=== PATIENT | male | born 1950 | race Caucasian/White ===

== ENCOUNTER 2016-06-09 12:58 | Emergency (ER) | payer MEDICARE, MEDICAID ==
[~2016-06-09] VITALS: Ht 170.2 cm; Wt 112.5 kg
[2016-06-09] MEDS ORDERED: ACAR100T (13:23)
[2016-06-09] MEDS ORDERED: WARF-23 (13:23)
[2016-06-09] MEDS ORDERED: ATEN50TA2 (13:23)
[2016-06-09] MEDS ORDERED: DOK (13:23)
[2016-06-09] MEDS ORDERED: ZIPR80CA12 (13:23)
[2016-06-09] MEDS ORDERED: SIMV20TA2 (13:23)
[2016-06-09] MEDS ORDERED: NITR0.4S14 (13:23)
[2016-06-09] MEDS ORDERED: HALO5TA (13:23)
[2016-06-09] MEDS ORDERED: BENZ5TA (13:23)
[2016-06-09] MEDS ORDERED: DOK100TA (13:23)
[2016-06-09] MEDS ORDERED: CLOP75TA2 (13:23)
[2016-06-09] MEDS ORDERED: INSULANT (13:23)
[2016-06-09] MEDS ORDERED: BREO1INH (13:23)
[2016-06-09] MEDS ORDERED: COUM7.5T PO (13:25)
[2016-06-09] MEDS ORDERED: NS 500 ML IV ONE (15:30)
[2016-06-09] MEDS ORDERED: CLINDAMYCIN 600 MG in APPROPRIATE DILUENT 1 EA IV ONE (15:30)
[2016-06-09 15:51] LABS: BASO % 0.5 % (0.0-1.0); EOS # 0.2 K/mm3 (0.0-0.50); LARGE UNSTAINED CELL # 0.1 K/mm3 (0.0-0.4); LYMPH % 9.6 % (24.0-44.0); MEAN CORPUSCULAR HEMOGLOBIN 30.9 pg (27.0-33.0); MEAN CORPUSCULAR VOLUME 93.6 fl (80.0-96.0); MONO # 0.6 K/mm3 (0.0-0.8); MONO % 5.6 % (0.0-5.0); NEUTROPHILS % 81.2 % (36.0-66.0); PLATELET COUNT, AUTOMATED 233 k/mm3 (150-450); RED CELL DISTRIBUTION WIDTH 13.7 % (11.5-14.5); WHITE BLOOD COUNT 9.8 K/mm3 (4.0-10.0)
[2016-06-09 16:05] LABS: CALCIUM LEVEL 9.6 MG/DL (8.8-10.2); CREATININE FOR GFR 2.19 MG/DL (0.70-1.30); GLOMERULAR FILTRATION RATE 32.3 (>49); POTASSIUM SERUM 4.8 MEQ/L (3.5-5.1)
[2016-06-09 16:11] LABS: ERYTHROCYTE SEDIMENTATION RATE 63 mm/hr (0-20)
[2016-06-09] MEDS ORDERED: CLEO300C2 PO (16:21)
--- NOTE | 2016-06-09 16:28 | REP ---
LEFT FOOT, FOUR VIEWS: HISTORY: Infection. There is no acute fracture or dislocation. The joint spaces are normal in appearance. Vascular calcification is present. IMPRESSION: There is no acute fracture or dislocation. Signed by Josh Harmon MD 06/09/2016 04:35 P
[2016-06-09 16:45] VITALS: BP 161/71
== END 2016-06-09 17:29 | disposition home or self-care (01) ==
LOC: M ED 14:59
DX: L03.116 Cellulitis of left lower limb (principal); E10.9 Type 1 diabetes mellitus without complications; I10 Essential (primary) hypertension; I25.2 Old myocardial infarction; E78.00 Pure hypercholesterolemia, unspecified; Z88.4 Allergy status to anesthetic agent; F17.200 Nicotine dependence, unspecified, uncomplicated; Z79.01 Long term (current) use of anticoagulants; Z79.899 Other long term (current) drug therapy

== ENCOUNTER 2016-06-27 10:24 | Emergency (ER) | payer MEDICARE, MEDICAID ==
[~2016-06-27] VITALS: Ht 172.7 cm; Wt 113.4 kg
[~2016-06-27 10:24] MED LIST: ACAR100T; ATEN50TA2; BENZ5TA; BREO1INH; CLEO300C2 PO; CLOP75TA2; COUM7.5T PO; DOK; DOK100TA; HALO5TA; INSULANT; NITR0.4S14; SIMV20TA2; WARF-23; ZIPR80CA12
[2016-06-27 12:23] LABS: BASO # 0.1 K/mm3 (0.0-0.2); BASO % 0.7 % (0.0-1.0); EOS # 0.1 K/mm3 (0.0-0.50); EOS % 1.2 % (0.0-3.0); LARGE UNSTAINED CELL # 0.1 K/mm3 (0.0-0.4); LARGE UNSTAINED CELL % 0.8 % (0.0-4.0); LYMPH % 10.8 % (24.0-44.0); MEAN CORPUSCULAR HEMOGLOBIN 30.6 pg (27.0-33.0); MEAN CORPUSCULAR HGB CONC 32.4 g/dl (32.0-36.5); MEAN CORPUSCULAR VOLUME 94.5 fl (80.0-96.0); MONO # 0.5 K/mm3 (0.0-0.8); MONO % 5.3 % (0.0-5.0); NEUTROPHILS # 6.9 K/mm3 (1.8-7.7); NEUTROPHILS % 81.2 % (36.0-66.0); PLATELET COUNT, AUTOMATED 183 k/mm3 (150-450); RED CELL DISTRIBUTION WIDTH 14.3 % (11.5-14.5); WHITE BLOOD COUNT 8.5 K/mm3 (4.0-10.0)
[2016-06-27 12:25] LABS: VENOUS O2 SATURATION 73.2 % (60.0-80.0); VENOUS PARTIAL PRESSURE CO2 49.6 mmHg (38.0-50.0); VENOUS PARTIAL PRESSURE O2 40.1 mmHg (30.0-50.0); VENOUS STANDARD HCO3 27.4 MEQ/L; VENOUS TOTAL CO2 31.4 MEQ/L (24.0-28.0)
[2016-06-27 12:37] LABS: INR 1.36
[2016-06-27 12:50] LABS: CALCIUM LEVEL 8.6 MG/DL (8.8-10.2); CREATININE FOR GFR 2.11 MG/DL (0.70-1.30); GLOMERULAR FILTRATION RATE 33.7 (>49); POTASSIUM SERUM 4.8 MEQ/L (3.5-5.1)
--- NOTE | 2016-06-27 14:20 | REP ---
AP PORTABLE CHEST: 06/27/2016. Comparison: 03/08/2016. Clinical history: DKA. Findings: Seated portable chest shows elevation of the right diaphragm laterally. Some subsegmental atelectatic change adjacent to it. No gross effusion or dense consolidation. The heart is enlarged even for this portable technique with left atrial and ventricular enlargement. No vascular redistribution or pulmonary edema. Some underlying fibrotic changes are noted. The aorta is without aneurysm. Airway is intact. There are diffuse degenerative changes in the spine. Impression: 1. Cardiomegaly without pulmonary edema or pleural effusion. 2. Some underlying fibrosis and COPD. 3. Elevated right diaphragm with some adjacent subsegmental atelectatic change. No definite infiltrate. Signed by Tristian June MD 06/27/2016 07:32 P
[2016-06-27] MEDS ORDERED: HumuLIN R (REGULAR) INSULIN (NovoLIN R) **100U/ML** PER UNIT SC ONE (14:30)
[2016-06-27 16:32] VITALS: BP 142/65
--- NOTE | 2016-06-27 21:14 | ECGEPIP ---
Stationary ECG Study [facility] - ED Test Date: 2016-06-27 Pat Name: MICHAEL ALVAREZ Department: Room: - Gender: M Ribbon Lap Machine Tender: alberto : 1950 Requested By: Dino Vera Order Number: [id number] Reading MD: Linette Gonzales Measurements Intervals [place] Rate: 73 P: 48 KS: 153 QRS: -42 QRSD: 110 T: 40 QT: 410 QTc: 453 Interpretive Statements SINUS RHYTHM POSSIBLE RIGHT VENTRICULAR CONDUCTION DELAY INFERIOR MYOCARDIAL INFARCTION, OF INDETERMINATE AGE WITH POSTERIOR EXTENSION Electronically Signed On 06-27-2016 21:13:55 EDT by Linette Gonzales
== END 2016-06-27 16:35 | disposition home or self-care (01) ==
LOC: M ED 11:26
DX: E11.65 Type 2 diabetes mellitus with hyperglycemia (principal); H26.9 Unspecified cataract; N18.9 Chronic kidney disease, unspecified; Z79.4 Long term (current) use of insulin

== ENCOUNTER → 2016-07-23 | Outpatient (REF) | payer MEDICARE, MEDICAID | LOC: M LAB REF 16:12 | PROVIDERS: ATTEND Surgery | DX: L97.524 Non-pressure chronic ulcer of other part of left foot with necrosis of bone (principal) ==

== ENCOUNTER → 2016-07-30 | Outpatient (REF) | payer MEDICARE, MEDICAID ==
[~2016-07-30] MED LIST changes: +ACAR100T PO; +ATEN50TA2 PO; +BENZ5TA PO; +BREO1INH INH; +COLA100C3 PO; +DOXY100T PO; +HALO5TA PO; +INSULANT SC; +LEG1TAB PO; +NITR4TASL SL; +PLAV75TA38 PO; +SIMV20TA2 PO; +TYLE325T5 PO; +WARF-21 PO; +ZIPR80CA12 PO
== END ==
LOC: M LAB REF 16:37
PROVIDERS: ATTEND Surgery
DX: E11.621 Type 2 diabetes mellitus with foot ulcer (principal); M86.172 Other acute osteomyelitis, left ankle and foot

== ENCOUNTER 2016-07-31 13:53 | Inpatient (IN) | payer MEDICARE, MEDICAID ==
[~2016-07-31] VITALS: Ht 170.2 cm; Wt 102.6 kg
[~2016-07-31 13:53] MED LIST changes: -ACAR100T PO; -ATEN50TA2 PO; -BENZ5TA PO; -BREO1INH INH; -COLA100C3 PO; -DOXY100T PO; -HALO5TA PO; -INSULANT SC; -LEG1TAB PO; -NITR4TASL SL; -PLAV75TA38 PO; -SIMV20TA2 PO; -TYLE325T5 PO; -WARF-21 PO; -ZIPR80CA12 PO
[2016-07-31] MEDS ORDERED: ACETAMINOPHEN 325 MG/10.15 ML UDC PO ONE (14:15)
[2016-07-31] MEDS ORDERED: MORPHINE 2 MG/ML 1ML SYRINGE IV ONE (14:15)
[2016-07-31] MEDS ORDERED: DOXY100T PO ×2 (14:22→15:59)
[2016-07-31 14:53] LABS: BASO % 0.2 % (0.0-1.0); EOS # 0.2 K/mm3 (0.0-0.50); EOS % 1.2 % (0.0-3.0); LARGE UNSTAINED CELL # 0.1 K/mm3 (0.0-0.4); LARGE UNSTAINED CELL % 0.8 % (0.0-4.0); LYMPH # 0.8 K/mm3 (1.5-4.5); LYMPH % 4.8 % (24.0-44.0); MEAN CORPUSCULAR HEMOGLOBIN 30.7 pg (27.0-33.0); MEAN CORPUSCULAR HGB CONC 33.1 g/dl (32.0-36.5); MEAN CORPUSCULAR VOLUME 92.7 fl (80.0-96.0); MONO # 0.7 K/mm3 (0.0-0.8); MONO % 4.1 % (0.0-5.0); NEUTROPHILS # 15.4 K/mm3 (1.8-7.7); NEUTROPHILS % 88.9 % (36.0-66.0); PLATELET COUNT, AUTOMATED 290 k/mm3 (150-450); RED CELL DISTRIBUTION WIDTH 13.5 % (11.5-14.5); WHITE BLOOD COUNT 17.3 K/mm3 (4.0-10.0)
[2016-07-31 15:12] LABS: CALCIUM LEVEL 8.4 MG/DL (8.8-10.2); CREATININE FOR GFR 2.22 MG/DL (0.70-1.30); GLOMERULAR FILTRATION RATE 31.8 (>49); POTASSIUM SERUM 4.2 MEQ/L (3.5-5.1)
[2016-07-31] MEDS ORDERED: PIPERACILLIN/TAZOBACTAM SOD 2.25 GM in D5W MINI-BAG PLUS 50 ML IV ONE (15:15)
[2016-07-31 15:42] LABS: ERYTHROCYTE SEDIMENTATION RATE 108 mm/hr (0-20)
[2016-07-31] MEDS ORDERED: ATEN50TA2 PO (15:59)
[2016-07-31] MEDS ORDERED: PLAV75TA38 PO (15:59)
[2016-07-31] MEDS ORDERED: COLA100C3 PO (15:59)
[2016-07-31] MEDS ORDERED: BENZ5TA PO (15:59)
[2016-07-31] MEDS ORDERED: ACAR100T PO (15:59)
[2016-07-31] MEDS ORDERED: NITR4TASL SL (16:04)
[2016-07-31] MEDS ORDERED: SIMV20TA2 PO (16:04)
[2016-07-31] MEDS ORDERED: HALO5TA PO (16:04)
[2016-07-31] MEDS ORDERED: TYLE325T5 PO (16:04)
[2016-07-31] MEDS ORDERED: LEG1TAB PO (16:04)
[2016-07-31] MEDS ORDERED: ZIPR80CA12 PO (16:04)
[2016-07-31] MEDS ORDERED: INSULANT SC ×2 (16:04)
[2016-07-31] MEDS ORDERED: BREO1INH INH (16:04)
[2016-07-31] MEDS ORDERED: WARF-21 PO (16:04)
[2016-07-31 17:00] VITALS: BP 135/65
[2016-07-31] MEDS ORDERED: VANCOMYCIN HCL 1,000 MG, VIAL MATE ADAPTER 1 EACH in D5W 250 ML IV ONE (17:00)
[2016-07-31] MEDS ORDERED: NITROGLYCERIN 0.4 MG SUBL TABLET SL PRN (17:00)
[2016-07-31] MEDS: PERCOCET 5MG/325MG TAB PO PRN (17:27)
[2016-07-31] MEDS: HEPARIN SOD (PORCINE) 5000 UNITS/ML VIAL SC SCH ×2 (17:37→23:41)
[2016-07-31] MEDS: WARFARIN SOD 7.5 MG TAB PO SCH (17:37)
[2016-07-31] MEDS ORDERED: VANCOMYCIN HCL 500 MG in D5W MINI-BAG PLUS 100 ML IV ONE (18:00)
[2016-07-31] MEDS: NS 1,000 ML IV SCH (18:58)
[2016-07-31] MEDS: BENZTROPINE 0.5 MG TAB PO SCH (18:58)
--- NOTE | 2016-07-31 19:05 | ECGEPIP ---
Stationary ECG Study [facility] Test Date: 2016-07-31 Pat Name: SATHISH ELIASD Department: Room: Q3346-02 Gender: M Finger Grip Machine Operator: rn : 1950 Requested By: JUANA HIDALGO Order Number: [id number] Reading MD: Sathish Hills Measurements Intervals [place] Rate: 67 P: 36 RI: 151 QRS: -31 QRSD: 107 T: 56 QT: 418 QTc: 442 Interpretive Statements SINUS RHYTHM MARKED LEFT AXIS DEVIATION INCOMPLETE RIGHT BUNDLE BRANCH BLOCK Old inferior wall myocardial infarct. NONSPECIFIC T-WAVE ABNORMALITY No significant change compared with 06/27/2016. Electronically Signed On 07-31-2016 19:05:34 EDT by Sathish Hills
--- NOTE | 2016-07-31 19:50 | REPUSA ---
MRI of the left foot Clinical statement: Diabetes, possible osteomyelitis. Technique: Multiecho multiplanar MRI images of the left foot were obtained without administration of contrast. No comparison is available. Ligaments: The ligaments appeared normal in caliber and contour. The achilles tendon appears grossly intact. Articular cartilage: Uniform signal and contour seen throughout the articular cartilage, with no oste ochondral defects appreciated. Bones: The osseous structures demonstrate uniform signal. No osseous tumors or lesions are seen. The bone marrow is unremarkable. Soft tissues: The surrounding soft tissues demonstrate diffuse edema. No focal fluid collection or ma ss is noted. The musculature appears within normal limits. No evidence of a joint effusion is seen. Impression: 1. No evidence of osteomyelitis. The osseous structures are unremarkable. 2. Mild diffuse nonspecific soft tissue edema.
[2016-07-31] MEDS: LEVEMIR (INSULIN DETEMIR) 1 UNITS/0.01ML SC SCH (20:24)
[2016-07-31] MEDS ORDERED: LEVEMIR (INSULIN DETEMIR) 1 UNITS/0.01ML SC ONE (20:30)
[2016-07-31] MEDS: SIMVASTATIN 20 MG TAB PO SCH (21:06)
[2016-07-31] MEDS: DOCUSATE SODIUM 100 MG CAP PO SCH (21:06)
[2016-07-31] MEDS: ZIPRASIDONE 80 MG CAP (GEODON) PO SCH (21:07)
[2016-07-31] MEDS: CEFEPIME HCL 2 GM in D5W MINI-BAG PLUS 50 ML IV SCH (21:11)
[2016-07-31 22:00] VITALS: BP 129/61
--- NOTE | 2016-07-31 23:02 | HPE ---
DATE OF ADMISSION: 07/31/2016 PRIMARY CARE PROVIDER: Dr. Alok Casey OUTPATIENT HAND INSPECTOR: Dr. Eugene Marcus HISTORY OF PRESENT ILLNESS: This patient is a 65-year-old male with past medical history significant for chronic obstructive pulmonary disease (COPD), hypertension, deep vein thrombosis (DVT), myocardial infarction ([place]), type 2 diabetes, peripheral neuropathy, schizoaffective disorder who came to [facility] for not feeling well and having a sense of doom. Patient has a history of chronic wound. Patient is being followed with intensive care medicine specialist, Dr. Marcus. Patient has been taking different antibiotics for his wound in the past few weeks. Currently, patient has been taking doxycycline; however, wound has not been showing significant improvement, and on 07/30/2016, patient had a wound debridement of partial amputation of the left 5th toe in the wound care clinic. When had arrived in emergency room, patient was found to have elevated white count and also have a temperature of 101.8, and hospitalist team was called for admission. ALLERGIES: BUPIVACAINE PAST MEDICAL HISTORY: 1. COPD. 2. Hypertension. 3. DVT. 4. [place]. 5. Type 2 diabetes. 6. Peripheral neuropathy. 7. Schizoaffective disorder. PAST SURGICAL HISTORY: 1. Spine infection. 2. Right above-knee amputation in 2001. 3. Cardiac stent in 2015. HOME MEDICATIONS: - Plavix 75 mg by mouth daily - nitroglycerine 0.4 mg sublingual - warfarin 7.5 mg daily - ziprasidone 80 mg twice a day - Lantus 35 units morning, 30 units evening - Tylenol 650 mg by mouth every 6 hours as needed - atenolol 50 mg by mouth daily - benztropine 0.5 mg at bedtime - Breo one puff inhalation daily - haloperidol 5 mg by mouth twice a day - simvastatin 20 mg by mouth daily - Patient was recently on doxycycline 100 mg by mouth twice a day. REVIEW OF SYSTEMS: GENERAL: Positive fever. No chills. HEENT: Decreased visual acuity due to bilateral cataracts; otherwise, no vision changes, no auditory changes. CARDIOVASCULAR: History of [place] status post stent. Currently does not have any chest pain or palpitations. RESPIRATORY: History of COPD. No wheezes. No cough. No sputum production. GASTROINTESTINAL: No nausea. No vomiting. No abdominal pain. MUSCULOSKELETAL: Chronic wound, and patient has a right above-knee amputation. Patient recently had a left 5th toe partial amputation in Dr. Marcus's wound care clinic on 07/30/2016. NEUROLOGIC: Decreased sensation in the extremities. OBJECTIVE: VITAL SIGNS: Temperature is 101.8, pulse is 78, respirations 18, blood pressure 132/64, pulse oximetry 94% in room air. GENERAL: Morbidly obese. Poor historian. Patient is alert, awake, and oriented times three. Very poor hygiene. HEENT: Normocephalic, atraumatic. Extraocular motor grossly intact. CARDIOVASCULAR: Positive S1, S2, regular rate. Positive systolic murmur. RESPIRATORY: Decreased breath sounds due to body habitus, but I cannot appreciate any wheezes. No rhonchi. ABDOMEN: Morbidly obese, soft, nontender, nondistended. Bowel sounds present. EXTREMITIES: The left 5th toe was amputated. There is erythema and some partial necrotic tissue, and the wound site has strong foul smell. There is some purulent discharge noted on the dressing. On the bottom of the left foot there is also a track of erythematous tissue. There are some chronic venous stasis changes and some early sign of infection of the left anterior briggs. Patient has a right-sided above-knee amputation. Sensation to fine touch is decreased in the peripheral extremities. Muscle strength 5/5. LABORATORY DATA: WBC 17.3, hemoglobin 12.6, hematocrit 38.1, platelet count is 290. ESR is 108. Sodium is 137, potassium 4.2, chloride 100, carbon dioxide 28, BUN 37, creatinine 2.22, GFR 31.8, fasting glucose 161, calcium is 8.4. C-reactive protein is 13.2. ASSESSMENT AND PLAN: 1. Left foot infection. Patient will be admitted to medical/surgical floor under inpatient status. Patient's recent wound care clinic notes were reviewed. Patient has been working with Dr. Marcus for his ongoing chronic wound. According to clinic notes, patient's left 5th partial amputated toe showed complete ischemic necrosis to the level of the web space with underlying purulent material. The 5th toe was completely amputated and debrided in the clinic on 07/30/2016. Today during examination, there is concern for active infection, and I will order imaging study to rule out osteomyelitis. Patient has diabetes, very noncompliant, and patient has a chronic wound. Patient also has a history of methicillin-resistant Staphylococcus aureus (MRSA). Patient was started on vancomycin and cefepime. It may be beneficial to have surgical evaluation. Unfortunately, at this moment our infectious disease specialist is not available at this moment. We will follow the blood cultures. 2. Patient has a history of deep vein thrombosis (DVT). According to the history, patient was prescribed warfarin. Will follow with INR. The last few INR measurements show patient's INR has been subtherapeutic. It raises the concern for severe noncompliance. Will continue to adjust the patient's warfarin dosage. 3. Type 2 insulin-dependent diabetes. Patient had an A1c of 8.3 in June. According to patient, patient usually has a tendency not to use the insulin as instructed. He also has sign of significant medical noncompliance. 4. Hypertension. Will continue to follow. Patient is on atenolol. 5. History of myocardial infarction ([place]), status post cardiac stent. Patient is on Plavix. 6. Bilateral cataracts. 7. Peripheral neuropathy. 8. Schizoaffective disorder. Patient taking haloperidol, and patient taking ziprasidone. 9. Deep vein thrombosis (DVT) prophylaxis. Patient will be on heparin.
[2016-08-01] VITALS (9 sets, daily range): BP systolic 128–190; BP diastolic 66–85
[2016-08-01] MEDS: PERCOCET 5MG/325MG TAB PO PRN ×4 (03:53→20:33)
[2016-08-01] MEDS: HEPARIN SOD (PORCINE) 5000 UNITS/ML VIAL SC SCH (06:00)
[2016-08-01] MEDS: CEFEPIME HCL 2 GM in D5W MINI-BAG PLUS 50 ML IV SCH ×2 (07:17→20:32)
[2016-08-01] MEDS: NS 1,000 ML IV SCH ×2 (07:18→15:40)
[2016-08-01 08:26] LABS: MEAN CORPUSCULAR HEMOGLOBIN 30.2 pg (27.0-33.0); MEAN CORPUSCULAR HGB CONC 33.2 g/dl (32.0-36.5); MEAN CORPUSCULAR VOLUME 90.9 fl (80.0-96.0); RED CELL DISTRIBUTION WIDTH 13.5 % (11.5-14.5); WHITE BLOOD COUNT 14.1 K/mm3 (4.0-10.0)
[2016-08-01] MEDS ORDERED: LIDOCAINE 1% MDV 20ML VIAL As Ordered ONE (08:29)
[2016-08-01 08:50] LABS: CALCIUM LEVEL 7.6 MG/DL (8.8-10.2); CREATININE FOR GFR 2.06 MG/DL (0.70-1.30); GLOMERULAR FILTRATION RATE 34.7 (>49); MAGNESIUM LEVEL 1.8 MG/DL (1.8-2.4); POTASSIUM SERUM 4.1 MEQ/L (3.5-5.1)
[2016-08-01] MEDS ORDERED: fentaNYL 100 MCG/2 ML INJECTION (J3010) As Ordered ONE (08:56)
[2016-08-01] MEDS ORDERED: MIDAZOLAM INJ 2 MG/2 ML VIAL (J2250) As Ordered ONE (08:56)
[2016-08-01] MEDS ORDERED: PROPOFOL 200 MG/20 ML VIAL As Ordered ONE (08:57)
[2016-08-01] MEDS: VANCOMYCIN HCL 1,000 MG, VIAL MATE ADAPTER 1 EACH in D5W 250 ML IV SCH (09:00)
[2016-08-01 09:11] LABS: INR 2.5
[2016-08-01] MEDS ORDERED: VANCOMYCIN 1000 MG/20 ML VIAL (J3370) As Ordered ONE (09:23)
[2016-08-01] MEDS ORDERED: D5W 250ML BAG As Ordered ONE (09:27)
[2016-08-01] MEDS ORDERED: LR 1,000 ML IV SCH (09:30)
[2016-08-01] MEDS ORDERED: fentaNYL 100 MCG/2 ML INJECTION (J3010) IV PRN (09:30)
[2016-08-01] MEDS ORDERED: ONDANSETRON 4MG/2ML VIAL (J2405) IV PRN (09:30)
[2016-08-01] MEDS: LEVEMIR (INSULIN DETEMIR) 1 UNITS/0.01ML SC SCH ×2 (10:54→20:32)
[2016-08-01] MEDS: CLOPIDOGREL 75 MG TAB PO SCH (10:55)
[2016-08-01] MEDS: DOCUSATE SODIUM 100 MG CAP PO SCH ×2 (10:55→20:32)
[2016-08-01] MEDS: ATENOLOL 50 MG TAB PO SCH (10:55)
[2016-08-01] MEDS: ZIPRASIDONE 80 MG CAP (GEODON) PO SCH ×2 (10:55→20:33)
--- NOTE | 2016-08-01 11:33 | PHACANCOPD ---
PHARMACY VANCOMYCIN DOSING Pt Demographics Demographics Patient Age:65 , Weight:107.000 , Gender: male Adjusted Body Weight Date: 08/01/16, Adjusted Body Weight: [82] Kg Events Past 24 Hours Events Past 24 Hours: YES: Elevation in WBC, Pending Procedures, NO: Dialysis, Diuretic Therapy, Change in CrCl, Fever, Pending Diagnostics, Other Vancomycin Vancomycin indication: Hx of MRSA Vancomycin Target Ranges: 15-20 mcg/ml Vancomycin Load Y/N: Yes Load Dose Date Time Vancomycin Load Dose: 1500mg Date: 07/31 Time: ~19:00 Vancomycin Dose Date: 08/01/16. Current Vancomycin Dose: [1g IV q24h @09] Intermittent Dosing?: No Labs Labs Item Value Date Time White Blood Count 17.3 K/mm3 H 07/31/16 1436 White Blood Count 14.1 K/mm3 H 08/01/16 0809 Creatinine 2.22 MG/DL H 07/31/16 1436 Creatinine 2.06 MG/DL H 08/01/16 0809 C-Reactive Protein, Quantitative 13.20 MG/DL H 07/31/16 1436 C-Reactive Protein, Quantitative 13.80 MG/DL H 08/01/16 0809 Micro Microbiology 07/31/16 Blood Culture, Received Pending 07/31/16 Blood Culture, Received Pending 08/01/16 Gram Stain, Received Pending 08/01/16 Wound Culture, Received Pending 08/01/16 Anaerobic Culture, Received Pending 07/31/16 Wound Culture, Received Pending Creatinine Clearance Date:08/01/16. Creatinine Clearance: [41 ml/min]. Pending Labs Vanco trough scheduled 08/02 @08:00 Assessment and Plan Maintaining Current Dose?: Yes Reason for dose change: No Dose Change Pharmacist Note Pharmacist Note Date: 08/01/16. Pharmacist note: pt has been admitted for left foot cellulitis/ osteomyelitis s/p 5th toe amputation. He has failed outpatient doxycycline. Pt went to the OR this morning for incision and drainage, cultures are pending. The last left leg wound culture done in our lab was in 2011 and grew MRSA (SUKH = 1). Baseline SCr appears to be ~2, SCr has improved today from yesterday. He has not been on vancomycin here since 2001, I started him with a 1500mg load, followed by 1g q24h to start ~12 hours later. I have a trough scheduled tomorrow before the 3rd dose. We will continue to monitor. Mikey Edge.D. August 01, 2016 11:33
--- NOTE | 2016-08-01 12:33 | IPN ---
DATE OF SERVICE: 08/01/2016 The patient seen and examined. No acute events overnight. Denies any fevers, chills. Reported chronic back pain. VITAL SIGNS: Temperature 97.6, pulse 63, respiration 20, blood pressure 167/94, pulse oximetry 95% on room air. LABORATORY: WBC 14.1, hemoglobin and hematocrit 12.8/38.4, platelets 253. Chemistry: Sodium 140, potassium 4.1, chloride 107, bicarbonate 26, BUN 36, creatinine 2.06. MRI: No evidence of osteomyelitis. Soft tissue edema, diffuse. PHYSICAL EXAMINATION: GENERAL: The patient morbidly obese. Poor historian. Alert and oriented. In no acute distress. Poor hygiene. HEENT: Normocephalic, atraumatic. Pupils bilaterally equal, round, and reactive. CARDIOVASCULAR: Regular rate and rhythm. Normal S1, S2. 2/6 systolic murmur. RESPIRATION: Decreased breath sound bilateral base. No wheeze, rales, or rhonchi. ABDOMEN: Morbidly obese, soft, nontender. Positive bowel sounds. EXTREMITIES: Left 5th toe amputated, erythema and partial necrotic tissue. Wound site is foul-smelling, purulent. Discharge noted. The patient has right-side above-knee amputation. ASSESSMENT AND PLAN: This is a 65-year-old male patient with past medical history significant for chronic obstructive pulmonary disease (COPD), hypertension, deep venous thrombosis (DVT), myocardial infarction, coronary arterial disease, type 2 diabetes, peripheral neuropathy, schizoaffective disorder, who came to [facility] with left foot infection, cellulitis. Problems: 1. Left foot ulcers and cellulitis. MRI negative for osteomyelitis. The patient was originally followed by Dr. Marcus. The patient's left 5th toe partial amputation was done for ischemic necrosis, but actually Dr. Carter has been consulted. They can take him to the operating room (OR) for debridement. 2. History of methicillin-resistant Staphylococcus aureus (MRSA). Started on vancomycin and cefepime. Will consult infectious disease, Dr. Gaona, for antibiotic recommendation. Followup cultures. 3. History of deep venous thrombosis. Continue Coumadin. Followup international normalized ratio (INR). Currently, is therapeutic. The patient poorly compliant. 4. Type 2 insulin-dependent diabetes. Poorly compliant with diabetic neuropathy. Continue insulin regimen as ordered. Adjust as needed. 5. Hypertension. The patient on atenolol. Continue current medication. 6. Coronary arterial disease. The patient on Plavix, atenolol, and Coumadin. 7. Bilateral cataract. Outpatient followup. 8. Peripheral neuropathy. Outpatient followup. Continue current medication. 9. Schizoaffective disorder. Continue home medication, Geodon and Haldol. 10. Deep venous thrombosis (DVT) prophylaxis. The patient is on Coumadin with therapeutic INR. DISPOSITION: Pending clinical improvement. Infectious disease consultation.
[2016-08-01] MEDS: HALOPERIDOL 5 MG TAB PO SCH (13:23)
--- NOTE | 2016-08-01 14:36 | CR ---
DATE OF CONSULTATION: 07/31/2016 REASON FOR CONSULTATION: Left foot infection. HISTORY: Sathish Cisneros is a 65-year-old diabetic male who was admitted to the hospital earlier this morning with left foot infection. The patient states that he has had a wound to his left foot with infection, for which he has been undergoing treatment by Dr. Marcus. He states that yesterday, he had an amputation of his left fifth toe at the wound care center. He had previously been on doxycycline which he states was prescribed by his primary care physician. He notes that this morning, he was having significant pain, worsening redness to his foot, and states just felt sick, so he called the ambulance to be brought to the hospital. He states the redness does appear to be worse to him compared to yesterday on his foot. Per hospitalist Dr. Marcus was attempted to be contacted but was unable to be reached. PAST MEDICAL HISTORY: Significant for diabetes uncontrolled, hypertension, high cholesterol, history of right leg amputation in peripheral vascular disease, history of [place], COPD PAST SURGICAL HISTORY: 1. Right leg amputation, states around 2001. 2. A fifth toe amputation. 3. Cardiac stent ALLERGIES: BUPIVACAINE. SOCIAL HISTORY: The patient admits to smoking. CURRENT MEDICATIONS: Vancomycin, atenolol, Plavix, haloperidol, insulin, Colace, simvastatin, Geodon, cefepime, Cogentin, Nitrostat, Coumadin, Tylenol, Percocet. VITAL SIGNS: Temperature maximum (T-max) on admission was 101.8, most recently is 98.7, blood pressure 135/65, pulse 66, pulse oximetry 90% on room air. Respiratory rate is 14. LABORATORY DATA: White blood cell count on admission was 17.3, ESR is 108. Hemoglobin 12.6, hematocrit 38.1. CRP is 13.2. Creatinine is 2.22 and GFR of 31.8. Hemoglobin A1c is 8.2. LOWER EXTREMITY EXAMINATION: There has been amputation of the right leg. Left foot is examined. There has been amputation of the left fifth toe. There is erythema extending proximally from the wound site, as well as at the dorsal aspect of the foot, as well as plantarly into the mid arch. There is general tenderness along palpation of the erythema. There is warmth. There is some necrotic tissue within the wound. Pulses are weakly palpable. There is good capillary refill to the distal toes. There is pigment change to the left lower leg consistent with venous disease. CULTURE REPORTS: Blood and wound cultures are pending. IMAGING: MRI images are also pending at this time. ASSESSMENT: A 65-year-old male status post left fifth toe amputation with extending cellulitis, diabetes, peripheral vascular disease. PLAN: We will plan to take him to the operating room tomorrow for incision and drainage. Continue current antibiotics. We will take more cultures in the operating room. We will plan to leave wound open. The patient will continue his wound care with Dr. Marcus once infection is controlled. FLORENTINO
[2016-08-01] MEDS: WARFARIN SOD 7.5 MG TAB PO SCH (16:25)
[2016-08-01] MEDS: BENZTROPINE 0.5 MG TAB PO SCH (17:41)
[2016-08-01] MEDS: SIMVASTATIN 20 MG TAB PO SCH (20:32)
[2016-08-02] MEDS: PERCOCET 5MG/325MG TAB PO PRN ×4 (01:03→20:49)
[2016-08-02 02:00] VITALS: BP 133/76
[2016-08-02 06:00] VITALS: BP 141/66
[2016-08-02 06:47] LABS: MEAN CORPUSCULAR HEMOGLOBIN 29.7 pg (27.0-33.0); MEAN CORPUSCULAR HGB CONC 32.2 g/dl (32.0-36.5); MEAN CORPUSCULAR VOLUME 92.3 fl (80.0-96.0); RED CELL DISTRIBUTION WIDTH 13.7 % (11.5-14.5); WHITE BLOOD COUNT 14.3 K/mm3 (4.0-10.0)
[2016-08-02 06:49] LABS: INR 2.87
[2016-08-02 06:57] LABS: CALCIUM LEVEL 8.1 MG/DL (8.8-10.2); CREATININE FOR GFR 2.32 MG/DL (0.70-1.30); GLOMERULAR FILTRATION RATE 30.2 (>49); MAGNESIUM LEVEL 1.9 MG/DL (1.8-2.4); POTASSIUM SERUM 3.9 MEQ/L (3.5-5.1)
--- NOTE | 2016-08-02 08:49 | RO ---
DATE OF PROCEDURE: 08/01/2016 PREOPERATIVE DIAGNOSIS: Left foot cellulitis. POSTOPERATIVE DIAGNOSIS: Left foot cellulitis. PROCEDURE: Left foot incision and drainage. SURGEON: Shine Carter DPM TAP AND DIE MAKER TECHNICIAN: None. ANESTHESIA: Monitored anesthesia care with preop injection of 18 mL of 1% lidocaine plain. ESTIMATED BLOOD LOSS: Minimal. MATERIALS: None. HEMOSTASIS: None. COMPLICATIONS: None. CONDITION: Stable. SPECIMEN: Left proximal phalanx for pathology and swab cultures aerobic and anaerobic. INDICATIONS FOR PROCEDURE: Sathish Cisneros is a 65-year-old male who was admitted to the hospital yesterday with worsening left foot infection. He states that in July 30, he had amputation of his 5th toe by Dr. Marcus at the wound care center. He states overnight he had worsening pain and worsening redness to his foot and that he felt like he had a fever and felt sick. He called the ambulance and was brought to the hospital. There, he was admitted and started on antibiotics. He was noted to have erythema extending from the amputation site with some necrosis within the wound. The decision was made to bring him to the operating room for irrigation and drainage. The patient side and site were identified and marked in the preop holding area. Consent was reviewed and obtained. All risks, complications and alternatives to the procedure were explained to the patient in detail. All questions were answered. DESCRIPTION OF PROCEDURE: Patient was brought to the operating room and placed on the operating room table in supine position. Monitored anesthesia care was delivered by the anesthesia team. Preoperative injection of 18 mL of 1% lidocaine plain were injected to the left foot. The left foot was prepped with Betadine solution in a normal sterile fashion. No tourniquet was applied due to the patient's poor blood flow. The wound was inspected. There were some gangrenous changes around the periphery of the amputation site. There was some necrotic tissue within the wound. There was erythema extending dorsally and plantarly into the mid arch. A dorsal incision was made at the dorsal aspect of the left 5th toe amputation site. The remaining portion of the proximal phalanx was identified. This was dysvascular and necrotic in appearance. This was disarticulated at the metatarsophalangeal joint and sent for pathology. The remaining necrotic tissue was debrided. There was tracking noted plantarly consistent with area of erythema along the plantar arch. No tracking was found dorsally. Pulsatile lavage was used to irrigate the area. Deep culture swabs were taken. Any remaining necrotic tissue was debrided. Packing was placed, 1/4-inch, along the plantar tracking and saline soaked gauze was used to pack the remaining portion of the wound. Sterile dressings were applied. The patient was brought to PACU with vital signs stable and neurovascular status intact. He will be readmitted to the floor for continuing antibiotics, await speciation. Will continue to follow. cc: Eugene Marcus MD
[2016-08-02] MEDS: ZIPRASIDONE 80 MG CAP (GEODON) PO SCH ×2 (09:41→20:46)
[2016-08-02] MEDS: HALOPERIDOL 5 MG TAB PO SCH (09:41)
[2016-08-02] MEDS: ATENOLOL 50 MG TAB PO SCH (09:41)
[2016-08-02] MEDS: CLOPIDOGREL 75 MG TAB PO SCH (09:41)
[2016-08-02] MEDS: DOCUSATE SODIUM 100 MG CAP PO SCH ×2 (09:41→20:46)
[2016-08-02] MEDS: CEFEPIME HCL 2 GM in D5W MINI-BAG PLUS 50 ML IV SCH (09:41)
[2016-08-02] MEDS: LEVEMIR (INSULIN DETEMIR) 1 UNITS/0.01ML SC SCH ×2 (09:42→20:46)
[2016-08-02] MEDS: VANCOMYCIN HCL 1,000 MG, VIAL MATE ADAPTER 1 EACH in D5W 250 ML IV SCH (09:42)
--- NOTE | 2016-08-02 10:07 | HPE ---
DATE OF ADMISSION: 08/02/2016 The patient is seen and examined at bedside, denies overnight complaints, says his pain is currently controlled, denies nausea or vomiting, fever or chills. Temperature is 97.3, temperature maximum (T-max) is 98.9. Other vitals are stable. LABORATORY DATA: Labs are reviewed. White blood cell count 14.3, hemoglobin 11.2 , hematocrit 34.7, CRP 15.6. Cultures and gram stains are pending. Pathology is pending. LOWER EXTREMITY EXAMINATION: There is sanguineous drainage within the dressings. Upon removal, there is no active bleeding. There is improvement in odor and appearance of the wound. There is minimal necrosis within the wound, no purulence, improvement in erythema surrounding the wound. ASSESSMENT: 65-year-old male with infection status post left fifth toe amputation, status post incision and drainage. PLAN: Continue current antibiotics, await cultures, infectious disease has been consulted. The patient states that he is scheduled for an angiogram with vascular surgeon tomorrow. The case was discussed with Dr. Marcus, presently will plan local wound care and continued antibiotics. Will plan follow up with Dr. Marcus once patient discharged. Continue current wound care presently. Will follow. [facility]ATR[facility] CENTERAlexandru
[2016-08-02 14:00] VITALS: BP 169/79
[2016-08-02] MEDS: LR 1,000 ML IV SCH (14:05)
--- NOTE | 2016-08-02 14:06 | PHACANCOPD ---
PHARMACY VANCOMYCIN DOSING Pt Demographics Demographics Patient Age:65 , Weight:106.700 , Gender: male Adjusted Body Weight Date: 08/01/16, Adjusted Body Weight: [82] Kg Events Past 24 Hours Events Past 24 Hours: YES: Change in CrCl, NO: Dialysis, Diuretic Therapy, Fever, Elevation in WBC, Pending Diagnostics , Pending Procedures, Other Vancomycin Vancomycin indication: Hx of MRSA Vancomycin Target Ranges: 15-20 mcg/ml Vancomycin Load Y/N: Yes Load Dose Date Time Vancomycin Load Dose: 1500mg Date: 07/31 Time: ~19:00 Vancomycin Dose Date: 08/02/16. Current Vancomycin Dose: [1g IV q24h @09] Date: 08/01/16. Current Vancomycin Dose: [1g IV q24h @09] Intermittent Dosing?: No Labs Labs Item Value Date Time White Blood Count 17.3 K/mm3 H 07/31/16 1436 White Blood Count 14.1 K/mm3 H 08/01/16 0809 White Blood Count 14.3 K/mm3 H 08/02/16 0621 Creatinine 2.22 MG/DL H 07/31/16 1436 Creatinine 2.06 MG/DL H 08/01/16 0809 Creatinine 2.32 MG/DL H 08/02/16 0621 Vancomycin Level Trough 11.2 UG/ML 08/02/16 0810 C-Reactive Protein, Quantitative 13.20 MG/DL H 07/31/16 1436 C-Reactive Protein, Quantitative 13.80 MG/DL H 08/01/16 0809 C-Reactive Protein, Quantitative 15.60 MG/DL H 08/02/16 0621 Micro Microbiology 07/31/16 Blood Culture - Preliminary, Resulted No growth after 24 hours . All specim... 07/31/16 Blood Culture - Preliminary, Resulted No growth after 24 hours . All specim... 08/01/16 Gram Stain - Final, Resulted 08/01/16 Wound Culture, Resulted Pending 08/01/16 Anaerobic Culture, Resulted Pending 07/31/16 Wound Culture - Preliminary, Resulted Staphylococcus Epidermidis Streptococcus Group C Creatinine Clearance Date:08/01/16. Creatinine Clearance: [41 ml/min]. Pending Labs Vanco trough scheduled 08/02 @08:00 Assessment and Plan Maintaining Current Dose?: Yes Reason for dose change: No Dose Change Pharmacist Note Pharmacist Note 08/02/16: Pt's Scr increased from yesterday 2.06 to 2.32 today. There was a decrease in WBC. Wound culture is pending still on foot with no blood growth after 24 hours, but toe grew staph and strep. We are going to continue vanc 1g q24h@9 as trough level is still trending upwards towards our goal of 15-20mcg/ ml. We will continue to monitor Scr and make dosing adjustments as necessary. Date: 08/01/16. Pharmacist note: pt has been admitted for left foot cellulitis/ osteomyelitis s/p 5th toe amputation. He has failed outpatient doxycycline. Pt went to the OR this morning for incision and drainage, cultures are pending. The last left leg wound culture done in our lab was in 2011 and grew MRSA (SUKH = 1). Baseline SCr appears to be ~2, SCr has improved today from yesterday. He has not been on vancomycin here since 2001, I started him with a 1500mg load, followed by 1g q24h to start ~12 hours later. I have a trough scheduled tomorrow before the 3rd dose. We will continue to monitor. JULIANNA CALLE PHARMACY August 02, 2016 14:06
[2016-08-02] MEDS: ACETYLCYSTEINE 20% 4 ML VIAL (200MG/ML) PO SCH ×2 (16:33→20:46)
[2016-08-02] MEDS ORDERED: WARFARIN SOD 7.5 MG TAB PO SCH (17:00)
[2016-08-02] MEDS: BENZTROPINE 0.5 MG TAB PO SCH (17:43)
[2016-08-02] MEDS: SIMVASTATIN 20 MG TAB PO SCH (20:47)
[2016-08-02 22:00] VITALS: BP 145/70
[2016-08-03] VITALS (7 sets, daily range): BP systolic 130–160; BP diastolic 73–82
[2016-08-03] MEDS: LR 1,000 ML IV SCH ×2 (02:37→17:43)
[2016-08-03] MEDS: PERCOCET 5MG/325MG TAB PO PRN ×2 (02:37→21:14)
--- NOTE | 2016-08-03 05:43 | CR ---
DATE OF CONSULTATION: 08/02/2016 REASON FOR CONSULTATION: Asked to consult by hospitalist for evaluation of left foot cellulitis with acute osteomyelitis of the left 5th toe that was amputated. HISTORY OF PRESENT ILLNESS: Mr. Cisneros is a 65-year-old gentleman with neuropathic diabetic insulin-dependent diabetes, poorly controlled, continued tobacco abuse. He has had an open ulceration on the left foot for at least 3-4 weeks. He was seen the first time by Dr. Marcus on July 16, where he described his toe at that time to be infected with a diabetic foot ulcer. The patient had been on Augmentin 875 mg twice a day by his primary care provider, Dr. Alok Casey, that was started on June 30. He was seen in followup a week later, and Dr. Marcus did describe the toe as being gangrenous. On July 30 he had an amputation of the toe done at the clinic. The patient developed severe pain in his foot with fever, chills, and worsening redness that extended into his foot, and therefore he came to the hospital. The patient was taken to the operation room by Dr. Shine Carter and had debridement of the wound and amputation of the toe. The proximal residual phalanx was sent for pathology and culture. The wound was described as being necrotic. There was erythema extended dorsally into the mid arch, and the remaining portion of the proximal phalanx was amputated. Patient is doing fairly well today, but he was taking his shower and was having a hard time getting into bed. He asked not to be bothered. MEDICAL HISTORY: 1. Insulin-dependent diabetes, poorly controlled. 2. Chronic obstructive pulmonary disease (COPD). 3. Hypertension. 4. History of deep venous thrombosis (DVT). 5. Myocardial infarction. 6. Coronary artery disease with stenting. 7. Peripheral neuropathy. 8. Schizoaffective disorder. 9. 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 He had a femoral popliteal bypass graft done to that leg in June 2001 and eventually ended up with a below-knee amputation (BKA) after failure of bypass. SURGICAL HISTORY: 1. Spine infection in the 1960s. 2. Right above-knee amputation in 2001 after three debridements and right femoral popliteal graft stenting. SOCIAL HISTORY: Patient smokes at least a pack a day. He is not interested in quitting. ALLERGIES: BUPIVACAINE. REVIEW OF SYSTEMS: He has fever but no chills. He has decreased visual acuity due to cataracts. He denied having any chest pain at this time. He has no cough or shortness of breath. He had some nausea on admission, but now he is feeling better. No abdominal pain. He had a right above-knee amputation. Has not used his prosthesis for awhile. He just uses a walker around the house. He has some pain in the foot after surgery and decreased sensation in both feet. MEDICATIONS: - warfarin 6 mg by mouth daily - Mucomyst 600 mg twice a day - vancomycin 1 gram IV every 24 hours - atenolol 50 mg by mouth daily - Plavix 75 mg daily - Haldol 5 mg daily - Levemir 35 units in the morning and 30 units at bedtime - Colace 100 mg by mouth twice a day - Zocor 20 mg by mouth at bedtime - Geodon 80 mg by mouth twice a day - cefepime 2 grams IV every 12 hours - Cogentin 0.5 mg every 6 p.m. - nitroglycerine as needed - Percocet as needed for pain LABORATORY DATA: White count on admission was 17.3, today was 14.3, hemoglobin 11.2, hematocrit 34.7, platelets 291, ESR 108. Sodium 140, potassium 3.9, chloride 106, bicarbonate 29, BUN 32, creatinine 2.32 , glucose 78. HbA1c is 8.2. CRP was 13.2 on admission, up to 15.6 today. PHYSICAL EXAMINATION: He is a healthy, obese gentleman in no acute distress. He seems unhappy. He has pain in his foot. HEART: Normal S1, S2 with no murmurs appreciated. LUNGS: Clear. Diminished at bases. No wheezes. ABDOMEN: Morbidly obese. Soft, nontender. EXTREMITIES: Diminished popliteal pulses on the left side. Right BKA with stump well healed. Left foot at site of amputation, 5th toe amputation was not examined, but he has tenderness and erythema extending along the plantar aspect of the foot, which I could see under the dressing. NEUROLOGIC: He is alert and oriented times three. Moves all extremities, but he is unhappy. MICROBIOLOGY: Blood cultures from 07/31/2016: No growth after 48 hours. Wound culture from the left foot in the emergency room (ER) with Staphylococcus epidermidis and group C streptococcus. Intraoperative wound cultures are still pending. The Gram stain had no cells, no organisms seen. IMPRESSION: This is a 65-year-old gentleman who had acute osteomyelitis of the 5th toe, status post amputation at the office, who developed gangrene and worsening cellulitis involving the foot. He had been on Augmented for a short course of 2 weeks followed by doxycycline. When he was admitted he should have still been on doxycycline. Most likely the cellulitis is from group B streptococcus, less likely Staphylococcus epidermidis. The patient is on vancomycin and cefepime. Cefepime is overkill. PLAN: Discontinue IV cefepime. Continue with vancomycin until results of wound culture are available, I suspect that he will only need ceftriaxone 2 grams daily after checking on the wound and discussing the case with Dr. Carter. Will decide whether he will need prolonged IV antibiotics, but my suspicion is the whole bone infection was clear. He had an MRI done on admission, which showed soft tissue swelling but no evidence of osteomyelitis. This will be discussed with Dr. Marcus and Dr. Carter at a later time, and further antibiotic decision will depend on findings. FLORENTINO
[2016-08-03 08:02] LABS: MEAN CORPUSCULAR HEMOGLOBIN 29.8 pg (27.0-33.0); MEAN CORPUSCULAR HGB CONC 32.5 g/dl (32.0-36.5); MEAN CORPUSCULAR VOLUME 91.9 fl (80.0-96.0); RED CELL DISTRIBUTION WIDTH 13.7 % (11.5-14.5); WHITE BLOOD COUNT 13.8 K/mm3 (4.0-10.0)
[2016-08-03 08:17] LABS: INR 2.97
[2016-08-03 08:38] LABS: CALCIUM LEVEL 7.8 MG/DL (8.8-10.2); CREATININE FOR GFR 2.06 MG/DL (0.70-1.30); GLOMERULAR FILTRATION RATE 34.7 (>49); MAGNESIUM LEVEL 2.1 MG/DL (1.8-2.4); POTASSIUM SERUM 3.9 MEQ/L (3.5-5.1)
[2016-08-03] MEDS: ACETYLCYSTEINE 20% 4 ML VIAL (200MG/ML) PO SCH ×2 (08:51→21:00)
[2016-08-03] MEDS: VANCOMYCIN HCL 1,000 MG, VIAL MATE ADAPTER 1 EACH in D5W 250 ML IV SCH (08:52)
[2016-08-03] MEDS: DOCUSATE SODIUM 100 MG CAP PO SCH ×2 (08:53→21:00)
[2016-08-03] MEDS: ATENOLOL 50 MG TAB PO SCH (08:53)
[2016-08-03] MEDS: HALOPERIDOL 5 MG TAB PO SCH (08:53)
[2016-08-03] MEDS: CLOPIDOGREL 75 MG TAB PO SCH (08:53)
[2016-08-03] MEDS: LEVEMIR (INSULIN DETEMIR) 1 UNITS/0.01ML SC SCH ×2 (08:53→21:00)
[2016-08-03] MEDS: ZIPRASIDONE 80 MG CAP (GEODON) PO SCH ×2 (08:54→21:00)
[2016-08-03] MEDS ORDERED: fentaNYL 100 MCG/2 ML INJECTION (J3010) As Ordered ONE (09:24)
[2016-08-03] MEDS ORDERED: MIDAZOLAM INJ 2 MG/2 ML VIAL (J2250) As Ordered ONE (09:25)
[2016-08-03] MEDS ORDERED: ISOVUE-300 61% 50ML VIAL (Q9967) As Ordered ONE (09:25)
[2016-08-03] MEDS ORDERED: HEPARIN 1,000 UNITS/ML 10ML VIAL (FOR RADIOLOGY& DIALYSIS ONLY) As Ordered ONE (09:25)
[2016-08-03] MEDS ORDERED: PROTAMINE SULF INJ 50 MG/5 ML VIAL (J2720) As Ordered ONE (10:10)
[2016-08-03] MEDS ORDERED: LIDOCAINE 2% MDV 20 ML VIAL As Ordered ONE (10:16)
[2016-08-03] MEDS ORDERED: DEXTROSE 50% 50 ML SYRINGE IV PRN (14:45)
[2016-08-03] MEDS ORDERED: GLUCOSE 4 GM CHEW TABLET PO PRN (14:45)
[2016-08-03] MEDS ORDERED: GLUCAGON FOR INJ 1 MG VIAL (J1610) SC PRN (14:45)
--- NOTE | 2016-08-03 15:45 | IPN ---
DATE: 08/03/2016 Mr. Cisneros seems to be in a good mood today. He denies any nausea, vomiting, diarrhea, abdominal pain, fever or chills. He has been afebrile for the past 48 hours. Temperature is 98.4, pulse 73, respirations 14, blood pressure 150/73, oxygen saturation 94% on room air. HEART: Normal S1, S2, distant. LUNGS: Clear. No wheezes, rales, or rhonchi. ABDOMEN: Morbidly obese, soft, nontender. EXTREMITIES: +1 edema of the left side, right above-knee amputation (AKA) stump well-healed. Left foot has a fifth toe amputation. Around the site of the amputation, there is an area of necrosis, dry, about 2 cm in width. There is also erythema extending from the fifth metatarsal across the plantar aspect of the foot all the way to the medial aspect of the foot with tenderness. This has been marked with a purple marker for Dr. Crater to see. I had not seen the wound before and that is a concern. He has very diminished pulses. LABORATORY DATA: White count is 13.8, down from 17, hemoglobin 9.6, hematocrit 29.7, platelets 294. Sodium 142, potassium 3.9, chloride 109, bicarbonate 27, BUN 27, creatinine 2.06, glucose 86, calcium 7.8, magnesium 2.1, CRP 14.4. Vancomycin trough is 11.2. Wound culture had Staphylococcus epidermidis, Group C Streptococcus and Enterobacter, that is from the superficial wound. The wound intraoperatively has group C Streptococcus and Staphylococcus aureus. Blood cultures are no growth. Susceptibilities are still pending. MEDICATIONS: The patient is on IV vancomycin. I would not worry about the Enterobacter, that was only few and on a superficial culture. IMPRESSION: 1. Acute gangrenous osteomyelitis of the left toe, status post amputation with secondary cellulitis. Most likely related to group C Streptococcus and Staphylococcus aureus, on IV vancomycin. 2. Peripheral vascular disease with necrosis around the wound. There is definite concern about vascularization of that leg. There is some extension of the redness as well. Dr. Carter will be seeing the wound tonight. 3. Insulin-dependent diabetes. Glucose has been ranging between 82 and 181. 4. Chronic kidney disease, stable. PLAN: Continue IV vancomycin. Antibiotics will depend on susceptibility of Staphylococcus aureus. If methicillin-sensitive Staphylococcus aureus (MSSA), the patient would be switched to cefazolin. If methicillin-resistant Staphylococcus aureus (MRSA), we will continue with vancomycin.
--- NOTE | 2016-08-03 17:24 | IPN ---
DATE: 08/03/2016 Patient seen and examined at bedside. He had his angio procedure done earlier today. States that he is feeling okay. States that his foot is feeling "more normal". Denies nausea, vomiting, fevers or chills. Vitals are reviewed. Patient has been afebrile. Current temperature is 98.4. Labs were reviewed. White blood cell count is 13.8 down from 14.3. CRP is 14.4 down from 15.6 yesterday. Culture results are reviewed. Group C strep and staphylococcus aureus cultures of the staphylococcus are pending. Pathology reviewed. There is osteomyelitis noted in the proximal phalanx resection margin appears viable without inflammatory changes. Lower extremity examination, there is some improvement along the erythema to the plantar aspect of the foot as well as the dorsal aspect of the foot. The wound itself is free of purulent or necrotic tissue. There are ischemic changes at the periphery of the wound with some tried gangrenous changes more so on the plantar portion of the wound. Metatarsal head is noted within the wound. This appears clean, presently. ASSESSMENT: 65-year-old male status-post left 5th toe amputation with cellulitis and peripheral vascular disease. PLAN: Treatment discussed with Dr. Gaona, antibiotics per her suggestions. Appreciate recommendations. Do not feel that the 5th metatarsal bone presently is infected. He is having some worse ischemic changes which is likely due to his underlying vascular disease compounded with local infection. He did have angiogram today. Await report from Dr. Jeffers. Patient will likely require some form of vascularization if indicated per angio or hyperbaric oxygen treatments. Continue current wound care. Cleanse wound with Vashe dressing. Continue saline wet-to-dry twice daily. Will continue to follow.
[2016-08-03] MEDS: HumaLOG INSULIN (NovoLOG) PER UNIT SC SCH ×2 (17:30→21:00)
[2016-08-03] MEDS: BENZTROPINE 0.5 MG TAB PO SCH (17:42)
[2016-08-03] MEDS: WARFARIN SOD 3 MG TAB PO SCH (17:42)
--- NOTE | 2016-08-03 18:20 | IPN ---
DATE: 08/03/2016 SUBJECTIVE: Mr. Cisneros is a 65-year-old male who was seen and examined at bedside. The patient denies chest pain, orthopnea, or paroxysmal nocturnal dyspnea (PND). The patient also denies nausea, vomiting, diarrhea, or constipation. The patient was sent to angiography as well as peripherally inserted central catheter (PICC) line which were successful. However, before sending the patient for angiography, we have started the patient on IV fluid. The patient also received Mucomyst 20%. We will continue the patient on this dosage at this time. The patient denies chest pain, orthopnea, or PND. OBJECTIVE: VITAL SIGNS: Temperature 98.4, pulse 73, respiratory rate 14, blood pressure 150/73, pulse oximetry 94% on room air. Total intake from yesterday about 1999. GENERAL APPEARANCE: The patient was sitting in the chair and in no acute distress. The patient was awake, alert, and oriented to time, place, and person. HEENT: Normocephalic, atraumatic. Pupils are equal and reactive to light. Oral mucosa is moist. NECK: Soft, supple. No lymphadenopathy. No thyromegaly. HEART: Regular rate and rhythm. Normal S1, S2. The patient has a systolic murmur. RESPIRATORY: The patient has good air movement bilaterally. No wheezes, rales, or rhonchi. ABDOMEN: Obese, soft, nontender. Positive bowel sounds heard in all four quadrants. EXTREMITIES: The patient has left fifth toe amputation and surgical bandage is clean. No drainage was noticed. The patient also has right [id number] amputation.around the amputation there is an area of necrosis however no drainage was noticed. pulse is diminished in the left lower extremity. ASSESSMENT AND PLAN: 1. Foot ulcer and cellulitis. Dr. Gaona has visited the patient and based on Dr. Gaona's note, this is most likely cellulitis from group B Streptococcus, less likely Staphylococcus epidermis. The patient was on vancomycin and cefepime. However, Dr. Gaona stopped the cefepime and continued with vancomycin until the wound culture comes back. Dr. Gaona suspects that the patient may only require to be on ceftriaxone 2 grams daily after checking the wound culture. The patient's MRI on admission shows soft tissue. However, no evidence of osteomyelitis was noticed. We have consulted vascular surgeon and we performed angiogram. However, the result is pending at this time. We will continue to monitor the patient for any abnormal symptoms. 2. History of methicillin-resistant Staphylococcus aureus (MRSA). At this time, the patient is on vancomycin. Dr. Gaona has stopped the cefepime. We will continue to monitor the patient for any abnormal symptoms. Also, we are waiting for culture from the wound. 3. History of deep vein thrombosis (DVT). The patient is on Coumadin. The patient's international normalized ratio (INR) is in the therapeutic level. 4. Type 2 diabetes. The patient has diabetic neuropathy. At this point, we will continue the patient on Levemir 35 mg every morning, before meals, and 30 units at bedtime. Also, the patient is on sliding scale. 5. Hypertension. At this time, the patient is on atenolol. The patient's blood pressure is stable. 6. Coronary artery disease. The patient is on Plavix, atenolol, and Coumadin. 7. Bilateral cataracts. This is a chronic issue. Outpatient followup. 8. Peripheral neuropathy. The patient is stable at this time. The patient can followup as outpatient. 9. Schizoaffective disorder. The patient is on Haldol and Geodon. 10. DVT prophylaxis. The patient is on Coumadin with therapeutic INR. My preceptor for this patient encounter was Dr. Fanny Gonzalez. The preceptor was physically present in the building during the encounter and was fully available as needed. All aspects of the patient interview, examination, medical decision making process, and medical care plan development were reviewed and approved by the preceptor. The preceptor is aware and concurs with the plan as stated in the body of this note and will attest to such by his/her co-signature. FLORENTINO
[2016-08-03] MEDS: SIMVASTATIN 20 MG TAB PO SCH (21:00)
[2016-08-04 02:00] VITALS: BP 150/74
[2016-08-04] MEDS: LR 1,000 ML IV SCH ×2 (04:30→18:04)
[2016-08-04 06:00] VITALS: BP 136/65
[2016-08-04] MEDS ORDERED: ceFAZolin SOD 1 GM in D5W MINI-BAG PLUS 50 ML IV SCH (06:00)
[2016-08-04 06:05] LABS: INR 2.81
[2016-08-04] MEDS: PERCOCET 5MG/325MG TAB PO PRN ×2 (06:22→22:39)
[2016-08-04 06:26] LABS: MEAN CORPUSCULAR HEMOGLOBIN 30.4 pg (27.0-33.0); MEAN CORPUSCULAR HGB CONC 32.4 g/dl (32.0-36.5); MEAN CORPUSCULAR VOLUME 93.9 fl (80.0-96.0); RED CELL DISTRIBUTION WIDTH 13.6 % (11.5-14.5); WHITE BLOOD COUNT 12.3 K/mm3 (4.0-10.0)
[2016-08-04 06:33] LABS: CALCIUM LEVEL 7.3 MG/DL (8.8-10.2); CREATININE FOR GFR 2.12 MG/DL (0.70-1.30); GLOMERULAR FILTRATION RATE 33.5 (>49); POTASSIUM SERUM 4.4 MEQ/L (3.5-5.1)
[2016-08-04] MEDS ORDERED: SODIUM CHLORIDE 0.9% INJ 10 ML SYR IV PRN (08:00)
[2016-08-04] MEDS: CLOPIDOGREL 75 MG TAB PO SCH (08:14)
[2016-08-04] MEDS: ATENOLOL 50 MG TAB PO SCH (08:14)
[2016-08-04] MEDS: DOCUSATE SODIUM 100 MG CAP PO SCH ×2 (08:14→21:30)
[2016-08-04] MEDS: LEVEMIR (INSULIN DETEMIR) 1 UNITS/0.01ML SC SCH ×2 (08:14→21:00)
[2016-08-04] MEDS: ZIPRASIDONE 80 MG CAP (GEODON) PO SCH ×2 (08:14→21:30)
[2016-08-04] MEDS: HALOPERIDOL 5 MG TAB PO SCH (08:14)
[2016-08-04] MEDS: HumaLOG INSULIN (NovoLOG) PER UNIT SC SCH ×4 (08:15→21:00)
--- NOTE | 2016-08-04 09:11 | REP ---
Procedure: PICC line insertion with Parisa-Tc The procedure was performed under the direct supervision of Dr. Da Silva. The risks and benefits of the procedure were explained to the patient and informed consent was obtained. The right basilic vein was localized using ultrasound guidance. The skin was prepped and draped in a sterile fashion. 2% lidocaine was used as a local anesthetic. Using ultrasound guidance the basilic vein was cannulated and a 0.018 guidewire was inserted and advanced to the SVC using fluoroscopic guidance. The needle was removed and a 4.5 Palestinian dilator and peel-away sheath was inserted over the guide wire. A 4.5 Palestinian single lumen catheter was cut to length of 44 cm. The dilator was removed and the catheter was inserted over the guide wire with the tip ending in the SVC. The peel-away sheath was removed and the catheter was flushed with heparinized saline as per Hospital protocol. The catheter was affixed to the skin and a sterile dressing was applied. The the patient tolerated the procedure well and there were no immediate complications. 0.3 minutes of fluoro time was utilized for this procedure. Reviewed by HARMEET Alaniz 08/03/2016 07:06 PSigned by Sanjay Da Silva MD 08/04/2016 09:02 A
[2016-08-04] MEDS: AMPICILLIN SOD/SULBACTAM SOD 1.5 GM in D5W MINI-BAG PLUS 50 ML IV SCH ×3 (11:31→22:39)
--- NOTE | 2016-08-04 14:07 | IPN ---
DATE OF SERVICE: 08/04/2016 The patient is seen and examined at bedside. Denies overnight complaints. He states not really having much pain in his foot. Vital signs are examined. Maximum temperature (Tmax) is 99.1, current temperature is 97.3. I have reviewed white blood cell count, improved to 12.3 from 13.8. CRP is 11 down from 14.4. Culture from the operating room (OR) is growing group C Streptococcus and Staphylococcus aureus methicillin sensitive. Anaerobic cultures are pending. LOWER EXTREMITY EXAMINATION: There is somewhat more gangrenous changes to the periphery of the wound. Wound base is inspected, noted to be free of purulence. No malodor. No necrotic tissue. Less sensitivity to foot with palpation. ASSESSMENT: A 65-year-old male, status post left 5th toe amputation, with cellulitis, peripheral vascular disease. PLAN: Will allow gangrenous changes to allow to demarcate. At this time, there is no local intervention to improve this. Must allow blood to flow to improve. Await results from the angiogram. The patient will potentially require further vascular intervention or hyperbaric oxygen as indicated. Presently, continue current local wound care, current antibiotics per Dr. Gaona. Will follow.
--- NOTE | 2016-08-04 14:36 | IPN ---
DATE OF SERVICE: 08/04/2016 SUBJECTIVE: Mr. Cisneros is a 65-year-old male who was seen and examined at the bedside. The patient denies chest pain, orthopnea, or paroxysmal nocturnal dyspnea (PND). The patient also denies nausea, vomiting, diarrhea, or constipation. The patient was seen by Dr. Gaona yesterday. Also, today, I spoke with Dr. Jeffers (vascular surgeon) regarding the result of the angiogram of the left lower extremity. OBJECTIVE: VITAL SIGNS: Temperature 97.3, pulse 68, respiratory rate 18, blood pressure 136/65, pulse oximetry 98% on room air. Total intake from yesterday 3105, total output 2725 mL. GENERAL APPEARANCE: The patient was lying in bed, in no acute distress. The patient was awake, alert, and oriented to time, place, and person. HEENT: Normocephalic, atraumatic. Pupils are equal and reactive to light. Oral mucosa is moist. NECK: Soft, supple. No lymphadenopathy. No thyromegaly. HEART: Regular rate and rhythm. Normal S1, S2. LUNGS: Clear breath sounds bilaterally. Good air movement. No rales or rhonchi. ABDOMEN: Morbidly obese, soft, nontender. Positive bowel sounds in all quadrants. EXTREMITIES: The patient has diminished pulse on the left lower extremity. The patient has necrosis tissues around the amputation area that has been increased. Amputation area on the left foot. There is also mild clear discharge from the amputation area. LABORATORY DATA: White blood cells 12.3, red blood cells 3.06, hemoglobin 9.3, hematocrit 28.8, MCV 93.9, MCH 30.4, MCHC 32.4, RDW 13.6, platelet count 253. PT 29.6, INR 2.81. Sodium 142, potassium 4.4, chloride 110, carbon dioxide 27, anion gap 5, BUN 29, creatinine 2.12, glomerular filtration rate 33.5, fasting glucose 151, calcium 7.3, magnesium 2, C-reactive protein 11. Toe wound culture shows Staphylococcus epidermitis, Staphylococcus group C, Enterobacter amnigenus 2. Foot culture shows Streptococcus group C, Staphylococcus aureus. ASSESSMENT AND PLAN: 1. Acute gangrenous osteomyelitis of the left toe. The patient is status post amputation with the secondary cellulitis. I have spoken with Dr. Gaona. Appreciate Dr. Gaona's recommendations. Based on the result of the anaerobes infection, the patient has been started on Unasyn. 2. Peripheral vascular disease with a necrosis. The patient has necrosis around the wound area. I have spoken with Dr. Jeffers, vascular surgeon, who expressed that the patient has 99% blockage of superficial and profunda femoral artery. Dr. Jeffers recommended femoral endarterectomy and has already spoken with the patient, and the patient accept the procedure, and Dr. Jeffers at this time is in the process of scheduling the surgery for this week. Also, the patient is on warfarin. 3. Insulin-dependent diabetes. The patient is on Levemir 35 in the morning and 30 units at bedtime. The patient also has a sliding scale. 4. Hypertension. The patient is on atenolol. 5. Coronary artery disease. The patient is on Plavix, atenolol, and Coumadin. 6. Bilateral cataracts. This is a chronic issue. The patient can be continued as an outpatient. 7. Peripheral neuropathy. The patient is stable at this time. 8. Schizoaffective disorder. The patient is on Haldol and Geodon. 9. Deep venous thrombosis (DVT) prophylaxis. The patient is on Coumadin. Therapeutic. My preceptor for this patient encounter was Dr. Fanny Gonzalez. The preceptor was physically present in the building during the encounter and was fully available as needed. All aspects of the patient interview, examination, medical decision making process, and medical care plan development were reviewed and approved by the preceptor. The preceptor is aware and concurs with the plan as stated in the body of this note and will attest to such by his/her co-signature. FLORENTINO
[2016-08-04] MEDS: WARFARIN SOD 3 MG TAB PO SCH (16:14)
[2016-08-04] MEDS: BENZTROPINE 0.5 MG TAB PO SCH (18:03)
[2016-08-04] MEDS: SODIUM CHLORIDE 0.9% INJ 10 ML SYR IV SCH (18:04)
[2016-08-04] MEDS: SIMVASTATIN 20 MG TAB PO SCH (21:30)
[2016-08-04 22:00] VITALS: BP 168/77
[2016-08-04] MEDS ORDERED: CALCIUM CARBONATE 500 MG CHEW U/D PO ONE (22:30)
[2016-08-05] MEDS: PERCOCET 5MG/325MG TAB PO PRN ×3 (03:23→21:19)
[2016-08-05] MEDS: AMPICILLIN SOD/SULBACTAM SOD 1.5 GM in D5W MINI-BAG PLUS 50 ML IV SCH ×4 (04:11→22:27)
[2016-08-05] MEDS: SODIUM CHLORIDE 0.9% INJ 10 ML SYR IV SCH ×2 (05:23→17:57)
[2016-08-05 05:47] LABS: MEAN CORPUSCULAR HEMOGLOBIN 30.6 pg (27.0-33.0); MEAN CORPUSCULAR HGB CONC 33.5 g/dl (32.0-36.5); MEAN CORPUSCULAR VOLUME 91.4 fl (80.0-96.0); RED CELL DISTRIBUTION WIDTH 13.9 % (11.5-14.5); WHITE BLOOD COUNT 12.4 K/mm3 (4.0-10.0)
[2016-08-05 05:50] LABS: INR 2.83
[2016-08-05 06:00] VITALS: BP 132/61
[2016-08-05 06:12] LABS: CALCIUM LEVEL 7.5 MG/DL (8.8-10.2); CREATININE FOR GFR 1.88 MG/DL (0.70-1.30); GLOMERULAR FILTRATION RATE 38.4 (>49); MAGNESIUM LEVEL 1.9 MG/DL (1.8-2.4); POTASSIUM SERUM 4.1 MEQ/L (3.5-5.1)
[2016-08-05] MEDS: LR 1,000 ML IV SCH ×2 (07:10→20:30)
[2016-08-05] MEDS: LEVEMIR (INSULIN DETEMIR) 1 UNITS/0.01ML SC SCH ×2 (08:47→21:20)
[2016-08-05] MEDS: ATENOLOL 50 MG TAB PO SCH (08:48)
[2016-08-05] MEDS: CLOPIDOGREL 75 MG TAB PO SCH (08:48)
[2016-08-05] MEDS: ZIPRASIDONE 80 MG CAP (GEODON) PO SCH ×2 (08:48→21:18)
[2016-08-05] MEDS: DOCUSATE SODIUM 100 MG CAP PO SCH ×2 (08:49→21:18)
[2016-08-05] MEDS: HumaLOG INSULIN (NovoLOG) PER UNIT SC SCH ×4 (08:49→21:00)
[2016-08-05] MEDS: HALOPERIDOL 5 MG TAB PO SCH (08:49)
--- NOTE | 2016-08-05 14:51 | IPN ---
DATE: 08/05/2016 SUBJECTIVE: Mr. Cisneros is a 65-year-old male who was seen and examined at the bedside. The patient denies chest pain, orthopnea, or paroxysmal nocturnal dyspnea (PND). The patient also denies nausea, vomiting, diarrhea, or constipation. The patient was seen by Dr. Gaona and has been seen by Dr. Jeffers (vascular surgeon). OBJECTIVE: VITAL SIGNS: Temperature 98.5, pulse 71, respiratory rate 19, blood pressure 132/61, pulse oximetry 95% on room air. Total intake from yesterday 2064, total output 1300 mL. GENERAL APPEARANCE: The patient was lying in bed, in no acute distress. The patient was awake, alert, and oriented to time, place, and person. HEENT: Normocephalic, atraumatic. Pupils were equally reactive to light. Oral mucosa is moist. NECK: Soft, supple. No lymphadenopathy. No thyromegaly. HEART: Regular rate and rhythm. Normal S1, S2. LUNGS: Clear breath sounds bilaterally. Good air movement. ABDOMEN: Soft, nontender. Positive bowel sounds in all quadrants. EXTREMITIES: The patient has diminished pulse on the left lower extremity. Patient also has necrosis around the amputation area on the left foot. The patient still has mild clear discharge from the amputation site, however, no bleeding or pus discharge was noticed. LABORATORY DATA: White blood cells 12.4, red blood cells 2.91, hemoglobin 8.9, hematocrit 26.6, MCV 91.4, MCH 30.6, MCHC 33.5, RDW 13.9, platelet count 251. Sodium 143, potassium 4.1, chloride 110, carbon dioxide 26, anion gap 7, BUN 25, creatinine 1.88, glomerular filtration rate 38.4, fasting glucose 103, calcium 7.5, magnesium 1.9, C-reactive protein 8.95. ASSESSMENT AND PLAN: 1. Acute gangrenous osteomyelitis of the left foot. The patient is status post amputation with secondary cellulitis. The patient was started on Unasyn. We will continue monitoring the patient for any abnormal symptoms. 2. Peripheral vascular disease with necrosis. Dr. Jeffers, vascular surgeon, has seen the patient who will perform femoral endarterectomy. However, the date of surgery is undetermined and Dr. Jeffers is in the process of scheduling he surgery date. 3. Insulin-dependent diabetes. The patient is on Levemir 35 in the morning and 30 units at bedtime. The patient also has a sliding scale. 4. Hypertension. The patient is on atenolol. 5. Coronary artery disease. The patient is on Plavix, atenolol, and Coumadin. 6. Bilateral cataracts. This is a chronic issue. 7. Peripheral neuropathy. 8. Schizoaffective disorder. Patient is on Haldol and Geodon. 9. Deep venous thrombosis (DVT) prophylaxis. The patient is on Coumadin. 10. History of DVT. Patient on Coumadin and patient is therapeutic. My preceptor for this patient encounter was Dr. Fanny Gonzalez. The preceptor was physically present in the building during the encounter and was fully available. As needed, all aspects of the patient interview, examination, medical decision making process, and medical care plan development were reviewed and approved by the preceptor. The preceptor is aware and concurs with the plan as stated in the body of this note and will attest to such by his/her cosignature.
[2016-08-05] MEDS: WARFARIN SOD 3 MG TAB PO SCH (17:08)
[2016-08-05] MEDS: BENZTROPINE 0.5 MG TAB PO SCH (17:08)
[2016-08-05] MEDS: CALCIUM CARBONATE 500 MG CHEW U/D PO PRN (17:49)
[2016-08-05] MEDS: SIMVASTATIN 20 MG TAB PO SCH (21:18)
[2016-08-05 22:00] VITALS: BP 145/64
[2016-08-06] MEDS: AMPICILLIN SOD/SULBACTAM SOD 1.5 GM in D5W MINI-BAG PLUS 50 ML IV SCH ×2 (03:57→11:18)
[2016-08-06] MEDS: PERCOCET 5MG/325MG TAB PO PRN ×3 (03:57→20:03)
[2016-08-06] MEDS: SODIUM CHLORIDE 0.9% INJ 10 ML SYR IV SCH ×2 (05:23→17:29)
[2016-08-06 05:31] LABS: MEAN CORPUSCULAR HEMOGLOBIN 30.2 pg (27.0-33.0); MEAN CORPUSCULAR HGB CONC 32.4 g/dl (32.0-36.5); MEAN CORPUSCULAR VOLUME 93.3 fl (80.0-96.0); RED CELL DISTRIBUTION WIDTH 13.9 % (11.5-14.5); WHITE BLOOD COUNT 13.1 K/mm3 (4.0-10.0)
[2016-08-06 06:00] VITALS: BP 143/64
[2016-08-06 06:00] LABS: CALCIUM LEVEL 7.8 MG/DL (8.8-10.2); CREATININE FOR GFR 1.8 MG/DL (0.70-1.30); GLOMERULAR FILTRATION RATE 40.4 (>49); MAGNESIUM LEVEL 1.7 MG/DL (1.8-2.4); POTASSIUM SERUM 4.1 MEQ/L (3.5-5.1)
[2016-08-06 06:04] LABS: INR 2.61
[2016-08-06] MEDS: LEVEMIR (INSULIN DETEMIR) 1 UNITS/0.01ML SC SCH ×2 (08:07→21:18)
[2016-08-06] MEDS: HumaLOG INSULIN (NovoLOG) PER UNIT SC SCH ×4 (08:07→21:47)
[2016-08-06] MEDS: DOCUSATE SODIUM 100 MG CAP PO SCH ×2 (08:08→21:18)
[2016-08-06] MEDS: CLOPIDOGREL 75 MG TAB PO SCH (08:08)
[2016-08-06] MEDS: ZIPRASIDONE 80 MG CAP (GEODON) PO SCH ×2 (08:08→21:18)
[2016-08-06] MEDS: ATENOLOL 50 MG TAB PO SCH (08:08)
[2016-08-06] MEDS: HALOPERIDOL 5 MG TAB PO SCH (08:08)
[2016-08-06] MEDS ORDERED: MIRALAX *UNIT DOSE* 17GM PACKET PO PRN (12:45)
[2016-08-06] MEDS ORDERED: SENNA 8.6 MG TAB (SENOKOT) PO PRN (12:45)
--- NOTE | 2016-08-06 14:30 | IPN ---
DATE: 08/06/2016 SUBJECTIVE: Mr. Cisneros is a 66-year-old male who was seen and examined at the bedside. The patient denies chest pain, orthopnea, or paroxysmal nocturnal dyspnea (PND). The patient also denies nausea, vomiting, diarrhea, or constipation. OBJECTIVE: VITAL SIGNS: Temperature 98, pulse 61, respiratory rate 18, blood pressure 143/64, pulse oximetry 91% on room air. Total intake from yesterday 1380, total output 1550 mL. GENERAL APPEARANCE: The patient was lying in bed, in no acute distress. The patient was awake, alert, and oriented to time, place, and person. HEENT: Normocephalic, atraumatic. Pupils were equally reactive to light. Oral mucosa is moist. NECK: Soft, supple. No lymphadenopathy. No thyromegaly. HEART: Regular rate and rhythm. Normal S1, S2. LUNGS: Clear breath sounds bilaterally. Good air movement. ABDOMEN: Obese. Soft, nontender. Positive bowel sounds in all quadrants. EXTREMITIES: The patient has diminished pulse on the left lower extremity. Also patient has necrosis tissue around the amputation area on the left foot. The wound bandage was clean and no drainage or bleeding was noted. LABORATORY DATA: White blood cells 13.1, red blood cells 2.76, hemoglobin 8.3, hematocrit 25.7, MCV 93.3, MCH 30.2, MCHC 32.4, RDW 13.9, platelet count 261. Sodium 141, potassium 4.1, chloride 108, carbon dioxide 28, anion gap 5, BUN 25, creatinine 1.8, glomerular filtration rate 40.4, fasting glucose 125, calcium 7.8, magnesium 1.8, C-reactive protein 7.38. ASSESSMENT AND PLAN: 1. Acute gangrenous osteomyelitis of the left foot. The patient is status post amputation with secondary cellulitis. Erythema has decreased. The patient is on Unasyn. The patient is following with infectious disease (Dr. Gaona). 2. Peripheral vascular disease with necrosis. I have spoken to Dr. Jeffers who expressed that the patient has been scheduled for Tuesday for femoral endarterectomy. If the date changes or if the procedure cannot be scheduled, the patient will be sent to [facility]. 3. Insulin-dependent diabetes. The patient is on Levemir 35 in the morning and 30 units at bedtime. The patient is on a sliding scale. 4. Hypertension. The patient is on atenolol. 5. Coronary artery disease. The patient is on Plavix, atenolol, and Coumadin. 6. Bilateral cataracts. This is a chronic issue. 7. Peripheral neuropathy. This is a chronic issue. At this time the patient is stable. 8. Schizoaffective disorder. Patient is on Haldol and Geodon. 9. Deep venous thrombosis (DVT) prophylaxis. The patient is on Coumadin and the level is therapeutic. 10. History of deep vein thrombosis (DVT). Patient is on Coumadin. 11. Chronic kidney disease. The patient is at baseline. My preceptor for this patient encounter was Dr. Gonzalez. The preceptor was physically present in the building during the encounter and was fully available. As needed, all aspects of the patient interview, examination, medical decision making process, and medical care plan development were reviewed and approved by the preceptor. The preceptor is aware and concurs with the plan as stated in the body of this note and will attest to such by his/her cosignature.
--- NOTE | 2016-08-06 16:02 | IPN ---
DATE: 08/06/2016 The patient is seen and examined at bedside. Denies overnight complaints. He states a little soreness today in his foot when he steps down on it, otherwise not feeling too bad. Vital signs are reviewed. Patient is afebrile. Maximum temperature (Tmax) is 99.3. LABS: White blood cell count is 13.1 up from 12.4. CRP has been trending down, it is 7.3 down from 8.95. LOWER EXTREMITY EXAMINATION: No further gangrenous changes are noted surrounding the wound. There remains some dysvascular redness surrounding the wound and into plantar arch. Wound itself was inspected. There is no necrosis. There is some cyanotic tissue within the wound but no signs of active purulence of infection. There is no infectious malodor. ASSESSMENT: A 65-year-old male, with cellulitis left foot status post amputation left 5th toe amputation with peripheral vascular disease. PLAN: Per chart review there is plan for an endarterectomy to be performed by Dr. Jeffers at some point next week. Date to be determined. Continue local wound care presently will allow area of gangrene to demarcate. I do not recommend debridement until after vascular intervention is performed until good tissue demarcation is noted. Continue antibiotics per infectious disease. Will follow.
--- NOTE | 2016-08-06 16:25 | IPN ---
DATE: 08/06/2016 Mr. Cisneros is doing very well. He is in a good mood. He just complains of some pain at the site of the angiogram and a big bruise. He has had no nausea, vomiting, or diarrhea. No fever or chills. No chest pain. He has been afebrile for the past 5 days. He is scheduled to have a femoral endarterectomy by Dr. Jeffers sometime next week, depending on the operating room (OR) schedule and available equipment. PHYSICAL EXAMINATION: Left thigh has a large purplish ecchymosis in the groin area, measuring over 20 cm, mildly tender. Left 5th toe amputation with surrounding necrosis. Temperature 98, pulse 61, respirations 18, pressure 143/64, oxygen sat 91% on room air. LABORATORY DATA: White count 13.1, hemoglobin 8.3, hematocrit 25.7, platelets 261. Sodium of 141, potassium 4.1, chloride 108, bicarbonate 28, BUN 25, creatinine 1.8, glucose 125, CRP 7.38, down from 15.6. Wound culture positive for methicillin-sensitive Staphylococcus aureus (MSSA), group C streptococcus, and Bacteroides fragilis. MEDICATIONS: Unasyn 1.5 grams every 6 hours. IMPRESSION: 1. Gangrenous osteomyelitis of the left 5th toe status post amputation with necrosis from severe PVD. Polymicrobial infection with methicillin-sensitive Staphylococcus aureus (MSSA), group B streptococcus and Bacteroides fragilis. 2. Peripheral vascular disease with poor circulation to that lower extremity. Will be undergoing endarterectomy next week. PLAN: Increase dose of Unasyn to 3 grams every 6 hour. The patient will need to 6 weeks of IV antibiotics. Will continue to followup. [facility]
[2016-08-06] MEDS: AMPICILLIN SOD/SULBACTAM SOD 3 GM in D5W MINI-BAG PLUS 100 ML IV SCH ×2 (17:28→23:28)
[2016-08-06] MEDS: BENZTROPINE 0.5 MG TAB PO SCH (17:29)
[2016-08-06] MEDS: WARFARIN SOD 3 MG TAB PO SCH (17:29)
[2016-08-06] MEDS: LR 1,000 ML IV SCH ×2 (17:30→23:10)
[2016-08-06] MEDS: CALCIUM CARBONATE 500 MG CHEW U/D PO PRN (20:00)
[2016-08-06] MEDS: SIMVASTATIN 20 MG TAB PO SCH (21:18)
[2016-08-06] MEDS: NYSTATIN 100,000 UNITS/GM TOPICAL PWD 15 GM TOP SCH (21:19)
[2016-08-06 22:00] VITALS: BP 152/68
[2016-08-07 02:00] VITALS: BP 152/68
[2016-08-07] MEDS: SODIUM CHLORIDE 0.9% INJ 10 ML SYR IV SCH ×2 (04:54→17:54)
[2016-08-07] MEDS: AMPICILLIN SOD/SULBACTAM SOD 3 GM in D5W MINI-BAG PLUS 100 ML IV SCH ×4 (04:54→22:52)
[2016-08-07] MEDS: PERCOCET 5MG/325MG TAB PO PRN ×3 (05:04→21:18)
[2016-08-07 05:16] LABS: MEAN CORPUSCULAR HEMOGLOBIN 30.5 pg (27.0-33.0); MEAN CORPUSCULAR HGB CONC 32.6 g/dl (32.0-36.5); MEAN CORPUSCULAR VOLUME 93.5 fl (80.0-96.0); WHITE BLOOD COUNT 14.5 K/mm3 (4.0-10.0)
[2016-08-07 05:38] LABS: CALCIUM LEVEL 8.3 MG/DL (8.8-10.2); CREATININE FOR GFR 1.63 MG/DL (0.70-1.30); GLOMERULAR FILTRATION RATE 45.3 (>49); MAGNESIUM LEVEL 1.7 MG/DL (1.8-2.4); POTASSIUM SERUM 4.1 MEQ/L (3.5-5.1)
[2016-08-07 06:00] VITALS: BP 158/68
[2016-08-07] MEDS: HumaLOG INSULIN (NovoLOG) PER UNIT SC SCH ×4 (08:17→21:49)
[2016-08-07 08:49] LABS: INR 2.33
[2016-08-07] MEDS: LEVEMIR (INSULIN DETEMIR) 1 UNITS/0.01ML SC SCH ×2 (11:14→21:18)
[2016-08-07] MEDS: ZIPRASIDONE 80 MG CAP (GEODON) PO SCH ×2 (11:15→21:19)
[2016-08-07] MEDS: CLOPIDOGREL 75 MG TAB PO SCH (11:15)
[2016-08-07] MEDS: DOCUSATE SODIUM 100 MG CAP PO SCH ×2 (11:16→21:19)
[2016-08-07] MEDS: ATENOLOL 50 MG TAB PO SCH (11:16)
[2016-08-07] MEDS: HALOPERIDOL 5 MG TAB PO SCH (11:16)
[2016-08-07] MEDS: NYSTATIN 100,000 UNITS/GM TOPICAL PWD 15 GM TOP SCH ×2 (11:18→21:19)
[2016-08-07 11:33] VITALS: BP 172/68
[2016-08-07] MEDS: LR 1,000 ML IV SCH (12:31)
[2016-08-07] MEDS: BENZTROPINE 0.5 MG TAB PO SCH (17:52)
[2016-08-07] MEDS: WARFARIN SOD 3 MG TAB PO SCH (17:52)
[2016-08-07] MEDS: SIMVASTATIN 20 MG TAB PO SCH (21:19)
[2016-08-07 22:00] VITALS: BP 167/78
[2016-08-08] MEDS: LR 1,000 ML IV SCH (01:48)
[2016-08-08] MEDS: PERCOCET 5MG/325MG TAB PO PRN ×2 (02:47→08:26)
--- NOTE | 2016-08-08 04:10 | IPN ---
DATE OF SERVICE: 08/06/2016 SUBJECTIVE: Mr. Cisneros is a 66-year-old male who was seen and examined at the bedside. The patient denies chest pain, orthopnea, or paroxysmal nocturnal dyspnea (PND). The patient also denies nausea, vomiting, diarrhea, or constipation. OBJECTIVE: VITAL SIGNS: Temperature 97.4, pulse 68, respiratory rate 18, blood pressure 158/68, pulse oximetry 95 on room air. Total intake from yesterday 1260, total output 1100. GENERAL APPEARANCE: Patient was lying in bed, in no acute distress. The patient was awake, alert, and oriented to time, place, and person. HEENT: Normocephalic, atraumatic. Pupils were equally reactive to light. Oral mucosa is moist. NECK: Soft, supple. No lymphadenopathy. No thyromegaly. HEART: Regular rate and rhythm. Normal S1, S2. LUNGS: Clear breath sounds bilaterally. Good air movement. ABDOMEN: Soft, obese, nontender to palpation. Positive bowel sounds in all quadrants. EXTREMITIES: The patient has diminished pulse on the left lower extremity; however, patient has normal range of motion of the left lower extremity. Patient has amputated right lower extremity. Patient has necrotic tissue around the amputation area. However, wound dressing was clean and no drainage or bleeding was noticed. LABORATORY DATA: White blood cells 15.5, red blood cells 2.9, hemoglobin 8.8, hematocrit 27.1, MCV 93.5, MCH 30.5, MCHC 32.6, RDW 14, platelet count 268. PT 25.6, INR 2.33. Sodium 142, potassium 4.1, chloride 107, carbon dioxide 29, anion gap 6, BUN 23, creatinine 1.63, glomerular filtration rate 45.3, fasting glucose 122, calcium 8.3, magnesium 1.7, C-reactive protein 6.28. ASSESSMENT AND PLAN: 1. Acute gangrenosum osteomyelitis of the left foot. Based on Dr. Gaona's recommendations, Unasyn has increased to 3 grams every 6 hours. Patient also needs to have 6 weeks of intravenous (IV) antibiotic. 2. Peripheral vascular disease with necrosis. I have spoken to Dr. Jeffers who expressed that we do not have to stop the Coumadin. Patient is scheduled to have the femoral endarterectomy on Tuesday afternoon. Dr. Jeffers mentioned that he will put appropriate orders. 3. Insulin-dependent diabetes. The patient is on Levemir 35 units in the morning and 30 units at bedtime. The patient is on a sliding scale. 4. Hypertension. The patient is on atenolol. 5. Coronary artery disease. The patient is on Plavix, atenolol, and Coumadin. 6. Bilateral cataracts. This is a chronic issue. 7. Peripheral neuropathy. This is a chronic issue. 8. Schizophrenia. Patient is on Haldol and Geodon. 9. Deep venous thrombosis (DVT) prophylaxis. Patient is on Coumadin and international normalized ratio (INR) is in therapeutic level. However, based on Dr. Jeffers's recommendation, we do not have to stop the Coumadin. 10. Chronic kidney disease. Patient is at baseline. My preceptor for this patient encounter was Dr. Fanny Gonzalez. The preceptor was physically present in the building during the encounter and was fully available as needed. All aspects of the patient interview, examination, medical decision making process, and medical care plan development were reviewed and approved by the preceptor. The preceptor is aware and concurs with the plan as stated in the body of this note and will attest to such by his/her co-signature.
[2016-08-08] MEDS: AMPICILLIN SOD/SULBACTAM SOD 3 GM in D5W MINI-BAG PLUS 100 ML IV SCH ×4 (05:18→23:49)
[2016-08-08] MEDS: SODIUM CHLORIDE 0.9% INJ 10 ML SYR IV SCH ×2 (05:18→17:24)
[2016-08-08 05:31] LABS: MEAN CORPUSCULAR HEMOGLOBIN 30.1 pg (27.0-33.0); MEAN CORPUSCULAR HGB CONC 32.9 g/dl (32.0-36.5); MEAN CORPUSCULAR VOLUME 91.3 fl (80.0-96.0); RED CELL DISTRIBUTION WIDTH 14.3 % (11.5-14.5); WHITE BLOOD COUNT 12.2 K/mm3 (4.0-10.0)
[2016-08-08 05:35] LABS: INR 2.54
[2016-08-08 05:54] LABS: CALCIUM LEVEL 8.2 MG/DL (8.8-10.2); CREATININE FOR GFR 1.72 MG/DL (0.70-1.30); GLOMERULAR FILTRATION RATE 42.6 (>49); MAGNESIUM LEVEL 1.7 MG/DL (1.8-2.4); POTASSIUM SERUM 3.9 MEQ/L (3.5-5.1)
[2016-08-08 06:00] VITALS: BP 159/72
[2016-08-08] MEDS: CLOPIDOGREL 75 MG TAB PO SCH (08:24)
[2016-08-08] MEDS: LEVEMIR (INSULIN DETEMIR) 1 UNITS/0.01ML SC SCH ×2 (08:24→22:11)
[2016-08-08] MEDS: HumaLOG INSULIN (NovoLOG) PER UNIT SC SCH ×4 (08:24→21:00)
[2016-08-08] MEDS: HALOPERIDOL 5 MG TAB PO SCH (08:25)
[2016-08-08] MEDS: ATENOLOL 50 MG TAB PO SCH (08:25)
[2016-08-08] MEDS: DOCUSATE SODIUM 100 MG CAP PO SCH ×2 (08:25→22:10)
[2016-08-08] MEDS: ZIPRASIDONE 80 MG CAP (GEODON) PO SCH ×2 (08:25→22:10)
[2016-08-08] MEDS: NYSTATIN 100,000 UNITS/GM TOPICAL PWD 15 GM TOP SCH ×2 (08:26→22:12)
[2016-08-08 14:00] VITALS: BP 192/84
--- NOTE | 2016-08-08 15:18 | IPN ---
DATE: 08/08/2016 SUBJECTIVE: The patient tells me that he feels about the same. He has no complaints and feels no different than he has in previous days. OBJECTIVE: VITAL SIGNS: Temperature 97.8, pulse 52, respiratory rate 18, blood pressure 159/72, oxygen saturation 96% on room air. GENERAL: The patient is an elderly, obese man sitting on the edge of his bed and eating breakfast. He is in no acute distress. HEENT: Cranial nerve II through XII are grossly intact. He has moist mucous membranes. No elevation of central venous pressure. CARDIOVASCULAR EXAM: S1 and S2. RESPIRATORY EXAM: Clear. ABDOMINAL EXAM: Grossly obese. EXTREMITIES: He is status post amputation on the right and on the left he has a dressing that is clean, dry and intact and he is wearing a hard shoe. LABORATORY STUDIES: WBC 12.2, trending down, hemoglobin 8.6, stable, hematocrit 26.2, platelet count 281. Chemistry panel: Sodium 141, potassium 3.9, chloride 104, bicarbonate 29, BUN 24, creatinine 1.7, magnesium 1.7, repleted. Microbiology: Foot culture returned as Group B streptococcus (GBS), Staphylococcus aureus bacteroides. No new imaging. ASSESSMENT AND PLAN: This is a 66-year-old man with gangrenous osteomyelitis of the left lower extremity, status post amputation. PROBLEMS: 1. Gangrenous osteomyelitis. Dr. Gaona and Dr. Jeffers's help is greatly appreciated. Dr. Gaona has made recommendations for antibiotic with Unasyn for 6 weeks, which the patient is currently undertaking. He has a peripherally inserted central catheter (PICC) line in place. Dr. Jeffers is planning for a potential endarterectomy tomorrow. Dr. Jeffers will take care of the orders if the patient's Coumadin needs to be reversed. If the procedure cannot be conducted here in the near future3, I suggest that the patient be transferred to an alternate facility where it may be completed. Following the procedure, the patient should not undergo further debridement of necrotic tissue, as per Dr. Carter. 2. Deep vein thrombosis (DVT). The patient is on Coumadin, which is therapeutic. 3. Coronary artery disease. The patient is on Plavix, beta ila and a statin. 4. Schizoaffective disorder. The patient is on Geodon and Cogentin and stable. The patient is also on Haldol. 5. Type 2 diabetes with neuropathy. The patient is on Levemir. 6. Hypomagnesemia, repleted. 7. Gastroesophageal reflux disease (GERD). The patient is on Tums. DISPOSITION: The patient is currently awaiting vascular surgery intervention for definitive debridement of his lower extremity wound.
[2016-08-08] MEDS: MAG SULF 1GM/100ML (MAG RUN) 1 GM in APPROPRIATE DILUENT 1 EA IV SCH ×2 (16:07→17:23)
[2016-08-08] MEDS: WARFARIN SOD 3 MG TAB PO SCH (17:22)
[2016-08-08] MEDS: BENZTROPINE 0.5 MG TAB PO SCH (17:23)
[2016-08-08 22:00] VITALS: BP 169/83
[2016-08-08] MEDS: SIMVASTATIN 20 MG TAB PO SCH (22:10)
[2016-08-09] MEDS: PERCOCET 5MG/325MG TAB PO PRN ×3 (00:37→23:08)
[2016-08-09] MEDS: AMPICILLIN SOD/SULBACTAM SOD 3 GM in D5W MINI-BAG PLUS 100 ML IV SCH ×4 (05:13→23:08)
[2016-08-09] MEDS: SODIUM CHLORIDE 0.9% INJ 10 ML SYR IV SCH ×2 (05:13→18:56)
[2016-08-09 06:00] VITALS: BP 169/83
[2016-08-09] MEDS: HumaLOG INSULIN (NovoLOG) PER UNIT SC SCH ×4 (07:30→20:55)
[2016-08-09 09:42] LABS: INR 2.16
[2016-08-09 09:45] LABS: CALCIUM LEVEL 7.9 MG/DL (8.8-10.2); CREATININE FOR GFR 1.89 MG/DL (0.70-1.30); GLOMERULAR FILTRATION RATE 38.2 (>49)
[2016-08-09 09:49] LABS: MEAN CORPUSCULAR HEMOGLOBIN 30.2 pg (27.0-33.0); MEAN CORPUSCULAR HGB CONC 32.6 g/dl (32.0-36.5); MEAN CORPUSCULAR VOLUME 92.5 fl (80.0-96.0); RED CELL DISTRIBUTION WIDTH 14.5 % (11.5-14.5); WHITE BLOOD COUNT 12.8 K/mm3 (4.0-10.0)
[2016-08-09] MEDS: HALOPERIDOL 5 MG TAB PO SCH (09:57)
[2016-08-09] MEDS: CLOPIDOGREL 75 MG TAB PO SCH (09:57)
[2016-08-09] MEDS: LEVEMIR (INSULIN DETEMIR) 1 UNITS/0.01ML SC SCH ×2 (09:57→20:55)
[2016-08-09] MEDS: ZIPRASIDONE 80 MG CAP (GEODON) PO SCH ×2 (09:57→20:55)
[2016-08-09] MEDS: DOCUSATE SODIUM 100 MG CAP PO SCH ×2 (09:57→20:55)
[2016-08-09] MEDS: ATENOLOL 50 MG TAB PO SCH (09:58)
[2016-08-09] MEDS: NYSTATIN 100,000 UNITS/GM TOPICAL PWD 15 GM TOP SCH ×2 (09:59→20:56)
[2016-08-09 14:00] VITALS: BP 158/72
--- NOTE | 2016-08-09 18:54 | IPN ---
DATE: 08/09/2016 SUBJECTIVE: Mr. Cisneros is a 66-year-old male who was seen and examined at the bedside. Patient denies chest pain, orthopnea, paroxysmal nocturnal dyspnea (PND). Patient also denies nausea, vomiting, diarrhea, constipation. Today, patient has been scheduled to have the endarterectomy which will be performed by Dr. Jeffers. Patient also has a peripherally inserted central catheter (PICC) line. OBJECTIVE: VITAL SIGNS: Temperature 98.8, pulse 57, respiratory rate 20, blood pressure 169/83, pulse oximetry 92% on room air. Total intake from yesterday 3605, total output 3700. GENERAL APPEARANCE: Patient was lying in bed, in no acute distress. Patient was awake, alert, and oriented to time, place, and person. HEENT: Normocephalic, atraumatic. Pupils are equal and reactive to light. Oral mucous is moist. NECK: Soft, supple. No lymphadenopathy. No thyromegaly. No jugular venous distention (JVD). HEART: Regular rate and rhythm, normal S1, S2. RESPIRATORY: Clear breath sounds bilaterally, good air movement. ABDOMEN: Obese. Positive bowel sounds in all quadrants. No tenderness to palpation. EXTREMITIES: Patient has amputation on the right and the left has surgical dressing that is clean, dry, and intact. Also patient has some hematomas on the anterior and posterior of the left leg secondary to angiogram procedure. LABORATORY DATA: White blood cells 12.8, red blood cells 2.83, hemoglobin 8.5, hematocrit 26.2, MCV 92.5, MCH 30.2, MCHC 32.6, RDW 14.5, platelet count 280, PT 24.2, INR 2.16. Sodium 139, potassium 4, chloride 102, carbon dioxide 29, anion gap 8, BUN 26, creatinine 1.89, glomerular filtration rate 38.2, fasting glucose 122, calcium 7.9. ASSESSMENT AND PLAN: 1. Gangrenous osteomyelitis. Patient has been seen by Dr. Gaona. Patient is on Unasyn for a total of 6 weeks. Patient has a peripherally inserted central catheter (PICC) line and we will continue with Unasyn. 2. Peripheral vascular disease with necrosis. Dr. Jeffers has scheduled the patient to take to the operating room (OR) for endarterectomy. Patient is on warfarin and based on Dr. Jeffers's recommendation we have not stopped the warfarin. 3. Insulin-dependent diabetes. We will continue the patient on Levemir and sliding scale. 4. Hypertension. Patient is on atenolol. 5. Coronary artery disease. Patient is on Plavix, atenolol, and Coumadin. 6. Bilateral cataracts. This is a chronic issue. 7. Peripheral neuropathy. This is a chronic issue. 8. Schizophrenia. Patient is on Haldol and Geodon. 9. Deep venous thrombosis (DVT) prophylaxis. Patient is on Coumadin and INR is therapeutic. 10. Chronic kidney disease. Patient is at baseline. My preceptor for this patient encounter was Dr. Fanny Gonzalez. The preceptor was physically present in the building during the encounter and was fully available. As needed, all aspects of the patient interview, examination, medical decision making process, and medical care plan development were reviewed and approved by the preceptor. The preceptor is aware and concurs with the plan as stated in the body of this note and will attest to such by his cosignature.
[2016-08-09] MEDS: WARFARIN SOD 3 MG TAB PO SCH (18:55)
[2016-08-09] MEDS: BENZTROPINE 0.5 MG TAB PO SCH (18:55)
[2016-08-09] MEDS: SIMVASTATIN 20 MG TAB PO SCH (20:55)
[2016-08-09] MEDS: CALCIUM CARBONATE 500 MG CHEW U/D PO PRN (20:55)
[2016-08-09 22:00] VITALS: BP 146/66
[2016-08-10] MEDS: SODIUM CHLORIDE 0.9% INJ 10 ML SYR IV SCH ×2 (05:28→17:40)
[2016-08-10] MEDS: AMPICILLIN SOD/SULBACTAM SOD 3 GM in D5W MINI-BAG PLUS 100 ML IV SCH ×4 (05:28→23:57)
[2016-08-10 06:00] VITALS: BP 145/64
[2016-08-10 06:48] LABS: MEAN CORPUSCULAR HEMOGLOBIN 29.8 pg (27.0-33.0); MEAN CORPUSCULAR HGB CONC 32.6 g/dl (32.0-36.5); MEAN CORPUSCULAR VOLUME 91.5 fl (80.0-96.0); RED CELL DISTRIBUTION WIDTH 14.6 % (11.5-14.5); WHITE BLOOD COUNT 10.1 K/mm3 (4.0-10.0)
[2016-08-10 06:52] LABS: INR 1.98
[2016-08-10 07:05] LABS: CALCIUM LEVEL 8.5 MG/DL (8.8-10.2); CREATININE FOR GFR 1.98 MG/DL (0.70-1.30); GLOMERULAR FILTRATION RATE 36.2 (>49); POTASSIUM SERUM 3.7 MEQ/L (3.5-5.1)
[2016-08-10] MEDS ORDERED: CONRAY-60 60% 50ML VIAL (Q9961) As Ordered ONE (07:28)
[2016-08-10] MEDS ORDERED: ceFAZolin 1GM INJ (J0690) As Ordered ONE (07:28)
[2016-08-10] MEDS ORDERED: HEPARIN SOD (PORCINE) 5000 UNITS/ML VIAL As Ordered ONE ×2 (07:28→07:32)
[2016-08-10] MEDS: HumaLOG INSULIN (NovoLOG) PER UNIT SC SCH ×4 (07:30→20:38)
[2016-08-10] MEDS: ATENOLOL 50 MG TAB PO SCH (07:53)
[2016-08-10] MEDS: NYSTATIN 100,000 UNITS/GM TOPICAL PWD 15 GM TOP SCH ×2 (07:59→20:38)
[2016-08-10] MEDS: LEVEMIR (INSULIN DETEMIR) 1 UNITS/0.01ML SC SCH ×2 (07:59→20:37)
[2016-08-10] MEDS: DOCUSATE SODIUM 100 MG CAP PO SCH ×2 (09:00→20:37)
[2016-08-10] MEDS: HALOPERIDOL 5 MG TAB PO SCH (09:00)
[2016-08-10] MEDS: ZIPRASIDONE 80 MG CAP (GEODON) PO SCH ×2 (09:00→20:37)
[2016-08-10] MEDS: CLOPIDOGREL 75 MG TAB PO SCH (09:59)
[2016-08-10] MEDS ORDERED: PROPOFOL 200 MG/20 ML VIAL As Ordered ONE (10:38)
[2016-08-10] MEDS ORDERED: fentaNYL 250 MCG/5 ML INJECTION (J3010) As Ordered ONE (10:38)
[2016-08-10] MEDS ORDERED: LIDOCAINE 2% INJ 100 MG/5 ML SDV (FOR ANES.) As Ordered ONE (10:38)
[2016-08-10] MEDS ORDERED: ROCURONIUM BROMIDE 50 MG/5 ML VIAL As Ordered ONE (10:38)
[2016-08-10] MEDS ORDERED: MIDAZOLAM INJ 2 MG/2 ML VIAL (J2250) As Ordered ONE (10:39)
--- NOTE | 2016-08-10 11:24 | REP ---
Clinical: Shortness of breath. Comparison: 06/27/2016. Findings: Right PICC line with tip in the SVC. Stable cardiomegaly noted. Portable technique and underpenetration accentuate the pulmonary vasculature and interstitium, and mild pulmonary vascular congestion cannot be excluded. No focal consolidation or significant atelectasis appreciated. No effusion or pneumothorax identified. Skeletal structures are intact. Impression: Cannot exclude mild pulmonary vascular congestion. Chronic cardiomegaly. Signed by Fredy Unger MD 08/10/2016 11:16 A
[2016-08-10] MEDS ORDERED: PHENYLEPHRINE INJ 10MG/ML VIAL (J2370) As Ordered ONE (12:43)
[2016-08-10 14:00] VITALS: BP 187/87
[2016-08-10] MEDS: WARFARIN SOD 3 MG TAB PO SCH (17:38)
[2016-08-10] MEDS: BENZTROPINE 0.5 MG TAB PO SCH (17:38)
[2016-08-10 17:47] VITALS: BP 142/62
--- NOTE | 2016-08-10 17:48 | IPN ---
DATE: 08/10/2016 SUBJECTIVE: Mr. Cisneros is a 66-year-old male who was seen and examined at the bedside. Patient was scheduled to have endarterectomy today with Dr. Jeffers, however procedure was cancelled due to anesthesiology required cardiac echocardiogram to have a better understanding about the ejection fraction. Patient's procedure has been postponed. His surgery has been postponed until tomorrow. Yesterday the care of the patient was transferred to Dr. Jeffers and Internal Medicine has been consulted. OBJECTIVE: VITAL SIGNS: Temperature 97.8, pulse 60, respiratory rate 18, blood pressure 145/64, pulse oximetry 93% on room air. Total intake from yesterday 2079, total output 3200. GENERAL APPEARANCE: Patient was lying in bed, in no acute distress. Patient was awake, alert, and oriented to time, place, and person. HEENT: Normocephalic, atraumatic. Pupils are equal and reactive to light. Oral mucous is moist. NECK: Soft, supple. No lymphadenopathy. No thyromegaly. HEART: Regular rate and rhythm, normal S1, S2. RESPIRATORY: Clear breath sounds bilaterally, good air movement. ABDOMEN: Soft and obese. Positive bowel sounds in all quadrants. EXTREMITIES: Patient has amputation on the right and the left has surgical dressing that is clean, dry, and intact. Patient right lower extremity is amputated. Patient's left lower extremity has a surgical dressing which is intact. Patient is status-post amputation of the gangrenous osteomyelitis of the fifth toe. LABORATORY DATA: White blood cells 10.1, red blood cells 2.89, hemoglobin 8.6, hematocrit 26.4, MCV 91.5, MCH 29.8, MCHC 32.6, RDW 14.8, platelet count 253, PT 22.6, INR 1.98. Sodium 139, potassium 3.7, chloride 101, carbon dioxide 33, anion gap 5, BUN 27, creatinine 1.98, glomerular filtration rate 36.2, fasting glucose 112, calcium 8.5. ASSESSMENT AND PLAN: 1. Gangrenous osteomyelitis. Dr. Gaona has been consulted. Patient is on Unasyn however based on Dr. Gaona's recommendation patient needs a total of 6 weeks of Unasyn. Patient has a peripherally inserted central catheter (PICC) line. 2. Peripheral vascular disease with necrosis. Care of the patient has been transferred to Dr. Jeffers and Internal Medicine and hospitalists have been consulted. Dr. Jeffers has ordered an echocardiogram due to the request from anesthesiology and the result is pending at this time. Dr. Jeffers may schedule patient for tomorrow morning if the echocardiogram does not show any abnormalities and anesthesiology has cleared the patient. 3. Insulin-dependent diabetes. We will continue the patient on Levemir and sliding scale. 4. Hypertension. Patient is on atenolol. 5. Coronary artery disease. Patient is on Plavix, atenolol, and Coumadin. 6. Bilateral cataracts. This is a chronic issue. 7. Peripheral neuropathy. This is a chronic issue. 8. Schizophrenia. Patient is on Haldol and Geodon. 9. Deep venous thrombosis (DVT) prophylaxis. Patient is on Coumadin. Today's INR is decreased to 1.98. We will continue with the same dosage and we will recheck the INR again tomorrow. 10. Chronic kidney disease. Patient is at baseline. My preceptor for this patient encounter was Dr. Aldo Hong. The preceptor was physically present in the building during the encounter and was fully available. As needed, all aspects of the patient interview, examination, medical decision making process, and medical care plan development were reviewed and approved by the preceptor. The preceptor is aware and concurs with the plan as stated in the body of this note and will attest to such by his cosignature. Attending Note: I have independently examined this patient and all aspects of the exam and treatment decisions have been discussed with the resident. A member of the hospitalist staff will continue to follow this patient through discharge. [place]
[2016-08-10] MEDS: SIMVASTATIN 20 MG TAB PO SCH (20:37)
[2016-08-10 22:00] VITALS: BP 146/67
[2016-08-11] MEDS: AMPICILLIN SOD/SULBACTAM SOD 3 GM in D5W MINI-BAG PLUS 100 ML IV SCH ×4 (05:32→22:24)
[2016-08-11] MEDS: SODIUM CHLORIDE 0.9% INJ 10 ML SYR IV SCH ×2 (05:33→17:08)
[2016-08-11 06:00] VITALS: BP 175/70
[2016-08-11 07:04] LABS: MEAN CORPUSCULAR HEMOGLOBIN 30.3 pg (27.0-33.0); MEAN CORPUSCULAR HGB CONC 32.9 g/dl (32.0-36.5); MEAN CORPUSCULAR VOLUME 92.2 fl (80.0-96.0); RED CELL DISTRIBUTION WIDTH 14.9 % (11.5-14.5); WHITE BLOOD COUNT 9.7 K/mm3 (4.0-10.0)
[2016-08-11 07:13] LABS: INR 1.69
--- NOTE | 2016-08-11 07:21 | ECHO ---
DATE OF PROCEDURE: 08/10/2016 REFERRING PHYSICIAN: Dr. Jeffers INDICATION: Coronary artery disease. The patient measures 170 cm and weighs 109 kg. DIMENSIONS: IVS - 1.3 LV - 6.0 LVPW - 1.2 LA - 4.3 Aorta - 3.0 FINDINGS: The patient is in sinus rhythm. Study is of difficult technical quality. Left ventricle is mildly dilated but globally probably normally contractile. I estimate overall EF around 50-55%. Right ventricle does not appear grossly enlarged. Left atrium is at least mildly enlarged. Right atrium is probably mildly enlarged as well. Aortic valve has sclerotic abnormalities but mobility is preserved. Mitral tricuspid and pulmonic valves appear normal. No pericardial effusion is noted. Inferior vena cava is normal size and appropriately collapses with respiration indicative of normal central venous pressure. Aortic root is normal. Aortic arch and abdominal aorta were not seen. Doppler interrogation of aortic valve reveals no insufficiency and mild stenosis (mean gradient was only 8 mmHg). There is mild mitral insufficiency and no tricuspid and pulmonic insufficiency. Mitral inflow pattern and tissue Doppler imaging of mitral annulus reveal probably grade 2 diastolic dysfunction even though tissue Doppler velocity of lateral annulus is preserved at 11 cm/s. CONCLUSIONS: 1. The study is of difficult technical quality. 2. Mildly dilated left ventricle with mild LVH and overall normal or near normal LV systolic function. Probably grade 2 diastolic dysfunction. 3. Heavy aortic sclerosis but only trivial stenosis. 4. No further significant valvular disease. 5. Normal central venous pressure. 6. Unable to estimate pulmonary artery pressure. COMMENT: SBE prophylaxis is not recommended cyanotic.
[2016-08-11] MEDS: HumaLOG INSULIN (NovoLOG) PER UNIT SC SCH ×4 (07:30→20:44)
[2016-08-11 07:33] LABS: CALCIUM LEVEL 8.6 MG/DL (8.8-10.2); CREATININE FOR GFR 2.01 MG/DL (0.70-1.30); GLOMERULAR FILTRATION RATE 35.6 (>49); POTASSIUM SERUM 3.8 MEQ/L (3.5-5.1)
[2016-08-11] MEDS: CLOPIDOGREL 75 MG TAB PO SCH (08:19)
[2016-08-11] MEDS: ATENOLOL 50 MG TAB PO SCH (08:20)
[2016-08-11] MEDS: ZIPRASIDONE 80 MG CAP (GEODON) PO SCH ×3 (08:22→20:43)
[2016-08-11] MEDS: LEVEMIR (INSULIN DETEMIR) 1 UNITS/0.01ML SC SCH ×3 (08:22→20:44)
[2016-08-11] MEDS: HALOPERIDOL 5 MG TAB PO SCH ×2 (08:22→09:57)
[2016-08-11] MEDS: NYSTATIN 100,000 UNITS/GM TOPICAL PWD 15 GM TOP SCH ×2 (08:23→20:45)
[2016-08-11] MEDS: DOCUSATE SODIUM 100 MG CAP PO SCH ×2 (09:49→20:43)
[2016-08-11] MEDS: PERCOCET 5MG/325MG TAB PO PRN ×2 (09:52→20:45)
[2016-08-11] MEDS: FUROSEMIDE 40 MG TAB PO SCH (12:28)
[2016-08-11 14:00] VITALS: BP 128/53
--- NOTE | 2016-08-11 15:41 | IPN ---
DATE: 08/11/2016 SUBJECTIVE: Mr. Cisneros is a 66-year-old male who was seen and examined at the bedside. Patient denies any overnight issues. Patient denies chest pain, orthopnea, or paroxysmal nocturnal dyspnea (PND). Patient also denies nausea, vomiting, diarrhea, or constipation. Patient was scheduled to have the surgery (endarterectomy) yesterday by Dr. Jeffers. However, anesthesiologist required echocardiogram. Echocardiogram was performed yesterday and the result was sent for the anesthesiologist. Based on the nursing reports, Dr. Jeffers will schedule the patient for the surgery either tomorrow or on Tuesday. The patient denies chest pain, orthopnea, or PND. The patient also denies nausea, vomiting, diarrhea, or constipation. OBJECTIVE: VITAL SIGNS: Temperature 97.9, pulse 55, respiratory rate 18, blood pressure 175/70, pulse oximetry 92% on room air. Total intake from yesterday 1500, total output 1600. GENERAL APPEARANCE: Patient was lying in bed, in no acute distress. Patient was awake, alert, and oriented to time, place, and person. HEENT: Normocephalic, atraumatic. Pupils are equal and reactive to light. Oral mucous is moist. NECK: Soft, supple. No lymphadenopathy. No thyromegaly. Patient has mild elevated jugular venous distention (JVD). HEART: Regular rate and rhythm, normal S1, S2. RESPIRATORY: Clear breath sounds bilaterally, good air movement. ABDOMEN: Soft, nontender. Positive bowel sounds heard in all quadrants. EXTREMITIES: Patient has amputation on the right and the left has surgical dressing that is clean, dry, and intact. No drainage or discharge was noticed in the site of surgery. Patient also has a lump on the left inguinal area as well as ecchymosis. LABORATORY DATA: White blood cells 9.7, red blood cells 2.84, hemoglobin 8.6, hematocrit 26.2, MCV 92.2, MCH 30.2, MCHC 32.9, RDW 14.9, platelet count 282, PT 20, INR 1.69. Sodium 141, potassium 3.8, chloride 109, carbon dioxide 34, anion gap 5, BUN 28, creatinine 2.01, glomerular filtration rate 35.6, fasting glucose 122, calcium 8.6. ASSESSMENT AND PLAN: 1. Gangrenous osteomyelitis. Patient has a peripherally inserted central catheter (PICC) line. Patient is on Unasyn and will continue this for a total of six weeks based on Dr. Gaona's recommendation. 2. Peripheral vascular disease with necrosis. Dr. Jeffers has scheduled the patient for tomorrow or Tuesday for the surgery. At this time, we will continue monitoring the patient for any abnormal symptoms. I spoke with Dr. Jeffers regarding anticoagulation and Dr. Jeffers indicated that the patient needs to be on Coumadin. Therefore, we will continue the patient on Coumadin. 3. Insulin-dependent diabetes. We will continue the patient on Levemir and sliding scale. 4. Hypertension. Patient is on atenolol. We started the patient on Lasix 40 mg by mouth daily. 5. Acute renal failure on chronic renal disease. Patient's creatinine has increased today. This is possibly secondary to cardiorenal effect and hypervolemic. I have started the patient on Lasix 40 mg pain. We will continue to monitor the patient for any abnormal symptoms. 6. Coronary artery disease. Patient is on Plavix, atenolol, and Coumadin. 7. History of deep vein thrombosis (DVT) in the past. Patient is on Coumadin. However, the patient's international normalized ratio (INR) is not therapeutic. The patient is on 6 mg and I added one more dose of 3 mg for a total of 9 mg for today. We will check the prothrombin time (PT) and INR level again tomorrow. 8. Peripheral vascular disease. 9. Schizophrenia. Patient is on Haldol and Geodon. 10. DVT prophylaxis. Patient is on Coumadin. My preceptor for this patient encounter was Dr. Aldo Hong. The preceptor was physically present in the building during the encounter and was fully available. As needed, all aspects of the patient interview, examination, medical decision making process, and medical care plan development were reviewed and approved by the preceptor. The preceptor is aware and concurs with the plan as stated in the body of this note and will attest to such by his cosignature. Attending Note: I have independently examined this patient and all aspects of the exam and treatment decisions have been discussed with the resident. A member of the hospitalist staff will continue to follow this patient through discharge. FLORENTINO
[2016-08-11] MEDS ORDERED: WARFARIN SOD 3 MG TAB PO ONE (17:00)
[2016-08-11] MEDS: WARFARIN SOD 3 MG TAB PO SCH (17:06)
[2016-08-11] MEDS: BENZTROPINE 0.5 MG TAB PO SCH (17:07)
[2016-08-11] MEDS: SIMVASTATIN 20 MG TAB PO SCH (20:43)
[2016-08-11 22:00] VITALS: BP 142/64
[2016-08-12] VITALS (10 sets, daily range): BP systolic 95–151; BP diastolic 56–69
--- NOTE | 2016-08-12 01:42 | IPN ---
DATE: 08/11/2016 Mr. Cisneros seems to be doing well. He is in good spirits. He had an echocardiogram yesterday for anesthesia clearance. He denies any chest pain, shortness of breath, nausea, vomiting, or diarrhea. He still has some pain in the bottom of his foot, especially when he walks. He has been afebrile, tolerating antibiotics without side effects. Temperature is 97.9, pulse 53, respirations 20, blood pressure 128/83, oxygen saturation 95% on room air. HEART: Normal S1, S2 with no murmurs. LUNGS: Clear. ABDOMEN: Morbidly obese, soft, nontender. Left leg: Major ecchymosis medially of the thigh with amputation of the 4th toe with dry gangrene around the surgical scar, which is open. There is absent dorsalis pedis pulse. The bottom of the foot still has some erythema and tenderness along the plantar aspect of the foot, although that has diminished as well. LABORATORY DATA: White count is 9.7, hemoglobin 8.6, hematocrit 26.2, platelets 282. Sodium 141, potassium 3.8, chloride 102, bicarbonate 34, BUN 28, creatinine 2.01. CRP is 1.97 down from 15.6. MEDICATIONS: - furosemide 40 mg by mouth daily - Unasyn 3 grams intravenous (IV) every 6 hours - atenolol 50 mg by mouth daily - Plavix 75 mg by mouth daily - Haldol 5 mg by mouth daily - Zocor 20 mg at bedtime - Geodon 80 mg by mouth twice a day - Levemir 35 units subcutaneous every morning Blood cultures were no growth on July 31. Wound culture positive for methicillin-sensitive Staphylococcus aureus (MSSA), bacteroides, and Group C streptococcus. IMPRESSION: 1. Gangrene of the left lower extremity with osteomyelitis of the 5th toe, status post amputation. Polymicrobial jose daniel, on IV Unasyn with marked improvement. 2. Severe peripheral vascular disease of the left leg. The patient is waiting for bypass to be done by Dr. Castro. 3. History of coronary artery disease. The patient sees Dr. Zamarripa as a top cager. He had a technically difficult echo, but he has mild left ventricular hypertrophy (LVH), heavy aortic sclerosis. No significant valvular disease otherwise. PLAN: Continue IV Unasyn. Currently there is necrosis and gangrene of the foot, but MRI had not shown any extension of the osteomyelitis to the rest of the foot. Will decide on his course of IV antibiotic after surgery and revascularization. The patient probably will need some further debridement of this necrotic area. Continue IV Unasyn at current dose. MTDD
[2016-08-12] MEDS: PERCOCET 5MG/325MG TAB PO PRN ×3 (02:55→19:32)
[2016-08-12] MEDS: SODIUM CHLORIDE 0.9% INJ 10 ML SYR IV SCH ×2 (04:51→21:16)
[2016-08-12] MEDS: AMPICILLIN SOD/SULBACTAM SOD 3 GM in D5W MINI-BAG PLUS 100 ML IV SCH ×4 (04:51→23:34)
[2016-08-12] MEDS: HumaLOG INSULIN (NovoLOG) PER UNIT SC SCH ×4 (07:30→21:00)
[2016-08-12 08:31] LABS: MEAN CORPUSCULAR HGB CONC 33.1 g/dl (32.0-36.5); MEAN CORPUSCULAR VOLUME 90.8 fl (80.0-96.0); RED CELL DISTRIBUTION WIDTH 15.3 % (11.5-14.5); WHITE BLOOD COUNT 10.1 K/mm3 (4.0-10.0)
[2016-08-12 08:39] LABS: CALCIUM LEVEL 7.6 MG/DL (8.8-10.2); GLOMERULAR FILTRATION RATE 35.8 (>49)
[2016-08-12] MEDS: LEVEMIR (INSULIN DETEMIR) 1 UNITS/0.01ML SC SCH ×2 (08:40→21:16)
[2016-08-12] MEDS: CLOPIDOGREL 75 MG TAB PO SCH (08:40)
[2016-08-12] MEDS: ZIPRASIDONE 80 MG CAP (GEODON) PO SCH ×2 (08:40→21:14)
[2016-08-12] MEDS: DOCUSATE SODIUM 100 MG CAP PO SCH ×2 (08:40→21:14)
[2016-08-12] MEDS: FUROSEMIDE 40 MG TAB PO SCH (08:40)
[2016-08-12] MEDS: ATENOLOL 50 MG TAB PO SCH (08:41)
[2016-08-12] MEDS: HALOPERIDOL 5 MG TAB PO SCH (08:41)
[2016-08-12 08:42] LABS: INR 1.53
[2016-08-12] MEDS: NYSTATIN 100,000 UNITS/GM TOPICAL PWD 15 GM TOP SCH ×2 (08:42→21:18)
--- NOTE | 2016-08-12 12:25 | IPN ---
DATE: 08/12/2016 SUBJECTIVE: Mr. Cisneros is a 66-year-old male who was seen and examined at the bedside. The patient denies chest pain, orthopnea or paroxysmal nocturnal dyspnea (PND). The patient also denies nausea, vomiting, diarrhea or constipation. The patient is scheduled to have surgery today, which will be done by Dr. Jeffers. PHYSICAL EXAMINATION: VITAL SIGNS: Blood pressure 127/60, pulse 60, respiratory rate 28, temperature 97.3, oxygen saturation 93% on room air. Weight 68.4 kg. Height 165.10 cm. BMI 24.96. GENERAL APPEARANCE: The patient was lying in bed, in no acute distress. The patient was awake, alert and oriented to time, place and person. HEENT: Normocephalic, atraumatic. Pupils are equal and reactive to light. Oral mucosa is moist. NECK: No lymphadenopathy. HEART: Regular rate and rhythm. Normal S1, S2. LUNGS: Clear breath sounds bilaterally. Good air movement. ABDOMEN: Morbidly obese. Soft, nontender. Positive bowel sounds in all quadrants. EXTREMITIES: The patient's right lower extremity was amputated. The patient has a left lower extremity with surgical dressing that is intact, clean, dry and no drainage or bleeding was noticed from the site of the surgery. The patient also has a lump in the left inguinal area as well as ecchymosis on the left lower extremity anterior and posterior, mostly near the inguinal area. LABORATORY DATA: WBC 10.1, RBC 3.11, hemoglobin 9.3, hematocrit 28.2, MCV 90.8, MCH 20.0, MCHC 33.1, RDW 15.3, platelet count 284. PT 18.5, INR 1.53. Sodium 140 , potassium 4, chloride 102, carbon dioxide 32, anion gap 6, BUN 29, creatinine 2. Glomerular filtration rate (GFR) 35, fasting glucose 418, calcium 7.6. ASSESSMENT AND PLAN: 1. Gangrenous osteomyelitis. The patient has a PICC line. The patient is on Unasyn and based on Dr. Gaona's recommendation, the patient needs a total of six weeks of antibiotic treatment. 2. Peripheral vascular disease with necrosis. Dr. Jeffers has scheduled the patient for today as the patient is stable, medically optimized. 3. Insulin dependent diabetes. We will continue the patient on Levemir and sliding scale. 4. Hypertension. The patient is on atenolol. Also we have started the patient on Lasix 40 by mouth daily. 5. Acute renal failure on chronic renal disease. The patient's creatinine today is the same as yesterday and has not increased. Will continue the patient on Lasix 40 mg daily. Also will continue the patient's input and output. 6. Coronary artery disease. The patient is on Plavix, atenolol and Coumadin. 7. History of deep venous thrombosis. The patient is on Coumadin, however, the patient's INR level is therapeutic. I added 3 mg of warfarin to the daily dose for a total of 9 mg of warfarin. We will check the PT/INR again tomorrow. 8. Peripheral vascular disease. This is a chronic issue. The patient is stable. 9. Schizophrenia. The patient is Haldol and Geodon. 10. Deep venous thrombosis (DVT) prophylaxis. The patient is on Coumadin. My preceptor for this patient encounter was Dr. Aldo Hong. The preceptor was physically present in the building during the encounter and was fully available. As needed, all aspects of the patient interview, examination, medical decision making process, and medical care plan development were reviewed and approved by the preceptor. The preceptor is aware and concurs with the plan as stated in the body of this note and will attest to such by his/her cosignature. Attending Note: I have independently examined this patient and all aspects of the exam and treatment decisions have been discussed with the resident. A member of the hospitalist staff will continue to follow this patient through discharge. FLORENTINO
[2016-08-12] MEDS ORDERED: THROMBIN SOLN 20,000 UNITS KIT As Ordered ONE (14:01)
[2016-08-12] MEDS ORDERED: ceFAZolin 1GM INJ (J0690) As Ordered ONE (14:01)
[2016-08-12] MEDS ORDERED: HEPARIN SOD (PORCINE) 5000 UNITS/ML VIAL As Ordered ONE ×3 (14:02→17:05)
[2016-08-12] MEDS ORDERED: LIDOCAINE 1% SDV INJ 30 ML VIAL As Ordered ONE (14:54)
[2016-08-12] MEDS ORDERED: BUPIVACAINE HCL 0.5% 30 ML VIAL As Ordered ONE (14:54)
[2016-08-12] MEDS ORDERED: PROPOFOL 200 MG/20 ML VIAL As Ordered ONE ×3 (15:10→17:03)
[2016-08-12] MEDS ORDERED: fentaNYL 100 MCG/2 ML INJECTION (J3010) As Ordered ONE ×2 (15:10→18:39)
[2016-08-12] MEDS ORDERED: MIDAZOLAM INJ 2 MG/2 ML VIAL (J2250) As Ordered ONE (15:10)
[2016-08-12] MEDS ORDERED: ePHEDrine SULFATE 25 MG/5 ML(5MG/ML) SYRINGE As Ordered ONE (15:10)
[2016-08-12] MEDS ORDERED: LIDOCAINE 2% INJ 100 MG/5 ML SDV (FOR ANES.) As Ordered ONE (15:11)
[2016-08-12] MEDS ORDERED: WARFARIN SOD 3 MG TAB PO ONE (17:00)
[2016-08-12] MEDS ORDERED: UNASYN 1.5 GM VIAL As Ordered ONE (18:22)
[2016-08-12] MEDS: fentaNYL 100 MCG/2 ML INJECTION (J3010) IV PRN ×4 (18:40→19:20)
[2016-08-12] MEDS ORDERED: ONDANSETRON 4MG/2ML VIAL (J2405) IV PRN (19:15)
[2016-08-12] MEDS ORDERED: LR 1,000 ML IV SCH (19:15)
[2016-08-12 19:17] LABS: MEAN CORPUSCULAR HEMOGLOBIN 31.4 pg (27.0-33.0); MEAN CORPUSCULAR VOLUME 92.3 fl (80.0-96.0); WHITE BLOOD COUNT 14.3 K/mm3 (4.0-10.0)
[2016-08-12] MEDS ORDERED: PERCOCET 5MG/325MG TAB As Ordered ONE (19:32)
[2016-08-12] MEDS: NS 0.45% 1,000 ML IV SCH (20:24)
[2016-08-12] MEDS: BENZTROPINE 0.5 MG TAB PO SCH (21:15)
[2016-08-12] MEDS: WARFARIN SOD 3 MG TAB PO SCH (21:15)
[2016-08-12] MEDS: SIMVASTATIN 20 MG TAB PO SCH (21:15)
[2016-08-13] VITALS (10 sets, daily range): BP systolic 96–138; BP diastolic 50–67
[2016-08-13] MEDS: CALCIUM CARBONATE 500 MG CHEW U/D PO PRN (04:40)
[2016-08-13] MEDS: AMPICILLIN SOD/SULBACTAM SOD 3 GM in D5W MINI-BAG PLUS 100 ML IV SCH ×3 (04:41→20:38)
[2016-08-13] MEDS: SODIUM CHLORIDE 0.9% INJ 10 ML SYR IV SCH ×2 (05:08→17:15)
[2016-08-13 05:18] LABS: MEAN CORPUSCULAR HEMOGLOBIN 30.6 pg (27.0-33.0); MEAN CORPUSCULAR HGB CONC 33.5 g/dl (32.0-36.5); MEAN CORPUSCULAR VOLUME 91.4 fl (80.0-96.0); RED CELL DISTRIBUTION WIDTH 15.2 % (11.5-14.5); WHITE BLOOD COUNT 18.7 K/mm3 (4.0-10.0)
[2016-08-13 05:24] LABS: INR 1.63
[2016-08-13 05:34] LABS: CALCIUM LEVEL 7.3 MG/DL (8.8-10.2); CREATININE FOR GFR 2.69 MG/DL (0.70-1.30); GLOMERULAR FILTRATION RATE 25.4 (>49); POTASSIUM SERUM 3.9 MEQ/L (3.5-5.1)
[2016-08-13] MEDS: CLOPIDOGREL 75 MG TAB PO SCH (08:02)
[2016-08-13] MEDS: FUROSEMIDE 40 MG TAB PO SCH (08:02)
[2016-08-13] MEDS: HALOPERIDOL 5 MG TAB PO SCH (08:03)
[2016-08-13] MEDS: DOCUSATE SODIUM 100 MG CAP PO SCH ×2 (08:03→20:38)
[2016-08-13] MEDS: ATENOLOL 50 MG TAB PO SCH (08:03)
[2016-08-13] MEDS: NYSTATIN 100,000 UNITS/GM TOPICAL PWD 15 GM TOP SCH ×2 (08:04→20:40)
[2016-08-13] MEDS: HumaLOG INSULIN (NovoLOG) PER UNIT SC SCH ×4 (08:04→20:38)
[2016-08-13] MEDS: LEVEMIR (INSULIN DETEMIR) 1 UNITS/0.01ML SC SCH ×2 (08:04→20:37)
[2016-08-13] MEDS: NS 0.45% 1,000 ML IV SCH ×2 (08:05→19:37)
[2016-08-13] MEDS: ZIPRASIDONE 80 MG CAP (GEODON) PO SCH ×2 (08:06→20:38)
[2016-08-13] MEDS: PERCOCET 5MG/325MG TAB PO PRN ×3 (08:41→23:16)
--- NOTE | 2016-08-13 13:22 | REP ---
Clinical: Acute renal failure. Technique: Real time palomino scale ultrasound examination using curved array transducer. Findings: Bilateral kidneys are heterogeneously echogenic but normal in reniform shape without hydronephrosis, obvious nephrolithiasis, cystic or mass lesion. No perinephric fluid collections are identified. Right kidney measures 12.5 x 5.7 x 5.5 cm. Left kidney measures 11.5 x 5.1 x 4.9 cm. Bladder is essentially unremarkable and currently measures 9.0 x 13.0 x 7.1 cm. Impression: Findings suggest chronic medical renal disease. No evidence for hydronephrosis. Signed by Fredy Unger MD 08/13/2016 01:13 P
--- NOTE | 2016-08-13 14:25 | IPN ---
DATE: 08/13/2016 Mr. Cisneros seems to be doing well. He was seen in the intensive care unit (ICU). He has no complaints. He states he feels much better since his surgery. He had a similar endarterectomy of the left leg yesterday. He has no nausea, vomiting, diarrhea, fever or chills. VITAL SIGNS: Temperature is 98, pulse 77, respirations 18, blood pressure 114/67, Oxygen saturation 96% on room air. HEART: Normal S1, S2 with no murmurs, rubs or gallops. LUNGS: Clear. No wheezes or rhonchi. ABDOMEN: Morbidly obese, soft, nontender. EXTREMITIES: Left leg ecchymosis medially from angiogram. He has a drain and Prevena wound VAC at the surgery site. Popliteal fossa could be felt but no posterior tibialis or dorsalis pedis pulses. LABORATORY DATA: White count is 18.7, hemoglobin 9.8, hematocrit 29.2, platelets 309. Sodium 138, potassium 3.9, chloride 99, bicarbonate 30, BUN 36, creatinine 2.7, glucose 162, calcium 7.3, CRP was down from 15.6 to 1.97. IMPRESSION 1. Left foot gangrene with abscess, status post debridement. The patient has a necrotic area at the wound site. There is some purulent discharge as well. On IV Unasyn. Culture positive for methicillin sensitive Staphylococcus aureus (MSSA) and Group C strep and bacteroides. 2. Peripheral vascular disease status post femoral endarterectomy of the left leg. The patient still has no pulses in the foot. 3. Insulin-dependent diabetes. 4. Acute renal failure on chronic kidney disease. His creatinine has increased drastically today postoperatively. Renal is consulted. PLAN: I will adjust Unasyn dosing, dose should be 3 grams every 8 hours. We will also discuss the case with Dr. Carter, whether the wound needs further debridement once the circulation has improved.
--- NOTE | 2016-08-13 14:58 | IPN ---
DATE OF SERVICE: 08/13/2016 The patient seen and examined at the bedside. Denies overnight complaints. He states it is a little sore in his foot, otherwise doing okay. The patient has been afebrile for 24 hours. Other vital signs stable. Labs reviewed: White blood cell counts elevated. He did have his surgery yesterday. Lower extremity examination: No further spreading of the gangrene. The wound is stable and dry. Erythema surrounding the wound is improved. No malodor to wound. No necrosis within wound. No purulence. ASSESSMENT: 66-year-old male with status post left 5th toe amputation status post incision and drainage with peripheral vascular disease. He underwent his vascular procedure with Dr. Jeffers yesterday. At this time continue current antibiotics per infectious disease. Continue current wound care dressings. Will allow the eschar to demarcate itself and allow further blood flow improvement to occur from the procedure prior to any further debridement but the latest process does take a few weeks. He will followup with wound care center upon discharge. Will continue to follow while in-house.
--- NOTE | 2016-08-13 16:49 | IPN ---
DATE: 08/13/2016 SUBJECTIVE: Mr. Cisneros is a 66-year-old male who was seen and examined at the bedside. Patient was seen in the intensive care unit (ICU). Patient is status post endarterectomy, which was performed yesterday by Dr. Jeffers. Patient has a wound vacuum-assisted closure (VAC), and the surgical wound is intact. Patient denies chest pain, orthopnea, paroxysmal nocturnal dyspnea (PND). Patient also denies nausea or vomiting; however, patient expressed mild tenderness and pain in the surgical area, which is in proportion to the surgical site. OBJECTIVE: VITAL SIGNS: Temperature 98, pulse 77, respiratory rate 18, blood pressure 114/67, pulse oximetry 96 on room air. Total intake from yesterday 3280, total output 1890. GENERAL APPEARANCE: Patient was lying in bed in no acute distress. Patient was awake, alert, and oriented to time, place, and person. HEENT: Normocephalic, atraumatic. Pupils are equal and reactive to light. Oral mucosa is moist. NECK: Soft, supple. No lymphadenopathy. No thyromegaly. HEART: Regular rate and rhythm. Normal S1, S2. LUNGS: Clear breath sounds bilaterally. Good air movement. ABDOMEN: Morbidly obese, soft, nontender. Positive bowel sounds in all quadrants. EXTREMITIES: Patient has the wound VAC on the right inguinal area due to endarterectomy, which was done yesterday. Wound VAC is functional. Wound is clean. Patient also has lower extremity surgical dressing on the foot, which is clean. No drainage or bleeding was noticed. Patient has pain with movement of the lower extremity. This proportional to the surgical site. LABORATORY DATA: White blood cells 18.7, red blood cells 3.20, hemoglobin 9.8, hematocrit 29.2, MCV 91.4, MCH 30.6, MCHC 33.6, RDW 15.2, platelet count 382. Sodium 138, potassium 3.9, chloride 99, carbon dioxide 30, anion gap 9, BUN 36, creatinine 2.6, glomerular filtration rate 25.4, fasting glucose 162, calcium 7.3. Urinalysis (UA) is pending. ASSESSMENT AND PLAN: 1. Acute renal failure on chronic kidney disease. Today patient's creatinine has increased to 2.69 above his baseline. This could be possibly secondary to dye, which was used during yesterday's surgery. Patient has on Lasix due to possibility of cardiorenal effect; however, we have stopped Lasix. We will continue patient on intravenous (IV) fluid. Also we have consulted Dr. Cm. Appreciate Dr. Cm's recommendations. At this time we are waiting for further recommendations from Dr. Cm. 2. Peripheral vascular disease with necrosis. Dr. Jeffers performed endarterectomy yesterday. Patient is optimized. At this time, patient is continued on warfarin; however, patient's INR is not therapeutic; however, it has increased compared to yesterday. 3. Gangrenosum osteomyelitis of the left foot. Patient has a necrotic area at the wound site. Patient is on IV Unasyn. Culture was positive for methicillin-sensitive Staphylococcus aureus (MSSA) and group C streptococcus bacteroides. 4. Insulin-dependent diabetes. We will continue patient on sliding scale. 5. Hypertension. Patient is on atenolol. Patient's blood pressure is stable at this time. Patient was on Lasix; however, we have stopped Lasix. 6. Coronary artery disease. Patient is on Plavix, atenolol, and Coumadin. 7. History of deep vein thrombosis (DVT). Patient is on warfarin; however, patient's INR is not therapeutic. At this time we will continue monitoring patient's INR; however, it has decreased compared to yesterday. 8. Schizophrenia. Patient is on Haldol and Geodon. 9. Deep vein thrombosis (DVT) prophylaxis. Patient is on Coumadin. My preceptor for this patient encounter was Dr. Aldo Hong. The preceptor was physically present in the building during the encounter and was fully available as needed. All aspects of the patient interview, examination, medical decision making process, and medical care plan development were reviewed and approved by the preceptor. The preceptor is aware and concurs with the plan as stated in the body of this note and will attest to such by his/her co-signature. Attending Note: I have independently examined this patient and all aspects of the exam and treatment decisions have been discussed with the resident. A member of the hospitalist staff will continue to follow this patient through discharge. FLORENTINO
[2016-08-13] MEDS: WARFARIN SOD 3 MG TAB PO SCH (17:11)
[2016-08-13] MEDS: BENZTROPINE 0.5 MG TAB PO SCH (17:13)
[2016-08-13] MEDS: SIMVASTATIN 20 MG TAB PO SCH (20:38)
--- NOTE | 2016-08-13 21:38 | CR ---
DATE OF CONSULTATION: 08/13/2016 REFERRING PHYSICIAN: Aldo Hong D.O. REASON FOR CONSULTATION: Acute renal failure superimposed on chronic kidney disease. HISTORY OF PRESENT ILLNESS Mr. Csineros is a 66-year-old gentleman with multiple chronic medical problems including diabetes, hypertension, peripheral vascular disease, chronic obstructive pulmonary disease (COPD) and obstructive sleep apnea, history of coronary artery disease with prior myocardial infarction ([place]). He has a right asfxc-wjj-znau amputation and now developed ischemia on left foot. He underwent femoral artery endarterectomy by Dr. Jeffers. The patient has a baseline serum creatinine of about 2.0 mg/dl. Today his creatinine was up to 2.65 and a nephrology consultation was requested. The patient has been receiving intravenous (IV) fluid. PAST MEDICAL AND SURGICAL HISTORY: Significant for 1. Type 2 diabetes. 2. Hypertension. 3. History of coronary artery disease with prior [place]. 4. Peripheral vascular disease. 5. History of deep venous thrombosis (DVT). 6. History of COPD. 7. History of schizoaffective disorder. Past surgical history is significant for right iqwfy-dbo-qjzt amputation, spine infection, cardiac catheterization with stents in 2016. MEDICATIONS: His home medications include Plavix, nitroglycerin, Coumadin, ziprasidone, Lantus insulin, atenolol, benztropine, Breo Ellipta, haloperidol, simvastatin and doxycycline. CURRENT MEDICATIONS IN THE HOSPITAL: - IV fluid with Ringer's lactate 80 mL per hour - Zosyn 3 grams every six hours - Tylenol as needed for pain - atenolol 50 mg daily - benztropine 0.5 mg at bedtime - calcium carbonate 500 mg every four hours as needed for indigestion - Plavix 75 mg daily - Colace 100 mg twice a day - fentanyl titrate 25 mcg as needed for moderate pain, - The patient was also receiving Lasix which has been stopped - haloperidol 5 mg daily - Levemir insulin 30 units at bedtime, and Levemir insulin 35 units in a.m. - Humalog insulin per sliding scale - oxycodone as needed for pain - simvastatin 20 mg at bedtime - Coumadin 6 mg daily - Geodon 80 mg twice a day PERSONAL AND SOCIAL HISTORY The patient denies any recreational drug use or heavy alcohol use. There is no history of tobacco. FAMILY HISTORY: Family history is negative for end-stage renal disease. REVIEW OF SYSTEMS Ears, nose and throat are unremarkable. Cardiovascular system is negative for dyspnea or chest pain. Respiratory system negative for cough or hemoptysis. Gastrointestinal (GI) system negative for nausea, vomiting or diarrhea. Genitourinary () system is negative for dysuria or hematuria. The patient reports no difficulty voiding. Musculoskeletal system is significant for left foot gangrenous changes and he underwent left fifth toe amputation. He also had a left femoral artery endarterectomy. Endocrine system is significant for type 2 diabetes. Hematological system significant for anemia. Psychosocial system significant for schizoaffective disorder. Neurological system is significant for peripheral neuropathy. There is no history of seizures or stroke. PHYSICAL EXAMINATION: GENERAL: This is a morbidly obese gentleman lying in the bed. VITAL SIGNS: His temperature is 98 degrees Fahrenheit, heart rate 72 per minute and respiratory rate 18 per minute. Blood pressure 124/60 mmHg and oxygen saturation 98% on room air. HEENT: Head is atraumatic. Ears, nose and throat are unremarkable. Neck is supple and without jugular venous distention (JVD) or thyroid enlargement. Pupils equal and reactive to light and sclerae are anicteric. HEART/LUNGS: Heart sounds are regular and lungs clear to auscultation. ABDOMEN: Obese and nontender. Bowel sounds are normal. EXTREMITIES: Have right phfie-djj-xfyd amputation. There is no edema on left leg. His left foot is in the dressing. He has a wound vacuum-assisted closure (VAC) dressing present in the left groin area. NEUROLOGIC: He is awake, alert and oriented times three. LABORATORY DATA WBC count 18.7, hemoglobin 9.8 and hematocrit 29.2. Platelets 309. Sodium 138 and potassium 3.9. BUN 36 and creatinine 2.69. Previously his creatinine has been between 1.9 and 2.0. PROBLEMS: 1. Acute renal failure superimposed on chronic kidney disease. Probably related to IV contrast and prerenal azotemia. We will get a renal ultrasound to rule out any possibility of urinary retention or hydronephrosis. We will also get a urinalysis to assess for proteinuria and hematuria. At this point, I will stop the Lasix and continue with IV fluid. His renal function will be checked again tomorrow morning. 2. Leukocytosis. Most likely related to recent surgery and infection. The patient remains on antibiotics. Currently he is receiving ampicillin and sulbactam 3 grams every eight hours. I would suggest to adjust the dose of all antibiotics. His glomerular filtration rate (GFR) is about 30-35 mL per minute. 3. Congestive heart failure. He has history of diastolic congestive heart failure. However at this point, his volume status is very well compensated. No need for diuretics. I will continue the IV fluid for at least next 24 hours. I thank you for involving me in the care of Mr. Cisneros. I will follow him along with you.
[2016-08-14] VITALS (7 sets, daily range): BP systolic 136–156; BP diastolic 64–73
[2016-08-14] MEDS: AMPICILLIN SOD/SULBACTAM SOD 3 GM in D5W MINI-BAG PLUS 100 ML IV SCH ×2 (05:31→12:11)
[2016-08-14] MEDS: SODIUM CHLORIDE 0.9% INJ 10 ML SYR IV SCH ×2 (05:31→17:27)
[2016-08-14] MEDS: PERCOCET 5MG/325MG TAB PO PRN ×3 (05:37→19:57)
[2016-08-14 05:47] LABS: MEAN CORPUSCULAR HEMOGLOBIN 31.3 pg (27.0-33.0); RED CELL DISTRIBUTION WIDTH 15.7 % (11.5-14.5)
[2016-08-14 05:51] LABS: INR 2.02
[2016-08-14 06:21] LABS: CALCIUM LEVEL 6.9 MG/DL (8.8-10.2); CREATININE FOR GFR 2.67 MG/DL (0.70-1.30); GLOMERULAR FILTRATION RATE 25.6 (>49); POTASSIUM SERUM 3.8 MEQ/L (3.5-5.1)
[2016-08-14] MEDS: HumaLOG INSULIN (NovoLOG) PER UNIT SC SCH ×4 (06:31→20:45)
[2016-08-14] MEDS: ZIPRASIDONE 80 MG CAP (GEODON) PO SCH ×2 (08:44→20:53)
[2016-08-14] MEDS: DOCUSATE SODIUM 100 MG CAP PO SCH ×2 (08:44→20:53)
[2016-08-14] MEDS: CLOPIDOGREL 75 MG TAB PO SCH (08:45)
[2016-08-14] MEDS: HALOPERIDOL 5 MG TAB PO SCH (08:45)
[2016-08-14] MEDS: ATENOLOL 50 MG TAB PO SCH (08:45)
[2016-08-14] MEDS: NYSTATIN 100,000 UNITS/GM TOPICAL PWD 15 GM TOP SCH ×2 (08:46→20:54)
[2016-08-14] MEDS: NS 0.45% 1,000 ML IV SCH (08:46)
[2016-08-14] MEDS: LEVEMIR (INSULIN DETEMIR) 1 UNITS/0.01ML SC SCH ×2 (08:46→20:54)
[2016-08-14 10:36] LABS: PHOSPHORUS LEVEL 3.3 MG/DL (2.5-4.9)
[2016-08-14] MEDS ORDERED: CALCIUM GLUCONATE 1,000 MG in D5W MINI-BAG PLUS 100 ML IV ONE (11:00)
[2016-08-14] MEDS: BENZTROPINE 0.5 MG TAB PO SCH (17:26)
[2016-08-14] MEDS: WARFARIN SOD 3 MG TAB PO SCH (17:26)
[2016-08-14] MEDS: SIMVASTATIN 20 MG TAB PO SCH (20:53)
--- NOTE | 2016-08-14 21:14 | IPN ---
DATE: 08/14/2016 SUBJECTIVE: Mr. Cisneros is a 66-year-old male seen and examined at the bedside. Patient denies chest pain, orthopnea, paroxysmal nocturnal dyspnea (PND). Patient also denies nausea, vomiting, diarrhea, or constipation. Patient has mild discomfort in the surgical site, which is in proportion to the surgical area. Patient has wound vacuum-assisted closure (VAC), which is functional. OBJECTIVE: VITAL SIGNS: Temperature 98.1, pulse 69, respiratory rate 18, blood pressure 156/70, pulse oximetry 92 on room air. Total intake from yesterday 3950, total output 1245. GENERAL APPEARANCE: Patient was lying in bed in no acute distress. Patient was awake, alert, and oriented to time, place, and person. HEENT: Normocephalic, atraumatic. Pupils are equal and reactive to light. Oral mucosa is moist. NECK: Soft, supple. No lymphadenopathy. No thyromegaly. HEART: Regular rate and rhythm, normal S1, S2. ABDOMEN: Obese, nontender to palpation. Positive bowel sounds in all quadrants. EXTREMITIES: Patient has lunss-gpz-bzte amputation on the right side. Patient has left lower extremity surgical dressing, which is intact. No drainage or bleeding was noticed. Patient also has a wound VAC on the left inguinal area and is functional. LABORATORY DATA: White blood cells 11, red blood cells 2.48, hemoglobin 7.7, hematocrit 22.8, MCV 92, MCH 31.3, MCHC 34.0, RDW 15.7, platelet count 270. Sodium 138, potassium 3.8, chloride 102, carbon dioxide 29, anion gap 7, BUN 36, creatinine 2.67, glomerular filtration rate 25.6, fasting glucose 90, calcium 6.9. ASSESSMENT AND PLAN: 1. Hypocalcemia. Patient received one dose of TUMS today. We will check the calcium again tomorrow. 2. Acute renal failure superimposed on chronic kidney disease. This is probably secondary to intravenous (IV) contrast and prerenal azotemia. We have consulted Dr. Cm, who recommended to stop the Lasix. Dr. Cm also ordered renal ultrasound to rule out any possibility of urinary retention or hydronephrosis. Also, Dr. Cm has ordered a urinalysis (UA) to assess for proteinuria and hematuria. We will continue to monitor patient for any abnormal symptoms. 3. Leukocytosis. This is possibly secondary to infection versus stress from the surgery; however, today patient's white blood cells has decreased to 11 from yesterday, which was 18.7. Patient is on Unasyn; however, Dr. Cm recommended dose adjustment based on the renal function. 4. Congestive heart failure. This is compensated congestive heart failure; therefore, we will continue patient on IV fluid for abnormal renal function. 5. Insulin-dependent diabetes. We will continue patient on sliding scale. 6. Hypertension. Patient is on atenolol. Patient was on Lasix; however, we have stopped Lasix due to abnormal renal function. Patient's blood pressure is stable at this time. 7. Coronary artery disease. We will continue patient on Coumadin, atenolol, Plavix. 8. History of deep venous thrombosis. Patient is on warfarin, and today patient's INR is therapeutic. We will continue to monitor patient for any abnormal symptoms. Also, we will continue patient on current dose of warfarin 6 mg. 9. Schizophrenia. Will continue patient on Haldol and Geodon. 10. Deep vein thrombosis (DVT) prophylaxis. Patient is on Coumadin, and the level of therapeutic. My preceptor for this patient encounter was Dr. Aldo Hong. The preceptor was physically present in the building during the encounter and was fully available as needed. All aspects of the patient interview, examination, medical decision making process, and medical care plan development were reviewed and approved by the preceptor. The preceptor is aware and concurs with the plan as stated in the body of this note and will attest to such by his/her co-signature. Attending Note: I have independently examined this patient and all aspects of the exam and treatment decisions have been discussed with the resident. A member of the hospitalist staff will continue to follow this patient through discharge. FLORENTINO
[2016-08-15] VITALS (8 sets, daily range): BP systolic 145–178; BP diastolic 67–79
[2016-08-15] MEDS: AMPICILLIN SOD/SULBACTAM SOD 3 GM in D5W MINI-BAG PLUS 100 ML IV SCH ×2 (01:01→15:33)
--- NOTE | 2016-08-15 02:57 | IPN ---
DATE OF SERVICE: 08/14/2016 SUBJECTIVE: Patient was seen and examined at the bedside today in the morning. His renal function is stable. Patient reports that he is going to get blood transfusion today because of a drop in his hemoglobin. He continues to be on wound vacuum-assisted closure (VAC) in the left groin. Otherwise, he is afebrile and hemodynamically stable. REVIEW OF SYSTEMS: Patient denies any fever, chills, rigors, headache, nausea, vomiting, chest pain, shortness of breath, pain abdomen, constipation or diarrhea. He does report mild pain in the left groin at the wound VAC site. Rest of the review of systems is negative. OBJECTIVE: Vital signs: Temperature is 98.5 degrees Fahrenheit. Blood pressure is 150/69. Pulse is 61. Respiratory rate of 18, saturating 92% on room air. Intake and output: Urine output recorded as 1 liter yesterday, 1.7 liters so far today. Weight on the bed scale is 106.3 kg. Patient is in positive fluid balance for the last 4 days. PHYSICAL EXAMINATION: General: Patient is awake, alert, oriented times three lying in bed, no apparent distress. He is morbidly obese. Head and neck exam: Extraocular muscles intact. Pupils equally round and reactive to light. Mucous membranes are moist. Neck is supple. There is no jugular venous distention (JVD). Cardiovascular: S1, S2, regular rate. No murmur, rub or gallop. Respiratory: Chest is clear to auscultation bilaterally. Bilateral equal air entry. No rales or rhonchi. Abdomen: Soft, obese, positive bowel sounds. No ascites. No organomegaly. Extremities: Patient has a right above-knee amputation. Patient has a dressing on the left foot and he has a wound VAC in the left groin as well. Central nervous system: No focal neurological deficit. Power is 5/5 in bilateral upper extremities. Psychiatric: Normal mood and affect. LABORATORY REVIEW: CBC showed a WBC of 11, hemoglobin 7.7, platelets are 207. BMP showed sodium 138, potassium 3.8, chloride 102, bicarbonate 29, BUN 36, creatinine 2.6. It was 2.6 yesterday as well. Calcium is 6.9, phosphorus 3.3, magnesium is 2. IMAGING: A renal ultrasound done yesterday showed chronic medical renal disease, no evidence of hydronephrosis. CURRENT MEDICATIONS: Patient's medications were all reviewed by me. He is on intravenous (IV) Unasyn 3 grams every 8 hours, which was started yesterday. Patient was given a dose of calcium gluconate 1 gram IV because of hypocalcemia. He was on IV normal saline, which was stopped by me today. There is no other change in the medications today as compared with yesterday. ASSESSMENT: 66-year-old male with a history of peripheral vascular disease, status post right above-knee amputation, diabetes, morbidly obese, recent admission for left foot ischemia. Left-sided endarterectomy was done by vascular surgery. Patient currently has a wound vacuum-assisted closure (VAC) in the left groin. Nephrology service following the patient for management of acute kidney injury superimposed on chronic kidney disease. PLAN: 1. Acute kidney injury superimposed on chronic kidney disease. Patient recently got intravenous (IV) contrast. He was on IV diuretics as well. His diuretics were held. He was given IV fluids yesterday. His creatinine has plateaued now. It is 2.6. I am hopeful that by tomorrow his renal function will start improving. I am stopping the IV fluids because the patient is getting a blood transfusion as well and I want to avoid fluid overload. 2. History of congestive heart failure. Patient's volume status is optimized at this time; however, patient is in positive fluid balance for the last 3 days. I would not give diuretics at this time in acute kidney injury; however, I have stopped the fluids. 3. Leukocytosis. Patient is on Unasyn at this time. He is getting 3 grams IV every 8 hours. I would adjust the dose according patient's renal function. Duration of antibiotics is as per primary team. 4. Hypertension. Blood pressure is acceptable at this time. Continue current dose of atenolol 50 mg by mouth daily. 5. Hypocalcemia. Patient got blood transfusions. His calcium is low. I am going to give the patient a dose of calcium gluconate 1 gram IV today. Thank you for involving us in the care of this patient. We shall be happy to follow the patient along with you tomorrow.
[2016-08-15] MEDS: SODIUM CHLORIDE 0.9% INJ 10 ML SYR IV SCH ×2 (05:28→17:26)
[2016-08-15 05:30] LABS: MEAN CORPUSCULAR HEMOGLOBIN 30.7 pg (27.0-33.0); MEAN CORPUSCULAR HGB CONC 33.1 g/dl (32.0-36.5); MEAN CORPUSCULAR VOLUME 92.7 fl (80.0-96.0); RED CELL DISTRIBUTION WIDTH 15.7 % (11.5-14.5); WHITE BLOOD COUNT 8.8 K/mm3 (4.0-10.0)
[2016-08-15 05:46] LABS: INR 1.78
[2016-08-15 05:49] LABS: CALCIUM LEVEL 7.5 MG/DL (8.8-10.2); CREATININE FOR GFR 2.58 MG/DL (0.70-1.30); GLOMERULAR FILTRATION RATE 26.7 (>49); POTASSIUM SERUM 3.9 MEQ/L (3.5-5.1)
[2016-08-15] MEDS ORDERED: MOM 30ML SUSPENSION UDC PO PRN (08:15)
[2016-08-15] MEDS: ZIPRASIDONE 80 MG CAP (GEODON) PO SCH ×2 (08:30→20:25)
[2016-08-15] MEDS: ATENOLOL 50 MG TAB PO SCH (08:30)
[2016-08-15] MEDS: CLOPIDOGREL 75 MG TAB PO SCH (08:31)
[2016-08-15] MEDS: HumaLOG INSULIN (NovoLOG) PER UNIT SC SCH ×4 (08:31→20:01)
[2016-08-15] MEDS: DOCUSATE SODIUM 100 MG CAP PO SCH ×2 (08:31→20:24)
[2016-08-15] MEDS: HALOPERIDOL 5 MG TAB PO SCH (08:31)
[2016-08-15] MEDS: LEVEMIR (INSULIN DETEMIR) 1 UNITS/0.01ML SC SCH ×2 (08:32→20:25)
[2016-08-15] MEDS: NYSTATIN 100,000 UNITS/GM TOPICAL PWD 15 GM TOP SCH ×2 (08:32→20:25)
[2016-08-15] MEDS: PERCOCET 5MG/325MG TAB PO PRN (10:19)
--- NOTE | 2016-08-15 11:30 | IPN ---
DATE: 08/15/2016 66-year-old gentleman seen at bedside. No overnight issues. He is resting comfortably. No chest pain, nausea, vomiting, no abdominal pain. OBJECTIVE: Temperature is 98.2, pulse 65 and regular, respiratory rate is 18, blood pressure 145/67, SpO2 is 94% on room air. GENERAL: The patient appears to be in no acute distress. He is alert, oriented. HEENT: Unremarkable. LUNGS: Clear. HEART: Regular rate and rhythm. ABDOMEN: Soft. EXTREMITIES: No edema. No calf tenderness on the left. He does have a right below knee amputation (BKA). LABORATORY DATA: White count is 8.8, hemoglobin is 7.9, platelets 195,000. Sodium 139, potassium 3.9, chloride 103, bicarb 30, anion gap 6, BUN is 38, creatinine 2.58, glucose 152. ASSESSMENT/PLAN: 1. Hypocalcemia, commented on by the resident yesterday. I will again go ahead and give him an infusion of calcium gluconate times one today. Will continue to follow. 2. Acute renal failure superimposed on chronic kidney disease (CKD). Appreciate nephrology's input. 3. Leukocytosis. Improved. He does continue on Unasyn for the time being. 4. Congestive heart failure (CHF). He is on no IV fluids at this time. Will continue to monitor his intake and output carefully watching his fluid status. 5. Insulin dependent diabetes. Continue with fingersticks and sliding scale adjustments. 6. Hypertension. Continue to follow. 7. Coronary artery disease on Coumadin, atenolol and Plavix. 8. History of deep vein thrombosis (DVT). INR 1.78. Will need to make Coumadin adjustment. 9. Schizophrenia. Stable on Haldol and Geodon. 10. History of deep vein thrombosis (DVT). Continue with DVT prophylaxis. Currently on Coumadin. Will need to make a dose adjustment and check his INR again tomorrow. DISPOSITION: Will continue to follow along for medical management with Dr. Jeffers as well as nephrology, Dr. Cm, Dr. Carter from podiatry, and Dr. Gaona from infectious disease.
[2016-08-15] MEDS ORDERED: CALCIUM GLUCONATE 1,000 MG in D5W MINI-BAG PLUS 100 ML IV ONE (12:00)
[2016-08-15] MEDS: NS 1,000 ML IV SCH (14:18)
[2016-08-15] MEDS ORDERED: WARFARIN SOD 3 MG TAB PO ONE (17:00)
[2016-08-15] MEDS ORDERED: amLODIPine 5 MG TAB PO ONE (18:00)
[2016-08-15] MEDS: WARFARIN SOD 3 MG TAB PO SCH (18:08)
[2016-08-15] MEDS: BENZTROPINE 0.5 MG TAB PO SCH (18:08)
[2016-08-15] MEDS: SIMVASTATIN 20 MG TAB PO SCH (20:25)
--- NOTE | 2016-08-15 22:20 | IPN ---
DATE: 08/15/2016 SUBJECTIVE: The patient was seen and examined at the bedside today morning. He denies any active complaints. Patient reports that his hemoglobin level is still down. He is getting more blood transfusion today. His renal function is stable. His creatinine is actually slightly down to 2.5 today. REVIEW OF SYSTEMS: Patient denies any fevers, chills, rigors, headache, nausea, vomiting, chest pain, shortness of breath. He reports dry mouth and he is feeling thirsty. He denies any pain in abdomen or constipation. The rest of the review of systems is negative. OBJECTIVE: VITAL SIGNS: Temperature 97.7 degrees Fahrenheit, blood pressure 157/71, pulse 55, respiratory rate 18, saturating 94% on room air. INTAKE/OUTPUT: Urine output recorded is 2.6 liters yesterday, 3.5 liters so far today since overnight. Weight in the bed scale is 106.9 kg. PHYSICAL EXAMINATION: GENERAL: The patient is awake, alert, oriented times three, laying in bed, in no apparent distress. He is morbidly obese. HEAD and NECK EXAM: Extraocular muscles intact. Pupils equally round and reactive to light. Mucous membranes are dry. Neck is supple, there is no jugular venous distention (JVD). CARDIOVASCULAR: S1, S2, regular rate. No murmur, rub, or gallop. RESPIRATORY: Chest is clear to auscultation bilaterally. Bilaterally equal air entry. No rales or rhonchi. ABDOMEN: Soft, obese. Positive bowel sounds. No ascites. No organomegaly. EXTREMITIES: Patient has right above-knee amputation. Patient has a dressing on the left foot. He has a wound vacuum assisted closure (VAC) in the left groin. CENTRAL NERVOUS SYSTEM (SUBSTANCE ADDICTION COORDINATOR): No focal neurological deficit. Power is 5/5 in bilateral upper extremities. LABORATORY REVIEW: CBC showed WBC 8.8, hemoglobin 7.9, platelets 195. BMP showed sodium 139, potassium 3.9, chloride 103, bicarbonate 30, BUN 38, creatinine 2.5, it was 2.6 yesterday, calcium 7.5. CURRENT MEDICATIONS: The patient's medications were all reviewed by me. His atenolol has been decreased to 25 mg by mouth daily. Patient was given a dose of calcium gluconate 1 gram IV times one dose and he has been started on normal saline 75 mL/hour starting today afternoon. There is no other change in the medications today as compared with yesterday. ASSESSMENT: 66-year-old male with past medical history of peripheral vascular disease status post right above-knee amputation, diabetes, morbidly obese, recently admitted for left foot ischemia status post left-sided endarterectomy. Patient currently has a wound vacuum assisted closure (VAC) in the left groin. Nephrology service following the patient for management of acute kidney injury superimposed on chronic kidney disease. PLAN: 1. Acute kidney injury superimposed on chronic kidney disease. Patient recently got IV contrast and he was on diuretics as well. His diuretics were held. He was given gentle hydration. His creatinine is down to 2.5 today. However, patient is feeling thirsty, his mucous membranes are dry, and he is dropping hemoglobin as well. I have started the patient on gentle normal saline at 75 mL/hour. 2. Acute blood loss anemia. Patient's hemoglobin is still down. He is getting more packed red blood cell (PRBC) transfusion. Continue to transfuse as needed for hemoglobin below 8. 3. Leukocytosis. Patient is on Unasyn at this time. White blood cell is significantly better. His Unasyn dose was decreased to 3 grams every 12 hours because of acute kidney injury. 4. Hypertension. Blood pressure is acceptable at this time. His atenolol dose has been decreased to 25 mg by mouth daily because of bradycardia. Patient was started on amlodipine 5 mg by mouth daily. Continue the current regimen at this time. 5. Hypocalcemia. Patient is hypocalcemic because of multiple blood transfusions. I have given the patient another dose of calcium gluconate 1 gram IV. Continue to monitor the calcium and replete as needed.
[2016-08-16] MEDS: AMPICILLIN SOD/SULBACTAM SOD 3 GM in D5W MINI-BAG PLUS 100 ML IV SCH ×2 (00:37→11:54)
[2016-08-16 03:29] VITALS: BP 155/70
[2016-08-16] MEDS: SODIUM CHLORIDE 0.9% INJ 10 ML SYR IV SCH ×2 (05:15→16:50)
[2016-08-16] MEDS: NS 1,000 ML IV SCH ×2 (05:16→17:08)
[2016-08-16] MEDS: PERCOCET 5MG/325MG TAB PO PRN (05:22)
[2016-08-16 05:41] LABS: MEAN CORPUSCULAR HEMOGLOBIN 30.5 pg (27.0-33.0); MEAN CORPUSCULAR VOLUME 92.3 fl (80.0-96.0); RED CELL DISTRIBUTION WIDTH 15.8 % (11.5-14.5); WHITE BLOOD COUNT 8.7 K/mm3 (4.0-10.0)
[2016-08-16 05:48] LABS: INR 1.65
[2016-08-16 06:02] LABS: CALCIUM LEVEL 7.8 MG/DL (8.8-10.2); CREATININE FOR GFR 2.16 MG/DL (0.70-1.30); GLOMERULAR FILTRATION RATE 32.7 (>49)
[2016-08-16 08:00] VITALS: BP 127/56
[2016-08-16] MEDS: ZIPRASIDONE 80 MG CAP (GEODON) PO SCH ×2 (08:40→20:44)
[2016-08-16] MEDS: ATENOLOL 25 MG TAB PO SCH (08:41)
[2016-08-16] MEDS: HALOPERIDOL 5 MG TAB PO SCH (08:42)
[2016-08-16] MEDS: DOCUSATE SODIUM 100 MG CAP PO SCH ×2 (08:42→20:44)
[2016-08-16] MEDS: CLOPIDOGREL 75 MG TAB PO SCH (08:42)
[2016-08-16] MEDS: LEVEMIR (INSULIN DETEMIR) 1 UNITS/0.01ML SC SCH ×2 (08:42→20:50)
[2016-08-16] MEDS: HumaLOG INSULIN (NovoLOG) PER UNIT SC SCH ×4 (08:43→20:48)
[2016-08-16] MEDS: NYSTATIN 100,000 UNITS/GM TOPICAL PWD 15 GM TOP SCH ×2 (08:43→20:50)
[2016-08-16] MEDS ORDERED: CALCIUM GLUCONATE 1,000 MG in D5W MINI-BAG PLUS 100 ML IV ONE (10:00)
--- NOTE | 2016-08-16 10:18 | IPN ---
DATE: 08/16/2016 Sathish is seen while covering for the hospitalist today. No real change in clinical status. No chest pain or shortness of breath. PHYSICAL EXAMINATION: 127/56, pulse 56, afebrile. 97% oxygen saturation on room air. He is alert, conversant. LUNGS: Clear. HEART: Regular rhythm. ABDOMEN: Soft, nontender. EXTREMITIES: Right below the knee amputation. LABORATORY DATA: Hemoglobin is up to 10.3, this is after transfusion yesterday. Creatinine is 2.1, potassium is 4.0. Blood sugars are in the 100 to 200 range. IMPRESSION: 1. Diabetes. Fingersticks and coverage, sliding scale, has led to good control of his blood sugars. 2. Leukocytosis. Continue Unasyn. 3. Congestive heart failure (CHF). Seems compensated on examination. 4. Hypertension. Blood pressure is under good control. 5. Coronary artery disease, stable. No anginal symptoms. 6. Chronic kidney disease with acute renal failure. Per nephrology service.
[2016-08-16 10:26] LABS: ALBUMIN 1.6 GM/DL (3.2-5.2)
[2016-08-16 12:00] VITALS: BP 180/72
[2016-08-16 16:00] VITALS: BP 126/52
[2016-08-16] MEDS: BENZTROPINE 0.5 MG TAB PO SCH (17:07)
[2016-08-16] MEDS: WARFARIN SOD 3 MG TAB PO SCH (17:07)
[2016-08-16 20:00] VITALS: BP 152/82; PULSE 57
--- NOTE | 2016-08-16 20:25 | IPN ---
DATE: 08/16/2016 SUBJECTIVE: The patient was seen and examined at the bedside today in the morning. Patient got packed red blood cell (PRBC) transfusions yesterday. His hemoglobin is better now, it is 10.3 at this time. He was also started on IV fluid hydration yesterday. His creatinine is better than yesterday, it is down from 2.5 to 2.1 today. REVIEW OF SYSTEMS: Patient denies any fevers, chills, rigors, headache, nausea, vomiting, chest pain, shortness of breath, pain in abdomen, constipation, or diarrhea. He does report some back pain. The rest of the review of systems is negative. OBJECTIVE: VITAL SIGNS: Temperature 97.7 degrees Fahrenheit, blood pressure 127/56, pulse 56, respiratory rate 18, saturating 98% on room air. INTAKE and OUTPUT: Urine output recorded is 5 liters yesterday, 2.8 liters so far today since overnight. Weight in the bed scale is 106.6 kg. PHYSICAL EXAMINATION: GENERAL: The patient is awake, alert, oriented times three, laying in bed, in no apparent distress. He is morbidly obese. HEAD and NECK EXAM: Extraocular muscles intact. Pupils equally round and reactive to light. Mucous membranes are moist today. Neck is supple, there is no jugular venous distention (JVD). CARDIOVASCULAR: S1, S2, regular rate. No murmur, rub, or gallop. RESPIRATORY: Chest is clear to auscultation bilaterally. Bilaterally equal air entry. No rales or rhonchi. ABDOMEN: Soft, obese. Positive bowel sounds. No ascites. No organomegaly. EXTREMITIES: Patient has right above-knee amputation. He has a dressing on the left foot and he has a wound vacuum assisted closure (VAC) in the left groin. CENTRAL NERVOUS SYSTEM (LEGISLATORS): No focal neurological deficit. Power is 5/5 in bilateral upper extremities. LABORATORY REVIEW: CBC showed WBC 8.7, hemoglobin 10.3, platelets 209. BMP showed sodium 142, potassium 4, chloride 108, bicarbonate 27, BUN 32, creatinine 2.1, it was 2.5 yesterday, calcium 7.8, albumin 1.6. CURRENT MEDICATIONS: The patient's medications were all reviewed by me. He continues to be on IV normal saline at 75 mL/hour. He was given a dose of calcium gluconate 1 gram IV times one dose. There is no other change in the medications today as compared with yesterday. ASSESSMENT: 66-year-old male with past medical history of peripheral vascular disease status post right above-knee amputation, diabetes, morbidly obese, recently admitted for left foot ischemia status post left-sided endarterectomy. He has a wound vacuum assisted closure (VAC) in the left groin at this time. Nephrology service following the patient for management of acute kidney injury superimposed on chronic kidney disease. PLAN: 1. Acute kidney injury. Patient's creatinine got significantly better after starting IV fluid hydration yesterday, creatinine is down to 2.1. I would continue the IV fluids for another day and reevaluate the need for IV fluids tomorrow morning. 2. Acute blood loss anemia. Patient got packed red blood cell (PRBC) transfusion yesterday. Hemoglobin is above 10. Continue to monitor the hemoglobin and transfuse as needed for hemoglobin drop below 8. 3. Leukocytosis. His white cell count is significantly better. Continue Unasyn 3 grams IV every 12 hours for now. 4. Hypocalcemia. Patient's albumin is also low. I have given him 1 gram of IV calcium gluconate. I will check ionized calcium level tomorrow morning. 5. Hypertension. Blood pressure is acceptable at this time. Continue current dose of atenolol 25 mg by mouth daily. Dose was decreased because of bradycardia. If his blood pressure goes up, then amlodipine can be added to the regimen.
[2016-08-16] MEDS: SIMVASTATIN 20 MG TAB PO SCH (20:44)
[2016-08-16] MEDS: ACETAMINOPHEN TAB 650MG DOSE (2X325MG) PO PRN (20:57)
[2016-08-17] VITALS (7 sets, daily range): BP systolic 128–174; BP diastolic 68–84; PULSE 50
[2016-08-17] MEDS: AMPICILLIN SOD/SULBACTAM SOD 3 GM in D5W MINI-BAG PLUS 100 ML IV SCH ×2 (01:37→17:25)
[2016-08-17] MEDS: NS 1,000 ML IV SCH (06:12)
[2016-08-17] MEDS: SODIUM CHLORIDE 0.9% INJ 10 ML SYR IV SCH ×2 (06:12→17:27)
[2016-08-17 06:33] LABS: MEAN CORPUSCULAR HEMOGLOBIN 30.4 pg (27.0-33.0); MEAN CORPUSCULAR HGB CONC 33.1 g/dl (32.0-36.5); MEAN CORPUSCULAR VOLUME 91.7 fl (80.0-96.0); RED CELL DISTRIBUTION WIDTH 15.6 % (11.5-14.5)
[2016-08-17 06:49] LABS: CREATININE FOR GFR 1.84 MG/DL (0.70-1.30); GLOMERULAR FILTRATION RATE 39.4 (>49); POTASSIUM SERUM 4.1 MEQ/L (3.5-5.1)
[2016-08-17] MEDS: HumaLOG INSULIN (NovoLOG) PER UNIT SC SCH ×4 (07:30→19:56)
[2016-08-17] MEDS: DOCUSATE SODIUM 100 MG CAP PO SCH ×2 (08:12→19:55)
[2016-08-17] MEDS: HALOPERIDOL 5 MG TAB PO SCH (08:12)
[2016-08-17] MEDS: CLOPIDOGREL 75 MG TAB PO SCH (08:12)
[2016-08-17] MEDS: ZIPRASIDONE 80 MG CAP (GEODON) PO SCH ×2 (08:12→21:00)
[2016-08-17] MEDS: LEVEMIR (INSULIN DETEMIR) 1 UNITS/0.01ML SC SCH ×2 (08:13→19:57)
[2016-08-17] MEDS: ATENOLOL 25 MG TAB PO SCH (08:13)
[2016-08-17] MEDS: NYSTATIN 100,000 UNITS/GM TOPICAL PWD 15 GM TOP SCH ×2 (08:13→21:00)
--- NOTE | 2016-08-17 12:40 | IPN ---
DATE OF SERVICE: 08/17/2016 SUBJECTIVE: The patient was seen and examined at the bedside today in the morning. He was actually sitting in the wheelchair today. He feels much better. His hemoglobin is stable. His renal function continues to improve. His creatinine is down to 1.8 today. REVIEW OF SYSTEMS: The patient denies any fevers, chills, rigors, headache, nausea, vomiting, chest pain, shortness of breath, pain abdomen, constipation, or diarrhea. The rest of review of systems is negative. OBJECTIVE: VITAL SIGNS: Temperature 97.8 degrees Fahrenheit, blood pressure 147/69, pulse 59, respiratory rate 18, saturating 97% on room air. INTAKE and OUTPUT: Urine output recorded is 4.5 liters yesterday, 2 liters so far today since overnight. Weight is 105.2 kg. PHYSICAL EXAMINATION: GENERAL: The patient is awake, alert, oriented times three, sitting in the wheelchair at this time, no apparent distress. The patient is morbidly obese. HEAD AND NECK EXAMINATION: Extraocular muscles intact. Pupils equally round and reactive to light. Mucous membranes are moist. Neck is supple. There is no jugular venous distention (JVD). CARDIOVASCULAR: S1, S2, regular rate. No murmur, rub, and gallop. RESPIRATORY: Chest is clear to auscultation bilaterally. Bilateral equal air entry. No rales or rhonchi. ABDOMEN: Soft, obese. Positive bowel sounds. No ascites. No organomegaly. EXTREMITIES: The patient has a right above-knee amputation. He has a dressing on the left foot because of left foot ulcer, and he has a wound vacuum-assisted closure (VAC) in the left groin. CENTRAL NERVOUS SYSTEM (PERCOLATOR OPERATOR): No focal neurological deficit. Power is 5/5 in all extremities. LABORATORY REVIEW: CBC showed a WBC of 9, hemoglobin 10.6, platelets are 235. BMP showed sodium 142, potassium 4.1, chloride 107, bicarbonate 29, BUN 26, creatinine 1.8, calcium 8, ionized calcium 4.8. CURRENT MEDICATIONS: The patient's current inpatient medications were reviewed. I have stopped his intravenous (IV) fluids at this time. ASSESSMENT: A 66-year-old male with a past medical history of peripheral vascular disease status post right above-knee amputation, diabetes, morbid obesity, recently admitted for left foot ischemia status post left-sided endarterectomy. He has a wound VAC in the left groin. Nephrology service following the patient for management of acute kidney injury superimposed on chronic kidney disease. PLAN: 1. Acute kidney injury. The patient's creatinine is significantly getting better. It is down to 1.8. He was given IV fluids for 2 days. I am going to hold the IV fluids right now and continue to encourage the oral hydration. 2. Acute blood loss anemia. The patient was given multiple blood transfusions. His hemoglobin is stable at 10.6. Continue to monitor for now. 3. Left foot infection. The patient is currently on IV Unasyn. I have increased the dose to 3 gram IV every 8 hours because his renal function is improving. If his renal function improves further, then dose will be increased to every 6 hours. 4. Hypertension. Blood pressure is acceptable at this time. Continue current dose of atenolol. 5. Hypocalcemia. Calcium is improved after IV calcium gluconate. Ionized calcium is 4.8, which is acceptable at this time.
[2016-08-17] MEDS: WARFARIN SOD 3 MG TAB PO SCH (17:25)
[2016-08-17] MEDS: BENZTROPINE 0.5 MG TAB PO SCH (17:26)
--- NOTE | 2016-08-17 18:15 | IPN ---
DATE: 08/17/2016 Sathish is doing very well. He had femoral angioplasty done last week and he states that his leg feels much better. Temperature is 98. He had a T-max of 100.1 on 08/15. He denies any nausea, vomiting, diarrhea, abdominal pain, fever or chills. Postoperative his white count went up to 18.7 but has improved since then. White count today is nine, hemoglobin 10.6, hematocrit 32.1, platelets 235. Sodium 142, potassium 4.1, chloride 107, bicarb 29, BUN 26, creatinine 1.8, GFR is 39, and glucose 95, calcium 8, albumin 1.6. On physical exam, temperature is 98, pulse 64, respirations 18, blood pressure 152/77, O2 sat 95% on room air. Heart, normal S1-S2. No murmurs. Lungs are clear. No wheezes, rales, or rhonchi. Abdomen is soft, obese, nontender. Extremities, left thigh ecchymosis and bruising with a dressing. There is a clot in the drain. IMPRESSION: 1. Polymicrobial abscess with acute osteomyelitis of the left foot status post amputation. There is no residual bone infection according to Dr. Carter. Culture positive for MSSA group C strep and bacteroides fragilis. Patient on intravenous (IV) unison for the past 2 weeks. 2. Severe peripheral vascular disease status post angioplasty. 3. Insulin-dependent diabetes. 4. Acute renal failure post surgery doing much better on chronic kidney disease, doing much better. PLAN: Continue IV Unasyn until the patient is discharged once discharged he could be switched to by mouth Augmentin 875 mg by mouth twice a day. The patient currently has dry gangrene but no residual bone infection.
[2016-08-17] MEDS: SIMVASTATIN 20 MG TAB PO SCH (19:55)
[2016-08-17] MEDS: PERCOCET 5MG/325MG TAB PO PRN (19:56)
[2016-08-18] MEDS: AMPICILLIN SOD/SULBACTAM SOD 3 GM in D5W MINI-BAG PLUS 100 ML IV SCH ×3 (01:42→17:02)
[2016-08-18] MEDS: CALCIUM CARBONATE 500 MG CHEW U/D PO PRN (05:05)
[2016-08-18] MEDS: SODIUM CHLORIDE 0.9% INJ 10 ML SYR IV SCH ×2 (05:05→17:04)
[2016-08-18 06:00] VITALS: BP 135/65
[2016-08-18] MEDS: LEVEMIR (INSULIN DETEMIR) 1 UNITS/0.01ML SC SCH ×2 (08:59→21:03)
[2016-08-18] MEDS: ATENOLOL 25 MG TAB PO SCH (09:00)
[2016-08-18] MEDS: NYSTATIN 100,000 UNITS/GM TOPICAL PWD 15 GM TOP SCH ×2 (09:00→21:00)
[2016-08-18] MEDS: HumaLOG INSULIN (NovoLOG) PER UNIT SC SCH ×4 (09:00→20:55)
[2016-08-18] MEDS: DOCUSATE SODIUM 100 MG CAP PO SCH ×2 (09:01→21:03)
[2016-08-18] MEDS: CLOPIDOGREL 75 MG TAB PO SCH (09:01)
[2016-08-18] MEDS: HALOPERIDOL 5 MG TAB PO SCH (09:01)
[2016-08-18] MEDS: ZIPRASIDONE 80 MG CAP (GEODON) PO SCH ×2 (09:01→21:03)
[2016-08-18 09:40] LABS: MEAN CORPUSCULAR HEMOGLOBIN 30.9 pg (27.0-33.0); MEAN CORPUSCULAR HGB CONC 33.5 g/dl (32.0-36.5); MEAN CORPUSCULAR VOLUME 92.4 fl (80.0-96.0); RED CELL DISTRIBUTION WIDTH 15.3 % (11.5-14.5); WHITE BLOOD COUNT 7.9 K/mm3 (4.0-10.0)
[2016-08-18 09:47] LABS: INR 1.96
[2016-08-18 09:50] LABS: CREATININE FOR GFR 1.89 MG/DL (0.70-1.30); GLOMERULAR FILTRATION RATE 38.2 (>49); POTASSIUM SERUM 4.4 MEQ/L (3.5-5.1)
--- NOTE | 2016-08-18 11:44 | IPNPDOC ---
Subjective Date Seen The patient was seen on 08/18/16. Subjective Chief Complaint/HPI The patient is a 66-year-old male admitted with a reason for visit of Osteomyelitis, Left Femoral Artery Occlusion. Events since last encounter no complaints this morning, leg sensation better , can move the toes better overall he feels the foot is getting better, no fever or chills, no chest pain or shortness of breath , no abdominal pain , nausea or vomiting or diarrhea Objective Physical Examination General Exam: Positive: Alert, Cooperative, No Acute Distress Eye Exam: Positive: PERRLA, Conjunctiva & lids normal, EOMI, Negative: Sclera icteric ENT Exam: Positive: Atraumatic, Mucous membr. moist/pink, Pharynx Normal Neck Exam: Positive: Supple, Negative: JVD, thyromegaly Chest Exam: Positive: Clear to auscultation, Normal air movement Heart Exam: Positive: Rate Normal, Regular Rhythm, Normal S1, Normal S2, Negative: Murmurs, Rubs Abdomen Exam: Positive: Normal bowel sounds, Soft, Negative: Tenderness, Hepatospenomegaly Extremity Exam: Positive: Tenderness, Other (pulses not appreciated. ) Skin Exam: Positive: Other skin issue (chronic venous stasis dermatitis, left foot dry gangrene) Assessment /Plan Problems (1) Cellulitis and abscess of foot Problem Text: Polymicrobial abscess with acute osteomyelitis of the left foot status post amputation. There is no residual bone infection according to Dr. Carter. Culture positive for MSSA group C strep and bacteroides fragilis. Patient on intravenous (IV) unison for the past 2 weeks. (2) Osteomyelitis Status: Acute Problem Text: on unasyn patien to be changed to augmentin on discharge (3) Gangrene of foot Status: Acute Problem Text: dry gangrene . on unasyn (4) PAD (peripheral artery disease) Status: Chronic Problem Text: s/p left femoral endarterectomy on 08/13 planned for OR today for debridement to evaluate blood flow. Has right below knee amputation (5) Poorly controlled diabetes mellitus Status: Chronic Problem Text: most of the blood glucose levels are less than 200 will continue the same dosage on insulin . (6) Diabetic retinopathy Status: Chronic (7) CKD (chronic kidney disease) Status: Chronic Problem Text: had an Frantz on ckd now cratinine almost back to baseline. Plan/VTE VTE Prophylaxis Ordered?: Yes VS, I&O, 24H, Fishbone Vital Signs/I&O Vital Signs Date Time Temp Pulse Resp B/P (MAP) Pulse Ox O2 Delivery O2 Flow Rate FiO2 08/18/16 09:00 52 135/65 08/18/16 06:00 96.8 18 94 Room Air 08/12/16 19:35 2 08/12/16 18:40 100 I&O- Last 24 Hours up to 6 AM 08/18/16 06:00 Intake Total 2070 ml Output Total 2740 ml Balance -670 ml Laboratory Data 24H LABS Laboratory Tests 2 08/17/16 11:40: Bedside Glucose (Misc Panel) 196H 08/17/16 16:52: Bedside Glucose (Misc Panel) 187H 08/17/16 19:39: Bedside Glucose (Misc Panel) 180H 08/18/16 09:22: Prothrombin Time 22.4H, Prothromb Time International Ratio 1.96, Anion Gap 7L, Glomerular Filtration Rate 38.2L, Blood Urea Nitrogen 29H, Creatinine 1.89H, Sodium Level 138, Potassium Level 4.4, Chloride Level 103, Carbon Dioxide Level 28, Calcium Level 8.0L CBC/BMP Laboratory Tests 08/18/16 09:22 Red Blood Count 3.53 L, Mean Corpuscular Volume 92.4, Mean Corpuscular Hemoglobin 30.9, Mean Corpuscular Hemoglobin Concent 33.5, Red Cell Distribution Width 15.3 H, Calcium Level 8.0 L HAN MELGAR MD August 18, 2016 11:44
--- NOTE | 2016-08-18 12:30 | IPN ---
DATE: 08/18/2016 SUBJECTIVE: The patient was seen and examined in the bedside today in the morning. He feels much better. He was sitting in the bed. His renal function is stable. He is hemodynamically stable. REVIEW OF SYSTEMS: The patient denies any fevers, chills, rigors, headache, nausea, vomiting, chest pain, shortness of breath, pain in the abdomen, constipation or diarrhea. The rest of the review of systems is negative. OBJECTIVE: VITAL SIGNS: Temperature 96.8 degrees Fahrenheit, blood pressure 135/65, pulse 52, respiratory rate of 18, saturating 94% in room air. Intake and output: His urine output recorded is 3.4 liters yesterday, 1liter so far today since overnight. GENERAL: The patient is awake, alert, oriented times three sitting in the bed in no apparent distress. HEAD AND NECK EXAM: Extraocular muscles intact. Pupils equal, round, and reactive to light. Mucous membranes are moist. Neck is supple. There is no jugular venous distention. Cardiovascular: S1, S2 regular rate. No murmur, rub or gallop. RESPIRATORY: Chest is clear to auscultation bilaterally. Bilaterally clear air entry. No rales or rhonchi. ABDOMEN: Obese, soft, positive bowel sounds. Nontender. No ascites. No organomegaly. EXTREMITIES: The patient has a right above knee amputation and he has a wound vac in the left groin and he has a dressing on the left foot. INDUSTRIAL ENGINEERING ANALYST: No focal neurological deficit. Power is 5/5 in all extremities. LAB REVIEW: CBC showed a WBC 7.9, hemoglobin 9.9, platelets 236. BMP shows sodium 138, potassium 4.4, chloride 103, bicarbonate 28, BUN 29, creatinine 1.89, it was 1.84 yesterday. Calcium 8. CURRENT MEDICATIONS: The patient's current inpatient medications are all reviewed by me. He continues to be on IV Zosyn, 3 gram IV every 8 hours. There is no other change in the medications today as compared with yesterday. ASSESSMENT: 66-year-old male with the past medical history of peripheral vascular disease status post right above knee amputation, diabetes, morbid obesity recently admitted for left foot ischemia, dry gangrene and osteomyelitis status post left foot surgery and left-sided endarterectomy. [employer] Press Operator service following the patient for management of the acute kidney injury superimposed on chronic kidney disease. PLAN: 1. Acute kidney injury: The patient's creatinine continue to improve. It is down to 1.8. IV fluids are on hold. Continue to encourage oral hydration. 2. Acute blood loss anemia: The patient's hemoglobin is stable at 10.9 at this time. Continue to monitor for now. No need for blood transfusion at this time. 3. Left foot infection status post left foot surgery: The patient is currently on IV Unasyn 3 gram IV every 8 hours. We appreciate infectious disease recommendations. They recommended continuous IV antibiotics until patient is admitted and then he will be switched to oral Augmentin. 4. Hypertension: Blood pressure is acceptable at this time. Continue current dose of atenolol. 5. History of congestive heart failure: The patient's volume status is optimized at this time. His diuretics are on hold. No need of diuretics at this time. The patient's renal function has improved close to his baseline. Nephrology service will sign off at this moment. Please call nephrology service for any help in the management of this patient in the future.
[2016-08-18 14:00] VITALS: BP 163/67
[2016-08-18] MEDS: PERCOCET 5MG/325MG TAB PO PRN (16:17)
[2016-08-18] MEDS: WARFARIN SOD 3 MG TAB PO SCH (17:02)
[2016-08-18] MEDS: BENZTROPINE 0.5 MG TAB PO SCH (17:02)
[2016-08-18] MEDS: SIMVASTATIN 20 MG TAB PO SCH (21:03)
[2016-08-18 22:00] VITALS: BP 150/71
[2016-08-19] MEDS: AMPICILLIN SOD/SULBACTAM SOD 3 GM in D5W MINI-BAG PLUS 100 ML IV SCH ×3 (01:52→17:22)
[2016-08-19] MEDS: PERCOCET 5MG/325MG TAB PO PRN ×3 (01:53→22:45)
[2016-08-19] MEDS: SODIUM CHLORIDE 0.9% INJ 10 ML SYR IV SCH ×2 (05:27→17:22)
[2016-08-19 06:00] VITALS: BP 159/73
[2016-08-19] MEDS: CLOPIDOGREL 75 MG TAB PO SCH (08:13)
[2016-08-19] MEDS: DOCUSATE SODIUM 100 MG CAP PO SCH ×2 (08:13→20:33)
[2016-08-19] MEDS: ATENOLOL 25 MG TAB PO SCH (08:13)
[2016-08-19] MEDS: HALOPERIDOL 5 MG TAB PO SCH (08:14)
[2016-08-19] MEDS: ZIPRASIDONE 80 MG CAP (GEODON) PO SCH ×2 (08:15→20:33)
[2016-08-19] MEDS: LEVEMIR (INSULIN DETEMIR) 1 UNITS/0.01ML SC SCH ×2 (08:16→20:33)
[2016-08-19] MEDS: HumaLOG INSULIN (NovoLOG) PER UNIT SC SCH ×4 (08:17→21:00)
[2016-08-19] MEDS: NYSTATIN 100,000 UNITS/GM TOPICAL PWD 15 GM TOP SCH ×2 (09:00→21:00)
--- NOTE | 2016-08-19 10:24 | IPNPDOC ---
Subjective Date Seen The patient was seen on 08/19/16. Subjective Chief Complaint/HPI The patient is a 66-year-old male admitted with a reason for visit of Osteomyelitis, Left Femoral Artery Occlusion. Events since last encounter no complaints this morning. planned for OR tomorrow for debridement of dry gangrenous toe and shaving of exposed bone. no fever or chills no chest pain or SOB. no abdominal pain nausea or vomiting. Objective Physical Examination General Exam: Positive: Alert, Cooperative, No Acute Distress Eye Exam: Positive: PERRLA, Conjunctiva & lids normal, EOMI, Negative: Sclera icteric ENT Exam: Positive: Atraumatic, Mucous membr. moist/pink, Pharynx Normal Neck Exam: Positive: Supple, Negative: JVD, thyromegaly Chest Exam: Positive: Clear to auscultation, Normal air movement Heart Exam: Positive: Rate Normal, Regular Rhythm, Normal S1, Normal S2, Negative: Murmurs, Rubs Abdomen Exam: Positive: Normal bowel sounds, Soft, Negative: Tenderness, Hepatospenomegaly Extremity Exam: Positive: Tenderness, Other (pulses not appreciated. ) Skin Exam: Positive: Other skin issue (chronic venous stasis dermatitis, left toe dry gangrene) Assessment /Plan Problems (1) Cellulitis and abscess of foot Problem Text: Polymicrobial abscess with acute osteomyelitis of the left foot status post amputation. There is no residual bone infection according to Dr. Carter. Culture positive for MSSA group C strep and bacteroides fragilis. Patient on intravenous (IV) unasyn day 17 .plan is to switch to oral Augmentin on discharge (2) Osteomyelitis Status: Acute Problem Text: on unasyn patien to be changed to augmentin on discharge (3) Gangrene of foot Status: Acute Problem Text: dry gangrene . planned for OR tomorrow for debridement (4) PAD (peripheral artery disease) Status: Chronic Problem Text: s/p left femoral endarterectomy on 08/13 Has right below knee amputation (5) Poorly controlled diabetes mellitus Status: Chronic Problem Text: most of the blood glucose levels are less than 200 will continue the same dosage on insulin . (6) Diabetic retinopathy Status: Chronic (7) CKD (chronic kidney disease) Status: Chronic Problem Text: had an Frantz on ckd now cratinine almost back to baseline. Plan/VTE VTE Prophylaxis Ordered?: Yes VS, I&O, 24H, Fishbonsandeep Vital Signs/I&O Vital Signs Date Time Temp Pulse Resp B/P (MAP) Pulse Ox O2 Delivery O2 Flow Rate FiO2 08/19/16 09:00 Room Air 08/19/16 08:13 52 159/73 08/19/16 06:40 18 08/19/16 06:00 96.7 94 I&O- Last 24 Hours up to 6 AM 08/19/16 06:00 Intake Total 2550 ml Output Total 3215 ml Balance -665 ml Laboratory Data 24H LABS Laboratory Tests 2 08/18/16 11:40: Bedside Glucose (Misc Panel) 181H 08/18/16 16:47: Bedside Glucose (Misc Panel) 206H 08/18/16 20:02: Bedside Glucose (Misc Panel) 183H 08/19/16 06:03: Bedside Glucose (Misc Panel) 190H HAN MELGAR MD Aug 19, 2016 10:24
[2016-08-19 11:16] LABS: CALCIUM LEVEL 8.7 MG/DL (8.8-10.2); CREATININE FOR GFR 2.03 MG/DL (0.70-1.30); GLOMERULAR FILTRATION RATE 35.2 (>49); POTASSIUM SERUM 4.4 MEQ/L (3.5-5.1)
[2016-08-19 14:00] VITALS: BP 137/57
[2016-08-19] MEDS: CALCIUM CARBONATE 500 MG CHEW U/D PO PRN ×2 (14:17→20:32)
[2016-08-19] MEDS: WARFARIN SOD 3 MG TAB PO SCH (17:21)
[2016-08-19] MEDS: BENZTROPINE 0.5 MG TAB PO SCH (17:21)
[2016-08-19] MEDS: SIMVASTATIN 20 MG TAB PO SCH (20:32)
[2016-08-19 22:00] VITALS: BP 146/76
[2016-08-20] MEDS: AMPICILLIN SOD/SULBACTAM SOD 3 GM in D5W MINI-BAG PLUS 100 ML IV SCH ×3 (01:15→17:39)
[2016-08-20] MEDS: ACETAMINOPHEN TAB 650MG DOSE (2X325MG) PO PRN (01:15)
[2016-08-20 06:00] VITALS: BP_SYST 158; BP_SYST 168; BP_DIAS 64; BP_DIAS 74
[2016-08-20] MEDS: SODIUM CHLORIDE 0.9% INJ 10 ML SYR IV SCH ×2 (06:01→17:41)
[2016-08-20 06:15] LABS: BASO % 0.7 % (0.0-1.0); EOS # 0.3 K/mm3 (0.0-0.50); EOS % 4.6 % (0.0-3.0); LARGE UNSTAINED CELL # 0.1 K/mm3 (0.0-0.4); LARGE UNSTAINED CELL % 1.7 % (0.0-4.0); LYMPH # 1.5 K/mm3 (1.5-4.5); LYMPH % 20.5 % (24.0-44.0); MEAN CORPUSCULAR HEMOGLOBIN 30.4 pg (27.0-33.0); MEAN CORPUSCULAR HGB CONC 32.8 g/dl (32.0-36.5); MEAN CORPUSCULAR VOLUME 92.6 fl (80.0-96.0); MONO # 0.6 K/mm3 (0.0-0.8); MONO % 8.7 % (0.0-5.0); NEUTROPHILS # 4.5 K/mm3 (1.8-7.7); NEUTROPHILS % 63.8 % (36.0-66.0); PLATELET COUNT, AUTOMATED 231 k/mm3 (150-450); RED CELL DISTRIBUTION WIDTH 14.7 % (11.5-14.5); WHITE BLOOD COUNT 7.1 K/mm3 (4.0-10.0)
[2016-08-20] MEDS: PERCOCET 5MG/325MG TAB PO PRN ×2 (06:15→17:40)
[2016-08-20 06:37] LABS: CALCIUM LEVEL 8.1 MG/DL (8.8-10.2); CREATININE FOR GFR 1.86 MG/DL (0.70-1.30); GLOMERULAR FILTRATION RATE 38.9 (>49); POTASSIUM SERUM 4.3 MEQ/L (3.5-5.1)
[2016-08-20] MEDS: HumaLOG INSULIN (NovoLOG) PER UNIT SC SCH ×4 (07:30→21:00)
[2016-08-20] MEDS: DOCUSATE SODIUM 100 MG CAP PO SCH ×2 (08:31→22:04)
[2016-08-20] MEDS: CLOPIDOGREL 75 MG TAB PO SCH ×2 (08:32→09:00)
[2016-08-20] MEDS: LEVEMIR (INSULIN DETEMIR) 1 UNITS/0.01ML SC SCH ×2 (08:32→22:04)
[2016-08-20] MEDS: ATENOLOL 25 MG TAB PO SCH ×2 (08:36→09:55)
[2016-08-20] MEDS: ZIPRASIDONE 80 MG CAP (GEODON) PO SCH ×2 (08:40→22:04)
[2016-08-20] MEDS: HALOPERIDOL 5 MG TAB PO SCH (08:40)
[2016-08-20] MEDS: NYSTATIN 100,000 UNITS/GM TOPICAL PWD 15 GM TOP SCH ×2 (08:45→21:00)
[2016-08-20 10:54] VITALS: BP 170/69
--- NOTE | 2016-08-20 11:09 | IPNPDOC ---
Subjective Date Seen The patient was seen on 08/20/16. Subjective Chief Complaint/HPI The patient is a 66-year-old male admitted with a reason for visit of Osteomyelitis, Left Femoral Artery Occlusion. Events since last encounter no complaints today . Objective Physical Examination General Exam: Positive: Alert, Cooperative, No Acute Distress Eye Exam: Positive: PERRLA, Conjunctiva & lids normal, EOMI, Negative: Sclera icteric ENT Exam: Positive: Atraumatic, Mucous membr. moist/pink, Pharynx Normal Neck Exam: Positive: Supple, Negative: JVD, thyromegaly Chest Exam: Positive: Clear to auscultation, Normal air movement Heart Exam: Positive: Rate Normal, Regular Rhythm, Normal S1, Normal S2, Negative: Murmurs, Rubs Abdomen Exam: Positive: Normal bowel sounds, Soft, Negative: Tenderness, Hepatospenomegaly Extremity Exam: Positive: Tenderness, Other (pulses not appreciated. ) Skin Exam: Positive: Other skin issue (chronic venous stasis dermatitis, left toe dry gangrene) Assessment /Plan Problems (1) Cellulitis and abscess of foot Problem Text: Polymicrobial abscess with acute osteomyelitis of the left foot status post amputation. There is no residual bone infection according to Dr. Carter. Culture positive for MSSA group C strep and bacteroides fragilis. Patient on intravenous (IV) unasyn day 17 .plan is to switch to oral Augmentin on discharge (2) Osteomyelitis Status: Acute Problem Text: on unasyn patien to be changed to augmentin on discharge (3) Gangrene of foot Status: Acute Problem Text: dry gangrene . planned for OR tomorrow for debridement (4) PAD (peripheral artery disease) Status: Chronic Problem Text: s/p left femoral endarterectomy on 08/13 Has right below knee amputation (5) Poorly controlled diabetes mellitus Status: Chronic Problem Text: most of the blood glucose levels are less than 200 will continue the same dosage on insulin . (6) Diabetic retinopathy Status: Chronic (7) CKD (chronic kidney disease) Status: Chronic Problem Text: had an Frantz on ckd now cratinine almost back to baseline. Plan/VTE VTE Prophylaxis Ordered?: Yes VS, I&O, 24H, Fishbone Vital Signs/I&O Vital Signs Date Time Temp Pulse Resp B/P (MAP) Pulse Ox O2 Delivery O2 Flow Rate FiO2 08/20/16 10:54 98.0 56 20 170/69 (102) 96 08/20/16 08:33 Room Air I&O- Last 24 Hours up to 6 AM 08/20/16 06:00 Intake Total 2470 ml Output Total 2425 ml Balance 45 ml Laboratory Data 24H LABS Laboratory Tests 2 08/19/16 11:55: Bedside Glucose (Misc Panel) 209H 08/19/16 16:38: Bedside Glucose (Misc Panel) 206H 08/19/16 21:03: Bedside Glucose (Misc Panel) 164H 08/20/16 06:04: White Blood Count 7.1, Red Blood Count 3.61L, Hemoglobin 11.0L, Hematocrit 33.4L , Mean Corpuscular Volume 92.6, Mean Corpuscular Hemoglobin 30.4, Mean Corpuscular Hemoglobin Concent 32.8, Red Cell Distribution Width 14.7H, Platelet Count 231, Neutrophils (%) (Auto) 63.8, Lymphocytes (%) (Auto) 20.5L, Monocytes (%) (Auto) 8.7H, Eosinophils (%) (Auto) 4.6H, Basophils (%) (Auto) 0.7 , Neutrophils # (Auto) 4.5, Lymphocytes # (Auto) 1.5, Monocytes # (Auto) 0.6, Eosinophils # (Auto) 0.3, Basophils # (Auto) 0.0, Large Unclassified Cells % 1.7 , Large Unclassified Cells # 0.1, Anion Gap 7L, Glomerular Filtration Rate 38.9L , Blood Urea Nitrogen 32H, Creatinine 1.86H, Sodium Level 140, Potassium Level 4.3, Chloride Level 106, Carbon Dioxide Level 27, Calcium Level 8.1L 08/20/16 10:02: Bedside Glucose (Misc Panel) 163H CBC/BMP Laboratory Tests 08/20/16 06:04 Red Blood Count 3.61 L, Mean Corpuscular Volume 92.6, Mean Corpuscular Hemoglobin 30.4, Mean Corpuscular Hemoglobin Concent 32.8, Red Cell Distribution Width 14.7 H, Neutrophils (%) (Auto) 63.8, Lymphocytes (%) (Auto) 20.5 L, Monocytes (%) (Auto) 8.7 H, Eosinophils (%) (Auto) 4.6 H, Basophils (%) (Auto) 0.7, Neutrophils # (Auto) 4.5, Lymphocytes # (Auto) 1.5, Monocytes # ( Auto) 0.6, Eosinophils # (Auto) 0.3, Basophils # (Auto) 0.0, Calcium Level 8.1 HAN DELGADILLO MD Aug 20, 2016 11:09
[2016-08-20] MEDS ORDERED: PROPOFOL 200 MG/20 ML VIAL As Ordered ONE (12:05)
[2016-08-20] MEDS ORDERED: fentaNYL 100 MCG/2 ML INJECTION (J3010) As Ordered ONE (12:06)
[2016-08-20] MEDS ORDERED: MIDAZOLAM INJ 2 MG/2 ML VIAL (J2250) As Ordered ONE (12:06)
[2016-08-20] MEDS ORDERED: BUPIVACAINE HCL 0.5% 30 ML VIAL As Ordered ONE (12:42)
[2016-08-20] MEDS ORDERED: LIDOCAINE 1% SDV INJ 30 ML VIAL As Ordered ONE (12:42)
[2016-08-20 14:00] VITALS: BP 132/62
[2016-08-20 14:30] VITALS: BP 135/60
[2016-08-20 15:00] VITALS: BP 133/65
[2016-08-20] MEDS: CALCIUM CARBONATE 500 MG CHEW U/D PO PRN ×2 (17:39→22:04)
[2016-08-20] MEDS: WARFARIN SOD 3 MG TAB PO SCH (17:40)
[2016-08-20] MEDS: BENZTROPINE 0.5 MG TAB PO SCH (17:40)
[2016-08-20 22:00] VITALS: BP 180/72
[2016-08-20] MEDS: SIMVASTATIN 20 MG TAB PO SCH (22:04)
[2016-08-21] MEDS: AMPICILLIN SOD/SULBACTAM SOD 3 GM in D5W MINI-BAG PLUS 100 ML IV SCH ×2 (02:17→10:48)
[2016-08-21] MEDS: SODIUM CHLORIDE 0.9% INJ 10 ML SYR IV SCH ×2 (05:01→16:48)
[2016-08-21] MEDS: PERCOCET 5MG/325MG TAB PO PRN ×4 (05:27→23:11)
[2016-08-21 06:00] VITALS: BP 166/75
--- NOTE | 2016-08-21 07:16 | IPNPDOC ---
Subjective Date Seen The patient was seen on 08/21/16. Subjective Chief Complaint/HPI The patient is a 66-year-old male admitted with a reason for visit of Osteomyelitis, Left Femoral Artery Occlusion. Events since last encounter no complaints this am , patient went for debridement of left dry gangrene of the foot yesterday Objective Physical Examination General Exam: Positive: Alert, Cooperative, No Acute Distress Eye Exam: Positive: PERRLA, Conjunctiva & lids normal, EOMI, Negative: Sclera icteric ENT Exam: Positive: Atraumatic, Mucous membr. moist/pink, Pharynx Normal Neck Exam: Positive: Supple, Negative: JVD, thyromegaly Chest Exam: Positive: Clear to auscultation, Normal air movement Heart Exam: Positive: Rate Normal, Regular Rhythm, Normal S1, Normal S2, Negative: Murmurs, Rubs Abdomen Exam: Positive: Normal bowel sounds, Soft, Negative: Tenderness, Hepatospenomegaly Extremity Exam: Positive: Tenderness, Other (pulses not appreciated. ) Skin Exam: Positive: Other skin issue (chronic venous stasis dermatitis, left toe dry gangrene) Assessment /Plan Problems (1) Cellulitis and abscess of foot Problem Text: Polymicrobial abscess with acute osteomyelitis of the left foot status post amputation. There is no residual bone infection according to Dr. Carter. Culture positive for MSSA group C strep and bacteroides fragilis. Patient on intravenous (IV) unasyn day 18 .plan is to switch to oral Augmentin on discharge (2) Osteomyelitis Status: Acute Problem Text: on unasyn patient to be changed to augmentin on discharge underwent debridement of wound at the base of the amputated left 5th toe with removal of bone on 08/20/16 (3) Gangrene of foot Status: Acute Problem Text: dry gangrene . s/p debridement on 08/20/16 (4) PAD (peripheral artery disease) Status: Chronic Problem Text: s/p left femoral endarterectomy on 08/13 Has right below knee amputation (5) Poorly controlled diabetes mellitus Status: Chronic Problem Text: most of the blood glucose levels are less than 200 will continue the same dosage on insulin . (6) Diabetic retinopathy Status: Chronic (7) CKD (chronic kidney disease) Status: Chronic Problem Text: had an Frantz on ckd now cratinine almost back to baseline. Plan/VTE VTE Prophylaxis Ordered?: Yes VS, I&O, 24H, Fishbone Vital Signs/I&O Vital Signs Date Time Temp Pulse Resp B/P (MAP) Pulse Ox O2 Delivery O2 Flow Rate FiO2 08/21/16 06:00 97.3 56 20 166/75 (105) 94 Room Air I&O- Last 24 Hours up to 6 AM 08/21/16 06:00 Intake Total 2155 ml Output Total 1730 ml Balance 425 ml Laboratory Data 24H LABS Laboratory Tests 2 08/20/16 10:02: Bedside Glucose (Misc Panel) 163H 08/20/16 13:17: Bedside Glucose (Misc Panel) 156H 08/20/16 16:20: Bedside Glucose (Misc Panel) 236H 08/20/16 19:50: Bedside Glucose (Misc Panel) 164H 08/21/16 05:54: Bedside Glucose (Misc Panel) 148H HAN MELGAR MD Aug 21, 2016 07:16
[2016-08-21] MEDS: LEVEMIR (INSULIN DETEMIR) 1 UNITS/0.01ML SC SCH ×2 (10:31→20:41)
[2016-08-21] MEDS: HumaLOG INSULIN (NovoLOG) PER UNIT SC SCH ×4 (10:32→20:40)
[2016-08-21] MEDS: ATENOLOL 25 MG TAB PO SCH (10:34)
[2016-08-21] MEDS: HALOPERIDOL 5 MG TAB PO SCH (10:34)
[2016-08-21] MEDS: DOCUSATE SODIUM 100 MG CAP PO SCH ×2 (10:34→20:40)
[2016-08-21] MEDS: CLOPIDOGREL 75 MG TAB PO SCH (10:34)
[2016-08-21] MEDS: ZIPRASIDONE 80 MG CAP (GEODON) PO SCH ×2 (10:35→20:40)
[2016-08-21] MEDS: DAKIN'S 0.25% HALF-STRENGTH SOLN 480 ML TOP SCH ×4 (10:36→20:41)
[2016-08-21 10:56] VITALS: BP 170/80
[2016-08-21 12:07] VITALS: BP 170/80
[2016-08-21] MEDS: NYSTATIN 100,000 UNITS/GM TOPICAL PWD 15 GM TOP SCH ×2 (12:46→20:40)
[2016-08-21 12:59] LABS: BASO # 0.1 K/mm3 (0.0-0.2); BASO % 0.6 % (0.0-1.0); EOS # 0.3 K/mm3 (0.0-0.50); EOS % 2.8 % (0.0-3.0); LARGE UNSTAINED CELL # 0.1 K/mm3 (0.0-0.4); LYMPH % 10.5 % (24.0-44.0); MEAN CORPUSCULAR HEMOGLOBIN 30.5 pg (27.0-33.0); MEAN CORPUSCULAR HGB CONC 33.1 g/dl (32.0-36.5); MONO # 0.6 K/mm3 (0.0-0.8); MONO % 5.8 % (0.0-5.0); NEUTROPHILS # 7.6 K/mm3 (1.8-7.7); NEUTROPHILS % 79.4 % (36.0-66.0); PLATELET COUNT, AUTOMATED 249 k/mm3 (150-450); RED CELL DISTRIBUTION WIDTH 14.6 % (11.5-14.5); WHITE BLOOD COUNT 9.6 K/mm3 (4.0-10.0)
[2016-08-21 13:27] LABS: CALCIUM LEVEL 8.7 MG/DL (8.8-10.2); CREATININE FOR GFR 1.85 MG/DL (0.70-1.30); GLOMERULAR FILTRATION RATE 39.1 (>49); POTASSIUM SERUM 4.5 MEQ/L (3.5-5.1)
[2016-08-21 14:00] VITALS: BP 140/71
[2016-08-21] MEDS: WARFARIN SOD 3 MG TAB PO SCH (16:47)
[2016-08-21] MEDS: BENZTROPINE 0.5 MG TAB PO SCH (16:47)
[2016-08-21] MEDS: SIMVASTATIN 20 MG TAB PO SCH (20:40)
[2016-08-21 22:00] VITALS: BP 146/67
[2016-08-22] MEDS: SODIUM CHLORIDE 0.9% INJ 10 ML SYR IV SCH ×2 (05:58→17:32)
[2016-08-22 06:00] VITALS: BP_SYST 146; BP_SYST 160; BP_DIAS 59; BP_DIAS 67
[2016-08-22] MEDS: PERCOCET 5MG/325MG TAB PO PRN ×4 (06:28→18:54)
--- NOTE | 2016-08-22 07:41 | IPNPDOC ---
Subjective Date Seen The patient was seen on 08/22/16. Subjective Chief Complaint/HPI The patient is a 66-year-old male admitted with a reason for visit of Osteomyelitis, Left Femoral Artery Occlusion. Events since last encounter No complaints today. feeling well, working with PT. Objective Physical Examination General Exam: Positive: Alert, Cooperative, No Acute Distress Eye Exam: Positive: PERRLA, Conjunctiva & lids normal, EOMI, Negative: Sclera icteric ENT Exam: Positive: Atraumatic, Mucous membr. moist/pink, Pharynx Normal Neck Exam: Positive: Supple, Negative: JVD, thyromegaly Chest Exam: Positive: Clear to auscultation, Normal air movement Heart Exam: Positive: Rate Normal, Regular Rhythm, Normal S1, Normal S2, Negative: Murmurs, Rubs Abdomen Exam: Positive: Normal bowel sounds, Soft, Negative: Tenderness, Hepatospenomegaly Extremity Exam: Positive: Tenderness, Other (pulses not appreciated. ) Skin Exam: Positive: Other skin issue (chronic venous stasis dermatitis, left foot dry gangrene) Assessment /Plan Problems (1) Cellulitis and abscess of foot Problem Text: Polymicrobial abscess with acute osteomyelitis of the left foot status post amputation. There is no residual bone infection according to Dr. Carter. Culture positive for MSSA group C strep and bacteroides fragilis. Patient on intravenous (IV) unasyn day 18 .plan is to switch to oral Augmentin on discharge (2) Osteomyelitis Status: Acute Problem Text: on unasyn patient to be changed to augmentin on discharge underwent debridement of wound at the base of the amputated left 5th toe with removal of bone on 08/20/16 (3) Gangrene of foot Status: Acute Problem Text: dry gangrene . s/p debridement on 08/20/16 (4) PAD (peripheral artery disease) Status: Chronic Problem Text: s/p left femoral endarterectomy on 08/13 Has right below knee amputation (5) Poorly controlled diabetes mellitus Status: Chronic Problem Text: most of the blood glucose levels are less than 200 will continue the same dosage on insulin . (6) Diabetic retinopathy Status: Chronic (7) CKD (chronic kidney disease) Status: Chronic Problem Text: had an Frantz on ckd now cratinine almost back to baseline. (8) Encounter for smoking cessation counseling Status: Acute Problem Text: counselled about smoking cessation spent 5 mins on discussion with the pateint regarding help available. Plan/VTE VTE Prophylaxis Ordered?: Yes VS, I&O, 24H, Fishbone Vital Signs/I&O Vital Signs Date Time Temp Pulse Resp B/P (MAP) Pulse Ox O2 Delivery O2 Flow Rate FiO2 08/22/16 06:58 18 Room Air 08/22/16 06:00 97.3 52 160/59 (92) 96 I&O- Last 24 Hours up to 6 AM 08/22/16 06:00 Intake Total 1800 ml Output Total 1900 ml Balance -100 ml Laboratory Data 24H LABS Laboratory Tests 2 08/21/16 10:03: Bedside Glucose (Misc Panel) 208H 08/21/16 11:47: Bedside Glucose (Misc Panel) 188H 08/21/16 12:42: White Blood Count 9.6, Red Blood Count 3.77L, Hemoglobin 11.5L, Hematocrit 34.7L , Mean Corpuscular Volume 92.0, Mean Corpuscular Hemoglobin 30.5, Mean Corpuscular Hemoglobin Concent 33.1, Red Cell Distribution Width 14.6H, Platelet Count 249, Neutrophils (%) (Auto) 79.4H, Lymphocytes (%) (Auto) 10.5L, Monocytes (%) (Auto) 5.8H, Eosinophils (%) (Auto) 2.8, Basophils (%) (Auto) 0.6 , Neutrophils # (Auto) 7.6, Lymphocytes # (Auto) 1.0L, Monocytes # (Auto) 0.6, Eosinophils # (Auto) 0.3, Basophils # (Auto) 0.1, Large Unclassified Cells % 1.0 , Large Unclassified Cells # 0.1, Anion Gap 6L, Glomerular Filtration Rate 39.1L , Blood Urea Nitrogen 31H, Creatinine 1.85H, Sodium Level 140, Potassium Level 4.5, Chloride Level 104, Carbon Dioxide Level 30, Calcium Level 8.7L 08/21/16 16:33: Bedside Glucose (Misc Panel) 185H 08/21/16 18:06: Bedside Glucose (Misc Panel) 266H 08/21/16 19:34: Bedside Glucose (Misc Panel) 205H 08/22/16 05:53: Bedside Glucose (Misc Panel) 175H CBC/BMP Laboratory Tests 08/21/16 12:42 Red Blood Count 3.77 L, Mean Corpuscular Volume 92.0, Mean Corpuscular Hemoglobin 30.5, Mean Corpuscular Hemoglobin Concent 33.1, Red Cell Distribution Width 14.6 H, Neutrophils (%) (Auto) 79.4 H, Lymphocytes (%) (Auto ) 10.5 L, Monocytes (%) (Auto) 5.8 H, Eosinophils (%) (Auto) 2.8, Basophils (%) (Auto) 0.6, Neutrophils # (Auto) 7.6, Lymphocytes # (Auto) 1.0 L, Monocytes # ( Auto) 0.6, Eosinophils # (Auto) 0.3, Basophils # (Auto) 0.1, Calcium Level 8.7 L HAN MELGAR MD Aug 22, 2016 07:41
[2016-08-22] MEDS: ZIPRASIDONE 80 MG CAP (GEODON) PO SCH ×2 (08:15→21:38)
[2016-08-22] MEDS: CLOPIDOGREL 75 MG TAB PO SCH (08:15)
[2016-08-22] MEDS: ATENOLOL 25 MG TAB PO SCH (08:15)
[2016-08-22] MEDS: HALOPERIDOL 5 MG TAB PO SCH (08:15)
[2016-08-22] MEDS: DOCUSATE SODIUM 100 MG CAP PO SCH ×2 (08:15→21:38)
[2016-08-22] MEDS: DAKIN'S 0.25% HALF-STRENGTH SOLN 480 ML TOP SCH ×4 (08:16→21:38)
[2016-08-22] MEDS: HumaLOG INSULIN (NovoLOG) PER UNIT SC SCH ×4 (08:16→21:00)
[2016-08-22] MEDS: NYSTATIN 100,000 UNITS/GM TOPICAL PWD 15 GM TOP SCH ×2 (08:16→21:39)
[2016-08-22] MEDS: LEVEMIR (INSULIN DETEMIR) 1 UNITS/0.01ML SC SCH ×2 (08:16→21:38)
[2016-08-22 14:00] VITALS: BP 157/74
[2016-08-22] MEDS: BENZTROPINE 0.5 MG TAB PO SCH (17:32)
[2016-08-22] MEDS: WARFARIN SOD 3 MG TAB PO SCH (17:32)
[2016-08-22] MEDS: SIMVASTATIN 20 MG TAB PO SCH (21:38)
[2016-08-22 22:00] VITALS: BP 160/72
[2016-08-23] MEDS: PERCOCET 5MG/325MG TAB PO PRN (03:52)
[2016-08-23] MEDS: SODIUM CHLORIDE 0.9% INJ 10 ML SYR IV SCH (06:31)
[2016-08-23 07:56] VITALS: BP 160/59
[2016-08-23] MEDS: HumaLOG INSULIN (NovoLOG) PER UNIT SC SCH (07:56)
[2016-08-23] MEDS: ATENOLOL 25 MG TAB PO SCH (07:56)
[2016-08-23] MEDS: DOCUSATE SODIUM 100 MG CAP PO SCH (07:57)
[2016-08-23] MEDS: HALOPERIDOL 5 MG TAB PO SCH (07:57)
[2016-08-23] MEDS: LEVEMIR (INSULIN DETEMIR) 1 UNITS/0.01ML SC SCH (07:57)
[2016-08-23] MEDS: CLOPIDOGREL 75 MG TAB PO SCH (07:57)
[2016-08-23 07:58] LABS: BASO # 0.1 K/mm3 (0.0-0.2); BASO % 0.7 % (0.0-1.0); EOS # 0.4 K/mm3 (0.0-0.50); EOS % 4.7 % (0.0-3.0); LARGE UNSTAINED CELL # 0.1 K/mm3 (0.0-0.4); LARGE UNSTAINED CELL % 1.7 % (0.0-4.0); LYMPH # 1.8 K/mm3 (1.5-4.5); LYMPH % 21.4 % (24.0-44.0); MEAN CORPUSCULAR HEMOGLOBIN 30.7 pg (27.0-33.0); MEAN CORPUSCULAR HGB CONC 33.4 g/dl (32.0-36.5); MONO # 0.7 K/mm3 (0.0-0.8); NEUTROPHILS # 4.8 K/mm3 (1.8-7.7); NEUTROPHILS % 62.4 % (36.0-66.0); PLATELET COUNT, AUTOMATED 254 k/mm3 (150-450); RED CELL DISTRIBUTION WIDTH 14.7 % (11.5-14.5); WHITE BLOOD COUNT 7.6 K/mm3 (4.0-10.0)
[2016-08-23 08:21] LABS: ALBUMIN 1.9 GM/DL (3.2-5.2); ALBUMIN/GLOBULIN RATIO 0.45 (1.00-1.93); BILIRUBIN,TOTAL 0.2 MG/DL (0.2-1.0); CALCIUM LEVEL 8.6 MG/DL (8.8-10.2); CREATININE FOR GFR 2.09 MG/DL (0.70-1.30); POTASSIUM SERUM 4.4 MEQ/L (3.5-5.1); TOTAL PROTEIN 6.1 GM/DL (6.4-8.2)
[2016-08-23] MEDS: DAKIN'S 0.25% HALF-STRENGTH SOLN 480 ML TOP SCH (09:00)
[2016-08-23] MEDS: ZIPRASIDONE 80 MG CAP (GEODON) PO SCH (09:47)
[2016-08-23] MEDS: NYSTATIN 100,000 UNITS/GM TOPICAL PWD 15 GM TOP SCH (09:49)
--- NOTE | 2016-08-23 10:18 | IPNPDOC ---
Subjective Date Seen The patient was seen on 08/23/16. Subjective Chief Complaint/HPI The patient is a 66-year-old male admitted with a reason for visit of Osteomyelitis, Left Femoral Artery Occlusion. Events since last encounter pt seen and examined, doing well, complaining of some foot pain, no overnight events. Objective Physical Examination General Exam: Positive: Alert, Cooperative, No Acute Distress Eye Exam: Positive: PERRLA, Conjunctiva & lids normal, EOMI, Negative: Sclera icteric ENT Exam: Positive: Atraumatic, Mucous membr. moist/pink, Pharynx Normal Neck Exam: Positive: Supple, Negative: JVD, thyromegaly Chest Exam: Positive: Clear to auscultation, Normal air movement Heart Exam: Positive: Rate Normal, Regular Rhythm, Normal S1, Normal S2, Negative: Murmurs, Rubs Abdomen Exam: Positive: Normal bowel sounds, Soft, Negative: Tenderness, Hepatospenomegaly Extremity Exam: Positive: Tenderness, Other (pulses not appreciated. ) Skin Exam: Positive: Other skin issue (chronic venous stasis dermatitis, left foot dry gangrene) Assessment /Plan Problems (1) Cellulitis and abscess of foot Problem Text: Polymicrobial abscess with acute osteomyelitis of the left foot status post amputation. There is no residual bone infection according to Dr. Carter. Culture positive for MSSA group C strep and bacteroides fragilis. Patient on intravenous (IV) unasyn day 19 .plan is to switch to oral Augmentin on discharge per infection disease recommendation (2) Osteomyelitis Status: Acute Problem Text: on unasyn patient to be changed to augmentin on discharge per dr melton's recommendations underwent debridement of wound at the base of the amputated left 5th toe with removal of bone on 08/20/16 Pt will need to f/u with Dr Carter outpt after discharge Pt will be discharged to [facility] today (3) Gangrene of foot Status: Acute Problem Text: dry gangrene . s/p debridement on 08/20/16 (4) PAD (peripheral artery disease) Status: Chronic Problem Text: s/p left femoral endarterectomy on 08/13 Has right below knee amputation (5) Poorly controlled diabetes mellitus Status: Chronic Problem Text: most of the blood glucose levels are less than 200 will continue the same dosage on insulin . (6) Diabetic retinopathy Status: Chronic (7) CKD (chronic kidney disease) Status: Chronic Problem Text: had an Frantz on ckd now cratinine almost back to baseline. (8) Encounter for smoking cessation counseling Status: Acute Problem Text: counselled about smoking cessation spent 5 mins on discussion with the pateint regarding help available. Plan/VTE VTE Prophylaxis Ordered?: Yes VS, I&O, 24H, Fishbone Vital Signs/I&O Vital Signs Date Time Temp Pulse Resp B/P (MAP) Pulse Ox O2 Delivery O2 Flow Rate FiO2 08/23/16 07:56 61 160/59 08/23/16 04:22 17 Room Air 08/22/16 22:00 98.2 96 I&O- Last 24 Hours up to 6 AM 08/23/16 06:00 Intake Total 2280 ml Output Total 3850 ml Balance -1570 ml Laboratory Data 24H LABS Laboratory Tests 2 08/22/16 11:39: Bedside Glucose (Misc Panel) 165H 08/22/16 16:43: Bedside Glucose (Misc Panel) 174H 08/22/16 20:53: Bedside Glucose (Misc Panel) 232H 08/23/16 05:58: Bedside Glucose (Misc Panel) 190H 08/23/16 07:39: White Blood Count 7.6, Red Blood Count 3.68L, Hemoglobin 11.3L, Hematocrit 33.8L , Mean Corpuscular Volume 92.0, Mean Corpuscular Hemoglobin 30.7, Mean Corpuscular Hemoglobin Concent 33.4, Red Cell Distribution Width 14.7H, Platelet Count 254, Neutrophils (%) (Auto) 62.4, Lymphocytes (%) (Auto) 21.4L, Monocytes (%) (Auto) 9.0H, Eosinophils (%) (Auto) 4.7H, Basophils (%) (Auto) 0.7 , Neutrophils # (Auto) 4.8, Lymphocytes # (Auto) 1.8, Monocytes # (Auto) 0.7, Eosinophils # (Auto) 0.4, Basophils # (Auto) 0.1, Large Unclassified Cells % 1.7 , Large Unclassified Cells # 0.1, Anion Gap 6L, Glomerular Filtration Rate 34.0L , Blood Urea Nitrogen 31H, Creatinine 2.09H, Sodium Level 139, Potassium Level 4.4, Chloride Level 106, Carbon Dioxide Level 27, Calcium Level 8.6L, Aspartate Amino Transf (AST/SGOT) 25, Alanine Aminotransferase (ALT/SGPT) 35, Alkaline Phosphatase 70, Total Bilirubin 0.2, Total Protein 6.1L, Albumin 1.9L, Albumin/ Globulin Ratio 0.45L CBC/BMP Laboratory Tests 08/23/16 07:39 Red Blood Count 3.68 L, Mean Corpuscular Volume 92.0, Mean Corpuscular Hemoglobin 30.7, Mean Corpuscular Hemoglobin Concent 33.4, Red Cell Distribution Width 14.7 H, Neutrophils (%) (Auto) 62.4, Lymphocytes (%) (Auto) 21.4 L, Monocytes (%) (Auto) 9.0 H, Eosinophils (%) (Auto) 4.7 H, Basophils (%) (Auto) 0.7, Neutrophils # (Auto) 4.8, Lymphocytes # (Auto) 1.8, Monocytes # ( Auto) 0.7, Eosinophils # (Auto) 0.4, Basophils # (Auto) 0.1, Calcium Level 8.6 L , Aspartate Amino Transf (AST/SGOT) 25, Alanine Aminotransferase (ALT/SGPT) 35, Alkaline Phosphatase 70, Total Bilirubin 0.2, Total Protein 6.1 L, Albumin 1.9 L MARK MEJIA DO Aug 23, 2016 10:18
--- NOTE | 2016-09-09 09:57 | RO ---
DATE OF PROCEDURE: 08/03/2016 PREPROCEDURE DIAGNOSES: Nonhealing left fifth toe amputation site ulcer, diabetes mellitus, venous valvular insufficiency, chronic renal insufficiency. POSTPROCEDURE DIAGNOSES: Nonhealing left fifth toe amputation site ulcer, diabetes mellitus, venous valvular insufficiency, chronic renal insufficiency. PROCEDURE: Aortogram, iliofemoral angiogram, pressure measurements in the aorta and right and left femoral arteries. Mynx closure of the bilateral common femoral arteriotomies. SURGEON: Dr. Eugene Jeffers. PLASTERER ROUGH: ANESTHESIA: Local with sedation with 2 mg of Versed, 100 mcg of Fentanyl and 20 mL of 2% lidocaine. ESTIMATED BLOOD LOSS: FLUORO TIME: 3.7 minutes. CONTRAST: 2 mL. SEDATION TIME: From 9:50 a.m. to 11 o'clock a.m. with the sedation administered by the nurse in the room, the cardiopulmonary monitoring performed by the nurse in the room under my direction. I was present for and directed the entire case. COMPLICATIONS: None. DRAINS: None. SPECIMENS: None. IMPLANTS: Bilateral femoral arterial Mynx closure devices. INDICATION: Patient is a 65-year-old male with chronic renal insufficiency, diabetes mellitus, tobacco abuse and severe peripheral arterial disease who underwent amputation of the left fifth toe which is now nonhealing and the patient has cellulitis and infection in the left foot. Patient has nonpalpable pulses distally and will require evaluation of his arterial inflow and possible angioplasty and stent. Risks, benefits and alternative treatment options were discussed with the patient. Alternative treatment included but were not limited to no intervention. Risks included but were not limited to infection, bleeding, renal failure requiring hemodialysis, retroperitoneal hematoma, possible need for open surgical intervention, cerebrovascular accident, myocardial infarction, pulmonary embolus, deep venous thrombosis (DVT), loss of limb, loss of life and poor outcome. Patient understands, accepts these risks and consents to proceed. PROCEDURE: The patient was taken to the angiography suite and placed supine on the angiography room table and then prepped and draped in a standard surgical fashion after a time out was completed confirming the correct patient and procedure. The right common femoral artery was then cannulated with a micropuncture needle after anesthetizing the overlying skin with 1% lidocaine. A micropuncture wire was advanced through the micropuncture needle which was upsized to a micropuncture sheath. A Bentson wire was advanced through the micropuncture sheath which was upsized to a #5-Cro[place] sheath. An Omniflush catheter was placed in the aorta and an aortogram and iliofemoral angiogram were performed. Due to the patient's chronic renal insufficiency and minimal amounts of contrast able to be used, it was difficult to visualize the aortoiliac system. The left common femoral artery was then cannulated with a micropuncture needle after anesthetizing the overlying skin with 1% lidocaine. Pressure measurements were taken in the aorta and at both femoral sheaths which showed the aortic pressure to be 143/63 with a mean of 86. The pressure in the right femoral sheath was 146/60 with a mean of 88 and the pressure in the left femoral sheath was 148/62 with a mean of 88. This showed no significant gradient in the aortoiliac system. A iliofemoral angiogram was then performed through the left common femoral arterial sheath which showed high grade near occlusive lesion in the common femoral artery extending into the superficial femoral artery and profunda femoris arteries. The sheaths were then removed and a Mynx closure device was used to close the arteriotomies bilaterally with adjunctive pressure applied for 15 minutes. Dressings were then applied. Patient tolerated the procedure well. All instrument, sponge and needle counts were correct at the end of the case. There were no complications. Dr. Jeffers was present for and directed the entire case. Patient was transferred to the holding area and subsequently discharged in stable condition back to the floor. RADIOLOGIC SUPERVISION INTERPRETATION: The initial aortogram and iliofemoral angiogram were difficult to evaluate the aorta and iliac system due to inability to use a large amount of contrast due to the patient's chronic renal insufficiency and the severe calcific occlusive disease. Pressure measurements were then taken in the aorta and both iliac arteries through the femoral sheaths which showed no significant gradient noted. A left iliofemoral angiogram was performed showing the external iliac artery to be patent but severely calcified with high grade stenosis in the common femoral artery at the junction of the superficial femoral and profunda femoris arteries. Bilateral Mynx closure devices were used to close the arteriotomies.
--- NOTE | 2016-09-09 10:09 | RO ---
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 PROCEDURE: Sharp debridement with excision debridement of nonviable skin, subcutaneous tissue, muscle and bone of the left fifth toe amputation site. SURGEON: Dr. Eugene Jeffers. LAUNCHMAN: None. ANESTHESIA: Local MAC. ESTIMATED BLOOD LOSS: 50 mL. IV FLUIDS: 50 mL. SPECIMEN: Bone and debrided tissue from the left fifth toe amputation site. COMPLICATIONS: None. DRAINS: None. IMPLANTS: None. INDICATION: Patient is a 65-year-old male who underwent amputation of his Left fifth toe and subsequently developed osteomyelitis, infection and cellulitis. The patient underwent evaluation of his arterial inflow and was noted to have severe arterial occlusive disease at the femoral junction of the superficial femoral, common femoral and profunda femoris arteries. Due to his chronic renal insufficiency, evaluation of the remainder of the lower extremity was not undertaken. The patient underwent a left femoral endarterectomy with patch angioplasty and had significant improvement in the perfusion of his left lower extremity as well as resolution of his previous pain in his left foot. The patient now has nonviable tissue and nonhealing wound and will undergo debridement of the nonviable tissue. Risks, benefits and alternative treatment options were discussed with the patient. Alternative treatment options including but were not limited to no intervention. Risks included but were not limited to infection, bleeding, renal failure requiring hemodialysis, possible need for further open surgical intervention, cerebrovascular accident, myocardial infarction, pulmonary embolus, deep venous thrombosis (DVT), loss of limb, loss of life and poor outcome. Patient understands, accepts these risks and consents to proceed. PROCEDURE: The patient was taken to the operating room and placed supine on the operating room table and the left foot was prepped and draped in a standard surgical fashion. A scalpel was used to sharply debride nonviable tissue including skin, subcutaneous tissue, muscle, and a bone cutter was used to transect the head of the left fifth metatarsal which was also exposed and nonviable. The resection of the fifth metatarsal head was back to healthy bone. The debridement of the nonviable tissue is back to healthy bleeding tissue after which the wound was packed with a wet to dry dressing. The wound measures approximately 1 cm x 1 cm in diameter and approximately 1 cm in depth. All instrument, sponge and needle counts were correct at the end of the case. There were no complications. Dr. Jeffers was present for and directed the entire case. Patient was transferred to the recovery room, awake, alert, extubated, and in stable condition.
--- NOTE | 2016-09-09 10:35 | RO ---
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 PROCEDURE: Left common femoral artery endarterectomy, left superficial femoral endarterectomy, left profunda femoris artery endarterectomy with patch angioplasty with 1 x 6 XenoSure biological patch, repair of left common femoral arterial pseudoaneurysm with evacuation of hematoma. SURGEON: Dr. Eugene Jeffers DISTRICT PLANT SUPERVISOR: None. ANESTHESIA: Local monitored anesthesia care (MAC). INDICATION: The patient is a 66-year-old male who underwent a left 5th toe amputation, which was nonhealing. The patient developed cellulitis and extreme pain and infection in the left foot requiring admission to the hospital with intravenous (IV) antibiotics. The patient underwent an angiogram showing severe occlusive disease at the junction of the left common femoral, superficial femoral and profunda femoris arteries. They run off below this level. Is not able to be visualized due to contrast limitations due to the patient's chronic renal insufficiency. The patient will undergo a femoral endarterectomy in attempt to establish enough blood flow into the left lower extremity for healing of the left 5th toe amputation site. The patient may require further intervention and angiography if the femoral endarterectomy does not supply enough blood flow for healing of the left foot. Risks, benefits and alternative treatment options were discussed with the patient. Alternative treatment options included, but were not limited to, no intervention. Risks included, but were not limited to, infection, bleeding, renal failure requiring hemodialysis, possible need for further open surgical intervention, cerebrovascular accident, myocardial infarction, pulmonary embolus, deep vein thrombosis (DVT), loss of limb, loss of life and poor outcome. The patient understands, accepts these risks and consents to proceed. ESTIMATED BLOOD LOSS: 650 mL. IV FLUID: 1700 mL of Crystalloid, 2 units of packed red blood cells, heparin 7000 units. SPECIMEN: Left femoral plaque. DRAINS: #10 Jasson-Gavin (J-P). COMPLICATIONS: None. IMPLANT: 1 x 6 XenoSure biologic patch used to perform patchy angioplasty of the left femoral artery. DESCRIPTION OF PROCEDURE: Patient was taken to the operating room and placed supine on the operating room table, and then prepped and draped in a standard surgical fashion. Incision was made obliquely in the inguinal region overlying the left femoral artery. The dissection was carried down to the left common femoral artery when a small pseudoaneurysm was identified. The common femoral artery above this was sharply dissected and the superficial femoral and profunda femoris arteries were sharply dissected below this. These were controlled with vessel loops after the patient was given heparin. The pseudoaneurysm cavity was opened and hematoma was evacuated. The common femoral artery was then opened along its course and extending into the superficial femoral artery, after which an endarterectomy was performed with eversion endarterectomy of the profunda femoris and endarterectomy of the common femoral and superficial femoral arteries. The vessels were flushed antegrade and retrograde, after which the arteriotomy closure was performed using a 1 x 6 biologic XenoSure patch and #6-0 Prolene suture. Flow was re-established with good flow noted into the superficial femoral and profunda femoris arteries with Doppler ultrasound evaluation. Hemostasis was obtained, after which a #10 J-P was placed in the wound and brought out through a separate puncture wound. The wound was then closed in multiple layers using #2-0 Vicryl to approximate the deeper layers and naga to approximate the skin. Dressings were applied. Patient tolerated the procedure well. All instrument, sponge, and needle counts were correct at the end of the case. There were no complications. Dr. Jeffers was present for and directed the entire case. Patient was transferred to the recovery room awake, alert, extubated and in stable condition.
--- NOTE | 2016-09-09 15:53 | DSES ---
DATE OF ADMISSION: 07/31/2016 DATE OF DISCHARGE: 08/23/2016 Please see the admission history and physical for details of the patient's admission. HOSPITAL COURSE: The patient was admitted after undergoing amputation of a left 5th toe. The patient developed cellulitis and infection in the left foot and was admitted and started on antibiotic therapy. I was consulted after his admission for evaluation and the patient subsequently underwent an angiogram which showed severe calcific occlusive disease in his left common femoral, superficial femoral, and profunda femoris arteries. The exam of the left lower extremity was limited due to the patient's renal insufficiency and limits of contrast. The patient subsequently underwent a left femoral endarterectomy with good improvement in flow to his left lower extremity and resolution of his pain. Subsequently, the patient was taken to the operating room for debridement and metatarsal head resection of the left 5th toe amputation site. The patient did well postoperatively and has good perfusion of his left lower extremity with healing of his ulcers on his toes as well as his left 5th toe amputation wound. The patient was transferred to [facility] for continued care on his discharge on 08/23/2016. Discharge medications are listed in the computer. Patient was instructed to followup in 7-10 days. Wound care will be wet-to-dry dressings to the left 5th toe amputation site, dry dressings to the incisions in the left inguinal region. The patient will also followup with Dr. Marcus for further wound care of his left 5th toe amputation site.
[2016-09-14] MEDS ORDERED: ACET-654 PO (18:04)
[2016-09-14] MEDS ORDERED: ENEMENE3 PR (18:04)
== END 2016-08-23 11:55 | disposition home or self-care (01) | DRG 253 ==
LOC: EDBD 13:53 → M ED 14:31 → EDBEDREQSVC 15:04 → M ED INP 15:36 → M MS5PR 16:40 → M ICU 08-12 20:08 → M PCU 08-13 15:54 → M MS5PR 08-17 18:32
PROVIDERS: ADMIT Hospitalist; ATTEND Surgery Vascular Surgery
PROC: 0QBR0ZZ Excision of Left Toe Phalanx, Open Approach (ICD-10-PCS; 2016-08-01)
PROC: 02HV33Z Insertion of Infusion Device into Superior Vena Cava, Percutaneous Approach (ICD-10-PCS; 2016-08-03)
PROC: 04H033Z Insertion of Infusion Device into Abdominal Aorta, Percutaneous Approach (ICD-10-PCS; 2016-08-03)
PROC: 04HL33Z Insertion of Infusion Device into Left Femoral Artery, Percutaneous Approach (ICD-10-PCS; 2016-08-03)
PROC: B41GYZZ Fluoroscopy of Left Lower Extremity Arteries using Other Contrast (ICD-10-PCS; 2016-08-03)
PROC: 04CL0ZZ Extirpation of Matter from Left Femoral Artery, Open Approach (ICD-10-PCS; principal; 2016-08-12 13:30)
PROC: 0QBP0ZZ Excision of Left Metatarsal, Open Approach (ICD-10-PCS; 2016-08-20)
DX: E11.52 Type 2 diabetes mellitus with diabetic peripheral angiopathy with gangrene (principal); M86.172 Other acute osteomyelitis, left ankle and foot; L03.116 Cellulitis of left lower limb; I50.32 Chronic diastolic (congestive) heart failure; D62 Acute posthemorrhagic anemia; N17.9 Acute kidney failure, unspecified; E11.621 Type 2 diabetes mellitus with foot ulcer; F25.9 Schizoaffective disorder, unspecified; E11.319 Type 2 diabetes mellitus with unspecified diabetic retinopathy without macular edema; I70.202 Unspecified atherosclerosis of native arteries of extremities, left leg; I25.2 Old myocardial infarction; E66.01 Morbid (severe) obesity due to excess calories; F17.210 Nicotine dependence, cigarettes, uncomplicated; H26.9 Unspecified cataract; J44.9 Chronic obstructive pulmonary disease, unspecified; I11.0 Hypertensive heart disease with heart failure; B95.2 Enterococcus as the cause of diseases classified elsewhere; E11.40 Type 2 diabetes mellitus with diabetic neuropathy, unspecified; B95.4 Other streptococcus as the cause of diseases classified elsewhere; B95.61 Methicillin susceptible Staphylococcus aureus infection as the cause of diseases classified elsewhere; Z88.8 Allergy status to other drugs, medicaments and biological substances; Z89.611 Acquired absence of right leg above knee; Z95.9 Presence of cardiac and vascular implant and graft, unspecified; Z79.01 Long term (current) use of anticoagulants; Z79.4 Long term (current) use of insulin; Z79.899 Other long term (current) drug therapy; Z68.35 Body mass index [BMI] 35.0-35.9, adult; Z89.422 Acquired absence of other left toe(s); Z86.14 Personal history of Methicillin resistant Staphylococcus aureus infection; Z91.14 Patient's other noncompliance with medication regimen; Z86.718 Personal history of other venous thrombosis and embolism; Z91.19 Patient's noncompliance with other medical treatment and regimen; Z79.02 Long term (current) use of antithrombotics/antiplatelets; L97.529 Non-pressure chronic ulcer of other part of left foot with unspecified severity

== ENCOUNTER → 2016-08-23 | Outpatient (REF) ==
[~2016-08-23] MED LIST changes: +ACAR100T PO; +ATEN50TA2 PO; +BENZ5TA PO; +BREO1INH INH; +COLA100C3 PO; +DOXY100T PO; +HALO5TA PO; +INSULANT SC; +LEG1TAB PO; +NITR4TASL SL; +PLAV75TA38 PO; +SIMV20TA2 PO; +TYLE325T5 PO; +WARF-21 PO; +ZIPR80CA12 PO
[2016-08-23 14:34] LABS: INR 2.04
== END ==
LOC: SKLAB2 13:56
DX: I48.91 Unspecified atrial fibrillation (principal)

== ENCOUNTER → 2016-08-26 | Outpatient (REF) ==
[2016-08-26 09:51] LABS: MEAN CORPUSCULAR HGB CONC 32.4 g/dl (32.0-36.5); MEAN CORPUSCULAR VOLUME 92.4 fl (80.0-96.0); RED CELL DISTRIBUTION WIDTH 14.5 % (11.5-14.5)
[2016-08-26 09:58] LABS: INR 2.07
[2016-08-26 10:18] LABS: CALCIUM LEVEL 9.1 MG/DL (8.8-10.2); CREATININE FOR GFR 2.14 MG/DL (0.70-1.30); GLOMERULAR FILTRATION RATE 33.1 (>49); POTASSIUM SERUM 4.6 MEQ/L (3.5-5.1)
== END ==
LOC: SKLAB2 09:00
DX: I82.91 Chronic embolism and thrombosis of unspecified vein (principal)

== ENCOUNTER → 2016-09-02 | Outpatient (REF) ==
[2016-09-02 09:23] LABS: INR 3.03
== END ==
LOC: SKLAB2 07:30
DX: Z79.01 Long term (current) use of anticoagulants (principal)

== ENCOUNTER → 2016-09-05 | Outpatient (REF) | payer MEDICARE, MEDICAID ==
[~2016-09-05] MED LIST changes: +ACET-654 PO; +COUM6TAB PO; +DULC10SU2 PR; +ENEMENE3 PR; +MILKSUS PO; +SIMV10TA2 PO; +VITMTA PO; +WARF05TA PO; +WARF4TAB52 PO
== END ==
LOC: SKLAB2 11:22
DX: L98.499 Non-pressure chronic ulcer of skin of other sites with unspecified severity (principal); A49.8 Other bacterial infections of unspecified site; A49.1 Streptococcal infection, unspecified site

== ENCOUNTER → 2016-09-06 | Outpatient (REF) | payer MEDICAID, MEDICARE ==
[2016-09-06 09:29] LABS: BASO % 0.4 % (0.0-1.0); EOS # 0.3 K/mm3 (0.0-0.50); EOS % 2.3 % (0.0-3.0); LARGE UNSTAINED CELL # 0.4 K/mm3 (0.0-0.4); LARGE UNSTAINED CELL % 2.7 % (0.0-4.0); LYMPH # 1.2 K/mm3 (1.5-4.5); LYMPH % 9.2 % (24.0-44.0); MEAN CORPUSCULAR HEMOGLOBIN 30.3 pg (27.0-33.0); MEAN CORPUSCULAR HGB CONC 32.7 g/dl (32.0-36.5); MEAN CORPUSCULAR VOLUME 92.7 fl (80.0-96.0); MONO # 0.7 K/mm3 (0.0-0.8); MONO % 5.7 % (0.0-5.0); NEUTROPHILS # 10.3 K/mm3 (1.8-7.7); NEUTROPHILS % 79.6 % (36.0-66.0); PLATELET COUNT, AUTOMATED 231 k/mm3 (150-450); RED CELL DISTRIBUTION WIDTH 14.5 % (11.5-14.5); WHITE BLOOD COUNT 12.9 K/mm3 (4.0-10.0)
[2016-09-06 09:46] LABS: CALCIUM LEVEL 8.7 MG/DL (8.8-10.2); CREATININE FOR GFR 2.03 MG/DL (0.70-1.30); GLOMERULAR FILTRATION RATE 35.2 (>49); POTASSIUM SERUM 4.3 MEQ/L (3.5-5.1)
== END ==
LOC: SKLAB2 08:00
DX: L98.499 Non-pressure chronic ulcer of skin of other sites with unspecified severity (principal)

== ENCOUNTER → 2016-09-09 | Outpatient (REF) ==
[2016-09-09 09:12] LABS: INR 3.12
--- NOTE | 2016-09-10 00:56 | ECGEPIP ---
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
== END ==
LOC: SKLAB2 13:50
DX: I82.91 Chronic embolism and thrombosis of unspecified vein (principal)

== ENCOUNTER 2016-09-14 15:18 | Inpatient (IN) | payer MEDICARE, MEDICAID ==
[~2016-09-14] VITALS: Ht 171.4 cm; Wt 111.5 kg
[~2016-09-14 15:18] MED LIST changes: -ACET-654 PO; +BENZ0.5T; +BENZ0.5T PO; -BENZ5TA; -BENZ5TA PO; -COLA100C3 PO; +COLA100C5 PO; -COUM6TAB PO; -DULC10SU2 PR; -ENEMENE3 PR; -MILKSUS PO; +PLAV1TAB2 PO; -PLAV75TA38 PO; -SIMV10TA2 PO; -VITMTA PO; -WARF05TA PO; -WARF4TAB52 PO
[2016-09-14 16:00] VITALS: BP 150/80
[2016-09-14] MEDS ORDERED: BISACODYL 10 MG SUPP PR PRN (18:00)
[2016-09-14] MEDS ORDERED: MOM 30ML SUSPENSION UDC PO PRN (18:00)
[2016-09-14] MEDS ORDERED: ACET1TAB17 PO (18:04)
[2016-09-14] MEDS ORDERED: VITMTA PO (18:04)
[2016-09-14] MEDS ORDERED: DULC10SU2 PR (18:04)
[2016-09-14] MEDS ORDERED: MILKSUS PO (18:04)
[2016-09-14] MEDS ORDERED: ENEMENE16 PR (18:04)
[2016-09-14] MEDS ORDERED: SIMV10TA2 PO (18:04)
[2016-09-14] MEDS ORDERED: WARF4TAB52 PO (18:04)
[2016-09-14] MEDS ORDERED: WARF05TA PO (18:07)
[2016-09-14] MEDS ORDERED: COUM6TAB PO (18:07)
[2016-09-14 18:32] LABS: INR 2.33
[2016-09-14 18:33] LABS: BASO % 0.4 % (0.0-1.0); EOS # 0.2 K/mm3 (0.0-0.50); EOS % 1.7 % (0.0-3.0); LARGE UNSTAINED CELL # 0.2 K/mm3 (0.0-0.4); LARGE UNSTAINED CELL % 1.6 % (0.0-4.0); LYMPH # 1.7 K/mm3 (1.5-4.5); LYMPH % 15.6 % (24.0-44.0); MEAN CORPUSCULAR HEMOGLOBIN 30.7 pg (27.0-33.0); MEAN CORPUSCULAR HGB CONC 33.8 g/dl (32.0-36.5); MEAN CORPUSCULAR VOLUME 90.8 fl (80.0-96.0); MONO # 0.6 K/mm3 (0.0-0.8); MONO % 6.5 % (0.0-5.0); NEUTROPHILS # 7.3 K/mm3 (1.8-7.7); NEUTROPHILS % 74.3 % (36.0-66.0); PLATELET COUNT, AUTOMATED 261 k/mm3 (150-450); RED CELL DISTRIBUTION WIDTH 14.7 % (11.5-14.5); WHITE BLOOD COUNT 9.8 K/mm3 (4.0-10.0)
[2016-09-14 19:20] LABS: ALBUMIN 1.9 GM/DL (3.2-5.2); ALBUMIN/GLOBULIN RATIO 0.53 (1.00-1.93); ALKALINE PHOSPHATASE 80 U/L (45-117); ALT/SGPT 26 U/L (12-78); ANION GAP 7 MEQ/L (8-16); AST/SGOT 15 U/L (15-37); BILIRUBIN,DIRECT < 0.1 MG/DL (0.0-0.2); BILIRUBIN,TOTAL 0.2 MG/DL (0.2-1.0); BLOOD UREA NITROGEN 35 MG/DL (7-18); CALCIUM LEVEL 9.2 MG/DL (8.8-10.2); CARBON DIOXIDE LEVEL 28 MEQ/L (21-32); CHLORIDE LEVEL 103 MEQ/L (98-107); CREATININE FOR GFR 2.27 MG/DL (0.70-1.30); GLOMERULAR FILTRATION RATE 30.9 (>49); GLUCOSE, FASTING 224 MG/DL (80-110); POTASSIUM SERUM 4.2 MEQ/L (3.5-5.1); SODIUM LEVEL 138 MEQ/L (136-145); TOTAL PROTEIN 5.5 GM/DL (6.4-8.2)
[2016-09-14] MEDS: PIPERACILLIN/TAZOBACTAM SOD 3.375 GM in D5W MINI-BAG PLUS 50 ML IV SCH (19:29)
--- NOTE | 2016-09-14 19:40 | REP ---
Clinical: Preoperative assessment . Comparison: 08/10/2016 . Technique: AP and lateral. Findings: The mediastinum and cardiac silhouette are normal. The lung garcia are clear and without acute consolidation, effusion, or pneumothorax. The skeletal structures are intact and normal. Impression: 1. No acute cardiopulmonary process. Signed by Fredy Unger MD 09/14/2016 07:31 P
[2016-09-14] MEDS: DOCUSATE SODIUM 100 MG CAP PO SCH (20:14)
[2016-09-14] MEDS: SENOKOT S TAB PO SCH (20:14)
[2016-09-14 21:55] VITALS: BP 170/72
[2016-09-14 22:00] VITALS: BP 154/85
[2016-09-15] MEDS: PIPERACILLIN/TAZOBACTAM SOD 3.375 GM in D5W MINI-BAG PLUS 50 ML IV SCH ×5 (00:38→22:14)
[2016-09-15 06:00] VITALS: BP 162/80
--- NOTE | 2016-09-15 07:50 | ECGEPIP ---
Stationary ECG Study [facility] Test Date: 2016-09-14 Pat Name: MICHAEL ALVAREZ Department: Room: [place] [address] Gender: M Professional System Administrator: SAGRARIO : 1950 Requested By: Eugene Ribeiro Order Number: [id number] Reading MD: Neftali Zamarripa Measurements Intervals [place] Rate: 73 P: 26 NV: 159 QRS: -32 QRSD: 98 T: 62 QT: 399 QTc: 442 Interpretive Statements SINUS RHYTHM LEFT AXIS DEVIATION INFERIOR WALL MYOCARDIAL INFARCTION, OLD NONSPECIFIC T-WAVE ABNORMALITY SIMILAR TO 09/09/16 Electronically Signed On 09-15-2016 7:49:41 EDT by Neftali Zamarripa
[2016-09-15] MEDS ORDERED: FLEET ENEMA PR PRN (08:00)
[2016-09-15] MEDS ORDERED: NITROGLYCERIN 0.4 MG SUBL TABLET SL PRN (08:00)
[2016-09-15 08:18] LABS: INR 2.11
[2016-09-15] MEDS: MULTIVITAMINS/MINERALS THERAP 1 TAB PO SCH (09:35)
[2016-09-15] MEDS: CLOPIDOGREL 75 MG TAB PO SCH (09:35)
[2016-09-15] MEDS: ZIPRASIDONE 80 MG CAP (GEODON) PO SCH ×2 (09:36→22:20)
[2016-09-15] MEDS: ATENOLOL 50 MG TAB PO SCH (09:36)
[2016-09-15] MEDS: SENOKOT S TAB PO SCH ×2 (09:36→22:19)
[2016-09-15] MEDS: LEVEMIR (INSULIN DETEMIR) 1 UNITS/0.01ML SC SCH ×2 (09:37→22:18)
[2016-09-15] MEDS: DOCUSATE SODIUM 100 MG CAP PO SCH ×2 (09:37→22:19)
[2016-09-15] MEDS: HALOPERIDOL 5 MG TAB PO SCH (09:37)
[2016-09-15] MEDS: DAKIN'S 0.25% HALF-STRENGTH SOLN 480 ML TOP SCH ×4 (09:38→23:11)
[2016-09-15] MEDS ORDERED: GLUCOSE 4 GM CHEW TABLET PO PRN (09:45)
[2016-09-15] MEDS ORDERED: GLUCAGON FOR INJ 1 MG VIAL (J1610) SC PRN (09:45)
[2016-09-15] MEDS ORDERED: DEXTROSE 50% 50 ML SYRINGE IV PRN (09:45)
[2016-09-15] MEDS: HumaLOG INSULIN (NovoLOG) PER UNIT SC SCH ×3 (12:49→21:00)
[2016-09-15 14:00] VITALS: BP 140/75
[2016-09-15] MEDS ORDERED: MIDAZOLAM INJ 2 MG/2 ML VIAL (J2250) As Ordered ONE (19:41)
[2016-09-15] MEDS ORDERED: fentaNYL 100 MCG/2 ML INJECTION (J3010) As Ordered ONE (19:41)
[2016-09-15] MEDS ORDERED: LIDOCAINE 2% INJ 100 MG/5 ML SDV (FOR ANES.) As Ordered ONE (19:49)
[2016-09-15] MEDS ORDERED: PROPOFOL 200 MG/20 ML VIAL As Ordered ONE ×2 (19:49→19:50)
[2016-09-15] MEDS ORDERED: ONDANSETRON 4MG/2ML VIAL (J2405) As Ordered ONE (20:15)
[2016-09-15 21:45] VITALS: BP 150/80
[2016-09-15 22:15] VITALS: BP 134/70
[2016-09-15] MEDS: WARFARIN SOD 3 MG TAB PO SCH (22:18)
[2016-09-15] MEDS: SIMVASTATIN 20 MG TAB PO SCH (22:19)
[2016-09-15] MEDS: WARFARIN SOD 1 MG TAB PO SCH (22:19)
[2016-09-15] MEDS: ACETAMINOPHEN TAB 650MG DOSE (2X325MG) PO PRN (22:19)
[2016-09-15] MEDS: BENZTROPINE 0.5 MG TAB PO SCH (22:20)
[2016-09-15 23:15] VITALS: BP 140/60
[2016-09-16 00:15] VITALS: BP 144/72
[2016-09-16] MEDS: DAKIN'S 0.25% HALF-STRENGTH SOLN 480 ML TOP SCH ×2 (05:30→12:59)
[2016-09-16] MEDS: PIPERACILLIN/TAZOBACTAM SOD 3.375 GM in D5W MINI-BAG PLUS 50 ML IV SCH ×3 (05:30→17:21)
[2016-09-16 06:00] VITALS: BP 155/70
[2016-09-16 08:49] LABS: INR 1.68
[2016-09-16] MEDS: CLOPIDOGREL 75 MG TAB PO SCH (09:12)
[2016-09-16] MEDS: MULTIVITAMINS/MINERALS THERAP 1 TAB PO SCH (09:12)
[2016-09-16] MEDS: ATENOLOL 50 MG TAB PO SCH (09:12)
[2016-09-16] MEDS: ZIPRASIDONE 80 MG CAP (GEODON) PO SCH ×2 (09:13→20:30)
[2016-09-16] MEDS: SENOKOT S TAB PO SCH ×2 (09:13→20:30)
[2016-09-16] MEDS: HALOPERIDOL 5 MG TAB PO SCH (09:13)
[2016-09-16] MEDS: LEVEMIR (INSULIN DETEMIR) 1 UNITS/0.01ML SC SCH ×2 (09:13→20:31)
[2016-09-16] MEDS: HumaLOG INSULIN (NovoLOG) PER UNIT SC SCH ×4 (09:13→20:34)
[2016-09-16] MEDS: DOCUSATE SODIUM 100 MG CAP PO SCH ×2 (09:13→20:30)
--- NOTE | 2016-09-16 10:08 | HPE ---
DATE OF ADMISSION: 09/14/2016 CHIEF COMPLAINT: Infected and draining left femoral wound. HISTORY OF PRESENT ILLNESS: The patient is a 66-year-old male who underwent a left 5th to amputation secondary to osteomyelitis and developed cellulitis, pain, and gangrene of the amputation site, was admitted through the emergency room. Vascular surgical consultation was obtained, and angiography performed, showing severe left common femoral, superficial femoral, and profunda femoris artery occlusive disease. The angiography was limited due to the patient's chronic renal insufficiency. The patient subsequently underwent a left femoral endartarectomy with patch angioplasty with good yarsani of flow to his left lower extremity with resolution of his pain and significant improvement in the perfusion of his left foot and toes. The patient underwent revision of his left 5th amputation site with resection of the left 5th metatarsal head and debridement of the wound. The patient was discharged to [facility] and has had difficulty with healing of his left groin wound due to continued maceration and overlying panus in the inguinal region, preventing healing of the wound. The wound has now opened, and there is necrotic tissue within the wound, as well as a large amount of serous drainage. The patient will require admission for treatment of his wound with subsequent debridement and placement of a vacuum-assisted closure (VAC) dressing. The patient denies any pain or claudication. No transient ischemic attacks (TIAs) or amaurosis fugax No dysarthria. No paralysis or paresis of an extremity. No chest pain and no shortness of breath. No nausea, vomiting, fevers, or chills. PAST MEDICAL HISTORY: 1. Diabetes mellitus, which is poorly controlled, as the patient is extremely noncompliant. 2. Chronic obstructive pulmonary disease. 3. Hypertension. 4. History of deep venous thrombosis (DVT). 5. Myocardial infarction. 6. Coronary artery disease, status post stenting. 7. Peripheral neuropathy. 8. Schizoaffective disorder. 9. Status post right below-knee amputation after a failed right femoral to popliteal artery bypass graft in 2001. 10. Chronic renal insufficiency. PAST SURGICAL HISTORY: 1. Spine infection in the 1960s. 2. Right femoral to popliteal artery bypass grafting in 2001. 3. Right above-knee amputation in 2001. 4. Left femoral endartarectomy in July of 2016. 5. Left 5th metatarsal head amputation in July of 2016. FAMILY HISTORY: Coronary artery disease and diabetes mellitus. SOCIAL HISTORY: The patient has not smoked since being admitted to the hospital in July with the cellulitis and gangrene of his left 5th toe amputation site. Prior to this, he was counseled about seeking tobacco abuse cessation, and he was not interested in quitting at that time. REVIEW OF SYSTEMS: HEENT: The patient has cataracts. NEUROLOGICAL: Negative. SKIN: Negative. LYMPHOPOIETIC: Negative. CARDIAC: Negative. PULMONARY: Negative. GASTROINTESTINAL: Negative. GENITOURINARY: Negative. MUSCULOSKELETAL: Negative. ENDOCRINE: Significant for type 2 diabetes. PSYCHOSOCIAL: History of schizoaffective disorder. HEMATOLOGIC: Negative. PERIPHERAL VASCULAR: History of right above-knee amputation after failed right femoral to popliteal artery bypass graft, recent left femoral endarterectomy, and left 5th toe amputation with subsequent gangrene requiring revascularization. PHYSICAL EXAMINATION: Afebrile. Vital signs stable. NEUROLOGIC: Awake, alert, oriented times three. No focal deficits. GENERAL: Well-nourished, well-developed, in no apparent distress. HEART: Is regular rate and rhythm with no murmurs, rubs, or gallops. LUNGS: Are clear to auscultation bilaterally with no rhonchi, wheezes, or crackles. ABDOMEN: Is soft, obese, nontender, nondistended, with no palpable pulsatile masses. UPPER EXTREMITIES: Show 2+ brachial, radial, and ulnar pulses with good perfusion of the upper extremities. Lower extremities show a well-healed right above-knee amputation. The left lower extremity shows good perfusion with Doppler, both dorsalis pedis and posterior tibial pulses. The toes show dry ischemic ulcers, which are healing well, and there is good capillary refill in the left 1st through 4th toes. The amputation site of the 5th toe shows some fibrinous exudate at the base of the wound with granulation tissue around the periphery of the wound. The left inguinal incisions show breakdown of the skin with naga in place. In the deep portion of the wound, there is fibrinous exudate and necrotic tissue with serous drainage. There is no purulent discharge and no signs of cellulitis. LYMPHOPOIETIC: There is no lymphadenopathy in the cervical, axillary, or inguinal regions. PSYCHOLOGIC: The patient is in good mood with no obvious psychological issues at this time. ASSESSMENT AND PLAN: The patient is a 66-year-old male with significant history of diabetes, peripheral vascular disease, tobacco abuse, noncompliance, and previous amputation of the right lower extremity with cellulitis and gangrene of the left foot after undergoing a left 5th toe amputation. The patient subsequently underwent revascularization with a left femoral endarterectomy with better perfusion of his left lower extremity but now has breakdown of the incisions in the left inguinal region. The patient will be admitted to the hospital, started on intravenous (IV) antibiotics, and undergo surgical debridement of the left inguinal wounds with placement of a vacuum-assisted closure (VAC) dressing. The patient will continue with wet-to-dry dressings to the left 5th toe amputation site and may require debridement of this wound, as well. The inguinal wound will be addressed first.
--- NOTE | 2016-09-16 12:10 | RO ---
DATE OF PROCEDURE: 09/15/2016 PREPROCEDURE DIAGNOSIS: Left groin wound infection. POSTPROCEDURE DIAGNOSIS: Left groin wound infection. PROCEDURE: Left groin wound excisional debridement with debridement of skin, subcutaneous tissue, adipose tissue and muscle. The wound measures approximately 11 cm x 11 cm x 6 cm in depth. SURGEON: Dr. Eugene Jeffers. PALS SPECIALIST: None. ANESTHESIA: MAC. ESTIMATED BLOOD LOSS: 50 mL. IV FLUID: 500 mL Crystalloid. SPECIMEN: Deep tissue culture for culture and sensitivity. IMPLANTS: Left inguinal wound Vac placement. COMPLICATIONS: None. INDICATION: Patient is a 66-year-old male who was initially evaluated for Gangrene and ischemia and cellulitis of the left foot with osteomyelitis at the site of a left fifth toe amputation. Patient underwent angiography and was noted to have severe atherosclerotic arterial occlusive disease in his femoral artery and subsequently underwent a left common femoral, superficial femoral and profunda femoris artery endarterectomy with good flow into his left foot established. The patient was discharged and now follows up with a dehiscence of his wound and necrotic tissue and infection in the wound. The patient has a large pannus which overhangs the inguinal region and has caused the incisions in the inguinal region to be nonhealing and subsequently resulted in breakdown of the wound. Patient will undergo debridement with placement of Vac dressing. Risks, benefits, and alternative treatment options were discussed with the patient. Alternative treatment options included but were not limited no intervention. Risks included but were not limited to infection, bleeding, possible need for further surgical intervention, cerebrovascular accident, myocardial infarction, pulmonary embolus, deep venous thrombosis (DVT), loss of limb, loss of life and poor outcome. Patient understands, accepts these risks and consents to proceed. PROCEDURE: The patient was taken to the operating room and placed supine on the operating room table and then prepped and draped in a standard surgical fashion after a time out was performed confirming the procedure and the patient. The wound was then evaluated and all nonviable skin, subcutaneous tissue, adipose tissue and muscle were sharply debrided using Metzenbaum scissors. This was performed down to good healthy bleeding tissue. The femoral artery and the patch angioplasty were not exposed or visible. Once the debridement had been performed and a deep tissue culture obtained, the Vac dressing was then placed and connected to the Vac machine. Patient tolerated the procedure well. All instrument, sponge and needle counts were correct at the end of the case. There were no complications. Dr. Jeffers was present for and directed the entire case. Patient was transferred to the recovery room in stable condition.
--- NOTE | 2016-09-16 12:35 | IPN ---
DATE: 09/16/2016 SUBJECTIVE: The patient has no complaints. No chest pain or shortness of breath. No nausea, vomiting, fevers or chills. No left lower extremity pain. The patient notes the Vac dressing has been in place with no difficulties overnight. OBJECTIVE: The patient is afebrile with stable vital signs. Heart is regular rate and rhythm. Lungs are clear to auscultation. Abdomen is soft, nontender, nondistended. Extremities: Left lower extremity is well perfused. The Vac dressing is in place in the groin area with no difficulties. The left fifth toe amputation site is undergoing wet-to-dry dressing and shows some fibrinous exudate at the base, but the circumferential portion of the wound shows some granulation tissue with good perfusion. ASSESSMENT AND PLAN: The patient is a 66-year-old male with severe peripheral vascular disease who underwent a left femoral endarterectomy with patch angioplasty with improved flow into the left lower extremity who had developed a wound infection. He underwent placement of a Vac after undergoing debridement of the wound. The wound shows good healing tissue deep and in the periphery with some necrotic tissue which was removed. There was no exposure of his femoral endarterectomy or the femoral artery. The Vac was placed without difficulty. The left fifth toe amputation site will require debridement and this will be done in the next 1-2 days once the patient has stabilized from his Vac placement and debridement of his left groin. The patient will continue with wet-to-dry dressing changes to the left fifth toe amputation site with Dakin solution, Vac dressing in the left groin wound and antibiotic therapy with Zosyn.
[2016-09-16 14:00] VITALS: BP 162/80
[2016-09-16] MEDS: WARFARIN SOD 3 MG TAB PO SCH (20:30)
[2016-09-16] MEDS: BENZTROPINE 0.5 MG TAB PO SCH (20:30)
[2016-09-16] MEDS: SIMVASTATIN 20 MG TAB PO SCH (20:30)
[2016-09-16] MEDS: WARFARIN SOD 1 MG TAB PO SCH (20:31)
[2016-09-16 22:00] VITALS: BP 173/75
[2016-09-17] MEDS: PIPERACILLIN/TAZOBACTAM SOD 3.375 GM in D5W MINI-BAG PLUS 50 ML IV SCH ×5 (00:46→23:59)
[2016-09-17] MEDS: DAKIN'S 0.25% HALF-STRENGTH SOLN 480 ML TOP SCH ×4 (00:46→20:47)
[2016-09-17 06:00] VITALS: BP 173/75
[2016-09-17 06:27] LABS: MEAN CORPUSCULAR HEMOGLOBIN 31.7 pg (27.0-33.0); MEAN CORPUSCULAR HGB CONC 34.4 g/dl (32.0-36.5); MEAN CORPUSCULAR VOLUME 92.4 fl (80.0-96.0); WHITE BLOOD COUNT 9.8 K/mm3 (4.0-10.0)
[2016-09-17 06:50] LABS: CALCIUM LEVEL 8.9 MG/DL (8.8-10.2); CREATININE FOR GFR 2.47 MG/DL (0.70-1.30); POTASSIUM SERUM 4.1 MEQ/L (3.5-5.1)
[2016-09-17] MEDS: CLOPIDOGREL 75 MG TAB PO SCH (07:43)
[2016-09-17] MEDS: DOCUSATE SODIUM 100 MG CAP PO SCH ×2 (07:43→20:46)
[2016-09-17] MEDS: ATENOLOL 50 MG TAB PO SCH (07:43)
[2016-09-17] MEDS: ZIPRASIDONE 80 MG CAP (GEODON) PO SCH ×2 (07:43→20:45)
[2016-09-17] MEDS: HALOPERIDOL 5 MG TAB PO SCH (07:43)
[2016-09-17] MEDS: HumaLOG INSULIN (NovoLOG) PER UNIT SC SCH ×4 (07:44→20:45)
[2016-09-17] MEDS: MULTIVITAMINS/MINERALS THERAP 1 TAB PO SCH (07:44)
[2016-09-17] MEDS: SENOKOT S TAB PO SCH ×2 (07:44→20:45)
[2016-09-17] MEDS: LEVEMIR (INSULIN DETEMIR) 1 UNITS/0.01ML SC SCH ×2 (07:44→20:45)
[2016-09-17 14:00] VITALS: BP 151/76
[2016-09-17] MEDS: BENZTROPINE 0.5 MG TAB PO SCH (20:45)
[2016-09-17] MEDS: SIMVASTATIN 20 MG TAB PO SCH (20:46)
[2016-09-17] MEDS: WARFARIN SOD 1 MG TAB PO SCH (20:46)
[2016-09-17] MEDS: WARFARIN SOD 3 MG TAB PO SCH (20:46)
[2016-09-17 22:00] VITALS: BP 132/62
[2016-09-18] MEDS: DAKIN'S 0.25% HALF-STRENGTH SOLN 480 ML TOP SCH ×3 (05:38→20:03)
[2016-09-18] MEDS: PIPERACILLIN/TAZOBACTAM SOD 3.375 GM in D5W MINI-BAG PLUS 50 ML IV SCH ×3 (05:38→18:27)
[2016-09-18 06:00] VITALS: BP 157/70
[2016-09-18 09:08] VITALS: BP 144/60
[2016-09-18] MEDS: ZIPRASIDONE 80 MG CAP (GEODON) PO SCH ×2 (10:08→20:01)
[2016-09-18] MEDS: CLOPIDOGREL 75 MG TAB PO SCH (10:08)
[2016-09-18] MEDS: ATENOLOL 50 MG TAB PO SCH (10:08)
[2016-09-18] MEDS: HALOPERIDOL 5 MG TAB PO SCH (10:09)
[2016-09-18] MEDS: MULTIVITAMINS/MINERALS THERAP 1 TAB PO SCH (10:09)
[2016-09-18] MEDS: SENOKOT S TAB PO SCH ×2 (10:11→20:05)
[2016-09-18] MEDS: HumaLOG INSULIN (NovoLOG) PER UNIT SC SCH ×4 (10:11→20:02)
[2016-09-18] MEDS: DOCUSATE SODIUM 100 MG CAP PO SCH ×2 (10:11→20:05)
[2016-09-18] MEDS: LEVEMIR (INSULIN DETEMIR) 1 UNITS/0.01ML SC SCH ×2 (10:11→20:02)
[2016-09-18 11:37] LABS: MEAN CORPUSCULAR HGB CONC 32.6 g/dl (32.0-36.5); RED CELL DISTRIBUTION WIDTH 15.1 % (11.5-14.5); WHITE BLOOD COUNT 9.6 K/mm3 (4.0-10.0)
[2016-09-18 12:06] LABS: INR 1.9
[2016-09-18 12:07] LABS: CALCIUM LEVEL 8.6 MG/DL (8.8-10.2); CREATININE FOR GFR 2.31 MG/DL (0.70-1.30); GLOMERULAR FILTRATION RATE 30.3 (>49)
[2016-09-18 14:00] VITALS: BP 157/74
[2016-09-18] MEDS: WARFARIN SOD 3 MG TAB PO SCH (20:01)
[2016-09-18] MEDS: BENZTROPINE 0.5 MG TAB PO SCH (20:01)
[2016-09-18] MEDS: SIMVASTATIN 20 MG TAB PO SCH (20:02)
[2016-09-18] MEDS: WARFARIN SOD 1 MG TAB PO SCH (20:02)
[2016-09-18] MEDS: ACETAMINOPHEN TAB 650MG DOSE (2X325MG) PO PRN (20:04)
[2016-09-18 22:00] VITALS: BP 166/76
[2016-09-19] MEDS: PIPERACILLIN/TAZOBACTAM SOD 3.375 GM in D5W MINI-BAG PLUS 50 ML IV SCH ×4 (00:18→17:27)
[2016-09-19] MEDS: DAKIN'S 0.25% HALF-STRENGTH SOLN 480 ML TOP SCH ×3 (05:27→21:47)
[2016-09-19 06:00] VITALS: BP 140/63
[2016-09-19] MEDS: ZIPRASIDONE 80 MG CAP (GEODON) PO SCH ×2 (08:30→21:47)
[2016-09-19] MEDS: ATENOLOL 50 MG TAB PO SCH (08:30)
[2016-09-19] MEDS: CLOPIDOGREL 75 MG TAB PO SCH (08:36)
[2016-09-19] MEDS: HALOPERIDOL 5 MG TAB PO SCH (08:36)
[2016-09-19] MEDS: MULTIVITAMINS/MINERALS THERAP 1 TAB PO SCH (08:36)
[2016-09-19] MEDS: SENOKOT S TAB PO SCH ×2 (08:40→21:46)
[2016-09-19] MEDS: DOCUSATE SODIUM 100 MG CAP PO SCH ×2 (08:40→21:47)
[2016-09-19] MEDS: HumaLOG INSULIN (NovoLOG) PER UNIT SC SCH ×4 (08:41→21:00)
[2016-09-19] MEDS: LEVEMIR (INSULIN DETEMIR) 1 UNITS/0.01ML SC SCH ×2 (08:41→21:48)
[2016-09-19 14:00] VITALS: BP 160/70
[2016-09-19] MEDS: BENZTROPINE 0.5 MG TAB PO SCH (21:46)
[2016-09-19] MEDS: WARFARIN SOD 3 MG TAB PO SCH (21:46)
[2016-09-19] MEDS: SIMVASTATIN 20 MG TAB PO SCH (21:46)
[2016-09-19] MEDS: WARFARIN SOD 1 MG TAB PO SCH (21:46)
[2016-09-19 22:00] VITALS: BP 134/60
[2016-09-20] MEDS: PIPERACILLIN/TAZOBACTAM SOD 3.375 GM in D5W MINI-BAG PLUS 50 ML IV SCH ×4 (00:28→18:11)
[2016-09-20 06:00] VITALS: BP 132/64
[2016-09-20] MEDS: DAKIN'S 0.25% HALF-STRENGTH SOLN 480 ML TOP SCH ×3 (06:19→21:25)
[2016-09-20] MEDS: HumaLOG INSULIN (NovoLOG) PER UNIT SC SCH ×4 (07:58→21:22)
[2016-09-20] MEDS: LEVEMIR (INSULIN DETEMIR) 1 UNITS/0.01ML SC SCH ×2 (07:58→21:21)
[2016-09-20] MEDS: ZIPRASIDONE 80 MG CAP (GEODON) PO SCH ×2 (07:59→21:22)
[2016-09-20] MEDS: SENOKOT S TAB PO SCH ×2 (07:59→21:23)
[2016-09-20] MEDS: CLOPIDOGREL 75 MG TAB PO SCH (07:59)
[2016-09-20] MEDS: HALOPERIDOL 5 MG TAB PO SCH (07:59)
[2016-09-20] MEDS: DOCUSATE SODIUM 100 MG CAP PO SCH ×2 (07:59→21:24)
[2016-09-20] MEDS: ATENOLOL 50 MG TAB PO SCH (07:59)
[2016-09-20] MEDS: MULTIVITAMINS/MINERALS THERAP 1 TAB PO SCH (08:00)
[2016-09-20 14:00] VITALS: BP 150/68
[2016-09-20] MEDS: WARFARIN SOD 3 MG TAB PO SCH (21:23)
[2016-09-20] MEDS: WARFARIN SOD 1 MG TAB PO SCH (21:23)
[2016-09-20] MEDS: SIMVASTATIN 20 MG TAB PO SCH (21:24)
[2016-09-20] MEDS: BENZTROPINE 0.5 MG TAB PO SCH (21:24)
[2016-09-20 22:00] VITALS: BP 166/77
[2016-09-21] MEDS: PIPERACILLIN/TAZOBACTAM SOD 3.375 GM in D5W MINI-BAG PLUS 50 ML IV SCH ×4 (00:24→17:10)
[2016-09-21 06:00] VITALS: BP 150/81
[2016-09-21] MEDS: DAKIN'S 0.25% HALF-STRENGTH SOLN 480 ML TOP SCH (06:08)
[2016-09-21 06:45] LABS: MEAN CORPUSCULAR HEMOGLOBIN 30.6 pg (27.0-33.0); MEAN CORPUSCULAR HGB CONC 33.1 g/dl (32.0-36.5); MEAN CORPUSCULAR VOLUME 92.3 fl (80.0-96.0); RED CELL DISTRIBUTION WIDTH 14.9 % (11.5-14.5); WHITE BLOOD COUNT 9.4 K/mm3 (4.0-10.0)
[2016-09-21 06:47] LABS: INR 1.86
[2016-09-21 06:53] LABS: CALCIUM LEVEL 9.1 MG/DL (8.8-10.2); CREATININE FOR GFR 2.18 MG/DL (0.70-1.30); GLOMERULAR FILTRATION RATE 32.4 (>49)
[2016-09-21] MEDS: HumaLOG INSULIN (NovoLOG) PER UNIT SC SCH ×4 (08:14→20:03)
[2016-09-21] MEDS: LEVEMIR (INSULIN DETEMIR) 1 UNITS/0.01ML SC SCH ×2 (08:15→21:47)
[2016-09-21] MEDS: CLOPIDOGREL 75 MG TAB PO SCH (08:16)
[2016-09-21] MEDS: MULTIVITAMINS/MINERALS THERAP 1 TAB PO SCH (08:16)
[2016-09-21] MEDS: ATENOLOL 50 MG TAB PO SCH (08:16)
[2016-09-21] MEDS: ZIPRASIDONE 80 MG CAP (GEODON) PO SCH ×2 (08:16→21:47)
[2016-09-21] MEDS: HALOPERIDOL 5 MG TAB PO SCH (08:16)
[2016-09-21] MEDS: SENOKOT S TAB PO SCH ×2 (08:17→21:48)
[2016-09-21] MEDS: DOCUSATE SODIUM 100 MG CAP PO SCH ×2 (08:17→21:47)
[2016-09-21 14:00] VITALS: BP 142/60
[2016-09-21] MEDS ORDERED: WARFARIN SOD 3 MG TAB PO ONE (17:00)
[2016-09-21] MEDS: SIMVASTATIN 20 MG TAB PO SCH (21:48)
[2016-09-21] MEDS: BENZTROPINE 0.5 MG TAB PO SCH (21:48)
[2016-09-21] MEDS: SANTYL OINT 30GM TOP SCH (21:49)
[2016-09-21] MEDS: WARFARIN SOD 3 MG TAB PO SCH (21:49)
[2016-09-21] MEDS: WARFARIN SOD 1 MG TAB PO SCH (21:50)
[2016-09-21 22:00] VITALS: BP 150/82
[2016-09-22] MEDS: PIPERACILLIN/TAZOBACTAM SOD 3.375 GM in D5W MINI-BAG PLUS 50 ML IV SCH ×4 (00:07→17:58)
[2016-09-22] MEDS: ACETAMINOPHEN TAB 650MG DOSE (2X325MG) PO PRN (03:35)
[2016-09-22 06:00] VITALS: BP 143/65
[2016-09-22 07:11] LABS: INR 1.83
[2016-09-22] MEDS: SENOKOT S TAB PO SCH ×2 (10:11→21:13)
[2016-09-22] MEDS: MULTIVITAMINS/MINERALS THERAP 1 TAB PO SCH (10:11)
[2016-09-22] MEDS: CLOPIDOGREL 75 MG TAB PO SCH (10:11)
[2016-09-22] MEDS: HALOPERIDOL 5 MG TAB PO SCH (10:11)
[2016-09-22] MEDS: ZIPRASIDONE 80 MG CAP (GEODON) PO SCH ×2 (10:11→21:13)
[2016-09-22] MEDS: ATENOLOL 50 MG TAB PO SCH (10:12)
[2016-09-22] MEDS: HumaLOG INSULIN (NovoLOG) PER UNIT SC SCH ×4 (10:12→21:00)
[2016-09-22] MEDS: LEVEMIR (INSULIN DETEMIR) 1 UNITS/0.01ML SC SCH ×2 (10:13→21:15)
[2016-09-22] MEDS: SANTYL OINT 30GM TOP SCH ×2 (10:13→21:15)
[2016-09-22] MEDS: DOCUSATE SODIUM 100 MG CAP PO SCH ×2 (10:14→21:14)
[2016-09-22 14:00] VITALS: BP 154/74
[2016-09-22] MEDS: BENZTROPINE 0.5 MG TAB PO SCH (21:13)
[2016-09-22] MEDS: SIMVASTATIN 20 MG TAB PO SCH (21:13)
[2016-09-22] MEDS: WARFARIN SOD 1 MG TAB PO SCH (21:13)
[2016-09-22] MEDS: WARFARIN SOD 3 MG TAB PO SCH (21:14)
[2016-09-22 22:00] VITALS: BP 162/68
[2016-09-23] MEDS: PIPERACILLIN/TAZOBACTAM SOD 3.375 GM in D5W MINI-BAG PLUS 50 ML IV SCH ×4 (00:19→18:22)
[2016-09-23 06:00] VITALS: BP 138/63
[2016-09-23 07:17] LABS: INR 2.18
[2016-09-23] MEDS: HALOPERIDOL 5 MG TAB PO SCH (08:50)
[2016-09-23] MEDS: DOCUSATE SODIUM 100 MG CAP PO SCH ×2 (08:50→22:05)
[2016-09-23] MEDS: ATENOLOL 50 MG TAB PO SCH (08:50)
[2016-09-23] MEDS: SENOKOT S TAB PO SCH ×2 (08:50→22:07)
[2016-09-23] MEDS: ZIPRASIDONE 80 MG CAP (GEODON) PO SCH ×2 (08:50→22:05)
[2016-09-23] MEDS: HumaLOG INSULIN (NovoLOG) PER UNIT SC SCH ×4 (08:50→21:00)
[2016-09-23] MEDS: CLOPIDOGREL 75 MG TAB PO SCH (08:50)
[2016-09-23] MEDS: LEVEMIR (INSULIN DETEMIR) 1 UNITS/0.01ML SC SCH ×2 (08:51→22:08)
[2016-09-23] MEDS: SANTYL OINT 30GM TOP SCH ×2 (08:51→22:08)
[2016-09-23] MEDS: MULTIVITAMINS/MINERALS THERAP 1 TAB PO SCH (08:51)
[2016-09-23 14:00] VITALS: BP 160/82
[2016-09-23 22:00] VITALS: BP 161/65
[2016-09-23] MEDS: SIMVASTATIN 20 MG TAB PO SCH (22:06)
[2016-09-23] MEDS: WARFARIN SOD 3 MG TAB PO SCH (22:07)
[2016-09-23] MEDS: WARFARIN SOD 1 MG TAB PO SCH (22:07)
[2016-09-23] MEDS: BENZTROPINE 0.5 MG TAB PO SCH (22:07)
[2016-09-24] MEDS: PIPERACILLIN/TAZOBACTAM SOD 3.375 GM in D5W MINI-BAG PLUS 50 ML IV SCH ×4 (01:25→17:55)
[2016-09-24 06:00] VITALS: BP 147/69
[2016-09-24] MEDS: HumaLOG INSULIN (NovoLOG) PER UNIT SC SCH ×5 (07:30→21:07)
[2016-09-24] MEDS: SANTYL OINT 30GM TOP SCH ×2 (09:00→21:09)
[2016-09-24] MEDS: LEVEMIR (INSULIN DETEMIR) 1 UNITS/0.01ML SC SCH ×2 (09:00→21:07)
[2016-09-24] MEDS: CLOPIDOGREL 75 MG TAB PO SCH (12:10)
[2016-09-24] MEDS: MULTIVITAMINS/MINERALS THERAP 1 TAB PO SCH (12:10)
[2016-09-24] MEDS: SENOKOT S TAB PO SCH ×2 (12:10→20:36)
[2016-09-24] MEDS: DOCUSATE SODIUM 100 MG CAP PO SCH ×2 (12:11→20:36)
[2016-09-24] MEDS: HALOPERIDOL 5 MG TAB PO SCH (12:11)
[2016-09-24] MEDS: ATENOLOL 50 MG TAB PO SCH (12:11)
[2016-09-24] MEDS: ZIPRASIDONE 80 MG CAP (GEODON) PO SCH ×2 (12:11→21:08)
[2016-09-24 14:00] VITALS: BP 149/69
--- NOTE | 2016-09-24 19:30 | IPN ---
DATE: 09/24/2016 SUBJECTIVE: Patient denies any pain. No nausea, vomiting, fevers, or chills. No chest pain and no shortness of breath. OBJECTIVE: Patient is afebrile with a T-Max of 98.1. Vital signs are stable. Patient is saturating well on room air. Intake and output have been stable. HEART: Regular rate and rhythm. LUNGS: Clear to auscultation. ABDOMEN: Soft, nontender, nondistended. Left groin wounds show two open wound which have the vacuum placed. This was changed today and the wounds show good granulation tissue with good signs of healing. The left 5th toe amputation site shows some fibrinous exudate which was debrided sharply today at bedside. There is good granulation tissue which has improved since the initiation of collagen gordon dressing. ASSESSMENT AND PLAN: Patient is a 66-year-old male with breakdown of his left 5th toe amputation site resolving in revascularization of his left lower extremity with a femoral endarterectomy. The femoral incisions have broken down and the patient has been undergoing vac dressings after having debridement of the groin incisions. The wounds are healing well and show good granulation tissue and have contracted in size. The left lower extremity is well perfused and his 5th toe amputation site is showing signs of healing with improved granulation tissue. There was some fibrinous exudate present which was sharply debrided at bedside down to good healthy bleeding tissue. Patient will continue with vac dressing changes and collagen gordon dressing to the left 5th toe amputation site. Plan will be for discharge to nursing facility on either Tuesday or Tuesday of next week. Patients labs have been stable and he is therapeutic on his Coumadin with his most recent INR being 2.18.
[2016-09-24] MEDS: WARFARIN SOD 1 MG TAB PO SCH (21:08)
[2016-09-24] MEDS: SIMVASTATIN 20 MG TAB PO SCH (21:08)
[2016-09-24] MEDS: WARFARIN SOD 3 MG TAB PO SCH (21:09)
[2016-09-24] MEDS: BENZTROPINE 0.5 MG TAB PO SCH (21:09)
[2016-09-24 22:00] VITALS: BP 147/65
[2016-09-25] MEDS: PIPERACILLIN/TAZOBACTAM SOD 3.375 GM in D5W MINI-BAG PLUS 50 ML IV SCH ×4 (01:36→18:00)
[2016-09-25 06:00] VITALS: BP 155/77
[2016-09-25] MEDS: MULTIVITAMINS/MINERALS THERAP 1 TAB PO SCH (08:50)
[2016-09-25] MEDS: ATENOLOL 50 MG TAB PO SCH (08:51)
[2016-09-25] MEDS: SENOKOT S TAB PO SCH ×2 (08:51→21:04)
[2016-09-25] MEDS: DOCUSATE SODIUM 100 MG CAP PO SCH ×2 (08:51→21:06)
[2016-09-25] MEDS: CLOPIDOGREL 75 MG TAB PO SCH (08:51)
[2016-09-25] MEDS: HALOPERIDOL 5 MG TAB PO SCH (08:51)
[2016-09-25] MEDS: ZIPRASIDONE 80 MG CAP (GEODON) PO SCH ×2 (08:51→21:04)
[2016-09-25] MEDS: LEVEMIR (INSULIN DETEMIR) 1 UNITS/0.01ML SC SCH ×2 (08:52→21:07)
[2016-09-25] MEDS: HumaLOG INSULIN (NovoLOG) PER UNIT SC SCH ×4 (08:53→21:00)
[2016-09-25] MEDS: SANTYL OINT 30GM TOP SCH ×2 (08:53→21:08)
[2016-09-25 14:00] VITALS: BP 138/69
[2016-09-25] MEDS: BENZTROPINE 0.5 MG TAB PO SCH (21:04)
[2016-09-25] MEDS: SIMVASTATIN 20 MG TAB PO SCH (21:05)
[2016-09-25] MEDS: WARFARIN SOD 1 MG TAB PO SCH (21:05)
[2016-09-25] MEDS: WARFARIN SOD 3 MG TAB PO SCH (21:06)
[2016-09-25 22:00] VITALS: BP 168/72
--- NOTE | 2016-09-25 22:03 | IPNPDOC ---
Subjective Date Seen The patient was seen on 09/25/16. Subjective Chief Complaint/HPI The patient is a 66-year-old male admitted with a reason for visit of Left Groin Wound. General: Denies: ROS Unobtainable, Chills, Night Sweats, Fatigue, Malaise, Normal Appetite, Other Symptoms Constitutional: Denies: Chills, Fever, Malaise, Night Sweats, Weakness, Fatigue , Weight Loss, Lethargy, Other Eyes: Denies: Pain, Vision change, Conjunctivae inflammation, Eyelid inflammation, Redness, Other ENT: Denies: Head Aches, Ear Pain, Dysphagia, Sinus Congestion, Post Nasal Drip , Sore Throat, Epistaxis, Other Symptoms Skin: Denies: Rash, Lesions, Jaundice, Bruising, Itching, Dry, Breakdown, Nail Changes, Other Pulmonary: Denies: Dyspnea, Cough, Pleuritic Chest Pain, Other Symptoms Cardiovascular: Denies: Chest Pain, Palpitations, Orthopnea, Paroxysmal Noc. Dyspnea, Edema, Lt Headedness, Other Symptoms Gastrointestinal: Denies: Nausea, Vomiting, Abdominal Pain, Diarrhea, Constipation, Melena, Hematochezia, Other Symptoms Genitourinary: Denies: Dysuria, Frequency, Incontinence, Hematuria, Retention, Other Symptoms Hematologic: Denies: Bruising, Bleeding Excessively, Petecchia, Purpura, Enlarged Lymph Nodes, Other Hematologic Endocrine: Denies: Polydipsia, Polyphagia, Polyuria, Heat Intolerance, Cold Intolerance, Other Endocrine Sx Musculoskeletal: Denies: Neck Pain, Back Pain, Shoulder Pain, Arm Pain, Hand Pain, Leg Pain, Foot Pain, Joint Pain, Muscle Pain, Spasms, Other Symptoms Neurological: Denies: Weakness, Numbness, Incoordination, Change in speech, Confusion, Seizures, Other Symptoms Psych: Denies: Mood Normal, Anxiety, Depression, Memory Issues, Thoughts of Self Harm, Anger, Thoughts of Harming Other, Other Psych Objective Physical Examination Neck Exam: Positive: Supple, +2 carotid pulse wo bruit Heart Exam: Positive: Rate Normal, Regular Rhythm Abdomen Exam: Positive: Normal bowel sounds Psych Exam: Positive: Mental status NL Assessment /Plan Plan/VTE VTE Prophylaxis Ordered?: Yes Plan Anticipated Discharge: Prison Wound stable continue VAC dressing and left fifth toe dressing with collagenase. VS, I&O, 24H, Fishbone Vital Signs/I&O Vital Signs Date Time Temp Pulse Resp B/P (MAP) Pulse Ox O2 Delivery O2 Flow Rate FiO2 09/25/16 14:00 97.9 66 18 138/69 (92) 94 Room Air 09/23/16 11:26 94.0 09/22/16 11:30 90 I&O- Last 24 Hours up to 6 AM 09/25/16 05:59 Intake Total 2660 ml Output Total 2280 ml Balance 380 ml Laboratory Data 24H LABS Laboratory Tests 2 09/25/16 06:33: Bedside Glucose (Misc Panel) 330H 09/25/16 11:37: Bedside Glucose (Misc Panel) 269H 09/25/16 16:57: Bedside Glucose (Misc Panel) 218H 09/25/16 21:03: Bedside Glucose (Misc Panel) 240H Microbiology Microbiology 09/15/16 Gram Stain - Final, Complete 09/15/16 Surgical Biopsy Culture - Final, Complete Strep Agalactiae Group B Proteus Mirabilis 09/15/16 Anaerobic Culture - Final, Complete Eugene Jeffers MD Sep 25, 2016 22:03
[2016-09-26] MEDS: PIPERACILLIN/TAZOBACTAM SOD 3.375 GM in D5W MINI-BAG PLUS 50 ML IV SCH ×4 (00:23→18:46)
[2016-09-26 06:00] VITALS: BP 180/72
[2016-09-26 07:10] LABS: INR 2.37
[2016-09-26] MEDS: LEVEMIR (INSULIN DETEMIR) 1 UNITS/0.01ML SC SCH ×2 (08:51→22:15)
[2016-09-26] MEDS: ATENOLOL 50 MG TAB PO SCH (08:52)
[2016-09-26] MEDS: SENOKOT S TAB PO SCH ×2 (08:52→22:12)
[2016-09-26] MEDS: DOCUSATE SODIUM 100 MG CAP PO SCH ×2 (08:52→22:13)
[2016-09-26] MEDS: MULTIVITAMINS/MINERALS THERAP 1 TAB PO SCH (08:52)
[2016-09-26] MEDS: CLOPIDOGREL 75 MG TAB PO SCH (08:52)
[2016-09-26] MEDS: HumaLOG INSULIN (NovoLOG) PER UNIT SC SCH ×4 (08:52→22:14)
[2016-09-26] MEDS: SANTYL OINT 30GM TOP SCH ×2 (08:52→22:15)
[2016-09-26] MEDS: HALOPERIDOL 5 MG TAB PO SCH (08:52)
[2016-09-26] MEDS: ZIPRASIDONE 80 MG CAP (GEODON) PO SCH ×2 (08:52→22:12)
[2016-09-26 14:00] VITALS: BP 152/90
--- NOTE | 2016-09-26 19:25 | IPNPDOC ---
Date Seen The patient was seen on 09/26/16. Progress Note SUBJECTIVE: Patient is a 66-year-old white male with left groin incisions which have dehisced and are undergoing VAC dressing. Patient denies any pain. He states the VAC dressing did have some difficulty functioning but has been reinforced and he is functioning well. OBJECTIVE PHYSICAL EXAMINATION: VITAL SIGNS: Please see below. GENERAL: Awake alert in no apparent distress sitting up at the edge of the bed HEENT: Normal CARDIOVASCULAR: Regular rate and rhythm. RESPIRATORY: Her to auscultation bilaterally. ABDOMINAL: Soft nontender nondistended EXTREMITIES: Right amputation stump well-healed. Left fifth toe amputation site showing good signs of healing with improved granulation tissue. Left groin incisions with VAC dressing in place. NEUROLOGICAL: Awake alert oriented x3 with no focal deficits. PSYCHOLOGICAL: Normal LABORATORY DATA: Please see below. MICROBIOLOGY: Please see below. DVT prophylaxis ordered?: Patient on Coumadin. ASSESSMENT AND PLAN: This is a 66-year-old white male with left inguinal wound dehiscence and infection and left fifth toe MB dictation site infection. PROBLEMS: 1. left inguinal wound dehiscence: The VAC dressing is placed and the wounds are showing good signs of healing. 2. left fifth toe amputation site infection: Patient is currently undergoing collagenase with a dry dressing which is gently debrided the wound the wound underwent sharp debridement on Tuesday and the wound shows good healing with improved granulation tissue.. DISPOSITION: Plan is for transfer to a nursing facility either Tuesday or Tuesday. VS, I&O, 24H, Fishbone Vital Signs/I&O Vital Signs Date Time Temp Pulse Resp B/P (MAP) Pulse Ox O2 Delivery O2 Flow Rate FiO2 09/26/16 14:00 97.3 56 16 152/90 (110) 97 Room Air 09/23/16 11:26 94.0 09/22/16 11:30 90 I&O- Last 24 Hours up to 6 AM 09/26/16 06:00 Intake Total 2590 ml Output Total 1850 ml Balance 740 ml Laboratory Data 24H LABS Laboratory Tests 2 09/25/16 21:03: Bedside Glucose (Misc Panel) 240H 09/26/16 06:18: Prothrombin Time 26.8H, Prothromb Time International Ratio 2.37 09/26/16 07:47: Bedside Glucose (Misc Panel) 245H 09/26/16 12:01: Bedside Glucose (Misc Panel) 205H 09/26/16 16:55: Bedside Glucose (Misc Panel) 240H Eugene Jeffers MD Sep 26, 2016 19:25
[2016-09-26 22:00] VITALS: BP 140/60
[2016-09-26] MEDS: WARFARIN SOD 3 MG TAB PO SCH (22:13)
[2016-09-26] MEDS: WARFARIN SOD 1 MG TAB PO SCH (22:13)
[2016-09-26] MEDS: BENZTROPINE 0.5 MG TAB PO SCH (22:13)
[2016-09-26] MEDS: SIMVASTATIN 20 MG TAB PO SCH (22:13)
[2016-09-27] MEDS: PIPERACILLIN/TAZOBACTAM SOD 3.375 GM in D5W MINI-BAG PLUS 50 ML IV SCH ×4 (00:47→18:49)
[2016-09-27 06:00] VITALS: BP 124/60
[2016-09-27] MEDS: HumaLOG INSULIN (NovoLOG) PER UNIT SC SCH ×4 (08:39→20:16)
[2016-09-27] MEDS: MULTIVITAMINS/MINERALS THERAP 1 TAB PO SCH (08:40)
[2016-09-27] MEDS: DOCUSATE SODIUM 100 MG CAP PO SCH ×2 (08:40→20:15)
[2016-09-27] MEDS: ZIPRASIDONE 80 MG CAP (GEODON) PO SCH ×2 (08:40→20:15)
[2016-09-27] MEDS: HALOPERIDOL 5 MG TAB PO SCH (08:40)
[2016-09-27] MEDS: LEVEMIR (INSULIN DETEMIR) 1 UNITS/0.01ML SC SCH ×2 (08:40→20:16)
[2016-09-27] MEDS: CLOPIDOGREL 75 MG TAB PO SCH (08:40)
[2016-09-27] MEDS: SENOKOT S TAB PO SCH ×2 (08:40→20:15)
[2016-09-27] MEDS: ATENOLOL 50 MG TAB PO SCH (08:40)
[2016-09-27] MEDS: SANTYL OINT 30GM TOP SCH ×2 (08:41→20:17)
--- NOTE | 2016-09-27 12:59 | IPNPDOC ---
Date Seen The patient was seen on 09/27/16. Progress Note SUBJECTIVE: Patient without complaints. OBJECTIVE PHYSICAL EXAMINATION: VITAL SIGNS: Please see below. GENERAL: No apparent distress HEENT: Normal CARDIOVASCULAR: Regular. RESPIRATORY: There to auscultation bilaterally. ABDOMINAL: Nontender nondistended EXTREMITIES: Right lower extremity is well-perfused with no ulcerations. The left inguinal wounds were evaluated today with changing of the VAC dressing. The wounds are eleonora in size and are much more superficial and show good granulation tissue. There is a lot of moisture and material in the inguinal region. The left fifth toe amputation site is showing signs of healing with improved granulation tissue and less fibrinous exudate. NEUROLOGICAL: Awake alert oriented x3 with no focal deficits PSYCHOLOGICAL: Normal LABORATORY DATA: Please see below. MICROBIOLOGY: Please see below. DVT prophylaxis ordered?: Patient is on Coumadin ASSESSMENT AND PLAN: This is a 66-year-old white male with left inguinal wound dehiscence and infection which has been treated with VAC dressing. The patient also has a left fifth toe amputation site wound. PROBLEMS: 1. left inguinal wound dehiscence and infection: Patient has been undergoing VAC therapy. The dressing was changed today and there was a lot of foul smelling odorous moist material in the left inguinal region. The patient will undergo a shower today and then every time prior to changing of the VAC dressing. The wound is showing good signs of healing and we will continue with the VAC dressing. 2. left fifth toe amputation wound: The irritation wound is healing well there is good granulation tissue and the plan will be to continue with collagenase and dry dressing. DISPOSITION: Patient is doing well wounds are healing well and he is stable for discharge to a nursing facility. VS, I&O, 24H, Fishbone Vital Signs/I&O Vital Signs Date Time Temp Pulse Resp B/P (MAP) Pulse Ox O2 Delivery O2 Flow Rate FiO2 09/27/16 08:40 50 124/60 09/27/16 07:20 Room Air 09/27/16 06:00 96.3 18 94 09/23/16 11:26 94.0 09/22/16 11:30 90 I&O- Last 24 Hours up to 6 AM 09/27/16 06:00 Intake Total 1800 ml Output Total 2825 ml Balance -1025 ml Laboratory Data 24H LABS Laboratory Tests 2 09/26/16 16:55: Bedside Glucose (Misc Panel) 240H 7/9/17 21:18: Bedside Glucose (Misc Panel) 268H 09/27/16 05:48: Bedside Glucose (Misc Panel) 142H 09/27/16 11:28: Bedside Glucose (Misc Panel) 292H Eugene Jeffers MD Sep 27, 2016 12:59
[2016-09-27 14:00] VITALS: BP 134/64
[2016-09-27] MEDS: BENZTROPINE 0.5 MG TAB PO SCH (20:15)
[2016-09-27] MEDS: WARFARIN SOD 3 MG TAB PO SCH (20:15)
[2016-09-27] MEDS: WARFARIN SOD 1 MG TAB PO SCH (20:15)
[2016-09-27] MEDS: SIMVASTATIN 20 MG TAB PO SCH (20:20)
[2016-09-27 22:00] VITALS: BP 174/75
[2016-09-28] MEDS: PIPERACILLIN/TAZOBACTAM SOD 3.375 GM in D5W MINI-BAG PLUS 50 ML IV SCH ×3 (00:14→13:44)
[2016-09-28 06:00] VITALS: BP 130/61
--- NOTE | 2016-09-28 08:07 | RO ---
DATE OF PROCEDURE: 09/24/2016 PREPROCEDURE DIAGNOSIS: Nonhealing left 5th toe amputation site with nonviable tissue and slough. POSTPROCEDURE DIAGNOSIS: Nonhealing left 5th toe amputation site with nonviable tissue and slough. PROCEDURE: Excision sharp debridement of the left 5th toe amputation site with excision of skin, subcutaneous tissue and adipose tissue. SURGEON: Dr. Eugene Jeffers. PERCUSSION TUNER: ANESTHESIA: None. ESTIMATED BLOOD LOSS: Minimal. COMPLICATIONS: None. IV FLUID: None. DRAINS: None. SPECIMENS: None. IMPLANTS: None. INDICATION: Patient is a 66-year-old male with left 5th toe amputation that subsequently became infected and underwent revision with resection of the left 5th metatarsal head. The patient has been undergoing wet to dry dressings and has some granulation tissue but there is a significant amount of slough and fibrinous exudate. Patient will undergo sharp debridement. Risks, benefits and alternative treatment options were discussed with the patient. Alternative treatment options included but were not limited to no intervention. Risks included but were not limited to infection, bleeding, possible need for further surgical intervention, renal failure requiring hemodialysis, cerebrovascular accident, myocardial infarction, pulmonary embolus, deep venous thrombosis (DVT), loss of limb, loss of life and poor outcome. Patient understands and accepts these risks and consents to proceed. PROCEDURE: The patient remained in bed and was prepped and draped in a sterile surgical fashion. Scissors and a pickup were used to debride the slough and nonviable skin, subcutaneous tissue and adipose tissue down to healthy bleeding tissue. The size of the wound was approximately 1 cm in length, 0.5 cm in width and 0.5 cm in depth. There was good bleeding healthy tissue at the base of the wound after debridement. Collagenase and a dry dressing was then applied to the wound which was then wrapped with a Kerlix.
[2016-09-28] MEDS: HumaLOG INSULIN (NovoLOG) PER UNIT SC SCH ×4 (08:43→21:00)
[2016-09-28] MEDS: LEVEMIR (INSULIN DETEMIR) 1 UNITS/0.01ML SC SCH ×2 (08:43→22:07)
[2016-09-28] MEDS: DOCUSATE SODIUM 100 MG CAP PO SCH ×2 (08:44→22:09)
[2016-09-28] MEDS: ATENOLOL 50 MG TAB PO SCH (08:44)
[2016-09-28] MEDS: MULTIVITAMINS/MINERALS THERAP 1 TAB PO SCH (08:44)
[2016-09-28] MEDS: CLOPIDOGREL 75 MG TAB PO SCH (08:44)
[2016-09-28] MEDS: ZIPRASIDONE 80 MG CAP (GEODON) PO SCH ×2 (08:44→22:08)
[2016-09-28] MEDS: HALOPERIDOL 5 MG TAB PO SCH (08:44)
[2016-09-28] MEDS: SENOKOT S TAB PO SCH ×2 (08:44→22:09)
[2016-09-28] MEDS: SANTYL OINT 30GM TOP SCH ×2 (08:45→22:12)
[2016-09-28 14:00] VITALS: BP 148/71
--- NOTE | 2016-09-28 15:42 | IPNPDOC ---
Date Seen The patient was seen on 09/28/16. Progress Note SUBJECTIVE: Patient without complaints. States the VAC dressing has been functioning well. OBJECTIVE PHYSICAL EXAMINATION: VITAL SIGNS: Please see below. GENERAL: No apparent distress sitting on the edge of the bed. HEENT: Normal CARDIOVASCULAR: Regular. RESPIRATORY: Clear to auscultation bilaterally. ABDOMINAL: Soft nontender nondistended with no palpable pulsatile masses EXTREMITIES: Left lower extremity is well-perfused the left fifth toe" site is healing well with good granulation tissue the VAC dressing is in place over the left inguinal region NEUROLOGICAL: Wake alert oriented x3 with no focal deficits PSYCHOLOGICAL: Normal LABORATORY DATA: Please see below. MICROBIOLOGY: Please see below. DVT prophylaxis ordered?: Patient on Coumadin ASSESSMENT AND PLAN: This is a 66-year-old white male with left femoral wound infection after undergoing a left femoral endarterectomy as well as a left fifth toe nonhealing wound. The left inguinal wound is healing well with VAC therapy and the left fifth toe amputation site is healing well with collagenase dressing. PROBLEMS: 1. left inguinal wound: Wound is healing well and eleonora in size and depth. Patient required no longer requires IV antibiotics. 2. Left fifth toe indications site is healing well and shows good granulation tissue. DISPOSITION: The patient is still awaiting placement at a nursing facility. Patient is not a candidate to go home with home health care as he has been discharged from the home health care due to his noncompliance. We will continue to look for placement with the VAC dressing. VS, I&O, 24H, Fishbone Vital Signs/I&O Vital Signs Date Time Temp Pulse Resp B/P (MAP) Pulse Ox O2 Delivery O2 Flow Rate FiO2 09/28/16 08:44 58 130/61 09/28/16 07:30 Room Air 09/28/16 06:00 97.2 14 96 09/23/16 11:26 94.0 09/22/16 11:30 90 I&O- Last 24 Hours up to 6 AM 09/28/16 05:59 Intake Total 1890 ml Output Total 2975 ml Balance -1085 ml Laboratory Data 24H LABS Laboratory Tests 2 09/27/16 16:30: Bedside Glucose (Misc Panel) 225H 09/27/16 19:50: Bedside Glucose (Misc Panel) 253H 09/28/16 05:08: Bedside Glucose (Misc Panel) 171H 09/28/16 11:59: Bedside Glucose ([facility] [place] Panel) 171H Eugene Jeffers MD Sep 28, 2016 15:42
[2016-09-28 22:00] VITALS: BP 173/70
[2016-09-28] MEDS: WARFARIN SOD 3 MG TAB PO SCH (22:08)
[2016-09-28] MEDS: WARFARIN SOD 1 MG TAB PO SCH (22:08)
[2016-09-28] MEDS: SIMVASTATIN 20 MG TAB PO SCH (22:09)
[2016-09-28] MEDS: BENZTROPINE 0.5 MG TAB PO SCH (22:12)
[2016-09-29 06:00] VITALS: BP 176/74
[2016-09-29] MEDS: SANTYL OINT 30GM TOP SCH ×2 (08:19→20:13)
[2016-09-29] MEDS: MULTIVITAMINS/MINERALS THERAP 1 TAB PO SCH (08:19)
[2016-09-29] MEDS: ZIPRASIDONE 80 MG CAP (GEODON) PO SCH ×2 (08:19→20:09)
[2016-09-29] MEDS: DOCUSATE SODIUM 100 MG CAP PO SCH ×2 (08:19→20:08)
[2016-09-29] MEDS: SENOKOT S TAB PO SCH ×2 (08:19→20:09)
[2016-09-29] MEDS: HumaLOG INSULIN (NovoLOG) PER UNIT SC SCH ×4 (08:19→21:00)
[2016-09-29] MEDS: LEVEMIR (INSULIN DETEMIR) 1 UNITS/0.01ML SC SCH ×2 (08:19→20:12)
[2016-09-29] MEDS: CLOPIDOGREL 75 MG TAB PO SCH (08:20)
[2016-09-29] MEDS: HALOPERIDOL 5 MG TAB PO SCH (08:20)
[2016-09-29] MEDS: ATENOLOL 50 MG TAB PO SCH (08:20)
--- NOTE | 2016-09-29 09:28 | IPNPDOC ---
Date Seen The patient was seen on 09/29/16. Progress Note SUBJECTIVE: Patient has no complaints. OBJECTIVE PHYSICAL EXAMINATION: VITAL SIGNS: Please see below. GENERAL: Sitting at the side of the bed no apparent distress HEENT: Normal CARDIOVASCULAR: Regular rate and rhythm. RESPIRATORY: Clear to auscultation bilaterally. ABDOMINAL: Soft nontender nondistended EXTREMITIES: Left lower extremity is well-perfused. The left fifth toe amputation site is healing well with good signs of granulation tissue with continued small amounts of fibrinous exudate. The left inguinal wounds are healing well and there is a VAC dressing in place. NEUROLOGICAL: Awake alert oriented x3 with no focal deficits PSYCHOLOGICAL: Normal LABORATORY DATA: Please see below. MICROBIOLOGY: Please see below. DVT prophylaxis ordered?: He is on Coumadin ASSESSMENT AND PLAN: This is a 66-year-old white male with nonhealing left fifth toe" site who underwent a left femoral endarterectomy with breakdown of his left femoral incisions.. PROBLEMS: 1. left fifth toe amputation site: This is showing signs of healing and we will continue with collagenase dressing.. 2. left femoral incision elicits an infection: The patient has been undergoing a VAC therapy after undergoing debridement and the wounds are healing well. The VAC dressing is more stable since the patient has had a shower and the plan will be to continue to have the patient shower after removal of the dressing and then replace the dressing shortly thereafter.. DISPOSITION: Patient is healing well and doing well and we continue to await placement in a nursing facility that well except the VAC dressing. Patient is not a candidate for discharge to home due to his noncompliance and having been discharged from home health care. VS, I&O, 24H, Fishbone Vital Signs/I&O Vital Signs Date Time Temp Pulse Resp B/P (MAP) Pulse Ox O2 Delivery O2 Flow Rate FiO2 09/29/16 08:20 53 176/74 09/29/16 06:00 97.2 14 96 Room Air 09/23/16 11:26 94.0 I&O- Last 24 Hours up to 6 AM 09/29/16 06:00 Intake Total 3390 ml Output Total 4775 ml Balance -1385 ml Laboratory Data 24H LABS Laboratory Tests 2 09/28/16 11:59: Bedside Glucose (Misc Panel) 171H 09/28/16 17:03: Bedside Glucose (Misc Panel) 186H 09/28/16 19:45: Bedside Glucose (Misc Panel) 213H 09/29/16 05:00: Bedside Glucose (Misc Panel) 142H Eugene Jeffers MD Sep 29, 2016 09:28
[2016-09-29 14:00] VITALS: BP 165/70
[2016-09-29] MEDS: BENZTROPINE 0.5 MG TAB PO SCH (20:08)
[2016-09-29] MEDS: WARFARIN SOD 3 MG TAB PO SCH (20:09)
[2016-09-29] MEDS: SIMVASTATIN 20 MG TAB PO SCH (20:09)
[2016-09-29] MEDS: WARFARIN SOD 1 MG TAB PO SCH (20:09)
[2016-09-29] MEDS: ACETAMINOPHEN TAB 650MG DOSE (2X325MG) PO PRN (20:12)
[2016-09-29 22:00] VITALS: BP 165/79
[2016-09-30] MEDS: ACETAMINOPHEN TAB 650MG DOSE (2X325MG) PO PRN (02:20)
[2016-09-30 06:00] VITALS: BP 109/55
[2016-09-30] MEDS: HumaLOG INSULIN (NovoLOG) PER UNIT SC SCH ×4 (08:21→21:00)
[2016-09-30] MEDS: LEVEMIR (INSULIN DETEMIR) 1 UNITS/0.01ML SC SCH ×2 (08:22→21:55)
[2016-09-30] MEDS: SENOKOT S TAB PO SCH ×2 (08:23→21:54)
[2016-09-30] MEDS: DOCUSATE SODIUM 100 MG CAP PO SCH ×2 (08:23→21:54)
[2016-09-30] MEDS: CLOPIDOGREL 75 MG TAB PO SCH (08:23)
[2016-09-30] MEDS: ZIPRASIDONE 80 MG CAP (GEODON) PO SCH ×2 (08:23→21:53)
[2016-09-30] MEDS: SANTYL OINT 30GM TOP SCH ×2 (08:24→21:55)
[2016-09-30] MEDS: HALOPERIDOL 5 MG TAB PO SCH (08:24)
[2016-09-30] MEDS: MULTIVITAMINS/MINERALS THERAP 1 TAB PO SCH (08:24)
[2016-09-30] MEDS: ATENOLOL 50 MG TAB PO SCH (08:24)
[2016-09-30 14:00] VITALS: BP 155/72
[2016-09-30] MEDS: WARFARIN SOD 3 MG TAB PO SCH (21:53)
[2016-09-30] MEDS: WARFARIN SOD 1 MG TAB PO SCH (21:53)
[2016-09-30] MEDS: SIMVASTATIN 20 MG TAB PO SCH (21:53)
[2016-09-30] MEDS: BENZTROPINE 0.5 MG TAB PO SCH (21:54)
[2016-09-30 22:00] VITALS: BP 162/68
--- NOTE | 2016-09-30 22:24 | IPNPDOC ---
Date Seen The patient was seen on 09/30/16. Progress Note SUBJECTIVE: Patient without complaints OBJECTIVE PHYSICAL EXAMINATION: VITAL SIGNS: Please see below. GENERAL: Sitting in bed no apparent distress HEENT: Normal CARDIOVASCULAR: Regular rate and rhythm. RESPIRATORY: Clear to auscultation bilaterally. ABDOMINAL: Soft nontender nondistended with no palpable pulsatile masses EXTREMITIES: Left lower extremity is well-perfused, ulcerations on the toes are healing well, left fifth toe amputation site shows good granulation tissue with minimal fibrinous exudate and left inguinal VAC is in place with good suction. NEUROLOGICAL: Awake alert oriented x3 with no focal deficits PSYCHOLOGICAL: Normal LABORATORY DATA: Please see below. MICROBIOLOGY: Please see below. DVT prophylaxis ordered?: Patient is on Coumadin ASSESSMENT AND PLAN: This is a 66-year-old white male with breakdown of his left femoral endarterectomy incisions and has been undergoing VAC therapy. The patient also has a left fifth toe amputation site that is open and has been undergoing therapy with collagenase. PROBLEMS: 1. left lower extremity ischemia and a half hertz chronic arterial occlusive disease: Patient has an incision in the groin that has had dehiscence and infection and is undergoing VAC therapy after undergoing debridement. The wounds are healing well. The left fifth toe" site has been undergoing collagenase dressings and is healing well. DISPOSITION: Awaiting placement patient is stable for discharge but unable to find placement with the VAC dressing. Patient requires the back for healing of his left inguinal wound. VS, I&O, 24H, Fishbone Vital Signs/I&O Vital Signs Date Time Temp Pulse Resp B/P (MAP) Pulse Ox O2 Delivery O2 Flow Rate FiO2 09/30/16 14:00 98.1 62 18 155/72 (99) 96 Room Air I&O- Last 24 Hours up to 6 AM 09/30/16 06:00 Intake Total 1440 ml Output Total 2000 ml Balance -560 ml Laboratory Data 24H LABS Laboratory Tests 2 09/30/16 06:30: Bedside Glucose (Misc Panel) 137H 09/30/16 11:53: Bedside Glucose (Misc Panel) 204H 09/30/16 16:57: Bedside Glucose (Misc Panel) 142H 09/30/16 21:38: Bedside Glucose (Misc Panel) 185H Eugene Jeffers MD Sep 30, 2016 22:24
[2016-10-01 06:00] VITALS: BP 153/88
[2016-10-01] MEDS: HumaLOG INSULIN (NovoLOG) PER UNIT SC SCH ×4 (08:12→22:47)
[2016-10-01] MEDS: LEVEMIR (INSULIN DETEMIR) 1 UNITS/0.01ML SC SCH ×2 (08:12→22:48)
[2016-10-01] MEDS: SENOKOT S TAB PO SCH ×2 (08:13→22:46)
[2016-10-01] MEDS: CLOPIDOGREL 75 MG TAB PO SCH (08:13)
[2016-10-01] MEDS: ZIPRASIDONE 80 MG CAP (GEODON) PO SCH ×2 (08:13→22:46)
[2016-10-01] MEDS: ATENOLOL 50 MG TAB PO SCH (08:13)
[2016-10-01] MEDS: DOCUSATE SODIUM 100 MG CAP PO SCH ×2 (08:13→22:46)
[2016-10-01] MEDS: HALOPERIDOL 5 MG TAB PO SCH (08:13)
[2016-10-01] MEDS: MULTIVITAMINS/MINERALS THERAP 1 TAB PO SCH (08:13)
[2016-10-01] MEDS: SANTYL OINT 30GM TOP SCH ×2 (12:00→22:45)
[2016-10-01 14:00] VITALS: BP 151/70
[2016-10-01 21:46] VITALS: BP 146/72
[2016-10-01 22:00] VITALS: BP 146/72
[2016-10-01] MEDS: SIMVASTATIN 20 MG TAB PO SCH (22:46)
[2016-10-01] MEDS: WARFARIN SOD 1 MG TAB PO SCH (22:46)
[2016-10-01] MEDS: WARFARIN SOD 3 MG TAB PO SCH (22:46)
[2016-10-01] MEDS: BENZTROPINE 0.5 MG TAB PO SCH (22:46)
--- NOTE | 2016-10-01 23:09 | IPNPDOC ---
Date Seen The patient was seen on 10/01/16. Progress Note SUBJECTIVE: Patient is without complaints. OBJECTIVE PHYSICAL EXAMINATION: VITAL SIGNS: Please see below. GENERAL: Awake alert in no apparent distress HEENT: Normal CARDIOVASCULAR: Regular rate and rhythm. RESPIRATORY: Clear to auscultation bilaterally. ABDOMINAL: Soft nontender nondistended EXTREMITIES: Left lower extremity is well-perfused the left fifth toe amputation site is healing well the left inguinal wounds are healing well with the VAC dressing in place NEUROLOGICAL: Awake alert oriented x3 with no focal deficits PSYCHOLOGICAL: R Yulia LABORATORY DATA: Please see below. MICROBIOLOGY: Please see below. IMAGING: None Echocardiogram: None. 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 The patient has undergone debridement of the wounds and has been undergoing VAC dressing therapy with good result. The left fifth toe amputation site has been undergoing collagenase dressing and is showing good signs of healing with good granulation tissue and minimal fibrinous exudate. PROBLEMS: 1. left lower extremity ischemia: Left lower extremity is well-perfused after undergoing a left femoral endarterectomy the wounds in the left fifth toe amputation site and femoral endarterectomy site are healing well. DISPOSITION: Awaiting placement in a nursing facility that accepts the VAC dressings. VS, I&O, 24H, Fishbone Vital Signs/I&O Vital Signs Date Time Temp Pulse Resp B/P (MAP) Pulse Ox O2 Delivery O2 Flow Rate FiO2 10/01/16 21:46 146/72 (96) 10/01/16 14:00 98.2 60 16 94 10/01/16 08:00 Room Air I&O- Last 24 Hours up to 6 AM 10/01/16 06:00 Intake Total 1680 ml Output Total 2920 ml Balance -1240 ml Laboratory Data 24H LABS Laboratory Tests 2 10/01/16 05:53: Bedside Glucose (Misc Panel) 135H 10/01/16 12:20: Bedside Glucose (Misc Panel) 184H 10/01/16 16:54: Bedside Glucose (Misc Panel) 157H 10/01/16 20:22: Bedside Glucose (Misc Panel) 282H Eugene Jeffers MD Oct 01, 2016 23:09
[2016-10-02 06:00] VITALS: BP 160/88
[2016-10-02] MEDS: HumaLOG INSULIN (NovoLOG) PER UNIT SC SCH ×4 (08:13→21:00)
[2016-10-02 09:00] VITALS: BP 140/64
[2016-10-02] MEDS: ZIPRASIDONE 80 MG CAP (GEODON) PO SCH ×2 (09:24→22:02)
[2016-10-02] MEDS: CLOPIDOGREL 75 MG TAB PO SCH (09:25)
[2016-10-02] MEDS: DOCUSATE SODIUM 100 MG CAP PO SCH ×2 (09:25→22:03)
[2016-10-02] MEDS: MULTIVITAMINS/MINERALS THERAP 1 TAB PO SCH (09:25)
[2016-10-02] MEDS: HALOPERIDOL 5 MG TAB PO SCH ×2 (09:25→22:01)
[2016-10-02] MEDS: ATENOLOL 50 MG TAB PO SCH (09:26)
[2016-10-02] MEDS: SENOKOT S TAB PO SCH ×2 (09:26→22:02)
[2016-10-02] MEDS: LEVEMIR (INSULIN DETEMIR) 1 UNITS/0.01ML SC SCH ×2 (09:27→22:01)
[2016-10-02] MEDS: SANTYL OINT 30GM TOP SCH ×2 (09:27→22:04)
[2016-10-02 14:00] VITALS: BP 142/66
--- NOTE | 2016-10-02 20:32 | IPNPDOC ---
Date Seen The patient was seen on 10/02/16. Progress Note SUBJECTIVE: Patient is without complaints OBJECTIVE PHYSICAL EXAMINATION: VITAL SIGNS: Please see below. GENERAL: Sitting on the bed in no apparent distress HEENT: Normal CARDIOVASCULAR: Regular rate and rhythm. RESPIRATORY: Clear to auscultation bilaterally. ABDOMINAL: Soft nontender nondistended with no palpable pulsatile mass EXTREMITIES: Left lower extremity well-perfused. Left groin VAC in place. Left fifth toe amputation site showing good sides and healing. NEUROLOGICAL: Awake alert oriented x3 with no focal deficits PSYCHOLOGICAL: Normal LABORATORY DATA: Please see below. MICROBIOLOGY: Please see below. DVT prophylaxis ordered?: Patient therapeutic on Coumadin ASSESSMENT AND PLAN: This is a 66-year-old white male with left lower extremity ischemia we'll underwent left femoral endarterectomy and subsequently had breakdown of his incisions in his left groin. Patient underwent debridement and back placement and now has good feeling wounds in the left inguinal region. Patient also has a left fifth toe amputation site broke down and is now healing well after revascularization. PROBLEMS: 1. left lower extremity ischemia and ulceration: Patient is healing well and continues with back dressing on his left groin wounds. Left fifth toe amputation site is healing well with collagenase therapy. DISPOSITION: Awaiting placement for short-term rehabilitation and nursing care. Difficult finding placement for the patient with the VAC dressing but the patient requires the dressing 4 he will have nonhealing wounds in his left groin. VS, I&O, 24H, Fishbone Vital Signs/I&O Vital Signs Date Time Temp Pulse Resp B/P (MAP) Pulse Ox O2 Delivery O2 Flow Rate FiO2 10/02/16 20:19 Room Air 10/02/16 14:00 98.9 68 16 142/66 (91) 94 I&O- Last 24 Hours up to 6 AM 10/02/16 06:00 Intake Total 1440 ml Output Total 3400 ml Balance -1960 ml Laboratory Data 24H LABS Laboratory Tests 2 10/02/16 06:45: Bedside Glucose (Misc Panel) 156H 10/02/16 11:56: Bedside Glucose (Misc Panel) 205H 10/02/16 16:50: Bedside Glucose (Misc Panel) 205H Eugene Jeffers MD Oct 02, 2016 20:32
[2016-10-02 22:00] VITALS: BP 148/68
[2016-10-02] MEDS: SIMVASTATIN 20 MG TAB PO SCH (22:01)
[2016-10-02] MEDS: WARFARIN SOD 1 MG TAB PO SCH (22:03)
[2016-10-02] MEDS: WARFARIN SOD 3 MG TAB PO SCH (22:03)
[2016-10-02] MEDS: BENZTROPINE 0.5 MG TAB PO SCH (22:11)
[2016-10-03 06:00] VITALS: BP 160/72
[2016-10-03] MEDS: LEVEMIR (INSULIN DETEMIR) 1 UNITS/0.01ML SC SCH ×2 (07:59→21:00)
[2016-10-03] MEDS: SENOKOT S TAB PO SCH ×2 (08:00→21:33)
[2016-10-03] MEDS: ZIPRASIDONE 80 MG CAP (GEODON) PO SCH ×2 (08:00→21:33)
[2016-10-03] MEDS: HumaLOG INSULIN (NovoLOG) PER UNIT SC SCH ×4 (08:00→21:34)
[2016-10-03] MEDS: CLOPIDOGREL 75 MG TAB PO SCH (08:00)
[2016-10-03] MEDS: MULTIVITAMINS/MINERALS THERAP 1 TAB PO SCH (08:01)
[2016-10-03] MEDS: ATENOLOL 50 MG TAB PO SCH (08:01)
[2016-10-03] MEDS: HALOPERIDOL 5 MG TAB PO SCH (08:01)
[2016-10-03] MEDS: DOCUSATE SODIUM 100 MG CAP PO SCH ×2 (08:01→21:33)
[2016-10-03] MEDS: SANTYL OINT 30GM TOP SCH ×2 (08:02→21:35)
[2016-10-03 14:00] VITALS: BP 150/66
[2016-10-03] MEDS: WARFARIN SOD 1 MG TAB PO SCH (21:33)
[2016-10-03] MEDS: WARFARIN SOD 3 MG TAB PO SCH (21:33)
[2016-10-03] MEDS: BENZTROPINE 0.5 MG TAB PO SCH (21:33)
[2016-10-03] MEDS: SIMVASTATIN 20 MG TAB PO SCH (21:33)
[2016-10-03 22:00] VITALS: BP 136/54
--- NOTE | 2016-10-04 00:16 | IPNPDOC ---
Date Seen The patient was seen on 10/03/16. Progress Note SUBJECTIVE: Patient without complaints OBJECTIVE PHYSICAL EXAMINATION: VITAL SIGNS: Please see below. GENERAL: Sitting on the edge of the bed in no apparent distress HEENT: Normal CARDIOVASCULAR: Regular. RESPIRATORY: Clear to auscultation bilaterally. ABDOMINAL: Soft nontender nondistended EXTREMITIES: Left lower extremity is well-perfused. Left femoral incisions have VAC dressing in place. NEUROLOGICAL: Awake alert oriented x3 with no focal deficits PSYCHOLOGICAL: Normal LABORATORY DATA: Please see below. MICROBIOLOGY: Please see below. DVT prophylaxis ordered?: Patient on Coumadin. ASSESSMENT AND PLAN: This is a 66-year-old white male with left wound breakdown and infection after undergoing a left femoral endarterectomy. The left fifth toe amputation site is showing good signs of healing. The left femoral wounds are so showing good signs of healing. PROBLEMS: 1. atherosclerotic arterial occlusive disease with ulceration of the left lower extremity: Wounds are healing well. DISPOSITION: Awaiting placement in a nursing facility that accepts VAC dressings. VS, I&O, 24H, Fishbone Vital Signs/I&O Vital Signs Date Time Temp Pulse Resp B/P (MAP) Pulse Ox O2 Delivery O2 Flow Rate FiO2 10/03/16 22:00 97.8 60 18 136/54 (81) 97 Room Air I&O- Last 24 Hours up to 6 AM 10/04/16 05:59 Intake Total 2760 ml Output Total 3300 ml Balance -540 ml Laboratory Data 24H LABS Laboratory Tests 2 10/03/16 06:13: Bedside Glucose (Misc Panel) 164H 10/03/16 11:44: Bedside Glucose (Misc Panel) 179H 10/03/16 17:28: Bedside Glucose (Misc Panel) 265H Eugene Jeffers MD Oct 04, 2016 00:16
[2016-10-04 06:00] VITALS: BP 130/54
[2016-10-04] MEDS: DOCUSATE SODIUM 100 MG CAP PO SCH ×2 (07:44→21:10)
[2016-10-04] MEDS: MULTIVITAMINS/MINERALS THERAP 1 TAB PO SCH (07:44)
[2016-10-04] MEDS: CLOPIDOGREL 75 MG TAB PO SCH (07:44)
[2016-10-04] MEDS: ATENOLOL 50 MG TAB PO SCH (07:45)
[2016-10-04] MEDS: SENOKOT S TAB PO SCH ×2 (07:45→21:10)
[2016-10-04] MEDS: ZIPRASIDONE 80 MG CAP (GEODON) PO SCH ×2 (07:45→21:11)
[2016-10-04] MEDS: HALOPERIDOL 5 MG TAB PO SCH (07:45)
[2016-10-04] MEDS: HumaLOG INSULIN (NovoLOG) PER UNIT SC SCH ×4 (07:46→21:00)
[2016-10-04] MEDS: LEVEMIR (INSULIN DETEMIR) 1 UNITS/0.01ML SC SCH ×2 (07:47→21:00)
[2016-10-04] MEDS: SANTYL OINT 30GM TOP SCH ×2 (07:47→21:12)
[2016-10-04 14:00] VITALS: BP 167/74
[2016-10-04] MEDS: FLUCONAZOLE 100 MG TAB PO SCH (17:32)
[2016-10-04] MEDS: SIMVASTATIN 20 MG TAB PO SCH (21:10)
[2016-10-04] MEDS: WARFARIN SOD 3 MG TAB PO SCH (21:10)
[2016-10-04] MEDS: BENZTROPINE 0.5 MG TAB PO SCH (21:11)
[2016-10-04] MEDS: WARFARIN SOD 1 MG TAB PO SCH (21:11)
[2016-10-04 22:00] VITALS: BP 171/66
--- NOTE | 2016-10-04 23:04 | IPNPDOC ---
Date Seen The patient was seen on 10/04/16. Progress Note SUBJECTIVE: Patient without complaints OBJECTIVE PHYSICAL EXAMINATION: VITAL SIGNS: Please see below. GENERAL: Lying in bed in no apparent distress HEENT: Normal CARDIOVASCULAR: No murmurs rubs or gallops. RESPIRATORY: Clear to auscultation bilaterally. ABDOMINAL: Soft nontender nondistended with no palpable pulsatile masses EXTREMITIES: Left lower extremity is well-perfused left fifth toe amputation site shows some slough with some granulation tissue. The left femoral wounds were evaluated after the VAC was removed and the show good granulation tissue and contraction in size and depth with good healing. NEUROLOGICAL: Awake alert oriented x3 with no focal deficit PSYCHOLOGICAL: Normal LABORATORY DATA: Please see below. MICROBIOLOGY: Please see below. IMAGING: None Echocardiogram: None. DVT prophylaxis ordered?: Patient is therapeutic on Coumadin ASSESSMENT AND PLAN: This is a 66-year-old white male with left groin wound infection and slow healing left fifth toe amputation site. PROBLEMS: 1. left lower extremity arterial prescribed disease: The left femoral wounds are healing well with the VAC dressing. The left fifth toe amputation site shows improvement but continued slough and fibrinous exudate within the wound. Patient will continue with Santyl dressing to the left fifth toe amputation site. DISPOSITION: Awaiting placement in a nursing facility that accepts VAC dressing. [facility] Vital Signs Date Time Temp Pulse Resp B/P (MAP) Pulse Ox O2 Delivery O2 Flow Rate FiO2 10/04/16 21:00 Room Air 10/04/16 14:00 98.9 60 18 167/74 (105) 94 I&O- Last 24 Hours up to 6 AM 10/04/16 05:59 Intake Total 2880 ml Output Total 3750 ml Balance -870 ml Laboratory Data 24H LABS Laboratory Tests 2 10/04/16 05:22: Bedside Glucose (Misc Panel) 184H 10/04/16 11:10: Bedside Glucose (Misc Panel) 246H 10/04/16 16:31: Bedside Glucose (Misc Panel) 174H 10/04/16 20:19: Bedside Glucose (Misc Panel) 215H Eugene Jeffers MD Oct 04, 2016 23:04
[2016-10-05] MEDS: ACETAMINOPHEN TAB 650MG DOSE (2X325MG) PO PRN (01:36)
[2016-10-05 06:00] VITALS: BP 189/64
[2016-10-05] MEDS: HumaLOG INSULIN (NovoLOG) PER UNIT SC SCH ×2 (07:49→12:17)
[2016-10-05] MEDS: LEVEMIR (INSULIN DETEMIR) 1 UNITS/0.01ML SC SCH (07:49)
[2016-10-05] MEDS: FLUCONAZOLE 100 MG TAB PO SCH (07:50)
[2016-10-05] MEDS: HALOPERIDOL 5 MG TAB PO SCH (07:50)
[2016-10-05] MEDS: ZIPRASIDONE 80 MG CAP (GEODON) PO SCH (07:50)
[2016-10-05] MEDS: CLOPIDOGREL 75 MG TAB PO SCH (07:50)
[2016-10-05] MEDS: MULTIVITAMINS/MINERALS THERAP 1 TAB PO SCH (07:50)
[2016-10-05] MEDS: SENOKOT S TAB PO SCH (07:50)
[2016-10-05] MEDS: DOCUSATE SODIUM 100 MG CAP PO SCH (07:50)
[2016-10-05 07:51] VITALS: BP 189/64
[2016-10-05] MEDS: SANTYL OINT 30GM TOP SCH (07:51)
[2016-10-05] MEDS: ATENOLOL 50 MG TAB PO SCH (07:51)
--- NOTE | 2016-10-05 12:18 | DS.PDOC ---
Discharge Summary General Date of Admission Sep 14, 2016 at 16:04 Date of Discharge 10/05/2016 Attending Physician: Eugene Jeffers MD Specialist/Consultants Involve: Eugene Marcus MD Discharge Summary PROCEDURES PERFORMED DURING STAY: Left femoral wound debridement and VAC dressing placement. Left fifth toe amputation site wound debridement ADMITTING DIAGNOSES: 1. Atrial fibrillation, chronic. 2. Nonhealing left fifth toe amputation site and left femoral incisions. 3. Left lower extremity arterial insufficiency with femoral-popliteal arterial atherosclerotic occlusive disease. DISCHARGE DIAGNOSES: 1. Atrial fibrillation, chronic. 2. Nonhealing left fifth toe amputation site and left femoral incisions. 3. Left lower extremity arterial insufficiency with femoral-popliteal arterial atherosclerotic occlusive disease. COMPLICATIONS/CHIEF COMPLAINT: Left Groin Wound. HISTORY OF PRESENT ILLNESS: Patient is a 66-year-old male who initially presented with gangrene and nonhealing left fifth toe amputation site. Patient was evaluated with angiography and subsequently underwent a left femoral endarterectomy with a revascularization into the left lower extremity. The patient had breakdown of his left femoral wounds and required readmission to the hospital for debridement of the wounds and placement of a VAC dressing. The patient also has slow healing of the left fifth toe imitation site and underwent debridement. Patient has been undergoing collagenase treatment of the left fifth toe amputation site and VAC dressing therapy for the left femoral incisions. HOSPITAL COURSE: Patient was admitted underwent debridement of his left femoral endarterectomy wounds and left fifth toe amputation site. Patient has been undergoing VAC therapy for the left femoral wounds and collagenase therapy for the left fifth toe amputation site. Patient is now stable for transfer to a nursing facility for continued wound care. DISCHARGE MEDICATIONS: Please see below. ALLERGIES: Please see below. PHYSICAL EXAMINATION ON DISCHARGE: VITAL SIGNS: Please see below. GENERAL: Lying in bed in no apparent distress HEENT: Normal NECK: Supple with no carotid bruits CARDIOVASCULAR EXAMINATION: Irregular rate and rhythm RESPIRATORY EXAMINATION: Clear to auscultation bilaterally ABDOMINAL EXAMINATION: Soft nontender nondistended with no palpable pulsatile masses EXTREMITIES: The left lower extremity is well perfused there are ulcerations on the tips of the toes which are dry and healing slowly. The left fifth toe amputation site is showing signs of healing with some fibrinous exudate and slough in the wound but there is also signs of granulation tissue which has improved since beginning collagenase dressings. The femoral wounds are clean with good granulation tissue and have significantly decreased in's size as well as depth, the VAC dressing is in place and functioning well. SKIN: Normal NEUROLOGICAL EXAMINATION: Awake alert oriented 3 with no focal deficits PSYCHIATRIC EXAMINATION: Normal LABORATORY DATA: Please see below. IMAGING: None PROGNOSIS: Good ACTIVITY: As tolerated. DIET: Low-fat low-cholesterol diet. DISCHARGE PLAN: Patient is being discharged to a nursing facility where he will undergo continued VAC therapy for his left femoral incisions. The VAC will be changed Wednesdays and Fridays and the patient is to shower prior to the VAC dressing being replaced. Patient should shower after the VAC is removed and then the new VAC replaced after showering. The left fifth toe amputation wound will undergo collagenase dressing every day. DISCHARGE INSTRUCTIONS: 1. Patient is to follow-up with myself in 1 week. 2. Dressing changes as described in the discharge plan. 3. Follow-up with Dr. Marcus as an outpatient. ITEMS TO FOLLOWUP ON ON OUTPATIENT: 1. Wounds. 2. Wound care. 3. Atrial fibrillation. DISCHARGE CONDITION: Stable. TIME SPENT ON DISCHARGE: Greater than 45 minutes. Vital Signs/I&Os Vital Signs Date Time Temp Pulse Resp B/P (MAP) Pulse Ox O2 Delivery O2 Flow Rate FiO2 10/05/16 09:26 Room Air 10/05/16 07:51 56 189/64 10/05/16 06:00 98.2 16 97 I&O- Last 24 Hours up to 6 AM 10/05/16 06:00 Intake Total 2400 ml Output Total 2950 ml Balance -550 ml Laboratory Data Labs 24H Laboratory Tests 2 10/04/16 16:31: Bedside Glucose (Misc Panel) 174H 10/04/16 20:19: Bedside Glucose (Misc Panel) 215H 10/05/16 07:39: Bedside Glucose (Misc Panel) 268H FSBS Laboratory Tests Test 10/04/16 16:31 10/04/16 20:19 10/05/16 07:39 Range/Units Bedside Glucose (Misc Panel) 174 215 268 80-115 MG/DL Discharge Medications Scheduled Acarbose (Acarbose) 100 Mg Tab, 100 MG PO BID, (Reported) Atenolol (Atenolol) 50 Mg Tab, 50 MG PO DAILY, (Reported) Benztropine Mesylate (Benztropine Mesylate) 0.5 Mg Tab, 0.5 MG PO QHS, (Reported ) Clopidogrel Bisulfate (Plavix) 75 Mg Tab, 75 MG PO DAILY, (Reported) Docusate Sodium (Colace) 100 Mg Cap, 100 MG PO BID, (Reported) Fluticasone/Vilanterol (Breo Ellipta 100-25 Mcg/INH) 1 Inh Inh, 1 PUFF INH DAILY , (Reported) Haloperidol (Haloperidol) 5 Mg Tab, 5 MG PO DAILY, (Reported) Insulin Glargine (Lantus) 1 Units/0.01 Ml Susp, 35 UNITS SC QAM, (Reported) Insulin Glargine (Lantus) 1 Units/0.01 Ml Susp, 30 UNITS SC QHS, (Reported) Multivitamins *[facility] STOCKED* (Thera M Plus *[facility] STOCKED*) 1 Tab Tab, 1 TAB PO DAILY, (Reported) Simvastatin (Simvastatin) 10 Mg Tab, 20 MG PO QHS, (Reported) Warfarin Sod (Coumadin) 6 Mg Tab, 6 MG PO QPM, (Reported) 6.5MG TOTAL DOSE Warfarin Sod (Coumadin) 0.5 Mg Halftab, 0.5 MG PO QPM, (Reported) 6.5MG TOTAL DOSE Ziprasidone Hydrochloride (Ziprasidone HCl) 80 Mg Cap, 80 MG PO BID, (Reported) Scheduled PRN Acetaminophen (Acetaminophen) 325 Mg Tab, 650 MG PO Q4H PRN for PAIN, (Reported) Bisacodyl (Dulcolax) 10 Mg Sup, 10 MG MA DAILY PRN for CONSTIPATION, (Reported) Milk Of Magnesia (Milk of Magnesia) 1,200 Mg/15 Ml Jamilah, 30 ML PO DAILY PRN for CONSTIPATION, (Reported) Nitroglycerin (Nitrostat) 0.4 Mg Subl, 0.4 MG SL PRN PRN for CHEST PAIN, ( Reported) Sodium Phosphate/Biphosphate (Enema 7-19 gm/118Ml) 1 Carolin Carolin, 1 CAROLIN MA DAILY PRN for CONSTIPATION, (Reported) Allergies Coded Allergies: Bupivacaine (Verified Adverse Reaction, Severe, 06/26/12) INDUCES BRUGADA SYNDROME Eugene Jeffers MD Oct 05, 2016 12:18
== END 2016-10-05 13:35 | DRG 857 ==
LOC: M MSPAV 16:04 → M MS5PR 21:46
PROVIDERS: ADMIT Surgery Vascular Surgery; ATTEND Surgery Vascular Surgery
PROC: 0KBR0ZZ Excision of Left Upper Leg Muscle, Open Approach (ICD-10-PCS; principal; 2016-09-15 12:30)
PROC: 0KBR0ZZ Excision of Left Upper Leg Muscle, Open Approach (ICD-10-PCS; 2016-09-24)
DX: T81.4XXA Infection following a procedure, initial encounter (principal); T81.31XA Disruption of external operation (surgical) wound, not elsewhere classified, initial encounter; T87.44 Infection of amputation stump, left lower extremity; I48.91 Unspecified atrial fibrillation; Z79.899 Other long term (current) drug therapy; Z79.4 Long term (current) use of insulin; K59.00 Constipation, unspecified; Z88.8 Allergy status to other drugs, medicaments and biological substances; I10 Essential (primary) hypertension; J44.9 Chronic obstructive pulmonary disease, unspecified; Z91.19 Patient's noncompliance with other medical treatment and regimen; I25.2 Old myocardial infarction; Z86.718 Personal history of other venous thrombosis and embolism; I25.10 Atherosclerotic heart disease of native coronary artery without angina pectoris; F25.9 Schizoaffective disorder, unspecified; I70.25 Atherosclerosis of native arteries of other extremities with ulceration; Z87.891 Personal history of nicotine dependence; E11.9 Type 2 diabetes mellitus without complications

== ENCOUNTER 2016-10-18 09:57 | Inpatient (IN) | payer MEDICARE, MEDICAID ==
[2016-10-18] VITALS (14 sets, daily range): BP systolic 141–166; BP diastolic 80–88; O2SAT 93–97
[~2016-10-18] VITALS: Ht 171.4 cm; Wt 101.5 kg
[~2016-10-18 09:57] MED LIST changes: +ACET1TAB17 PO; +COUM6TAB PO; +DULC10SU2 PR; +ENEMENE16 PR; +MILKSUS PO; +SIMV10TA2 PO; +VITMTA PO; +WARF05TA PO; +WARF4TAB52 PO
[2016-10-18 11:03] LABS: BASO % 0.6 % (0.0-1.0); EOS # 0.3 K/mm3 (0.0-0.50); EOS % 3.3 % (0.0-3.0); LARGE UNSTAINED CELL # 0.2 K/mm3 (0.0-0.4); LARGE UNSTAINED CELL % 2.1 % (0.0-4.0); LYMPH # 1.3 K/mm3 (1.5-4.5); LYMPH % 11.4 % (24.0-44.0); MEAN CORPUSCULAR HEMOGLOBIN 30.8 pg (27.0-33.0); MEAN CORPUSCULAR HGB CONC 33.6 g/dl (32.0-36.5); MEAN CORPUSCULAR VOLUME 91.9 fl (80.0-96.0); MONO # 0.6 K/mm3 (0.0-0.8); NEUTROPHILS # 7.1 K/mm3 (1.8-7.7); NEUTROPHILS % 76.6 % (36.0-66.0); PLATELET COUNT, AUTOMATED 238 k/mm3 (150-450); RED CELL DISTRIBUTION WIDTH 15.6 % (11.5-14.5); WHITE BLOOD COUNT 9.3 K/mm3 (4.0-10.0)
[2016-10-18 11:07] LABS: INR 1.85
[2016-10-18 11:40] LABS: ALBUMIN 2.4 GM/DL (3.2-5.2); ALBUMIN/GLOBULIN RATIO 0.62 (1.00-1.93); BILIRUBIN,TOTAL 0.2 MG/DL (0.2-1.0); CALCIUM LEVEL 9.7 MG/DL (8.8-10.2); CREATININE FOR GFR 2.64 MG/DL (0.70-1.30); POTASSIUM SERUM 4.8 MEQ/L (3.5-5.1); TOTAL PROTEIN 6.3 GM/DL (6.4-8.2)
[2016-10-18] MEDS ORDERED: SIMV20TA2 PO (13:49)
[2016-10-18] MEDS ORDERED: BACT800T5 PO (13:49)
[2016-10-18] MEDS ORDERED: WARF-20 PO (13:49)
[2016-10-18] MEDS ORDERED: SENN8.6T7 PO (13:49)
[2016-10-18] MEDS ORDERED: FLUC200T2 PO (13:49)
[2016-10-18] MEDS: DAKIN'S 0.25% HALF-STRENGTH SOLN 480 ML TOP SCH ×2 (14:58→23:59)
[2016-10-18] MEDS: PIPERACILLIN/TAZOBACTAM SOD 3.375 GM in D5W MINI-BAG PLUS 50 ML IV SCH ×2 (14:58→20:57)
[2016-10-18] MEDS ORDERED: NITROGLYCERIN 0.4 MG SUBL TABLET SL PRN (17:15)
[2016-10-18] MEDS ORDERED: MOM 30ML SUSPENSION UDC PO PRN (17:15)
[2016-10-18] MEDS: LEVEMIR (INSULIN DETEMIR) 1 UNITS/0.01ML SC SCH (17:57)
[2016-10-18] MEDS: CLOPIDOGREL 75 MG TAB PO SCH (17:57)
[2016-10-18] MEDS: MULTIVITAMINS/MINERALS THERAP 1 TAB PO SCH (17:57)
[2016-10-18] MEDS: ATENOLOL 50 MG TAB PO SCH (17:58)
[2016-10-18] MEDS: WARFARIN SOD 2.5 MG TAB PO SCH (17:58)
[2016-10-18] MEDS: WARFARIN SOD 2 MG TAB PO SCH (17:58)
[2016-10-18] MEDS: HALOPERIDOL 5 MG TAB PO SCH (18:33)
[2016-10-18] MEDS: BENZTROPINE 0.5 MG TAB PO SCH (20:56)
[2016-10-18] MEDS: SIMVASTATIN 20 MG TAB PO SCH (20:57)
[2016-10-18] MEDS: SENOKOT S TAB PO SCH (20:57)
[2016-10-18] MEDS: DOCUSATE SODIUM 100 MG CAP PO SCH (20:57)
[2016-10-18] MEDS: ZIPRASIDONE 80 MG CAP (GEODON) PO SCH (20:57)
[2016-10-19] VITALS (12 sets, daily range): BP systolic 136–148; BP diastolic 63–77; O2SAT 95–99
[2016-10-19] MEDS: PIPERACILLIN/TAZOBACTAM SOD 3.375 GM in D5W MINI-BAG PLUS 50 ML IV SCH ×4 (01:12→20:50)
[2016-10-19] MEDS: HALOPERIDOL 5 MG TAB PO SCH (08:48)
[2016-10-19] MEDS: ATENOLOL 50 MG TAB PO SCH (08:48)
[2016-10-19] MEDS: MULTIVITAMINS/MINERALS THERAP 1 TAB PO SCH (08:48)
[2016-10-19] MEDS: ZIPRASIDONE 80 MG CAP (GEODON) PO SCH ×2 (08:48→20:50)
[2016-10-19] MEDS: CLOPIDOGREL 75 MG TAB PO SCH (08:48)
[2016-10-19] MEDS: LEVEMIR (INSULIN DETEMIR) 1 UNITS/0.01ML SC SCH (08:49)
[2016-10-19] MEDS: SENOKOT S TAB PO SCH ×2 (08:49→20:50)
[2016-10-19] MEDS: DAKIN'S 0.25% HALF-STRENGTH SOLN 480 ML TOP SCH ×2 (08:51→15:33)
[2016-10-19] MEDS: ACETAMINOPHEN TAB 650MG DOSE (2X325MG) PO PRN ×2 (10:02→22:21)
[2016-10-19] MEDS: CLOTRIMAZOLE 1% TOPICAL CREAM 30GM TOP SCH ×2 (15:00→20:51)
[2016-10-19] MEDS: WARFARIN SOD 2 MG TAB PO SCH (18:07)
[2016-10-19] MEDS: WARFARIN SOD 2.5 MG TAB PO SCH (18:08)
[2016-10-19] MEDS: SIMVASTATIN 20 MG TAB PO SCH (20:50)
[2016-10-19] MEDS: FLUCONAZOLE 100 MG TAB PO SCH (20:50)
[2016-10-19] MEDS: BENZTROPINE 0.5 MG TAB PO SCH (20:50)
[2016-10-19] MEDS: DOCUSATE SODIUM 100 MG CAP PO SCH (20:50)
--- NOTE | 2016-10-19 23:15 | IPNPDOC ---
Date Seen The patient was seen on 10/19/16. Progress Note SUBJECTIVE: Patient is without complaints. OBJECTIVE PHYSICAL EXAMINATION: VITAL SIGNS: Please see below. GENERAL: Awake alert and oriented with no focal deficits and no apparent distress HEENT: Normal CARDIOVASCULAR: Regular. RESPIRATORY: Clear to auscultation. ABDOMINAL: Soft nontender nondistended EXTREMITIES: Left lower extremity is well-perfused. The left fifth toe amputation site shows decreasing cellulitis around the amputation site but with continued fibrinous exudate and slough at the base of the wound. The left femoral wounds are clean with good granulation tissue. The skin surrounding the left femoral wounds is excoriated and shows signs of fungal infection. NEUROLOGICAL: Wake alert oriented x3 with no focal deficits PSYCHOLOGICAL: Normal LABORATORY DATA: Please see below. MICROBIOLOGY: Please see below. DVT prophylaxis ordered?: Patient is therapeutic on Coumadin. ASSESSMENT AND PLAN: This is a 66-year-old white male with left femoral wound breakdown and infections was been undergoing wound care with the results. The left fifth toe amputation site is open and slow to heal with signs of cellulitis surrounding the left fifth toe amputation site. PROBLEMS: 1. left fifth toe amputation site cellulitis: She is currently on Zosyn with signs of improvement of the cellulitis in the left foot. Currently the wound is undergoing wet to dry with Dakin solution and once the cellulitis resolves he will undergo conversion to Santyl wound care. 2. left femoral wounds: Wounds are healing well with good granulation tissue, and the surrounding tissue is macerated and shows signs of fungal infection due to the large pannus overlying the wounds and thigh. These are being treated with fungal topical cream and Diflucan. DISPOSITION: Patient is stable and improving with IV antibiotic therapy. [facility] Vital Signs Date Time Temp Pulse Resp B/P (MAP) Pulse Ox O2 Delivery O2 Flow Rate FiO2 10/19/16 20:03 98.0 73 18 146/63 (90) 96 Room Air 10/19/16 16:00 2.0 I&O- Last 24 Hours up to 6 AM 10/19/16 05:59 Intake Total 1720 ml Output Total 1825 ml Balance -105 ml Laboratory Data 24H LABS Laboratory Tests 2 10/18/16 23:15: Bedside Glucose (Misc Panel) 187H 10/19/16 11:43: Bedside Glucose (Misc Panel) 248H 10/19/16 17:14: Bedside Glucose (Misc Panel) 209H 10/19/16 20:29: Bedside Glucose (Misc Panel) 273H Eugene Jeffers MD Oct 19, 2016 23:15
[2016-10-20] MEDS: PIPERACILLIN/TAZOBACTAM SOD 3.375 GM in D5W MINI-BAG PLUS 50 ML IV SCH ×4 (02:00→20:03)
[2016-10-20 06:00] VITALS: BP 156/71
[2016-10-20 06:20] LABS: INR 1.55
[2016-10-20] MEDS: CLOPIDOGREL 75 MG TAB PO SCH (08:44)
[2016-10-20] MEDS: FLUCONAZOLE 100 MG TAB PO SCH ×2 (08:44→20:02)
[2016-10-20] MEDS: ATENOLOL 50 MG TAB PO SCH (08:44)
[2016-10-20] MEDS: ZIPRASIDONE 80 MG CAP (GEODON) PO SCH ×2 (08:44→20:02)
[2016-10-20] MEDS: LEVEMIR (INSULIN DETEMIR) 1 UNITS/0.01ML SC SCH (08:44)
[2016-10-20] MEDS: MULTIVITAMINS/MINERALS THERAP 1 TAB PO SCH (08:44)
[2016-10-20] MEDS: HALOPERIDOL 5 MG TAB PO SCH (08:44)
[2016-10-20] MEDS: SENOKOT S TAB PO SCH ×2 (08:44→20:02)
[2016-10-20] MEDS: DAKIN'S 0.25% HALF-STRENGTH SOLN 480 ML TOP SCH ×4 (08:45→23:31)
[2016-10-20] MEDS: CLOTRIMAZOLE 1% TOPICAL CREAM 30GM TOP SCH ×2 (08:46→20:03)
[2016-10-20 14:00] VITALS: BP 142/76
[2016-10-20] MEDS: WARFARIN SOD 2 MG TAB PO SCH (16:15)
[2016-10-20] MEDS: WARFARIN SOD 2.5 MG TAB PO SCH (16:16)
[2016-10-20] MEDS: SIMVASTATIN 20 MG TAB PO SCH (20:02)
[2016-10-20] MEDS: BENZTROPINE 0.5 MG TAB PO SCH (20:02)
[2016-10-20] MEDS: DOCUSATE SODIUM 100 MG CAP PO SCH (20:02)
[2016-10-20 22:00] VITALS: BP 158/89
[2016-10-21] MEDS: PIPERACILLIN/TAZOBACTAM SOD 3.375 GM in D5W MINI-BAG PLUS 50 ML IV SCH ×4 (02:05→20:11)
[2016-10-21 06:00] VITALS: BP 150/62
[2016-10-21] MEDS: MULTIVITAMINS/MINERALS THERAP 1 TAB PO SCH (08:35)
[2016-10-21] MEDS: DAKIN'S 0.25% HALF-STRENGTH SOLN 480 ML TOP SCH ×2 (08:35→16:24)
[2016-10-21] MEDS: ZIPRASIDONE 80 MG CAP (GEODON) PO SCH ×2 (08:35→20:11)
[2016-10-21] MEDS: FLUCONAZOLE 100 MG TAB PO SCH ×2 (08:35→20:11)
[2016-10-21] MEDS: SENOKOT S TAB PO SCH ×2 (08:35→20:11)
[2016-10-21] MEDS: CLOTRIMAZOLE 1% TOPICAL CREAM 30GM TOP SCH ×2 (08:36→20:12)
[2016-10-21] MEDS: ATENOLOL 50 MG TAB PO SCH (08:36)
[2016-10-21] MEDS: CLOPIDOGREL 75 MG TAB PO SCH (08:36)
[2016-10-21] MEDS: HALOPERIDOL 5 MG TAB PO SCH (08:36)
[2016-10-21] MEDS: LEVEMIR (INSULIN DETEMIR) 1 UNITS/0.01ML SC SCH (08:37)
[2016-10-21] MEDS: WARFARIN SOD 2.5 MG TAB PO SCH (16:23)
[2016-10-21] MEDS: WARFARIN SOD 2 MG TAB PO SCH (16:23)
[2016-10-21] MEDS: BENZTROPINE 0.5 MG TAB PO SCH (20:11)
[2016-10-21] MEDS: DOCUSATE SODIUM 100 MG CAP PO SCH (20:11)
[2016-10-21] MEDS: SIMVASTATIN 20 MG TAB PO SCH (20:11)
[2016-10-21 22:00] VITALS: BP 154/73
--- NOTE | 2016-10-21 22:05 | IPNPDOC ---
Date Seen The patient was seen on 10/20/16. Progress Note SUBJECTIVE: Patient is without complaints. OBJECTIVE PHYSICAL EXAMINATION: VITAL SIGNS: Please see below. GENERAL: Awake alert sitting up on the edge of the bed in no apparent distress HEENT: Normal CARDIOVASCULAR: Irregular. RESPIRATORY: Clear to auscultation bilaterally. ABDOMINAL: Soft nontender nondistended EXTREMITIES: Left lower extremity is well-perfused left fifth toe amputation site shows minimal cannulation tissue with some fibrinous exudate. The left femoral wounds show good granulation tissue and are healing well. Cellulitis in the left foot is resolving. NEUROLOGICAL: Awake alert oriented x3 with no focal deficits PSYCHOLOGICAL: Normal LABORATORY DATA: Please see below. MICROBIOLOGY: Please see below. DVT prophylaxis ordered?: Patient is on Coumadin ASSESSMENT AND PLAN: This is a 66-year-old white male with nonhealing left fifth toe amputation site who underwent a left femoral endarterectomy with revascularization of his left lower extremity. The patient had subsequent breakdown of his left inguinal incisions and has been undergoing therapy with good result with good healing of the inguinal wounds. The left fifth toe amputation site has been slow to heal and the patient was admitted with cellulitis of the foot surrounding the left fifth toe amputation site. PROBLEMS: 1. left femoral wounds breakdown and infection: The wounds are healing well. The patient was undergoing back therapy but has been converted to wet to dry dressings. 2. left fifth toe nonhealing amputation site and cellulitis: The cellulitis is resolving with IV antibiotic therapy. The wound continues to be slow to heal with minimal granulation tissue. The patient is undergoing wet to dry dressings with Dakin solution for the left fifth toe amputation site wound. DISPOSITION: Patient is improving and progressing towards discharge to a nursing facility that will accept the patient with his wounds. [facility]O Vital Signs Date Time Temp Pulse Resp B/P (MAP) Pulse Ox O2 Delivery O2 Flow Rate FiO2 10/21/16 08:40 Room Air 10/21/16 08:36 62 142/70 10/21/16 06:00 98.0 20 96 10/19/16 16:00 2.0 I&O- Last 24 Hours up to 6 AM 10/21/16 06:00 Intake Total 3380 ml Output Total 3275 ml Balance 105 ml Laboratory Data 24H LABS Laboratory Tests 2 10/21/16 08:34: Bedside Glucose (Misc Panel) 281H Microbiology Microbiology 10/21/16 Gastrointestinal Tract Panel (PCR) - Final, Complete Eugene Jeffers MD Oct 21, 2016 22:05
--- NOTE | 2016-10-21 22:13 | IPNPDOC ---
Date Seen The patient was seen on 10/21/16. Progress Note SUBJECTIVE: Patient is without complaints. Patient did have some mild abdominal discomfort yesterday but this has resolved. OBJECTIVE PHYSICAL EXAMINATION: VITAL SIGNS: Please see below. GENERAL: Sitting on the edge of the bed in no apparent distress HEENT: Normal CARDIOVASCULAR: Irregularly irregular. RESPIRATORY: Clear to auscultation bilaterally. ABDOMINAL: Soft nontender nondistended EXTREMITIES: Left lower extremity is well-perfused. Left femoral wounds are clean with good healing and granulation tissue. The cellulitis in the left foot is resolving and the left fifth toe amputation site is showing some improved granulation tissue with continued fibrinous exudate. NEUROLOGICAL: Awake alert oriented x3 with no focal deficits PSYCHOLOGICAL: Normal LABORATORY DATA: Please see below. MICROBIOLOGY: Please see below. DVT prophylaxis ordered?: Patient is therapeutic on Coumadin. ASSESSMENT AND PLAN: This is a 66-year-old white male with nonhealing left fifth toe amputation site and left foot cellulitis. Patient also has breakdown of his left femoral wounds from his left femoral endarterectomy, which showing good healing. PROBLEMS: 1. left fifth toe indications wound and left foot cellulitis: The cellulitis in the left foot is resolving with IV antibiotic therapy. The left fifth toe amputation wound continues to be slow to heal. The patient underwent a left femoral endarterectomy with revascularization of his left lower extremity which resulted in resolution of his rest pain and significant improvement in perfusion of his left foot. The patient may require angiography of the remainder of the left lower extremity to evaluate for femoral popliteal and tibial peroneal arterial occlusive disease that may require treatment in order for the left fifth toe amputation site wound to heal. 2. left femoral wound breakdown: The left femoral wounds are healing well and show good signs of healing with good granulation tissue. The skin surrounding the wounds is excoriated due to the patient's large pannus overlying the tissue and creating a continuous moist environment which causes fungal infection and maceration of the skin. Patient will continue to undergo wet-to-dry dressings with a large amount of dry dressings in between the pannus and the thigh to prevent moisture accumulation and fungal infection. Patient is on Diflucan and antifungal cream for his left inguinal fungal infection. DISPOSITION: Patient is improving and wounds are healing in the inguinal region. Patient will require transfer to a nursing facility for continued wound management. VS, I&O, 24H, [facility] Vital Signs/I&O Vital Signs Date Time Temp Pulse Resp B/P (MAP) Pulse Ox O2 Delivery O2 Flow Rate FiO2 10/21/16 08:40 Room Air 10/21/16 08:36 62 142/70 10/21/16 06:00 98.0 20 96 10/19/16 16:00 2.0 I&O- Last 24 Hours up to 6 AM 10/21/16 06:00 Intake Total 3380 ml Output Total 3275 ml Balance 105 ml Laboratory Data 24H LABS Laboratory Tests 2 10/21/16 08:34: Bedside Glucose (Misc Panel) 281H Microbiology Microbiology 10/21/16 Gastrointestinal Tract Panel (PCR) - Final, Complete Eugene Jeffers MD Oct 21, 2016 22:13
[2016-10-22] MEDS: DAKIN'S 0.25% HALF-STRENGTH SOLN 480 ML TOP SCH ×3 (00:09→17:00)
[2016-10-22] MEDS: PIPERACILLIN/TAZOBACTAM SOD 3.375 GM in D5W MINI-BAG PLUS 50 ML IV SCH ×4 (02:25→20:00)
[2016-10-22 06:00] VITALS: BP 149/70
[2016-10-22] MEDS: ATENOLOL 50 MG TAB PO SCH (09:20)
[2016-10-22] MEDS: CLOPIDOGREL 75 MG TAB PO SCH (09:20)
[2016-10-22] MEDS: MULTIVITAMINS/MINERALS THERAP 1 TAB PO SCH (09:21)
[2016-10-22] MEDS: ZIPRASIDONE 80 MG CAP (GEODON) PO SCH ×2 (09:21→20:16)
[2016-10-22] MEDS: SENOKOT S TAB PO SCH ×2 (09:21→20:15)
[2016-10-22] MEDS: CLOTRIMAZOLE 1% TOPICAL CREAM 30GM TOP SCH ×2 (09:21→20:16)
[2016-10-22] MEDS: FLUCONAZOLE 100 MG TAB PO SCH ×2 (09:21→20:15)
[2016-10-22] MEDS: HALOPERIDOL 5 MG TAB PO SCH (09:21)
[2016-10-22] MEDS: LEVEMIR (INSULIN DETEMIR) 1 UNITS/0.01ML SC SCH (09:24)
[2016-10-22] MEDS: WARFARIN SOD 2 MG TAB PO SCH (17:00)
[2016-10-22] MEDS: WARFARIN SOD 2.5 MG TAB PO SCH (17:00)
[2016-10-22] MEDS: DOCUSATE SODIUM 100 MG CAP PO SCH (20:12)
[2016-10-22] MEDS: SIMVASTATIN 20 MG TAB PO SCH (20:15)
[2016-10-22] MEDS: BENZTROPINE 0.5 MG TAB PO SCH (20:15)
[2016-10-22 21:30] VITALS: BP 138/67
--- NOTE | 2016-10-22 23:16 | IPNPDOC ---
Date Seen The patient was seen on 10/22/16. Progress Note SUBJECTIVE: Patient is without complaints OBJECTIVE PHYSICAL EXAMINATION: VITAL SIGNS: Please see below. GENERAL: Sitting up against the bed in no distress HEENT: Normal CARDIOVASCULAR: No murmurs rubs or gallops. RESPIRATORY: Clear to auscultation bilaterally. ABDOMINAL: Soft nontender nondistended EXTREMITIES: Left lower extremity is perfused well. Left fifth toe amputation site continues to be slow to heal with minimal granulation tissue and fibrinous exudate in the wound. NEUROLOGICAL: Wake alert oriented x3 with no focal deficits. PSYCHOLOGICAL: Normal LABORATORY DATA: Please see below. MICROBIOLOGY: Please see below. DVT prophylaxis ordered?: Patient is therapeutic on Coumadin ASSESSMENT AND PLAN: This is a 66-year-old white male with nonhealing left fifth toe amputation site, arterial occlusive disease of the left lower extremity, and breakdown of the left femoral wounds from a left femoral endarterectomy as well as diabetes. PROBLEMS: 1. nonhealing left fifth amputation of toe: The site has continued to be slow to heal there is no signs of infection and the cellulitis in the left foot is resolving with antibiotics. The patient had a left femoral endarterectomy due to severe arterial occlusive disease in the femoral artery and has disease distally which was not treated or evaluated due to the severe stenosis in the femoral artery. If the left fifth toe amputation site continues to be nonhealing the patient will require an angiogram to and improve the blood flow into the foot further. 2. left femoral wounds: The wounds are healing well with good granulation tissue albeit the patient has fungal infection in the overlying pannus and skin surrounding the wounds which is being treated with Diflucan and antifungal cream. 3. diabetes mellitus: Patient has poorly controlled diabetes and noncompliance and will require tighter control of his diabetes. DISPOSITION: Patient is improving and progressing towards discharge. Patient may be discharged to home if home health is available and willing to participate in the patients care which they have not been willing to do in the past due to his noncompliance. If patient is unable to be discharged home we will attempt to place him at [facility] [place] keep it if possible. VS, I&O, 24H, [facility] Vital Signs/I&O Vital Signs Date Time Temp Pulse Resp B/P (MAP) Pulse Ox O2 Delivery O2 Flow Rate FiO2 10/22/16 21:30 99.4 66 18 138/67 (90) 96 Room Air 10/19/16 16:00 2.0 I&O- Last 24 Hours up to 6 AM 10/22/16 05:59 Intake Total 4520 ml Output Total 2200 ml Balance 2320 ml Laboratory Data 24H LABS Laboratory Tests 2 10/22/16 09:23: Bedside Glucose (Misc Panel) 247H Microbiology Microbiology 10/21/16 Gastrointestinal Tract Panel (PCR) - Final, Complete Eugene Jeffers MD Oct 22, 2016 23:16
[2016-10-23] MEDS: PIPERACILLIN/TAZOBACTAM SOD 3.375 GM in D5W MINI-BAG PLUS 50 ML IV SCH ×4 (02:00→20:07)
[2016-10-23] MEDS: ACETAMINOPHEN TAB 650MG DOSE (2X325MG) PO PRN (02:45)
[2016-10-23 06:00] VITALS: BP 138/66
[2016-10-23 06:09] LABS: INR 2.41
[2016-10-23] MEDS: LEVEMIR (INSULIN DETEMIR) 1 UNITS/0.01ML SC SCH (08:16)
[2016-10-23] MEDS: CLOTRIMAZOLE 1% TOPICAL CREAM 30GM TOP SCH ×2 (08:16→20:06)
[2016-10-23] MEDS: ZIPRASIDONE 80 MG CAP (GEODON) PO SCH ×2 (08:16→20:05)
[2016-10-23] MEDS: ATENOLOL 50 MG TAB PO SCH (08:19)
[2016-10-23] MEDS: CLOPIDOGREL 75 MG TAB PO SCH (08:19)
[2016-10-23] MEDS: HALOPERIDOL 5 MG TAB PO SCH (08:20)
[2016-10-23] MEDS: FLUCONAZOLE 100 MG TAB PO SCH ×2 (08:20→20:05)
[2016-10-23] MEDS: DAKIN'S 0.25% HALF-STRENGTH SOLN 480 ML TOP SCH ×3 (08:20→17:48)
[2016-10-23] MEDS: SENOKOT S TAB PO SCH ×2 (08:20→20:06)
[2016-10-23] MEDS: MULTIVITAMINS/MINERALS THERAP 1 TAB PO SCH (08:20)
[2016-10-23 14:00] VITALS: BP 152/89
[2016-10-23] MEDS: WARFARIN SOD 2.5 MG TAB PO SCH (17:48)
[2016-10-23] MEDS: WARFARIN SOD 2 MG TAB PO SCH (17:48)
[2016-10-23] MEDS: SIMVASTATIN 20 MG TAB PO SCH (20:05)
[2016-10-23] MEDS: BENZTROPINE 0.5 MG TAB PO SCH (20:05)
[2016-10-23] MEDS: DOCUSATE SODIUM 100 MG CAP PO SCH (20:06)
[2016-10-23 21:30] VITALS: BP 166/74
[2016-10-24] MEDS: PIPERACILLIN/TAZOBACTAM SOD 3.375 GM in D5W MINI-BAG PLUS 50 ML IV SCH ×4 (01:42→20:21)
[2016-10-24 06:10] VITALS: BP 171/85
[2016-10-24 06:30] LABS: MEAN CORPUSCULAR HEMOGLOBIN 30.3 pg (27.0-33.0); MEAN CORPUSCULAR HGB CONC 32.8 g/dl (32.0-36.5); MEAN CORPUSCULAR VOLUME 92.3 fl (80.0-96.0); RED CELL DISTRIBUTION WIDTH 15.8 % (11.5-14.5); WHITE BLOOD COUNT 9.7 K/mm3 (4.0-10.0)
[2016-10-24 06:32] LABS: CALCIUM LEVEL 9.5 MG/DL (8.8-10.2); CREATININE FOR GFR 2.19 MG/DL (0.70-1.30); GLOMERULAR FILTRATION RATE 32.2 (>49); POTASSIUM SERUM 4.1 MEQ/L (3.5-5.1)
[2016-10-24] MEDS: DAKIN'S 0.25% HALF-STRENGTH SOLN 480 ML TOP SCH ×3 (08:00→17:45)
[2016-10-24] MEDS: CLOTRIMAZOLE 1% TOPICAL CREAM 30GM TOP SCH ×2 (09:00→20:23)
[2016-10-24] MEDS: SENOKOT S TAB PO SCH ×2 (09:00→20:22)
[2016-10-24] MEDS: FLUCONAZOLE 100 MG TAB PO SCH ×2 (09:00→20:21)
[2016-10-24] MEDS: HALOPERIDOL 5 MG TAB PO SCH (09:00)
[2016-10-24] MEDS: ZIPRASIDONE 80 MG CAP (GEODON) PO SCH ×2 (09:00→20:21)
[2016-10-24] MEDS: LEVEMIR (INSULIN DETEMIR) 1 UNITS/0.01ML SC SCH (09:00)
[2016-10-24] MEDS: MULTIVITAMINS/MINERALS THERAP 1 TAB PO SCH (09:00)
[2016-10-24] MEDS: ATENOLOL 50 MG TAB PO SCH (09:00)
[2016-10-24] MEDS: CLOPIDOGREL 75 MG TAB PO SCH (09:00)
[2016-10-24 14:00] VITALS: BP 158/76
[2016-10-24] MEDS: WARFARIN SOD 2.5 MG TAB PO SCH (18:42)
[2016-10-24] MEDS: WARFARIN SOD 2 MG TAB PO SCH (18:42)
[2016-10-24] MEDS: DOCUSATE SODIUM 100 MG CAP PO SCH (20:21)
[2016-10-24] MEDS: BENZTROPINE 0.5 MG TAB PO SCH (20:21)
[2016-10-24] MEDS: SIMVASTATIN 20 MG TAB PO SCH (20:21)
--- NOTE | 2016-10-24 21:01 | IPNPDOC ---
Date Seen The patient was seen on 10/23/16. Progress Note SUBJECTIVE: Patient is without complaints OBJECTIVE PHYSICAL EXAMINATION: VITAL SIGNS: Please see below. GENERAL: No apparent distress HEENT: Normal CARDIOVASCULAR: Regular. RESPIRATORY: Clear to auscultation. ABDOMINAL: Soft nontender nondistended EXTREMITIES: Left fifth toe amputation site is clean with minimal signs of healing and on a small minor granulation tissue. Left femoral wounds are clean with good granulation tissue and healing well. NEUROLOGICAL: Clear are negative x3 with no focal deficits PSYCHOLOGICAL: Normal LABORATORY DATA: Please see below. MICROBIOLOGY: Please see below. DVT prophylaxis ordered?: Patient is therapeutic on Coumadin ASSESSMENT AND PLAN: This is a 66-year-old white male with nonhealing left fifth toe amputation site, severe atherosclerotic arterial occlusive disease in the left lower extremity and breakdown of left femoral endarterectomy wounds which are healing. The patient was admitted to the hospital for synovitis of the left foot surrounding the left fifth toe nonhealing amputation site. PROBLEMS: 1. left lower extremity ischemia and wounds: Patient underwent a left femoral endarterectomy with improved perfusion of the left lower extremity and relief of the patient's claudication and rest pain. The left fifth toe amputation site has shown signs of healing but slow to heal. The patient was admitted with synovitis of the left foot which is resolving with antibiotic therapy. DISPOSITION: Patient is progressing well and wounds are healing as well cellulitis or both resolving. Patient will require placement for continued wound care and treatment. [facility]O Vital Signs Date Time Temp Pulse Resp B/P (MAP) Pulse Ox O2 Delivery O2 Flow Rate FiO2 10/24/16 14:00 96.9 61 18 158/76 (103) 95 Room Air 10/19/16 16:00 2.0 I&O- Last 24 Hours up to 6 AM 10/24/16 06:00 Intake Total 2380 ml Output Total 4490 ml Balance -2110 ml Laboratory Data 24H LABS Laboratory Tests 2 10/24/16 05:36: Anion Gap 8, Glomerular Filtration Rate 32.2L, Blood Urea Nitrogen 29H, Creatinine 2.19H, Sodium Level 141, Potassium Level 4.1, Chloride Level 104, Carbon Dioxide Level 29, Calcium Level 9.5 CBC/BMP Laboratory Tests 10/24/16 05:36 Red Blood Count 3.65 L, Mean Corpuscular Volume 92.3, Mean Corpuscular Hemoglobin 30.3, Mean Corpuscular Hemoglobin Concent 32.8, Red Cell Distribution Width 15.8 H, Calcium Level 9.5 Microbiology Microbiology 10/21/16 Gastrointestinal Tract Panel (PCR) - Final, Complete Eugene Jeffers MD Oct 24, 2016 21:01
--- NOTE | 2016-10-24 21:06 | IPNPDOC ---
Date Seen The patient was seen on 10/24/16. Progress Note SUBJECTIVE: Patient is without complaints. OBJECTIVE PHYSICAL EXAMINATION: VITAL SIGNS: Please see below. GENERAL: Sitting on the edge of the bed no apparent distress HEENT: Normal CARDIOVASCULAR: Regular. RESPIRATORY: Clear to auscultation bilaterally. ABDOMINAL: Soft nontender and nondistended EXTREMITIES: Left lower extremity is well-perfused. Left femoral wounds are healing with good signs of granulation tissue but with continued excoriation of the surrounding tissue due to his overlying large pannus and continued entrapped moisture. Left fifth toe amputation site shows minimal signs of healing and cellulitis in the left foot is resolving. NEUROLOGICAL: Awake alert oriented x3 in no focal deficits PSYCHOLOGICAL: Normal LABORATORY DATA: Please see below. MICROBIOLOGY: Please see below. DVT prophylaxis ordered?: She is therapeutic on Coumadin ASSESSMENT AND PLAN: This is a 66-year-old white male with left lower extremity atherosclerotic arterial occlusive disease who underwent a left fifth toe amputation which was nonhealing and became infected. Patient subsequently underwent a left femoral endarterectomy for revascularization and improved blood flow to the left lower extremity. The patient had breakdown of the femoral wounds and has been undergoing Wound Care with good healing of the left femoral wounds. The left fifth toe amputation site has been slow to heal and the patient was admitted with cellulitis of the left foot. PROBLEMS: 1. nonhealing left fifth toe amputation site: Patient will require further evaluation of the left lower extremity and will undergo an arterial duplex of the left lower extremity with possible future left lower extremity angiogram. 2. left femoral wounds: Wounds are healing well with good granulation tissue. Patient was undergoing VAC therapy for the wounds and is now undergoing wet to dry dressings with good healing. DISPOSITION: Patient is improving and progressing towards discharge to a nursing facility. VS, I&O, 24H, [facility] Vital Signs/I&O Vital Signs Date Time Temp Pulse Resp B/P (MAP) Pulse Ox O2 Delivery O2 Flow Rate FiO2 10/24/16 14:00 96.9 61 18 158/76 (103) 95 Room Air 10/19/16 16:00 2.0 I&O- Last 24 Hours up to 6 AM 10/24/16 06:00 Intake Total 2380 ml Output Total 4490 ml Balance -2110 ml Laboratory Data 24H LABS Laboratory Tests 2 10/24/16 05:36: Anion Gap 8, Glomerular Filtration Rate 32.2L, Blood Urea Nitrogen 29H, Creatinine 2.19H, Sodium Level 141, Potassium Level 4.1, Chloride Level 104, Carbon Dioxide Level 29, Calcium Level 9.5 CBC/BMP Laboratory Tests 10/24/16 05:36 Red Blood Count 3.65 L, Mean Corpuscular Volume 92.3, Mean Corpuscular Hemoglobin 30.3, Mean Corpuscular Hemoglobin Concent 32.8, Red Cell Distribution Width 15.8 H, Calcium Level 9.5 Microbiology Microbiology 10/21/16 Gastrointestinal Tract Panel (PCR) - Final, Complete Eugene Jeffers MD Oct 24, 2016 21:06
[2016-10-24 21:40] VITALS: BP 158/82
[2016-10-25] MEDS: DAKIN'S 0.25% HALF-STRENGTH SOLN 480 ML TOP SCH ×4 (00:06→23:34)
[2016-10-25] MEDS: PIPERACILLIN/TAZOBACTAM SOD 3.375 GM in D5W MINI-BAG PLUS 50 ML IV SCH ×4 (01:35→23:33)
[2016-10-25 05:30] VITALS: BP 167/79
[2016-10-25] MEDS: HALOPERIDOL 5 MG TAB PO SCH (09:00)
[2016-10-25] MEDS: SENOKOT S TAB PO SCH ×2 (09:00→21:00)
[2016-10-25] MEDS: ATENOLOL 50 MG TAB PO SCH (09:00)
[2016-10-25] MEDS: CLOPIDOGREL 75 MG TAB PO SCH (09:00)
[2016-10-25] MEDS: FLUCONAZOLE 100 MG TAB PO SCH ×2 (09:00→21:00)
[2016-10-25] MEDS: ZIPRASIDONE 80 MG CAP (GEODON) PO SCH ×2 (09:00→21:29)
[2016-10-25] MEDS: MULTIVITAMINS/MINERALS THERAP 1 TAB PO SCH (09:00)
[2016-10-25] MEDS: LEVEMIR (INSULIN DETEMIR) 1 UNITS/0.01ML SC SCH (09:00)
[2016-10-25] MEDS: CLOTRIMAZOLE 1% TOPICAL CREAM 30GM TOP SCH ×2 (09:00→21:00)
[2016-10-25] MEDS: ACETAMINOPHEN TAB 650MG DOSE (2X325MG) PO PRN (11:36)
[2016-10-25 14:00] VITALS: BP 155/70
[2016-10-25] MEDS: WARFARIN SOD 2.5 MG TAB PO SCH (17:00)
[2016-10-25] MEDS: WARFARIN SOD 2 MG TAB PO SCH (17:00)
--- NOTE | 2016-10-25 17:18 | REP ---
LEFT LOWER EXTREMITY DUPLEX DOPPLER ARTERIAL ULTRASOUND: Real-time ultrasound evaluation and duplex Doppler evaluation of the left lower extremity arterial system is performed. The patient refused blood pressure measurements. Left common femoral artery, profunda and proximal superficial femoral artery cannot be seen due to overlying bandages. Mid left superficial femoral artery peak systolic velocity 29.8 cm/s with monophasic waveform, distal SFA, 9.6 cm/s with monophasic waveform. Left popliteal artery velocity is 40.5 cm/s with monophasic waveform. Proximal anterior tibial artery cannot be visualized. Tibial peritoneal trunk demonstrates velocity of 23.5 cm/s with monophasic waveform. No flow is seen in the proximal or distal posterior tibial artery. Distal anterior tibial artery demonstrates peak systolic velocity 25.7 cm/s with monophasic waveform. Left genicular artery is seen with peak systolic velocity 43.9 cm/s, apparently reconstituting popliteal and peroneal artery arteries. Peak systolic velocity of the peroneal artery is 26.4 cm/s with monophasic waveform. Signed by Prabhu Aguilar MD 10/26/2016 08:44 A
[2016-10-25] MEDS: SIMVASTATIN 20 MG TAB PO SCH (21:00)
[2016-10-25] MEDS: DOCUSATE SODIUM 100 MG CAP PO SCH (21:00)
[2016-10-25] MEDS: BENZTROPINE 0.5 MG TAB PO SCH (21:00)
[2016-10-25 22:00] VITALS: BP 158/64
--- NOTE | 2016-10-25 23:12 | IPNPDOC ---
Date Seen The patient was seen on 10/25/16. Progress Note SUBJECTIVE: Patient is without complaints OBJECTIVE PHYSICAL EXAMINATION: VITAL SIGNS: Please see below. GENERAL: Lying in bed in no apparent distress HEENT: Normal CARDIOVASCULAR: Regular. RESPIRATORY: Clear to auscultation. ABDOMINAL: Soft nontender nondistended EXTREMITIES: Left lower extremity shows good perfusion. The left fifth toe amputation site continues to be nonhealing with only minimal granulation tissue. The left femoral wounds are healing well with good granulation tissue. NEUROLOGICAL: Weak alert oriented x3 with no focal deficits PSYCHOLOGICAL: Normal LABORATORY DATA: Please see below. MICROBIOLOGY: Please see below. IMAGING: Patient underwent arterial duplex of the left lower extremity showing monophasic flow in the superficial femoral popliteal and tibial vessels. DVT prophylaxis ordered?: Patient therapeutic on Coumadin ASSESSMENT AND PLAN: This is a 66-year-old white male with left lower extremity arterial occlusive disease who underwent an arterial duplex showing monophasic flow in the superficial femoral, popliteal and tibial vessels. PROBLEMS: 1. left lower extremity nonhealing left fifth amputation site: Patient will undergo his grandma the left lower extremity for attempts at improved flow for wound healing of the left fifth toe amputation site. VS, I&O, 24H, Fishbone Vital Signs/I&O Vital Signs Date Time Temp Pulse Resp B/P (MAP) Pulse Ox O2 Delivery O2 Flow Rate FiO2 10/25/16 22:00 97.5 61 20 158/64 (95) 98 10/25/16 14:00 Room Air 10/19/16 16:00 2.0 I&O- Last 24 Hours up to 6 AM 10/25/16 05:59 Intake Total 2905 ml Output Total 3500 ml Balance -595 ml Laboratory Data 24H LABS Laboratory Tests 2 10/25/16 10:18: Bedside Glucose (Misc Panel) 266H Microbiology Microbiology 10/21/16 Gastrointestinal Tract Panel (PCR) - Final, Complete Eugene Jeffers MD Oct 25, 2016 23:12
[2016-10-26] VITALS (10 sets, daily range): BP systolic 124–172; BP diastolic 52–88
[2016-10-26] MEDS: PIPERACILLIN/TAZOBACTAM SOD 3.375 GM in D5W MINI-BAG PLUS 50 ML IV SCH ×4 (05:24→22:49)
[2016-10-26] MEDS: CLOPIDOGREL 75 MG TAB PO SCH (08:48)
[2016-10-26] MEDS: HALOPERIDOL 5 MG TAB PO SCH (08:48)
[2016-10-26] MEDS: FLUCONAZOLE 100 MG TAB PO SCH ×2 (08:48→21:18)
[2016-10-26] MEDS: MULTIVITAMINS/MINERALS THERAP 1 TAB PO SCH (08:48)
[2016-10-26] MEDS: ATENOLOL 50 MG TAB PO SCH (08:48)
[2016-10-26] MEDS: ZIPRASIDONE 80 MG CAP (GEODON) PO SCH ×2 (08:48→21:18)
[2016-10-26] MEDS: SENOKOT S TAB PO SCH ×2 (08:50→21:20)
[2016-10-26] MEDS: LEVEMIR (INSULIN DETEMIR) 1 UNITS/0.01ML SC SCH (08:50)
[2016-10-26] MEDS: DAKIN'S 0.25% HALF-STRENGTH SOLN 480 ML TOP SCH ×2 (08:51→16:00)
[2016-10-26] MEDS: CLOTRIMAZOLE 1% TOPICAL CREAM 30GM TOP SCH ×2 (09:00→21:22)
[2016-10-26] MEDS ORDERED: fentaNYL 100 MCG/2 ML INJECTION (J3010) As Ordered ONE (10:48)
[2016-10-26] MEDS ORDERED: MIDAZOLAM INJ 2 MG/2 ML VIAL (J2250) As Ordered ONE (10:48)
[2016-10-26] MEDS ORDERED: ISOVUE-300 61% 50ML VIAL (Q9967) As Ordered ONE (10:49)
[2016-10-26] MEDS ORDERED: HEPARIN 1,000 UNITS/ML 10ML VIAL (FOR RADIOLOGY& DIALYSIS ONLY) As Ordered ONE (10:49)
[2016-10-26] MEDS ORDERED: cloNIDine 0.1 MG TAB PO ONE (15:00)
[2016-10-26] MEDS: WARFARIN SOD 2 MG TAB PO SCH (18:26)
[2016-10-26] MEDS: WARFARIN SOD 2.5 MG TAB PO SCH (18:27)
[2016-10-26] MEDS: SIMVASTATIN 20 MG TAB PO SCH (21:18)
[2016-10-26] MEDS: BENZTROPINE 0.5 MG TAB PO SCH (21:18)
[2016-10-26] MEDS: DOCUSATE SODIUM 100 MG CAP PO SCH (21:20)
--- NOTE | 2016-10-26 23:29 | IPNPDOC ---
Date Seen The patient was seen on 10/26/16. Progress Note SUBJECTIVE: Patient is without complaints. Patient underwent angiography of the left lower extremity. OBJECTIVE PHYSICAL EXAMINATION: VITAL SIGNS: Please see below. GENERAL: In no apparent distress lying in bed. HEENT: Normal CARDIOVASCULAR: Regular rate and rhythm. RESPIRATORY: Clear to auscultation bilaterally. ABDOMINAL: Soft nontender nondistended EXTREMITIES: Left lower extremity is perfused well. The left groin wounds are healing well. Left fifth toe amputation site remains to be slow to heal. Right femoral cannulation site is clean with no signs of hematoma or bleeding. NEUROLOGICAL: Awake alert oriented x3 with no focal deficits PSYCHOLOGICAL: Normal LABORATORY DATA: Please see below. MICROBIOLOGY: Please see below. IMAGING: Patient underwent a left lower extremity and gram showing severe occlusive disease in the superficial femoral and popliteal arteries with occlusion of the SFA and reconstitution above knee popliteal artery and severe tibial peroneal artery occlusive disease distally which was difficult to visualize due to the occluded superficial femoral and popliteal artery and contrast limitations due to his chronic renal insufficiency. DVT prophylaxis ordered?: Patient is therapeutic on Coumadin. ASSESSMENT AND PLAN: This is a 66-year-old white male with left lower extremity arterial occlusive disease and a nonhealing left fifth toe amputation site. Patient underwent angiography of the left lower extremity which showed superficial femoral and popliteal artery occlusion. PROBLEMS: 1. left lower extremity arterial occlusive disease: Patient will undergo attempted recanalization of the occluded left superficial femoral and popliteal arteries with possible anoplasty and stenting as long as his renal function remained stable. 2. chronic renal insufficiency: Patient had angiography with contrast usage and labs will be checked in the a.m. to rule out contrast-induced nephropathy. 3. left femoral endarterectomy wound to his since an infection: Wounds are healing well with good granulation tissue. DISPOSITION: Patient will require a left lower extremity into gram with possible angioplasty and stent in order to improve arterial inflow to the left foot for healing of the left fifth toe amputation site. VS, I&O, 24H, Fishbone Vital Signs/I&O Vital Signs Date Time Temp Pulse Resp B/P (MAP) Pulse Ox O2 Delivery O2 Flow Rate FiO2 10/26/16 22:00 97.8 65 20 156/70 (98) 97 10/26/16 21:22 Room Air I&O- Last 24 Hours up to 6 AM 10/26/16 06:00 Intake Total 2140 ml Output Total 4250 ml Balance -2110 ml Laboratory Data 24H LABS Laboratory Tests 2 10/26/16 08:27: Bedside Glucose (Misc Panel) 195H Microbiology Microbiology 10/21/16 Gastrointestinal Tract Panel (PCR) - Final, Complete Eugene Jeffers MD Oct 26, 2016 23:29
[2016-10-27] MEDS: ACETAMINOPHEN TAB 650MG DOSE (2X325MG) PO PRN (00:13)
[2016-10-27 02:00] VITALS: BP 146/70
[2016-10-27] MEDS: PIPERACILLIN/TAZOBACTAM SOD 3.375 GM in D5W MINI-BAG PLUS 50 ML IV SCH ×4 (04:53→22:15)
[2016-10-27 06:00] VITALS: BP 163/79
[2016-10-27 08:22] LABS: MEAN CORPUSCULAR HEMOGLOBIN 30.8 pg (27.0-33.0); MEAN CORPUSCULAR HGB CONC 33.5 g/dl (32.0-36.5); MEAN CORPUSCULAR VOLUME 91.9 fl (80.0-96.0); RED CELL DISTRIBUTION WIDTH 16.1 % (11.5-14.5); WHITE BLOOD COUNT 8.7 K/mm3 (4.0-10.0)
[2016-10-27 08:29] LABS: INR 3.96
[2016-10-27] MEDS: SENOKOT S TAB PO SCH ×2 (09:00→22:10)
[2016-10-27 09:08] LABS: CALCIUM LEVEL 8.5 MG/DL (8.8-10.2); POTASSIUM SERUM 3.7 MEQ/L (3.5-5.1)
[2016-10-27] MEDS: MULTIVITAMINS/MINERALS THERAP 1 TAB PO SCH (09:41)
[2016-10-27] MEDS: CLOPIDOGREL 75 MG TAB PO SCH (09:41)
[2016-10-27] MEDS: FLUCONAZOLE 100 MG TAB PO SCH ×2 (09:41→22:07)
[2016-10-27] MEDS: ZIPRASIDONE 80 MG CAP (GEODON) PO SCH ×2 (09:44→22:07)
[2016-10-27] MEDS: DAKIN'S 0.25% HALF-STRENGTH SOLN 480 ML TOP SCH ×3 (09:44→16:55)
[2016-10-27] MEDS: HALOPERIDOL 5 MG TAB PO SCH (09:44)
[2016-10-27] MEDS: ATENOLOL 50 MG TAB PO SCH (09:45)
[2016-10-27] MEDS: CLOTRIMAZOLE 1% TOPICAL CREAM 30GM TOP SCH ×2 (09:46→22:13)
[2016-10-27] MEDS: LEVEMIR (INSULIN DETEMIR) 1 UNITS/0.01ML SC SCH (09:46)
[2016-10-27 10:00] VITALS: BP 144/62
[2016-10-27 11:09] LABS: CREATININE FOR GFR 2.3 MG/DL (0.70-1.30); GLOMERULAR FILTRATION RATE 30.4 (>49)
[2016-10-27 14:00] VITALS: BP 158/58
--- NOTE | 2016-10-27 16:20 | IPNPDOC ---
Date Seen The patient was seen on 10/27/16. Progress Note SUBJECTIVE: Patient is without complaints. OBJECTIVE PHYSICAL EXAMINATION: VITAL SIGNS: Please see below. GENERAL: Lying in bed in no apparent distress HEENT: Normal CARDIOVASCULAR: Regular RESPIRATORY: Clear to auscultation bilaterally ABDOMINAL: Soft nontender nondistended EXTREMITIES: Left lower shoulder he is perfused. Left femoral wounds are healing with good granulation tissue. Left fifth toe amputation site continues to be slow to heal with minimal granulation tissue. NEUROLOGICAL: Awake alert oriented 3 PSYCHOLOGICAL: Normal LABORATORY DATA: Please see below. MICROBIOLOGY: Please see below. IMAGING: Vision underwent a major gram showing left superficial femoral arterial occlusive disease with complete occlusion of the superficial femoral artery with reconstitution of the above-knee popliteal artery DVT prophylaxis ordered?: Patient is therapeutic on Coumadin. ASSESSMENT AND PLAN: This is a 66-year-old white male with left lower extremity atherosclerotic arterial occlusive disease and nonhealing left fifth toe amputation site. Patient also has chronic renal insufficiency. Patient has breakdown of the left femoral endarterectomy wounds which are healing well with good granulation tissue. PROBLEMS: 1. Atherosclerotic arterial occlusive disease the left lower extremity with nonhealing left fifth toe amputation site: Patient will require left lower extremity angiography with possible angioplasty and stenting of the occluded left superficial femoral artery for improved arterial inflow to the left foot. Patient has renal insufficiency and just recently underwent an angiogram and will follow his creatinine to make sure he is stable prior to performing the left lower extremity angiogram. 2. Left femoral wounds: The wounds are healing well with good granulation tissue. 3. Chronic renal insufficiency: Anemia was stable today. Will continue to trend his creatinine over the next 24-48 hours. [facility]/I&O Vital Signs Date Time Temp Pulse Resp B/P (MAP) Pulse Ox O2 Delivery O2 Flow Rate FiO2 10/27/16 10:00 96.5 62 19 144/62 (89) 97 Room Air I&O- Last 24 Hours up to 6 AM 10/27/16 06:00 Intake Total 3040 ml Output Total 2075 ml Balance 965 ml Laboratory Data 24H LABS Laboratory Tests 2 10/27/16 08:12: Prothrombin Time 40.7H, Prothromb Time International Ratio 3.96, Anion Gap 9, Glomerular Filtration Rate 30.4L, Blood Urea Nitrogen 34H, Creatinine 2.30H, Sodium Level 134L, Potassium Level 3.7, Chloride Level 99, Carbon Dioxide Level 26, Calcium Level 8.5L CBC/BMP Laboratory Tests 10/27/16 08:12 Red Blood Count 3.55 L, Mean Corpuscular Volume 91.9, Mean Corpuscular Hemoglobin 30.8, Mean Corpuscular Hemoglobin Concent 33.5, Red Cell Distribution Width 16.1 H, Calcium Level 8.5 L Microbiology Microbiology 10/21/16 Gastrointestinal Tract Panel (PCR) - Final, Complete Eugene Jeffers MD Oct 27, 2016 16:20
[2016-10-27] MEDS: WARFARIN SOD 2 MG TAB PO SCH (16:59)
[2016-10-27] MEDS: WARFARIN SOD 2.5 MG TAB PO SCH (16:59)
[2016-10-27 18:00] VITALS: BP 146/68
[2016-10-27 22:00] VITALS: BP 152/78
[2016-10-27] MEDS: BENZTROPINE 0.5 MG TAB PO SCH (22:07)
[2016-10-27] MEDS: SIMVASTATIN 20 MG TAB PO SCH (22:07)
[2016-10-27] MEDS: DOCUSATE SODIUM 100 MG CAP PO SCH (22:10)
[2016-10-28] MEDS: DAKIN'S 0.25% HALF-STRENGTH SOLN 480 ML TOP SCH ×4 (02:03→23:23)
[2016-10-28] MEDS: ACETAMINOPHEN TAB 650MG DOSE (2X325MG) PO PRN (02:04)
[2016-10-28] MEDS: PIPERACILLIN/TAZOBACTAM SOD 3.375 GM in D5W MINI-BAG PLUS 50 ML IV SCH ×4 (04:24→23:22)
[2016-10-28 06:00] VITALS: BP 135/60
[2016-10-28 07:10] LABS: MEAN CORPUSCULAR HEMOGLOBIN 30.6 pg (27.0-33.0); MEAN CORPUSCULAR HGB CONC 33.4 g/dl (32.0-36.5); MEAN CORPUSCULAR VOLUME 91.8 fl (80.0-96.0); RED CELL DISTRIBUTION WIDTH 15.7 % (11.5-14.5); WHITE BLOOD COUNT 9.2 K/mm3 (4.0-10.0)
[2016-10-28 07:22] LABS: INR 4.8
[2016-10-28 07:37] LABS: CALCIUM LEVEL 8.7 MG/DL (8.8-10.2); CREATININE FOR GFR 2.23 MG/DL (0.70-1.30); GLOMERULAR FILTRATION RATE 31.5 (>49); POTASSIUM SERUM 3.7 MEQ/L (3.5-5.1)
[2016-10-28] MEDS: FLUCONAZOLE 100 MG TAB PO SCH ×2 (08:26→21:29)
[2016-10-28] MEDS: CLOTRIMAZOLE 1% TOPICAL CREAM 30GM TOP SCH ×2 (08:26→21:30)
[2016-10-28] MEDS: HALOPERIDOL 5 MG TAB PO SCH (08:27)
[2016-10-28] MEDS: SENOKOT S TAB PO SCH ×2 (08:27→21:28)
[2016-10-28] MEDS: MULTIVITAMINS/MINERALS THERAP 1 TAB PO SCH (08:27)
[2016-10-28] MEDS: ATENOLOL 50 MG TAB PO SCH (08:27)
[2016-10-28] MEDS: LEVEMIR (INSULIN DETEMIR) 1 UNITS/0.01ML SC SCH (08:27)
[2016-10-28] MEDS: CLOPIDOGREL 75 MG TAB PO SCH (08:27)
[2016-10-28] MEDS: ZIPRASIDONE 80 MG CAP (GEODON) PO SCH ×2 (08:27→21:27)
[2016-10-28 14:00] VITALS: BP 137/59
[2016-10-28] MEDS: SIMVASTATIN 20 MG TAB PO SCH (21:28)
[2016-10-28] MEDS: DOCUSATE SODIUM 100 MG CAP PO SCH (21:28)
[2016-10-28] MEDS: BENZTROPINE 0.5 MG TAB PO SCH (21:29)
[2016-10-28 22:00] VITALS: BP 158/74
--- NOTE | 2016-10-28 23:16 | IPNPDOC ---
Date Seen The patient was seen on 10/28/16. Progress Note SUBJECTIVE: Patient is without complaints OBJECTIVE PHYSICAL EXAMINATION: VITAL SIGNS: Please see below. GENERAL: Sitting on the edge of the bed in no apparent distress HEENT: Normal CARDIOVASCULAR: Regular. RESPIRATORY: Clear to auscultation bilaterally. ABDOMINAL: Soft nontender nondistended EXTREMITIES: Left lower extremity is perfused well. Left femoral wounds are clean with good granulation tissue. Left fifth toe amputation site is clean with resolved cellulitis of the left foot, the wound remains open and slow to heal. NEUROLOGICAL: Awake alert oriented x3 with no focal deficits PSYCHOLOGICAL: Normal LABORATORY DATA: Please see below. MICROBIOLOGY: Please see below. IMAGING: Patient underwent an angiogram showing a left superficial femoral arterial occlusive disease. DVT prophylaxis ordered?: Patient is therapeutic on Coumadin ASSESSMENT AND PLAN: This is a 66-year-old white male with left lower extremity atherosclerotic arterial occlusive disease who underwent a left femoral endarterectomy with subsequent infection and breakdown of the femoral wound which are now healing well. Patient had a left fifth toe amputation which has been nonhealing and he subsequently underwent angiography showing a left superficial femoral arterial occlusive disease. PROBLEMS: 1. left superficial femoral arterial atherosclerotic occlusive disease: Patient will require left lower extremity angiogram with possible angioplasty and stent with attempts at recanalization of the occluded left superficial femoral artery. 2. left femoral wounds: Wounds are healing well with good granulation tissue. 3. chronic renal insufficiency: Agents creatinine is stable after undergoing recent angiogram with exposure to contrast. [facility] Vital Signs Date Time Temp Pulse Resp B/P (MAP) Pulse Ox O2 Delivery O2 Flow Rate FiO2 10/28/16 22:00 98.0 63 20 158/74 (102) 98 10/28/16 22:00 Room Air I&O- Last 24 Hours up to 6 AM 10/28/16 05:59 Intake Total 2920 ml Output Total 3850 ml Balance -930 ml Laboratory Data 24H LABS Laboratory Tests 2 10/28/16 06:34: Prothrombin Time 47.6H, Prothromb Time International Ratio 4.80, Anion Gap 8, Glomerular Filtration Rate 31.5L, Blood Urea Nitrogen 32H, Creatinine 2.23H, Sodium Level 140, Potassium Level 3.7, Chloride Level 106, Carbon Dioxide Level 26, Calcium Level 8.7L CBC/BMP Laboratory Tests 10/28/16 06:34 Red Blood Count 3.46 L, Mean Corpuscular Volume 91.8, Mean Corpuscular Hemoglobin 30.6, Mean Corpuscular Hemoglobin Concent 33.4, Red Cell Distribution Width 15.7 H, Calcium Level 8.7 L Microbiology Microbiology 10/21/16 Gastrointestinal Tract Panel (PCR) - Final, Complete Eugene Jeffers MD Oct 28, 2016 23:16
[2016-10-29] MEDS: PIPERACILLIN/TAZOBACTAM SOD 3.375 GM in D5W MINI-BAG PLUS 50 ML IV SCH ×2 (05:17→11:01)
[2016-10-29 06:00] VITALS: BP 154/72
[2016-10-29 06:49] LABS: MEAN CORPUSCULAR HEMOGLOBIN 30.7 pg (27.0-33.0); MEAN CORPUSCULAR HGB CONC 33.2 g/dl (32.0-36.5); MEAN CORPUSCULAR VOLUME 92.6 fl (80.0-96.0); RED CELL DISTRIBUTION WIDTH 16.3 % (11.5-14.5)
[2016-10-29 06:56] LABS: CALCIUM LEVEL 8.8 MG/DL (8.8-10.2); CREATININE FOR GFR 2.03 MG/DL (0.70-1.30); GLOMERULAR FILTRATION RATE 35.2 (>49); POTASSIUM SERUM 3.7 MEQ/L (3.5-5.1)
[2016-10-29 07:34] LABS: INR 5.02
[2016-10-29] MEDS: WARFARIN SOD 2 MG TAB PO SCH (07:43)
[2016-10-29] MEDS: WARFARIN SOD 2.5 MG TAB PO SCH (07:44)
[2016-10-29] MEDS: HALOPERIDOL 5 MG TAB PO SCH (08:54)
[2016-10-29] MEDS: FLUCONAZOLE 100 MG TAB PO SCH ×2 (08:54→21:21)
[2016-10-29] MEDS: ATENOLOL 50 MG TAB PO SCH (08:54)
[2016-10-29] MEDS: CLOPIDOGREL 75 MG TAB PO SCH (08:54)
[2016-10-29] MEDS: MULTIVITAMINS/MINERALS THERAP 1 TAB PO SCH (08:54)
[2016-10-29] MEDS: DAKIN'S 0.25% HALF-STRENGTH SOLN 480 ML TOP SCH (08:54)
[2016-10-29] MEDS: SENOKOT S TAB PO SCH ×2 (08:55→21:20)
[2016-10-29] MEDS: ZIPRASIDONE 80 MG CAP (GEODON) PO SCH ×2 (08:55→21:20)
[2016-10-29] MEDS: LEVEMIR (INSULIN DETEMIR) 1 UNITS/0.01ML SC SCH (08:55)
[2016-10-29] MEDS: CLOTRIMAZOLE 1% TOPICAL CREAM 30GM TOP SCH ×2 (08:56→21:22)
[2016-10-29 14:00] VITALS: BP 144/65
[2016-10-29] MEDS: BENZTROPINE 0.5 MG TAB PO SCH (21:20)
[2016-10-29] MEDS: DOCUSATE SODIUM 100 MG CAP PO SCH (21:20)
[2016-10-29] MEDS: SIMVASTATIN 20 MG TAB PO SCH (21:20)
[2016-10-29 22:30] VITALS: BP 136/58
--- NOTE | 2016-10-29 22:37 | IPNPDOC ---
Date Seen The patient was seen on 10/29/16. Progress Note SUBJECTIVE: Patient is without complaints. OBJECTIVE PHYSICAL EXAMINATION: VITAL SIGNS: Please see below. GENERAL: Lying in bed in no apparent distress. HEENT: Normal CARDIOVASCULAR: Regular rate and rhythm. RESPIRATORY: Clear to auscultation bilaterally. ABDOMINAL: Soft nontender nondistended EXTREMITIES: Left lower extremity is perfused. The left femoral wounds are eleonora in size and healing well and showed good granulation tissue. The left fifth toe amputation site is showing signs of healing with some new granulation tissue and left cavernous exudate. The cellulitis in the left foot is resolved. NEUROLOGICAL: Awake alert oriented x3 with no focal deficits PSYCHOLOGICAL: Normal LABORATORY DATA: Please see below. MICROBIOLOGY: Please see below. DVT prophylaxis ordered?: Patient is therapeutic on Coumadin. ASSESSMENT AND PLAN: This is a 66-year-old white male with left lower extremity ischemia and a nonhealing fifth toe amputation site. The patient underwent left femoral endarterectomy for the non-healing fifth toe amputation site and postoperatively the patient developed breakdown of his left femoral incisions which required debridement and has been undergoing wound care since. The patient underwent a left lower extremity angiogram due to nonhealing of the left fifth toe amputation site. Angiogram showed severe superficial femoral and popliteal atherosclerotic arterial occlusive disease with occlusion of the superficial femoral artery. Patient also has chronic renal insufficiency. PROBLEMS: 1. chronic renal insufficiency: Abdomen is stable. 2. left lower extremity ischemia and nonhealing fifth toe amputation site: The wounds in the groin and left fifth toe amputation site are showing signs of healing. The patient will require revascularization of the left lower extremity if the wounds do not heal but at this point they are healing albeit slowly and we'll hold off on any intervention for the time being. The patient will be discharged with wound care and will followup in the office as an outpatient. If the wounds continue to be nonhealing in the left fifth toe amputation site the patient will require repeat angiogram with possible and plastic, stent and recanalization of the occluded superficial femoral artery. The cellulitis in the left lower extremity is resolved and the antibiotics will be DC'd today. DISPOSITION: Patient will be discharged once his INR is trending down and will do his wound care at home. VS, I&O, 24H, Fishbone Vital Signs/I&O Vital Signs Date Time Temp Pulse Resp B/P (MAP) Pulse Ox O2 Delivery O2 Flow Rate FiO2 8/11/17 14:00 97.5 65 20 144/65 (91) 98 Room Air I&O- Last 24 Hours up to 6 AM 10/29/16 06:00 Intake Total 3340 ml Output Total 1100 ml Balance 2240 ml Laboratory Data 24H LABS Laboratory Tests 2 10/29/16 05:58: Prothrombin Time 49.4H, Prothromb Time International Ratio 5.02*H, Anion Gap 10 , Glomerular Filtration Rate 35.2L, Blood Urea Nitrogen 30H, Creatinine 2.03H, Sodium Level 144, Potassium Level 3.7, Chloride Level 108H, Carbon Dioxide Level 26, Calcium Level 8.8 CBC/BMP Laboratory Tests 10/29/16 05:58 Red Blood Count 3.46 L, Mean Corpuscular Volume 92.6, Mean Corpuscular Hemoglobin 30.7, Mean Corpuscular Hemoglobin Concent 33.2, Red Cell Distribution Width 16.3 H, Calcium Level 8.8 Microbiology Microbiology 10/21/16 Gastrointestinal Tract Panel (PCR) - Final, Complete Eugene Jeffers MD Oct 29, 2016 22:37
[2016-10-30 05:52] LABS: MEAN CORPUSCULAR HEMOGLOBIN 30.8 pg (27.0-33.0); MEAN CORPUSCULAR HGB CONC 32.8 g/dl (32.0-36.5); MEAN CORPUSCULAR VOLUME 93.7 fl (80.0-96.0); RED CELL DISTRIBUTION WIDTH 16.2 % (11.5-14.5)
[2016-10-30 05:56] LABS: INR 3.99
[2016-10-30 06:00] VITALS: BP 142/62
[2016-10-30 06:06] LABS: CALCIUM LEVEL 8.3 MG/DL (8.8-10.2); CREATININE FOR GFR 1.98 MG/DL (0.70-1.30); GLOMERULAR FILTRATION RATE 36.2 (>49); POTASSIUM SERUM 3.6 MEQ/L (3.5-5.1)
[2016-10-30] MEDS: ZIPRASIDONE 80 MG CAP (GEODON) PO SCH ×2 (08:40→20:43)
[2016-10-30] MEDS: HALOPERIDOL 5 MG TAB PO SCH (08:40)
[2016-10-30] MEDS: CLOPIDOGREL 75 MG TAB PO SCH (08:41)
[2016-10-30] MEDS: SENOKOT S TAB PO SCH ×2 (08:41→20:43)
[2016-10-30] MEDS: FLUCONAZOLE 100 MG TAB PO SCH ×2 (08:41→20:42)
[2016-10-30] MEDS: MULTIVITAMINS/MINERALS THERAP 1 TAB PO SCH (08:42)
[2016-10-30] MEDS: ATENOLOL 50 MG TAB PO SCH (08:43)
[2016-10-30] MEDS: LEVEMIR (INSULIN DETEMIR) 1 UNITS/0.01ML SC SCH (08:44)
[2016-10-30] MEDS: CLOTRIMAZOLE 1% TOPICAL CREAM 30GM TOP SCH ×2 (08:45→20:44)
[2016-10-30] MEDS: DAKIN'S 0.25% HALF-STRENGTH SOLN 480 ML TOP SCH (08:45)
[2016-10-30 14:00] VITALS: BP 150/60
[2016-10-30] MEDS: WARFARIN SOD 2.5 MG TAB PO SCH (17:00)
[2016-10-30] MEDS: WARFARIN SOD 2 MG TAB PO SCH (17:00)
[2016-10-30] MEDS: DOCUSATE SODIUM 100 MG CAP PO SCH (20:42)
[2016-10-30] MEDS: SIMVASTATIN 20 MG TAB PO SCH (20:43)
[2016-10-30] MEDS: BENZTROPINE 0.5 MG TAB PO SCH (20:43)
[2016-10-30 22:00] VITALS: BP 162/70
--- NOTE | 2016-10-30 22:41 | IPNPDOC ---
Date Seen The patient was seen on 10/30/16. Progress Note SUBJECTIVE: Patient is without complaints OBJECTIVE PHYSICAL EXAMINATION: VITAL SIGNS: Please see below. GENERAL: Lying in bed comfortably HEENT: Normal CARDIOVASCULAR: Irregularly irregular. RESPIRATORY: Clear to auscultation bilaterally. ABDOMINAL: Soft nontender nondistended EXTREMITIES: Left lower extremities perfused well. Left femoral wounds are healing well. Left fifth toe amputation site shows some granulation. NEUROLOGICAL: Awake alert oriented x3 PSYCHOLOGICAL: Normal LABORATORY DATA: Please see below. MICROBIOLOGY: Please see below. DVT prophylaxis ordered?: Her clinical and Coumadin ASSESSMENT AND PLAN: This is a 66-year-old white male with atherosclerotic arterial occlusive disease in the left lower extremity. PROBLEMS: 1. left nonhealing fifth toe amputation site: Showing signs of granulation tissue albeit slow to heal. 2. left femoral wounds: Healing well with good granulation tissue. 3. left lower extremity arterial atherosclerotic occlusive disease: Patient may require integrating with possible angioplasty and stent if he continues to have nonhealing of the left fifth toe amputation site. DISPOSITION: Possible discharge Tuesday or Tuesday to home with home health care. VS, I&O, 24H, [facility] Vital Signs/I&O Vital Signs Date Time Temp Pulse Resp B/P (MAP) Pulse Ox O2 Delivery O2 Flow Rate FiO2 10/30/16 22:00 98.0 62 20 162/70 (100) 98 10/30/16 08:45 Room Air I&O- Last 24 Hours up to 6 AM 10/30/16 05:59 Intake Total 3840 ml Output Total 3600 ml Balance 240 ml Laboratory Data 24H LABS Laboratory Tests 2 10/30/16 05:32: Prothrombin Time 41.0H, Prothromb Time International Ratio 3.99, Anion Gap 8, Glomerular Filtration Rate 36.2L, Blood Urea Nitrogen 32H, Creatinine 1.98H, Sodium Level 143, Potassium Level 3.6, Chloride Level 109H, Carbon Dioxide Level 26, Calcium Level 8.3L CBC/BMP Laboratory Tests 10/30/16 05:32 Red Blood Count 3.39 L, Mean Corpuscular Volume 93.7, Mean Corpuscular Hemoglobin 30.8, Mean Corpuscular Hemoglobin Concent 32.8, Red Cell Distribution Width 16.2 H, Calcium Level 8.3 L Microbiology Microbiology 10/21/16 Gastrointestinal Tract Panel (PCR) - Final, Complete Eugene Jeffers MD Oct 30, 2016 22:41
[2016-10-31 05:58] LABS: BASO # 0.1 K/mm3 (0.0-0.2); BASO % 0.8 % (0.0-1.0); EOS # 0.3 K/mm3 (0.0-0.50); LARGE UNSTAINED CELL # 0.2 K/mm3 (0.0-0.4); LYMPH # 2.1 K/mm3 (1.5-4.5); LYMPH % 25.4 % (24.0-44.0); MEAN CORPUSCULAR HEMOGLOBIN 30.8 pg (27.0-33.0); MEAN CORPUSCULAR HGB CONC 32.8 g/dl (32.0-36.5); MONO # 0.5 K/mm3 (0.0-0.8); NEUTROPHILS # 4.7 K/mm3 (1.8-7.7); NEUTROPHILS % 60.8 % (36.0-66.0); PLATELET COUNT, AUTOMATED 221 k/mm3 (150-450); RED CELL DISTRIBUTION WIDTH 16.2 % (11.5-14.5); WHITE BLOOD COUNT 7.7 K/mm3 (4.0-10.0)
[2016-10-31 06:00] VITALS: BP 158/74
[2016-10-31 06:01] LABS: INR 2.99
[2016-10-31 06:16] LABS: CALCIUM LEVEL 8.3 MG/DL (8.8-10.2); CREATININE FOR GFR 1.87 MG/DL (0.70-1.30); GLOMERULAR FILTRATION RATE 38.6 (>49); POTASSIUM SERUM 3.8 MEQ/L (3.5-5.1)
[2016-10-31] MEDS: SENOKOT S TAB PO SCH ×2 (09:00→21:39)
[2016-10-31] MEDS: FLUCONAZOLE 100 MG TAB PO SCH ×2 (09:21→21:40)
[2016-10-31] MEDS: HALOPERIDOL 5 MG TAB PO SCH (09:21)
[2016-10-31] MEDS: MULTIVITAMINS/MINERALS THERAP 1 TAB PO SCH (09:22)
[2016-10-31] MEDS: ZIPRASIDONE 80 MG CAP (GEODON) PO SCH ×2 (09:22→21:39)
[2016-10-31] MEDS: CLOPIDOGREL 75 MG TAB PO SCH (09:22)
[2016-10-31] MEDS: ATENOLOL 50 MG TAB PO SCH (09:24)
[2016-10-31] MEDS: CLOTRIMAZOLE 1% TOPICAL CREAM 30GM TOP SCH ×2 (09:25→21:41)
[2016-10-31] MEDS: DAKIN'S 0.25% HALF-STRENGTH SOLN 480 ML TOP SCH (09:25)
[2016-10-31] MEDS: LEVEMIR (INSULIN DETEMIR) 1 UNITS/0.01ML SC SCH (09:25)
[2016-10-31 14:00] VITALS: BP 120/60
[2016-10-31] MEDS: WARFARIN SOD 2.5 MG TAB PO SCH (17:53)
[2016-10-31] MEDS: WARFARIN SOD 2 MG TAB PO SCH (17:53)
[2016-10-31] MEDS: BENZTROPINE 0.5 MG TAB PO SCH (21:39)
[2016-10-31] MEDS: DOCUSATE SODIUM 100 MG CAP PO SCH (21:39)
[2016-10-31] MEDS: SIMVASTATIN 20 MG TAB PO SCH (21:39)
[2016-10-31 22:00] VITALS: BP 154/79
[2016-11-01 06:00] VITALS: BP 130/80
[2016-11-01 09:36] VITALS: BP 130/80
[2016-11-01] MEDS: HALOPERIDOL 5 MG TAB PO SCH (09:36)
[2016-11-01] MEDS: ZIPRASIDONE 80 MG CAP (GEODON) PO SCH (09:36)
[2016-11-01] MEDS: FLUCONAZOLE 100 MG TAB PO SCH (09:36)
[2016-11-01] MEDS: SENOKOT S TAB PO SCH (09:36)
[2016-11-01] MEDS: MULTIVITAMINS/MINERALS THERAP 1 TAB PO SCH (09:36)
[2016-11-01] MEDS: CLOPIDOGREL 75 MG TAB PO SCH (09:36)
[2016-11-01] MEDS: ATENOLOL 50 MG TAB PO SCH (09:36)
[2016-11-01] MEDS: LEVEMIR (INSULIN DETEMIR) 1 UNITS/0.01ML SC SCH (09:37)
[2016-11-01] MEDS: ACETAMINOPHEN TAB 650MG DOSE (2X325MG) PO PRN (09:38)
[2016-11-01] MEDS: CLOTRIMAZOLE 1% TOPICAL CREAM 30GM TOP SCH (09:40)
[2016-11-01] MEDS: DAKIN'S 0.25% HALF-STRENGTH SOLN 480 ML TOP SCH (09:40)
[2016-11-01] MEDS ORDERED: DAKINSHS TOP (11:53)
[2016-11-01] MEDS ORDERED: FLUC10TA PO (11:53)
[2016-11-01] MEDS ORDERED: CLOTR1CR TOP (11:53)
[2016-11-01 14:00] VITALS: BP 135/83
--- NOTE | 2016-11-01 22:31 | IPNPDOC ---
Date Seen The patient was seen on 10/31/16. Progress Note SUBJECTIVE: Patient is without complaints OBJECTIVE PHYSICAL EXAMINATION: VITAL SIGNS: Please see below. GENERAL: Lying in bed with no apparent distress HEENT: Normal CARDIOVASCULAR: Irregularly irregular. RESPIRATORY: Clear to auscultation bilaterally. ABDOMINAL: Soft nontender nondistended EXTREMITIES: Well-perfused. Left femoral wounds are healing well. Left fifth toe amputation site is healing but slowly. No cellulitis or infection noted. NEUROLOGICAL: Awake, alert, oriented x3 with no focal deficits. PSYCHOLOGICAL: Normal LABORATORY DATA: Please see below. MICROBIOLOGY: Please see below. DVT prophylaxis ordered?: Patient is therapeutic on Coumadin ASSESSMENT AND PLAN: This is a 66-year-old white male with left lower extremity ischemia and nonhealing left fifth toe amputation site and breakdown of his left femoral incisions from his left femoral endarterectomy. PROBLEMS: 1. left fifth toe amputation site: Wound is healing well although slowly. 2. left femoral wounds: Healing well with good granulation tissue. DISPOSITION: Patient for possible discharge in a.m. 11/01/2016. VS, I&O, 24H, Fishbone Vital Signs/I&O Vital Signs Date Time Temp Pulse Resp B/P (MAP) Pulse Ox O2 Delivery O2 Flow Rate FiO2 11/01/16 14:00 97.2 70 18 135/83 (100) 96 Room Air I&O- Last 24 Hours up to 6 AM 11/01/16 06:00 Intake Total 2160 ml Output Total 3400 ml Balance -1240 ml Eugene Jeffers MD Nov 01, 2016 22:31
--- NOTE | 2016-11-01 22:40 | DS.PDOC ---
Discharge Summary General Date of Admission Oct 18, 2016 at 10:33 Date of Discharge 11/01/2016 Attending Physician: Eugene Jeffers MD Discharge Summary PROCEDURES PERFORMED DURING STAY: Left lower extremity angiogram. ADMITTING DIAGNOSES: 1. Left foot cellulitis. 2. nonhealing left fifth toe amputation site. 3. left femoral wound breakdown. DISCHARGE DIAGNOSES: 1. Left foot cellulitis. 2. nonhealing left fifth toe amputation site. 3. left femoral wound breakdown. COMPLICATIONS/CHIEF COMPLAINT: Cellulitis, left foot. HISTORY OF PRESENT ILLNESS: Patient is a 66-year-old male who was admitted with a nonhealing left fifth toe amputation site and cellulitis of the left foot. Patient had previously undergone a left femoral endarterectomy secondary to a nonhealing left fifth toe amputation site with gangrene and cellulitis. The patient had breakdown of the left femoral incisions for the femoral endarterectomy and was undergoing wound care with good healing of the wounds. Patient was seen in the office and noted to have cellulitis of left foot and worsening of the left fifth toe amputation site and was subsequently admitted to the hospital for IV antibiotic therapy as well as angiography of the left lower extremity. HOSPITAL COURSE: Patient was admitted and placed on IV antibiotic therapy which resulted in resolution of his cellulitis in his left foot. He underwent a left lower extremity angiogram showing severe arterial occlusive disease in the superficial femoral and popliteal arteries. Patient showed some improvement in his left fifth toe amputation site with granulation tissue formation with wet to dry dressings with Dakin solution. DISCHARGE MEDICATIONS: Please see below. ALLERGIES: Please see below. PHYSICAL EXAMINATION ON DISCHARGE: VITAL SIGNS: Please see below. GENERAL: Sitting in bed in comfortably HEENT: Normal NECK: Supple with no carotid bruits CARDIOVASCULAR EXAMINATION: Regular rate and rhythm RESPIRATORY EXAMINATION: Clear to auscultation bilaterally ABDOMINAL EXAMINATION: Soft nontender nondistended EXTREMITIES: Left lower extremity is well-perfused. Left fifth toe amputation site showing signs of healing with good granulation tissue formation and no residuals infection or cellulitis. Left femoral wounds are healing well and eleonora in size with good granulation tissue the skin surrounding the wounds is also healing well with much less excoriation and erythema. SKIN: Normal NEUROLOGICAL EXAMINATION: Awake alert oriented x3 PSYCHIATRIC EXAMINATION: Normal LABORATORY DATA: Please see below. PROGNOSIS: Good ACTIVITY: As tolerated. DIET: Low-fat low-cholesterol diet. DISCHARGE PLAN: Patient to follow up in my office in 3-5 days. DISPOSITION: 06 Home Health Service. DISCHARGE INSTRUCTIONS: 1. wet to dry dressing to the left fifth toe amputation site with Dakin solution once daily. 2. wet to dry dressing to the left femoral wounds with normal saline soaked gauze and covered with a large ABD to prevent moisture between the pannus and skin. 3. continue with cessation of tobacco use. ITEMS TO FOLLOWUP ON ON OUTPATIENT: 1. wounds. 2. diabetic control. 3. Coumadin therapy. DISCHARGE CONDITION: Stable. TIME SPENT ON DISCHARGE: Greater than 45 minutes. Vital Signs/I&Os Vital Signs Date Time Temp Pulse Resp B/P (MAP) Pulse Ox O2 Delivery O2 Flow Rate FiO2 11/01/16 14:00 97.2 70 18 135/83 (100) 96 Room Air I&O- Last 24 Hours up to 6 AM 11/01/16 06:00 Intake Total 2160 ml Output Total 3400 ml Balance -1240 ml Discharge Medications Scheduled Atenolol (Atenolol) 50 Mg Tab, 50 MG PO DAILY, (Reported) Benztropine Mesylate (Benztropine Mesylate) 0.5 Mg Tab, 0.5 MG PO QHS, (Reported ) Clopidogrel Bisulfate (Plavix) 75 Mg Tab, 75 MG PO DAILY, (Reported) Clotrimazole (Lotrimin) 1 Dose/30 Gm Cream, 0 DOSE TOP BID Docusate Sod/Senna (Senna S 8.6-50 mg) 1 Tab Tab, 1 TAB PO BID, (Reported) Docusate Sodium (Colace) 100 Mg Cap, 200 MG PO QHS, (Reported) Fluconazole (Fluconazole) 200 Mg Tab, 200 MG PO DAILY, (Reported) Fluconazole (Diflucan) 100 Mg Tab, 200 MG PO BID for RASH/ITCHING Fluticasone/Vilanterol (Breo Ellipta 100-25 Mcg/INH) 1 Inh Inh, 1 PUFF INH DAILY , (Reported) WAS NOT RECEIVING AN INPATIENT AT [facility] IN [place] Haloperidol (Haloperidol) 5 Mg Tab, 5 MG PO DAILY, (Reported) Insulin Glargine (Lantus) 1 Units/0.01 Ml Susp, 35 UNITS SC QAM, (Reported) Multivitamins *[facility] STOCKED* (Thera M Plus *[facility] STOCKED*) 1 Tab Tab, 1 TAB PO DAILY, (Reported) Simvastatin (Simvastatin) 20 Mg Tab, 20 MG PO QHS, (Reported) Sodium Hypochlorite (Hysept) 480 Ml Juhi, 1 ML TOP DAILY Trimethoprim/Sulfamethoxazole (Bactrim Ds 800-160 mg) 1 Tab Tab, 1 TAB PO BID, ( Reported) Warfarin Sod (Coumadin) 0.5 Mg Halftab, 0.5 MG PO QPM, (Reported) 4.5MG TOTAL DOSE Warfarin Sod (Warfarin Sodium) 4 Mg Tab, 4 MG PO QPM, (Reported) 4.5MG TOTAL DOSE Ziprasidone Hydrochloride (Ziprasidone HCl) 80 Mg Cap, 80 MG PO BID, (Reported) Scheduled PRN Acetaminophen (Acetaminophen) 325 Mg Tab, 650 MG PO Q4H PRN for PAIN, (Reported) Milk Of Magnesia (Milk of Magnesia) 1,200 Mg/15 Ml Jamilah, 30 ML PO DAILY PRN for CONSTIPATION, (Reported) Nitroglycerin (Nitrostat) 0.4 Mg Subl, 0.4 MG SL PRN PRN for CHEST PAIN, ( Reported) Allergies Coded Allergies: Bupivacaine (Verified Adverse Reaction, Severe, 06/26/12) INDUCES BRUGADA SYNDROME Eugene Jeffers MD Nov 01, 2016 22:40
--- NOTE | 2016-11-23 08:44 | REPKIM ---
DATE OF PROCEDURE: 10/26/2016 PREPROCEDURE DIAGNOSES: Chronic renal insufficiency, nonhealing left fifth toe amputation site, left femoral and popliteal atherosclerotic arterial occlusive disease. Venous valvular insufficiency in the left lower extremity status post right below knee amputation. POSTPROCEDURE DIAGNOSIS: PROCEDURE: SURGEON: Dr. Eugene Jeffers. BREEDER SERVICE TECHNICIAN: Cari Dunbar and Viry Torres, RT ANESTHESIA: Local with sedation with 0.5 mg of Versed, 25 mcg of Fentanyl and 10 mL of 2% lidocaine. ESTIMATED BLOOD LOSS: Minimal. IV FLUID: 100 mL, heparin none. FLUORO TIME: 6.7 minutes. CONTRAST: 12 mL of Isovue 300. SEDATION TIME: From 12:15 p.m. to 12:30 p.m. with the sedation administered by the RN in the room, the cardiopulmonary monitoring performed by the RN in the room and the entire procedure performed under my direct supervision and direction. COMPLICATIONS: None. DRAINS: None. SPECIMENS: None. IMPLANTS: Right common femoral arterial Mynx closure device. PROTAMINE: None. INDICATION: Patient is a 66-year-old male with a nonhealing left fifth toe amputation site who underwent a left femoral endarterectomy with patch angioplasty with improved flow to his left lower extremity. Patient had resolution of his rest pain and started showing signs of healing of his left fifth toe amputation site but this has started to show stagnation with nonhealing of the left fifth toe amputation site. Patient has known superficial femoral and popliteal atherosclerotic occlusive disease and the patient will undergo a left lower extremity angiogram with possible angioplasty and/or stent. Risks, benefits and alternative treatment options were discussed with the patient. Alternative treatment options including but were not limited to no intervention. Benefits included but were not limited to resolution of improved blood flow to the left lower extremity with healing of his wounds. Risks included but were not limited to infection, bleeding, renal failure requiring possible need for open surgical intervention, retroperitoneal hematoma, cerebrovascular accident, myocardial infarction, pulmonary embolus, deep venous thrombosis (DVT), loss of limb, loss of life and poor outcome. Patient's questions were answered. Patient voices understanding of these risks, benefits and alternative treatment options. Patient agrees to proceed with a left lower extremity angiogram with possible angioplasty and stent and accepts these associated risks. PROCEDURE: The patient was taken to the angiography suite and placed supine on the angiography room table and then prepped and draped in a standard surgical fashion. The time out was then performed by myself and the team members in the room confirming the correct patient, procedure and laterality. The right common femoral artery was then cannulated with a micropuncture needle after anesthetizing the overlying skin with 1% lidocaine. The micropuncture wire was advanced through the micropuncture needle which was upsized to a micropuncture sheath. A Benston wire was advanced through the micropuncture sheath which was upsized to a #5-Hungarian sheath. An Omniflush catheter was then brought up and over the bifurcation and placed in the left common femoral artery and a left lower extremity angiogram was performed. Catheter was pulled down to the bifurcation of the iliac arteries and an iliofemoral angiogram was performed. Catheter was then removed over a Benston wire and a Mynx closure device was used to close the arteriotomy in the right common femoral artery with an additional 10 minutes of adjunctive pressure applied for hemostasis. Dressings were then applied. Patient tolerated the procedure well. All instrument, sponge and needle counts were correct at the end of the case. There were no complications. Dr. Jeffers was present for and directed the entire case. Patient was transferred to the holding area and subsequently to the floor in stable condition. 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 The size of the aneurysm was difficult to assess but this was increased in size. The internal iliac artery was not visualized. The external iliac artery was patent down to the patch angioplasty of the common femoral, superficial femoral were widely patent. There was diffuse atherosclerotic arterial occlusive disease along the course of the superficial femoral artery with multiple areas of stenosis ranging in the order of 30-40%. The superficial femoral artery occluded at the adductor canal with reconstitution of the above knee popliteal artery via collaterals. There was three vessel runoff in the below knee region via the anterior tibial, posterior tibial and peroneal arteries. CONCLUSION: The patient underwent a left lower extremity angiogram showing occlusion of the superficial femoral artery distally with reconstitution of the above knee popliteal artery due to the iliac artery aneurysm. No intervention was performed as well as secondary to his chronic renal insufficiency. The patient will require a noncontrast CT scan to evaluate his iliac artery aneurysm and determine whether there is any requirement for repair of this aneurysm before performing an intervention in the superficial femoral and popliteal arteries.
== END 2016-11-01 14:21 | disposition home health service (06) | DRG 565 ==
LOC: M PCU 10:33 → M MSPAV 10:49 → M PCU 12:36 → M MSPAV 10-19 22:33
PROVIDERS: ADMIT Surgery Vascular Surgery; ATTEND Surgery Vascular Surgery
DX: T87.9 Unspecified complications of amputation stump (principal); L03.116 Cellulitis of left lower limb; B35.6 Tinea cruris; T81.4XXD Infection following a procedure, subsequent encounter; T81.31XD Disruption of external operation (surgical) wound, not elsewhere classified, subsequent encounter; I70.202 Unspecified atherosclerosis of native arteries of extremities, left leg; Z79.02 Long term (current) use of antithrombotics/antiplatelets; Z79.4 Long term (current) use of insulin; Z79.01 Long term (current) use of anticoagulants; Z79.899 Other long term (current) drug therapy; Z88.8 Allergy status to other drugs, medicaments and biological substances; Y82.9 Unspecified medical devices associated with adverse incidents

== ENCOUNTER 2016-12-12 17:36 | Inpatient (IN) | payer MEDICARE, MEDICAID ==
[~2016-12-12] VITALS: Ht 171.4 cm; Wt 100.7 kg
[~2016-12-12 17:36] MED LIST changes: +BACT800T5 PO; +CLOTR1CR TOP; +DAKINSHS TOP; +FLUC10TA PO; +FLUC200T2 PO; +SENN8.6T7 PO; +WARF-20 PO
[2016-12-12] MEDS ORDERED: NS 500 ML IV ONE (18:30)
[2016-12-12] MEDS ORDERED: ACETAMINOPHEN TAB 650MG DOSE (2X325MG) PO ONE (18:30)
[2016-12-12 18:41] LABS: BASO % 0.1 % (0.0-1.0); EOS # 0.2 K/mm3 (0.0-0.50); EOS % 1.3 % (0.0-3.0); LARGE UNSTAINED CELL # 0.1 K/mm3 (0.0-0.4); LARGE UNSTAINED CELL % 0.4 % (0.0-4.0); LYMPH # 0.4 K/mm3 (1.5-4.5); LYMPH % 2.4 % (24.0-44.0); MEAN CORPUSCULAR HEMOGLOBIN 30.8 pg (27.0-33.0); MEAN CORPUSCULAR HGB CONC 33.9 g/dl (32.0-36.5); MEAN CORPUSCULAR VOLUME 90.8 fl (80.0-96.0); MONO # 0.4 K/mm3 (0.0-0.8); MONO % 2.5 % (0.0-5.0); NEUTROPHILS # 15.8 K/mm3 (1.8-7.7); NEUTROPHILS % 93.3 % (36.0-66.0); PLATELET COUNT, AUTOMATED 289 k/mm3 (150-450); RED CELL DISTRIBUTION WIDTH 13.9 % (11.5-14.5); WHITE BLOOD COUNT 16.9 K/mm3 (4.0-10.0)
[2016-12-12 18:50] LABS: INR 1.4
[2016-12-12 19:11] LABS: ERYTHROCYTE SEDIMENTATION RATE 118 mm/hr (0-20)
[2016-12-12 19:14] LABS: ALBUMIN/GLOBULIN RATIO 0.38 (1.00-1.93); ALKALINE PHOSPHATASE 85 U/L (45-117); ALT/SGPT 104 U/L (12-78); ANION GAP 12 MEQ/L (8-16); AST/SGOT 416 U/L (15-37); BILIRUBIN,DIRECT < 0.1 MG/DL (0.0-0.2); BILIRUBIN,TOTAL 0.3 MG/DL (0.2-1.0); BLOOD UREA NITROGEN 50 MG/DL (7-18); CALCIUM LEVEL 9.2 MG/DL (8.8-10.2); CARBON DIOXIDE LEVEL 24 MEQ/L (21-32); CHLORIDE LEVEL 100 MEQ/L (98-107); CREATININE FOR GFR 2.93 MG/DL (0.70-1.30); GLUCOSE, FASTING 165 MG/DL (80-110); POTASSIUM SERUM 4.2 MEQ/L (3.5-5.1); SODIUM LEVEL 136 MEQ/L (136-145); TOTAL PROTEIN 7.3 GM/DL (6.4-8.2)
[2016-12-12] MEDS ORDERED: WARF-21 PO (19:54)
[2016-12-12] MEDS ORDERED: CLOTR1CR TOP (19:56)
[2016-12-12] MEDS ORDERED: CEFEPIME HCL 1 GM in D5W MINI-BAG PLUS 50 ML IV ONE (20:00)
--- NOTE | 2016-12-12 20:00 | REPUSA ---
Clinical history: Pain, swelling. Findings: The left common femoral vein was not well visualized because of bandaging over this region. The superficial femoral, popliteal, and other deep venous structures compress normally and demonstra te normal color Doppler flow. Normal venous waveforms with augmentation are seen. Impression: No evidence of deep vein thrombosis in the left femoral popliteal venous system. Limited evaluation o f the common femoral vein.
[2016-12-12] MEDS ORDERED: NS 1,000 ML IV SCH (20:30)
[2016-12-12] MEDS: SYMBICORT 80/4.5MCG INHALER 6GM INH SCH (21:00)
[2016-12-12] MEDS ORDERED: VANCOMYCIN HCL 1,000 MG, VIAL MATE ADAPTER 1 EACH in D5W 250 ML IV ONE (21:00)
[2016-12-12] MEDS: ZIPRASIDONE 80 MG CAP (GEODON) PO SCH (21:00)
[2016-12-12] MEDS ORDERED: SIMVASTATIN 20 MG TAB PO SCH (21:00)
[2016-12-12] MEDS ORDERED: WARFARIN SOD 5 MG TAB PO ONE (21:00)
[2016-12-12] MEDS ORDERED: GLUCOSE 4 GM CHEW TABLET PO PRN (21:45)
[2016-12-12] MEDS ORDERED: DEXTROSE 50% 50 ML SYRINGE IV PRN (21:45)
[2016-12-12] MEDS ORDERED: GLUCAGON FOR INJ 1 MG VIAL (J1610) SC PRN (21:45)
[2016-12-12 22:27] VITALS: BP 124/60
--- NOTE | 2016-12-12 23:19 | HPE ---
DATE OF ADMISSION: 12/12/2016 PRIMARY CARE PROVIDER: Alok Casey. CHIEF COMPLAINT: Patient brought in by emergency medical services (EMS) after a fall, and as per them, the patient was not acting himself. The patient was noted to be disheveled, dirty and unkempt. PAST MEDICAL HISTORY: 1. Peripheral vascular disease with right above-knee amputation. 2. Chronic left fifth toe nonhealing amputation site. 3. Left femoral wound breakdown which appears to be healing. 4. Chronic obstructive pulmonary disease (COPD). 5. Obesity. 6. Diabetes. 7. Diabetic neuropathy. 8. Hypertension. 9. Hyperlipidemia. 10. History of osteomyelitis of the left fifth toe with gangrene of the same area. 11. Chronic kidney disease (CKD). 12. He has a right leg prosthesis but it does not fit. 13. Coronary artery disease with myocardial infarction (GA) in 2016, followed by cardiac catheterization and stents. 14. History of deep venous thrombosis (DVT) on Coumadin. 15. Schizoaffective disorder. 16. History of previous cranial surgery secondary to trauma. HISTORY OF PRESENT ILLNESS: This is a 66-year-old male who has been in and out of the hospital since June of 2016, related to left leg issues. Originally he was admitted for nonhealing diabetic foot ulcer and gangrene of his left fifth toe. For that he had undergone incision and drainage and was found to have osteomyelitis of the right fifth toe. He was treated with antibiotics. At that time he was admitted in the hospital, and then he was admitted in the hospital in July 2016. The patient was seen by Dr. Jeffers and had undergone angiogram and found to have poor circulation of the left lower extremity. The patient underwent left common femoral artery endarterectomy, left superficial femoral endarterectomy, left profunda femoris artery endarterectomy with patch angioplasty, and repair of left common femoral artery pseudoaneurysm with evacuation of hematoma on 08/12/2016. He underwent again debridement and excision of nonviable skin and subcutaneous tissue, muscle and bone of his left fifth toe prior amputation site on 08/20/2016. At that time, he was in the hospital from July 31, 2016, to August 23, 2016. He was then discharged to [facility]; however, there he developed left groin wound surgical site drainage and he was readmitted to the hospital on 09/14/2016, under Dr. Jeffers's service. He underwent left groin wound excision and debridement of skin and subcutaneous tissue, fat and muscle, and had a left inguinal wound vacuum-assisted closure (VAC) placement. He again underwent debridement of his left fifth toe amputation site on 09/24/2016. Subsequently he was discharged home on 11/01/2016. Since then, he has been home and was having home healthcare and visiting nurse services. He had received several courses of antibiotics. He, however, has been doing poorly with his activities of daily living (ADLs) and taking care of himself. He had a fall yesterday, and he was down on the floor for two hours, as his phone and Life-Alert button were not within his reach, and he had to drag himself to reach it. He again had a fall today, but this time he had his phone within reach and was able to call emergency medical services (EMS) immediately. EMS felt that he was not acting his own self. He was found to be very dirty, unkempt, with dirt in his left toe nonhealing wound, as well as his groin was felt to be red and infected so was brought to the emergency room. In the emergency department (ED), the patient was found to be febrile with a temperature maximum (T-max) of 103. His lab tests were significant for white blood cell count of 16.9, erythrocyte sedimentation rate (ESR) of 118, C-reactive protein (CRP) of 23, and aspartate transaminase (AST) elevated to 416, alanine transaminase (ALT) 804. He also had an x-ray of the left foot then which showed that he may be having osteomyelitis of the left fourth toe. He was seen by Dr. Jeffers in the emergency room, and it was felt that his groin wound was healing nicely. In view of his fever, elevated white count and inflammatory markers, he is being admitted to the hospitalist service for possible osteomyelitis of the left fourth toe, as well as chronic infection of the left fifth toe amputation site. The patient was also noted to have an area of redness on his left thigh, as well as a bruise and area of redness on his right lower anterior chest wall which he thinks are because he had this recent fall before today when he had been lying on the floor for two hours, and also on that day before he fell to the floor, he was lying in a crooked manner on his wheelchair and hand guards of the wheelchair were pressing into his chest. PAST SURGICAL HISTORY: 1. Right above-knee amputation in 2001. 2. Cardiac stents in 2016. 3. History of spinal infection. 4. Left fifth toe amputation with multiple debridements and removal of bones. 5. Left femoral endarterectomy, common femoral as well as superficial femoral, left profunda femoris artery endarterectomy with patch angioplasty. 6. Left common femoral artery pseudoaneurysm repair and evacuation of hematoma. ALLERGIES: BUPIVACAINE. HOME MEDICATIONS: - acetaminophen 650 mg every four hours as needed for pain - atenolol 50 mg by mouth daily - benztropine 0.5 mg at bedtime - clopidogrel 75 mg by mouth daily - Lotrimin one dose topically twice a day - Colace 200 mg at bedtime - fluticasone vilanterol Breo Ellipta 100/25 one puff inhalation daily - haloperidol 5 mg by mouth daily - Lantus insulin 35 units daily - milk of magnesia 30 mL by mouth daily as needed for constipation - nitroglycerin 0.4 mg sublingual as needed - simvastatin 20 mg at bedtime - Coumadin 7.5 mg by mouth daily - ziprasidone 80 mg by mouth twice a day SOCIAL HISTORY: The patient is a smoker. Smokes at least one pack per day. Does not abuse alcohol or recreational drugs. FAMILY HISTORY: Nothing significant. REVIEW OF SYSTEMS: The patient denies any chest pain or cough. Denies any shortness of breath. Denies any abdominal pain, nausea, vomiting or diarrhea. The patient does say that he has been feeling a little warm at home and sweaty sometimes. The patient complains of pain in his right lower chest where he says he had been leaning on his chair for hours because he could not correct his position in the wheelchair as he was weak. He complains of overall generalized weakness and unable to perform all his day-to-day activities as he used to do before. He also has not been able to put on his left prosthesis as it does not fit. The patient also has been having difficulty in transferring from bed to chair because of weakness. PHYSICAL EXAMINATION: VITAL SIGNS: Temperature T-max of 103, decreased to 100.9, pulse 82, respiratory rate 20, blood pressure 131/63, pulse oximetry 94% on room air. GENERAL: Patient awake, alert, and oriented times three. Lying down in bed in no acute distress. HEENT: Normocephalic, atraumatic. Moist mucous membranes. Anicteric eyes. CHEST: Bilateral diffuse wheezing present. CARDIOVASCULAR: S1, S2 regular. No rub, murmur or gallop. ABDOMEN: Obese, soft, nontender. Bowel sounds present. On the right upper quadrant and the lower chest wall, there is an area of tenderness which has some bruising present. EXTREMITIES: On the right, there is above-knee amputation. On the left leg, there is a healing groin surgical wound with some discharge. There is an area of erythema on the left thigh. Also, there is left nonhealing open wound of the fifth toe amputation site which appears to be dirty. GENERAL APPEARANCE: The patient appears to be disheveled with poor personal hygiene and poor self care. LABORATORY DATA: WBC 16.9, hemoglobin 12.7, platelets 289. ESR 118. Sodium 136, potassium 4.2, chloride 100, bicarbonate 24, BUN 50, creatinine 2.9. Glucose 165, lactate 1.6, calcium 9.2. AST 416, ALT 104, total bilirubin 0.3, alkaline phosphatase 85. CRP 23, albumin two. INR 1.4. UA clean. IMAGING: Lower extremity DVT scan of the left is negative. ASSESSMENT AND PLAN: This is a 66-year-old male admitted for possible left fourth toe osteomyelitis and infected left fifth toe amputation site and possible groin site. PLAN: 1. For infected left fifth toe amputation and possible left fourth osteomyelitis, we will start the patient on vancomycin and cefepime. Dr. Jeffers has already been consulted. 2. Left groin wound, chronic with chronic drainage seems to be healing at this point. 3. Left thigh erythema and right lower chest wall erythema and bruising. This is most probably related to fall. We will continue to monitor these areas. 4. Elevated transaminases. We will check creatine phosphokinase (CPK). The patient may have some underlying rhabdomyolysis because of recent fall and being down for a few hours. 5. Diabetes. We will continue with Levemir and sliding scale insulin. 6. Coronary artery disease with history of myocardial infarction (GA) and stenting. We will continue with statin, beta ila and Plavix. 7. Peripheral arterial disease. We will continue with Plavix. Dr. Jeffers will be following the patient. 8. History of deep venous thrombosis (DVT). We will continue with Coumadin. International normalized ratio (INR) is subtherapeutic at this point. Will increase to 10 mg. 9. Chronic obstructive pulmonary disease (COPD). The patient continues to smoke. We will place the patient on albuterol ipratropium nebulizer as well as start the patient on Symbicort. 10. Grade 2 diastolic dysfunction. The patient does not seem to have fluid overload at this point, but we will continue to monitor for heart failure. 11. Schizoaffective disorder. We will continue with home medication. 12. Hypertension. We will continue with atenolol. 13. Hyperlipidemia. We will continue with simvastatin. 14. Social situation. The patient lives alone and has help only three times a week. It seems that the patient has not been able to adequately perform his activities of daily living (ADLs) as he appears very unkempt and his leg wound appears to be soiled. We will consult patient and family services (PFS). Patient may need retirement placement at this point. 15. Deep venous thrombosis (DVT) prophylaxis: The patient is on Coumadin.
[2016-12-12] MEDS: SENOKOT S TAB PO SCH (23:22)
[2016-12-13] MEDS ORDERED: VANCOMYCIN HCL 1,000 MG, VIAL MATE ADAPTER 1 EACH in D5W 250 ML IV ONE ×3
[2016-12-13] MEDS: ACETAMINOPHEN 500 MG TAB PO PRN ×2 (00:51→11:39)
[2016-12-13] MEDS: BENZTROPINE 0.5 MG TAB PO SCH ×2 (00:51→20:37)
--- NOTE | 2016-12-13 01:29 | PHACANCOPD ---
PHARMACY VANCOMYCIN DOSING Pt Demographics Demographics Patient Age:66 , Weight:97.100 , Gender: male Adjusted Body Weight Date: 12/13/16, Adjusted Body Weight: [79.19] Kg Events Past 24 Hours Events Past 24 Hours: YES: Fever, Elevation in WBC, Pending Diagnostics Vancomycin Vancomycin indication: SEPSIS Vancomycin Target Ranges: 15-20 mcg/ml Vancomycin Load Y/N: Yes Load Dose Date Time Vancomycin Load Dose: 2g Date: 12/12/16 Time: 2300 Vancomycin Dose Date: 12/13/16. Current Vancomycin Dose: [1g IV Q24H] Intermittent Dosing?: No Labs Labs Item Value Date Time White Blood Count 16.9 K/mm3 H 12/12/16 182 Erythrocyte Sedimentation Rate 118 mm/hr H 12/12/161826 Blood Urea Nitrogen 50 MG/DL H 12/12/161826 Creatinine 2.93 MG/DL H 12/12/161826 C-Reactive Protein, Quantitative 23.10 MG/DL H 12/12/161826 Micro Microbiology 12/12/16 Blood Culture, Received Pending 12/12/16 Blood Culture, Received Pending 12/12/16 Wound Culture, Received Pending 12/12/16 Gram Stain, Received Pending 12/12/16 Wound Culture, Received Pending Creatinine Clearance Date:12/13/16. Estimated Creatinine Clearance: [~24ml/min]. Pending Labs Vancomycin trough scheduled 12/14/16, prior to the 3rd dose Assessment and Plan Maintaining Current Dose?: Yes Reason for dose change: No Dose Change Pharmacist Note Pharmacist Note Date: 12/13/16. Pharmacist note: Day #1 empiric vancomycin tx initiated with a 2g loading dosing, followed by a maintenance regimen of 1g IV Q24H for the treatment of sepsis/possible left 4th toe osteomyelitis, infected left 5th toe amputation site, and groin site - aiming for a goal trough of 15-20mcg/ml. The patient has a PMH of PVD with a right AKA, a chronic left 5th toe nonhealing amputation site, a left femoral wound breakdown, and a hx of osteomyelitis of the left 5th toe w/gangrene. WBC, ESR, and CRP are currently elevated, and the patient is febrile. The patient does have a hx of MRSA in a left leg wound back in October of 2011, as well as a hx of vanco use here at [facility]. Blood and wound cultures are currently pending. A vancomycin trough has been scheduled to be drawn 12/14/16 @2000, prior to the 3rd dose. We will continue to monitor and make adjustments as needed. [facility] Dec 13, 2016 01:29
[2016-12-13 06:00] VITALS: BP 122/61
[2016-12-13 06:07] LABS: BASO % 0.1 % (0.0-1.0); EOS # 0.1 K/mm3 (0.0-0.50); EOS % 0.9 % (0.0-3.0); LARGE UNSTAINED CELL # 0.1 K/mm3 (0.0-0.4); LARGE UNSTAINED CELL % 0.8 % (0.0-4.0); LYMPH # 0.8 K/mm3 (1.5-4.5); LYMPH % 7.8 % (24.0-44.0); MEAN CORPUSCULAR HEMOGLOBIN 31.1 pg (27.0-33.0); MEAN CORPUSCULAR VOLUME 91.5 fl (80.0-96.0); MONO # 0.6 K/mm3 (0.0-0.8); MONO % 5.6 % (0.0-5.0); NEUTROPHILS # 9.1 K/mm3 (1.8-7.7); NEUTROPHILS % 84.8 % (36.0-66.0); PLATELET COUNT, AUTOMATED 240 k/mm3 (150-450); RED CELL DISTRIBUTION WIDTH 14.1 % (11.5-14.5); WHITE BLOOD COUNT 10.7 K/mm3 (4.0-10.0)
[2016-12-13 06:12] LABS: INR 1.48
[2016-12-13 06:20] LABS: CALCIUM LEVEL 8.3 MG/DL (8.8-10.2); CREATININE FOR GFR 2.69 MG/DL (0.70-1.30); GLOMERULAR FILTRATION RATE 25.4 (>49); POTASSIUM SERUM 3.3 MEQ/L (3.5-5.1)
[2016-12-13] MEDS: NS 1,000 ML IV SCH ×3 (06:38→19:42)
--- NOTE | 2016-12-13 07:20 | REP ---
LEFT FOOT SERIES: Four views of the left foot performed. There is evidence of prior amputation at the level of the mid fifth metatarsal. There is osseous destruction and ill-defined low density involving the distal end of the fourth metatarsal and base of fourth proximal phalanx. Findings are consistent with osteomyelitis. There is an adjacent soft tissue ulcer. Diffuse vascular calcifications are present. Signed by Prabhu Aguilar MD 12/13/2016 05:28 P
[2016-12-13] MEDS: IPRATROPIUM 0.5MG/ALBUTEROL 2.5MG INH SOL UD 3ML (DUONEB)(J7620) NEB SCH ×4 (08:00→23:38)
[2016-12-13] MEDS: SYMBICORT 80/4.5MCG INHALER 6GM INH SCH ×2 (08:42→21:08)
[2016-12-13] MEDS: LEVEMIR (INSULIN DETEMIR) 1 UNITS/0.01ML SC SCH (08:53)
[2016-12-13] MEDS: ATENOLOL 50 MG TAB PO SCH (08:53)
[2016-12-13] MEDS: ZIPRASIDONE 80 MG CAP (GEODON) PO SCH ×2 (08:53→20:37)
[2016-12-13] MEDS: SENOKOT S TAB PO SCH ×2 (08:53→20:37)
[2016-12-13] MEDS: CLOPIDOGREL 75 MG TAB PO SCH (08:53)
[2016-12-13] MEDS: HumaLOG INSULIN (NovoLOG) PER UNIT SC SCH ×4 (08:54→21:00)
[2016-12-13] MEDS: HALOPERIDOL 5 MG TAB PO SCH (08:59)
[2016-12-13] MEDS ORDERED: POTASSIUM CHLORIDE 10 MEQ SR TABLET PO ONE (09:00)
[2016-12-13 14:00] VITALS: BP 149/70
[2016-12-13] MEDS: NYSTATIN 100,000 UNITS/GM TOPICAL PWD 15 GM TOP SCH ×2 (15:00→20:37)
--- NOTE | 2016-12-13 15:49 | IPNPDOC ---
Text Note Date of Service The patient was seen on 12/13/16. NOTE Subjective: States he feels well. He is eating breakfast. Objective: Vitals: (see below) General: No acute distress, laying comfortably in bed. HEENT: Moist mucous membranes. Neck: No JVD or lymphadenopathy Cardiac: RRR, No murmurs Pulm: Clear to auscultation b/l. No wheezing, rhonchi Abd: NT/ND + BS. Obese. Ext: Right BKA. LLE with foot ulcer. Also has cellulitis of the lateral thigh. No abscess. Trace LE edema. No cyanosis. Distal pulse intact. Left 5th great toe ulcer. Labs (see below) Images: Doppler U/s 12/13/16 Impression: No evidence of deep vein thrombosis in the left femoral popliteal venous system. Limited evaluation of the common femoral vein. Foot x ray 12/13/16 Four views of the left foot performed. There is evidence of prior amputation at the level of the mid fifth metatarsal. There is osseous destruction and ill-defined low density involving the distal end of the fourth metatarsal and base of fourth proximal phalanx. Findings are consistent with osteomyelitis. There is an adjacent soft tissue ulcer. Diffuse vascular calcifications are present. Assessment/Plan 1. Sepsis 2/2 Cellulitis and Osteomyelitis - On Vanc/Cefepime. Bld cx pending. Dr. Jeffers consulted. May need amputation for osteo. 2. Chronic left groin wound with chronnic drainage - healing 3. Rhabdomyolysis - CK trending down. On IVF. s/p fall 4. Transaminitis - likely 2/2 sepsis. will cont to monitor 5. Acute renal failure. H/o CKD baseline Cr 1.9. On IVF. Improving. Cont to monitor 6. DM - on levemir and SSI 7. PAD on plavix. Dr. Jeffers on consult 8. H/o DVT on coumadin 9./ Bruising of left thigh and chest 2/2 fall. Cont to monitor. No hematoma. 10. COPD- cont nebs 11. H/o grade 2 diastolic dysfunction - compensated. 12. Schizophrenia - cont home meds 13. HTN -controlled 14. HLD - on statin PFS consulted to assist with safe d/c. Prognosis Guarded. DVT prophy: On coumadin VS,Fishbone, I+O VS, Fishbone, I+O Laboratory Tests 12/12/16 18:27 Red Blood Count 4.12 L, Mean Corpuscular Volume 90.8, Mean Corpuscular Hemoglobin 30.8, Mean Corpuscular Hemoglobin Concent 33.9, Red Cell Distribution Width 13.9, Neutrophils (%) (Auto) 93.3 H, Lymphocytes (%) (Auto) 2.4 L, Monocytes (%) (Auto) 2.5, Eosinophils (%) (Auto) 1.3, Basophils (%) (Auto ) 0.1, Neutrophils # (Auto) 15.8 H, Lymphocytes # (Auto) 0.4 L, Monocytes # ( Auto) 0.4, Eosinophils # (Auto) 0.2, Basophils # (Auto) 0.0 12/13/16 05:42 Red Blood Count 3.27 L, Mean Corpuscular Volume 91.5, Mean Corpuscular Hemoglobin 31.1, Mean Corpuscular Hemoglobin Concent 34.0, Red Cell Distribution Width 14.1, Neutrophils (%) (Auto) 84.8 H, Lymphocytes (%) (Auto) 7.8 L, Monocytes (%) (Auto) 5.6 H, Eosinophils (%) (Auto) 0.9, Basophils (%) ( Auto) 0.1, Neutrophils # (Auto) 9.1 H, Lymphocytes # (Auto) 0.8 L, Monocytes # ( Auto) 0.6, Eosinophils # (Auto) 0.1, Basophils # (Auto) 0.0, Calcium Level 8.3 L Vital Signs Date Time Temp Pulse Resp B/P (MAP) Pulse Ox O2 Delivery O2 Flow Rate FiO2 12/13/16 14:00 97.5 58 118 149/70 (96) 97 Room Air I&O- Last 24 Hours up to 6 AM 12/14/16 06:00 Intake Total 950 ml Output Total 1075 ml Balance -125 ml TEMI ARSHAD MD Dec 13, 2016 15:49
[2016-12-13] MEDS: WARFARIN SOD 5 MG TAB PO SCH (17:16)
[2016-12-13] MEDS: CEFEPIME HCL 1 GM in D5W MINI-BAG PLUS 50 ML IV SCH (19:42)
[2016-12-13] MEDS: VANCOMYCIN HCL 1,000 MG, VIAL MATE ADAPTER 1 EACH in D5W 250 ML IV SCH (20:38)
[2016-12-13 22:00] VITALS: BP 154/69
[2016-12-14 06:00] VITALS: BP 159/76
[2016-12-14 06:25] LABS: BASO # 0.1 10^3/uL (0.0-0.2); BASO % 0.7 % (0.0-1.0); EOS # 0.2 10^3/uL (0.0-0.50); EOS % 2.5 % (0.0-3.0); IMMATURE GRANULOCYTE % 1.1 % (0-0); LYMPH # 0.7 10^3/uL (1.5-4.5); LYMPH % 7.6 % (24.0-44.0); MEAN CORPUSCULAR HEMOGLOBIN 30.3 pg (27.0-33.0); MEAN CORPUSCULAR HGB CONC 31.9 g/dl (32.0-36.5); MEAN CORPUSCULAR VOLUME 95.2 fl (80.0-96.0); MONO # 0.7 10^3/uL (0.0-0.8); MONO % 8.1 % (0.0-5.0); NEUTROPHILS # 7.2 10^3/uL (1.8-7.7); PLATELET COUNT, AUTOMATED 195 10^3/uL (150-450); RED CELL DISTRIBUTION WIDTH 14.3 % (11.5-14.5)
[2016-12-14 06:47] LABS: INR 1.83
[2016-12-14 06:53] LABS: CREATININE FOR GFR 2.09 MG/DL (0.70-1.30); POTASSIUM SERUM 3.8 MEQ/L (3.5-5.1)
[2016-12-14] MEDS: HumaLOG INSULIN (NovoLOG) PER UNIT SC SCH ×4 (07:30→21:00)
[2016-12-14] MEDS: IPRATROPIUM 0.5MG/ALBUTEROL 2.5MG INH SOL UD 3ML (DUONEB)(J7620) NEB SCH ×3 (08:00→22:44)
[2016-12-14] MEDS: SYMBICORT 80/4.5MCG INHALER 6GM INH SCH ×2 (08:24→21:10)
[2016-12-14] MEDS: LEVEMIR (INSULIN DETEMIR) 1 UNITS/0.01ML SC SCH (09:00)
[2016-12-14] MEDS ORDERED: PREVNAR 13 VACCINE SYRINGE (CPT CODE:90670) IM ONE (09:00)
[2016-12-14] MEDS: ATENOLOL 50 MG TAB PO SCH (09:02)
[2016-12-14] MEDS: ZIPRASIDONE 80 MG CAP (GEODON) PO SCH ×2 (09:02→21:42)
[2016-12-14] MEDS: CLOPIDOGREL 75 MG TAB PO SCH (09:02)
[2016-12-14] MEDS: NYSTATIN 100,000 UNITS/GM TOPICAL PWD 15 GM TOP SCH ×2 (09:02→21:00)
[2016-12-14] MEDS: SENOKOT S TAB PO SCH ×2 (09:05→21:42)
[2016-12-14] MEDS: HALOPERIDOL 5 MG TAB PO SCH (09:43)
--- NOTE | 2016-12-14 10:08 | REP ---
REASON FOR EXAM: Left iliac artery aneurysm. Comparison exam: None. The examination was performed without intravenous contrast administration which extremely limits the exam particularly when assessing the aorta and iliac arteries. The lung bases are essentially clear. Limited evaluation of the solid intra-abdominal organs show no gross abnormalities. There is an abnormal caudate to left lobe of the liver ratio heavily favoring the left lobe. There are choleliths. Limited evaluation of the pancreas and adrenal glands show no gross abnormalities. Limited evaluation of the kidneys show multiple low density round left renal lesions, the largest of which measures 2.1 cm and is seen arising from the interpolar region of the left kidney anterior cortex and having water Hounsfield unit readings. The other low density lesions are too small for CT characterization. There is a tiny 2 mm size nonobstructing left nephrolith. Limited evaluation of the bowel loops and their mesenteries show no gross abnormalities. There is no evidence of free fluid or free air. There is calcific atherosclerotic change seen in the abdominal aorta. CT PELVIS: Approximately 3-4 cm distal to the aortoiliac bifurcation, there is a left common iliac arterial aneurysm which is fusiform in shape and measures approximately 4 cm in its AP dimension. There is also bilateral internal iliac arterial ectasia. Heavy calcific atherosclerotic change is seen in the iliac arteries. The pelvic bowel loops and their mesenteries are within normal limits. There is no evidence of a mass or adenopathy. There is no evidence of free fluid or free air. Bone window technique throughout the exam shows spinal and hip degenerative changes. IMPRESSION: 1. Exam limitations as described above. 2. Left common iliac artery aneurysm and iliac arterial ectasia as described above. 3. Left renal cyst and other left renal findings as described above. 4. Abnormal caudate to left lobe of the liver ratio which could be an indication of cirrhosis. This needs to be correlated clinically with appropriate followup. 5. Cholelithiasis. Signed by Harman Mata DO 12/14/2016 04:53 P
--- NOTE | 2016-12-14 13:37 | IPNPDOC ---
Text Note Date of Service The patient was seen on 12/14/16. NOTE Subjective: Patient is a 66 year old male with a PMHx of PVD (s/p R AKA), Chronic L 5th toe amputation 2/2 Osteomyelitis (non-healing), L femoral wound breakdown , COPD, DM2, HTN, DLP, CAD s/p stent (Hx of [place] 2005), DVT on Coumadin, Schizoaffective disorder, Hx of Cranial Surgery 2/2 Trauma, and Neuropathy who presented to the ER with complaint of AMS and falls. He was admitted for infection of left 5th toe amputation and possible left 4th toe osteomyelitis. Dr. Jeffers has been consulted for evaluation and management. Patient was seen and examined at the bedside. Objective: Vitals (See below) General: Lying in bed, no acute distress, comfortable HEENT: NC, AT CVS: RRR, +S1S2 Lungs: Fair air entry b/l, -w/r/r Abdomen: Soft, ND, NT Extremities: R AKA, - Edema, - Calf tenderness, Erythema on left thigh, LLE with non-healing ulcers Assessment and plan: Sepsis 2/2 Cellulitis of left thigh and foot and Osteomyelitis of left foot - Presented with some confusion and weakness, non-healing ulcers on left foot - Physical with non-healing ulcers on foot, abnormal odor, erythema and drainage - Labs with leukocytosis - improving, No lactic acidosis - XR L foot 12/13: 5th mid metatarasal amputation, distal fourth metatarsal / base of 4th proximal phalanx - osteomyelitis; vascular calcifications - Doppler US 12/13: Negative for DVT - c/w Cefepime and Vancomycin (Day #2) - Dr. Jeffers (Vascular surgery) on case; will likely need L iliac aneurysm repair and L femoral bypass, possible amputation Rhabdomyolysis - CK levels elevated at ~20K - c/w IV fluid hydration with NS Acute on Chronic kidney disease - likely 2/2 pre-renal etiology, possibly intra- renal - Cr on admission of 2.93; currently trending down at 2.09; appears to be trending toward baseline (Cr 1.9) - c/w IV fluid hydration s/p Hypokalemia - s/p supplementation Chronic left groin wound with drainage - Healing - c/w wound care Transaminitis - possibly 2/2 sepsis - Hold Simvastatin - will f/u AM CMP IDDM2 - c/w ISS and Levemir PAD - c/w Plavix Hx of DVT - INR therapeutic - c/w Coumadin COPD - c/w Duoneb and Symbicort Compensated Diastolic CHF - No evidence of exacerbation - Hold Diuretics Schizophrenia - c/w Haloperidol, Ziprasidone and Benztropine HTN - c/w Atenolol DLP - Hold Simvastatin DVT prophylaxis - c/w full anticoagulation with Coumadin VS,Fishbone, I+O VS, Fishbone, I+O Laboratory Tests 12/14/16 06:03 Red Blood Count 3.10 L, Mean Corpuscular Volume 95.2, Mean Corpuscular Hemoglobin 30.3, Mean Corpuscular Hemoglobin Concent 31.9 L, Red Cell Distribution Width 14.3, Neutrophils (%) (Auto) 80.0 H, Lymphocytes (%) (Auto) 7.6 L, Monocytes (%) (Auto) 8.1 H, Eosinophils (%) (Auto) 2.5, Basophils (%) ( Auto) 0.7, Neutrophils # (Auto) 7.2, Lymphocytes # (Auto) 0.7 L, Monocytes # ( Auto) 0.7, Eosinophils # (Auto) 0.2, Basophils # (Auto) 0.1, Calcium Level 8.0 L Vital Signs Date Time Temp Pulse Resp B/P (MAP) Pulse Ox O2 Delivery O2 Flow Rate FiO2 12/14/16 09:02 60 159/76 12/14/16 06:00 97.3 18 96 Room Air I&O- Last 24 Hours up to 6 AM 12/15/16 06:00 Intake Total 1200 ml Output Total 900 ml Balance 300 ml JERI SINGH MD Dec 14, 2016 13:37
[2016-12-14 14:00] VITALS: BP 143/71
[2016-12-14] MEDS: NS 1,000 ML IV SCH ×2 (15:03→21:43)
[2016-12-14] MEDS: ACETAMINOPHEN 500 MG TAB PO PRN (15:16)
[2016-12-14] MEDS: WARFARIN SOD 5 MG TAB PO SCH (17:31)
[2016-12-14] MEDS: CEFEPIME HCL 1 GM in D5W MINI-BAG PLUS 50 ML IV SCH (21:41)
[2016-12-14] MEDS: BENZTROPINE 0.5 MG TAB PO SCH (21:41)
[2016-12-14 22:00] VITALS: BP 156/73
[2016-12-14] MEDS: VANCOMYCIN HCL 1,000 MG, VIAL MATE ADAPTER 1 EACH in D5W 250 ML IV SCH (23:33)
[2016-12-15] MEDS: ACETAMINOPHEN 500 MG TAB PO PRN ×2 (00:16→17:29)
[2016-12-15 06:00] VITALS: BP 154/77
[2016-12-15 06:00] LABS: BASO % 0.5 % (0.0-1.0); EOS # 0.4 10^3/uL (0.0-0.50); EOS % 4.4 % (0.0-3.0); IMMATURE GRANULOCYTE % 1.6 % (0-0); LYMPH # 1.2 10^3/uL (1.5-4.5); LYMPH % 14.3 % (24.0-44.0); MEAN CORPUSCULAR HEMOGLOBIN 29.9 pg (27.0-33.0); MEAN CORPUSCULAR HGB CONC 31.4 g/dl (32.0-36.5); MEAN CORPUSCULAR VOLUME 95.3 fl (80.0-96.0); MONO # 0.7 10^3/uL (0.0-0.8); NEUTROPHILS # 5.9 10^3/uL (1.8-7.7); NEUTROPHILS % 71.2 % (36.0-66.0); PLATELET COUNT, AUTOMATED 202 10^3/uL (150-450); RED CELL DISTRIBUTION WIDTH 14.2 % (11.5-14.5); WHITE BLOOD COUNT 8.2 10^3/uL (4.0-10.0)
[2016-12-15 06:10] LABS: INR 2.54
[2016-12-15 06:21] LABS: ALBUMIN 1.5 GM/DL (3.2-5.2); ALBUMIN/GLOBULIN RATIO 0.47 (1.00-1.93); BILIRUBIN,TOTAL 0.2 MG/DL (0.2-1.0); CALCIUM LEVEL 7.2 MG/DL (8.8-10.2); CREATININE FOR GFR 1.65 MG/DL (0.70-1.30); GLOMERULAR FILTRATION RATE 44.7 (>49); POTASSIUM SERUM 3.9 MEQ/L (3.5-5.1); TOTAL PROTEIN 4.7 GM/DL (6.4-8.2)
[2016-12-15] MEDS: IPRATROPIUM 0.5MG/ALBUTEROL 2.5MG INH SOL UD 3ML (DUONEB)(J7620) NEB SCH ×3 (07:31→23:05)
[2016-12-15] MEDS: SYMBICORT 80/4.5MCG INHALER 6GM INH SCH ×2 (07:31→19:55)
[2016-12-15] MEDS ORDERED: cefTRIAXone SOD 1 GM in D5W MINI-BAG PLUS 50 ML IV SCH (08:00)
[2016-12-15] MEDS: D5W/0.45% SODIUM CHLORIDE 1,000 ML IV SCH ×2 (08:08→20:37)
[2016-12-15] MEDS: HumaLOG INSULIN (NovoLOG) PER UNIT SC SCH ×4 (08:09→21:00)
[2016-12-15] MEDS: LEVEMIR (INSULIN DETEMIR) 1 UNITS/0.01ML SC SCH (08:09)
[2016-12-15] MEDS: ZIPRASIDONE 80 MG CAP (GEODON) PO SCH ×2 (08:10→20:37)
[2016-12-15] MEDS: NYSTATIN 100,000 UNITS/GM TOPICAL PWD 15 GM TOP SCH ×2 (08:10→20:57)
[2016-12-15] MEDS: CLOPIDOGREL 75 MG TAB PO SCH (08:13)
[2016-12-15] MEDS: ATENOLOL 50 MG TAB PO SCH (08:13)
[2016-12-15] MEDS: SENOKOT S TAB PO SCH ×2 (08:13→20:37)
[2016-12-15] MEDS: HALOPERIDOL 5 MG TAB PO SCH (08:39)
--- NOTE | 2016-12-15 10:50 | IPNPDOC ---
Text Note Date of Service The patient was seen on 12/15/16. NOTE Subjective: Patient is a 66 year old male with a PMHx of PVD (s/p R AKA), Chronic L 5th toe amputation 2/2 Osteomyelitis (non-healing), L femoral wound breakdown , COPD, DM2, HTN, DLP, CAD s/p stent (Hx of [place] 2005), DVT on Coumadin, Schizoaffective disorder, Hx of Cranial Surgery 2/2 Trauma, and Neuropathy who presented to the ER with complaint of AMS and falls. He was admitted for infection of left 5th toe amputation and possible left 4th toe osteomyelitis. Dr. Jeffers has been consulted for evaluation and management. Patient was seen and examined at the bedside. Currently he notes that he wants to go home. I've advised him that it is necessary to continue with IV antibiotics for his infection. Objective: Vitals (See below) General: Lying in bed, no acute distress, comfortable HEENT: NC, AT CVS: RRR, +S1S2 Lungs: Fair air entry b/l, -w/r/r Abdomen: Soft, ND, NT Extremities: R AKA, - Edema, - Calf tenderness, Erythema on left thigh, LLE with non-healing ulcers Assessment and plan: Sepsis 2/2 Cellulitis of left thigh and foot and Osteomyelitis of left foot - Presented with some confusion and weakness, non-healing ulcers on left foot - Physical with non-healing ulcers on foot, abnormal odor, erythema and drainage - WBC count has improved, No lactic acidosis - XR L foot 12/13: 5th mid metatarsal amputation, distal fourth metatarsal / base of 4th proximal phalanx - osteomyelitis; vascular calcifications - Doppler US 12/13: Negative for DVT - Started Ceftriaxone; s/p Cefepime and Vancomycin (Antibiotic day #3) - Dr. Jeffers (Vascular surgery) on case; will likely need L iliac aneurysm repair and L femoral bypass prior to any other intervention (ie. amputation) - Will need to continue with IV antibiotics - will need placement for sub-acute rehab Rhabdomyolysis - CK levels elevated at ~20K on admission - Will check CK trend; currently pending - c/w IV fluid hydration Acute on Chronic kidney disease - likely 2/2 pre-renal etiology, possibly intra- renal - Baseline Cr of 1.9 - Cr on admission of 2.93; currently trending down better than baselien at 1.65 - c/w IV fluid hydration; will switch to D5 1/2 NS Hypernatremia - likely 2/2 IV fluids - Will switch to D5 1/2NS s/p Hypokalemia - s/p supplementation Chronic left groin wound with drainage - Healing - c/w wound care Transaminitis - possibly 2/2 sepsis, possibly 2/2 medications - Mild improvement - Hold Simvastatin - Will continue to follow IDDM2 - c/w ISS and Levemir PAD - c/w Plavix Hx of DVT - INR therapeutic at 2.54 - c/w Coumadin; will adjust dose to 5 daily COPD - c/w Duoneb and Symbicort Compensated Diastolic CHF - No evidence of exacerbation - Hold Diuretics Schizophrenia - c/w Haloperidol, Ziprasidone and Benztropine HTN - c/w Atenolol DLP - Hold Simvastatin DVT prophylaxis - c/w full anticoagulation with Coumadin VS,Fishbone, I+O VS, Fishbone, I+O Laboratory Tests 12/15/16 05:39 Red Blood Count 3.18 L, Mean Corpuscular Volume 95.3, Mean Corpuscular Hemoglobin 29.9, Mean Corpuscular Hemoglobin Concent 31.4 L, Red Cell Distribution Width 14.2, Neutrophils (%) (Auto) 71.2 H, Lymphocytes (%) (Auto) 14.3 L, Monocytes (%) (Auto) 8.0 H, Eosinophils (%) (Auto) 4.4 H, Basophils (%) (Auto) 0.5, Neutrophils # (Auto) 5.9, Lymphocytes # (Auto) 1.2 L, Monocytes # ( Auto) 0.7, Eosinophils # (Auto) 0.4, Basophils # (Auto) 0.0, Calcium Level 7.2 L , Aspartate Amino Transf (AST/SGOT) 195 H, Alanine Aminotransferase (ALT/SGPT) 111 H, Alkaline Phosphatase 64, Total Bilirubin 0.2, Total Protein 4.7 #L, Albumin 1.5 #L Vital Signs Date Time Temp Pulse Resp B/P (MAP) Pulse Ox O2 Delivery O2 Flow Rate FiO2 12/15/16 08:13 70 156/84 12/15/16 06:00 97.0 18 95 Room Air I&O- Last 24 Hours up to 6 AM 12/16/16 05:59 Intake Total 410 ml Output Total 1400 ml Balance -990 ml JERI SINGH MD Dec 15, 2016 10:50
[2016-12-15 14:00] VITALS: BP 140/80
[2016-12-15] MEDS: ONDANSETRON 4MG/2ML VIAL (J2405) IV PRN (14:32)
[2016-12-15] MEDS: BACITRACIN OINT 30GM TOP SCH ×2 (16:23→20:38)
[2016-12-15] MEDS: DAKIN'S 0.25% HALF-STRENGTH SOLN 480 ML TOP SCH ×2 (16:23→20:38)
[2016-12-15] MEDS ORDERED: WARFARIN SOD 5 MG TAB PO SCH (17:00)
[2016-12-15 20:00] VITALS: BP 156/84
[2016-12-15] MEDS: BENZTROPINE 0.5 MG TAB PO SCH (20:37)
[2016-12-16] MEDS: ACETAMINOPHEN 500 MG TAB PO PRN ×2 (00:02→13:50)
[2016-12-16 06:00] VITALS: BP 157/67
[2016-12-16 06:58] LABS: BASO % 0.4 % (0.0-1.0); EOS # 0.4 10^3/uL (0.0-0.50); EOS % 3.9 % (0.0-3.0); IMMATURE GRANULOCYTE % 1.8 % (0-0); LYMPH # 1.1 10^3/uL (1.5-4.5); LYMPH % 11.7 % (24.0-44.0); MEAN CORPUSCULAR HEMOGLOBIN 29.9 pg (27.0-33.0); MEAN CORPUSCULAR HGB CONC 31.7 g/dl (32.0-36.5); MEAN CORPUSCULAR VOLUME 94.4 fl (80.0-96.0); MONO # 0.7 10^3/uL (0.0-0.8); NEUTROPHILS # 7.1 10^3/uL (1.8-7.7); NEUTROPHILS % 75.2 % (36.0-66.0); PLATELET COUNT, AUTOMATED 206 10^3/uL (150-450); RED CELL DISTRIBUTION WIDTH 14.2 % (11.5-14.5); WHITE BLOOD COUNT 9.5 10^3/uL (4.0-10.0)
[2016-12-16 07:05] LABS: INR 3.17
[2016-12-16] MEDS: SYMBICORT 80/4.5MCG INHALER 6GM INH SCH ×2 (07:13→19:33)
[2016-12-16] MEDS: IPRATROPIUM 0.5MG/ALBUTEROL 2.5MG INH SOL UD 3ML (DUONEB)(J7620) NEB SCH ×3 (07:13→23:11)
[2016-12-16 07:42] LABS: ALBUMIN 1.5 GM/DL (3.2-5.2); ALBUMIN/GLOBULIN RATIO 0.37 (1.00-1.93); ALKALINE PHOSPHATASE 68 U/L (45-117); ALT/SGPT 104 U/L (12-78); ANION GAP 7 MEQ/L (8-16); AST/SGOT 157 U/L (15-37); BILIRUBIN,TOTAL 0.2 MG/DL (0.2-1.0); BLOOD UREA NITROGEN 20 MG/DL (7-18); CALCIUM LEVEL 7.7 MG/DL (8.8-10.2); CARBON DIOXIDE LEVEL 24 MEQ/L (21-32); CHLORIDE LEVEL 111 MEQ/L (98-107); GLOMERULAR FILTRATION RATE 46.3 (>49); GLUCOSE, FASTING 187 MG/DL (80-110); SODIUM LEVEL 142 MEQ/L (136-145); TOTAL PROTEIN 5.6 GM/DL (6.4-8.2)
[2016-12-16] MEDS: HumaLOG INSULIN (NovoLOG) PER UNIT SC SCH ×4 (08:00→21:00)
[2016-12-16] MEDS ORDERED: CEFEPIME HCL 2 GM in D5W MINI-BAG PLUS 50 ML IV SCH (08:00)
[2016-12-16 08:15] VITALS: BP 156/68
[2016-12-16] MEDS: D5W/0.45% SODIUM CHLORIDE 1,000 ML IV SCH ×2 (10:17→22:22)
[2016-12-16] MEDS: SENOKOT S TAB PO SCH ×2 (10:21→20:47)
[2016-12-16] MEDS: ZIPRASIDONE 80 MG CAP (GEODON) PO SCH ×2 (10:21→20:47)
[2016-12-16] MEDS: CLOPIDOGREL 75 MG TAB PO SCH (10:21)
[2016-12-16] MEDS: HALOPERIDOL 5 MG TAB PO SCH (10:21)
[2016-12-16] MEDS: LEVEMIR (INSULIN DETEMIR) 1 UNITS/0.01ML SC SCH (10:25)
[2016-12-16] MEDS: NYSTATIN 100,000 UNITS/GM TOPICAL PWD 15 GM TOP SCH ×2 (10:26→20:51)
[2016-12-16] MEDS: BACITRACIN OINT 30GM TOP SCH ×2 (10:27→20:51)
[2016-12-16] MEDS: DAKIN'S 0.25% HALF-STRENGTH SOLN 480 ML TOP SCH ×3 (10:28→20:51)
[2016-12-16] MEDS: ATENOLOL 50 MG TAB PO SCH (10:31)
--- NOTE | 2016-12-16 11:39 | IPNPDOC ---
Text Note Date of Service The patient was seen on 12/16/16. NOTE Subjective: Patient is a 66 year old male with a PMHx of PVD (s/p R AKA), Chronic L 5th toe amputation 2/2 Osteomyelitis (non-healing), L femoral wound breakdown , COPD, DM2, HTN, DLP, CAD s/p stent (Hx of [place] 2005), DVT on Coumadin, Schizoaffective disorder, Hx of Cranial Surgery 2/2 Trauma, and Neuropathy who presented to the ER with complaint of AMS and falls. He was admitted for infection of left 5th toe amputation and possible left 4th toe osteomyelitis. Dr. Jeffers has been consulted for evaluation and management. Patient was seen and examined at the bedside. Patient does not have any new complaints this morning. Advised that his foot pain has improved. Advised that we will continue with antibiotics skilled nursing and look into placement options. Objective: Vitals (See below) General: Lying in bed, no acute distress, comfortable HEENT: NC, AT CVS: RRR, +S1S2 Lungs: Fair air entry b/l, -w/r/r Abdomen: Soft, ND, NT Extremities: R AKA, - Edema, - Calf tenderness, Erythema on left thigh improved , LLE with non-healing ulcers Assessment and plan: Sepsis 2/2 Cellulitis of left thigh and foot and Osteomyelitis of left foot - Confusion upon admission has resolved, non-healing ulcers on left foot has shown improvement with antibiotics - Physical with non-healing ulcers on foot, abnormal odor, erythema and drainage - WBC count has improved, No lactic acidosis - XR L foot 12/13: 5th mid metatarsal amputation, distal fourth metatarsal / base of 4th proximal phalanx - osteomyelitis; vascular calcifications - Doppler US 12/13: Negative for DVT - Changed to Cefepime; s/p Vancomycin (Antibiotic day #4) - Dr. Jeffers (Vascular surgery) on case; will likely need L iliac aneurysm repair and L femoral bypass prior to any other intervention (ie. amputation); not during this hospital course - c/w IV antibiotics skilled nursing; discussed with case management for sub-acute rehab placement Rhabdomyolysis - CK levels elevated at ~20K on admission - CK has trended down significantly - c/w IV fluid hydration Acute on Chronic kidney disease - likely 2/2 pre-renal etiology, possibly intra- renal - Baseline Cr of 1.9 - Cr on admission of 2.93; currently trending down better than baseline at 1.65 - c/w D5 1/2 NS s/p Hypernatremia - likely 2/2 IV fluids s/p Hypokalemia - s/p supplementation Chronic left groin wound with drainage - Healing - c/w wound care Transaminitis - possibly 2/2 sepsis, possibly 2/2 medications - Continues to improve - Continue to hold Simvastatin - will check Hepatitis profile IDDM2 - c/w ISS and Levemir PAD - c/w Plavix Hx of DVT - INR mildly supra-therapeutic at 3.14 - c/w Coumadin; will again reduce dose to 3 COPD - c/w Duoneb and Symbicort Compensated Diastolic CHF - No evidence of exacerbation - Hold Diuretics Schizophrenia - c/w Haloperidol, Ziprasidone and Benztropine HTN - c/w Atenolol DLP - Hold Simvastatin DVT prophylaxis - c/w full anticoagulation with Coumadin VS,Fishbone, I+O VS, Fishbone, I+O Laboratory Tests 12/16/16 06:21 Red Blood Count 3.21 L, Mean Corpuscular Volume 94.4, Mean Corpuscular Hemoglobin 29.9, Mean Corpuscular Hemoglobin Concent 31.7 L, Red Cell Distribution Width 14.2, Neutrophils (%) (Auto) 75.2 H, Lymphocytes (%) (Auto) 11.7 L, Monocytes (%) (Auto) 7.0 H, Eosinophils (%) (Auto) 3.9 H, Basophils (%) (Auto) 0.4, Neutrophils # (Auto) 7.1, Lymphocytes # (Auto) 1.1 L, Monocytes # ( Auto) 0.7, Eosinophils # (Auto) 0.4, Basophils # (Auto) 0.0, Calcium Level 7.7 L , Aspartate Amino Transf (AST/SGOT) 157 H, Alanine Aminotransferase (ALT/SGPT) 104 H, Total Creatine Kinase 2497 H, Alkaline Phosphatase 68, Total Bilirubin 0.2, Total Protein 5.6 L, Albumin 1.5 L Vital Signs Date Time Temp Pulse Resp B/P (MAP) Pulse Ox O2 Delivery O2 Flow Rate FiO2 12/16/16 10:31 78 156/67 12/16/16 08:15 97.6 19 94 Room Air I&O- Last 24 Hours up to 6 AM 12/17/16 06:00 Intake Total 1240 ml Balance 1240 ml JERI SINGH MD Dec 16, 2016 11:39
[2016-12-16 14:43] VITALS: BP 154/70
[2016-12-16] MEDS ORDERED: WARFARIN SOD 3 MG TAB PO SCH (17:00)
[2016-12-16] MEDS: CEFEPIME HCL 2 GM in D5W 50 ML IV SCH (20:47)
[2016-12-16] MEDS: BENZTROPINE 0.5 MG TAB PO SCH (20:48)
[2016-12-16 22:00] VITALS: BP 130/70
[2016-12-17 00:07] LABS: CK TOTAL 4063 U/L (24-204)
[2016-12-17] MEDS: ACETAMINOPHEN 500 MG TAB PO PRN ×2 (02:29→12:09)
[2016-12-17] MEDS: ONDANSETRON 4MG/2ML VIAL (J2405) IV PRN (03:06)
[2016-12-17 07:10] LABS: BASO # 0.1 10^3/uL (0.0-0.2); BASO % 0.6 % (0.0-1.0); EOS # 0.4 10^3/uL (0.0-0.50); EOS % 3.4 % (0.0-3.0); IMMATURE GRANULOCYTE % 2.3 % (0-0); LYMPH # 1.1 10^3/uL (1.5-4.5); LYMPH % 10.2 % (24.0-44.0); MEAN CORPUSCULAR HEMOGLOBIN 29.4 pg (27.0-33.0); MEAN CORPUSCULAR HGB CONC 31.3 g/dl (32.0-36.5); MONO # 0.7 10^3/uL (0.0-0.8); MONO % 6.6 % (0.0-5.0); NEUTROPHILS # 8.5 10^3/uL (1.8-7.7); NEUTROPHILS % 76.9 % (36.0-66.0); PLATELET COUNT, AUTOMATED 239 10^3/uL (150-450); RED CELL DISTRIBUTION WIDTH 14.2 % (11.5-14.5); WHITE BLOOD COUNT 11.1 10^3/uL (4.0-10.0)
[2016-12-17 07:14] LABS: INR 2.56
[2016-12-17 07:15] LABS: ALBUMIN 1.6 GM/DL (3.2-5.2); ALBUMIN/GLOBULIN RATIO 0.37 (1.00-1.93); BILIRUBIN,TOTAL 0.1 MG/DL (0.2-1.0); CALCIUM LEVEL 8.1 MG/DL (8.8-10.2); CREATININE FOR GFR 1.58 MG/DL (0.70-1.30); GLOMERULAR FILTRATION RATE 46.9 (>49); POTASSIUM SERUM 4.3 MEQ/L (3.5-5.1); TOTAL PROTEIN 5.9 GM/DL (6.4-8.2)
[2016-12-17] MEDS: SYMBICORT 80/4.5MCG INHALER 6GM INH SCH (07:16)
[2016-12-17] MEDS: IPRATROPIUM 0.5MG/ALBUTEROL 2.5MG INH SOL UD 3ML (DUONEB)(J7620) NEB SCH (07:16)
[2016-12-17] MEDS: HumaLOG INSULIN (NovoLOG) PER UNIT SC SCH ×2 (08:11→12:10)
[2016-12-17] MEDS: CEFEPIME HCL 2 GM in D5W 50 ML IV SCH (08:11)
[2016-12-17] MEDS: LEVEMIR (INSULIN DETEMIR) 1 UNITS/0.01ML SC SCH (09:00)
[2016-12-17] MEDS: SENOKOT S TAB PO SCH (09:24)
[2016-12-17] MEDS: BACITRACIN OINT 30GM TOP SCH (09:24)
[2016-12-17] MEDS: NYSTATIN 100,000 UNITS/GM TOPICAL PWD 15 GM TOP SCH (09:24)
[2016-12-17] MEDS: DAKIN'S 0.25% HALF-STRENGTH SOLN 480 ML TOP SCH (09:24)
[2016-12-17] MEDS: CLOPIDOGREL 75 MG TAB PO SCH (09:25)
[2016-12-17] MEDS: ZIPRASIDONE 80 MG CAP (GEODON) PO SCH (09:25)
[2016-12-17] MEDS: HALOPERIDOL 5 MG TAB PO SCH (09:25)
[2016-12-17] MEDS ORDERED: BACI50OI TOP (11:02)
[2016-12-17] MEDS ORDERED: CEFE2INJ IV (11:02)
[2016-12-17] MEDS ORDERED: COUM1TAB14 PO (11:02)
[2016-12-17 12:09] VITALS: BP 175/81
[2016-12-17] MEDS: ATENOLOL 50 MG TAB PO SCH (12:09)
[2016-12-17 12:17] VITALS: BP 175/81
[2016-12-17] MEDS ORDERED: NYST10PW TOP (13:45)
[2016-12-17] MEDS: D5W/0.45% SODIUM CHLORIDE 1,000 ML IV SCH (14:00)
--- NOTE | 2016-12-17 16:03 | DSES ---
DATE OF ADMISSION: 12/12/2016 DATE OF DISCHARGE: 12/17/2016 ATTENDING PHYSICIAN: Yaritza Sharpe MD, Luis Koroma MD PRIMARY CARE PHYSICIAN: Alok Casey MD REFERRING PHYSICIAN: Maryana Jeffers MD CONSULTING PHYSICIAN: Maryana Jeffers MD CONDITION ON DISCHARGE: Stable. FINAL DIAGNOSIS: Sepsis secondary to cellulitis of the left thigh and foot as well as osteomyelitis of the left foot. PROCEDURES: None. HISTORY OF PRESENT ILLNESS: The patient is a 66-year-old male with a past medical history of peripheral vascular disease status post right above knee amputation, chronic left 5th toe amputation secondary to osteomyelitis, nonhealing left femoral wound breakdown, chronic obstructive pulmonary disease (COPD), diabetes mellitus type 2, hypertension, dyslipidemia, coronary artery disease status post stent, history of myocardial infarction (SC) in 2005, deep venous thrombosis (DVT) on Coumadin, schizoaffective disorder, history of cranial surgery secondary to trauma, and uropathy who presented to the emergency room (ER) with complaints of altered mental status and fall. He was admitted for infection of the left 5th toe and amputation and possible 4th toe osteomyelitis. Dr. Jeffers has been consulted for evaluation and management. HOSPITAL COURSE: 1. Sepsis secondary to cellulitis of the thigh and osteomyelitis of the left foot. Confusion upon admission has resolved throughout the hospital course. Nonhealing ulcers on the left foot have shown improvement with antibiotics. Physical with nonhealing ulcers on the foot, abnormal odor, erythema and drainage. White cell count has improved throughout the hospital course. No lactic acidosis. X-ray of left foot on 12/13/2016, revealed a 5th midmetatarsal amputation, distal 4th metatarsal/base of the 4th proximal phalanx revealed osteomyelitis and vascular calcification. Doppler ultrasound on 12/13/2016, was negative for DVT. Patient was kept on cefepime. He is status post vancomycin. Currently, he is on antibiotic day #5. He will continue with antibiotics for a long duration given that he has osteomyelitis. Dr. Jeffers will be managing antibiotics as an outpatient. Patient should have a peripherally inserted central catheter (PICC) line placed and will continue to receive antibiotics in subacute rehabilitation. Dr. Jeffers of vascular surgery was consulted and has been managing the patient's lower extremity wounds. He has performed the amputation on prior admissions. On discussion with Dr. Jeffers, plan is that the patient will likely need a left iliac aneurysm repair, a left superficial femoral artery bypass prior to any further intervention such as amputations. It is unlikely that this was going to happen during this hospital course and patient will likely need to continue receiving IV antibiotics prior for these procedures to happen. 2. Rhabdomyolysis. Creatine-kinase (CK) level is elevated on admission of greater than 20,000, has been trending down significantly. Patient was put on IV fluid hydration throughout the hospital course. 3. Acute on chronic kidney disease likely secondary to prerenal etiology. Baseline creatinine 1.9, creatinine on admission of 2.93, currently trending down and is better than baseline of 1.65. 4. Status post hypernatremia likely secondary to IV fluids. 5. Status post hypokalemia status post supplementation. 6. Chronic left groin wound with drainage. This is noted to have significant improvement. Continue with local wound care as per Dr. Jeffers's recommendations. 7. Transaminitis, possibly secondary to sepsis, possibly secondary to medications. Continued to improve. Simvastatin has been held throughout hospital course. Hepatitis panel has been sent and has been negative. 8. Insulin dependent diabetes mellitus type 2. Continue with insulin sliding scale and Levemir. 9. Peripheral artery disease. Continue with Plavix. 10. History of DVT. INR is supratherapeutic at 2.56. Will continue with adjusted dose of Coumadin moving forward. 11. COPD. Continue with DuoNeb and Symbicort. 12. Compensated diastolic congestive heart failure (CHF). No evidence of exacerbation. Hold diuretics. 13. Schizophrenia. Continue with haloperidol, trazodone, and benztropine. 14. Hypertension. Continue with atenolol. 15. Dyslipidemia. Hold simvastatin. 16. DVT prophylaxis. Has been on full anticoagulation with Coumadin. DISCHARGE MEDICATIONS: The patient is being discharged home with the following medication list: - bacitracin ointment to be applied as directed - cefepime to be under the management of Dr. Jeffers - nystatin to be taken as directed - warfarin 4 mg by mouth daily - acetaminophen 650 mg by mouth every 4 hours as needed pain - atenolol 50 mg by mouth daily - benztropine 0.5 mg by mouth nightly - Plavix 75 mg by mouth daily - docusate sodium 200 mg by mouth nightly - Breo Ellipta 1000 inhaled daily - haloperidol 5 mg by mouth daily - insulin glargine 75 units subcutaneous daily - milk of magnesia 30 mg by mouth daily as needed for constipation - nitroglycerin 0.4 mg sublingual as needed for chest pain - simvastatin 20 mg by mouth nightly - ziprasidone 80 mg by mouth twice a day Stopped medications include clotrimazole and warfarin 7.5 mg by mouth daily. DISCHARGE INSTRUCTIONS: Patient has been advised to followup with his primary care provider as well as Dr. Jeffers within the next 3 days. He has been advised to remain compliant with treatment plan and medications and return to the emergency room if he experiences any problems. TIME SPENT ON DISCHARGE: Greater than 35 minutes.
--- NOTE | 2016-12-17 16:10 | REP ---
RIGHT PICC LINE PLACEMENT: The procedure was performed by HARMEET Talbert under the direct supervision of Dr. Aguilar. The procedure along with its risks, benefits, and complications were discussed with the patient prior to the examination. Informed consent was obtained both verbally and written. The patient was identified in the interventional suite and placed in a supine position. The right arm was marked, prepped and draped in the usual sterile fashion. A procedural time out was performed to ensure that the correct patient, site and procedure were being performed. Under ultrasound guidance the right basilic vein was punctured. A thin guidewire was introduced and the needle was removed. Local infiltrative anesthesia was achieved using 2% lidocaine. A break-away sheath was placed over the wire. Under fluoroscopic observation and via the break-away sheath a 40 cm single lumen PICC line was placed with its tip at the junction of the distal superior vena cava. The catheter was flushed with heparinized saline and affixed to the patient's skin. The patient tolerated the procedure well. IMPRESSION: Uncomplicated right upper extremity single lumen PICC line placement. Fluoroscopy time was 0.1 minutes. Reviewed by HARMEET Kohler 12/17/2016 06:18 PEdited and Signed by Prabhu Aguilar MD 12/20/2016 04:09 P
--- NOTE | 2016-12-29 15:04 | CR ---
DATE OF CONSULTATION:12/18/2016 Mr. Cisneros is a patient of mine that is well-known and the consultation was placed for appropriate wound care for his left femoral wound and his left fifth toe amputation site as well as left thigh cellulitis. I had recommended that the patient continue with wet-to-dry with Dakin's twice a day to the left fifth toe amputation site and dry foam dressing in the left femoral wound. The cellulitis in the left thigh is not related to the wound distally or proximally. The patient has a history of venous insufficiency and required IV antibiotics and elevation and will followup with me as an outpatient.
== END 2016-12-17 14:53 | DRG 564 ==
LOC: EDBD 17:36 → M ED 17:36 → M ED INP 20:25 → M MSPAV 22:35
PROVIDERS: ADMIT Internal Medicine Nephrology; ATTEND Internal Medicine
PROC: 02HV33Z Insertion of Infusion Device into Superior Vena Cava, Percutaneous Approach (ICD-10-PCS; principal; 2016-12-17)
DX: T87.44 Infection of amputation stump, left lower extremity (principal); A41.9 Sepsis, unspecified organism; M86.172 Other acute osteomyelitis, left ankle and foot; M62.82 Rhabdomyolysis; I50.32 Chronic diastolic (congestive) heart failure; E87.0 Hyperosmolality and hypernatremia; N17.9 Acute kidney failure, unspecified; I13.0 Hypertensive heart and chronic kidney disease with heart failure and stage 1 through stage 4 chronic kidney disease, or unspecified chronic kidney disease; E11.51 Type 2 diabetes mellitus with diabetic peripheral angiopathy without gangrene; J44.9 Chronic obstructive pulmonary disease, unspecified; E11.69 Type 2 diabetes mellitus with other specified complication; F20.9 Schizophrenia, unspecified; E87.6 Hypokalemia; I25.10 Atherosclerotic heart disease of native coronary artery without angina pectoris; I25.2 Old myocardial infarction; Z79.01 Long term (current) use of anticoagulants; E66.9 Obesity, unspecified; Z89.611 Acquired absence of right leg above knee; Z86.718 Personal history of other venous thrombosis and embolism; N18.9 Chronic kidney disease, unspecified; F17.200 Nicotine dependence, unspecified, uncomplicated; E78.5 Hyperlipidemia, unspecified; Y83.5 Amputation of limb(s) as the cause of abnormal reaction of the patient, or of later complication, without mention of misadventure at the time of the procedure

== ENCOUNTER → 2016-12-20 | Outpatient (REF) ==
[~2016-12-20] MED LIST changes: +BACI50OI TOP; +CEFE2INJ IV; +COUM1TAB14 PO; +NYST10PW TOP
[2016-12-20 09:48] LABS: MEAN CORPUSCULAR HEMOGLOBIN 29.7 pg (27.0-33.0); MEAN CORPUSCULAR HGB CONC 31.5 g/dl (32.0-36.5); MEAN CORPUSCULAR VOLUME 94.4 fl (80.0-96.0); RED CELL DISTRIBUTION WIDTH 14.2 % (11.5-14.5); WHITE BLOOD COUNT 10.5 10^3/uL (4.0-10.0)
[2016-12-20 10:25] LABS: ALBUMIN 1.8 GM/DL (3.2-5.2); ALBUMIN/GLOBULIN RATIO 0.4 (1.00-1.93); BILIRUBIN,TOTAL 0.2 MG/DL (0.2-1.0); CALCIUM LEVEL 8.5 MG/DL (8.8-10.2); CREATININE FOR GFR 1.78 MG/DL (0.70-1.30); GLOMERULAR FILTRATION RATE 40.9 (>49); POTASSIUM SERUM 4.4 MEQ/L (3.5-5.1); TOTAL PROTEIN 6.3 GM/DL (6.4-8.2)
--- NOTE | 2016-12-21 20:11 | ECGEPIP ---
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
== END ==
LOC: SKLAB7 07:03
PROVIDERS: ATTEND Internal Medicine
DX: E11.9 Type 2 diabetes mellitus without complications (principal); M86.9 Osteomyelitis, unspecified

== ENCOUNTER → 2016-12-21 | Outpatient (REF) ==
[2016-12-21 08:03] LABS: INR 1.85
== END ==
LOC: SKLAB7 07:18
PROVIDERS: ATTEND Internal Medicine
DX: I48.91 Unspecified atrial fibrillation (principal)

== ENCOUNTER → 2016-12-22 | Outpatient (REF) | payer MEDICARE, MEDICAID | LOC: SKLAB7 18:23 | PROVIDERS: ATTEND Internal Medicine | DX: J44.9 Chronic obstructive pulmonary disease, unspecified (principal); I73.9 Peripheral vascular disease, unspecified; E11.9 Type 2 diabetes mellitus without complications; M86.9 Osteomyelitis, unspecified ==

== ENCOUNTER → 2016-12-24 | Outpatient (REF) ==
[2016-12-24 08:09] LABS: INR 1.37
[2016-12-24 11:17] LABS: BASO # 0.1 10^3/uL (0.0-0.2); BASO % 0.5 % (0.0-1.0); EOS # 0.2 10^3/uL (0.0-0.50); EOS % 1.7 % (0.0-3.0); IMMATURE GRANULOCYTE % 0.9 % (0-0); LYMPH # 1.2 10^3/uL (1.5-4.5); LYMPH % 10.5 % (24.0-44.0); MEAN CORPUSCULAR HEMOGLOBIN 29.7 pg (27.0-33.0); MEAN CORPUSCULAR VOLUME 92.9 fl (80.0-96.0); MONO # 0.8 10^3/uL (0.0-0.8); MONO % 6.4 % (0.0-5.0); NEUTROPHILS # 9.3 10^3/uL (1.8-7.7); PLATELET COUNT, AUTOMATED 240 10^3/uL (150-450); RED CELL DISTRIBUTION WIDTH 14.5 % (11.5-14.5); WHITE BLOOD COUNT 11.7 10^3/uL (4.0-10.0)
[2016-12-24 11:50] LABS: ERYTHROCYTE SEDIMENTATION RATE 89 mm/hr (0-20)
== END ==
LOC: SKLAB7 12-24 07:00
PROVIDERS: ATTEND Internal Medicine
DX: I48.91 Unspecified atrial fibrillation (principal)

== ENCOUNTER → 2016-12-27 | Outpatient (REF) ==
[2016-12-27 13:26] LABS: BASO # 0.1 10^3/uL (0.0-0.2); BASO % 0.7 % (0.0-1.0); EOS # 0.2 10^3/uL (0.0-0.50); EOS % 1.9 % (0.0-3.0); IMMATURE GRANULOCYTE % 0.7 % (0-0); LYMPH # 1.2 10^3/uL (1.5-4.5); LYMPH % 13.6 % (24.0-44.0); MEAN CORPUSCULAR HEMOGLOBIN 29.3 pg (27.0-33.0); MEAN CORPUSCULAR HGB CONC 31.2 g/dl (32.0-36.5); MONO # 0.8 10^3/uL (0.0-0.8); MONO % 8.5 % (0.0-5.0); NEUTROPHILS # 6.8 10^3/uL (1.8-7.7); NEUTROPHILS % 74.6 % (36.0-66.0); PLATELET COUNT, AUTOMATED 239 10^3/uL (150-450); RED CELL DISTRIBUTION WIDTH 14.3 % (11.5-14.5); WHITE BLOOD COUNT 9.1 10^3/uL (4.0-10.0)
[2016-12-27 13:32] LABS: ADD MANUAL DIFFER NO; DIFF SLIDE NUMBER 180
[2016-12-27 13:48] LABS: INR 1.48
== END ==
LOC: SKLAB7 10:24
PROVIDERS: ATTEND Internal Medicine
DX: I48.91 Unspecified atrial fibrillation (principal); M86.9 Osteomyelitis, unspecified

== ENCOUNTER → 2016-12-31 | Outpatient (REF) ==
[2016-12-31 08:07] LABS: BASO # 0.1 10^3/uL (0.0-0.2); BASO % 0.8 % (0.0-1.0); EOS # 0.2 10^3/uL (0.0-0.50); EOS % 3.2 % (0.0-3.0); IMMATURE GRANULOCYTE % 0.5 % (0-0); LYMPH # 1.7 10^3/uL (1.5-4.5); LYMPH % 22.4 % (24.0-44.0); MEAN CORPUSCULAR HEMOGLOBIN 29.3 pg (27.0-33.0); MEAN CORPUSCULAR HGB CONC 31.8 g/dl (32.0-36.5); MEAN CORPUSCULAR VOLUME 92.2 fl (80.0-96.0); MONO # 0.9 10^3/uL (0.0-0.8); MONO % 11.8 % (0.0-5.0); NEUTROPHILS # 4.6 10^3/uL (1.8-7.7); NEUTROPHILS % 61.3 % (36.0-66.0); PLATELET COUNT, AUTOMATED 199 10^3/uL (150-450); RED CELL DISTRIBUTION WIDTH 14.4 % (11.5-14.5); WHITE BLOOD COUNT 7.5 10^3/uL (4.0-10.0)
[2016-12-31 08:25] LABS: INR 1.68
== END ==
LOC: SKLAB7 07:00
PROVIDERS: ATTEND Internal Medicine
DX: I48.91 Unspecified atrial fibrillation (principal); M86.9 Osteomyelitis, unspecified

== ENCOUNTER → 2017-01-03 | Outpatient (REF) ==
[2017-01-03 08:30] LABS: INR 1.99
== END ==
LOC: SKLAB7 07:05
PROVIDERS: ATTEND Internal Medicine
DX: I48.91 Unspecified atrial fibrillation (principal)

== ENCOUNTER → 2017-01-12 | Outpatient (REF) | payer MEDICARE, MEDICAID | LOC: M LAB REF 01-11 12:27 | PROVIDERS: ATTEND Surgery | DX: M86.18 Other acute osteomyelitis, other site (principal); M79.89 Other specified soft tissue disorders; L97.524 Non-pressure chronic ulcer of other part of left foot with necrosis of bone; E11.621 Type 2 diabetes mellitus with foot ulcer; Z79.4 Long term (current) use of insulin | CPT/HCPCS: 11042; 11044; 88304; 88311; G0463 ==

== ENCOUNTER → 2017-01-20 | Outpatient (REF) | payer MEDICARE, MEDICAID ==
[2017-01-20 12:10] LABS: BASO % 0.3 % (0.0-1.0); EOS # 0.1 10^3/uL (0.0-0.50); EOS % 1.1 % (0.0-3.0); IMMATURE GRANULOCYTE % 0.8 % (0-0); LYMPH # 1.2 10^3/uL (1.5-4.5); LYMPH % 11.6 % (24.0-44.0); MEAN CORPUSCULAR HEMOGLOBIN 29.6 pg (27.0-33.0); MEAN CORPUSCULAR HGB CONC 32.1 g/dl (32.0-36.5); MEAN CORPUSCULAR VOLUME 92.2 fl (80.0-96.0); MONO % 9.2 % (0.0-5.0); NEUTROPHILS # 8.1 10^3/uL (1.8-7.7); PLATELET COUNT, AUTOMATED 259 10^3/uL (150-450); RED CELL DISTRIBUTION WIDTH 14.6 % (11.5-14.5); WHITE BLOOD COUNT 10.5 10^3/uL (4.0-10.0)
[2017-01-20 12:34] LABS: ERYTHROCYTE SEDIMENTATION RATE 82 mm/hr (0-20)
[2017-01-20 13:37] LABS: CALCIUM LEVEL 9.2 MG/DL (8.8-10.2); CREATININE FOR GFR 1.77 MG/DL (0.70-1.30); GLOMERULAR FILTRATION RATE 41.2 (>49); POTASSIUM SERUM 4.6 MEQ/L (3.5-5.1)
== END ==
LOC: M SFHCPLAZ 09:19
PROVIDERS: ATTEND Internal Medicine Infectious Disease
DX: L97.522 Non-pressure chronic ulcer of other part of left foot with fat layer exposed (principal)
CPT/HCPCS: 36415; 80048; 85025; 85652; 86140; G0463

== ENCOUNTER → 2017-01-26 | Outpatient (REF) | payer MEDICARE, MEDICAID | LOC: M LAB REF 17:02 | PROVIDERS: ATTEND Surgery | DX: M86.672 Other chronic osteomyelitis, left ankle and foot (principal) ==

== ENCOUNTER → 2017-02-16 | Outpatient (REF) | payer MEDICARE, MEDICAID | LOC: M LAB REF 16:25 | PROVIDERS: ATTEND Surgery | DX: L97.524 Non-pressure chronic ulcer of other part of left foot with necrosis of bone (principal); E11.621 Type 2 diabetes mellitus with foot ulcer ==

== ENCOUNTER 2017-03-22 05:38 | Inpatient (IN) | payer MEDICARE, MEDICAID ==
[2017-03-22 06:57] LABS: BASO # 0.1 10^3/uL (0.0-0.2); BASO % 0.3 % (0.0-1.0); EOS # 0.2 10^3/uL (0.0-0.50); HEMATOCRIT 30.7 % (42.0-52.0); HEMOGLOBIN 10.1 g/dl (14.0-18.0); IMMATURE GRANULOCYTE # 0.2 10^3/uL (0-0); LYMPH # 1.1 10^3/uL (1.5-4.5); LYMPH % 6.8 % (24.0-44.0); MEAN CORPUSCULAR HEMOGLOBIN 29.6 pg (27.0-33.0); MEAN CORPUSCULAR HGB CONC 32.9 g/dl (32.0-36.5); MONO # 1.1 10^3/uL (0.0-0.8); MONO % 7.2 % (0.0-5.0); NEUTROPHILS # 13.1 10^3/uL (1.8-7.7); NEUTROPHILS % 83.7 % (36.0-66.0); PLATELET COUNT, AUTOMATED 270 10^3/uL (150-450); RED BLOOD COUNT 3.41 10^6/uL (4.30-6.10); RED CELL DISTRIBUTION WIDTH 14.5 % (11.5-14.5); WHITE BLOOD COUNT 15.6 10^3/uL (4.0-10.0)
[2017-03-22] MEDS: GABAPENTIN 100 MG CAP PO ×3 (07:04→21:29)
[2017-03-22] MEDS: ACETAMINOPHEN TAB 650MG DOSE (2X325MG) PO (07:05)
[2017-03-22 07:11] LABS: ANION GAP 6 MEQ/L (8-16); BLOOD UREA NITROGEN 40 MG/DL (7-18); CALCIUM LEVEL 9.7 MG/DL (8.8-10.2); CARBON DIOXIDE LEVEL 30 MEQ/L (21-32); CHLORIDE LEVEL 105 MEQ/L (98-107); CREATININE FOR GFR 2.28 MG/DL (0.70-1.30); GLOMERULAR FILTRATION RATE 30.7 (>49); GLUCOSE, FASTING 184 MG/DL (80-110); POTASSIUM SERUM 4.3 MEQ/L (3.5-5.1); SODIUM LEVEL 141 MEQ/L (136-145)
[2017-03-22 07:15] LABS: LACTIC ACID SEPSIS PROTOCOL 0.5 MMOL/L (0.4-2.0)
[2017-03-22 07:24] LABS: INR 1.89; PROTHROMBIN TIME 22.3 SECONDS (12.4-14.5)
[2017-03-22 07:26] LABS: PARTIAL THROMBOPLASTIN TIME 56.4 SECONDS (26.8-37.9)
[2017-03-22 07:55] LABS: ERYTHROCYTE SEDIMENTATION RATE 127 mm/hr (0-20)
[2017-03-22] MEDS: SYMBICORT 160/4.5MCG INHALER 6GM INH ×2 (08:00→20:00)
[2017-03-22] MEDS: CEFTAROLINE FOSAMIL 400 MG in APPROPRIATE DILUENT 1 EA IV ×2 (08:58→21:28)
[2017-03-22] MEDS: HALOPERIDOL 5 MG TAB PO (09:00)
[2017-03-22] MEDS: ATENOLOL 50 MG TAB PO (09:00)
[2017-03-22] MEDS: LEVEMIR (INSULIN DETEMIR) 1 UNITS/0.01ML SC ×2 (09:00→21:32)
[2017-03-22] MEDS ORDERED: HEPARIN SOD (PORCINE) 5000 UNITS/ML VIAL SQ (10:15)
[2017-03-22] MEDS: SENOKOT S TAB PO ×2 (12:26→21:28)
[2017-03-22] MEDS ORDERED: CEFTAROLINE FOSAMIL 400 MG in APPROPRIATE DILUENT 1 EA IV (12:30)
[2017-03-22] MEDS ORDERED: GLUCOSE 4 GM CHEW TABLET PO (13:00)
[2017-03-22] MEDS ORDERED: DEXTROSE 50% 50 ML SYRINGE IV (13:00)
[2017-03-22] MEDS ORDERED: GLUCAGON FOR INJ 1 MG VIAL (J1610) SC (13:00)
[2017-03-22 13:45] LABS: BEDSIDE GLUCOSE 229 MG/DL (80-115)
[2017-03-22] MEDS: NS 1,000 ML IV (14:19)
[2017-03-22] MEDS: ZIPRASIDONE 80 MG CAP (GEODON) PO ×2 (15:44→21:29)
[2017-03-22] MEDS ORDERED: WARFARIN SOD 5 MG TAB PO (17:00)
[2017-03-22 17:29] LABS: BEDSIDE GLUCOSE 125 MG/DL (80-115)
[2017-03-22] MEDS: HumaLOG INSULIN (NovoLOG) PER UNIT SC ×2 (17:30→21:00)
[2017-03-22 21:17] LABS: BEDSIDE GLUCOSE 156 MG/DL (80-115)
[2017-03-22] MEDS: HEPARIN SOD (PORCINE) 5000 UNITS/ML VIAL SC (21:29)
[2017-03-22] MEDS: SIMVASTATIN 20 MG TAB PO (21:29)
[2017-03-22] MEDS: BENZTROPINE 0.5 MG TAB PO (21:29)
[2017-03-22] MEDS: ACETAMINOPHEN 500 MG TAB PO (21:30)
[2017-03-22] MEDS: NYSTATIN 100,000 UNITS/GM TOPICAL PWD 15 GM TOP (21:31)
[2017-03-23] MEDS: HEPARIN SOD (PORCINE) 5000 UNITS/ML VIAL SC ×3 (05:34→21:50)
[2017-03-23 07:23] LABS: HEMATOCRIT 30.3 % (42.0-52.0); HEMOGLOBIN 9.9 g/dl (14.0-18.0); MEAN CORPUSCULAR HEMOGLOBIN 29.6 pg (27.0-33.0); MEAN CORPUSCULAR HGB CONC 32.7 g/dl (32.0-36.5); MEAN CORPUSCULAR VOLUME 90.4 fl (80.0-96.0); PLATELET COUNT, AUTOMATED 268 10^3/uL (150-450); RED BLOOD COUNT 3.35 10^6/uL (4.30-6.10); RED CELL DISTRIBUTION WIDTH 14.5 % (11.5-14.5); WHITE BLOOD COUNT 17.2 10^3/uL (4.0-10.0)
[2017-03-23] MEDS: HumaLOG INSULIN (NovoLOG) PER UNIT SC ×4 (07:30→21:00)
[2017-03-23 07:47] LABS: ANION GAP 6 MEQ/L (8-16); BLOOD UREA NITROGEN 41 MG/DL (7-18); CALCIUM LEVEL 9.8 MG/DL (8.8-10.2); CARBON DIOXIDE LEVEL 27 MEQ/L (21-32); CHLORIDE LEVEL 107 MEQ/L (98-107); CREATININE FOR GFR 2.37 MG/DL (0.70-1.30); GLOMERULAR FILTRATION RATE 29.4 (>49); GLUCOSE, FASTING 105 MG/DL (80-110); SODIUM LEVEL 140 MEQ/L (136-145)
[2017-03-23 07:52] LABS: INR 1.52; PROTHROMBIN TIME 18.7 SECONDS (12.4-14.5)
[2017-03-23] MEDS: SYMBICORT 160/4.5MCG INHALER 6GM INH ×2 (08:00→20:03)
[2017-03-23] MEDS: ATENOLOL 50 MG TAB PO (08:55)
[2017-03-23] MEDS: ZIPRASIDONE 80 MG CAP (GEODON) PO ×2 (08:55→21:51)
[2017-03-23] MEDS: SENOKOT S TAB PO ×2 (08:55→21:52)
[2017-03-23] MEDS: CEFTAROLINE FOSAMIL 400 MG in APPROPRIATE DILUENT 1 EA IV ×2 (08:55→21:51)
[2017-03-23] MEDS: HALOPERIDOL 5 MG TAB PO (08:55)
[2017-03-23] MEDS: NYSTATIN 100,000 UNITS/GM TOPICAL PWD 15 GM TOP ×2 (08:56→21:00)
[2017-03-23] MEDS: GABAPENTIN 100 MG CAP PO ×3 (08:56→21:52)
[2017-03-23] MEDS: NS 1,000 ML IV ×2 (09:00→22:20)
[2017-03-23] MEDS: NS 500 ML IV (09:00)
[2017-03-23 12:00] LABS: BEDSIDE GLUCOSE 97 MG/DL (80-115)
[2017-03-23] MEDS: LIDOCAINE 1% MDV 20ML VIAL As Ordered ×2 (15:03→16:52)
[2017-03-23] MEDS: BUPIVACAINE HCL 0.5% 30 ML VIAL As Ordered (15:03)
[2017-03-23] MEDS: ACETAMINOPHEN 500 MG TAB PO (15:06)
[2017-03-23] MEDS ORDERED: PROPOFOL 200 MG/20 ML VIAL As Ordered (16:26)
[2017-03-23] MEDS ORDERED: LIDOCAINE 2% INJ 100 MG/5 ML SDV (FOR ANES.) As Ordered (16:26)
[2017-03-23] MEDS ORDERED: MIDAZOLAM INJ 2 MG/2 ML VIAL (J2250) As Ordered (16:27)
[2017-03-23] MEDS ORDERED: fentaNYL 100 MCG/2 ML INJECTION (J3010) As Ordered (16:27)
[2017-03-23 17:43] LABS: BEDSIDE GLUCOSE 78 MG/DL (80-115)
[2017-03-23] MEDS ORDERED: MORPHINE 2 MG/ML 1ML SYRINGE IV (18:45)
[2017-03-23] MEDS ORDERED: PERCOCET 5MG/325MG TAB PO (18:45)
[2017-03-23 21:21] LABS: BEDSIDE GLUCOSE 102 MG/DL (80-115)
[2017-03-23] MEDS: BENZTROPINE 0.5 MG TAB PO (21:51)
[2017-03-23] MEDS: SIMVASTATIN 20 MG TAB PO (21:51)
[2017-03-23] MEDS: PERCOCET 5MG/325MG TAB PO (22:08)
[2017-03-23] MEDS: LEVEMIR (INSULIN DETEMIR) 1 UNITS/0.01ML SC ×2 (22:30→22:55)
[2017-03-24] MEDS: HEPARIN SOD (PORCINE) 5000 UNITS/ML VIAL SC (05:02)
[2017-03-24] MEDS: PERCOCET 5MG/325MG TAB PO ×2 (05:03→22:58)
[2017-03-24 07:07] LABS: HEMATOCRIT 28.5 % (42.0-52.0); HEMOGLOBIN 9.3 g/dl (14.0-18.0); MEAN CORPUSCULAR HEMOGLOBIN 29.2 pg (27.0-33.0); MEAN CORPUSCULAR HGB CONC 32.6 g/dl (32.0-36.5); MEAN CORPUSCULAR VOLUME 89.6 fl (80.0-96.0); PLATELET COUNT, AUTOMATED 270 10^3/uL (150-450); RED BLOOD COUNT 3.18 10^6/uL (4.30-6.10); RED CELL DISTRIBUTION WIDTH 14.3 % (11.5-14.5)
[2017-03-24 07:26] LABS: ANION GAP 8 MEQ/L (8-16); BLOOD UREA NITROGEN 40 MG/DL (7-18); CALCIUM LEVEL 8.8 MG/DL (8.8-10.2); CARBON DIOXIDE LEVEL 26 MEQ/L (21-32); CHLORIDE LEVEL 104 MEQ/L (98-107); CREATININE FOR GFR 2.31 MG/DL (0.70-1.30); GLOMERULAR FILTRATION RATE 30.3 (>49); GLUCOSE, FASTING 141 MG/DL (80-110); POTASSIUM SERUM 4.2 MEQ/L (3.5-5.1); SODIUM LEVEL 138 MEQ/L (136-145)
[2017-03-24 07:30] LABS: INR 1.37; PROTHROMBIN TIME 17.1 SECONDS (12.4-14.5)
[2017-03-24] MEDS: SYMBICORT 160/4.5MCG INHALER 6GM INH ×2 (08:08→20:26)
[2017-03-24] MEDS: GABAPENTIN 100 MG CAP PO ×3 (08:25→21:34)
[2017-03-24] MEDS: HALOPERIDOL 5 MG TAB PO (08:25)
[2017-03-24] MEDS: SENOKOT S TAB PO ×2 (08:25→21:34)
[2017-03-24] MEDS: ZIPRASIDONE 80 MG CAP (GEODON) PO ×2 (08:25→21:34)
[2017-03-24] MEDS: amLODIPine 5 MG TAB PO (08:26)
[2017-03-24] MEDS: ATENOLOL 50 MG TAB PO (08:26)
[2017-03-24] MEDS: LEVEMIR (INSULIN DETEMIR) 1 UNITS/0.01ML SC ×2 (08:27→21:34)
[2017-03-24] MEDS: ENOXAPARIN 100MG/1ML SYRINGE (J1650) SC (08:27)
[2017-03-24] MEDS: HumaLOG INSULIN (NovoLOG) PER UNIT SC ×4 (08:27→21:00)
[2017-03-24] MEDS: NYSTATIN 100,000 UNITS/GM TOPICAL PWD 15 GM TOP ×2 (08:28→21:00)
[2017-03-24] MEDS: CEFTAROLINE FOSAMIL 400 MG in APPROPRIATE DILUENT 1 EA IV ×2 (08:28→21:35)
[2017-03-24 12:16] LABS: BEDSIDE GLUCOSE 188 MG/DL (80-115)
[2017-03-24 16:51] LABS: BEDSIDE GLUCOSE 153 MG/DL (80-115)
[2017-03-24 20:56] LABS: BEDSIDE GLUCOSE 198 MG/DL (80-115)
[2017-03-24] MEDS: SIMVASTATIN 20 MG TAB PO (21:34)
[2017-03-24] MEDS: BENZTROPINE 0.5 MG TAB PO (21:34)
[2017-03-25 06:05] LABS: HEMATOCRIT 28.4 % (42.0-52.0); HEMOGLOBIN 9.1 g/dl (14.0-18.0); MEAN CORPUSCULAR HEMOGLOBIN 29.1 pg (27.0-33.0); MEAN CORPUSCULAR VOLUME 90.7 fl (80.0-96.0); PLATELET COUNT, AUTOMATED 307 10^3/uL (150-450); RED BLOOD COUNT 3.13 10^6/uL (4.30-6.10); RED CELL DISTRIBUTION WIDTH 14.4 % (11.5-14.5); WHITE BLOOD COUNT 17.4 10^3/uL (4.0-10.0)
[2017-03-25 06:15] LABS: INR 1.18; PROTHROMBIN TIME 15.2 SECONDS (12.4-14.5)
[2017-03-25 06:27] LABS: ANION GAP 7 MEQ/L (8-16); BLOOD UREA NITROGEN 42 MG/DL (7-18); CALCIUM LEVEL 9.2 MG/DL (8.8-10.2); CARBON DIOXIDE LEVEL 27 MEQ/L (21-32); CHLORIDE LEVEL 106 MEQ/L (98-107); CREATININE FOR GFR 2.58 MG/DL (0.70-1.30); GLOMERULAR FILTRATION RATE 26.7 (>49); GLUCOSE, FASTING 73 MG/DL (80-110); POTASSIUM SERUM 3.8 MEQ/L (3.5-5.1); SODIUM LEVEL 140 MEQ/L (136-145)
[2017-03-25] MEDS: HumaLOG INSULIN (NovoLOG) PER UNIT SC ×4 (07:10→21:00)
[2017-03-25] MEDS: SYMBICORT 160/4.5MCG INHALER 6GM INH ×2 (07:14→19:40)
[2017-03-25] MEDS: ENOXAPARIN 100MG/1ML SYRINGE (J1650) SC (08:45)
[2017-03-25] MEDS: LEVEMIR (INSULIN DETEMIR) 1 UNITS/0.01ML SC ×2 (08:45→21:23)
[2017-03-25] MEDS: amLODIPine 5 MG TAB PO (08:46)
[2017-03-25] MEDS: SENOKOT S TAB PO ×2 (08:46→21:17)
[2017-03-25] MEDS: ZIPRASIDONE 80 MG CAP (GEODON) PO ×2 (08:46→21:18)
[2017-03-25] MEDS: GABAPENTIN 100 MG CAP PO ×3 (08:46→21:18)
[2017-03-25] MEDS: ATENOLOL 50 MG TAB PO (08:46)
[2017-03-25] MEDS: HALOPERIDOL 5 MG TAB PO (08:46)
[2017-03-25] MEDS: PERCOCET 5MG/325MG TAB PO (09:05)
[2017-03-25] MEDS: VANCOMYCIN HCL 1,000 MG, VIAL MATE ADAPTER 1 EACH in D5W 250 ML IV ×2 (09:05→11:22)
[2017-03-25] MEDS: NYSTATIN 100,000 UNITS/GM TOPICAL PWD 15 GM TOP ×2 (09:05→21:18)
[2017-03-25] MEDS: PIPERACILLIN/TAZOBACTAM SOD 2.25 GM in APPROPRIATE DILUENT 1 EA IV ×2 (10:33→22:00)
[2017-03-25 11:50] LABS: BEDSIDE GLUCOSE 100 MG/DL (80-115)
[2017-03-25] MEDS: NS 1,000 ML IV (15:17)
[2017-03-25 16:26] LABS: BEDSIDE GLUCOSE 154 MG/DL (80-115)
[2017-03-25 20:34] LABS: BEDSIDE GLUCOSE 137 MG/DL (80-115)
[2017-03-25] MEDS: BENZTROPINE 0.5 MG TAB PO (21:18)
[2017-03-25] MEDS: SIMVASTATIN 20 MG TAB PO (21:18)
[2017-03-25] MEDS: MORPHINE 2 MG/ML 1ML SYRINGE IV (21:39)
[2017-03-26] MEDS: PIPERACILLIN/TAZOBACTAM SOD 2.25 GM in APPROPRIATE DILUENT 1 EA IV ×4 (04:33→20:57)
[2017-03-26 06:06] LABS: HEMATOCRIT 28.7 % (42.0-52.0); HEMOGLOBIN 9.1 g/dl (14.0-18.0); MEAN CORPUSCULAR HEMOGLOBIN 28.7 pg (27.0-33.0); MEAN CORPUSCULAR HGB CONC 31.7 g/dl (32.0-36.5); MEAN CORPUSCULAR VOLUME 90.5 fl (80.0-96.0); PLATELET COUNT, AUTOMATED 266 10^3/uL (150-450); RED BLOOD COUNT 3.17 10^6/uL (4.30-6.10); RED CELL DISTRIBUTION WIDTH 14.4 % (11.5-14.5); WHITE BLOOD COUNT 13.6 10^3/uL (4.0-10.0)
[2017-03-26 06:21] LABS: INR 1.15; PROTHROMBIN TIME 14.9 SECONDS (12.4-14.5)
[2017-03-26 06:24] LABS: ANION GAP 5 MEQ/L (8-16); BLOOD UREA NITROGEN 41 MG/DL (7-18); CALCIUM LEVEL 8.6 MG/DL (8.8-10.2); CARBON DIOXIDE LEVEL 28 MEQ/L (21-32); CHLORIDE LEVEL 106 MEQ/L (98-107); CREATININE FOR GFR 2.59 MG/DL (0.70-1.30); GLOMERULAR FILTRATION RATE 26.5 (>49); GLUCOSE, FASTING 93 MG/DL (80-110); POTASSIUM SERUM 3.9 MEQ/L (3.5-5.1); SODIUM LEVEL 139 MEQ/L (136-145)
[2017-03-26] MEDS: HumaLOG INSULIN (NovoLOG) PER UNIT SC ×4 (07:34→20:37)
[2017-03-26] MEDS: ENOXAPARIN 100MG/1ML SYRINGE (J1650) SC (07:34)
[2017-03-26] MEDS: BUPIVACAINE HCL 0.5% 10 ML VIAL As Ordered (07:51)
[2017-03-26] MEDS: amLODIPine 5 MG TAB PO (07:52)
[2017-03-26] MEDS: SYMBICORT 160/4.5MCG INHALER 6GM INH ×2 (08:00→21:15)
[2017-03-26] MEDS: VANCOMYCIN HCL 1,000 MG, VIAL MATE ADAPTER 1 EACH in D5W 250 ML IV (08:38)
[2017-03-26 08:39] LABS: BEDSIDE GLUCOSE 87 MG/DL (80-115)
[2017-03-26] MEDS: LIDOCAINE 1% MDV 20ML VIAL As Ordered ×2 (08:44→08:52)
[2017-03-26] MEDS ORDERED: fentaNYL 100 MCG/2 ML INJECTION (J3010) As Ordered (09:48)
[2017-03-26] MEDS ORDERED: PROPOFOL 200 MG/20 ML VIAL As Ordered ×3 (09:48→09:54)
[2017-03-26] MEDS ORDERED: MIDAZOLAM INJ 2 MG/2 ML VIAL (J2250) As Ordered (09:48)
[2017-03-26] MEDS ORDERED: LIDOCAINE 2% INJ 100 MG/5 ML SDV (FOR ANES.) As Ordered (09:54)
[2017-03-26] MEDS ORDERED: PERCOCET 5MG/325MG TAB As Ordered (10:39)
[2017-03-26] MEDS: PERCOCET 5MG/325MG TAB PO ×2 (10:41→14:51)
[2017-03-26] MEDS ORDERED: ONDANSETRON 4MG/2ML VIAL (J2405) IV (10:45)
[2017-03-26] MEDS ORDERED: fentaNYL 100 MCG/2 ML INJECTION (J3010) IV (10:45)
[2017-03-26] MEDS: LR 1,000 ML IV (11:12)
[2017-03-26] MEDS: ATENOLOL 50 MG TAB PO (11:17)
[2017-03-26] MEDS: LEVEMIR (INSULIN DETEMIR) 1 UNITS/0.01ML SC ×2 (11:18→20:57)
[2017-03-26] MEDS: SENOKOT S TAB PO ×2 (11:24→20:56)
[2017-03-26] MEDS: GABAPENTIN 100 MG CAP PO ×3 (11:24→20:56)
[2017-03-26] MEDS: ZIPRASIDONE 80 MG CAP (GEODON) PO ×2 (11:24→20:56)
[2017-03-26] MEDS: BISACODYL 5 MG TAB PO (11:24)
[2017-03-26 11:26] LABS: BEDSIDE GLUCOSE 114 MG/DL (80-115)
[2017-03-26 11:29] LABS: BEDSIDE GLUCOSE 111 MG/DL (80-115)
[2017-03-26] MEDS: HALOPERIDOL 5 MG TAB PO (11:29)
[2017-03-26] MEDS: NYSTATIN 100,000 UNITS/GM TOPICAL PWD 15 GM TOP ×2 (11:29→20:57)
[2017-03-26 16:38] LABS: BEDSIDE GLUCOSE 135 MG/DL (80-115)
[2017-03-26 20:33] LABS: BEDSIDE GLUCOSE 140 MG/DL (80-115)
[2017-03-26] MEDS ORDERED: BISACODYL ENEMA 10 MG/30 ML PR (20:45)
[2017-03-26] MEDS: BENZTROPINE 0.5 MG TAB PO (20:56)
[2017-03-26] MEDS: MIRALAX *UNIT DOSE* 17GM PACKET PO (20:56)
[2017-03-26] MEDS: SIMVASTATIN 20 MG TAB PO (20:56)
[2017-03-27] MEDS: PIPERACILLIN/TAZOBACTAM SOD 2.25 GM in APPROPRIATE DILUENT 1 EA IV ×4 (04:00→22:08)
[2017-03-27 06:11] LABS: HEMATOCRIT 27.1 % (42.0-52.0); HEMOGLOBIN 8.5 g/dl (14.0-18.0); MEAN CORPUSCULAR HEMOGLOBIN 28.8 pg (27.0-33.0); MEAN CORPUSCULAR HGB CONC 31.4 g/dl (32.0-36.5); MEAN CORPUSCULAR VOLUME 91.9 fl (80.0-96.0); PLATELET COUNT, AUTOMATED 256 10^3/uL (150-450); RED BLOOD COUNT 2.95 10^6/uL (4.30-6.10); RED CELL DISTRIBUTION WIDTH 14.4 % (11.5-14.5); WHITE BLOOD COUNT 12.1 10^3/uL (4.0-10.0)
[2017-03-27 06:24] LABS: INR 1.19; PROTHROMBIN TIME 15.3 SECONDS (12.4-14.5)
[2017-03-27 06:31] LABS: ANION GAP 7 MEQ/L (8-16); BLOOD UREA NITROGEN 40 MG/DL (7-18); CARBON DIOXIDE LEVEL 27 MEQ/L (21-32); CHLORIDE LEVEL 105 MEQ/L (98-107); GLOMERULAR FILTRATION RATE 25.3 (>49); GLUCOSE, FASTING 157 MG/DL (80-110); POTASSIUM SERUM 3.9 MEQ/L (3.5-5.1); SODIUM LEVEL 139 MEQ/L (136-145)
[2017-03-27] MEDS: SYMBICORT 160/4.5MCG INHALER 6GM INH ×2 (07:36→21:29)
[2017-03-27] MEDS: GABAPENTIN 100 MG CAP PO ×3 (09:30→22:08)
[2017-03-27] MEDS: ZIPRASIDONE 80 MG CAP (GEODON) PO ×2 (09:30→22:08)
[2017-03-27] MEDS: MOM 30ML SUSPENSION UDC PO (09:30)
[2017-03-27] MEDS: SENOKOT S TAB PO ×2 (09:30→22:08)
[2017-03-27] MEDS: HALOPERIDOL 5 MG TAB PO (09:31)
[2017-03-27] MEDS: LEVEMIR (INSULIN DETEMIR) 1 UNITS/0.01ML SC ×2 (09:31→22:07)
[2017-03-27] MEDS: VANCOMYCIN HCL 1,000 MG, VIAL MATE ADAPTER 1 EACH in D5W 250 ML IV (09:31)
[2017-03-27] MEDS: BISACODYL 5 MG TAB PO (09:31)
[2017-03-27] MEDS: ENOXAPARIN 100MG/1ML SYRINGE (J1650) SC (09:32)
[2017-03-27] MEDS: HumaLOG INSULIN (NovoLOG) PER UNIT SC ×4 (09:32→20:49)
[2017-03-27] MEDS: NYSTATIN 100,000 UNITS/GM TOPICAL PWD 15 GM TOP ×2 (09:32→22:09)
[2017-03-27] MEDS: ATENOLOL 50 MG TAB PO (09:36)
[2017-03-27] MEDS: amLODIPine 5 MG TAB PO (09:36)
[2017-03-27] MEDS: PERCOCET 5MG/325MG TAB PO ×2 (11:22→18:23)
[2017-03-27 11:57] LABS: BEDSIDE GLUCOSE 271 MG/DL (80-115)
[2017-03-27 16:47] LABS: BEDSIDE GLUCOSE 161 MG/DL (80-115)
[2017-03-27] MEDS: WARFARIN SOD 5 MG TAB PO (16:54)
[2017-03-27 20:41] LABS: BEDSIDE GLUCOSE 157 MG/DL (80-115)
[2017-03-27] MEDS: SIMVASTATIN 20 MG TAB PO (22:07)
[2017-03-27] MEDS: BENZTROPINE 0.5 MG TAB PO (22:08)
[2017-03-28] MEDS: PIPERACILLIN/TAZOBACTAM SOD 2.25 GM in APPROPRIATE DILUENT 1 EA IV ×4 (03:45→22:49)
[2017-03-28] MEDS: ACETAMINOPHEN 500 MG TAB PO (05:07)
[2017-03-28 05:35] LABS: HEMATOCRIT 26.1 % (42.0-52.0); HEMOGLOBIN 8.3 g/dl (14.0-18.0); MEAN CORPUSCULAR HEMOGLOBIN 29.1 pg (27.0-33.0); MEAN CORPUSCULAR HGB CONC 31.8 g/dl (32.0-36.5); MEAN CORPUSCULAR VOLUME 91.6 fl (80.0-96.0); PLATELET COUNT, AUTOMATED 252 10^3/uL (150-450); RED BLOOD COUNT 2.85 10^6/uL (4.30-6.10); RED CELL DISTRIBUTION WIDTH 14.3 % (11.5-14.5); WHITE BLOOD COUNT 12.2 10^3/uL (4.0-10.0)
[2017-03-28 05:45] LABS: INR 1.16
[2017-03-28 05:53] LABS: ANION GAP 8 MEQ/L (8-16); BLOOD UREA NITROGEN 38 MG/DL (7-18); CALCIUM LEVEL 8.4 MG/DL (8.8-10.2); CARBON DIOXIDE LEVEL 27 MEQ/L (21-32); CHLORIDE LEVEL 105 MEQ/L (98-107); CREATININE FOR GFR 2.88 MG/DL (0.70-1.30); GLOMERULAR FILTRATION RATE 23.5 (>49); GLUCOSE, FASTING 131 MG/DL (80-110); SODIUM LEVEL 140 MEQ/L (136-145)
[2017-03-28] MEDS: SYMBICORT 160/4.5MCG INHALER 6GM INH ×3 (07:21→20:00)
[2017-03-28] MEDS: HALOPERIDOL 5 MG TAB PO (08:25)
[2017-03-28] MEDS: MOM 30ML SUSPENSION UDC PO (08:25)
[2017-03-28] MEDS: amLODIPine 5 MG TAB PO (08:26)
[2017-03-28] MEDS: MIRALAX *UNIT DOSE* 17GM PACKET PO (08:26)
[2017-03-28] MEDS: SENOKOT S TAB PO ×2 (08:26→21:03)
[2017-03-28] MEDS: ZIPRASIDONE 80 MG CAP (GEODON) PO ×2 (08:26→21:04)
[2017-03-28] MEDS: BISACODYL 5 MG TAB PO (08:26)
[2017-03-28] MEDS: GABAPENTIN 100 MG CAP PO ×3 (08:26→21:03)
[2017-03-28] MEDS: HumaLOG INSULIN (NovoLOG) PER UNIT SC ×4 (08:27→20:40)
[2017-03-28] MEDS: LEVEMIR (INSULIN DETEMIR) 1 UNITS/0.01ML SC ×2 (08:27→21:06)
[2017-03-28] MEDS: ENOXAPARIN 100MG/1ML SYRINGE (J1650) SC (08:28)
[2017-03-28] MEDS: ATENOLOL 50 MG TAB PO (08:28)
[2017-03-28] MEDS: NYSTATIN 100,000 UNITS/GM TOPICAL PWD 15 GM TOP ×2 (08:29→21:05)
[2017-03-28 09:03] LABS: VANCOMYCIN LEVEL TROUGH 18.3 UG/ML (10.0-20.0)
[2017-03-28] MEDS: SODIUM CHLORIDE NASAL 0.65% SPRAY BTL (OCEAN) ×3 (09:17→21:04)
[2017-03-28] MEDS: VANCOMYCIN HCL 1,000 MG, VIAL MATE ADAPTER 1 EACH in D5W 250 ML IV (09:17)
[2017-03-28 11:55] LABS: BEDSIDE GLUCOSE 222 MG/DL (80-115)
[2017-03-28 13:33] LABS: APPEARANCE, URINE CLEAR (CLEAR); BACTERIA, URINE AUTO NEGATIVE (NEGATIVE); BILIRUBIN, URINE AUTO NEGATIVE (NEGATIVE); BLOOD, URINE BLOOD NEGATIVE (NEGATIVE); COLOR, URINE YELLOW (YELLOW); GLUCOSE, URINE (UA) AUTO 1+ mg/dL (NEGATIVE); KETONE, URINE AUTO NEGATIVE (NEGATIVE); LEUKOCYTE ESTERASE, URINE AUTO NEGATIVE (NEGATIVE); MUCUS, URINE SMALL (NEGATIVE); NITRITE, URINE AUTO NEGATIVE (NEGATIVE); PROTEIN, URINE AUTO 2+ mg/dL (NEGATIVE); RBC, URINE AUTO 2 /HPF (0-3); SPECIFIC GRAVITY URINE AUTO 1.008 (1.002-1.035); SQUAMOUS EPITHELIAL CELL UR AU 0 /HPF (0-6); UROBILINOGEN, URINE AUTO 0.2 mg/dL (0.0-2.0); WBC, URINE AUTO 0 /HPF (0-3)
[2017-03-28] MEDS: WARFARIN SOD 5 MG TAB PO (16:14)
[2017-03-28 16:42] LABS: BEDSIDE GLUCOSE 102 MG/DL (80-115)
[2017-03-28] MEDS: NS 1,000 ML IV (17:34)
[2017-03-28] MEDS: PERCOCET 5MG/325MG TAB PO (17:49)
[2017-03-28 20:26] LABS: BEDSIDE GLUCOSE 176 MG/DL (80-115)
[2017-03-28] MEDS: SIMVASTATIN 20 MG TAB PO (21:03)
[2017-03-28] MEDS: BENZTROPINE 0.5 MG TAB PO (21:04)
[2017-03-29] MEDS: ACETAMINOPHEN 500 MG TAB PO (02:56)
[2017-03-29] MEDS: PIPERACILLIN/TAZOBACTAM SOD 2.25 GM in APPROPRIATE DILUENT 1 EA IV ×4 (04:07→21:56)
[2017-03-29 06:20] LABS: HEMATOCRIT 25.2 % (42.0-52.0); MEAN CORPUSCULAR HGB CONC 31.7 g/dl (32.0-36.5); MEAN CORPUSCULAR VOLUME 91.3 fl (80.0-96.0); PLATELET COUNT, AUTOMATED 268 10^3/uL (150-450); RED BLOOD COUNT 2.76 10^6/uL (4.30-6.10); RED CELL DISTRIBUTION WIDTH 14.4 % (11.5-14.5); WHITE BLOOD COUNT 12.9 10^3/uL (4.0-10.0)
[2017-03-29 06:28] LABS: INR 1.16; PROTHROMBIN TIME 15.1 SECONDS (12.4-14.5)
[2017-03-29 06:45] LABS: ANION GAP 8 MEQ/L (8-16); BLOOD UREA NITROGEN 37 MG/DL (7-18); CALCIUM LEVEL 7.9 MG/DL (8.8-10.2); CARBON DIOXIDE LEVEL 26 MEQ/L (21-32); CHLORIDE LEVEL 106 MEQ/L (98-107); CREATININE FOR GFR 2.83 MG/DL (0.70-1.30); GLUCOSE, FASTING 154 MG/DL (80-110); POTASSIUM SERUM 4.1 MEQ/L (3.5-5.1); SODIUM LEVEL 140 MEQ/L (136-145)
[2017-03-29] MEDS: NS 1,000 ML IV (07:29)
[2017-03-29] MEDS: HumaLOG INSULIN (NovoLOG) PER UNIT SC ×4 (08:33→20:33)
[2017-03-29] MEDS: HALOPERIDOL 5 MG TAB PO (08:34)
[2017-03-29] MEDS: LEVEMIR (INSULIN DETEMIR) 1 UNITS/0.01ML SC ×2 (08:34→21:11)
[2017-03-29] MEDS: ENOXAPARIN 100MG/1ML SYRINGE (J1650) SC (08:34)
[2017-03-29] MEDS: GABAPENTIN 100 MG CAP PO ×3 (08:34→21:10)
[2017-03-29] MEDS: SENOKOT S TAB PO ×2 (08:35→21:10)
[2017-03-29] MEDS: ATENOLOL 50 MG TAB PO (08:35)
[2017-03-29] MEDS: ZIPRASIDONE 80 MG CAP (GEODON) PO ×2 (08:35→21:10)
[2017-03-29] MEDS: amLODIPine 5 MG TAB PO (08:35)
[2017-03-29] MEDS: NYSTATIN 100,000 UNITS/GM TOPICAL PWD 15 GM TOP ×2 (08:36→21:12)
[2017-03-29] MEDS: SODIUM CHLORIDE NASAL 0.65% SPRAY BTL (OCEAN) ×3 (08:36→21:11)
[2017-03-29] MEDS ORDERED: VANCOMYCIN HCL 750 MG, VIAL MATE ADAPTER 1 EACH in D5W 250 ML IV (09:00)
[2017-03-29] MEDS: SYMBICORT 160/4.5MCG INHALER 6GM INH ×2 (09:01→21:38)
[2017-03-29] MEDS: PERCOCET 5MG/325MG TAB PO (11:28)
[2017-03-29 11:49] LABS: BEDSIDE GLUCOSE 135 MG/DL (80-115)
[2017-03-29] MEDS: NS 0.45% 1,000 ML IV (12:47)
[2017-03-29] MEDS: MORPHINE 2 MG/ML 1ML SYRINGE IV (12:47)
[2017-03-29 16:54] LABS: C REACTIVE PROTEIN QUANTITATIV 8.04 MG/DL (0.00-0.30)
[2017-03-29 17:14] LABS: BEDSIDE GLUCOSE 171 MG/DL (80-115)
[2017-03-29] MEDS: WARFARIN SOD 7.5 MG TAB PO (17:42)
[2017-03-29 20:21] LABS: BEDSIDE GLUCOSE 140 MG/DL (80-115)
[2017-03-29] MEDS: BENZTROPINE 0.5 MG TAB PO (21:10)
[2017-03-29] MEDS: SIMVASTATIN 20 MG TAB PO (21:10)
[2017-03-30] MEDS: NS 0.45% 1,000 ML IV (03:28)
[2017-03-30] MEDS: PIPERACILLIN/TAZOBACTAM SOD 2.25 GM in APPROPRIATE DILUENT 1 EA IV ×5 (04:17→21:57)
[2017-03-30 06:52] LABS: BASO # 0.1 10^3/uL (0.0-0.2); BASO % 0.6 % (0.0-1.0); EOS # 0.4 10^3/uL (0.0-0.50); EOS % 3.7 % (0.0-3.0); HEMATOCRIT 25.6 % (42.0-52.0); HEMOGLOBIN 8.1 g/dl (14.0-18.0); IMMATURE GRANULOCYTE # 0.2 10^3/uL (0-0); IMMATURE GRANULOCYTE % 2.1 % (0-0); LYMPH # 1.3 10^3/uL (1.5-4.5); LYMPH % 11.4 % (24.0-44.0); MEAN CORPUSCULAR HEMOGLOBIN 28.9 pg (27.0-33.0); MEAN CORPUSCULAR HGB CONC 31.6 g/dl (32.0-36.5); MEAN CORPUSCULAR VOLUME 91.4 fl (80.0-96.0); MONO # 0.9 10^3/uL (0.0-0.8); MONO % 8.3 % (0.0-5.0); NEUTROPHILS # 8.4 10^3/uL (1.8-7.7); NEUTROPHILS % 73.9 % (36.0-66.0); PLATELET COUNT, AUTOMATED 285 10^3/uL (150-450); RED CELL DISTRIBUTION WIDTH 14.4 % (11.5-14.5); WHITE BLOOD COUNT 11.3 10^3/uL (4.0-10.0)
[2017-03-30 07:07] LABS: ANION GAP 5 MEQ/L (8-16); BLOOD UREA NITROGEN 34 MG/DL (7-18); CALCIUM LEVEL 8.4 MG/DL (8.8-10.2); CARBON DIOXIDE LEVEL 27 MEQ/L (21-32); CHLORIDE LEVEL 108 MEQ/L (98-107); GLUCOSE, FASTING 154 MG/DL (80-110); SODIUM LEVEL 140 MEQ/L (136-145)
[2017-03-30 07:36] LABS: INR 1.12; PROTHROMBIN TIME 14.6 SECONDS (12.4-14.5)
[2017-03-30] MEDS: SYMBICORT 160/4.5MCG INHALER 6GM INH ×2 (07:41→21:44)
[2017-03-30] MEDS: HumaLOG INSULIN (NovoLOG) PER UNIT SC ×4 (10:09→21:00)
[2017-03-30] MEDS: ENOXAPARIN 100MG/1ML SYRINGE (J1650) SC (10:10)
[2017-03-30] MEDS: LEVEMIR (INSULIN DETEMIR) 1 UNITS/0.01ML SC ×2 (10:10→21:57)
[2017-03-30] MEDS: SENOKOT S TAB PO ×2 (10:11→21:56)
[2017-03-30] MEDS: SODIUM CHLORIDE NASAL 0.65% SPRAY BTL (OCEAN) ×3 (10:11→21:57)
[2017-03-30] MEDS: NYSTATIN 100,000 UNITS/GM TOPICAL PWD 15 GM TOP ×2 (10:11→21:57)
[2017-03-30] MEDS: ZIPRASIDONE 80 MG CAP (GEODON) PO ×2 (10:12→21:56)
[2017-03-30] MEDS: GABAPENTIN 100 MG CAP PO ×3 (10:12→21:56)
[2017-03-30] MEDS: amLODIPine 5 MG TAB PO (10:12)
[2017-03-30] MEDS: ATENOLOL 50 MG TAB PO (10:13)
[2017-03-30] MEDS: HALOPERIDOL 5 MG TAB PO (10:15)
[2017-03-30 11:59] LABS: BEDSIDE GLUCOSE 265 MG/DL (80-115)
[2017-03-30 16:41] LABS: BEDSIDE GLUCOSE 207 MG/DL (80-115)
[2017-03-30 20:37] LABS: BEDSIDE GLUCOSE 164 MG/DL (80-115)
[2017-03-30] MEDS: SIMVASTATIN 20 MG TAB PO (21:56)
[2017-03-30] MEDS: BENZTROPINE 0.5 MG TAB PO (21:56)
[2017-03-30] MEDS: PERCOCET 5MG/325MG TAB PO (23:36)
[2017-03-31] MEDS: MORPHINE 2 MG/ML 1ML SYRINGE IV (03:49)
[2017-03-31] MEDS: PIPERACILLIN/TAZOBACTAM SOD 2.25 GM in APPROPRIATE DILUENT 1 EA IV ×4 (03:49→22:00)
[2017-03-31 07:04] LABS: BASO # 0.1 10^3/uL (0.0-0.2); BASO % 0.5 % (0.0-1.0); EOS # 0.4 10^3/uL (0.0-0.50); EOS % 3.7 % (0.0-3.0); HEMATOCRIT 25.8 % (42.0-52.0); HEMOGLOBIN 8.1 g/dl (14.0-18.0); IMMATURE GRANULOCYTE # 0.2 10^3/uL (0-0); IMMATURE GRANULOCYTE % 2.2 % (0-0); LYMPH # 1.9 10^3/uL (1.5-4.5); LYMPH % 16.7 % (24.0-44.0); MEAN CORPUSCULAR HEMOGLOBIN 28.8 pg (27.0-33.0); MEAN CORPUSCULAR HGB CONC 31.4 g/dl (32.0-36.5); MEAN CORPUSCULAR VOLUME 91.8 fl (80.0-96.0); MONO # 0.9 10^3/uL (0.0-0.8); MONO % 8.3 % (0.0-5.0); NEUTROPHILS # 7.6 10^3/uL (1.8-7.7); NEUTROPHILS % 68.6 % (36.0-66.0); PLATELET COUNT, AUTOMATED 257 10^3/uL (150-450); RED BLOOD COUNT 2.81 10^6/uL (4.30-6.10); RED CELL DISTRIBUTION WIDTH 14.3 % (11.5-14.5); WHITE BLOOD COUNT 11.1 10^3/uL (4.0-10.0)
[2017-03-31 07:11] LABS: BEDSIDE GLUCOSE 314 MG/DL (80-115)
[2017-03-31 07:12] LABS: INR 1.32; PROTHROMBIN TIME 16.7 SECONDS (12.4-14.5)
[2017-03-31 07:16] LABS: ANION GAP 8 MEQ/L (8-16); BLOOD UREA NITROGEN 28 MG/DL (7-18); CALCIUM LEVEL 8.3 MG/DL (8.8-10.2); CARBON DIOXIDE LEVEL 26 MEQ/L (21-32); CHLORIDE LEVEL 108 MEQ/L (98-107); CREATININE FOR GFR 2.28 MG/DL (0.70-1.30); GLOMERULAR FILTRATION RATE 30.7 (>49); GLUCOSE, FASTING 95 MG/DL (80-110); SODIUM LEVEL 142 MEQ/L (136-145)
[2017-03-31] MEDS: HumaLOG INSULIN (NovoLOG) PER UNIT SC ×5 (07:30→20:15)
[2017-03-31] MEDS: SYMBICORT 160/4.5MCG INHALER 6GM INH ×2 (08:50→22:13)
[2017-03-31] MEDS: GABAPENTIN 100 MG CAP PO ×3 (08:53→20:13)
[2017-03-31] MEDS: HALOPERIDOL 5 MG TAB PO (08:54)
[2017-03-31] MEDS: ATENOLOL 50 MG TAB PO (08:54)
[2017-03-31] MEDS: amLODIPine 5 MG TAB PO (08:54)
[2017-03-31] MEDS: SENOKOT S TAB PO ×2 (08:54→20:13)
[2017-03-31] MEDS: ENOXAPARIN 100MG/1ML SYRINGE (J1650) SC (08:55)
[2017-03-31] MEDS: LEVEMIR (INSULIN DETEMIR) 1 UNITS/0.01ML SC ×2 (08:55→20:14)
[2017-03-31] MEDS: NYSTATIN 100,000 UNITS/GM TOPICAL PWD 15 GM TOP ×2 (09:01→20:15)
[2017-03-31] MEDS: ZIPRASIDONE 80 MG CAP (GEODON) PO ×2 (09:01→20:14)
[2017-03-31] MEDS: SODIUM CHLORIDE NASAL 0.65% SPRAY BTL (OCEAN) ×3 (09:01→20:15)
[2017-03-31 11:55] LABS: BEDSIDE GLUCOSE 124 MG/DL (80-115)
[2017-03-31 16:41] LABS: BEDSIDE GLUCOSE 114 MG/DL (80-115)
[2017-03-31 20:09] LABS: BEDSIDE GLUCOSE 128 MG/DL (80-115)
[2017-03-31] MEDS: SIMVASTATIN 20 MG TAB PO (20:14)
[2017-03-31] MEDS: PERCOCET 5MG/325MG TAB PO (20:14)
[2017-03-31] MEDS: BENZTROPINE 0.5 MG TAB PO (20:14)
[2017-03-31 23:53] LABS: BEDSIDE GLUCOSE 171 MG/DL (80-115)
[2017-04-01] MEDS: PIPERACILLIN/TAZOBACTAM SOD 2.25 GM in APPROPRIATE DILUENT 1 EA IV ×4 (03:34→21:40)
[2017-04-01] MEDS: PERCOCET 5MG/325MG TAB PO ×2 (06:23→21:44)
[2017-04-01 07:04] LABS: BASO # 0.1 10^3/uL (0.0-0.2); BASO % 0.7 % (0.0-1.0); EOS # 0.4 10^3/uL (0.0-0.50); EOS % 3.8 % (0.0-3.0); HEMATOCRIT 26.7 % (42.0-52.0); HEMOGLOBIN 8.3 g/dl (14.0-18.0); IMMATURE GRANULOCYTE # 0.2 10^3/uL (0-0); IMMATURE GRANULOCYTE % 1.8 % (0-0); LYMPH # 1.7 10^3/uL (1.5-4.5); LYMPH % 16.2 % (24.0-44.0); MEAN CORPUSCULAR HEMOGLOBIN 28.2 pg (27.0-33.0); MEAN CORPUSCULAR HGB CONC 31.1 g/dl (32.0-36.5); MEAN CORPUSCULAR VOLUME 90.8 fl (80.0-96.0); MONO # 0.9 10^3/uL (0.0-0.8); MONO % 8.9 % (0.0-5.0); NEUTROPHILS # 7.1 10^3/uL (1.8-7.7); NEUTROPHILS % 68.6 % (36.0-66.0); PLATELET COUNT, AUTOMATED 275 10^3/uL (150-450); RED BLOOD COUNT 2.94 10^6/uL (4.30-6.10); RED CELL DISTRIBUTION WIDTH 14.6 % (11.5-14.5); WHITE BLOOD COUNT 10.4 10^3/uL (4.0-10.0)
[2017-04-01 07:21] LABS: ANION GAP 8 MEQ/L (8-16); BLOOD UREA NITROGEN 28 MG/DL (7-18); CALCIUM LEVEL 8.6 MG/DL (8.8-10.2); CARBON DIOXIDE LEVEL 28 MEQ/L (21-32); CHLORIDE LEVEL 104 MEQ/L (98-107); CREATININE FOR GFR 2.33 MG/DL (0.70-1.30); GLUCOSE, FASTING 136 MG/DL (80-110); POTASSIUM SERUM 4.1 MEQ/L (3.5-5.1); SODIUM LEVEL 140 MEQ/L (136-145)
[2017-04-01 07:28] LABS: PROTHROMBIN TIME 15.4 SECONDS (12.4-14.5)
[2017-04-01] MEDS: SYMBICORT 160/4.5MCG INHALER 6GM INH ×2 (07:58→21:26)
[2017-04-01] MEDS: GABAPENTIN 100 MG CAP PO ×3 (08:51→21:39)
[2017-04-01] MEDS: ATENOLOL 50 MG TAB PO (08:51)
[2017-04-01] MEDS: ENOXAPARIN 100MG/1ML SYRINGE (J1650) SC (08:51)
[2017-04-01] MEDS: amLODIPine 5 MG TAB PO (08:51)
[2017-04-01] MEDS: HALOPERIDOL 5 MG TAB PO (08:51)
[2017-04-01] MEDS: SENOKOT S TAB PO ×2 (08:51→21:41)
[2017-04-01] MEDS: LEVEMIR (INSULIN DETEMIR) 1 UNITS/0.01ML SC ×2 (08:52→21:39)
[2017-04-01] MEDS: HumaLOG INSULIN (NovoLOG) PER UNIT SC ×4 (08:52→20:49)
[2017-04-01] MEDS: SODIUM CHLORIDE NASAL 0.65% SPRAY BTL (OCEAN) ×3 (09:02→21:39)
[2017-04-01] MEDS: ZIPRASIDONE 80 MG CAP (GEODON) PO ×2 (09:03→21:39)
[2017-04-01] MEDS: NYSTATIN 100,000 UNITS/GM TOPICAL PWD 15 GM TOP ×2 (09:03→21:40)
[2017-04-01 11:47] LABS: BEDSIDE GLUCOSE 208 MG/DL (80-115)
[2017-04-01 17:02] LABS: BEDSIDE GLUCOSE 122 MG/DL (80-115)
[2017-04-01 20:55] LABS: BEDSIDE GLUCOSE 169 MG/DL (80-115)
[2017-04-01] MEDS: SIMVASTATIN 20 MG TAB PO (21:39)
[2017-04-01] MEDS: BENZTROPINE 0.5 MG TAB PO (21:39)
[2017-04-02] MEDS: PIPERACILLIN/TAZOBACTAM SOD 2.25 GM in APPROPRIATE DILUENT 1 EA IV ×4 (04:14→21:33)
[2017-04-02 06:02] LABS: BASO # 0.1 10^3/uL (0.0-0.2); BASO % 0.6 % (0.0-1.0); EOS # 0.4 10^3/uL (0.0-0.50); EOS % 4.3 % (0.0-3.0); HEMATOCRIT 26.2 % (42.0-52.0); HEMOGLOBIN 8.3 g/dl (14.0-18.0); IMMATURE GRANULOCYTE # 0.2 10^3/uL (0-0); IMMATURE GRANULOCYTE % 1.5 % (0-0); LYMPH # 1.8 10^3/uL (1.5-4.5); LYMPH % 17.8 % (24.0-44.0); MEAN CORPUSCULAR HEMOGLOBIN 28.8 pg (27.0-33.0); MEAN CORPUSCULAR HGB CONC 31.7 g/dl (32.0-36.5); MONO # 0.8 10^3/uL (0.0-0.8); MONO % 8.5 % (0.0-5.0); NEUTROPHILS # 6.6 10^3/uL (1.8-7.7); NEUTROPHILS % 67.3 % (36.0-66.0); PLATELET COUNT, AUTOMATED 263 10^3/uL (150-450); RED BLOOD COUNT 2.88 10^6/uL (4.30-6.10); RED CELL DISTRIBUTION WIDTH 14.5 % (11.5-14.5); WHITE BLOOD COUNT 9.8 10^3/uL (4.0-10.0)
[2017-04-02 06:13] LABS: INR 1.14; PROTHROMBIN TIME 14.8 SECONDS (12.4-14.5)
[2017-04-02 06:27] LABS: ANION GAP 5 MEQ/L (8-16); BLOOD UREA NITROGEN 33 MG/DL (7-18); CALCIUM LEVEL 8.2 MG/DL (8.8-10.2); CARBON DIOXIDE LEVEL 29 MEQ/L (21-32); CHLORIDE LEVEL 106 MEQ/L (98-107); CREATININE FOR GFR 2.36 MG/DL (0.70-1.30); GLOMERULAR FILTRATION RATE 29.5 (>49); GLUCOSE, FASTING 124 MG/DL (80-110); POTASSIUM SERUM 4.3 MEQ/L (3.5-5.1); SODIUM LEVEL 140 MEQ/L (136-145)
[2017-04-02] MEDS: SYMBICORT 160/4.5MCG INHALER 6GM INH ×2 (08:06→19:20)
[2017-04-02] MEDS: HumaLOG INSULIN (NovoLOG) PER UNIT SC ×4 (08:18→20:21)
[2017-04-02] MEDS: NYSTATIN 100,000 UNITS/GM TOPICAL PWD 15 GM TOP ×2 (08:19→21:33)
[2017-04-02] MEDS: ENOXAPARIN 100MG/1ML SYRINGE (J1650) SC (08:19)
[2017-04-02] MEDS: LEVEMIR (INSULIN DETEMIR) 1 UNITS/0.01ML SC ×2 (08:19→21:32)
[2017-04-02] MEDS: ZIPRASIDONE 80 MG CAP (GEODON) PO ×2 (08:20→21:32)
[2017-04-02] MEDS: SODIUM CHLORIDE NASAL 0.65% SPRAY BTL (OCEAN) ×3 (08:20→21:33)
[2017-04-02] MEDS: GABAPENTIN 100 MG CAP PO ×3 (08:20→21:32)
[2017-04-02] MEDS: SENOKOT S TAB PO ×2 (08:20→21:35)
[2017-04-02] MEDS: HALOPERIDOL 5 MG TAB PO (08:20)
[2017-04-02] MEDS: ATENOLOL 50 MG TAB PO (08:21)
[2017-04-02] MEDS: amLODIPine 5 MG TAB PO (08:21)
[2017-04-02 12:28] LABS: BEDSIDE GLUCOSE 197 MG/DL (80-115)
[2017-04-02 16:48] LABS: BEDSIDE GLUCOSE 194 MG/DL (80-115)
[2017-04-02] MEDS: PERCOCET 5MG/325MG TAB PO (16:58)
[2017-04-02 20:41] LABS: BEDSIDE GLUCOSE 203 MG/DL (80-115)
[2017-04-02] MEDS: SIMVASTATIN 20 MG TAB PO (21:32)
[2017-04-02] MEDS: BENZTROPINE 0.5 MG TAB PO (21:32)
[2017-04-03 01:57] LABS: BEDSIDE GLUCOSE 229 MG/DL (80-115)
[2017-04-03] MEDS: PIPERACILLIN/TAZOBACTAM SOD 2.25 GM in APPROPRIATE DILUENT 1 EA IV ×4 (03:45→21:58)
[2017-04-03 06:12] LABS: BASO # 0.1 10^3/uL (0.0-0.2); BASO % 0.5 % (0.0-1.0); EOS # 0.3 10^3/uL (0.0-0.50); EOS % 2.8 % (0.0-3.0); HEMATOCRIT 26.8 % (42.0-52.0); HEMOGLOBIN 8.4 g/dl (14.0-18.0); IMMATURE GRANULOCYTE # 0.2 10^3/uL (0-0); IMMATURE GRANULOCYTE % 1.5 % (0-0); LYMPH # 1.8 10^3/uL (1.5-4.5); LYMPH % 16.5 % (24.0-44.0); MEAN CORPUSCULAR HEMOGLOBIN 28.7 pg (27.0-33.0); MEAN CORPUSCULAR HGB CONC 31.3 g/dl (32.0-36.5); MEAN CORPUSCULAR VOLUME 91.5 fl (80.0-96.0); MONO # 0.9 10^3/uL (0.0-0.8); NEUTROPHILS # 7.7 10^3/uL (1.8-7.7); NEUTROPHILS % 70.7 % (36.0-66.0); PLATELET COUNT, AUTOMATED 260 10^3/uL (150-450); RED BLOOD COUNT 2.93 10^6/uL (4.30-6.10); RED CELL DISTRIBUTION WIDTH 14.6 % (11.5-14.5); WHITE BLOOD COUNT 10.9 10^3/uL (4.0-10.0)
[2017-04-03 06:19] LABS: INR 1.09; PROTHROMBIN TIME 14.3 SECONDS (12.4-14.5)
[2017-04-03 06:35] LABS: ANION GAP 6 MEQ/L (8-16); BLOOD UREA NITROGEN 34 MG/DL (7-18); CALCIUM LEVEL 8.6 MG/DL (8.8-10.2); CARBON DIOXIDE LEVEL 30 MEQ/L (21-32); CHLORIDE LEVEL 107 MEQ/L (98-107); CREATININE FOR GFR 2.48 MG/DL (0.70-1.30); GLOMERULAR FILTRATION RATE 27.9 (>49); GLUCOSE, FASTING 197 MG/DL (80-110); POTASSIUM SERUM 4.3 MEQ/L (3.5-5.1); SODIUM LEVEL 143 MEQ/L (136-145)
[2017-04-03] MEDS: SYMBICORT 160/4.5MCG INHALER 6GM INH ×2 (08:07→22:12)
[2017-04-03] MEDS: HumaLOG INSULIN (NovoLOG) PER UNIT SC ×4 (09:27→20:52)
[2017-04-03] MEDS: LEVEMIR (INSULIN DETEMIR) 1 UNITS/0.01ML SC ×2 (09:27→21:57)
[2017-04-03] MEDS: ZIPRASIDONE 80 MG CAP (GEODON) PO ×2 (09:28→21:57)
[2017-04-03] MEDS: ENOXAPARIN 100MG/1ML SYRINGE (J1650) SC (09:28)
[2017-04-03] MEDS: SENOKOT S TAB PO ×3 (09:28→22:00)
[2017-04-03] MEDS: GABAPENTIN 100 MG CAP PO ×3 (09:28→21:57)
[2017-04-03] MEDS: ATENOLOL 50 MG TAB PO (09:30)
[2017-04-03] MEDS: amLODIPine 5 MG TAB PO (09:30)
[2017-04-03] MEDS: HALOPERIDOL 5 MG TAB PO (09:30)
[2017-04-03] MEDS: NYSTATIN 100,000 UNITS/GM TOPICAL PWD 15 GM TOP ×2 (09:31→21:58)
[2017-04-03] MEDS: SODIUM CHLORIDE NASAL 0.65% SPRAY BTL (OCEAN) ×3 (09:31→21:58)
[2017-04-03 11:59] LABS: BEDSIDE GLUCOSE 383 MG/DL (80-115)
[2017-04-03 16:38] LABS: BEDSIDE GLUCOSE 218 MG/DL (80-115)
[2017-04-03] MEDS: PERCOCET 5MG/325MG TAB PO (17:39)
[2017-04-03 21:27] LABS: BEDSIDE GLUCOSE 203 MG/DL (80-115)
[2017-04-03] MEDS: SIMVASTATIN 20 MG TAB PO (21:57)
[2017-04-03] MEDS: BENZTROPINE 0.5 MG TAB PO (21:57)
[2017-04-04] MEDS: PIPERACILLIN/TAZOBACTAM SOD 2.25 GM in APPROPRIATE DILUENT 1 EA IV ×3 (04:20→16:00)
[2017-04-04] MEDS: ACETAMINOPHEN 500 MG TAB PO (05:14)
[2017-04-04 06:45] LABS: BEDSIDE GLUCOSE 196 MG/DL (80-115)
[2017-04-04] MEDS: SENOKOT S TAB PO ×2 (07:43→21:33)
[2017-04-04] MEDS: HALOPERIDOL 5 MG TAB PO (07:44)
[2017-04-04] MEDS: ATENOLOL 50 MG TAB PO (07:44)
[2017-04-04] MEDS: HumaLOG INSULIN (NovoLOG) PER UNIT SC ×4 (07:44→21:27)
[2017-04-04] MEDS: GABAPENTIN 100 MG CAP PO ×3 (07:44→21:32)
[2017-04-04] MEDS: amLODIPine 5 MG TAB PO (07:44)
[2017-04-04] MEDS: LEVEMIR (INSULIN DETEMIR) 1 UNITS/0.01ML SC ×2 (07:45→21:33)
[2017-04-04] MEDS: NYSTATIN 100,000 UNITS/GM TOPICAL PWD 15 GM TOP ×2 (07:50→21:33)
[2017-04-04] MEDS: ZIPRASIDONE 80 MG CAP (GEODON) PO ×2 (07:50→21:32)
[2017-04-04] MEDS: SODIUM CHLORIDE NASAL 0.65% SPRAY BTL (OCEAN) ×3 (07:50→21:33)
[2017-04-04] MEDS: SYMBICORT 160/4.5MCG INHALER 6GM INH ×2 (08:38→21:34)
[2017-04-04 09:58] LABS: HEMATOCRIT 28.1 % (42.0-52.0); HEMOGLOBIN 8.7 g/dl (14.0-18.0); MEAN CORPUSCULAR VOLUME 93.7 fl (80.0-96.0); PLATELET COUNT, AUTOMATED 237 10^3/uL (150-450); RED CELL DISTRIBUTION WIDTH 14.8 % (11.5-14.5); WHITE BLOOD COUNT 10.1 10^3/uL (4.0-10.0)
[2017-04-04 10:26] LABS: ANION GAP 4 MEQ/L (8-16); BLOOD UREA NITROGEN 34 MG/DL (7-18); CALCIUM LEVEL 8.5 MG/DL (8.8-10.2); CARBON DIOXIDE LEVEL 30 MEQ/L (21-32); CHLORIDE LEVEL 107 MEQ/L (98-107); CREATININE FOR GFR 2.59 MG/DL (0.70-1.30); GLOMERULAR FILTRATION RATE 26.5 (>49); GLUCOSE, FASTING 214 MG/DL (80-110); POTASSIUM SERUM 4.6 MEQ/L (3.5-5.1); SODIUM LEVEL 141 MEQ/L (136-145)
[2017-04-04 12:06] LABS: BEDSIDE GLUCOSE 384 MG/DL (80-115)
[2017-04-04] MEDS: ENOXAPARIN 100MG/1ML SYRINGE (J1650) SC (12:38)
[2017-04-04 15:33] LABS: C REACTIVE PROTEIN QUANTITATIV 1.22 MG/DL (0.00-0.30)
[2017-04-04 16:50] LABS: BEDSIDE GLUCOSE 155 MG/DL (80-115)
[2017-04-04 21:02] LABS: BEDSIDE GLUCOSE 159 MG/DL (80-115)
[2017-04-04] MEDS: BENZTROPINE 0.5 MG TAB PO (21:32)
[2017-04-04] MEDS: AUGMENTIN 875 MG TAB PO (21:32)
[2017-04-04] MEDS: SIMVASTATIN 20 MG TAB PO (21:32)
[2017-04-04 23:30] LABS: CK-MB VALUE MASS 1.6 NG/ML (0.0-3.6); CPK CREATINE PHOSPHOKINASE 68 U/L (39-308); MB/CK RELATIVE INDEX 2.35 (< OR =4); TROPONIN I < 0.02 NG/ML (< 0.10)
[2017-04-05 06:46] LABS: BEDSIDE GLUCOSE 167 MG/DL (80-115)
[2017-04-05] MEDS: AUGMENTIN 875 MG TAB PO ×2 (07:51→22:09)
[2017-04-05] MEDS: GABAPENTIN 100 MG CAP PO ×3 (07:51→22:10)
[2017-04-05] MEDS: amLODIPine 5 MG TAB PO (07:52)
[2017-04-05] MEDS: ENOXAPARIN 100MG/1ML SYRINGE (J1650) SC (07:52)
[2017-04-05] MEDS: ZIPRASIDONE 80 MG CAP (GEODON) PO ×2 (07:52→22:15)
[2017-04-05] MEDS: ATENOLOL 50 MG TAB PO (07:52)
[2017-04-05] MEDS: HumaLOG INSULIN (NovoLOG) PER UNIT SC ×4 (07:53→20:24)
[2017-04-05] MEDS: LEVEMIR (INSULIN DETEMIR) 1 UNITS/0.01ML SC ×2 (07:53→21:00)
[2017-04-05] MEDS: SENOKOT S TAB PO ×3 (07:53→22:10)
[2017-04-05] MEDS: SODIUM CHLORIDE NASAL 0.65% SPRAY BTL (OCEAN) ×3 (07:54→22:11)
[2017-04-05] MEDS: NYSTATIN 100,000 UNITS/GM TOPICAL PWD 15 GM TOP ×2 (07:54→22:11)
[2017-04-05] MEDS: HALOPERIDOL 5 MG TAB PO (07:57)
[2017-04-05] MEDS: SYMBICORT 160/4.5MCG INHALER 6GM INH ×2 (07:57→20:00)
[2017-04-05 12:03] LABS: BEDSIDE GLUCOSE 307 MG/DL (80-115)
[2017-04-05] MEDS: PERCOCET 5MG/325MG TAB PO (14:32)
[2017-04-05 16:45] LABS: BEDSIDE GLUCOSE 197 MG/DL (80-115)
[2017-04-05] MEDS: WARFARIN SOD 5 MG TAB PO (18:13)
[2017-04-05 20:28] LABS: BEDSIDE GLUCOSE 180 MG/DL (80-115)
[2017-04-05] MEDS: SIMVASTATIN 20 MG TAB PO (22:10)
[2017-04-05] MEDS: BENZTROPINE 0.5 MG TAB PO (22:15)
[2017-04-06] MEDS: ACETAMINOPHEN 500 MG TAB PO (01:55)
[2017-04-06 06:49] LABS: BEDSIDE GLUCOSE 223 MG/DL (80-115)
[2017-04-06] MEDS: AUGMENTIN 875 MG TAB PO ×2 (09:46→21:05)
[2017-04-06] MEDS: HALOPERIDOL 5 MG TAB PO (09:46)
[2017-04-06] MEDS: HumaLOG INSULIN (NovoLOG) PER UNIT SC ×4 (09:47→20:56)
[2017-04-06] MEDS: SENOKOT S TAB PO ×2 (09:47→21:00)
[2017-04-06] MEDS: ZIPRASIDONE 80 MG CAP (GEODON) PO ×2 (09:47→21:05)
[2017-04-06] MEDS: ENOXAPARIN 100MG/1ML SYRINGE (J1650) SC (09:47)
[2017-04-06] MEDS: GABAPENTIN 100 MG CAP PO ×3 (09:47→21:05)
[2017-04-06] MEDS: NYSTATIN 100,000 UNITS/GM TOPICAL PWD 15 GM TOP ×2 (09:48→21:06)
[2017-04-06] MEDS: LEVEMIR (INSULIN DETEMIR) 1 UNITS/0.01ML SC ×2 (09:48→21:06)
[2017-04-06] MEDS: amLODIPine 5 MG TAB PO (09:51)
[2017-04-06] MEDS: ATENOLOL 50 MG TAB PO (09:51)
[2017-04-06] MEDS: SODIUM CHLORIDE NASAL 0.65% SPRAY BTL (OCEAN) ×3 (09:55→21:06)
[2017-04-06] MEDS: PERCOCET 5MG/325MG TAB PO (09:56)
[2017-04-06] MEDS: SYMBICORT 160/4.5MCG INHALER 6GM INH ×2 (11:04→23:00)
[2017-04-06 11:50] LABS: BEDSIDE GLUCOSE 206 MG/DL (80-115)
[2017-04-06] MEDS: WARFARIN SOD 5 MG TAB PO (17:53)
[2017-04-06 21:03] LABS: BEDSIDE GLUCOSE 197 MG/DL (80-115)
[2017-04-06] MEDS: SIMVASTATIN 20 MG TAB PO (21:05)
[2017-04-06] MEDS: BENZTROPINE 0.5 MG TAB PO (21:05)
[2017-04-07] MEDS: PERCOCET 5MG/325MG TAB PO ×2 (00:36→09:15)
[2017-04-07 06:43] LABS: INR 1.07
[2017-04-07] MEDS: SYMBICORT 160/4.5MCG INHALER 6GM INH ×2 (07:29→21:02)
[2017-04-07 07:34] LABS: BEDSIDE GLUCOSE 189 MG/DL (80-115)
[2017-04-07 08:36] LABS: HEMATOCRIT 29.3 % (42.0-52.0); HEMOGLOBIN 9.2 g/dl (14.0-18.0); MEAN CORPUSCULAR HEMOGLOBIN 29.7 pg (27.0-33.0); MEAN CORPUSCULAR HGB CONC 31.4 g/dl (32.0-36.5); MEAN CORPUSCULAR VOLUME 94.5 fl (80.0-96.0); PLATELET COUNT, AUTOMATED 272 10^3/uL (150-450); RED CELL DISTRIBUTION WIDTH 15.6 % (11.5-14.5); WHITE BLOOD COUNT 10.1 10^3/uL (4.0-10.0)
[2017-04-07 08:48] LABS: ANION GAP 5 MEQ/L (8-16); BLOOD UREA NITROGEN 40 MG/DL (7-18); CALCIUM LEVEL 8.5 MG/DL (8.8-10.2); CARBON DIOXIDE LEVEL 27 MEQ/L (21-32); CHLORIDE LEVEL 110 MEQ/L (98-107); CREATININE FOR GFR 2.04 MG/DL (0.70-1.30); GLUCOSE, FASTING 129 MG/DL (80-110); POTASSIUM SERUM 4.3 MEQ/L (3.5-5.1); SODIUM LEVEL 142 MEQ/L (136-145)
[2017-04-07] MEDS: GABAPENTIN 100 MG CAP PO ×3 (09:09→21:28)
[2017-04-07] MEDS: amLODIPine 5 MG TAB PO (09:09)
[2017-04-07] MEDS: HALOPERIDOL 5 MG TAB PO (09:09)
[2017-04-07] MEDS: ZIPRASIDONE 80 MG CAP (GEODON) PO ×2 (09:10→21:28)
[2017-04-07] MEDS: ENOXAPARIN 100MG/1ML SYRINGE (J1650) SC (09:10)
[2017-04-07] MEDS: SENOKOT S TAB PO ×2 (09:10→21:00)
[2017-04-07] MEDS: AUGMENTIN 875 MG TAB PO ×2 (09:10→21:28)
[2017-04-07] MEDS: ATENOLOL 50 MG TAB PO (09:10)
[2017-04-07] MEDS: LEVEMIR (INSULIN DETEMIR) 1 UNITS/0.01ML SC ×2 (09:11→21:29)
[2017-04-07] MEDS: SODIUM CHLORIDE NASAL 0.65% SPRAY BTL (OCEAN) ×3 (09:11→21:29)
[2017-04-07] MEDS: NYSTATIN 100,000 UNITS/GM TOPICAL PWD 15 GM TOP ×2 (09:11→21:29)
[2017-04-07] MEDS: HumaLOG INSULIN (NovoLOG) PER UNIT SC ×5 (09:12→20:52)
[2017-04-07 13:36] LABS: BEDSIDE GLUCOSE 238 MG/DL (80-115)
[2017-04-07 13:37] LABS: BEDSIDE GLUCOSE 375 MG/DL (80-115)
[2017-04-07] MEDS: WARFARIN SOD 5 MG TAB PO (17:38)
[2017-04-07 20:58] LABS: BEDSIDE GLUCOSE 210 MG/DL (80-115)
[2017-04-07] MEDS: BENZTROPINE 0.5 MG TAB PO (21:28)
[2017-04-07] MEDS: SIMVASTATIN 20 MG TAB PO (21:28)
[2017-04-08 06:57] LABS: BASO # 0.1 10^3/uL (0.0-0.2); BASO % 0.8 % (0.0-1.0); EOS # 0.6 10^3/uL (0.0-0.50); EOS % 5.6 % (0.0-3.0); HEMATOCRIT 30.3 % (42.0-52.0); HEMOGLOBIN 9.5 g/dl (14.0-18.0); IMMATURE GRANULOCYTE # 0.1 10^3/uL (0-0); IMMATURE GRANULOCYTE % 0.9 % (0-0); LYMPH # 2.1 10^3/uL (1.5-4.5); LYMPH % 19.4 % (24.0-44.0); MEAN CORPUSCULAR HEMOGLOBIN 28.9 pg (27.0-33.0); MEAN CORPUSCULAR HGB CONC 31.4 g/dl (32.0-36.5); MEAN CORPUSCULAR VOLUME 92.1 fl (80.0-96.0); MONO # 0.9 10^3/uL (0.0-0.8); MONO % 8.6 % (0.0-5.0); NEUTROPHILS % 64.7 % (36.0-66.0); PLATELET COUNT, AUTOMATED 286 10^3/uL (150-450); RED BLOOD COUNT 3.29 10^6/uL (4.30-6.10); RED CELL DISTRIBUTION WIDTH 15.6 % (11.5-14.5); WHITE BLOOD COUNT 10.8 10^3/uL (4.0-10.0)
[2017-04-08 07:16] LABS: INR 1.09; PROTHROMBIN TIME 14.3 SECONDS (12.4-14.5)
[2017-04-08] MEDS: GABAPENTIN 100 MG CAP PO (07:54)
[2017-04-08] MEDS: AUGMENTIN 875 MG TAB PO (07:55)
[2017-04-08] MEDS: amLODIPine 5 MG TAB PO (07:55)
[2017-04-08] MEDS: ATENOLOL 50 MG TAB PO (07:55)
[2017-04-08] MEDS: SENOKOT S TAB PO (07:55)
[2017-04-08] MEDS: ZIPRASIDONE 80 MG CAP (GEODON) PO (07:55)
[2017-04-08] MEDS: HumaLOG INSULIN (NovoLOG) PER UNIT SC ×2 (07:56→13:13)
[2017-04-08] MEDS: LEVEMIR (INSULIN DETEMIR) 1 UNITS/0.01ML SC (07:57)
[2017-04-08] MEDS: NYSTATIN 100,000 UNITS/GM TOPICAL PWD 15 GM TOP (07:57)
[2017-04-08] MEDS: ENOXAPARIN 100MG/1ML SYRINGE (J1650) SC (07:57)
[2017-04-08] MEDS: SODIUM CHLORIDE NASAL 0.65% SPRAY BTL (OCEAN) (07:58)
[2017-04-08] MEDS: HALOPERIDOL 5 MG TAB PO (08:09)
[2017-04-08] MEDS: SYMBICORT 160/4.5MCG INHALER 6GM INH (08:52)
[2017-04-08 14:28] LABS: BEDSIDE GLUCOSE 265 MG/DL (80-115)
[2017-04-08 14:28] LABS: BEDSIDE GLUCOSE 150 MG/DL (80-115)
== END 2017-04-08 13:36 | DRG 617 ==
LOC: M MSPAV 03-23 14:30 → M ED 05:38 → M ED INP 10:06
PROC: 0JBR0ZZ Excision of Left Foot Subcutaneous Tissue and Fascia, Open Approach (ICD-10-PCS; 2017-03-23 16:30)
PROC: 0Y6N0Z0 Detachment at Left Foot, Complete, Open Approach (ICD-10-PCS; principal; 2017-03-23 16:44)
DX: E11.69 Type 2 diabetes mellitus with other specified complication (principal); L03.116 Cellulitis of left lower limb; T87.44 Infection of amputation stump, left lower extremity; E11.52 Type 2 diabetes mellitus with diabetic peripheral angiopathy with gangrene; N17.9 Acute kidney failure, unspecified; I12.9 Hypertensive chronic kidney disease with stage 1 through stage 4 chronic kidney disease, or unspecified chronic kidney disease; E11.621 Type 2 diabetes mellitus with foot ulcer; J44.9 Chronic obstructive pulmonary disease, unspecified; E11.40 Type 2 diabetes mellitus with diabetic neuropathy, unspecified; E66.9 Obesity, unspecified; F25.9 Schizoaffective disorder, unspecified; E78.5 Hyperlipidemia, unspecified; F17.210 Nicotine dependence, cigarettes, uncomplicated; I25.2 Old myocardial infarction; N18.3 Chronic kidney disease, stage 3 (moderate); Z95.9 Presence of cardiac and vascular implant and graft, unspecified; I25.10 Atherosclerotic heart disease of native coronary artery without angina pectoris; Z79.4 Long term (current) use of insulin; Z79.01 Long term (current) use of anticoagulants; Z79.899 Other long term (current) drug therapy; Z89.611 Acquired absence of right leg above knee; Z86.718 Personal history of other venous thrombosis and embolism; Z88.4 Allergy status to anesthetic agent; Z68.32 Body mass index [BMI] 32.0-32.9, adult; B95.2 Enterococcus as the cause of diseases classified elsewhere; B95.1 Streptococcus, group B, as the cause of diseases classified elsewhere; Y82.9 Unspecified medical devices associated with adverse incidents; L97.529 Non-pressure chronic ulcer of other part of left foot with unspecified severity

== ENCOUNTER → 2017-04-11 | Outpatient (REF) ==
[2017-04-11 13:17] LABS: HEMATOCRIT 28.5 % (42.0-52.0); MEAN CORPUSCULAR HEMOGLOBIN 29.4 pg (27.0-33.0); MEAN CORPUSCULAR HGB CONC 31.6 g/dl (32.0-36.5); MEAN CORPUSCULAR VOLUME 93.1 fl (80.0-96.0); PLATELET COUNT, AUTOMATED 232 10^3/uL (150-450); RED BLOOD COUNT 3.06 10^6/uL (4.30-6.10); RED CELL DISTRIBUTION WIDTH 15.9 % (11.5-14.5); WHITE BLOOD COUNT 7.9 10^3/uL (4.0-10.0)
[2017-04-11 13:43] LABS: ANION GAP 6 MEQ/L (8-16); BLOOD UREA NITROGEN 37 MG/DL (7-18); C REACTIVE PROTEIN QUANTITATIV 0.91 MG/DL (0.00-0.30); CALCIUM LEVEL 8.7 MG/DL (8.8-10.2); CARBON DIOXIDE LEVEL 27 MEQ/L (21-32); CHLORIDE LEVEL 107 MEQ/L (98-107); CREATININE FOR GFR 2.06 MG/DL (0.70-1.30); GLOMERULAR FILTRATION RATE 34.6 (>49); GLUCOSE, FASTING 201 MG/DL (70-100); POTASSIUM SERUM 4.5 MEQ/L (3.5-5.1); SODIUM LEVEL 140 MEQ/L (136-145)
== END ==
DX: M86.9 Osteomyelitis, unspecified (principal)

== ENCOUNTER → 2017-04-18 | Outpatient (REF) | payer MEDICARE, MEDICAID | DX: Z86.14 Personal history of Methicillin resistant Staphylococcus aureus infection (principal) | CPT/HCPCS: 87081 ==

== ENCOUNTER → 2017-04-19 | Outpatient (REF) | payer MEDICARE, MEDICAID ==
[2017-04-19 12:21] LABS: HEMATOCRIT 29.2 % (42.0-52.0); HEMOGLOBIN 9.4 g/dl (14.0-18.0); MEAN CORPUSCULAR HEMOGLOBIN 29.9 pg (27.0-33.0); MEAN CORPUSCULAR HGB CONC 32.2 g/dl (32.0-36.5); PLATELET COUNT, AUTOMATED 197 10^3/uL (150-450); RED BLOOD COUNT 3.14 10^6/uL (4.30-6.10); RED CELL DISTRIBUTION WIDTH 15.4 % (11.5-14.5); WHITE BLOOD COUNT 8.2 10^3/uL (4.0-10.0)
[2017-04-19 13:14] LABS: ANION GAP 7 MEQ/L (8-16); BLOOD UREA NITROGEN 41 MG/DL (7-18); C REACTIVE PROTEIN QUANTITATIV 1.21 MG/DL (0.00-0.30); CALCIUM LEVEL 8.9 MG/DL (8.8-10.2); CARBON DIOXIDE LEVEL 26 MEQ/L (21-32); CHLORIDE LEVEL 107 MEQ/L (98-107); CREATININE FOR GFR 2.07 MG/DL (0.70-1.30); GLOMERULAR FILTRATION RATE 34.4 (>49); GLUCOSE, FASTING 229 MG/DL (70-100); POTASSIUM SERUM 4.5 MEQ/L (3.5-5.1); SODIUM LEVEL 140 MEQ/L (136-145)
== END ==
DX: M86.9 Osteomyelitis, unspecified (principal)
CPT/HCPCS: 80048

== ENCOUNTER → 2017-04-21 | Outpatient (REF) | payer MEDICARE, MEDICAID ==
[2017-04-21 19:02] LABS: HEMATOCRIT 30.2 % (42.0-52.0); HEMOGLOBIN 9.5 g/dl (14.0-18.0); MEAN CORPUSCULAR HEMOGLOBIN 29.2 pg (27.0-33.0); MEAN CORPUSCULAR HGB CONC 31.5 g/dl (32.0-36.5); MEAN CORPUSCULAR VOLUME 92.9 fl (80.0-96.0); PLATELET COUNT, AUTOMATED 210 10^3/uL (150-450); RED BLOOD COUNT 3.25 10^6/uL (4.30-6.10); RED CELL DISTRIBUTION WIDTH 15.1 % (11.5-14.5); WHITE BLOOD COUNT 9.6 10^3/uL (4.0-10.0)
[2017-04-21 19:56] LABS: ANION GAP 6 MEQ/L (8-16); BLOOD UREA NITROGEN 45 MG/DL (7-18); CALCIUM LEVEL 8.8 MG/DL (8.8-10.2); CARBON DIOXIDE LEVEL 27 MEQ/L (21-32); CHLORIDE LEVEL 106 MEQ/L (98-107); CREATININE FOR GFR 2.03 MG/DL (0.70-1.30); GLOMERULAR FILTRATION RATE 35.2 (>49); GLUCOSE, FASTING 232 MG/DL (70-100); POTASSIUM SERUM 4.5 MEQ/L (3.5-5.1); SODIUM LEVEL 139 MEQ/L (136-145)
== END ==
DX: T87.44 Infection of amputation stump, left lower extremity (principal)
CPT/HCPCS: 80048

== ENCOUNTER → 2017-04-25 | Outpatient (REF) | DX: Z22.322 Carrier or suspected carrier of Methicillin resistant Staphylococcus aureus (principal) ==

== ENCOUNTER → 2017-04-26 | Outpatient (REF) ==
[2017-04-26 11:02] LABS: HEMATOCRIT 31.6 % (42.0-52.0); MEAN CORPUSCULAR HEMOGLOBIN 29.4 pg (27.0-33.0); MEAN CORPUSCULAR HGB CONC 31.6 g/dl (32.0-36.5); MEAN CORPUSCULAR VOLUME 92.9 fl (80.0-96.0); PLATELET COUNT, AUTOMATED 181 10^3/uL (150-450); RED CELL DISTRIBUTION WIDTH 15.3 % (11.5-14.5); WHITE BLOOD COUNT 8.6 10^3/uL (4.0-10.0)
[2017-04-26 11:21] LABS: ANION GAP 8 MEQ/L (8-16); BLOOD UREA NITROGEN 47 MG/DL (7-18); C REACTIVE PROTEIN QUANTITATIV 1.08 MG/DL (0.00-0.30); CALCIUM LEVEL 9.2 MG/DL (8.8-10.2); CARBON DIOXIDE LEVEL 28 MEQ/L (21-32); CHLORIDE LEVEL 103 MEQ/L (98-107); CREATININE FOR GFR 2.18 MG/DL (0.70-1.30); GLOMERULAR FILTRATION RATE 32.4 (>49); GLUCOSE, FASTING 248 MG/DL (70-100); POTASSIUM SERUM 4.4 MEQ/L (3.5-5.1); SODIUM LEVEL 139 MEQ/L (136-145)
== END ==
DX: M86.9 Osteomyelitis, unspecified (principal)

== ENCOUNTER → 2017-05-04 | Outpatient (REF) ==
[2017-05-04 18:47] LABS: ANION GAP 9 MEQ/L (8-16); BLOOD UREA NITROGEN 52 MG/DL (7-18); CARBON DIOXIDE LEVEL 26 MEQ/L (21-32); CHLORIDE LEVEL 105 MEQ/L (98-107); CREATININE FOR GFR 2.28 MG/DL (0.70-1.30); GLOMERULAR FILTRATION RATE 30.7 (>49); GLUCOSE, FASTING 209 MG/DL (70-100); POTASSIUM SERUM 4.6 MEQ/L (3.5-5.1); SODIUM LEVEL 140 MEQ/L (136-145)
[2017-05-04 18:49] LABS: HEMATOCRIT 31.8 % (42.0-52.0); HEMOGLOBIN 10.2 g/dl (14.0-18.0); MEAN CORPUSCULAR HEMOGLOBIN 29.7 pg (27.0-33.0); MEAN CORPUSCULAR HGB CONC 32.1 g/dl (32.0-36.5); MEAN CORPUSCULAR VOLUME 92.4 fl (80.0-96.0); PLATELET COUNT, AUTOMATED 209 10^3/uL (150-450); RED BLOOD COUNT 3.44 10^6/uL (4.30-6.10); RED CELL DISTRIBUTION WIDTH 15.3 % (11.5-14.5); WHITE BLOOD COUNT 10.4 10^3/uL (4.0-10.0)
== END ==
DX: R53.83 Other fatigue (principal)

== ENCOUNTER → 2017-05-11 | Outpatient (REF) | payer MEDICARE, MEDICAID ==
[2017-05-11 12:48] LABS: INR 2.13; PROTHROMBIN TIME 24.6 SECONDS (12.4-14.5)
[2017-05-11 13:06] LABS: ANION GAP 7 MEQ/L (8-16); BLOOD UREA NITROGEN 44 MG/DL (7-18); CALCIUM LEVEL 8.6 MG/DL (8.8-10.2); CARBON DIOXIDE LEVEL 29 MEQ/L (21-32); CHLORIDE LEVEL 102 MEQ/L (98-107); CREATININE FOR GFR 2.44 MG/DL (0.70-1.30); GLOMERULAR FILTRATION RATE 28.4 (>49); GLUCOSE, FASTING 146 MG/DL (70-100); POTASSIUM SERUM 4.3 MEQ/L (3.5-5.1); SODIUM LEVEL 138 MEQ/L (136-145)
== END ==
LOC: M LAB REF 12:17
DX: N18.3 Chronic kidney disease, stage 3 (moderate) (principal); Z79.01 Long term (current) use of anticoagulants
CPT/HCPCS: 80048

== ENCOUNTER → 2017-05-23 | Outpatient (REF) | payer MEDICARE, MEDICAID ==
[2017-05-23 13:30] LABS: INR 1.31; PROTHROMBIN TIME 16.6 SECONDS (12.4-14.5)
== END ==
LOC: M LAB REF 12:39
DX: I82.220 Acute embolism and thrombosis of inferior vena cava (principal)
CPT/HCPCS: 85610

== ENCOUNTER → 2017-06-06 | Outpatient (REF) | payer MEDICARE, MEDICAID ==
[2017-06-06 14:01] LABS: INR 1.86
== END ==
LOC: M LAB REF 12:55
DX: I82.220 Acute embolism and thrombosis of inferior vena cava (principal)
CPT/HCPCS: 85610

== ENCOUNTER → 2017-07-06 | Outpatient (REF) | payer MEDICARE, MEDICAID ==
[2017-07-06 13:11] LABS: INR 3.24; PROTHROMBIN TIME 34.6 SECONDS (12.4-14.5)
== END ==
LOC: M LAB REF 12:28
DX: I82.220 Acute embolism and thrombosis of inferior vena cava (principal)
CPT/HCPCS: 85610

== ENCOUNTER → 2017-07-25 | Outpatient (REF) | payer MEDICARE, MEDICAID ==
[2017-07-25 15:55] LABS: INR 1.63; PROTHROMBIN TIME 19.8 SECONDS (12.4-14.5)
== END ==
LOC: M SHH 14:51
DX: I82.220 Acute embolism and thrombosis of inferior vena cava (principal)
CPT/HCPCS: 85610

== ENCOUNTER → 2017-08-08 | Outpatient (REF) | payer MEDICARE, MEDICAID | LOC: M SHH 15:06 | DX: Z79.01 Long term (current) use of anticoagulants (principal); I82.220 Acute embolism and thrombosis of inferior vena cava ==

== ENCOUNTER → 2017-08-19 | Outpatient (REF) | payer MEDICARE, MEDICAID | LOC: M LAB REF 13:34 | DX: L03.116 Cellulitis of left lower limb (principal); E11.621 Type 2 diabetes mellitus with foot ulcer | CPT/HCPCS: 87186 ==

== ENCOUNTER 2017-09-21 08:00 | Inpatient (IN) | payer MEDICARE, MEDICAID ==
[2017-09-21] MEDS: SENOKOT S TAB PO ×2 (09:00→21:24)
[2017-09-21] MEDS: ZIPRASIDONE 80 MG CAP (GEODON) PO ×2 (09:00→21:24)
[2017-09-21] MEDS: HEPARIN SOD (PORCINE) 5000 UNITS/ML VIAL SC (09:00)
[2017-09-21 09:47] LABS: BASO # 0.1 10^3/uL (0.0-0.2); BASO % 0.2 % (0.0-1.0); HEMATOCRIT 34.3 % (42.0-52.0); HEMOGLOBIN 11.7 g/dl (13.5-17.5); IMMATURE GRANULOCYTE % 1.2 % (0-3.0); LYMPH % 0.9 % (24.0-44.0); MEAN CORPUSCULAR HGB CONC 34.1 g/dl (32.0-36.5); MEAN CORPUSCULAR VOLUME 93.7 fl (80.0-96.0); MONO # 0.8 10^3/uL (0.0-0.8); MONO % 3.3 % (0.0-5.0); NEUTROPHILS # 23.5 10^3/uL (1.8-7.7); NEUTROPHILS % 94.4 % (36.0-66.0); PLATELET COUNT, AUTOMATED 248 10^3/uL (150-450); RED BLOOD COUNT 3.66 10^6/uL (4.30-6.10); RED CELL DISTRIBUTION WIDTH 14.4 % (11.5-14.5); WHITE BLOOD COUNT 24.9 10^3/uL (4.0-10.0)
[2017-09-21 09:51] LABS: INR 2.53; PROTHROMBIN TIME 27.8 SECONDS (12.1-14.4)
[2017-09-21 09:56] LABS: ABG BASE EXCESS -5.6 (-2.0-2.0); ABG HCO3 18.2 MEQ/L (22.0-26.0); ABG O2 SATURATION 95.1 % (95.0-99.0); ABG PARTIAL PRESSURE CO2 30.3 mmHg (35.0-45.0); ABG PARTIAL PRESSURE O2 72.3 mmHg (75.0-100.0); ABG STANDARD HCO3 19.8 MEQ/L (22.0-26.0); ABG TOTAL CO2 19.1 MEQ/L (23.0-31.0); ABG pH (ARTERIAL) 7.396 UNITS (7.350-7.450)
[2017-09-21 09:58] LABS: ANION GAP 11 MEQ/L (8-16); BLOOD UREA NITROGEN 44 MG/DL (7-18); C REACTIVE PROTEIN QUANTITATIV 6.36 MG/DL (0.00-0.30); CALCIUM LEVEL 7.6 MG/DL (8.8-10.2); CARBON DIOXIDE LEVEL 21 MEQ/L (21-32); CHLORIDE LEVEL 103 MEQ/L (98-107); CK-MB VALUE MASS 3.3 NG/ML (<3.6); CPK CREATINE PHOSPHOKINASE 604 U/L (39-308); CREATININE FOR GFR 3.56 MG/DL (0.70-1.30); GLOMERULAR FILTRATION RATE 18.3 (>49); LYMPH # 0.2 10^3/uL (1.5-4.5); MB/CK RELATIVE INDEX 0.54 (< OR =4); POSITIVE DIFF POS FLAG; POTASSIUM SERUM 4.9 MEQ/L (3.5-5.1); SODIUM LEVEL 135 MEQ/L (136-145); TROPONIN I 0.03 NG/ML (< 0.10)
[2017-09-21 10:02] LABS: GLUCOSE, FASTING 424 MG/DL (70-100)
[2017-09-21] MEDS: ACETAMINOPHEN TAB 650MG DOSE (2X325MG) PO (10:15)
[2017-09-21 10:44] LABS: AMORPHOUS SEDIMENT RFX MODERATE (NEGATIVE); ERYTHROCYTE SEDIMENTATION RATE 1 mm/hr (0-20); KETONE, URINE AUTO RFX NEGATIVE (NEGATIVE); LEUKOCYTE ESTERASE UR AUTO RFX NEGATIVE (NEGATIVE); MUCUS, URINE RFX SMALL (NEGATIVE); NITRITE, URINE AUTO RFX NEGATIVE (NEGATIVE); RBC, URINE AUTO RFX 1 /HPF (0-3); SPECIFIC GRAVITY UR AUTO RFX 1.008 (1.002-1.035); SQUAM EPITHELIAL CELL UR AURFX 0 /HPF (0-6); WBC, URINE AUTO RFX 2 /HPF (0-3)
[2017-09-21] MEDS: HumaLOG INSULIN (NovoLOG) PER UNIT SC ×4 (12:00→21:00)
[2017-09-21] MEDS ORDERED: GLUCOSE 4 GM CHEW TABLET PO (12:45)
[2017-09-21] MEDS ORDERED: ONDANSETRON 4MG/2ML VIAL (J2405) IV (12:45)
[2017-09-21] MEDS: VANCOMYCIN HCL 1,000 MG, VIAL MATE ADAPTER 1 EACH in D5W 250 ML IV ×4 (12:45→16:50)
[2017-09-21] MEDS ORDERED: DEXTROSE 50% 50 ML SYRINGE IV (12:45)
[2017-09-21] MEDS ORDERED: GLUCAGON FOR INJ 1 MG VIAL (J1610) SC (12:45)
[2017-09-21] MEDS: SODIUM CHLORIDE 0.9% 1000 ML IV (13:20)
[2017-09-21 13:21] LABS: BEDSIDE GLUCOSE 350 MG/DL (80-115)
[2017-09-21] MEDS: LEVEMIR (INSULIN DETEMIR) 1 UNITS/0.01ML SC ×2 (13:21→21:25)
[2017-09-21] MEDS ORDERED: IPRATROPIUM 0.5MG/ALBUTEROL 2.5MG INH SOL UD 3ML (DUONEB)(J7620) NEB (15:00)
[2017-09-21] MEDS: HALOPERIDOL 5 MG TAB PO (16:49)
[2017-09-21] MEDS: WARFARIN SOD 7.5 MG TAB PO (16:50)
[2017-09-21] MEDS: GABAPENTIN 100 MG CAP PO ×2 (16:50→21:24)
[2017-09-21 16:52] LABS: BEDSIDE GLUCOSE 271 MG/DL (80-115)
[2017-09-21] MEDS: NS 1,000 ML IV ×2 (16:52→22:37)
[2017-09-21] MEDS: CIPROFLOXACIN 0.3% OPHTH SOLN 2.5ML OU ×2 (17:00→21:24)
[2017-09-21] MEDS: ACETAMINOPHEN 500 MG TAB PO (17:05)
[2017-09-21] MEDS: FLUCONAZOLE 100 MG TAB PO (17:06)
[2017-09-21 17:50] LABS: LACTIC ACID SEPSIS PROTOCOL 3.2 MMOL/L (0.4-2.0)
[2017-09-21] MEDS: ADVAIR HFA 230/21MCG INHALER INH (21:00)
[2017-09-21 21:20] LABS: BEDSIDE GLUCOSE 184 MG/DL (80-115)
[2017-09-21] MEDS: EUCERIN 120GM CREAM TOP (21:23)
[2017-09-21] MEDS: NYSTATIN 100,000 UNITS/GM TOPICAL PWD 15 GM TOP (21:24)
[2017-09-21] MEDS: BENZTROPINE 0.5 MG TAB PO (21:24)
[2017-09-21] MEDS: guaiFENesin ER 600 MG TAB PO (21:24)
[2017-09-21] MEDS: SIMVASTATIN 20 MG TAB PO (21:24)
[2017-09-21 21:42] LABS: LACTIC ACID SEPSIS PROTOCOL 1.9 MMOL/L (0.4-2.0)
[2017-09-22 07:12] LABS: BASO % 0.2 % (0.0-1.0); EOS % 0.1 % (0.0-3.0); HEMATOCRIT 28.1 % (42.0-52.0); IMMATURE GRANULOCYTE % 0.9 % (0-3.0); LYMPH # 0.5 10^3/uL (1.5-4.5); LYMPH % 2.8 % (24.0-44.0); MEAN CORPUSCULAR HEMOGLOBIN 30.8 pg (27.0-33.0); MEAN CORPUSCULAR HGB CONC 33.8 g/dl (32.0-36.5); MEAN CORPUSCULAR VOLUME 91.2 fl (80.0-96.0); MONO # 0.6 10^3/uL (0.0-0.8); MONO % 3.6 % (0.0-5.0); NEUTROPHILS % 92.4 % (36.0-66.0); PLATELET COUNT, AUTOMATED 187 10^3/uL (150-450); RED BLOOD COUNT 3.08 10^6/uL (4.30-6.10); RED CELL DISTRIBUTION WIDTH 14.7 % (11.5-14.5); WHITE BLOOD COUNT 17.3 10^3/uL (4.0-10.0)
[2017-09-22 07:18] LABS: ANION GAP 10 MEQ/L (8-16); BLOOD UREA NITROGEN 53 MG/DL (7-18); CALCIUM LEVEL 7.6 MG/DL (8.8-10.2); CARBON DIOXIDE LEVEL 21 MEQ/L (21-32); CHLORIDE LEVEL 107 MEQ/L (98-107); CREATININE FOR GFR 3.92 MG/DL (0.70-1.30); GLOMERULAR FILTRATION RATE 16.4 (>49); GLUCOSE, FASTING 121 MG/DL (70-100); POTASSIUM SERUM 4.1 MEQ/L (3.5-5.1); SODIUM LEVEL 138 MEQ/L (136-145)
[2017-09-22 07:28] LABS: HEMOGLOBIN 9.5 g/dl (13.5-17.5)
[2017-09-22] MEDS: ADVAIR HFA 230/21MCG INHALER INH ×2 (08:11→23:22)
[2017-09-22] MEDS: HALOPERIDOL 5 MG TAB PO (08:41)
[2017-09-22] MEDS: FLUCONAZOLE 100 MG TAB PO (08:42)
[2017-09-22] MEDS: guaiFENesin ER 600 MG TAB PO ×2 (08:42→20:59)
[2017-09-22] MEDS: SENOKOT S TAB PO ×2 (08:42→20:59)
[2017-09-22] MEDS: GABAPENTIN 100 MG CAP PO (08:42)
[2017-09-22] MEDS: ATENOLOL 50 MG TAB PO (08:42)
[2017-09-22] MEDS: ZIPRASIDONE 80 MG CAP (GEODON) PO (08:42)
[2017-09-22] MEDS: ASPIRIN 81 MG ENTERIC TAB PO (08:42)
[2017-09-22] MEDS: LEVEMIR (INSULIN DETEMIR) 1 UNITS/0.01ML SC ×2 (08:43→21:00)
[2017-09-22] MEDS: HumaLOG INSULIN (NovoLOG) PER UNIT SC ×4 (08:43→21:00)
[2017-09-22] MEDS: EUCERIN 120GM CREAM TOP ×2 (08:44→21:07)
[2017-09-22] MEDS: NYSTATIN 100,000 UNITS/GM TOPICAL PWD 15 GM TOP ×2 (08:44→21:07)
[2017-09-22] MEDS: CIPROFLOXACIN 0.3% OPHTH SOLN 2.5ML OU ×4 (08:44→21:06)
[2017-09-22] MEDS: NS 1,000 ML IV ×2 (08:49→12:37)
[2017-09-22 11:54] LABS: BEDSIDE GLUCOSE 110 MG/DL (80-115)
[2017-09-22] MEDS: PIPERACILLIN/TAZOBACTAM SOD 2.25 GM in D5W MINI-BAG PLUS 50 ML IV ×2 (12:37→19:50)
[2017-09-22] MEDS: IPRATROPIUM 0.5MG/ALBUTEROL 2.5MG INH SOL UD 3ML (DUONEB)(J7620) NEB ×2 (13:12→20:00)
[2017-09-22 13:22] LABS: VANCOMYCIN LEVEL TROUGH 15.6 UG/ML (10.0-20.0)
[2017-09-22] MEDS: ACETAMINOPHEN 500 MG TAB PO (13:59)
[2017-09-22] MEDS: VANCOMYCIN HCL 1,000 MG, VIAL MATE ADAPTER 1 EACH in D5W 250 ML IV (13:59)
[2017-09-22 17:10] LABS: BEDSIDE GLUCOSE 141 MG/DL (80-115)
[2017-09-22] MEDS: WARFARIN SOD 7.5 MG TAB PO (18:17)
[2017-09-22 19:55] LABS: BEDSIDE GLUCOSE 145 MG/DL (80-115)
[2017-09-22] MEDS: SIMVASTATIN 20 MG TAB PO (20:59)
[2017-09-22] MEDS: BENZTROPINE 0.5 MG TAB PO (20:59)
[2017-09-23] MEDS: PIPERACILLIN/TAZOBACTAM SOD 2.25 GM in D5W MINI-BAG PLUS 50 ML IV ×3 (03:14→20:51)
[2017-09-23] MEDS: IPRATROPIUM 0.5MG/ALBUTEROL 2.5MG INH SOL UD 3ML (DUONEB)(J7620) NEB ×5 (03:29→18:55)
[2017-09-23] MEDS: NS 1,000 ML IV ×2 (04:37→11:20)
[2017-09-23 06:46] LABS: BASO % 0.2 % (0.0-1.0); EOS # 0.2 10^3/uL (0.0-0.50); EOS % 1.3 % (0.0-3.0); HEMATOCRIT 24.9 % (42.0-52.0); HEMOGLOBIN 8.3 g/dl (13.5-17.5); IMMATURE GRANULOCYTE % 0.9 % (0-3.0); LYMPH # 0.5 10^3/uL (1.5-4.5); LYMPH % 3.2 % (24.0-44.0); MEAN CORPUSCULAR HEMOGLOBIN 30.7 pg (27.0-33.0); MEAN CORPUSCULAR HGB CONC 33.3 g/dl (32.0-36.5); MEAN CORPUSCULAR VOLUME 92.2 fl (80.0-96.0); MONO # 0.7 10^3/uL (0.0-0.8); MONO % 4.8 % (0.0-5.0); NEUTROPHILS # 13.7 10^3/uL (1.8-7.7); NEUTROPHILS % 89.6 % (36.0-66.0); PLATELET COUNT, AUTOMATED 165 10^3/uL (150-450); RED CELL DISTRIBUTION WIDTH 14.8 % (11.5-14.5); WHITE BLOOD COUNT 15.3 10^3/uL (4.0-10.0)
[2017-09-23 07:03] LABS: ANION GAP 9 MEQ/L (8-16); BLOOD UREA NITROGEN 55 MG/DL (7-18); CALCIUM LEVEL 7.2 MG/DL (8.8-10.2); CARBON DIOXIDE LEVEL 21 MEQ/L (21-32); CHLORIDE LEVEL 108 MEQ/L (98-107); CREATININE FOR GFR 3.74 MG/DL (0.70-1.30); GLOMERULAR FILTRATION RATE 17.3 (>49); GLUCOSE, FASTING 102 MG/DL (70-100); POTASSIUM SERUM 3.9 MEQ/L (3.5-5.1); SODIUM LEVEL 138 MEQ/L (136-145)
[2017-09-23] MEDS: ADVAIR HFA 230/21MCG INHALER INH ×2 (07:24→18:55)
[2017-09-23] MEDS: HumaLOG INSULIN (NovoLOG) PER UNIT SC ×4 (07:30→20:51)
[2017-09-23] MEDS: FLUCONAZOLE 100 MG TAB PO (09:14)
[2017-09-23] MEDS: ASPIRIN 81 MG ENTERIC TAB PO (09:14)
[2017-09-23] MEDS: guaiFENesin ER 600 MG TAB PO ×2 (09:14→20:51)
[2017-09-23] MEDS: ATENOLOL 50 MG TAB PO (09:14)
[2017-09-23] MEDS: SENOKOT S TAB PO ×2 (09:14→20:51)
[2017-09-23] MEDS: LEVEMIR (INSULIN DETEMIR) 1 UNITS/0.01ML SC ×2 (09:15→20:52)
[2017-09-23] MEDS: CIPROFLOXACIN 0.3% OPHTH SOLN 2.5ML OU ×4 (09:15→20:53)
[2017-09-23] MEDS: NYSTATIN 100,000 UNITS/GM TOPICAL PWD 15 GM TOP ×2 (09:15→20:52)
[2017-09-23] MEDS: EUCERIN 120GM CREAM TOP ×2 (09:15→20:52)
[2017-09-23 10:44] LABS: INR 2.19; PROTHROMBIN TIME 24.8 SECONDS (12.1-14.4)
[2017-09-23] MEDS: GABAPENTIN 100 MG CAP PO ×2 (11:19→20:51)
[2017-09-23] MEDS: FLUTICASONE PROP 0.05% NASAL SPRAY 16 GM (FLONASE) (11:19)
[2017-09-23 12:03] LABS: BEDSIDE GLUCOSE 119 MG/DL (80-115)
[2017-09-23 14:09] LABS: VANCOMYCIN LEVEL TROUGH 10.3 UG/ML (10.0-20.0)
[2017-09-23] MEDS: VANCOMYCIN HCL 1,000 MG, VIAL MATE ADAPTER 1 EACH in D5W 250 ML IV (14:15)
[2017-09-23 16:40] LABS: BEDSIDE GLUCOSE 155 MG/DL (80-115)
[2017-09-23] MEDS: WARFARIN SOD 7.5 MG TAB PO (17:37)
[2017-09-23] MEDS: ACETAMINOPHEN 500 MG TAB PO (18:02)
[2017-09-23 20:23] LABS: BEDSIDE GLUCOSE 161 MG/DL (80-115)
[2017-09-23] MEDS: BENZTROPINE 0.5 MG TAB PO (20:51)
[2017-09-23] MEDS: SIMVASTATIN 20 MG TAB PO (20:51)
[2017-09-24] MEDS: IPRATROPIUM 0.5MG/ALBUTEROL 2.5MG INH SOL UD 3ML (DUONEB)(J7620) NEB ×4 (02:42→21:19)
[2017-09-24] MEDS: PIPERACILLIN/TAZOBACTAM SOD 2.25 GM in D5W MINI-BAG PLUS 50 ML IV ×3 (04:52→23:33)
[2017-09-24] MEDS: ACETAMINOPHEN 500 MG TAB PO (05:45)
[2017-09-24 06:35] LABS: BASO % 0.3 % (0.0-1.0); EOS # 0.4 10^3/uL (0.0-0.50); EOS % 2.6 % (0.0-3.0); HEMATOCRIT 25.2 % (42.0-52.0); HEMOGLOBIN 8.2 g/dl (13.5-17.5); IMMATURE GRANULOCYTE % 1.8 % (0-3.0); LYMPH # 0.5 10^3/uL (1.5-4.5); LYMPH % 3.9 % (24.0-44.0); MEAN CORPUSCULAR HEMOGLOBIN 30.1 pg (27.0-33.0); MEAN CORPUSCULAR HGB CONC 32.5 g/dl (32.0-36.5); MEAN CORPUSCULAR VOLUME 92.6 fl (80.0-96.0); MONO # 0.9 10^3/uL (0.0-0.8); MONO % 6.4 % (0.0-5.0); NEUTROPHILS # 11.9 10^3/uL (1.8-7.7); PLATELET COUNT, AUTOMATED 154 10^3/uL (150-450); RED BLOOD COUNT 2.72 10^6/uL (4.30-6.10); RED CELL DISTRIBUTION WIDTH 14.6 % (11.5-14.5)
[2017-09-24 06:44] LABS: ANION GAP 10 MEQ/L (8-16); BLOOD UREA NITROGEN 53 MG/DL (7-18); CALCIUM LEVEL 7.1 MG/DL (8.8-10.2); CARBON DIOXIDE LEVEL 19 MEQ/L (21-32); CHLORIDE LEVEL 110 MEQ/L (98-107); CREATININE FOR GFR 3.55 MG/DL (0.70-1.30); GLOMERULAR FILTRATION RATE 18.4 (>49); GLUCOSE, FASTING 174 MG/DL (70-100); POTASSIUM SERUM 4.2 MEQ/L (3.5-5.1); SODIUM LEVEL 139 MEQ/L (136-145); VANCOMYCIN RANDOM 18.4 UG/ML
[2017-09-24 06:56] LABS: FERRITIN 185 NG/ML (26-388); IRON (FE) 15 UG/DL (65-175); PERCENT SATURATION 8.2 % (19.7-50.0); TOTAL IRON BINDING CAPACITY 184 UG/DL (250-450)
[2017-09-24] MEDS: methylPREDNISolone INJ 40 MG/1 ML VIAL (J2920) IV (08:06)
[2017-09-24] MEDS: ASPIRIN 81 MG ENTERIC TAB PO (08:07)
[2017-09-24] MEDS: HumaLOG INSULIN (NovoLOG) PER UNIT SC ×4 (08:07→23:18)
[2017-09-24] MEDS: guaiFENesin ER 600 MG TAB PO ×2 (08:07→23:16)
[2017-09-24] MEDS: ATENOLOL 50 MG TAB PO (08:07)
[2017-09-24] MEDS: GABAPENTIN 100 MG CAP PO ×2 (08:07→23:16)
[2017-09-24] MEDS: FLUCONAZOLE 100 MG TAB PO (08:07)
[2017-09-24] MEDS: LEVEMIR (INSULIN DETEMIR) 1 UNITS/0.01ML SC ×2 (08:07→23:18)
[2017-09-24] MEDS: CIPROFLOXACIN 0.3% OPHTH SOLN 2.5ML OU ×4 (08:08→23:19)
[2017-09-24] MEDS: SENOKOT S TAB PO ×2 (08:08→23:16)
[2017-09-24] MEDS: EUCERIN 120GM CREAM TOP ×2 (08:08→23:20)
[2017-09-24] MEDS: NYSTATIN 100,000 UNITS/GM TOPICAL PWD 15 GM TOP ×2 (08:08→23:19)
[2017-09-24] MEDS: FLUTICASONE PROP 0.05% NASAL SPRAY 16 GM (FLONASE) (08:08)
[2017-09-24] MEDS: ADVAIR HFA 230/21MCG INHALER INH ×2 (08:52→21:19)
[2017-09-24] MEDS: FERROUS GLUCONATE 324 MG TAB PO (11:11)
[2017-09-24] MEDS: VANCOMYCIN HCL 1,000 MG, VIAL MATE ADAPTER 1 EACH in D5W 250 ML IV (11:11)
[2017-09-24] MEDS: WARFARIN SOD 7.5 MG TAB PO (17:05)
[2017-09-24] MEDS: BENZTROPINE 0.5 MG TAB PO (23:16)
[2017-09-24] MEDS: SIMVASTATIN 20 MG TAB PO (23:16)
[2017-09-25] MEDS: IPRATROPIUM 0.5MG/ALBUTEROL 2.5MG INH SOL UD 3ML (DUONEB)(J7620) NEB ×4 (02:00→20:00)
[2017-09-25 03:36] LABS: BEDSIDE GLUCOSE 180 MG/DL (80-115)
[2017-09-25 03:36] LABS: BEDSIDE GLUCOSE 244 MG/DL (80-115)
[2017-09-25 03:36] LABS: BEDSIDE GLUCOSE 314 MG/DL (80-115)
[2017-09-25 03:36] LABS: BEDSIDE GLUCOSE 318 MG/DL (80-115)
[2017-09-25] MEDS: PIPERACILLIN/TAZOBACTAM SOD 2.25 GM in D5W MINI-BAG PLUS 50 ML IV ×3 (04:09→21:02)
[2017-09-25] MEDS: ACETAMINOPHEN 500 MG TAB PO ×2 (04:09→21:03)
[2017-09-25 05:46] LABS: BASO % 0.2 % (0.0-1.0); HEMATOCRIT 25.6 % (42.0-52.0); HEMOGLOBIN 8.4 g/dl (13.5-17.5); IMMATURE GRANULOCYTE % 2.3 % (0-3.0); LYMPH # 0.5 10^3/uL (1.5-4.5); LYMPH % 3.2 % (24.0-44.0); MEAN CORPUSCULAR HEMOGLOBIN 30.8 pg (27.0-33.0); MEAN CORPUSCULAR HGB CONC 32.8 g/dl (32.0-36.5); MEAN CORPUSCULAR VOLUME 93.8 fl (80.0-96.0); MONO # 0.7 10^3/uL (0.0-0.8); MONO % 3.9 % (0.0-5.0); NEUTROPHILS # 15.2 10^3/uL (1.8-7.7); NEUTROPHILS % 90.4 % (36.0-66.0); PLATELET COUNT, AUTOMATED 167 10^3/uL (150-450); RED BLOOD COUNT 2.73 10^6/uL (4.30-6.10); RED CELL DISTRIBUTION WIDTH 14.3 % (11.5-14.5); WHITE BLOOD COUNT 16.8 10^3/uL (4.0-10.0)
[2017-09-25 06:06] LABS: ANION GAP 9 MEQ/L (8-16); BLOOD UREA NITROGEN 54 MG/DL (7-18); CALCIUM LEVEL 7.2 MG/DL (8.8-10.2); CARBON DIOXIDE LEVEL 22 MEQ/L (21-32); CHLORIDE LEVEL 106 MEQ/L (98-107); CREATININE FOR GFR 3.37 MG/DL (0.70-1.30); GLOMERULAR FILTRATION RATE 19.5 (>49); GLUCOSE, FASTING 307 MG/DL (70-100); POTASSIUM SERUM 4.4 MEQ/L (3.5-5.1); SODIUM LEVEL 137 MEQ/L (136-145)
[2017-09-25] MEDS: ADVAIR HFA 230/21MCG INHALER INH ×2 (08:07→20:41)
[2017-09-25] MEDS: FLUCONAZOLE 100 MG TAB PO (08:14)
[2017-09-25] MEDS: GABAPENTIN 100 MG CAP PO ×2 (08:14→21:03)
[2017-09-25] MEDS: EUCERIN 120GM CREAM TOP ×2 (08:14→21:05)
[2017-09-25] MEDS: CIPROFLOXACIN 0.3% OPHTH SOLN 2.5ML OU ×4 (08:14→21:05)
[2017-09-25] MEDS: FLUTICASONE PROP 0.05% NASAL SPRAY 16 GM (FLONASE) (08:14)
[2017-09-25] MEDS: ASPIRIN 81 MG ENTERIC TAB PO (08:14)
[2017-09-25] MEDS: NYSTATIN 100,000 UNITS/GM TOPICAL PWD 15 GM TOP ×2 (08:14→21:05)
[2017-09-25] MEDS: guaiFENesin ER 600 MG TAB PO ×2 (08:15→21:02)
[2017-09-25] MEDS: FERROUS GLUCONATE 324 MG TAB PO (08:15)
[2017-09-25] MEDS: HumaLOG INSULIN (NovoLOG) PER UNIT SC ×4 (08:15→21:04)
[2017-09-25] MEDS: LEVEMIR (INSULIN DETEMIR) 1 UNITS/0.01ML SC ×2 (08:15→21:05)
[2017-09-25] MEDS: SENOKOT S TAB PO ×2 (08:15→21:03)
[2017-09-25] MEDS: ATENOLOL 50 MG TAB PO (08:15)
[2017-09-25] MEDS ORDERED: FUROSEMIDE 40 MG/4 ML VIAL (J1940) IV (09:00)
[2017-09-25] MEDS: methylPREDNISolone INJ 40 MG/1 ML VIAL (J2920) IV ×2 (10:01→17:11)
[2017-09-25] MEDS: VANCOMYCIN HCL 1,000 MG, VIAL MATE ADAPTER 1 EACH in D5W 250 ML IV (10:02)
[2017-09-25] MEDS: PANTOPRAZOLE 40MG TAB (PROTONIX) PO (10:02)
[2017-09-25] MEDS: ZIPRASIDONE 80 MG CAP (GEODON) PO ×2 (11:11→21:03)
[2017-09-25] MEDS: HALOPERIDOL 5 MG TAB PO (11:11)
[2017-09-25 11:39] LABS: BEDSIDE GLUCOSE 274 MG/DL (80-115)
[2017-09-25] MEDS: FUROSEMIDE 20 MG/2 ML VIAL (J1940) IV (13:19)
[2017-09-25 17:02] LABS: BEDSIDE GLUCOSE 296 MG/DL (80-115)
[2017-09-25] MEDS: WARFARIN SOD 7.5 MG TAB PO (17:11)
[2017-09-25 20:25] LABS: BEDSIDE GLUCOSE 303 MG/DL (80-115)
[2017-09-25] MEDS: SIMVASTATIN 20 MG TAB PO (21:03)
[2017-09-25] MEDS: BENZTROPINE 0.5 MG TAB PO (21:03)
[2017-09-26] MEDS: IPRATROPIUM 0.5MG/ALBUTEROL 2.5MG INH SOL UD 3ML (DUONEB)(J7620) NEB ×4 (00:24→20:19)
[2017-09-26] MEDS: methylPREDNISolone INJ 40 MG/1 ML VIAL (J2920) IV ×3 (02:36→21:22)
[2017-09-26] MEDS: PIPERACILLIN/TAZOBACTAM SOD 2.25 GM in D5W MINI-BAG PLUS 50 ML IV (03:23)
[2017-09-26] MEDS: ACETAMINOPHEN 500 MG TAB PO ×2 (03:23→21:24)
[2017-09-26 06:22] LABS: HEMOGLOBIN 8.5 g/dl (13.5-17.5); MEAN CORPUSCULAR HEMOGLOBIN 30.9 pg (27.0-33.0); MEAN CORPUSCULAR HGB CONC 32.7 g/dl (32.0-36.5); MEAN CORPUSCULAR VOLUME 94.5 fl (80.0-96.0); PLATELET COUNT, AUTOMATED 182 10^3/uL (150-450); RED BLOOD COUNT 2.75 10^6/uL (4.30-6.10); RED CELL DISTRIBUTION WIDTH 14.5 % (11.5-14.5); WHITE BLOOD COUNT 12.5 10^3/uL (4.0-10.0)
[2017-09-26 06:24] LABS: ADD MANUAL DIFFER YES; DIFF SLIDE NUMBER 17; POS COUNT POS FLAG; POSITIVE MORPH POS FLAG
[2017-09-26 06:35] LABS: ANION GAP 9 MEQ/L (8-16); BLOOD UREA NITROGEN 58 MG/DL (7-18); CALCIUM LEVEL 7.3 MG/DL (8.8-10.2); CARBON DIOXIDE LEVEL 19 MEQ/L (21-32); CHLORIDE LEVEL 110 MEQ/L (98-107); GLUCOSE, FASTING 364 MG/DL (70-100); POTASSIUM SERUM 5.1 MEQ/L (3.5-5.1); SODIUM LEVEL 138 MEQ/L (136-145); VANCOMYCIN RANDOM 20.4 UG/ML
[2017-09-26 06:43] LABS: PROTHROMBIN TIME 51.4 SECONDS (12.1-14.4)
[2017-09-26] MEDS: ADVAIR HFA 230/21MCG INHALER INH ×2 (07:43→20:19)
[2017-09-26 07:58] LABS: BANDS 4 % (< 11); LYMPHOCYTES 4 % (16-52); MONOCYTES 3 % (0-8); NEUTROPHILS 89 % (35-75); PLATELET ESTIMATE NORMAL (NORMAL); POLYCHROMASIA 1+
[2017-09-26 07:59] LABS: ANISOCYTOSIS 1+
[2017-09-26] MEDS: LEVEMIR (INSULIN DETEMIR) 1 UNITS/0.01ML SC ×2 (08:48→21:22)
[2017-09-26] MEDS: HumaLOG INSULIN (NovoLOG) PER UNIT SC ×4 (08:48→21:23)
[2017-09-26] MEDS: FERROUS GLUCONATE 324 MG TAB PO (08:49)
[2017-09-26] MEDS: HALOPERIDOL 5 MG TAB PO (08:49)
[2017-09-26] MEDS: GABAPENTIN 100 MG CAP PO ×2 (08:49→21:24)
[2017-09-26] MEDS: ZIPRASIDONE 80 MG CAP (GEODON) PO ×2 (08:49→21:24)
[2017-09-26] MEDS: guaiFENesin ER 600 MG TAB PO ×2 (08:49→21:24)
[2017-09-26] MEDS: SENOKOT S TAB PO ×2 (08:49→21:24)
[2017-09-26] MEDS: FLUTICASONE PROP 0.05% NASAL SPRAY 16 GM (FLONASE) (08:49)
[2017-09-26] MEDS: PANTOPRAZOLE 40MG TAB (PROTONIX) PO (08:49)
[2017-09-26] MEDS: FLUCONAZOLE 100 MG TAB PO (08:50)
[2017-09-26] MEDS: ATENOLOL 50 MG TAB PO (08:50)
[2017-09-26] MEDS: CIPROFLOXACIN 0.3% OPHTH SOLN 2.5ML OU ×4 (08:50→21:27)
[2017-09-26] MEDS: ASPIRIN 81 MG ENTERIC TAB PO (08:50)
[2017-09-26] MEDS: EUCERIN 120GM CREAM TOP ×2 (08:51→21:27)
[2017-09-26] MEDS: NYSTATIN 100,000 UNITS/GM TOPICAL PWD 15 GM TOP ×2 (08:51→21:27)
[2017-09-26] MEDS: VANCOMYCIN HCL 1,000 MG, VIAL MATE ADAPTER 1 EACH in D5W 250 ML IV (10:00)
[2017-09-26 11:25] LABS: BEDSIDE GLUCOSE 432 MG/DL (80-115)
[2017-09-26 11:42] LABS: BEDSIDE GLUCOSE 423 MG/DL (80-115)
[2017-09-26] MEDS: FUROSEMIDE 40 MG/4 ML VIAL (J1940) IV (13:02)
[2017-09-26] MEDS: cefTRIAXone SOD 1 GM in D5W MINI-BAG PLUS 50 ML IV (13:02)
[2017-09-26 16:52] LABS: BEDSIDE GLUCOSE 377 MG/DL (80-115)
[2017-09-26 20:58] LABS: BEDSIDE GLUCOSE 392 MG/DL (80-115)
[2017-09-26] MEDS: SIMVASTATIN 20 MG TAB PO (21:24)
[2017-09-26] MEDS: BENZTROPINE 0.5 MG TAB PO (21:27)
[2017-09-27] MEDS: cefTRIAXone SOD 1 GM in D5W MINI-BAG PLUS 50 ML IV ×2 (00:37→13:02)
[2017-09-27] MEDS: IPRATROPIUM 0.5MG/ALBUTEROL 2.5MG INH SOL UD 3ML (DUONEB)(J7620) NEB ×4 (00:47→21:11)
[2017-09-27 06:56] LABS: HEMATOCRIT 27.4 % (42.0-52.0); HEMOGLOBIN 8.9 g/dl (13.5-17.5); MEAN CORPUSCULAR HEMOGLOBIN 30.3 pg (27.0-33.0); MEAN CORPUSCULAR HGB CONC 32.5 g/dl (32.0-36.5); MEAN CORPUSCULAR VOLUME 93.2 fl (80.0-96.0); PLATELET COUNT, AUTOMATED 208 10^3/uL (150-450); RED BLOOD COUNT 2.94 10^6/uL (4.30-6.10); RED CELL DISTRIBUTION WIDTH 14.4 % (11.5-14.5)
[2017-09-27 07:06] LABS: ANION GAP 10 MEQ/L (8-16); BLOOD UREA NITROGEN 61 MG/DL (7-18); CALCIUM LEVEL 7.5 MG/DL (8.8-10.2); CARBON DIOXIDE LEVEL 21 MEQ/L (21-32); CHLORIDE LEVEL 108 MEQ/L (98-107); CREATININE FOR GFR 3.32 MG/DL (0.70-1.30); GLOMERULAR FILTRATION RATE 19.9 (>49); POTASSIUM SERUM 4.4 MEQ/L (3.5-5.1); SODIUM LEVEL 139 MEQ/L (136-145)
[2017-09-27 07:08] LABS: ADD MANUAL DIFFER YES; DIFF SLIDE NUMBER 7; POS COUNT POS FLAG; POSITIVE MORPH POS FLAG
[2017-09-27 07:09] LABS: GLUCOSE, FASTING 410 MG/DL (70-100)
[2017-09-27] MEDS: ADVAIR HFA 230/21MCG INHALER INH ×2 (07:36→21:11)
[2017-09-27 07:40] LABS: BANDS 2 % (< 11); LYMPHOCYTES 6 % (16-52); METAMYELOCYTES 1 % (0-0); MONOCYTES 1 % (0-8); MYELOCYTES 1 % (0-0); NEUTROPHILS 89 % (35-75)
[2017-09-27 07:42] LABS: ANISOCYTOSIS 1+; PLATELET ESTIMATE NORMAL (NORMAL); POLYCHROMASIA 1+; TOXIC GRANULATION 1+
[2017-09-27] MEDS: CIPROFLOXACIN 0.3% OPHTH SOLN 2.5ML OU ×4 (08:27→22:19)
[2017-09-27] MEDS: FLUTICASONE PROP 0.05% NASAL SPRAY 16 GM (FLONASE) (08:27)
[2017-09-27] MEDS: EUCERIN 120GM CREAM TOP ×2 (08:27→22:20)
[2017-09-27] MEDS: NYSTATIN 100,000 UNITS/GM TOPICAL PWD 15 GM TOP ×2 (08:27→22:19)
[2017-09-27] MEDS: HumaLOG INSULIN (NovoLOG) PER UNIT SC ×4 (08:28→22:18)
[2017-09-27] MEDS: LEVEMIR (INSULIN DETEMIR) 1 UNITS/0.01ML SC ×2 (08:28→22:17)
[2017-09-27] MEDS: FUROSEMIDE 40 MG/4 ML VIAL (J1940) IV (08:28)
[2017-09-27] MEDS: HALOPERIDOL 5 MG TAB PO (08:29)
[2017-09-27] MEDS: FLUCONAZOLE 100 MG TAB PO (08:29)
[2017-09-27] MEDS: ACETAMINOPHEN 500 MG TAB PO ×2 (08:30→18:12)
[2017-09-27] MEDS: GABAPENTIN 100 MG CAP PO ×2 (08:30→22:19)
[2017-09-27] MEDS: ASPIRIN 81 MG ENTERIC TAB PO (08:30)
[2017-09-27] MEDS: FERROUS GLUCONATE 324 MG TAB PO (08:31)
[2017-09-27] MEDS: guaiFENesin ER 600 MG TAB PO ×2 (08:31→22:19)
[2017-09-27] MEDS: PANTOPRAZOLE 40MG TAB (PROTONIX) PO (08:31)
[2017-09-27] MEDS: SENOKOT S TAB PO ×2 (08:31→22:19)
[2017-09-27] MEDS: ZIPRASIDONE 80 MG CAP (GEODON) PO ×2 (08:31→22:19)
[2017-09-27] MEDS: ATENOLOL 50 MG TAB PO (08:31)
[2017-09-27 09:55] LABS: PROTHROMBIN TIME 61.7 SECONDS (12.1-14.4)
[2017-09-27 10:18] LABS: INR 6.91
[2017-09-27] MEDS: methylPREDNISolone INJ 40 MG/1 ML VIAL (J2920) IV ×2 (10:38→22:18)
[2017-09-27 11:48] LABS: BEDSIDE GLUCOSE 397 MG/DL (80-115)
[2017-09-27 16:35] LABS: BEDSIDE GLUCOSE 410 MG/DL (80-115)
[2017-09-27 19:35] LABS: BEDSIDE GLUCOSE 529 MG/DL (80-115)
[2017-09-27] MEDS ORDERED: HumaLOG INSULIN (NovoLOG) PER UNIT SC (20:15)
[2017-09-27 20:19] LABS: BEDSIDE GLUCOSE 398 MG/DL (80-115)
[2017-09-27] MEDS: SIMVASTATIN 20 MG TAB PO (22:19)
[2017-09-27] MEDS: BENZTROPINE 0.5 MG TAB PO (22:19)
[2017-09-28] MEDS: cefTRIAXone SOD 1 GM in D5W MINI-BAG PLUS 50 ML IV ×3 (00:20→23:37)
[2017-09-28] MEDS: ACETAMINOPHEN 500 MG TAB PO (00:20)
[2017-09-28] MEDS: IPRATROPIUM 0.5MG/ALBUTEROL 2.5MG INH SOL UD 3ML (DUONEB)(J7620) NEB ×4 (01:48→19:37)
[2017-09-28] MEDS: ADVAIR HFA 230/21MCG INHALER INH ×2 (07:22→19:37)
[2017-09-28 07:29] LABS: BEDSIDE GLUCOSE 333 MG/DL (80-115)
[2017-09-28 07:39] LABS: HEMATOCRIT 26.8 % (42.0-52.0); HEMOGLOBIN 8.8 g/dl (13.5-17.5); MEAN CORPUSCULAR HEMOGLOBIN 30.2 pg (27.0-33.0); MEAN CORPUSCULAR HGB CONC 32.8 g/dl (32.0-36.5); MEAN CORPUSCULAR VOLUME 92.1 fl (80.0-96.0); PLATELET COUNT, AUTOMATED 206 10^3/uL (150-450); RED BLOOD COUNT 2.91 10^6/uL (4.30-6.10); RED CELL DISTRIBUTION WIDTH 14.4 % (11.5-14.5)
[2017-09-28 07:49] LABS: INR 5.98
[2017-09-28 08:01] LABS: ADD MANUAL DIFFER YES; DIFF SLIDE NUMBER 5; POS COUNT POS FLAG; POSITIVE MORPH POS FLAG
[2017-09-28 08:18] LABS: ANION GAP 10 MEQ/L (8-16); BLOOD UREA NITROGEN 68 MG/DL (7-18); CALCIUM LEVEL 6.9 MG/DL (8.8-10.2); CARBON DIOXIDE LEVEL 20 MEQ/L (21-32); CHLORIDE LEVEL 109 MEQ/L (98-107); CREATININE FOR GFR 3.04 MG/DL (0.70-1.30); GLUCOSE, FASTING 318 MG/DL (70-100); POTASSIUM SERUM 4.7 MEQ/L (3.5-5.1); SODIUM LEVEL 139 MEQ/L (136-145)
[2017-09-28] MEDS: FUROSEMIDE 40 MG/4 ML VIAL (J1940) IV (08:47)
[2017-09-28] MEDS: LEVEMIR (INSULIN DETEMIR) 1 UNITS/0.01ML SC ×2 (08:48→20:27)
[2017-09-28] MEDS: HumaLOG INSULIN (NovoLOG) PER UNIT SC ×3 (08:49→17:55)
[2017-09-28] MEDS: guaiFENesin ER 600 MG TAB PO ×2 (08:49→20:28)
[2017-09-28] MEDS: ASPIRIN 81 MG ENTERIC TAB PO (08:49)
[2017-09-28] MEDS: FERROUS GLUCONATE 324 MG TAB PO (08:49)
[2017-09-28] MEDS: GABAPENTIN 100 MG CAP PO ×2 (08:49→20:28)
[2017-09-28] MEDS: ATENOLOL 50 MG TAB PO (08:50)
[2017-09-28] MEDS: ZIPRASIDONE 80 MG CAP (GEODON) PO ×2 (08:50→20:28)
[2017-09-28] MEDS: FLUCONAZOLE 100 MG TAB PO (08:50)
[2017-09-28] MEDS: PANTOPRAZOLE 40MG TAB (PROTONIX) PO (08:50)
[2017-09-28] MEDS: predniSONE 20 MG TAB PO (08:50)
[2017-09-28] MEDS: SENOKOT S TAB PO ×2 (08:50→20:28)
[2017-09-28] MEDS: EUCERIN 120GM CREAM TOP ×2 (08:51→20:29)
[2017-09-28] MEDS: HALOPERIDOL 5 MG TAB PO (08:51)
[2017-09-28] MEDS: CIPROFLOXACIN 0.3% OPHTH SOLN 2.5ML OU ×4 (08:52→20:29)
[2017-09-28] MEDS: FLUTICASONE PROP 0.05% NASAL SPRAY 16 GM (FLONASE) (08:52)
[2017-09-28] MEDS: NYSTATIN 100,000 UNITS/GM TOPICAL PWD 15 GM TOP ×2 (08:52→20:28)
[2017-09-28 09:28] LABS: BANDS 5 % (< 11); LYMPHOCYTES 3 % (16-52); METAMYELOCYTES 3 % (0-0); MONOCYTES 5 % (0-8); MYELOCYTES 4 % (0-0); NEUTROPHILS 80 % (35-75); PLATELET ESTIMATE NORMAL (NORMAL)
[2017-09-28 12:23] LABS: BEDSIDE GLUCOSE 267 MG/DL (80-115)
[2017-09-28 16:52] LABS: BEDSIDE GLUCOSE 272 MG/DL (80-115)
[2017-09-28 20:00] LABS: BEDSIDE GLUCOSE 272 MG/DL (80-115)
[2017-09-28] MEDS: BENZTROPINE 0.5 MG TAB PO (20:28)
[2017-09-29] MEDS: IPRATROPIUM 0.5MG/ALBUTEROL 2.5MG INH SOL UD 3ML (DUONEB)(J7620) NEB ×4 (01:43→21:21)
[2017-09-29 08:06] LABS: BEDSIDE GLUCOSE 250 MG/DL (80-115)
[2017-09-29] MEDS: SENOKOT S TAB PO ×2 (08:20→20:46)
[2017-09-29] MEDS: FLUCONAZOLE 100 MG TAB PO (08:20)
[2017-09-29] MEDS: PANTOPRAZOLE 40MG TAB (PROTONIX) PO (08:20)
[2017-09-29] MEDS: HALOPERIDOL 5 MG TAB PO (08:20)
[2017-09-29] MEDS: ZIPRASIDONE 80 MG CAP (GEODON) PO ×2 (08:20→20:46)
[2017-09-29] MEDS: ATENOLOL 50 MG TAB PO (08:21)
[2017-09-29] MEDS: guaiFENesin ER 600 MG TAB PO ×2 (08:21→20:46)
[2017-09-29] MEDS: FERROUS GLUCONATE 324 MG TAB PO (08:21)
[2017-09-29] MEDS: predniSONE 20 MG TAB PO (08:21)
[2017-09-29] MEDS: ASPIRIN 81 MG ENTERIC TAB PO (08:21)
[2017-09-29] MEDS: GABAPENTIN 100 MG CAP PO ×2 (08:21→20:46)
[2017-09-29] MEDS: HumaLOG INSULIN (NovoLOG) PER UNIT SC ×3 (08:22→17:26)
[2017-09-29] MEDS: FUROSEMIDE 40 MG/4 ML VIAL (J1940) IV (08:23)
[2017-09-29] MEDS: EUCERIN 120GM CREAM TOP ×2 (08:23→20:47)
[2017-09-29] MEDS: CIPROFLOXACIN 0.3% OPHTH SOLN 2.5ML OU ×4 (08:23→20:47)
[2017-09-29] MEDS: LEVEMIR (INSULIN DETEMIR) 1 UNITS/0.01ML SC ×3 (08:23→20:46)
[2017-09-29] MEDS: NYSTATIN 100,000 UNITS/GM TOPICAL PWD 15 GM TOP ×2 (08:24→20:47)
[2017-09-29] MEDS: FLUTICASONE PROP 0.05% NASAL SPRAY 16 GM (FLONASE) (08:24)
[2017-09-29] MEDS: ADVAIR HFA 230/21MCG INHALER INH ×2 (09:13→21:00)
[2017-09-29 09:30] LABS: IONIZED CALCIUM 4.2 MG/DL (4.5-5.3)
[2017-09-29 09:32] LABS: HEMATOCRIT 33.3 % (42.0-52.0); HEMOGLOBIN 10.4 g/dl (13.5-17.5); MEAN CORPUSCULAR HEMOGLOBIN 30.2 pg (27.0-33.0); MEAN CORPUSCULAR HGB CONC 31.2 g/dl (32.0-36.5); MEAN CORPUSCULAR VOLUME 96.8 fl (80.0-96.0); PLATELET COUNT, AUTOMATED 263 10^3/uL (150-450); RED BLOOD COUNT 3.44 10^6/uL (4.30-6.10); RED CELL DISTRIBUTION WIDTH 14.8 % (11.5-14.5); WHITE BLOOD COUNT 18.9 10^3/uL (4.0-10.0)
[2017-09-29 09:50] LABS: ADD MANUAL DIFFER YES; DIFF SLIDE NUMBER 70; POS COUNT POS FLAG; POSITIVE MORPH POS FLAG
[2017-09-29 09:54] LABS: INR 4.45; PROTHROMBIN TIME 43.5 SECONDS (12.1-14.4)
[2017-09-29 09:57] LABS: POTASSIUM SERUM 4.2 MEQ/L (3.5-5.1)
[2017-09-29 10:03] LABS: ANION GAP 14 MEQ/L (8-16); BLOOD UREA NITROGEN 80 MG/DL (7-18); CALCIUM LEVEL 6.8 MG/DL (8.8-10.2); CARBON DIOXIDE LEVEL 21 MEQ/L (21-32); CHLORIDE LEVEL 108 MEQ/L (98-107); CREATININE FOR GFR 3.19 MG/DL (0.70-1.30); GLOMERULAR FILTRATION RATE 20.8 (>49); GLUCOSE, FASTING 250 MG/DL (70-100); PHOSPHORUS LEVEL 3.7 MG/DL (2.5-4.9); POTASSIUM SERUM 4.2 MEQ/L (3.5-5.1); SODIUM LEVEL 143 MEQ/L (136-145)
[2017-09-29 10:28] LABS: BANDS 3 % (< 11); LYMPHOCYTES 11 % (16-52); METAMYELOCYTES 3 % (0-0); MONOCYTES 4 % (0-8); MYELOCYTES 1 % (0-0); NEUTROPHILS 78 % (35-75)
[2017-09-29 10:29] LABS: ANISOCYTOSIS 1+; PLATELET ESTIMATE NORMAL (NORMAL); POLYCHROMASIA 1+
[2017-09-29 10:36] LABS: ANION GAP 16 MEQ/L (8-16); BLOOD UREA NITROGEN 76 MG/DL (7-18); CALCIUM LEVEL 6.9 MG/DL (8.8-10.2); CARBON DIOXIDE LEVEL 19 MEQ/L (21-32); CHLORIDE LEVEL 109 MEQ/L (98-107); CREATININE FOR GFR 3.19 MG/DL (0.70-1.30); GLOMERULAR FILTRATION RATE 20.8 (>49); GLUCOSE, FASTING 244 MG/DL (70-100); MAGNESIUM LEVEL 1.8 MG/DL (1.8-2.4); PHOSPHORUS LEVEL 3.7 MG/DL (2.5-4.9); SODIUM LEVEL 144 MEQ/L (136-145)
[2017-09-29] MEDS: cefTRIAXone SOD 1 GM in D5W MINI-BAG PLUS 50 ML IV (12:15)
[2017-09-29 12:18] LABS: BEDSIDE GLUCOSE 117 MG/DL (80-115)
[2017-09-29 12:27] LABS: ERYTHROCYTE SEDIMENTATION RATE 106 mm/hr (0-20)
[2017-09-29 13:01] LABS: C REACTIVE PROTEIN QUANTITATIV 1.62 MG/DL (0.00-0.30)
[2017-09-29] MEDS: CALCIUM GLUCONATE 1,000 MG in D5W MINI-BAG PLUS 100 ML IV (13:19)
[2017-09-29 16:38] LABS: BEDSIDE GLUCOSE 132 MG/DL (80-115)
[2017-09-29 20:32] LABS: BEDSIDE GLUCOSE 96 MG/DL (80-115)
[2017-09-29] MEDS: AUGMENTIN 500 MG TAB PO (20:46)
[2017-09-29] MEDS: BENZTROPINE 0.5 MG TAB PO (20:46)
[2017-09-29] MEDS: ACETAMINOPHEN 500 MG TAB PO (22:28)
[2017-09-30] MEDS: IPRATROPIUM 0.5MG/ALBUTEROL 2.5MG INH SOL UD 3ML (DUONEB)(J7620) NEB ×3 (01:21→13:27)
[2017-09-30 06:39] LABS: HEMATOCRIT 29.2 % (42.0-52.0); HEMOGLOBIN 9.3 g/dl (13.5-17.5); MEAN CORPUSCULAR HEMOGLOBIN 30.4 pg (27.0-33.0); MEAN CORPUSCULAR HGB CONC 31.8 g/dl (32.0-36.5); MEAN CORPUSCULAR VOLUME 95.4 fl (80.0-96.0); PLATELET COUNT, AUTOMATED 202 10^3/uL (150-450); RED BLOOD COUNT 3.06 10^6/uL (4.30-6.10); RED CELL DISTRIBUTION WIDTH 14.7 % (11.5-14.5); WHITE BLOOD COUNT 16.6 10^3/uL (4.0-10.0)
[2017-09-30 06:48] LABS: PROTHROMBIN TIME 33.5 SECONDS (12.1-14.4)
[2017-09-30 06:52] LABS: ANION GAP 11 MEQ/L (8-16); BLOOD UREA NITROGEN 78 MG/DL (7-18); CALCIUM LEVEL 6.8 MG/DL (8.8-10.2); CARBON DIOXIDE LEVEL 22 MEQ/L (21-32); CHLORIDE LEVEL 112 MEQ/L (98-107); CREATININE FOR GFR 2.84 MG/DL (0.70-1.30); GLOMERULAR FILTRATION RATE 23.8 (>49); GLUCOSE, FASTING 117 MG/DL (70-100); POTASSIUM SERUM 4.2 MEQ/L (3.5-5.1); SODIUM LEVEL 145 MEQ/L (136-145)
[2017-09-30 07:00] LABS: ADD MANUAL DIFFER YES; DIFF SLIDE NUMBER 41; POS COUNT POS FLAG; POSITIVE MORPH POS FLAG
[2017-09-30 07:11] LABS: BANDS 2 % (< 11); LYMPHOCYTES 11 % (16-52); METAMYELOCYTES 3 % (0-0); MONOCYTES 5 % (0-8); MYELOCYTES 1 % (0-0); NEUTROPHILS 78 % (35-75); PLATELET ESTIMATE NORMAL (NORMAL)
[2017-09-30] MEDS: ADVAIR HFA 230/21MCG INHALER INH (07:56)
[2017-09-30 08:22] LABS: BEDSIDE GLUCOSE 142 MG/DL (80-115)
[2017-09-30] MEDS: FUROSEMIDE 40 MG/4 ML VIAL (J1940) IV (08:42)
[2017-09-30] MEDS: predniSONE 20 MG TAB PO (08:42)
[2017-09-30] MEDS: guaiFENesin ER 600 MG TAB PO (08:42)
[2017-09-30] MEDS: SENOKOT S TAB PO (08:42)
[2017-09-30] MEDS: PANTOPRAZOLE 40MG TAB (PROTONIX) PO (08:42)
[2017-09-30] MEDS: ASPIRIN 81 MG ENTERIC TAB PO (08:43)
[2017-09-30] MEDS: GABAPENTIN 100 MG CAP PO (08:43)
[2017-09-30] MEDS: FERROUS GLUCONATE 324 MG TAB PO (08:43)
[2017-09-30] MEDS: ATENOLOL 50 MG TAB PO (08:43)
[2017-09-30] MEDS: FLUCONAZOLE 100 MG TAB PO (08:43)
[2017-09-30] MEDS: ZIPRASIDONE 80 MG CAP (GEODON) PO (08:43)
[2017-09-30] MEDS: AUGMENTIN 500 MG TAB PO (08:44)
[2017-09-30] MEDS: HALOPERIDOL 5 MG TAB PO (08:44)
[2017-09-30] MEDS: HumaLOG INSULIN (NovoLOG) PER UNIT SC ×2 (08:45→12:00)
[2017-09-30] MEDS: FLUTICASONE PROP 0.05% NASAL SPRAY 16 GM (FLONASE) (08:45)
[2017-09-30] MEDS: CIPROFLOXACIN 0.3% OPHTH SOLN 2.5ML OU ×2 (08:45→12:29)
[2017-09-30] MEDS: EUCERIN 120GM CREAM TOP (08:45)
[2017-09-30] MEDS: LEVEMIR (INSULIN DETEMIR) 1 UNITS/0.01ML SC (08:45)
[2017-09-30] MEDS: NYSTATIN 100,000 UNITS/GM TOPICAL PWD 15 GM TOP (08:46)
[2017-09-30 12:03] LABS: BEDSIDE GLUCOSE 67 MG/DL (80-115)
[2017-09-30 12:16] LABS: BEDSIDE GLUCOSE 74 MG/DL (80-115)
[2017-09-30] MEDS: CALCIUM/VITAMIN D 500 MG TAB PO (12:28)
[2017-10-01] MEDS ORDERED: TORSEMIDE 20 MG TAB PO (09:00)
== END 2017-09-30 14:45 | disposition home health service (06) | DRG 871 ==
LOC: M ED 08:00 → M ED INP 12:37 → M MS5PR 13:52
DX: A40.8 Other streptococcal sepsis (principal); G93.41 Metabolic encephalopathy; N17.9 Acute kidney failure, unspecified; Z68.41 Body mass index [BMI] 40.0-44.9, adult; L03.314 Cellulitis of groin; E87.2 Acidosis; N18.4 Chronic kidney disease, stage 4 (severe); L03.116 Cellulitis of left lower limb; I82.432 Acute embolism and thrombosis of left popliteal vein; J44.1 Chronic obstructive pulmonary disease with (acute) exacerbation; D68.32 Hemorrhagic disorder due to extrinsic circulating anticoagulants; E11.22 Type 2 diabetes mellitus with diabetic chronic kidney disease; I25.10 Atherosclerotic heart disease of native coronary artery without angina pectoris; I25.2 Old myocardial infarction; F25.9 Schizoaffective disorder, unspecified; I12.9 Hypertensive chronic kidney disease with stage 1 through stage 4 chronic kidney disease, or unspecified chronic kidney disease; E78.5 Hyperlipidemia, unspecified; E66.01 Morbid (severe) obesity due to excess calories; R65.20 Severe sepsis without septic shock; E11.51 Type 2 diabetes mellitus with diabetic peripheral angiopathy without gangrene; E11.40 Type 2 diabetes mellitus with diabetic neuropathy, unspecified; B37.2 Candidiasis of skin and nail; E11.65 Type 2 diabetes mellitus with hyperglycemia; D50.9 Iron deficiency anemia, unspecified; F17.210 Nicotine dependence, cigarettes, uncomplicated; E83.51 Hypocalcemia; E86.0 Dehydration; L23.9 Allergic contact dermatitis, unspecified cause; G54.6 Phantom limb syndrome with pain; I72.3 Aneurysm of iliac artery; I87.2 Venous insufficiency (chronic) (peripheral); Z89.422 Acquired absence of other left toe(s); Z89.611 Acquired absence of right leg above knee; Z79.82 Long term (current) use of aspirin; Z79.4 Long term (current) use of insulin; Z79.899 Other long term (current) drug therapy; Z79.01 Long term (current) use of anticoagulants; Z99.3 Dependence on wheelchair; Z95.5 Presence of coronary angioplasty implant and graft; Z88.8 Allergy status to other drugs, medicaments and biological substances

== ENCOUNTER → 2017-10-01 | Outpatient (REF) | payer MEDICARE, MEDICAID ==
[2017-10-01 14:08] LABS: INR 1.67
== END ==
LOC: M LAB REF 14:05
DX: Z79.01 Long term (current) use of anticoagulants (principal)
CPT/HCPCS: 85610

== ENCOUNTER → 2017-10-02 | Outpatient (REF) | payer MEDICARE, MEDICAID ==
[2017-10-02 11:46] LABS: INR 1.48; PROTHROMBIN TIME 18.1 SECONDS (12.1-14.4)
== END ==
LOC: M LAB REF 11:11
DX: Z79.899 Other long term (current) drug therapy (principal); Z79.01 Long term (current) use of anticoagulants
CPT/HCPCS: 85610

== ENCOUNTER 2017-10-18 16:41 | Emergency (ER) | payer MEDICARE, MEDICAID ==
[2017-10-18 18:10] LABS: HEMATOCRIT 24.7 % (42.0-52.0); MEAN CORPUSCULAR HEMOGLOBIN 31.5 pg (27.0-33.0); MEAN CORPUSCULAR HGB CONC 32.4 g/dl (32.0-36.5); MEAN CORPUSCULAR VOLUME 97.2 fl (80.0-96.0); PLATELET COUNT, AUTOMATED 246 10^3/uL (150-450); RED BLOOD COUNT 2.54 10^6/uL (4.30-6.10); RED CELL DISTRIBUTION WIDTH 16.6 % (11.5-14.5); WHITE BLOOD COUNT 8.3 10^3/uL (4.0-10.0)
[2017-10-18 18:38] LABS: ANION GAP 9 MEQ/L (8-16); BLOOD UREA NITROGEN 30 MG/DL (7-18); CALCIUM LEVEL 7.6 MG/DL (8.8-10.2); CARBON DIOXIDE LEVEL 26 MEQ/L (21-32); CHLORIDE LEVEL 107 MEQ/L (98-107); CREATININE FOR GFR 2.83 MG/DL (0.70-1.30); GLOMERULAR FILTRATION RATE 23.9 (>49); GLUCOSE, FASTING 220 MG/DL (70-100); POTASSIUM SERUM 4.3 MEQ/L (3.5-5.1); SODIUM LEVEL 142 MEQ/L (136-145)
[2017-10-18] MEDS: CLINDAMYCIN 150 MG CAP PO (19:24)
== END 2017-10-18 20:13 | disposition home or self-care (01) ==
LOC: M ED 16:41
DX: L03.116 Cellulitis of left lower limb (principal); E11.9 Type 2 diabetes mellitus without complications; I10 Essential (primary) hypertension; J44.9 Chronic obstructive pulmonary disease, unspecified; Z86.718 Personal history of other venous thrombosis and embolism; Z72.0 Tobacco use; Z79.82 Long term (current) use of aspirin; Z79.4 Long term (current) use of insulin; Z79.01 Long term (current) use of anticoagulants; Z79.899 Other long term (current) drug therapy; Z88.8 Allergy status to other drugs, medicaments and biological substances
CPT/HCPCS: 80048

== ENCOUNTER 2018-02-05 03:30 | Emergency (ER) | payer MEDICARE, MEDICAID ==
[2018-02-05] MEDS: AUGMENTIN 875 MG TAB PO (04:45)
[2018-02-05] MEDS: MUPIROCIN 2% OINT 22 GM TUBE TOP (04:45)
== END 2018-02-05 06:41 | disposition home or self-care (01) ==
LOC: M ED 03:30
DX: L97.929 Non-pressure chronic ulcer of unspecified part of left lower leg with unspecified severity (principal); E11.51 Type 2 diabetes mellitus with diabetic peripheral angiopathy without gangrene; I10 Essential (primary) hypertension; I25.10 Atherosclerotic heart disease of native coronary artery without angina pectoris; I73.9 Peripheral vascular disease, unspecified; D64.9 Anemia, unspecified; F25.9 Schizoaffective disorder, unspecified; Z86.718 Personal history of other venous thrombosis and embolism; Z95.5 Presence of coronary angioplasty implant and graft; Z79.01 Long term (current) use of anticoagulants; F17.210 Nicotine dependence, cigarettes, uncomplicated
CPT/HCPCS: 99284

== ENCOUNTER 2018-02-21 13:16 | Emergency (ER) | payer MEDICARE, MEDICAID | END 2018-02-21 18:57 | disposition home or self-care (01) | LOC: M ED 13:16 | DX: E10.65 Type 1 diabetes mellitus with hyperglycemia (principal); I87.2 Venous insufficiency (chronic) (peripheral); W01.10XA Fall on same level from slipping, tripping and stumbling with subsequent striking against unspecified object, initial encounter; Y92.099 Unspecified place in other non-institutional residence as the place of occurrence of the external cause; Y93.89 Activity, other specified; Y99.9 Unspecified external cause status; I25.10 Atherosclerotic heart disease of native coronary artery without angina pectoris; I10 Essential (primary) hypertension; E10.40 Type 1 diabetes mellitus with diabetic neuropathy, unspecified; N18.3 Chronic kidney disease, stage 3 (moderate); J44.9 Chronic obstructive pulmonary disease, unspecified; F20.9 Schizophrenia, unspecified; Z95.5 Presence of coronary angioplasty implant and graft; Z72.0 Tobacco use; Z79.82 Long term (current) use of aspirin; Z79.4 Long term (current) use of insulin; Z79.01 Long term (current) use of anticoagulants; Z79.899 Other long term (current) drug therapy; Z88.8 Allergy status to other drugs, medicaments and biological substances | CPT/HCPCS: 99284 ==

== ENCOUNTER 2018-03-18 02:21 | Inpatient (IN) | payer MEDICARE, MEDICAID ==
[~2018-03-18] VITALS: Ht 172.7 cm; Wt 11.5 kg
[~2018-03-18 02:21] MED LIST changes: -ACET1TAB17 PO; +ACET1TAB55 PO; +ADVA230A INH; +AMLO5TAB6 PO; +AMOX500T2 PO; +AMOX875T2 PO; +ASPI1TAB15 PO; +AUGM500T34 PO; +BACITAB PO; +BISAC5TA PO; +CAPT62TA PO; +COUM1TAB17 PO; -ENEMENE16 PR; +ENEMENE4 PR; +EUCE12CR TOP; +FERR32TA PO; +FLOM0.4C39 PO; +FLUTISP; +GABA-1171 PO; +INSUDET SC; +INSUH10VL SC; +INSUHUMDS SC; +LASI40TA9 PO; +LOVE0.8I SC; +MILK120011 PO; -MILKSUS PO; +MUCI600T37 PO; +NYAM10003 TOP; +NYST1POW9 TOP; +PATIENT COMMENT; +PEG1POW PO; +PERCOCET PO; +PRED10TA2 PO; +SANT250O8 TOP; +SENN1TAB2 PO; +STOO1CAP9 PO
[2018-03-18] MEDS ORDERED: IPRATROPIUM 0.5MG/ALBUTEROL 2.5MG INH SOL UD 3ML (DUONEB)(J7620) NEB ONE (03:15)
[2018-03-18] MEDS ORDERED: amLODIPine 5 MG TAB PO ONE (04:00)
[2018-03-18 04:07] LABS: BASO # 0.1 10^3/uL (0.0-0.2); BASO % 0.5 % (0.0-1.0); EOS # 0.3 10^3/uL (0.0-0.50); EOS % 2.7 % (0.0-3.0); HEMATOCRIT 28.7 % (42.0-52.0); HEMOGLOBIN 9.3 g/dl (13.5-17.5); LYMPH % 8.9 % (24.0-44.0); MEAN CORPUSCULAR HEMOGLOBIN 30.7 pg (27.0-33.0); MEAN CORPUSCULAR HGB CONC 32.4 g/dl (32.0-36.5); MEAN CORPUSCULAR VOLUME 94.7 fl (80.0-96.0); MONO % 9.1 % (0.0-5.0); NEUTROPHILS # 8.5 10^3/uL (1.8-7.7); NEUTROPHILS % 77.8 % (36.0-66.0); PLATELET COUNT, AUTOMATED 181 10^3/uL (150-450); RED BLOOD COUNT 3.03 10^6/uL (4.30-6.10); WHITE BLOOD COUNT 10.9 10^3/uL (4.0-10.0)
[2018-03-18 04:35] LABS: CALCIUM LEVEL 7.6 MG/DL (8.8-10.2); CREATININE FOR GFR 4.45 MG/DL (0.70-1.30); GLOMERULAR FILTRATION RATE 14.2 (>49); POTASSIUM SERUM 4.5 MEQ/L (3.5-5.1)
[2018-03-18] MEDS ORDERED: NS 1,000 ML IV ONE (05:00)
[2018-03-18] MEDS ORDERED: GLUCAGON FOR INJ 1 MG VIAL (J1610) SC PRN (05:30)
[2018-03-18] MEDS ORDERED: ONDANSETRON 4MG/2ML VIAL (J2405) IV PRN (05:30)
[2018-03-18] MEDS ORDERED: GLUCOSE 4 GM CHEW TABLET PO PRN (05:30)
[2018-03-18] MEDS ORDERED: BISACODYL 10 MG SUPP PR PRN (05:30)
[2018-03-18] MEDS ORDERED: DEXTROSE 50% 50 ML SYRINGE IV PRN (05:30)
[2018-03-18] MEDS ORDERED: hydrALAZINE INJ 20 MG/ML VIAL IV PRN (05:45)
[2018-03-18] MEDS ORDERED: AMLO10TA5 PO (05:50)
--- NOTE | 2018-03-18 06:14 | HPEPDOC ---
[facility] Medical History & Physical Date of Admission Mar 18, 2018 History and Physical PRIMARY CARE PROVIDER: none ATTENDING: Dr. Mejia CODE STATUS: FULL CODE CHIEF COMPLAINT: dyspnea, weakness HISTORY OF PRESENT ILLNESS: 67-year-old male with significant past medical history of CKD stage III, right sided AKA, diastolic heart failure, and COPD presenting with a week long history of progressively worsening weakness and shortness of breath. He admits to a cough productive of clear, thick sputum that he has chronically and denies any fevers, chills, rhinorrhea, or nasal congestion. Does admit to sick contacts in the past 2 weeks who have had common cold-like symptoms. He lives at home alone and says he hasn't been able to find his medications for the last week so he hasn't taken any of them for at least a week. He also states it is difficult for him to see the bottles because of his cataracts. PAST MEDICAL HISTORY: 1. Hx of left lower extremity cellulitis. 2. hx of sepsis with left lower extremity cellulitis. 3. Transient streptococcus group C bacteremia. 4. Peripheral arterial disease. 5. Status post right above-knee amputation and left transmetatarsal amputation with left common femoral, superficial femoral, profunda femoris artery endarterectomy, on chronic Coumadin. 6. A 3.6 cm left common iliac artery aneurysm, for which the patient has refused repair and surgery. 7. Left groin and abdominal pannus candidiasis. 8. Left partial deep vein thrombosis of the popliteal vein, on chronic Coumadin. 9. COPD 10. Acute kidney injury on chronic kidney disease. 11. Schizoaffective disorder. 12. Hypertension. 13. History of coronary artery disease with history of coronary artery stents in the past. 14. Diabetic neuropathy. 15. 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 16. Morbid obesity, body mass index of 33.2 PAST SURGICAL HISTORY: 1. Left transmetatarsal amputation, right above-knee amputation. 2. Left common femoral, superficial femoral, and profunda femoris artery endarterectomy. 3. Left groin wound excisional debridement at the site of previous endarterectomy. 4. Repair of left common femoral artery pseudoaneurysm with evacuation of hematoma. 5. Cardiac stents in 2016. SOCIAL HISTORY: 5 PPD for 57 years. No EtOH. No illicit drugs. Lives alone at home. FAMILY HISTORY: non-contributory ALLERGIES: Please see below. REVIEW OF SYSTEMS: HEENT: Denies sore throat,headache, admits to difficulty seeing 2/2 cataracts CARDIOVASCULAR: Denies chest pain, palpitations, RESPIRATORY: Admits to SOB, productive cough of thick clear sputum. GASTROINTESTINAL: denies nausea,vomiting, abdominal pain, constipation, diarrhea GENITOURINARY: Denies dysuria,urinary urgency, frequency. MUSCULOSKELETAL: Denies myalgias,arthralgias NEUROLOGICAL: Denies any focal weakness HOME MEDICATIONS: Please see below. PHYSICAL EXAMINATION: Vitals: (see below) General: Alert, oriented, no acute distress, laying comfortably in bed. HEENT: Normocephalic, atraumatic. EOMI. Moist mucous membranes.No pharyngeal erythema. Neck: No JVD or lymphadenopathy Cardiac: RRR, No murmurs Pulm: Clear to auscultation bilaterally. Wheezing present throughout lung garcia. No crackles or rhonchi on auscultation. Abd: Obese abdomen. Soft, nontender, nondistended. Bowel sounds present. Ext: 2+ pitting edema in left lower extremity. Chronic venous stasis present on the anterior shins. Partial amputation of left distal extremity. Neuro: Neurologically, the patient was awake, alert, and oriented to person, place and time. There were no obvious focal neurologic abnormalities. LABORATORY DATA: See below. IMAGING: Imaging studies pending radiology read. MICROBIOLOGY: Please see below. ASSESSMENT/PLAN: #. Acute on chronic KELLEN - Ordering renal ultrasound, UA, bladder scan, I/Os, Urine sodium, urine Cr. - Starting 1 liter @ 75 cc. Avoid nephrotoxic meds. Nephrology consult recommended, defer to AM team. #. SOB 2/2 COPD exacerbation - Nebulizer treatments and IV solumedrol. - Respiratory panel is positive for rhinovirus, patient is on zithromax for anti-inflammatory effects. - Will obtain Chest CT to r/o consolidation, unable to get CTA 2/2 poor renal function. If INR<2, will start heparin drip. If INR>2, will have patient continue Coumadin. - Social service consult - Began conversation about code status, patient is currently full code but is open to continued discussion in the future. #. Diastolic CHF - Likely not CHF exacerbation, no signs of pleural effusion on CXR, awaiting chest CT official radiology read. Will adjust therapy accordingly based on radiology results. - Echo 2017 w/ EF normal, mild LVH, grade 2 diastolic CHF - Obtaining serial troponins, patient on telemetry, unable to use lasix 2/2 renal status, consider nephrology consult. In the mean time, placing wrap around LLE. #. Medication non-compliance - Obtaining social service consult to address patient's difficulties with ob taining his medications. #. T2DM -Sliding scale #. Diabetic neuropathy - Continue home meds. #. Hx of DVT -Will obtain INR, if>2, will continue warfarin. If not, will get VQ scan in AM, possibly start heparin drip. #. HTN - Continue home meds #. Schizoaffective disorder - Continue home meds DVT prophylaxis: Awaiting INR results to either continue coumadin or start heparin drip. Vital Signs Vital Signs Date Time Temp Pulse Resp B/P (MAP) Pulse Ox O2 Delivery O2 Flow Rate FiO2 03/18/18 05:45 162/70 (100) 03/18/18 05:36 75 95 03/18/18 02:32 96.9 20 Room Air Laboratory Data Labs 24H Laboratory Tests 2 03/18/18 03:54: Immature Granulocyte % (Auto) 1.0, White Blood Count 10.9H, Red Blood Count 3.03L, Hemoglobin 9.3L, Hematocrit 28.7L, Mean Corpuscular Volume 94.7, Mean Corpuscular Hemoglobin 30.7, Mean Corpuscular Hemoglobin Concent 32.4, Red Cell Distribution Width 13.6, Platelet Count 181, Neutrophils (%) (Auto) 77.8H, Lymphocytes (%) (Auto) 8.9L, Monocytes (%) (Auto) 9.1H, Eosinophils (%) (Auto) 2.7, Basophils (%) (Auto) 0.5, Neutrophils # (Auto) 8.5H, Lymphocytes # (Auto) 1.0L, Monocytes # (Auto) 1.0H, Eosinophils # (Auto) 0.3, Basophils # (Auto) 0.1, Nucleated Red Blood Cells % (auto) 0.0, Anion Gap 10, Glomerular Filtration Rate 14.2L, Lactic Acid Level 0.9, Blood Urea Nitrogen 63H, Creatinine 4.45H, Sodium Level 137, Potassium Level 4.5, Chloride Level 105, Carbon Dioxide Level 22, Calcium Level 7.6L, VG-Uzb-D-Type Natriuretic Peptide 3501H CBC/BMP Laboratory Tests 03/18/18 03:54 Red Blood Count 3.03 L, Mean Corpuscular Volume 94.7, Mean Corpuscular Hemoglobin 30.7, Mean Corpuscular Hemoglobin Concent 32.4, Red Cell Distribution Width 13.6, Neutrophils (%) (Auto) 77.8 H, Lymphocytes (%) (Auto) 8.9 L, Monocyt es (%) (Auto) 9.1 H, Eosinophils (%) (Auto) 2.7, Basophils (%) (Auto) 0.5, Neutrophils # (Auto) 8.5 H, Lymphocytes # (Auto) 1.0 L, Monocytes # (Auto) 1.0 H, Eosinophils # (Auto) 0.3, Basophils # (Auto) 0.1, Calcium Level 7.6 L Microbiology Microbiology 03/18/18 Gram Stain, Received Pending 03/18/18 Sputum Culture, Received Pending 03/18/18 Respiratory Virus Panel (PCR) ([facility]) - Final, Complete Human Rhinovirus/Enterovirus Home Medications Scheduled Amlodipine Besylate (Amlodipine Besylate) 10 Mg Tab, 10 MG PO DAILY Aspirin (Aspirin) 81 Mg Tab, 81 MG PO DAILY Atenolol (Atenolol) 50 Mg Tab, 50 MG PO DAILY Gabapentin (Gabapentin) 100 Mg Cap, 100 MG PO TID Haloperidol (Haloperidol) 5 Mg Tab, 5 MG PO DAILY Insulin Aspart (Novolog) 100 U/Ml Inj, 10 UNITS SC BID Insulin Aspart (Novolog) 100 U/Ml Inj, 5 UNITS SC QHS Insulin Detemir (Levemir) 1 Units/0.01 Ml Susp, 55 UNITS SC BID Warfarin Sod (Coumadin) 5 Mg Tab, 7.5 MG PO QPM Ziprasidone Hydrochloride (Ziprasidone HCl) 80 Mg Cap, 80 MG PO BID Scheduled PRN Nitroglycerin (Nitrostat) 0.4 Mg Subl, 0.4 MG SL NITRO PRN for CHEST PAIN Allergies Coded Allergies: Bupivacaine (Verified Adverse Reaction, Severe, INDUCES BRUGADA SYNDROME, 10/18/17) GME ATTESTATION GME ATTESTATION My faculty preceptor for this patient encounter was physically present during the encounter and was fully available. All aspects of the patient interview, examination, medical decision making process, and medical care plan development were reviewed and approved by the faculty preceptor. The faculty preceptor is aware and concurs with the plan as stated in the body of this note and will attest to such by his/her cosignature. HOPE ARTIS DO Mar 18, 2018 06:14
[2018-03-18] MEDS ORDERED: NITROGLYCERIN 0.4 MG SUBL TABLET SL PRN (06:15)
[2018-03-18 06:51] LABS: INR 1.83; PROTHROMBIN TIME 21.5 SECONDS (12.1-14.4)
[2018-03-18 07:00] VITALS: BP 150/68
[2018-03-18] MEDS: NS 1,000 ML IV SCH ×2 (07:04→14:26)
[2018-03-18 07:05] LABS: CPK CREATINE PHOSPHOKINASE 131 U/L (39-308); TROPONIN I < 0.02 NG/ML (< 0.10)
[2018-03-18 07:20] LABS: CREATININE,RANDOM URINE 67.3 MG/DL
--- NOTE | 2018-03-18 07:25 | REP ---
Clinical: Shortness of breath. Technique: AP and lateral views. Comparison: 03/18/2018 at 03:22 a.m. Findings: Mediastinum and cardiac silhouette stable with cardiomegaly again suggested. No focal consolidation, effusion, or pneumothorax. Skeletal structures intact. Impression: Cardiomegaly. No focal consolidation. Electronically Signed by Fredy Unger MD 03/18/2018 07:16 A
--- NOTE | 2018-03-18 07:26 | REP ---
Clinical: Cough and dyspnea . Comparison: 09/21/2017 . Findings: The mediastinum and cardiac silhouette are stable. Cardiomegaly again noted. The lung garcia demonstrate chronic-appearing interstitial changes without acute consolidation, effusion, or pneumothorax. Skeletal structures are intact. Impression: No acute cardiopulmonary process appreciated. Electronically Signed by Fredy Unger MD 03/18/2018 07:18 A
--- NOTE | 2018-03-18 07:54 | ECGEPIP ---
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
--- NOTE | 2018-03-18 08:08 | REP ---
Acute renal failure. Technique: Real time palomino scale ultrasound evaluation using curved array transducer. Findings: The kidneys are normal in size and reniform shape demonstrating mildly increased parenchymal echogenicity but no evidence for hydronephrosis, nephrolithiasis or renal mass lesion. Scattered renovascular calcifications are suggested bilaterally. Right kidney measures 11.8 x 4.6 x 4.6 cm with 8-0.4 x 2.4 x 1.8 cm mid pole cortical cyst. Left kidney measures 10.8 x 4.3 x 5.2 cm with 8-0.1 x 2.6 x 2.4 cm simple upper pole cyst. Bladder is collapsed. Impression: Findings consistent with age-related chronic renal disease. No hydronephrosis. Bilateral solitary cysts. Electronically Signed by Fredy Unger MD 03/18/2018 07:59 A
[2018-03-18] MEDS ORDERED: WARF-23 PO (08:16)
[2018-03-18] MEDS: HumaLOG INSULIN (NovoLOG) PER UNIT SC SCH ×4 (08:37→20:50)
[2018-03-18] MEDS: LEVEMIR (INSULIN DETEMIR) 1 UNITS/0.01ML SC SCH ×2 (08:37→20:50)
[2018-03-18] MEDS: NICOTINE 21MG/24HR 1 EA TRANSDERMAL TD SCH (08:38)
[2018-03-18] MEDS: ZIPRASIDONE 80 MG CAP (GEODON) PO SCH ×2 (08:41→20:49)
[2018-03-18] MEDS: GABAPENTIN 100 MG CAP PO SCH ×3 (08:41→20:49)
[2018-03-18] MEDS: ATENOLOL 50 MG TAB PO SCH (08:42)
[2018-03-18] MEDS: ASPIRIN 81 MG ENTERIC TAB PO SCH (08:42)
[2018-03-18] MEDS: amLODIPine 10 MG TAB PO SCH (08:42)
[2018-03-18] MEDS: methylPREDNISolone INJ 40 MG/1 ML VIAL (J2920) IV SCH ×3 (09:05→21:31)
[2018-03-18] MEDS: AZITHROMYCIN INJ 500 MG, VIAL MATE ADAPTER 1 EACH in D5W 250 ML IV SCH (09:05)
--- NOTE | 2018-03-18 09:34 | REPVR ---
EXAM: CT Chest Without Contrast EXAM DATE/TIME: 03/18/2018 5:29 AM CLINICAL HISTORY: 67 years old, male; Signs and symptoms; Dyspnea and shortness of breath TECHNIQUE: Axial computed tomography images of the chest without intravenous contrast. All CT scans at this facility use at least one of these dose optimization techniques: automated exposure control; mA and/or kV adjustment per patient size (includes targeted exams where dose is matched to clinical indication); or iterative reconstruction. Coronal and sagittal reformatted images were created and reviewed. MIP reconstructed images were created and reviewed. COMPARISON: CT Chest without contrast 09/21/2017 10:16 AM FINDINGS: Lungs: More focal area of scarring superior right lower lobe posteriorly measures 1.6 CM by 1.3 CM. Pleural space: Minor areas of pleural-parenchymal scarring bilaterally. Heart: Left ventricular prominent size. Mediastinum: Accentuation or thickening of the upper mediastinal esophagus. Aorta: Normal. No aortic aneurysm. Lymph nodes: Mediastinal lymphadenopathy with subcarinal lymph node measuring 2.7 CM. Bones/joints: Degenerative change of the spine. Degenerative change of the spine. Soft tissues: Unremarkable. Gallbladder and bile ducts: Calcified thoracic aorta with calcific and she and distribution of coronary arteries. Cholelithiasis. Kidneys and ureters: Likely right renal vascular calcification. IMPRESSION: 1. Areas of pleuroparenchymal scarring bilaterally. 2. Mediastinal adenopathy could be reactive. 3. Accentuation of the wall of the upper mediastinal esophagus. 4. Cholelithiasis. Electronically signed by: Cherelle Pettit On 03/18/2018 09:33:55 AM
[2018-03-18] MEDS: IPRATROPIUM 0.5MG/ALBUTEROL 2.5MG INH SOL UD 3ML (DUONEB)(J7620) NEB SCH ×3 (10:17→21:03)
[2018-03-18] MEDS: HALOPERIDOL 5 MG TAB PO SCH (11:51)
[2018-03-18] MEDS: FLUCONAZOLE 100 MG TAB PO SCH (11:51)
[2018-03-18 12:00] VITALS: BP 140/62
[2018-03-18 12:34] LABS: MB/CK RELATIVE INDEX 2.25 (< OR =4); TROPONIN I 0.02 NG/ML (< 0.10)
[2018-03-18 12:35] LABS: ALBUMIN 1.7 GM/DL (3.2-5.2); BILIRUBIN,TOTAL 0.2 MG/DL (0.2-1.0); CALCIUM LEVEL 7.3 MG/DL (8.8-10.2); CREATININE FOR GFR 4.38 MG/DL (0.70-1.30); GLOMERULAR FILTRATION RATE 14.4 (>49); POTASSIUM SERUM 4.8 MEQ/L (3.5-5.1); TOTAL PROTEIN 5.6 GM/DL (6.4-8.2)
[2018-03-18] MEDS: NYSTATIN 100,000 UNITS/GM TOPICAL PWD 15 GM TOP SCH ×2 (13:32→20:50)
[2018-03-18 16:00] VITALS: BP 132/66
[2018-03-18 20:00] VITALS: BP 140/70
[2018-03-18] MEDS: WARFARIN SOD 5 MG TAB PO SCH (20:49)
[2018-03-18 22:00] LABS: CPK CREATINE PHOSPHOKINASE 117 U/L (39-308); MB/CK RELATIVE INDEX 2.22 (< OR =4); TROPONIN I < 0.02 NG/ML (< 0.10)
[2018-03-18] MEDS: BISACODYL 5 MG TAB PO PRN (23:28)
[2018-03-19] VITALS: BP 144/60
[2018-03-19] MEDS: IPRATROPIUM 0.5MG/ALBUTEROL 2.5MG INH SOL UD 3ML (DUONEB)(J7620) NEB SCH ×4 (01:38→20:04)
[2018-03-19] MEDS ORDERED: SLF 3 ML SYR IV PRN (02:45)
[2018-03-19 04:00] VITALS: BP 115/58
[2018-03-19] MEDS: SLF 3 ML SYR IV SCH ×3 (05:04→20:14)
[2018-03-19 05:05] LABS: HEMATOCRIT 27.5 % (42.0-52.0); MEAN CORPUSCULAR HEMOGLOBIN 30.8 pg (27.0-33.0); MEAN CORPUSCULAR HGB CONC 32.7 g/dl (32.0-36.5); MEAN CORPUSCULAR VOLUME 94.2 fl (80.0-96.0); PLATELET COUNT, AUTOMATED 147 10^3/uL (150-450); RED BLOOD COUNT 2.92 10^6/uL (4.30-6.10); WHITE BLOOD COUNT 9.4 10^3/uL (4.0-10.0)
[2018-03-19] MEDS: methylPREDNISolone INJ 40 MG/1 ML VIAL (J2920) IV SCH ×2 (05:10→18:00)
[2018-03-19] MEDS: AZITHROMYCIN INJ 500 MG, VIAL MATE ADAPTER 1 EACH in D5W 250 ML IV SCH (05:10)
[2018-03-19 05:18] LABS: INR 1.99; PROTHROMBIN TIME 22.9 SECONDS (12.1-14.4)
[2018-03-19 05:23] LABS: CALCIUM LEVEL 7.3 MG/DL (8.8-10.2); CREATININE FOR GFR 4.46 MG/DL (0.70-1.30); GLOMERULAR FILTRATION RATE 14.1 (>49); POTASSIUM SERUM 4.3 MEQ/L (3.5-5.1)
[2018-03-19] MEDS: HumaLOG INSULIN (NovoLOG) PER UNIT SC SCH ×4 (07:37→20:14)
[2018-03-19 08:00] VITALS: BP 149/66
[2018-03-19] MEDS: ASPIRIN 81 MG ENTERIC TAB PO SCH (09:49)
[2018-03-19] MEDS: NICOTINE 21MG/24HR 1 EA TRANSDERMAL TD SCH (09:49)
[2018-03-19] MEDS: LEVEMIR (INSULIN DETEMIR) 1 UNITS/0.01ML SC SCH ×2 (09:49→20:13)
[2018-03-19] MEDS: amLODIPine 10 MG TAB PO SCH (09:50)
[2018-03-19] MEDS: GABAPENTIN 100 MG CAP PO SCH ×3 (09:50→20:04)
[2018-03-19] MEDS: HALOPERIDOL 5 MG TAB PO SCH (09:50)
[2018-03-19] MEDS: FLUCONAZOLE 100 MG TAB PO SCH (09:51)
[2018-03-19] MEDS: ZIPRASIDONE 80 MG CAP (GEODON) PO SCH ×2 (09:51→20:05)
[2018-03-19] MEDS: NYSTATIN 100,000 UNITS/GM TOPICAL PWD 15 GM TOP SCH ×2 (09:52→20:09)
[2018-03-19] MEDS: ATENOLOL 50 MG TAB PO SCH (09:54)
--- NOTE | 2018-03-19 13:55 | IPNPDOC ---
Text Note Date of Service The patient was seen on 03/19/18. NOTE Subjective: Patient states his dyspnea has improved. No chest pain or palpit ations. Objective: Vitals: (see below) General: No acute distress, laying comfortably in bed. HEENT: Moist mucous membranes. Neck: No JVD or lymphadenopathy Cardiac: RRR, No murmurs. Pulm: Diminished breath sounds b/l. Minimal wheezing BLE. Minimal rhonchi Abd: NT/ND + BS Ext: 1+ pitting edema left lower extremity right lower extremity. Right above- knee amputation. No cyanosis. Labs (see below) Images: Renal u/s 03/18/18 Impression: Findings consistent with age-related chronic renal disease. No hydronephrosis. Bilateral solitary cysts. Assessment/Plan 1. COPD exacerbation secondary to RSV. Continue nebs, steroids. Decrease steroids to every 12 hours. 2. Uncontrolled diabetes mellitus- blood sugars elevated likely secondary to RSV as well as steroids. Increase Levemir dose. Sliding scale insulin. 3. Acute kidney on chronic kidney disease. Baseline creatinine 2.8. Renal ultrasound with no hydronephrosis. Urine lites noted. Nephrology consulted. Appreciate input. 4. History of peripheral artery disease will need outpatient follow-up. 5. History of left common iliac artery aneurysm for which patient had refused repair and surgery in the past. 6. History of CAD status post PCI- continue home meds. 7. Hypertension controlled continue current meds. 8. History of morbid obesity complicated care. 9. History of diabetic neuropathy 10. History of schizoaffective disorder. Continue meds. 11. History of left lower extremity DVT on Coumadin. INR less than 2. Coumadin dose increased. DVT prophy: On Coumadin. VS,Fishbone, I+O VS, Fishbone, I+O Laboratory Tests 03/19/18 04:44 Red Blood Count 2.92 L, Mean Corpuscular Volume 94.2, Mean Corpuscular Hemoglobin 30.8, Mean Corpuscular Hemoglobin Concent 32.7, Red Cell Distribution Width 13.0, Calcium Level 7.3 L Vital Signs Date Time Temp Pulse Resp B/P (MAP) Pulse Ox O2 Delivery O2 Flow Rate FiO2 03/19/18 09:50 77 149/66 03/19/18 08:00 96.6 22 88 Nasal Cannula 2.0 I&O- Last 24 Hours up to 6 AM 03/19/18 06:00 Intake Total 3310 ml Output Total 1625 ml Balance 1685 ml TEMI ARSHAD MD Mar 19, 2018 13:55
[2018-03-19] MEDS ORDERED: LEVEMIR (INSULIN DETEMIR) 1 UNITS/0.01ML SC ONE (14:00)
[2018-03-19 16:00] VITALS: BP 149/64
[2018-03-19] MEDS: FUROSEMIDE 40 MG/4 ML VIAL (J1940) IV SCH (16:07)
[2018-03-19] MEDS: IPRATROPIUM 0.5MG/ALBUTEROL 2.5MG INH SOL UD 3ML (DUONEB)(J7620) NEB PRN ×2 (16:20→23:58)
[2018-03-19] MEDS: SODIUM CHLORIDE NASAL 0.65% SPRAY BTL (OCEAN) PRN ×2 (18:00→23:58)
[2018-03-19] MEDS: WARFARIN SOD 5 MG TAB PO SCH (20:05)
[2018-03-19 21:00] VITALS: BP 166/74
[2018-03-19 21:20] VITALS: BP 156/72
[2018-03-19] MEDS ORDERED: **hydrALAZINE** 10 MG TAB PO PRN (21:30)
[2018-03-20] VITALS (7 sets, daily range): BP systolic 112–162; BP diastolic 52–74
[2018-03-20] MEDS: IPRATROPIUM 0.5MG/ALBUTEROL 2.5MG INH SOL UD 3ML (DUONEB)(J7620) NEB SCH ×4 (02:00→22:30)
[2018-03-20] MEDS: IPRATROPIUM 0.5MG/ALBUTEROL 2.5MG INH SOL UD 3ML (DUONEB)(J7620) NEB PRN ×2 (04:30→17:55)
--- NOTE | 2018-03-20 04:45 | CR ---
DATE OF CONSULTATION: 03/19/2018 REQUESTING PHYSICIAN: Dr. Luis Koroma. CONSULTING PHYSICIAN: Dr. Brar. REASON FOR CONSULTATION: Management of acute kidney disease superimposed on chronic kidney disease and optimization of fluid status. CHIEF COMPLAINT: Patient presented to the hospital yesterday with progressive shortness of breath and weakness. HISTORY OF PRESENT ILLNESS: Sathish Cisneros is a 67-year-old male with past medical history of chronic kidney disease stage 3 with best baseline creatinine of 2.8 as of September 2017, history of morbid obesity, diastolic congestive heart failure and chronic obstructive pulmonary disease (COPD) with myeloproliferative comorbidities as mentioned below. He presented to the hospital yesterday with progressive weakness and shortness of breath for almost 1 week. He did not have any fevers or chills. He did have nasal congestion. He got respiratory viral panel checked in the emergency room. He was found to have human rhinovirus/enterovirus infection. He was started on steroids and nebulization and oxygen and symptomatic support for the viral infection. He was also started on empiric IV antibiotic coverage for superimposed pneumonia. Patient presented with a creatinine of 4.4 and because of acute renal failure, patient was given gentle IV fluid hydration. However despite IV fluid hydration overnight, patient's renal function has not improved. His creatinine is 4.4 today. He was in moderate respiratory distress. Nephrology service was called for further help in the management of this patient with acute renal failure superimposed on chronic kidney disease stage III. I saw and evaluated the patient today morning at the bedside. He reports that he was feeling slightly better today as compared with yesterday, however, he was wearing nasal cannula and still in moderate respiratory distress with active wheezing. Patient did report that he is making more urine today as compared with yesterday. PAST MEDICAL HISTORY: Chronic kidney disease stage III. Best baseline creatinine of around of 2.8. Morbid obesity. History of sepsis with left lower extremity cellulitis recently. Peripheral vascular disease. History of left partial deep venous thrombosis (DVT) in the past. Previous history of acute kidney disease superimposed on chronic kidney disease. Hypertension. Coronary artery disease. Diabetic neuropathy. Chronic obstructive pulmonary disease (COPD). PAST SURGICAL HISTORY: Status post right above knee amputation. Status post left transmetatarsal amputation. History of left common femoral, superficial femoral, and profunda femoris artery arterectomy. Left transmetatarsal amputation. Left groin wound excision and debridement. Cardiac stents in 2016. 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 ALLERGIES: Patient is allergic to BUPIVACAINE. FAMILY HISTORY: No significant family history of end stage renal disease requiring hemodialysis. SOCIAL HISTORY: Patient denies any elicit drug abuse or alcohol abuse. He lives alone. He is a smoker and smokes almost five packs per day. REVIEW OF SYSTEMS: Constitutional: Patient reports feeling weak and tired. Eyes: He denies any blurry vision, double vision. ENT: Denies any dysphagia, odynophagia. Cardiovascular: He does report chest pressure and shortness of breath. Respiratory: He reports cough, shortness of breath on mild exertion and some clear phlegm. GI: He denies any nausea or vomiting. Genitourinary: He denies any dysuria or hematuria. He does report some history of retention in the past. Musculoskeletal: He reports history of right above knee amputation. HEMP FIBER TAKER OFF: He denies any weakness or strokes or seizures. Psych: He denies any depression or anxiety. Endocrine: He reports history of diabetes mellitus type 2 insulin dependent. Hematological/oncological: He denies any easy bleeding or bruising. All other review of system is negative. PHYSICAL EXAMINATION: General: Patient is awake, alert, oriented times three, lying in bed, moderate respiratory distress. Actively wheezing. Vital signs: Temperature is 96.6 degrees Fahrenheit, blood pressure 149/66, pulse 77, respiratory rate of 22, saturating 88% on nasal cannula at 2 liters. Intake and output: Urine output recorded as 1.1 liter yesterday, 1.3 liter so far today since overnight. Head and neck exam: Extraocular muscles intact. Pupils equally round and reactive to light. Mucous membranes are moist. Neck is supple. Mildly elevated jugular venous distention (JVD). Cardiovascular: S1, S2. Irregular rate. Trace edema of the left lower extremity. Respiratory: Moderate amount of bilateral expiratory rhonchi were audible all the way up to the midlung zone. There were mild inspiratory crackles bilaterally at the bases. Abdomen is soft, obese. Umbilical hernia was noted. No ascites was noted. I could not appreciate any organomegaly because of body habitus. Genitourinary: No hernia was noted. Bladder was not palpable. Musculoskeletal: Patient has right above knee amputation and left transmetatarsal amputation. HEMP FIBER TAKER OFF: No focal deficit. Power is 5/5 in bilateral upper extremities. Psych: Normal mood and affect. LAB REVIEW: CBC showed WBC of 9.4, hemoglobin is 9, platelets of 147. BMP showed sodium 136, potassium 4.3, chloride 104, bicarbonate 21, BUN 69, creatinine is 4.4. Glucose is 343. Calcium 7.3. Microbiology: Respiratory viral panel is positive for human rhinovirus/enterovirus. Blood cultures are negative. IMAGING: CT of the chest was done yesterday. It showed areas of pleural parenchymal scarring bilaterally. Mediastinal lymphadenopathy which could be reactive. Cholelithiasis. Renal ultrasound was done yesterday which showed age related chronic renal disease. No hydronephrosis. Bilateral solitary cysts. CURRENT INPATIENT MEDICATIONS: Patient's medications were all reviewed by me. He is currently on: - azithromycin 500 mg daily - Tylenol as needed - DuoNeb nebulizations - amlodipine 10 mg daily - aspirin 81 mg daily - Dulcolax as needed - fluconazole 100 mg by mouth daily - gabapentin 100 mg by mouth three times a day - Haldol 5 mg by mouth daily - hydralazine 10 mg by mouth every 4 hours - insulin Levemir 65 units subcutaneous twice a day - insulin Lispro sliding scale - Solu-Medrol has been decreased to 40 mg every 12 hours - nitroglycerine as needed - Nystatin topically on the groin - warfarin 10 mg by mouth daily - Geodon 80 mg twice a day ASSESSMENT: 67-year-old male with acute kidney injury superimposed on chronic kidney disease stage III, acute chronic obstructive pulmonary disease (COPD) exacerbation secondary to human rhinovirus infection, decompensated diastolic congestive heart failure. PLAN: 1. Acute kidney injury superimposed on chronic kidney disease stage III. Patient's baseline creatinine is around 2.8. Clinically patient looks like he is volume overloaded. He does not need IV fluid hydration at this point. I have started the patient on Lasix 40 mg IV twice a day. Continue to monitor intake and output. 2. Acute chronic obstructive pulmonary disease (COPD) exacerbation secondary to rhinovirus infection. Patient is currently on steroids and nebulization. His breathing is getting better. 3. Diastolic congestive heart failure. Patient's volume status is decompensated at this point. As mentioned above, I have started him on Lasix 40 mg IV twice a day. Put him on fluid restriction 1500 mL daily. 4. Hypertension with hypertensive heart disease. Continue current dose of amlodipine 10 mg by mouth daily, atenolol 50 mg by mouth daily. 5. Diabetes mellitus type 2. Insulin dependent. Patient's sugars are high because of IV steroids. Steroid dose is being tapered down. Continue current dose of insulin sliding scale and Levemir as per primary team. 6. Anemia. Hemoglobin is 9 which is suboptimal. I am going to check the iron levels tomorrow morning. No need of blood transfusion at this point. Thank you for involving me in the care of this patient. I should be happy to follow the patient along with you tomorrow morning. MTDD
[2018-03-20] MEDS: SLF 3 ML SYR IV SCH ×3 (05:51→21:01)
[2018-03-20] MEDS: methylPREDNISolone INJ 40 MG/1 ML VIAL (J2920) IV SCH (05:51)
[2018-03-20] MEDS: AZITHROMYCIN INJ 500 MG, VIAL MATE ADAPTER 1 EACH in D5W 250 ML IV SCH (05:52)
[2018-03-20 06:11] LABS: HEMATOCRIT 28.4 % (42.0-52.0); HEMOGLOBIN 9.3 g/dl (13.5-17.5); MEAN CORPUSCULAR HEMOGLOBIN 30.2 pg (27.0-33.0); MEAN CORPUSCULAR HGB CONC 32.7 g/dl (32.0-36.5); MEAN CORPUSCULAR VOLUME 92.2 fl (80.0-96.0); PLATELET COUNT, AUTOMATED 181 10^3/uL (150-450); RED BLOOD COUNT 3.08 10^6/uL (4.30-6.10); WHITE BLOOD COUNT 16.1 10^3/uL (4.0-10.0)
[2018-03-20 06:26] LABS: INR 2.59; PROTHROMBIN TIME 28.3 SECONDS (12.1-14.4)
[2018-03-20 06:29] LABS: CALCIUM LEVEL 7.4 MG/DL (8.8-10.2); CREATININE FOR GFR 4.82 MG/DL (0.70-1.30); GLOMERULAR FILTRATION RATE 12.9 (>49); POTASSIUM SERUM 4.5 MEQ/L (3.5-5.1)
[2018-03-20] MEDS: ZIPRASIDONE 80 MG CAP (GEODON) PO SCH ×2 (08:33→20:59)
[2018-03-20] MEDS: amLODIPine 10 MG TAB PO SCH (08:34)
[2018-03-20] MEDS: ASPIRIN 81 MG ENTERIC TAB PO SCH (08:34)
[2018-03-20] MEDS: ATENOLOL 50 MG TAB PO SCH (08:34)
[2018-03-20] MEDS: GABAPENTIN 100 MG CAP PO SCH ×3 (08:34→20:59)
[2018-03-20] MEDS: FLUCONAZOLE 100 MG TAB PO SCH (08:34)
[2018-03-20] MEDS: FUROSEMIDE 40 MG/4 ML VIAL (J1940) IV SCH ×2 (08:34→16:59)
[2018-03-20] MEDS: HumaLOG INSULIN (NovoLOG) PER UNIT SC SCH ×4 (08:35→21:00)
[2018-03-20] MEDS: LEVEMIR (INSULIN DETEMIR) 1 UNITS/0.01ML SC SCH ×2 (08:35→21:00)
[2018-03-20] MEDS: NYSTATIN 100,000 UNITS/GM TOPICAL PWD 15 GM TOP SCH ×2 (08:36→21:00)
[2018-03-20] MEDS: NICOTINE 21MG/24HR 1 EA TRANSDERMAL TD SCH (08:37)
[2018-03-20] MEDS ORDERED: PREVNAR 13 VACCINE SYRINGE (CPT CODE:90670) IM ONE (09:00)
[2018-03-20] MEDS: cefTRIAXone SOD 1 GM in D5W MINI-BAG PLUS 50 ML IV SCH (09:48)
--- NOTE | 2018-03-20 10:45 | IPNPDOC ---
Text Note Date of Service The patient was seen on 03/20/18. NOTE Subjective: No acute changes overnight. No CP/sob/palpitations. Objective: Vitals: (see below) General: No acute distress, laying comfortably in bed. HEENT: Moist mucous membranes. Neck: No JVD or lymphadenopathy Cardiac: RRR, No murmurs. Pulm: Diminished breath sounds b/l. Minimal wheezing BLE/rhonchi improved Abd: NT/ND + BS Ext: 1+ pitting edema left lower extremity right lower extremity. Right above- knee amputation. No cyanosis. Labs (see below) Images: Renal u/s 03/18/18 Impression: Findings consistent with age-related chronic renal disease. No hydronephrosis. Bilateral solitary cysts. Assessment/Plan 1. COPD exacerbation secondary to RSV. Continue nebs, steroids. Taper steroids to prednisone. 2. Uncontrolled diabetes mellitus- blood sugars elevated likely secondary to RSV as well as steroids. Increase Levemir dose. Sliding scale insulin. 3. Acute kidney on chronic kidney disease. Baseline creatinine 2.8. Renal ultrasound with no hydronephrosis. Urine lites noted. Nephrology consulted. Appreciate input. On lasix IV q8h. 4. History of peripheral artery disease will need outpatient follow-up. 5. History of left common iliac artery aneurysm for which patient had refused repair and surgery in the past. 6. History of CAD status post PCI- continue home meds. 7. Hypertension controlled continue current meds. 8. History of morbid obesity complicated care. 9. History of diabetic neuropathy 10. History of schizoaffective disorder. Continue meds. 11. History of left lower extremity DVT on Coumadin. INR less than 2. Coumadin dose increased. DVT prophy: On Coumadin. Overall prognosis guarded. VS,Fishbone, I+O VS, Fishbone, I+O Laboratory Tests 03/20/18 05:49 Red Blood Count 3.08 L, Mean Corpuscular Volume 92.2, Mean Corpuscular Hemoglobin 30.2, Mean Corpuscular Hemoglobin Concent 32.7, Red Cell Distribution Width 13.2, Calcium Level 7.4 L Vital Signs Date Time Temp Pulse Resp B/P (MAP) Pulse Ox O2 Delivery O2 Flow Rate FiO2 03/20/18 10:00 97.2 67 18 115/52 (73) 90 Nasal Cannula 4.0 I&O- Last 24 Hours up to 6 AM 03/20/18 05:59 Intake Total 2035 ml Output Total 2200 ml Balance -165 ml TEMI ARSHAD MD Mar 20, 2018 10:45
[2018-03-20] MEDS: HALOPERIDOL 5 MG TAB PO SCH (12:25)
[2018-03-20] MEDS: WARFARIN SOD 5 MG TAB PO SCH (20:59)
[2018-03-21] VITALS (8 sets, daily range): BP systolic 128–169; BP diastolic 52–85
[2018-03-21 00:32] LABS: BODY FLUID CULTURE Not Indicated (.); LEGIONELLA ANTIGEN URINE Negative (Negative); ORGANISM ID Not indicated. (.); SPECIMEN SOURCE Urine (.); URINE STREP PNEUMONIAE ANTIGEN Negative (Negative)
[2018-03-21] MEDS: FUROSEMIDE 40 MG/4 ML VIAL (J1940) IV SCH ×3 (01:31→08:26)
[2018-03-21] MEDS: IPRATROPIUM 0.5MG/ALBUTEROL 2.5MG INH SOL UD 3ML (DUONEB)(J7620) NEB SCH ×4 (01:39→21:05)
[2018-03-21] MEDS: SLF 3 ML SYR IV SCH ×3 (06:06→21:07)
[2018-03-21] MEDS: AZITHROMYCIN INJ 500 MG, VIAL MATE ADAPTER 1 EACH in D5W 250 ML IV SCH (06:06)
[2018-03-21 07:13] LABS: HEMATOCRIT 28.4 % (42.0-52.0); HEMOGLOBIN 9.5 g/dl (13.5-17.5); MEAN CORPUSCULAR HGB CONC 33.5 g/dl (32.0-36.5); MEAN CORPUSCULAR VOLUME 92.8 fl (80.0-96.0); PLATELET COUNT, AUTOMATED 193 10^3/uL (150-450); RED BLOOD COUNT 3.06 10^6/uL (4.30-6.10); WHITE BLOOD COUNT 18.4 10^3/uL (4.0-10.0)
[2018-03-21 07:16] LABS: CREATININE FOR GFR 5.12 MG/DL (0.70-1.30); GLOMERULAR FILTRATION RATE 12.1 (>49); POTASSIUM SERUM 4.7 MEQ/L (3.5-5.1)
[2018-03-21] MEDS: amLODIPine 5 MG TAB PO SCH (08:27)
[2018-03-21] MEDS: ASPIRIN 81 MG ENTERIC TAB PO SCH (08:27)
[2018-03-21] MEDS: GABAPENTIN 100 MG CAP PO SCH ×3 (08:27→20:30)
[2018-03-21] MEDS: FLUCONAZOLE 100 MG TAB PO SCH (08:27)
[2018-03-21] MEDS: ATENOLOL 50 MG TAB PO SCH (08:27)
[2018-03-21] MEDS: ZIPRASIDONE 80 MG CAP (GEODON) PO SCH ×2 (08:27→20:30)
[2018-03-21] MEDS: predniSONE 20 MG TAB PO SCH (08:28)
[2018-03-21] MEDS: HALOPERIDOL 5 MG TAB PO SCH (08:28)
[2018-03-21] MEDS: HumaLOG INSULIN (NovoLOG) PER UNIT SC SCH ×4 (08:29→20:50)
[2018-03-21] MEDS: LEVEMIR (INSULIN DETEMIR) 1 UNITS/0.01ML SC SCH ×2 (08:29→20:31)
[2018-03-21] MEDS: NICOTINE 21MG/24HR 1 EA TRANSDERMAL TD SCH (08:30)
[2018-03-21] MEDS: NYSTATIN 100,000 UNITS/GM TOPICAL PWD 15 GM TOP SCH ×2 (08:30→20:31)
--- NOTE | 2018-03-21 09:49 | IPN ---
DATE: 03/20/2018 Mr. Cisneros is seen this morning on his bedside. He is sitting at the edge of his bed and reports improvement in his dyspnea. He denies any hemoptysis, pleuritic type of chest pain, fever or chills. There is no nausea or vomiting. He still requiring 4 liters of oxygen and his oxygen saturation is just about 90%. PHYSICAL EXAMINATION: Temperature 97.2 degrees Fahrenheit, heart rate 68 per minute and respiratory rate 18 per minute. Blood pressure 115/52 mmHg. Intake and output records from yesterday show total intake 2034 and output 2224. His weight is recorded at 100 kg today. This could be inaccurate as his weight on March 18 Was 112.5 and yesterday 170.1 kg. His head is atraumatic. There is no oral thrush or ulcers. His neck veins are at least 12 cm above sternal angle. There is no thyroid enlargement. His personal hygiene is extremely poor. His heart sounds are regular and there is no pericardial friction rub. Lungs have diminished breath sounds and bilateral basilar rales. Abdomen is obese, soft and nontender and bowel sounds are normal. Extremities have no cyanosis or clubbing. He has right [id number] amputation previously and a midtarsal amputation of left foot. There is chronic stasis changes on his left leg with some erythema and scabs. Skin is without any active ulcers, but has poor hygiene as he has not showered in months. Neurologically, he is awake and at his baseline mentation. Today's labs show WBC count 16.1, hemoglobin 9.3 and hematocrit 28.4. Sodium 133, potassium 4.5, CO2 19, BUN 89 and creatinine 4.82. Glucose 290 and calcium 7.4. PROBLEMS: 1. Acute on chronic congestive heart failure. The patient has decompensated volume status at present and he has known history of diastolic congestive heart failure. I am going to increase his Lasix dose to 40 mg every 8 hours and he will be put on fluid restriction of 1500 mL per day. We will try to diurese him aggressively. 2. Acute kidney injury superimposed on chronic kidney disease. I feel the patient has significant underlying chronic kidney disease as his baseline creatinine may have been taken at a time when he was hypervolemic. At this point, he is quite decompensated with volume status and it remains to be seen how his kidney function responds when we diurese him. We will continue to monitor his kidney function on a daily basis. There is no emergent indication for dialysis. However, it is quite likely that he will require dialysis during this admission. 3. Chronic obstructive pulmonary disease (COPD) exacerbation. I do not feel that his major problem at this point is COPD exacerbation and I would suggest to taper and cut down his steroids quickly. I feel he is volume overloaded grossly and needs to be aggressively diuresed. 4. Hypertension. His blood pressure is somewhat on the low side. We will continue to monitor closely and see how he does when we diurese him aggressively. He is currently not on any oral hydralazine but he is getting amlodipine 10 mg daily. I am going to cut down the dose of his amlodipine to 5 mg daily to prevent hypotension.
[2018-03-21] MEDS: cefTRIAXone SOD 1 GM in D5W MINI-BAG PLUS 50 ML IV SCH (10:49)
--- NOTE | 2018-03-21 11:20 | REP ---
Clinical: Shortness of breath. Comparison: 03/18/2018. Findings: Evaluation is limited by portable technique and underpenetration which accentuates the pulmonary vasculature and interstitium. Stable cardiomegaly. Increased perihilar opacities with indistinct pulmonary vasculature and cephalization as well as trace basilar atelectasis most compatible with pulmonary vascular congestion. Differential diagnosis includes multifocal pneumonia. Impression: Differential diagnosis includes pulmonary vascular congestion/interstitial edema and diffuse bronchitis with atelectasis. Electronically Signed by Fredy Unger MD 03/21/2018 11:11 A
--- NOTE | 2018-03-21 13:38 | IPN ---
DATE: 03/21/2018 Mr. Cisneros is seen this morning on his bedside. He is sitting in the wheelchair at the time of my visit. He remains short of breath and nursing staff reports that he has been receiving nebulizers around the clock. The patient has some cough, but denies any hemoptysis or pleuritic type of chest pain. He has been diuresed with intravenous Lasix and did have negative fluid balance. On physical examination, temperature 97.2 degrees Fahrenheit, heart rate 80 per minute and respiratory rate 20 per minute. Blood pressure 152/78 mmHg and oxygen saturation 90% on 4 liters oxygen. Intake and output records from yesterday showed total intake 1550 and output 1850. His head is atraumatic. Neck veins are difficult to be assessed sitting upright. Lungs have bilateral expiratory wheezing and diminished breath sounds at bases. Heart sounds are regular and without a pericardial friction rub. Abdomen: Obese and nontender. Bowel sounds are normal. Extremities have no cyanosis or clubbing. He has a right [id number] amputation and the left lower extremity has chronic stasis changes. He has a partial foot amputation and the stump is wrapped in a dressing. Neurologically, he is at his baseline mentation. Today's labs show WBC count 18.4, hemoglobin 9.5 and hematocrit 28.4. Platelets 193. Sodium 138, potassium 4.7, CO2 20, BUN 97 and creatinine 5.12. Calcium level is 7.0. His INR today is 4.0. PROBLEMS: 1. Acute renal failure superimposed on chronic kidney disease. The patient has slight worsening of kidney function compared with yesterday. He has been in negative fluid balance. I have discussed with the patient about potential need for dialysis and he is consenting for dialysis. We will plan on getting a catheter placed tomorrow, either temporary or a Perma-Cath, depending upon his INR. If his kidney function does not improve, then we will plan on dialyzing him tomorrow. 2. Shortness of breath. I feel it is multifactorial. He seems to be clinically well diuresed. He does have chronic obstructive pulmonary disease (COPD) and possible pneumonia. He has leukocytosis, however, he has also been on steroids. Now, he is on azithromycin and ceftriaxone. I am going to stop his intravenous Lasix today and will see how he does. I would recommend to continue with nebulizers and broad-spectrum antibiotics. I am not very convinced that he has any significant hypervolemia. His CT scan of chest done on the did not show any significant evidence for congestive heart failure.
--- NOTE | 2018-03-21 13:46 | IPNPDOC ---
Text Note Date of Service The patient was seen on 03/21/18. NOTE Subjective: No acute changes overnight. Continues to have SOB and requiring 4 liters of oxygen. As per nurses was almost gasping for nadeges this am and was very poor air entry, now better after nebs. Objective: Vitals: (see below) General: No acute distress, sitting up in chair. HEENT: Moist mucous membranes. Neck: No JVD or lymphadenopathy Cardiac: RRR, No murmurs. Pulm: Diminished breath sounds b/l. Minimal wheezing BLE/rhonchi improved Abd: NT/ND + BS Ext: 1+ pitting edema left lower extremity right lower extremity. Right above- knee amputation. No cyanosis. chronic stasis changes on the left leg. Labs and Radiology reviewed(see below) Assessment/Plan: 67-year-old male with significant past medical history of CKD stage IV, PAD with right sided AKA, diastolic heart failure, and COPD, obesity, Diabetes, CAD s/p stents, Hypertension, presenting with a week long history of progressively worsening weakness and shortness of breath. He admits to a cough productive of clear, thick sputum that he has chronically and denies any fevers, chills, rhinorrhea, or nasal congestion. Does admit to sick contacts in the past 2 weeks who have had common cold-like symptoms. He lives at home alone and says he hasn't been able to find his medications for the last week so he hasn't taken any of them for at least a week. He also states it is difficult for him to see the bottles because of his cataracts. Acute hypoxic respiratory failure due to CHF exacerbation and COPD exacerbation due to RSV infection continues to require 4 liter oxygen . Does not use oxygen at home. continue oxygen supplementation COPD exacerbation secondary to RSV. Continue nebs, steroids. Taper steroids to prednisone. Diastolic CHF exacerbation seems to be appearing to euvolemia. creatinine on the rise. He probably has significant CKD stage 4 to 5 and his creatinine before was underestimated due to fluid overload. continue with diuresis as per nephrology. Uncontrolled diabetes mellitus- blood sugars elevated likely secondary to RSV as well as steroids. Increase Levemir dose. Sliding scale insulin. Acute kidney on chronic kidney disease. Baseline creatinine probably around 3 to 3.5. Renal ultrasound with no hydronephrosis. Nephrology consulted. Appreciate input. History of peripheral artery disease will need outpatient follow-up History of left common iliac artery aneurysm for which patient had refused repair and surgery in the past. History of CAD status post PCI- continue home meds. Hypertension controlled continue current meds. History of morbid obesity complicated care. History of diabetic neuropathy History of schizoaffective disorder. Continue meds. History of left lower extremity DVT on Coumadin. INR supra therapeutic. COumadin held DVT prophy: On Coumadin. VS,Fishbone, I+O VS, Fishbone, I+O Laboratory Tests 03/21/18 06:18 Red Blood Count 3.06 L, Mean Corpuscular Volume 92.8, Mean Corpuscular Hemoglobin 31.0, Mean Corpuscular Hemoglobin Concent 33.5, Red Cell Distribution Width 13.3, Calcium Level 7.0 L Vital Signs Date Time Temp Pulse Resp B/P (MAP) Pulse Ox O2 Delivery O2 Flow Rate FiO2 03/21/18 12:38 97.5 72 22 169/82 (111) 88 Nasal Cannula 4.0 I&O- Last 24 Hours up to 6 AM 03/21/18 05:59 Intake Total 1190 ml Output Total 1375 ml Balance -185 ml HAN MELGAR MD Mar 21, 2018 13:45
[2018-03-22] VITALS: BP 156/68
[2018-03-22] MEDS: IPRATROPIUM 0.5MG/ALBUTEROL 2.5MG INH SOL UD 3ML (DUONEB)(J7620) NEB PRN ×3 (00:41→05:40)
[2018-03-22] MEDS: IPRATROPIUM 0.5MG/ALBUTEROL 2.5MG INH SOL UD 3ML (DUONEB)(J7620) NEB SCH ×4 (02:00→19:02)
[2018-03-22 04:56] VITALS: BP 150/80
[2018-03-22 06:26] LABS: HEMATOCRIT 30.4 % (42.0-52.0); MEAN CORPUSCULAR HEMOGLOBIN 30.7 pg (27.0-33.0); MEAN CORPUSCULAR HGB CONC 32.9 g/dl (32.0-36.5); MEAN CORPUSCULAR VOLUME 93.3 fl (80.0-96.0); PLATELET COUNT, AUTOMATED 219 10^3/uL (150-450); RED BLOOD COUNT 3.26 10^6/uL (4.30-6.10); WHITE BLOOD COUNT 17.2 10^3/uL (4.0-10.0)
[2018-03-22 06:43] LABS: PROTHROMBIN TIME 51.4 SECONDS (12.1-14.4)
[2018-03-22 06:46] LABS: CALCIUM LEVEL 7.5 MG/DL (8.8-10.2); CREATININE FOR GFR 5.44 MG/DL (0.70-1.30); GLOMERULAR FILTRATION RATE 11.2 (>49); POTASSIUM SERUM 4.5 MEQ/L (3.5-5.1)
[2018-03-22] MEDS: SLF 3 ML SYR IV SCH ×3 (06:55→20:16)
[2018-03-22 07:06] LABS: INR 5.49
[2018-03-22] MEDS: HumaLOG INSULIN (NovoLOG) PER UNIT SC SCH ×4 (07:30→20:55)
[2018-03-22 08:00] VITALS: BP 142/78
[2018-03-22] MEDS: AZITHROMYCIN 250 MG TAB PO SCH (08:39)
[2018-03-22] MEDS: amLODIPine 5 MG TAB PO SCH (08:39)
[2018-03-22] MEDS: ZIPRASIDONE 80 MG CAP (GEODON) PO SCH ×2 (08:39→20:15)
[2018-03-22] MEDS: LEVEMIR (INSULIN DETEMIR) 1 UNITS/0.01ML SC SCH ×2 (08:40→20:15)
[2018-03-22] MEDS: NICOTINE 21MG/24HR 1 EA TRANSDERMAL TD SCH (08:40)
[2018-03-22] MEDS: predniSONE 20 MG TAB PO SCH (08:40)
[2018-03-22] MEDS: ASPIRIN 81 MG ENTERIC TAB PO SCH (08:40)
[2018-03-22] MEDS: FLUCONAZOLE 100 MG TAB PO SCH (08:40)
[2018-03-22] MEDS: ATENOLOL 50 MG TAB PO SCH (08:40)
[2018-03-22] MEDS: NYSTATIN 100,000 UNITS/GM TOPICAL PWD 15 GM TOP SCH ×2 (08:41→20:15)
[2018-03-22] MEDS: cefTRIAXone SOD 1 GM in D5W MINI-BAG PLUS 50 ML IV SCH (09:06)
[2018-03-22] MEDS: HALOPERIDOL 5 MG TAB PO SCH (09:06)
[2018-03-22] MEDS: GABAPENTIN 100 MG CAP PO SCH ×3 (09:06→20:15)
[2018-03-22] MEDS ORDERED: PHYTONADIONE 5 MG TAB PO ONE (10:00)
[2018-03-22 12:00] VITALS: BP 161/74
--- NOTE | 2018-03-22 13:11 | REP ---
Ventilation-perfusion lung scan: History: Dyspnea. Comparison chest x-ray: March 21, 2018. Technique: 1.0 mCi technetium 99m DTPA aerosol is given for the ventilation study and is followed by a 5.3 mCi technetium 99 MAA dose intravenously for the perfusion exam. Eight planar images are acquired for each portion of the study. Scintigraphic findings: There is some central bronchial perihilar inspired tracer deposition bilaterally consistent with some degree of COPD. The perfusion study shows more homogeneous of bilateral pulmonary parenchymal distribution. There are small matched perfusion defects bilaterally. There is no visible mismatched defect. Impression: Low probability scan for pulmonary embolus. Electronically Signed by Sanjay Da Silva MD 03/22/2018 06:50 P
[2018-03-22 16:00] VITALS: BP 150/80
--- NOTE | 2018-03-22 16:27 | IPN ---
DATE OF VISIT: 03/22/2018 PROGRESS NOTE: Mr. Cisneros is seen this morning on his bedside. He has acute renal failure superimposed on chronic kidney disease in the setting of congestive heart failure. He has been on Coumadin for prior deep venous thrombosis (DVT) and his international normalized ratio (INR) was 4.0 yesterday. His Coumadin was stopped and we had planned for a PermaCath placement for dialysis. I did discuss with the patient about potential need for dialysis and he was as agreeable. Today, he had several questions again and seems to be still committed to long-term dialysis. He has been diuresed due to shortness of breath and currently his diuretic is on hold due to worsening kidney function. Today, he feels somewhat better though still short of breath and on 4 liters of oxygen. He denies any nausea or vomiting. He has no fever or chills. On physical exam, temperature 97.5 degrees Fahrenheit, heart rate 82 per minute and respiratory rate 22 per minute. Blood pressure 180/90 mmHg and oxygen saturation 97% on 4 liters oxygen. His head is atraumatic. Neck is supple and jugular venous distention (JVD) somewhat difficult to be assessed. There is no oral thrush or ulcers. Heart sounds are regular, and lungs with mild bilateral expiratory wheezing and scattered rhonchi. Abdomen obese and nontender. Bowel sounds are normal and there is no palpable organomegaly. Extremities have no cyanosis or clubbing. He has a right noyzz-hqw-oqbv amputation previously and partial amputation of his left foot. There is chronic stasis changes on his left leg. Neurologically, he is awake, alert and oriented times three. Today's labs show WBC count 17.2, hemoglobin 10.0 and hematocrit 30.4. Sodium 139, potassium 4.5, CO2 of 22, BUN 150 and creatinine 5.44. Calcium level is 7.5. INR today is 5.49. PROBLEMS: 1. Acute renal failure superimposed on chronic kidney disease. Kidney function continues to worsen. Discussed with the patient about potential need for dialysis again and he is agreeable. We will try to correct his INR and request vascular surgery consult for a possible PermaCath placement. Even at baseline his creatinine has been about 2.8-3.0 mg/dL in September. I feel that his kidney function is not very much likely to improve due to congestive heart failure and advanced chronic kidney disease at baseline. 2. Congestive heart failure. His volume status is still slightly decompensated and he is requiring 4 liters of oxygen. We will plan to dialyze him as soon as it is safe to get a dialysis catheter placed. 3. Anticoagulation. His INR is 5.4 today and we will give him vitamin K 10 mg and recheck his INR tomorrow. His Coumadin has been stopped already. 4. Sepsis. His leukocytosis persists and he still on Rocephin and azithromycin. He is afebrile at present. 5. Anemia. At present, his anemia is stable and we will continue to monitor closely. 6. Chronic obstructive pulmonary disease (COPD). Patient remains on nebulizers, bronchodilators and prednisone. He is also requiring 4 liters of oxygen. I feel partly his problem is volume overload related to advanced kidney disease and congestive heart failure. We are holding his diuretic due to worsening kidney function.
--- NOTE | 2018-03-22 19:21 | ECHO ---
DATE OF PROCEDURE: 03/22/2018 AGE: 67 GENDER: Male HEIGHT: 60 inches WEIGHT: 260 pounds BODY SURFACE AREA: 2.29 m2 PATIENT LOCATION: Inpatient, room 4130 REFERRING PHYSICIAN: Naina Steinberg MD INDICATION: CHF. 2-D MEASUREMENTS: RV: 4.3 cm LV: 5.9 cm Septum: 1.3 cm Posterior wall: 1.3 cm Aortic root: 3.9 cm LA: 4.4 cm LVEF: 65% DOPPLER MEASUREMENTS AV: 1.79 m/s LVOT: 1.06 m/s LVOT diameter: 2.1 cm MV-E: 117, A: 102, EA ratio: 1.1 Early mitral deceleration time: 155 ms E prime: 7.1, A prime: 9, E/E prime ratio: 16.5 PCWP: 20.3 mmHg PV: 1.0 m/s Pulmonary artery acceleration time: 102 ms RVSP: 40 - 45 mmHg IVC: 2.2 cm COMMENTS: Normal sinus rhythm without intraventricular conduction disturbance. Technically challenging study in light of the patient's body habitus but diagnostically useful information was still obtained. M-mode and two-dimensional echocardiography was performed with pulsed, continuous wave, color flow and tissue Doppler studies. Slightly dilated and mildly hypertrophied left ventricle with normal wall motion. Mildly dilated left atrium with impairment of LV diastolic function and elevated mean left atrial pressure. Mildly dilated right heart chambers with Doppler evidence of moderate pulmonary hypertension. IVC size upper limits of normal with reduced respiratory collapse suggestive of a slightly elevated central venous pressure. Moderate aortic valvular sclerosis without stenosis or insufficiency. Slightly dilated aortic root. Mildly thickened mitral annulus with adequate leaflet excursion and mild mitral insufficiency. Normal appearing tricuspid valve with mild insufficiency. No apparent intracardiac mass or pericardial effusion. Comparing the above test findings with those of August 10, 2016 estimated mean left atrial pressure has increased as has pulmonary arterial pressure. IVC size was similar with reduced respiratory collapse in keeping with an increased central venous pressure as well.
[2018-03-22 20:00] VITALS: BP 149/84
--- NOTE | 2018-03-22 21:52 | IPNPDOC ---
Text Note Date of Service The patient was seen on 03/22/18. NOTE Subjective: No acute changes overnight. Continues to have SOB and requiring 4 liters of oxygen. No fever or chills, no chest pain , no abdominal pain , good appetite. Objective: Vitals: (see below) General: No acute distress, sitting up in chair. HEENT: Moist mucous membranes. Neck: No JVD or lymphadenopathy Cardiac: RRR, No murmurs. Pulm: Diminished breath sounds b/l. Minimal wheezing with ronchi. Basal coarse breath sounds. Abd: NT/ND + BS Ext: 1+ pitting edema left lower extremity right lower extremity. Right above- knee amputation. No cyanosis. chronic stasis changes on the left leg. Labs and Radiology reviewed(see below) Assessment/Plan: 67-year-old male with significant past medical history of CKD stage IV, PAD with right sided AKA, diastolic heart failure, and COPD, obesity, Diabetes, CAD s/p stents, Hypertension, presenting with a week long history of progressively worsening weakness and shortness of breath. He admits to a cough productive of clear, thick sputum that he has chronically and denies any fevers, chills, rhinorrhea, or nasal congestion. Does admit to sick contacts in the past 2 weeks who have had common cold-like symptoms. He lives at home alone and says he hasn't been able to find his medications for the last week so he hasn't taken any of them for at least a week. He also states it is difficult for him to see the bottles because of his cataracts. Acute hypoxic respiratory failure due to CHF exacerbation and COPD exacerbation due to RSV infection continues to require 4 liter oxygen . Does not use oxygen at home. continue oxygen supplementation COPD with pulmonary hypertension and possible right heart failure with exacerbation secondary to RSV. Continue nebs, steroids. Taper steroids to prednisone. Diastolic CHF exacerbation seems to be appearing to euvolemia. creatinine on the rise. He probably has significant CKD stage 4 to 5 and his creatinine before was underestimated due to fluid overload. fluid managemnt as per Nephrology. Will need HD. Uncontrolled diabetes mellitus- blood sugars elevated likely secondary to RSV as well as steroids. Increase Levemir dose. Sliding scale insulin. Acute kidney on chronic kidney disease. Baseline creatinine probably around 3.5 to 4.0 Renal ultrasound with no hydronephrosis. renal functions worsening. so diuretics held. planned for initiating HD this admission. History of peripheral artery disease will need outpatient follow-up History of left common iliac artery aneurysm for which patient had refused repair and surgery in the past. History of CAD status post PCI- continue home meds. Hypertension controlled continue current meds. History of morbid obesity complicated care. History of diabetic neuropathy History of schizoaffective disorder. Continue meds. History of left lower extremity DVT on Coumadin. INR supra therapeutic so coumadin on hold. recieved vit k today. DVT prophy: On Coumadin. VS,Fishbone, I+O VS, Fishbone, I+O Laboratory Tests 03/22/18 06:09 Red Blood Count 3.26 L, Mean Corpuscular Volume 93.3, Mean Corpuscular Hemoglobin 30.7, Mean Corpuscular Hemoglobin Concent 32.9, Red Cell Distribution Width 13.5, Calcium Level 7.5 L Vital Signs Date Time Temp Pulse Resp B/P (MAP) Pulse Ox O2 Delivery O2 Flow Rate FiO2 03/22/18 16:00 97.7 80 22 150/80 (103) 90 Nasal Cannula 4.0 I&O- Last 24 Hours up to 6 AM 03/22/18 06:00 Intake Total 1350 ml Output Total 1775 ml Balance -425 ml HAN MELGAR MD Mar 22, 2018 21:52
[2018-03-23] VITALS: BP 145/85
[2018-03-23 04:00] VITALS: BP 143/75
[2018-03-23] MEDS: IPRATROPIUM 0.5MG/ALBUTEROL 2.5MG INH SOL UD 3ML (DUONEB)(J7620) NEB PRN (05:52)
[2018-03-23] MEDS: IPRATROPIUM 0.5MG/ALBUTEROL 2.5MG INH SOL UD 3ML (DUONEB)(J7620) NEB SCH ×4 (05:52→19:04)
[2018-03-23] MEDS: SLF 3 ML SYR IV SCH ×3 (06:00→20:56)
[2018-03-23 06:43] LABS: HEMATOCRIT 30.7 % (42.0-52.0); HEMOGLOBIN 9.8 g/dl (13.5-17.5); MEAN CORPUSCULAR HEMOGLOBIN 30.2 pg (27.0-33.0); MEAN CORPUSCULAR HGB CONC 31.9 g/dl (32.0-36.5); MEAN CORPUSCULAR VOLUME 94.8 fl (80.0-96.0); PLATELET COUNT, AUTOMATED 202 10^3/uL (150-450); RED BLOOD COUNT 3.24 10^6/uL (4.30-6.10); WHITE BLOOD COUNT 16.6 10^3/uL (4.0-10.0)
[2018-03-23 06:53] LABS: INR 2.3; PROTHROMBIN TIME 25.8 SECONDS (12.1-14.4)
[2018-03-23] MEDS ORDERED: HEPARIN 1,000 UNITS/ML 10ML VIAL (FOR RADIOLOGY& DIALYSIS ONLY) As Ordered ONE (06:55)
[2018-03-23] MEDS ORDERED: LIDOCAINE 2% MDV 20 ML VIAL As Ordered ONE (06:55)
[2018-03-23 07:03] LABS: CALCIUM LEVEL 8.1 MG/DL (8.8-10.2); CREATININE FOR GFR 5.12 MG/DL (0.70-1.30); GLOMERULAR FILTRATION RATE 12.1 (>49); POTASSIUM SERUM 4.6 MEQ/L (3.5-5.1)
[2018-03-23 09:50] VITALS: BP 182/80
[2018-03-23] MEDS: GABAPENTIN 100 MG CAP PO SCH ×3 (10:13→20:54)
[2018-03-23] MEDS: AZITHROMYCIN 250 MG TAB PO SCH (10:13)
[2018-03-23] MEDS: ZIPRASIDONE 80 MG CAP (GEODON) PO SCH ×2 (10:13→20:54)
[2018-03-23] MEDS: HALOPERIDOL 5 MG TAB PO SCH (10:13)
[2018-03-23] MEDS: predniSONE 20 MG TAB PO SCH (10:13)
[2018-03-23] MEDS: FLUCONAZOLE 100 MG TAB PO SCH (10:13)
[2018-03-23] MEDS: HumaLOG INSULIN (NovoLOG) PER UNIT SC SCH ×4 (10:13→20:55)
[2018-03-23] MEDS: amLODIPine 5 MG TAB PO SCH (10:14)
[2018-03-23] MEDS: ASPIRIN 81 MG ENTERIC TAB PO SCH (10:14)
[2018-03-23] MEDS: ATENOLOL 50 MG TAB PO SCH (10:14)
[2018-03-23] MEDS: NYSTATIN 100,000 UNITS/GM TOPICAL PWD 15 GM TOP SCH ×2 (10:15→20:56)
[2018-03-23] MEDS: NICOTINE 21MG/24HR 1 EA TRANSDERMAL TD SCH (10:15)
[2018-03-23] MEDS: cefTRIAXone SOD 1 GM in D5W MINI-BAG PLUS 50 ML IV SCH (10:15)
[2018-03-23] MEDS: LEVEMIR (INSULIN DETEMIR) 1 UNITS/0.01ML SC SCH ×2 (10:44→20:55)
[2018-03-23] MEDS ORDERED: FUROSEMIDE 40 MG/4 ML VIAL (J1940) IV ONE (11:15)
[2018-03-23 12:10] VITALS: BP 158/80
[2018-03-23 16:20] VITALS: BP 164/80
[2018-03-23] MEDS ORDERED: WARFARIN SOD 5 MG TAB PO SCH (17:00)
[2018-03-23 21:40] VITALS: BP 144/52
--- NOTE | 2018-03-23 22:39 | IPNPDOC ---
Text Note Date of Service The patient was seen on 03/23/18. NOTE Subjective: No acute changes overnight. Had percath placed this am. Continues to have SOB and requiring 4 liters of oxygen. No fever or chills, no chest pain , no abdominal pain , good appetite. Plan for initiaing [facility] tomorrow. Objective: Vitals: (see below) General: No acute distress, sitting up in chair. HEENT: Moist mucous membranes. Neck: No JVD or lymphadenopathy Cardiac: RRR, No murmurs. Pulm: Diminished breath sounds b/l. Minimal wheezing with ronchi. Basal coarse breath sounds. Abd: NT/ND + BS Ext: 1+ pitting edema left lower extremity right lower extremity. Right above- knee amputation. No cyanosis. chronic stasis changes on the left leg. Labs and Radiology reviewed(see below) Assessment/Plan: 67-year-old male with significant past medical history of CKD stage IV, PAD with right sided AKA, diastolic heart failure, and COPD, obesity, Diabetes, CAD s/p stents, Hypertension, presenting with a week long history of progressively worsening weakness and shortness of breath. He admits to a cough productive of clear, thick sputum that he has chronically and denies any fevers, chills, rhinorrhea, or nasal congestion. Does admit to sick contacts in the past 2 weeks who have had common cold-like symptoms. He lives at home alone and says he hasn't been able to find his medications for the last week so he hasn't taken any of them for at least a week. He also states it is difficult for him to see the bottles because of his cataracts. Acute hypoxic respiratory failure due to CHF exacerbation and COPD exacerbation due to RSV infection continues to require 4 liter oxygen . Does not use oxygen at home. continue oxygen supplementation Not responding well to diuretics with progressive CKD. . Now in stage V. planned for initialing HD which will take care of the fluid issues. COPD with pulmonary hypertension and possible right heart failure with exacerbation secondary to RSV. Continue nebs, steroids. Taper steroids to prednisone. Diastolic CHF exacerbation seems to be appearing to euvolemia. creatinine on the rise. He probably has significant CKD stage 4 to 5 and his creatinine before was underestimated due to fluid overload. fluid managemnt as per Nephrology. Will need HD. Uncontrolled diabetes mellitus- blood sugars elevated likely secondary to RSV as well as steroids. Increase Levemir dose. Sliding scale insulin. Acute kidney on chronic kidney disease. Baseline creatinine probably around 3.5 to 4.0 Renal ultrasound with no hydronephrosis. renal functions worsening now has been in ckd V since this admission with worse roosevelt with diuretics planned for initiating HD this admission. History of peripheral artery disease will need outpatient follow-up History of left common iliac artery aneurysm for which patient had refused repair and surgery in the past. History of CAD status post PCI- continue home meds. Hypertension controlled continue current meds. History of morbid obesity complicated care. History of diabetic neuropathy History of schizoaffective disorder. Continue meds. History of left lower extremity DVT on Coumadin. INR supra therapeutic so coumadin on hold. recieved vit k today. DVT prophy: On Coumadin. VS,Fishbone, I+O VS, Fishbone, I+O Laboratory Tests 03/23/18 06:13 Red Blood Count 3.24 L, Mean Corpuscular Volume 94.8, Mean Corpuscular Hemo globin 30.2, Mean Corpuscular Hemoglobin Concent 31.9 L, Red Cell Distribution Width 13.3, Calcium Level 8.1 L Vital Signs Date Time Temp Pulse Resp B/P (MAP) Pulse Ox O2 Delivery O2 Flow Rate FiO2 03/23/18 12:10 97.0 68 23 158/80 (106) 91 Nasal Cannula 2.0 I&O- Last 24 Hours up to 6 AM 03/23/18 06:00 Intake Total 1650 ml Output Total 1200 ml Balance 450 ml HAN MELGAR MD Mar 23, 2018 13:49
[2018-03-24 01:43] VITALS: BP 138/60
[2018-03-24] MEDS: SLF 3 ML SYR IV SCH ×3 (05:21→21:05)
[2018-03-24 06:00] VITALS: BP 132/78
[2018-03-24] MEDS: IPRATROPIUM 0.5MG/ALBUTEROL 2.5MG INH SOL UD 3ML (DUONEB)(J7620) NEB SCH ×4 (06:23→20:13)
[2018-03-24 06:28] LABS: HEMATOCRIT 29.5 % (42.0-52.0); HEMOGLOBIN 9.6 g/dl (13.5-17.5); MEAN CORPUSCULAR HEMOGLOBIN 30.4 pg (27.0-33.0); MEAN CORPUSCULAR HGB CONC 32.5 g/dl (32.0-36.5); MEAN CORPUSCULAR VOLUME 93.4 fl (80.0-96.0); PLATELET COUNT, AUTOMATED 192 10^3/uL (150-450); RED BLOOD COUNT 3.16 10^6/uL (4.30-6.10); WHITE BLOOD COUNT 13.4 10^3/uL (4.0-10.0)
[2018-03-24 06:38] LABS: INR 1.41; PROTHROMBIN TIME 17.4 SECONDS (12.1-14.4)
[2018-03-24 06:48] LABS: CALCIUM LEVEL 7.9 MG/DL (8.8-10.2); CREATININE FOR GFR 5.02 MG/DL (0.70-1.30); GLOMERULAR FILTRATION RATE 12.3 (>49); POTASSIUM SERUM 4.7 MEQ/L (3.5-5.1)
[2018-03-24] MEDS: LEVEMIR (INSULIN DETEMIR) 1 UNITS/0.01ML SC SCH ×2 (07:53→21:05)
[2018-03-24] MEDS: HumaLOG INSULIN (NovoLOG) PER UNIT SC SCH ×4 (07:53→22:19)
[2018-03-24] MEDS: NICOTINE 21MG/24HR 1 EA TRANSDERMAL TD SCH (07:54)
[2018-03-24] MEDS: ZIPRASIDONE 80 MG CAP (GEODON) PO SCH ×2 (07:54→21:04)
[2018-03-24] MEDS: ASPIRIN 81 MG ENTERIC TAB PO SCH (07:54)
[2018-03-24] MEDS: HALOPERIDOL 5 MG TAB PO SCH (07:54)
[2018-03-24] MEDS: predniSONE 20 MG TAB PO SCH (07:54)
[2018-03-24] MEDS: GABAPENTIN 100 MG CAP PO SCH ×3 (07:55→21:04)
[2018-03-24] MEDS: AZITHROMYCIN 250 MG TAB PO SCH (07:55)
[2018-03-24] MEDS: FLUCONAZOLE 100 MG TAB PO SCH (07:55)
[2018-03-24] MEDS: ATENOLOL 50 MG TAB PO SCH (07:56)
[2018-03-24] MEDS: NYSTATIN 100,000 UNITS/GM TOPICAL PWD 15 GM TOP SCH ×2 (07:56→21:05)
[2018-03-24] MEDS: amLODIPine 5 MG TAB PO SCH (07:56)
[2018-03-24] MEDS: cefTRIAXone SOD 1 GM in D5W MINI-BAG PLUS 50 ML IV SCH (10:22)
[2018-03-24 12:09] LABS: HEPATITIS B CORE ANTIBODY IGM NEGATIVE (NEGATIVE); HEPATITIS B SURFACE ANTIBODY NEGATIVE (POSITIVE); HEPATITIS B SURFACE ANTIGEN NEGATIVE (NEGATIVE); HEPATITIS C VIRUS ABY INDEX 0.1 INDEX (<0.8)
--- NOTE | 2018-03-24 14:34 | IPNPDOC ---
Text Note Date of Service The patient was seen on 03/24/18. NOTE Subjective: No acute changes overnight. Continues to have SOB and requiring 4 liters of oxygen. No fever or chills, no chest pain , no abdominal pain , good appetite. Plan for initialing hd today Objective: Vitals: (see below) General: No acute distress, sitting up in chair. HEENT: Moist mucous membranes. Neck: No JVD or lymphadenopathy Cardiac: RRR, No murmurs. Pulm: Diminished breath sounds b/l. Minimal wheezing with ronchi. Basal coarse breath sounds. Abd: NT/ND + BS Ext: 1+ pitting edema left lower extremity right lower extremity. Right above- knee amputation. No cyanosis. chronic stasis changes on the left leg. Labs and Radiology reviewed(see below) Assessment/Plan: 67-year-old male with significant past medical history of CKD stage IV, PAD with right sided AKA, diastolic heart failure, and COPD, obesity, Diabetes, CAD s/p stents, Hypertension, presenting with a week long history of progressively worsening weakness and shortness of breath. He admits to a cough productive of clear, thick sputum that he has chronically and denies any fevers, chills, rhinorrhea, or nasal congestion. Does admit to sick contacts in the past 2 weeks who have had common cold-like symptoms. He lives at home alone and says he hasn't been able to find his medications for the last week so he hasn't taken any of them for at least a week. He also states it is difficult for him to see the bottles because of his cataracts. Acute hypoxic respiratory failure due to CHF exacerbation and COPD exacerbation due to RSV infection continues to require 4 liter oxygen . Does not use oxygen at home. continue oxygen supplementation Not responding well to diuretics with progressive CKD. . Now in stage V. planned for initialing HD which will take care of the fluid issues. COPD with pulmonary hypertension and possible right heart failure with exacerbation secondary to RSV. Continue nebs, steroids. Taper steroids to prednisone. Diastolic CHF exacerbation seems to be appearing to euvolemia. creatinine on the rise. He probably has significant CKD stage 4 to 5 and his creatinine before was underestimated due to fluid overload. fluid managemnt as per Nephrology. Will need HD. Uncontrolled diabetes mellitus- blood sugars elevated likely secondary to RSV as well as steroids. Increase Levemir dose. Sliding scale insulin. Acute kidney on chronic kidney disease. Baseline creatinine probably around 3.5 to 4.0 Renal ultrasound with no hydronephrosis. renal functions worsening now has been in ckd V since this admission with worsening with diuretics planned for initiating HD this admission. History of peripheral artery disease will need outpatient follow-up History of left common iliac artery aneurysm for which patient had refused repair and surgery in the past. History of CAD status post PCI- continue home meds. Hypertension controlled continue current meds. History of morbid obesity complicated care. History of diabetic neuropathy History of schizoaffective disorder. Continue meds. History of left lower extremity DVT on Coumadin. INR supra therapeutic so coumadin on hold. recieved vit k today. DVT prophy: On Coumadin. VS,Fishbone, I+O VS, Fishbone, I+O Laboratory Tests 03/24/18 06:04 Red Blood Count 3.16 L, Mean Corpuscular Volume 93.4, Mean Corpuscular Hemoglobin 30.4, Mean Corpuscular Hemoglobin Concent 32.5, Red Cell Distribution Width 13.2, Calcium Level 7.9 L Vital Signs Date Time Temp Pulse Resp B/P (MAP) Pulse Ox O2 Delivery O2 Flow Rate FiO2 03/24/18 09:00 2.0 03/24/18 07:56 70 130/80 03/24/18 06:00 97.3 18 91 Nasal Cannula I&O- Last 24 Hours up to 6 AM 03/24/18 05:59 Intake Total 1250 ml Output Total 2900 ml Balance -1650 ml HAN MELGAR MD Mar 24, 2018 14:34
[2018-03-24] MEDS ORDERED: HEPARIN 1,000 UNITS/ML 10ML VIAL (FOR RADIOLOGY& DIALYSIS ONLY) IV ONE (14:45)
[2018-03-24] MEDS ORDERED: HEPARIN 1,000 UNITS/ML 10ML VIAL (FOR RADIOLOGY& DIALYSIS ONLY) XX ONE (14:45)
[2018-03-24] MEDS: WARFARIN SOD 7.5 MG TAB PO SCH (17:00)
[2018-03-24 18:00] VITALS: BP 140/73
--- NOTE | 2018-03-24 21:17 | IPN ---
DATE: 03/24/2018 Mr. Cisneros is seen this morning on his bedside. He is still short of breath and feels tired today. He denies any nausea or vomiting. He remains on oxygen 3 liters via nasal cannula. There is no fever or chills. He had a Perma-Cath placed yesterday and will be dialyzed this afternoon. PHYSICAL EXAMINATION Temperature 97.3 degrees Fahrenheit, heart rate 70 per minute and respiratory rate 20 per minute. Blood pressure 144/52 mmHg and oxygen saturation 91%. His head is atraumatic. Neck is supple and JVD is difficult to be assessed. There is no oral thrush or ulcers. Heart: Sounds are regular and lungs with diminished breath sounds and mild expiratory wheezing. Abdomen is obese and nontender and bowel sounds are normal. Extremities have no cyanosis or clubbing. He has right ekjnf-yhq-omyd amputation and partial amputation of left foot which is wrapped in dressing. Neurologically he is at his baseline mentation, but does feel tired. Today's labs show WBC count down to 13.4, hemoglobin 9.6 and hematocrit 29.5. Platelets 192. Sodium 143, potassium 4.7, CO2 21, BUN 119 and creatinine 5.02. Glucose 218 and calcium 7.19. PROBLEMS: 1. End-stage renal disease. The patient is going to start dialysis today and will be dialyzed this afternoon. He had a right internal jugular vein Perma-Cath placed yesterday which will be used for dialysis. 2. Pneumonia. He is afebrile and has been on ceftriaxone in addition to nebulizers and prednisone. 3. Congestive heart failure and shortness of breath. Is slightly better with aggressive diuresis. However, his kidney function has worsened. His oxygen saturation is still about 90% and we will plan to dialyze him today. We will try to remove about 1 to 1-1/2 liters of fluid with dialysis today. 4. Anemia. His anemia is stable at this point and we will continue to watch. We will give him Aranesp next week with dialysis and also check his iron studies.
[2018-03-24 22:00] VITALS: BP 169/74
[2018-03-25] MEDS: IPRATROPIUM 0.5MG/ALBUTEROL 2.5MG INH SOL UD 3ML (DUONEB)(J7620) NEB SCH ×4 (02:24→21:04)
[2018-03-25 06:00] VITALS: BP 159/67
[2018-03-25] MEDS: SLF 3 ML SYR IV SCH ×3 (06:00→21:29)
[2018-03-25 06:39] LABS: HEMATOCRIT 28.6 % (42.0-52.0); HEMOGLOBIN 9.3 g/dl (13.5-17.5); MEAN CORPUSCULAR HEMOGLOBIN 30.7 pg (27.0-33.0); MEAN CORPUSCULAR HGB CONC 32.5 g/dl (32.0-36.5); MEAN CORPUSCULAR VOLUME 94.4 fl (80.0-96.0); PLATELET COUNT, AUTOMATED 182 10^3/uL (150-450); RED BLOOD COUNT 3.03 10^6/uL (4.30-6.10); WHITE BLOOD COUNT 13.7 10^3/uL (4.0-10.0)
[2018-03-25 06:48] LABS: INR 1.26; PROTHROMBIN TIME 15.9 SECONDS (12.1-14.4)
[2018-03-25 07:11] LABS: CALCIUM LEVEL 7.5 MG/DL (8.8-10.2); CREATININE FOR GFR 3.69 MG/DL (0.70-1.30); GLOMERULAR FILTRATION RATE 17.6 (>49); POTASSIUM SERUM 3.9 MEQ/L (3.5-5.1)
[2018-03-25] MEDS: NICOTINE 21MG/24HR 1 EA TRANSDERMAL TD SCH (08:36)
[2018-03-25] MEDS: ATENOLOL 50 MG TAB PO SCH (08:37)
[2018-03-25] MEDS: HumaLOG INSULIN (NovoLOG) PER UNIT SC SCH ×4 (08:37→21:28)
[2018-03-25] MEDS: NYSTATIN 100,000 UNITS/GM TOPICAL PWD 15 GM TOP SCH ×2 (08:37→21:04)
[2018-03-25] MEDS: LEVEMIR (INSULIN DETEMIR) 1 UNITS/0.01ML SC SCH ×2 (08:37→21:28)
[2018-03-25] MEDS: HALOPERIDOL 5 MG TAB PO SCH (08:37)
[2018-03-25] MEDS: ZIPRASIDONE 80 MG CAP (GEODON) PO SCH ×2 (08:38→20:32)
[2018-03-25] MEDS: GABAPENTIN 100 MG CAP PO SCH ×3 (08:38→20:32)
[2018-03-25] MEDS: FLUCONAZOLE 100 MG TAB PO SCH (08:38)
[2018-03-25] MEDS: predniSONE 10 MG TAB PO SCH (08:38)
[2018-03-25] MEDS: amLODIPine 5 MG TAB PO SCH (08:38)
[2018-03-25] MEDS: ASPIRIN 81 MG ENTERIC TAB PO SCH (08:38)
--- NOTE | 2018-03-25 12:44 | IPNPDOC ---
Text Note Date of Service The patient was seen on 03/25/18. NOTE Subjective: No acute changes overnight. Continues to have sob, but oxygen requ irement has decreased also his respiratory rate is lower. Had first session of HD yesterday no issues. no fever or chills. Objective: Vitals: (see below) General: No acute distress, sitting up in chair. HEENT: Moist mucous membranes. Neck: No JVD or lymphadenopathy Cardiac: RRR, No murmurs. Pulm: Diminished breath sounds b/l. Minimal wheezing with ronchi. Basal coarse breath sounds. Abd: NT/ND + BS Ext: 1+ pitting edema left lower extremity right lower extremity. Right above- knee amputation. No cyanosis. chronic stasis changes on the left leg. Labs and Radiology reviewed(see below) Assessment/Plan: 67-year-old male with significant past medical history of CKD stage IV, PAD with right sided AKA, diastolic heart failure, and COPD, obesity, Diabetes, CAD s/p stents, Hypertension, presenting with a week long history of progressively worsening weakness and shortness of breath. He admits to a cough productive of clear, thick sputum that he has chronically and denies any fevers, chills, rhinorrhea, or nasal congestion. Does admit to sick contacts in the past 2 weeks who have had common cold-like symptoms. He lives at home alone and says he hasn't been able to find his medications for the last week so he hasn't taken any of them for at least a week. He also states it is difficult for him to see the bottles because of his cataracts. Acute hypoxic respiratory failure due to CHF exacerbation and COPD exacerbation due to RSV infection continues to require 4 liter oxygen . Does not use oxygen at home. continue oxygen supplementation Not responding well to diuretics with progressive CKD. . Now in stage V. planned for initialing HD which will take care of the fluid issues. COPD with pulmonary hypertension and possible right heart failure with exacerbation secondary to RSV. Continue nebs, steroids. Taper steroids to prednisone. Diastolic CHF exacerbation seems to be appearing to euvolemia. creatinine on the rise. He probably has significant CKD stage 4 to 5 and his creatinine before was underestimated due to fluid overload. fluid management as per Nephrology. Uncontrolled diabetes mellitus- blood sugars elevated likely secondary to RSV as well as steroids. Increased Levemir dose. Sliding scale insulin. Acute kidney on chronic kidney disease. Baseline creatinine probably around 3.5 to 4.0 Renal ultrasound with no hydronephrosis. renal functions worsening now has been in ckd V since this admission with worsening with diuretics Initiated HD this admission History of peripheral artery disease will need outpatient follow-up History of left common iliac artery aneurysm for which patient had refused repair and surgery in the past. History of CAD status post PCI- continue home meds. Hypertension controlled continue current meds. History of morbid obesity complicated care. History of diabetic neuropathy History of schizoaffective disorder. Continue meds. History of left lower extremity DVT on Coumadin. will continue to monitor INR and adjust coumadin dosage as needed. DVT prophy: On Coumadin. VS,Fishbone, I+O VS, Fishbone, I+O Laboratory Tests 03/25/18 05:45 Red Blood Count 3.03 L, Mean Corpuscular Volume 94.4, Mean Corpuscular Hemoglobin 30.7, Mean Corpuscular Hemoglobin Concent 32.5, Red Cell Distribution Width 13.2, Calcium Level 7.5 L Vital Signs Date Time Temp Pulse Resp B/P (MAP) Pulse Ox O2 Delivery O2 Flow Rate FiO2 03/25/18 08:38 65 159/67 03/25/18 08:00 3.0 03/25/18 06:00 98.9 20 92 Nasal Cannula I&O- Last 24 Hours up to 6 AM 03/25/18 05:59 Intake Total 990 ml Output Total 2225 ml Balance -1235 ml HAN MELGAR MD Mar 25, 2018 12:44
[2018-03-25] MEDS ORDERED: HEPARIN 1,000 UNITS/ML 10ML VIAL (FOR RADIOLOGY& DIALYSIS ONLY) XX ONE (13:15)
[2018-03-25] MEDS ORDERED: HEPARIN 1,000 UNITS/ML 10ML VIAL (FOR RADIOLOGY& DIALYSIS ONLY) IV ONE (13:15)
[2018-03-25] MEDS: WARFARIN SOD 7.5 MG TAB PO SCH (17:31)
[2018-03-25] MEDS ORDERED: DARBEPOETIN 100 MCG/0.5 ML *DIALYSIS* SYRINGE (J0882) IV SCH (18:15)
[2018-03-25 22:00] VITALS: BP 182/78
[2018-03-26] MEDS: IPRATROPIUM 0.5MG/ALBUTEROL 2.5MG INH SOL UD 3ML (DUONEB)(J7620) NEB SCH ×4 (01:47→20:10)
[2018-03-26] MEDS: SLF 3 ML SYR IV SCH ×3 (05:53→22:22)
[2018-03-26 06:00] VITALS: BP 153/69
[2018-03-26] MEDS: HumaLOG INSULIN (NovoLOG) PER UNIT SC SCH ×4 (07:30→20:14)
[2018-03-26] MEDS: GABAPENTIN 100 MG CAP PO SCH ×3 (08:15→20:14)
[2018-03-26] MEDS: amLODIPine 5 MG TAB PO SCH (08:15)
[2018-03-26] MEDS: NICOTINE 21MG/24HR 1 EA TRANSDERMAL TD SCH (08:15)
[2018-03-26] MEDS: HALOPERIDOL 5 MG TAB PO SCH (08:16)
[2018-03-26] MEDS: FLUCONAZOLE 100 MG TAB PO SCH (08:16)
[2018-03-26] MEDS: ATENOLOL 50 MG TAB PO SCH (08:16)
[2018-03-26] MEDS: predniSONE 10 MG TAB PO SCH (08:16)
[2018-03-26] MEDS: ASPIRIN 81 MG ENTERIC TAB PO SCH (08:16)
[2018-03-26] MEDS: ZIPRASIDONE 80 MG CAP (GEODON) PO SCH ×2 (08:16→20:14)
[2018-03-26] MEDS: NYSTATIN 100,000 UNITS/GM TOPICAL PWD 15 GM TOP SCH ×2 (08:22→20:15)
[2018-03-26] MEDS: LEVEMIR (INSULIN DETEMIR) 1 UNITS/0.01ML SC SCH ×2 (08:23→20:15)
--- NOTE | 2018-03-26 08:49 | IPN ---
DATE OF VISIT: 03/25/2018 Mr. Cisneros is seen this morning on his bedside. He is still feeling tired and dyspnea has improved. He denies any nausea or vomiting. He underwent first hemodialysis yesterday which he tolerated reasonably well and we were able to remove about 2 liters of fluid. PHYSICAL EXAMINATION: Temperature 98.9 degrees Fahrenheit, heart rate 65 per minute and respiratory rate 20 per minute. Blood pressure 159/67 mmHg and oxygen saturation 92% on 2 liters oxygen. His head is atraumatic. Neck veins are difficult to be assessed. There is no oral thrush or ulcers. Lungs with diminished breath sounds but no wheezing or rales audible today. Heart sounds are regular. Abdomen obese, soft and nontender. Extremities have no cyanosis or clubbing. He has a right fqyru-adw-dhuz amputation previously and partial amputation of left foot. Neurologically he is at his baseline mentation. Today's labs show WBC count 30, hemoglobin 9.3 and hematocrit 28.6. Platelets 182. Sodium 141, potassium 3.9, chloride 106, CO2 25, BUN 70 and creatinine 3.69. PROBLEMS: 1. End-stage renal disease. The patient was dialyzed yesterday for the first time and he will be dialyzed again this afternoon. He is likely to require long-term maintenance hemodialysis. 2. Congestive heart failure and hypoxemia. His volume status has improved significantly. We will try to remove another 1.5 liters today with dialysis. His diuretics have been stopped. 3. Anemia. His anemia is essentially stable and we will continue to monitor closely. Will give him Aranesp 100 mcg with his dialysis next week. 4. Hypertension. Blood pressure is reasonably well-controlled on current antihypertensive medications. No changes are being made today. 5. Chronic obstructive pulmonary disease (COPD). The patient seems to be gradually improving. I would recommend to continue with nebulizers.
[2018-03-26] MEDS: SENOKOT S TAB PO SCH ×2 (13:11→20:14)
[2018-03-26 14:00] VITALS: BP_SYST 155
[2018-03-26] MEDS: WARFARIN SOD 7.5 MG TAB PO SCH (17:30)
[2018-03-26 22:00] VITALS: BP 168/73
[2018-03-26] MEDS: IPRATROPIUM 0.5MG/ALBUTEROL 2.5MG INH SOL UD 3ML (DUONEB)(J7620) NEB PRN (23:40)
--- NOTE | 2018-03-26 23:57 | IPNPDOC ---
Text Note Date of Service The patient was seen on 03/26/18. NOTE Subjective: No acute changes overnight. Continues to have sob, but oxygen requirement has decreased also his respiratory rate is lower. Had2 sessions pf HD so far. His SOB has now improved and oxygen requirement has gone down. Objective: Vitals: (see below) General: No acute distress, sitting up in chair. HEENT: Moist mucous membranes. Neck: No JVD or lymphadenopathy Cardiac: RRR, No murmurs. Pulm: Diminished breath sounds b/l. Minimal wheezing with ronchi. Basal coarse breath sounds. Abd: NT/ND + BS Ext: 1+ pitting edema left lower extremity right lower extremity. Right above- knee amputation. No cyanosis. chronic stasis changes on the left leg. Labs and Radiology reviewed(see below) Assessment/Plan: 67-year-old male with significant past medical history of CKD stage IV, PAD with right sided AKA, diastolic heart failure, and COPD, obesity, Diabetes, CAD s/p stents, Hypertension, presenting with a week long history of progressively worsening weakness and shortness of breath. He admits to a cough productive of clear, thick sputum that he has chronically and denies any fevers, chills, rhinorrhea, or nasal congestion. Does admit to sick contacts in the past 2 weeks who have had common cold-like symptoms. He lives at home alone and says he hasn't been able to find his medications for the last week so he hasn't taken any of them for at least a week. He also states it is difficult for him to see the bottles because of his cataracts. Acute hypoxic respiratory failure due to CHF exacerbation and COPD exacerbation due to RSV infection continues to require 4 liter oxygen . Does not use oxygen at home. continue oxygen supplementation Not responding well to diuretics with progressive CKD. . Now in stage V. planned for initialing HD which will take care of the fluid issues. COPD with pulmonary hypertension and possible right heart failure with exacerbation secondary to RSV. Continue nebs, steroids. Taper steroids to prednisone. Diastolic CHF exacerbation seems to be appearing to euvolemia. creatinine on the rise. He probably has significant CKD stage 4 to 5 and his creatinine before was underestimated due to fluid overload. fluid management as per Nephrology. Uncontrolled diabetes mellitus- blood sugars elevated likely secondary to RSV as well as steroids. Increased Levemir dose. Sliding scale insulin. ESRD Was ckd V during admission with worsening with diuretics Initiated HD this admission and now is ESRD> History of peripheral artery disease will need outpatient follow-up History of left common iliac artery aneurysm for which patient had refused repair and surgery in the past. History of CAD status post PCI- continue home meds. Hypertension controlled continue current meds. History of morbid obesity complicated care. History of diabetic neuropathy History of schizoaffective disorder. Continue meds. History of left lower extremity DVT on Coumadin. will continue to monitor INR and adjust coumadin dosage as needed. DVT prophy: On Coumadin. VS,Fishbone, I+O VS, Fishbone, I+O Vital Signs Date Time Temp Pulse Resp B/P (MAP) Pulse Ox O2 Delivery O2 Flow Rate FiO2 03/26/18 20:15 2.0 03/26/18 14:00 97.8 65 18 155/ (84) 38 Nasal Cannula I&O- Last 24 Hours up to 6 AM 03/26/18 05:59 Intake Total 1080 ml Output Total 2050 ml Balance -970 ml HAN MELGAR MD Mar 26, 2018 23:57
[2018-03-27] MEDS: BISACODYL 5 MG TAB PO PRN (01:18)
[2018-03-27] MEDS: IPRATROPIUM 0.5MG/ALBUTEROL 2.5MG INH SOL UD 3ML (DUONEB)(J7620) NEB SCH ×4 (01:37→21:23)
[2018-03-27 06:00] VITALS: BP 119/57
[2018-03-27] MEDS: SLF 3 ML SYR IV SCH ×3 (06:05→21:28)
[2018-03-27 06:12] LABS: BASO % 0.1 % (0.0-1.0); EOS # 0.1 10^3/uL (0.0-0.50); EOS % 0.6 % (0.0-3.0); HEMATOCRIT 29.6 % (42.0-52.0); HEMOGLOBIN 9.7 g/dl (13.5-17.5); LYMPH # 1.1 10^3/uL (1.5-4.5); MEAN CORPUSCULAR HEMOGLOBIN 30.5 pg (27.0-33.0); MEAN CORPUSCULAR HGB CONC 32.8 g/dl (32.0-36.5); MEAN CORPUSCULAR VOLUME 93.1 fl (80.0-96.0); MONO # 0.9 10^3/uL (0.0-0.8); NEUTROPHILS # 12.8 10^3/uL (1.8-7.7); NEUTROPHILS % 81.8 % (36.0-66.0); PLATELET COUNT, AUTOMATED 180 10^3/uL (150-450); RED BLOOD COUNT 3.18 10^6/uL (4.30-6.10); WHITE BLOOD COUNT 15.6 10^3/uL (4.0-10.0)
[2018-03-27 06:38] LABS: CALCIUM LEVEL 7.9 MG/DL (8.8-10.2); CREATININE FOR GFR 3.62 MG/DL (0.70-1.30)
--- NOTE | 2018-03-27 07:50 | IPN ---
DATE: 03/26/2018 Mr. Cisneros seen this morning on his bedside. He is feeling well and denies any specific complaints. He was dialyzed yesterday. His dyspnea has improved and oxygen saturation is now up to 95% on 2 liters while a few days ago he was saturating only 90% with 4 liters oxygen. He denies any nausea or vomiting. On physical exam, temperature 97.0 degrees Fahrenheit, heart rate 58 per minute and respiratory rate 18 per minute. Blood pressure 153/69 mmHg and oxygen saturation 95% on 2 liters oxygen. Intake and output records from yesterday showed total intake 1080 and output 1900 out of which 1500 was removed by dialysis. Today his output has been about 800 mL so far. His head is atraumatic. Neck is supple and jugular venous distention (JVD) is difficult to be assessed. His heart sounds are regular and lungs have improved breath sounds without any wheezing at present. Abdomen is obese, soft and nontender and bowel sounds are present. Extremities have no cyanosis or clubbing. He has prior right vjzan-zez-nffk amputation and partial amputation of left foot. There is some chronic stasis changes on the left leg, however, erythema has improved. PROBLEMS: 1. End-stage renal disease. I have explained to the patient once again that his kidney function is close to 10% and he is likely to be dialysis dependent. He is expressing reservations and he does not feel that he needs dialysis. However, so far, his BUN and creatinine have only improved with dialysis. His volume status has also improved significantly since we dialyzed him three times. 2. Congestive heart failure and hypoxemia. He is still requiring 2 liters of oxygen. However, his volume status has improved significantly. He will be dialyzed again tomorrow and we will try to remove another 1.5 to 2 liters of fluid as tolerated. 3. Anemia. His anemia is stable and he will be given Aranesp 100 mcg with his next dialysis treatment. 4. Generalized weakness and deconditioning. I would recommend the patient should get physical therapy and he is likely to require subacute rehab. I am not sure how he was functioning at home prior to this admission.
[2018-03-27] MEDS: NICOTINE 21MG/24HR 1 EA TRANSDERMAL TD SCH (09:05)
[2018-03-27] MEDS: ATENOLOL 50 MG TAB PO SCH (09:06)
[2018-03-27] MEDS: ZIPRASIDONE 80 MG CAP (GEODON) PO SCH ×2 (09:06→21:27)
[2018-03-27] MEDS: SENOKOT S TAB PO SCH ×2 (09:06→21:27)
[2018-03-27] MEDS: amLODIPine 5 MG TAB PO SCH (09:06)
[2018-03-27] MEDS: predniSONE 10 MG TAB PO SCH (09:06)
[2018-03-27] MEDS: HALOPERIDOL 5 MG TAB PO SCH (09:06)
[2018-03-27] MEDS: GABAPENTIN 100 MG CAP PO SCH ×3 (09:06→21:27)
[2018-03-27] MEDS: ASPIRIN 81 MG ENTERIC TAB PO SCH (09:06)
[2018-03-27] MEDS: LEVEMIR (INSULIN DETEMIR) 1 UNITS/0.01ML SC SCH ×2 (09:07→21:28)
[2018-03-27] MEDS: HumaLOG INSULIN (NovoLOG) PER UNIT SC SCH ×4 (09:07→21:27)
[2018-03-27] MEDS: NYSTATIN 100,000 UNITS/GM TOPICAL PWD 15 GM TOP SCH ×2 (09:08→21:28)
[2018-03-27 11:01] LABS: FOLATE 7.8 NG/ML (>5.4)
[2018-03-27] MEDS: IPRATROPIUM 0.5MG/ALBUTEROL 2.5MG INH SOL UD 3ML (DUONEB)(J7620) NEB PRN (11:05)
--- NOTE | 2018-03-27 11:15 | IPN ---
DATE: 03/27/2018 Mr. Cisneros is seen this morning on his bedside. He is feeling well and is in good spirits today. He wants to go home and feels that he is ready to go home. He reports that his dyspnea has improved. He denies any nausea or vomiting. He is still using oxygen 2 liters via nasal cannula. On physical examination, temperature 97.9 degrees Fahrenheit, heart rate 72 per minute and respiratory rate 20 per minute. Blood pressure 119/57 mmHg and oxygen saturation 96% on 2 liters oxygen. His head is atraumatic. Neck is supple and jugular venous distention (JVD) is not abnormally elevated. Internal jugular vein in right side has a Perma-Cath present. Heart sounds are regular and lungs have diminished breath sounds, but no wheezing or rales. Abdomen: Obese and nontender. Bowel sounds are present. Extremities have no cyanosis or clubbing. He has a right dkwfq-kyd-zhsq amputation previously and a partial amputation of the left foot. Neurologically he is awake, alert and oriented times three. Today's labs show WBC count up to 15.6, hemoglobin 9.7 and hematocrit 29.6. Platelets are 180. Sodium 139, potassium 4.0, CO2 25, BUN 57 and creatinine 3.62. PROBLEMS: 1. End-stage renal disease. The patient is currently dialysis dependent and he will be dialyzed again tomorrow. His last dialysis was on Tuesday. 2. Congestive heart failure. His volume status is reasonably well-compensated at present and he is off diuretics. We are removing fluid with dialysis as tolerated. 3. Anemia is stable and he will receive Aranesp 100 mcg tomorrow with his dialysis. 4. Leukocytosis. He has been treated with antibiotics and is also on prednisone. He is currently not on any antibiotic. The source of his leukocytosis is uncertain. I would suggest to cut down his prednisone dose as his dyspnea was mostly related to hypervolemia and not due to chronic obstructive pulmonary disease (COPD). 5. Hypertension. Blood pressure is well-controlled on current antihypertensive meds. 6. Disposition. The patient wants to go home and I have discussed with nursing staff and advised to get him out of bed. He will need a home safety evaluation.
--- NOTE | 2018-03-27 13:45 | IPNPDOC ---
Text Note Date of Service The patient was seen on 03/27/18. NOTE Subjective: No acute changes overnight. Continues to have sob, but oxygen requ irement has decreased also his respiratory rate is lower. Had2 sessions pf HD so far. Next one due on tuesday. His SOB has now improved and oxygen requirement has gone down. He wants to go home. He will probably need to go home with oxygen , counselled about not to restart smoking after going home. He does have a prosthetic leg but says the sleeve is loose and so he cannot fit it. Objective: Vitals: (see below) General: No acute distress, sitting up in chair. HEENT: Moist mucous membranes. Neck: No JVD or lymphadenopathy Cardiac: RRR, No murmurs. Pulm: Diminished breath sounds b/l. Minimal wheezing with ronchi. Basal coarse breath sounds. Abd: NT/ND + BS Ext: 1+ pitting edema left lower extremity right lower extremity. Right above- knee amputation. No cyanosis. chronic stasis changes on the left leg. Labs and Radiology reviewed(see below) Assessment/Plan: 67-year-old male with significant past medical history of CKD stage IV, PAD with right sided AKA, diastolic heart failure, and COPD, obesity, Diabetes, CAD s/p stents, Hypertension, presenting with a week long history of progressively worsening weakness and shortness of breath. He admits to a cough productive of clear, thick sputum that he has chronically and denies any fevers, chills, rhinorrhea, or nasal congestion. Does admit to sick contacts in the past 2 weeks who have had common cold-like symptoms. He lives at home alone and says he hasn't been able to find his medications for the last week so he hasn't taken any of them for at least a week. He also states it is difficult for him to see the bottles because of his cataracts. Acute hypoxic respiratory failure due to CHF exacerbation and COPD exacerbation due to RSV infection continues to require 4 liter oxygen . Does not use oxygen at home. continue oxygen supplementation Not responding well to diuretics with progressive CKD. . Now in stage V. planned for initialing HD which will take care of the fluid issues. COPD with pulmonary hypertension and possible right heart failure with exacerbation secondary to RSV. Continue nebs, steroids. Taper steroids to prednisone. Diastolic CHF exacerbation seems to be appearing to euvolemia. creatinine on the rise. He probably has significant CKD stage 4 to 5 and his creatinine before was underestimated due to fluid overload. fluid management as per Nephrology. Uncontrolled diabetes mellitus- blood sugars elevated likely secondary to RSV as well as steroids. Increased Levemir dose. Sliding scale insulin. ESRD Was ckd V during admission with worsening with diuretics Initiated HD this admission and now is ESRD History of peripheral artery disease will need outpatient follow-up History of left common iliac artery aneurysm for which patient had refused repair and surgery in the past. History of CAD status post PCI- continue home meds. Hypertension controlled continue current meds. History of morbid obesity complicated care. History of diabetic neuropathy History of schizoaffective disorder. Continue meds. History of left lower extremity DVT on Coumadin. will continue to monitor INR and adjust coumadin dosage as needed. DVT prophy: On Coumadin. PT , OT eval and home safety eval for possible discharge home on Tuesday. VS,Fishbone, I+O VS, Fishbone, I+O Laboratory Tests 03/27/18 05:55 Red Blood Count 3.18 L, Mean Corpuscular Volume 93.1, Mean Corpuscular Hemoglobin 30.5, Mean Corpuscular Hemoglobin Concent 32.8, Red Cell Distribution Width 13.1, Neutrophils (%) (Auto) 81.8 H, Lymphocytes (%) (Auto) 7.0 L, Monocytes (%) (Auto) 6.0 H, Eosinophils (%) (Auto) 0.6, Basophils (%) (Auto) 0.1, Neutrophils # (Auto) 12.8 H, Lymphocytes # (Auto) 1.1 L, Monocytes # (Auto) 0.9 H, Eosinophils # (Auto) 0.1, Basophils # (Auto) 0.0, Calcium Level 7.9 L Vital Signs Date Time Temp Pulse Resp B/P (MAP) Pulse Ox O2 Delivery O2 Flow Rate FiO2 03/27/18 11:32 2.0 03/27/18 09:06 72 119/57 03/27/18 06:00 97.9 20 96 Nasal Cannula I&O- Last 24 Hours up to 6 AM 03/27/18 06:00 Intake Total 1260 ml Output Total 1350 ml Balance -90 ml HAN MELGAR MD Mar 27, 2018 13:45
[2018-03-27 14:00] VITALS: BP 125/60
[2018-03-27] MEDS: ACETAMINOPHEN TAB 650MG DOSE (2X325MG) PO PRN (17:26)
[2018-03-27] MEDS: WARFARIN SOD 7.5 MG TAB PO SCH (17:26)
[2018-03-27 22:00] VITALS: BP 171/76
[2018-03-28] MEDS: IPRATROPIUM 0.5MG/ALBUTEROL 2.5MG INH SOL UD 3ML (DUONEB)(J7620) NEB SCH ×4 (02:00→23:07)
[2018-03-28 06:00] VITALS: BP 158/74
[2018-03-28] MEDS: SLF 3 ML SYR IV SCH ×3 (06:00→22:05)
--- NOTE | 2018-03-28 06:39 | IPNPDOC ---
Date Seen The patient was seen on 03/28/18. Progress Note Subjective: Patient was seen and examined overnight. c/o dry nose with saline prn at the bedside. He requests eh crackers this morning. No acute changes overnight. Continues to have sob, but oxygen requirement has decreased also his respiratory rate is lower. Had2 sessions pf HD so far. Next one due on today. His SOB has now improved and oxygen requirement has gone down. He wants to go home. He will probably need to go home with oxygen , counselled about not to restart smoking after going home. He does have a prosthetic leg but says the sleeve is loose and so he cannot fit it. Objective: Vitals: (see below) General: No acute distress, sitting up in chair. HEENT: Moist mucous membranes. Neck: No JVD or lymphadenopathy Cardiac: RRR, No murmurs. Pulm: Diminished breath sounds b/l. Minimal wheezing with ronchi. Basal coarse breath sounds. Abd: NT/ND + BS Ext: 1+ pitting edema left lower extremity right lower extremity. Right above- knee amputation. No cyanosis. chronic stasis changes on the left leg. Labs and Radiology reviewed(see below) Assessment/Plan: 67-year-old male with significant past medical history of CKD stage IV, PAD with right sided AKA, diastolic heart failure, and COPD, obesity, Diabetes, CAD s/p stents, Hypertension, presenting with a week long history of progressively worsening weakness and shortness of breath. He admits to a cough productive of clear, thick sputum that he has chronically and denies any fevers, chills, rhinorrhea, or nasal congestion. Does admit to sick contacts in the past 2 weeks who have had common cold-like symptoms. He lives at home alone and says he hasn't been able to find his medications for the last week so he hasn't taken any of them for at least a week. He also states it is difficult for him to see the bottles because of his cataracts. Acute hypoxic respiratory failure due to CHF exacerbation and COPD exacerbation due to RSV infection continues to require 4 liter oxygen . Does not use oxygen at home. continue oxygen supplementation Not responding well to diuretics with progressive CKD. . Now in stage V. planned for initialing HD which will take care of the fluid issues. COPD with pulmonary hypertension and possible right heart failure with exacerbation secondary to RSV. Continue nebs, steroids. Taper steroids to prednisone. Diastolic CHF exacerbation seems to be appearing to euvolemia. creatinine on the rise. He probably has significant CKD stage 4 to 5 and his creatinine before was underestimated due to fluid overload. fluid management as per Nephrology. Uncontrolled diabetes mellitus- blood sugars elevated likely secondary to RSV as well as steroids. Increased Levemir dose. Sliding scale insulin. ESRD Was ckd V during admission with worsening with diuretics Initiated HD this admission and now is ESRD History of peripheral artery disease will need outpatient follow-up History of left common iliac artery aneurysm for which patient had refused repa ir and surgery in the past. History of CAD status post PCI- continue home meds. Hypertension controlled continue current meds. History of morbid obesity complicated care. History of diabetic neuropathy History of schizoaffective disorder. Continue meds. History of left lower extremity DVT on Coumadin. will continue to monitor INR and adjust coumadin dosage as needed. DVT prophy: On Coumadin. disposition: possible discharge home on Tuesday pending physical therapy clearance. VS, I&O, 24H, Fishbone Vital Signs/I&O Vital Signs Date Time Temp Pulse Resp B/P (MAP) Pulse Ox O2 Delivery O2 Flow Rate FiO2 03/28/18 06:00 98.3 66 18 158/74 (102) 96 Nasal Cannula 2.0 I&O- Last 24 Hours up to 6 AM 03/28/18 06:00 Intake Total 1080 ml Output Total 2250 ml Balance -1170 ml Laboratory Data 24H LABS Laboratory Tests 2 03/27/18 08:01: Bedside Glucose (Misc Panel) 202H 03/27/18 11:38: Bedside Glucose (Misc Panel) 185H 03/27/18 17:00: Bedside Glucose (Misc Panel) 280H 03/27/18 20:20: Bedside Glucose (Misc Panel) 317H Microbiology Microbiology 03/18/18 Blood Culture - Final, Complete NO GROWTH AFTER 5 DAYS 03/18/18 Blood Culture - Final, Complete NO GROWTH AFTER 5 DAYS 03/18/18 Gram Stain - Final, Complete 03/18/18 Sputum Culture - Final, Complete Proteus Mirabilis 03/18/18 Gram Stain - Final, Complete 03/18/18 Sputum Culture - Final, Complete 03/18/18 Respiratory Virus Panel (PCR) ([facility]) - Final, Complete Human Rhinovirus/Enterovirus JESÚS,TRELL C. MD Mar 28, 2018 06:39
[2018-03-28 06:48] LABS: BASO % 0.2 % (0.0-1.0); EOS # 0.1 10^3/uL (0.0-0.50); EOS % 0.7 % (0.0-3.0); HEMATOCRIT 27.1 % (42.0-52.0); HEMOGLOBIN 8.8 g/dl (13.5-17.5); LYMPH % 7.2 % (24.0-44.0); MEAN CORPUSCULAR HEMOGLOBIN 30.8 pg (27.0-33.0); MEAN CORPUSCULAR HGB CONC 32.5 g/dl (32.0-36.5); MEAN CORPUSCULAR VOLUME 94.8 fl (80.0-96.0); MONO # 0.8 10^3/uL (0.0-0.8); MONO % 6.1 % (0.0-5.0); NEUTROPHILS % 81.6 % (36.0-66.0); PLATELET COUNT, AUTOMATED 158 10^3/uL (150-450); RED BLOOD COUNT 2.86 10^6/uL (4.30-6.10); WHITE BLOOD COUNT 13.4 10^3/uL (4.0-10.0)
[2018-03-28 07:01] LABS: INR 2.22
[2018-03-28 07:20] LABS: CALCIUM LEVEL 7.5 MG/DL (8.8-10.2); CREATININE FOR GFR 3.69 MG/DL (0.70-1.30); GLOMERULAR FILTRATION RATE 17.6 (>49); POTASSIUM SERUM 4.2 MEQ/L (3.5-5.1)
[2018-03-28] MEDS: HumaLOG INSULIN (NovoLOG) PER UNIT SC SCH ×4 (08:56→21:00)
[2018-03-28] MEDS: SENOKOT S TAB PO SCH ×2 (08:57→22:04)
[2018-03-28] MEDS: predniSONE 10 MG TAB PO SCH (08:57)
[2018-03-28] MEDS: GABAPENTIN 100 MG CAP PO SCH ×3 (08:57→22:04)
[2018-03-28] MEDS: LEVEMIR (INSULIN DETEMIR) 1 UNITS/0.01ML SC SCH ×2 (08:57→22:06)
[2018-03-28] MEDS: ZIPRASIDONE 80 MG CAP (GEODON) PO SCH ×2 (08:57→22:04)
[2018-03-28] MEDS: HALOPERIDOL 5 MG TAB PO SCH (08:57)
[2018-03-28] MEDS: NICOTINE 21MG/24HR 1 EA TRANSDERMAL TD SCH (08:57)
[2018-03-28] MEDS: NYSTATIN 100,000 UNITS/GM TOPICAL PWD 15 GM TOP SCH ×2 (08:57→22:05)
[2018-03-28] MEDS: ASPIRIN 81 MG ENTERIC TAB PO SCH (08:58)
[2018-03-28] MEDS: ATENOLOL 50 MG TAB PO SCH (08:58)
[2018-03-28] MEDS: amLODIPine 5 MG TAB PO SCH (08:58)
[2018-03-28] MEDS ORDERED: HEPARIN 1,000 UNITS/ML 10ML VIAL (FOR RADIOLOGY& DIALYSIS ONLY) IV ONE (11:15)
[2018-03-28] MEDS ORDERED: HEPARIN 1,000 UNITS/ML 10ML VIAL (FOR RADIOLOGY& DIALYSIS ONLY) XX ONE (11:15)
--- NOTE | 2018-03-28 11:28 | IPN ---
DATE OF SERVICE: 03/28/2018 Mr. Cisneros is seen this morning on his bedside. He is feeling better and looking forward to going home. His dyspnea has improved, though he still requiring 2 liters oxygen. His oxygen saturation is up to 96% and 97%. He has been dialyzed a few times during the last couple of weeks. Before starting dialysis, he was requiring 4 liter oxygen, and his oxygen saturation was barely about 90%. With fluid removal, his oxygen saturation has improved significantly. It is important to know that he was not on oxygen prior to admission. The patient denies any nausea, vomiting, fever, or chills. On physical examination, temperature 98.3 degrees Fahrenheit, heart rate 66 per minute, and respiratory rate 18 per minute. Blood pressure 158/74 mmHg and oxygen saturation 96% on 2 liters oxygen. Head is atraumatic. Neck veins are difficult to be assessed. There is no oral thrush or ulcers. Heart sounds are regular. Lung sounds clear to auscultation. Abdomen is soft, obese, and nontender. Bowel sounds are normal. Extremities have no cyanosis or clubbing. He has a previous right kmomr-ssf-hdvo amputation and partial amputation of left foot. Neurologically, he is awake, alert, and oriented times three. Today's laboratories show WBC count 13.4, hemoglobin 8.8, and hematocrit 27.1. Platelets are 158. Sodium 140, potassium 4.2, CO2 23, BUN 65, and creatinine 3.69. Glucose 218 and calcium 7.5. PROBLEMS: 1. End-stage renal disease. The patient will be dialyzed this afternoon. He has been tolerating dialysis treatment well so far. New catheter is working very well. 2. Congestive heart failure. Volume status has improved significantly, and we will try to remove 2 liters of fluid today. He is still requiring 2 liters of oxygen. We hope that his oxygen can be weaned off before he can get discharged. 3. Anemia. His anemia is fluctuating, and we have already started Aranesp 100 mcg once a week. There is no active blood loss. 4. Anticoagulation. His international normalized ratio (INR) is today 2.22, and he remains on Coumadin. Dose is being adjusted by hospitalist service. 5. Generalized weakness and deconditioning. The patient is improving, and he is getting out in the wheelchair now. He will need home safety evaluation prior to discharge. DISPOSITION: The patient is going to require maintenance hemodialysis. Patient and family services needs to get an outpatient dialysis slot for him.
[2018-03-28] MEDS: WARFARIN SOD 7.5 MG TAB PO SCH (17:45)
[2018-03-28] MEDS: ACETAMINOPHEN TAB 650MG DOSE (2X325MG) PO PRN (20:18)
[2018-03-28 22:00] VITALS: BP 178/81
[2018-03-28] MEDS: BISACODYL 5 MG TAB PO PRN (22:04)
[2018-03-29 06:00] VITALS: BP 180/80
[2018-03-29] MEDS: SLF 3 ML SYR IV SCH ×3 (06:00→22:00)
[2018-03-29 06:12] LABS: BASO % 0.2 % (0.0-1.0); EOS # 0.2 10^3/uL (0.0-0.50); EOS % 1.1 % (0.0-3.0); HEMATOCRIT 29.4 % (42.0-52.0); HEMOGLOBIN 9.6 g/dl (13.5-17.5); LYMPH # 1.9 10^3/uL (1.5-4.5); LYMPH % 11.9 % (24.0-44.0); MEAN CORPUSCULAR HEMOGLOBIN 30.8 pg (27.0-33.0); MEAN CORPUSCULAR HGB CONC 32.7 g/dl (32.0-36.5); MEAN CORPUSCULAR VOLUME 94.2 fl (80.0-96.0); NEUTROPHILS # 12.4 10^3/uL (1.8-7.7); NEUTROPHILS % 76.8 % (36.0-66.0); PLATELET COUNT, AUTOMATED 158 10^3/uL (150-450); RED BLOOD COUNT 3.12 10^6/uL (4.30-6.10); WHITE BLOOD COUNT 16.1 10^3/uL (4.0-10.0)
[2018-03-29 06:38] LABS: CALCIUM LEVEL 7.8 MG/DL (8.8-10.2); CREATININE FOR GFR 2.67 MG/DL (0.70-1.30); GLOMERULAR FILTRATION RATE 25.5 (>49); POTASSIUM SERUM 3.6 MEQ/L (3.5-5.1)
[2018-03-29 06:39] LABS: INR 2.27; PROTHROMBIN TIME 25.5 SECONDS (12.1-14.4)
[2018-03-29] MEDS: IPRATROPIUM 0.5MG/ALBUTEROL 2.5MG INH SOL UD 3ML (DUONEB)(J7620) NEB SCH ×3 (07:08→19:50)
[2018-03-29] MEDS ORDERED: ATENOLOL 50 MG TAB PO ONE (07:30)
[2018-03-29] MEDS: NICOTINE 21MG/24HR 1 EA TRANSDERMAL TD SCH (08:28)
[2018-03-29] MEDS: HumaLOG INSULIN (NovoLOG) PER UNIT SC SCH ×4 (08:28→21:00)
[2018-03-29] MEDS: LEVEMIR (INSULIN DETEMIR) 1 UNITS/0.01ML SC SCH ×2 (08:28→22:00)
[2018-03-29] MEDS: ZIPRASIDONE 80 MG CAP (GEODON) PO SCH ×2 (08:29→22:05)
[2018-03-29] MEDS: amLODIPine 5 MG TAB PO SCH (08:29)
[2018-03-29] MEDS: SENOKOT S TAB PO SCH ×2 (08:29→21:57)
[2018-03-29] MEDS: NYSTATIN 100,000 UNITS/GM TOPICAL PWD 15 GM TOP SCH ×2 (08:29→21:58)
[2018-03-29] MEDS: HALOPERIDOL 5 MG TAB PO SCH (08:29)
[2018-03-29] MEDS: GABAPENTIN 100 MG CAP PO SCH ×3 (08:29→21:57)
[2018-03-29] MEDS: ASPIRIN 81 MG ENTERIC TAB PO SCH (08:29)
[2018-03-29] MEDS: predniSONE 10 MG TAB PO SCH (08:29)
--- NOTE | 2018-03-29 08:31 | REP ---
CHEST X-RAY: Two views. HISTORY: Increased white blood cell count. Rule out pneumonia. COMPARISON STUDY: March 21, 2018. FINDINGS: A tunnel catheter has been inserted on the right side with its tip in the expected location of the superior vena cava. There is no evidence of pneumothorax or hydrothorax. Heart is mildly enlarged unchanged. Lung garcia are otherwise clear. IMPRESSION: No new infiltrate. Right-sided tunnel catheter. Cardiomegaly. Electronically Signed by Sanjay Da Silva MD 03/29/2018 09:34 A
--- NOTE | 2018-03-29 11:45 | IPNPDOC ---
Date Seen The patient was seen on 03/29/18. Progress Note Subjective: Despite uncontrolled BP pt has no c/o headache, chest pain, pressure, tightness, dizziness, or lightheadedness. norvasc increased to 10 mg. Objective: Vitals: (see below) General: No acute distress, sitting up in chair. HEENT: Moist mucous membranes. Neck: No JVD or lymphadenopathy Cardiac: RRR, No murmurs. Pulm: Diminished breath sounds b/l. Minimal wheezing with ronchi. Basal coarse breath sounds. Abd: NT/ND + BS Ext: 1+ pitting edema left lower extremity right lower extremity. Right above- knee amputation. No cyanosis. chronic stasis changes on the left leg. Labs and Radiology reviewed(see below) Assessment/Plan: 67-year-old male with significant past medical history of CKD stage IV, PAD with right sided AKA, diastolic heart failure, and COPD, obesity, Diabetes, CAD s/p stents, Hypertension, presenting with a week long history of progressively worsening weakness and shortness of breath. He admits to a cough productive of clear, thick sputum that he has chronically and denies any fevers, chills, rhinorrhea, or nasal congestion. Does admit to sick contacts in the past 2 weeks who have had common cold-like symptoms. He lives at home alone and says he hasn't been able to find his medications for the last week so he hasn't taken any of them for at least a week. He also states it is difficult for him to see the bottles because of his cataracts. Acute hypoxic respiratory failure due to CHF exacerbation and COPD exacerbation due to RSV infection continues to require 4 liter oxygen . Does not use oxygen at home. continue oxygen supplementation Not responding well to diuretics with progressive CKD. . Now in stage V. planned for initialing HD which will take care of the fluid issues. COPD with pulmonary hypertension and possible right heart failure with exacerbation secondary to RSV. Continue nebs, steroids. Taper steroids to prednisone. Diastolic CHF exacerbation seems to be appearing to euvolemia. creatinine on the rise. He probably has significant CKD stage 4 to 5 and his creatinine before was underestimated due to fluid overload. fluid management as per Nephrology. Uncontrolled diabetes mellitus- blood sugars elevated likely secondary to RSV as well as steroids. Increased Levemir dose. Sliding scale insulin. ESRD Was ckd V during admission with worsening with diuretics Initiated HD this admission and now is ESRD History of peripheral artery disease will need outpatient follow-up History of left common iliac artery aneurysm for which patient had refused repair and surgery in the past. History of CAD status post PCI- continue home meds. Hypertension controlled continue current meds. History of morbid obesity complicated care. History of diabetic neuropathy History of schizoaffective disorder. Continue meds. History of left lower extremity DVT on Coumadin. will continue to monitor INR and adjust coumadin dosage as needed. DVT prophy: On Coumadin. disposition: pending physical therapy clearance. VS, I&O, 24H, Fishbone Vital Signs/I&O Vital Signs Date Time Temp Pulse Resp B/P (MAP) Pulse Ox O2 Delivery O2 Flow Rate FiO2 03/29/18 06:00 97.3 58 18 180/80 (113) 97 Nasal Cannula 2.0 I&O- Last 24 Hours up to 6 AM 03/29/18 06:00 Intake Total 840 ml Output Total 2700 ml Balance -1860 ml Laboratory Data 24H LABS Laboratory Tests 2 03/28/18 11:37: Bedside Glucose (Misc Panel) 142H 03/28/18 17:45: Bedside Glucose (Misc Panel) 178H 03/28/18 21:20: Bedside Glucose (Misc Panel) 232H 03/29/18 05:39: Immature Granulocyte % (Auto) 4.0H, White Blood Count 16.1H, Red Blood Count 3.12L, Hemoglobin 9.6L, Hematocrit 29.4L, Mean Corpuscular Volume 94.2, Mean Corpuscular Hemoglobin 30.8, Mean Corpuscular Hemoglobin Concent 32.7, Red Cell Distribution Width 13.3, Platelet Count 158, Neutrophils (%) (Auto) 76.8H, Lymphocytes (%) (Auto) 11.9L, Monocytes (%) (Auto) 6.0H, Eosinophils (%) (Auto) 1.1, Basophils (%) (Auto) 0.2, Neutrophils # (Auto) 12.4H, Lymphocytes # (Auto) 1.9, Monocytes # (Auto) 1.0H, Eosinophils # (Auto) 0.2, Basophils # (Auto) 0.0, Nucleated Red Blood Cells % (auto) 0.0, Prothrombin Time 25.5H, Prothromb Time International Ratio 2.27, Anion Gap 8, Glomerular Filtration Rate 25.5L, Blood Urea Nitrogen 39H, Creatinine 2.67H, Sodium Level 138, Potassium Level 3.6, Chloride Level 105, Carbon Dioxide Level 25, Calcium Level 7.8L CBC/BMP Laboratory Tests 03/29/18 05:39 Red Blood Count 3.12 L, Mean Corpuscular Volume 94.2, Mean Corpuscular Hemoglobin 30.8, Mean Corpuscular Hemoglobin Concent 32.7, Red Cell Distribution Width 13.3, Neutrophils (%) (Auto) 76.8 H, Lymphocytes (%) (Auto) 11.9 L, Monocytes (%) (Auto) 6.0 H, Eosinophils (%) (Auto) 1.1, Basophils (%) (Auto) 0.2, Neutrophils # (Auto) 12.4 H, Lymphocytes # (Auto) 1.9, Monocytes # (Auto) 1.0 H, Eosinophils # (Auto) 0.2, Basophils # (Auto) 0.0, Calcium Level 7.8 L TRELL ESPINOSA MD Mar 29, 2018 07:11
--- NOTE | 2018-03-29 11:53 | IPN ---
DATE: 03/29/2018 Mr. Cisneros is seen this morning on his bedside. He is feeling well and denies any complaints. He was dialyzed yesterday afternoon and he tolerated his dialysis treatment very well. He denies any nausea or vomiting. He remains on 2 liters oxygen via nasal cannula and his oxygen saturation is 97%. PHYSICAL EXAMINATION: Temperature 97.3 degrees Fahrenheit, heart rate 58 per minute and respiratory rate 18 per minute. Blood pressure 180/80 mmHg and oxygen saturation 97% on 2 liters oxygen. Head is atraumatic. Neck is supple and JVD is not abnormally elevated. He has a right-sided internal jugular vein hemodialysis catheter in place. Heart sounds are regular and lungs sound clear to auscultation. Abdomen soft, obese and nontender. Bowel sounds are normal. Extremities have no cyanosis or clubbing. He has prior right [id number] amputation and partial amputation of his left foot. Neurologically he is awake, alert and at his baseline mentation. Today's labs show WBC count 16.1, hemoglobin 9.6 and hematocrit 29.4. Sodium 138, potassium 3.6, CO2 25, BUN 39 and creatinine 2.67. Calcium is 7.8. PROBLEMS: 1. End-stage renal disease. The patient was dialyzed yesterday and next dialysis will be scheduled for tomorrow. His volume status is well-compensated at present and there is no emergent need for dialysis today. 2. Hypoxemia and congestive heart failure. Volume status has improved significantly and he is almost euvolemic now. We will try to remove about 2 liters of fluid with next dialysis. 3. Leukocytosis, etiology is uncertain. The patient has been afebrile and his repeat chest x-ray this morning did not show any infiltrate. He has been on prednisone for possible COPD and I would suggest to stop his prednisone. There is no other obvious source of infection. We can draw blood cultures if he gets any fever. Other option would also be to do a CT scan of abdomen and pelvis to look for any source of infection. 4. Generalized weakness and deconditioning. The patient feels that he is about his baseline. He will need home safety evaluation prior to discharge. 5. Anemia. At present, his anemia is stable and we will continue to manage with dialysis. He receives Aranesp once a week, which will be continued.
[2018-03-29] MEDS ORDERED: amLODIPine 5 MG TAB PO ONE (12:00)
[2018-03-29 14:00] VITALS: BP 144/62
[2018-03-29] MEDS: WARFARIN SOD 7.5 MG TAB PO SCH (16:24)
[2018-03-29 20:00] VITALS: BP 172/80
[2018-03-29] MEDS: BISACODYL 5 MG TAB PO PRN (21:57)
[2018-03-29] MEDS: ACETAMINOPHEN TAB 650MG DOSE (2X325MG) PO PRN (21:58)
[2018-03-30] MEDS: IPRATROPIUM 0.5MG/ALBUTEROL 2.5MG INH SOL UD 3ML (DUONEB)(J7620) NEB SCH ×4 (02:00→20:01)
[2018-03-30 06:00] VITALS: BP 182/70
[2018-03-30] MEDS: SLF 3 ML SYR IV SCH ×3 (06:00→22:35)
[2018-03-30 06:20] LABS: BASO % 0.2 % (0.0-1.0); EOS # 0.1 10^3/uL (0.0-0.50); EOS % 0.6 % (0.0-3.0); HEMATOCRIT 29.8 % (42.0-52.0); HEMOGLOBIN 9.5 g/dl (13.5-17.5); LYMPH # 1.5 10^3/uL (1.5-4.5); LYMPH % 9.3 % (24.0-44.0); MEAN CORPUSCULAR HEMOGLOBIN 30.3 pg (27.0-33.0); MEAN CORPUSCULAR HGB CONC 31.9 g/dl (32.0-36.5); MEAN CORPUSCULAR VOLUME 94.9 fl (80.0-96.0); MONO # 0.9 10^3/uL (0.0-0.8); MONO % 5.7 % (0.0-5.0); NEUTROPHILS # 12.7 10^3/uL (1.8-7.7); NEUTROPHILS % 80.2 % (36.0-66.0); PLATELET COUNT, AUTOMATED 160 10^3/uL (150-450); RED BLOOD COUNT 3.14 10^6/uL (4.30-6.10); WHITE BLOOD COUNT 15.9 10^3/uL (4.0-10.0)
[2018-03-30 06:27] LABS: INR 2.66; PROTHROMBIN TIME 28.9 SECONDS (12.1-14.4)
[2018-03-30 06:35] LABS: CALCIUM LEVEL 7.6 MG/DL (8.8-10.2); CREATININE FOR GFR 3.31 MG/DL (0.70-1.30); GLOMERULAR FILTRATION RATE 19.9 (>49); POTASSIUM SERUM 3.9 MEQ/L (3.5-5.1)
--- NOTE | 2018-03-30 06:49 | IPNPDOC ---
Date Seen The patient was seen on 03/30/18. Progress Note Subjective: Despite uncontrolled BP pt has no c/o headache, chest pain, pressure, tightness, dizziness, or lightheadedness, with no improvement deespite norvasc being increased to 10 mg on 03/29/18. Pt has no new complaints. HD seat arranged as outpt and pt ready to be discharged tuesday. Objective: Vitals: (see below) General: No acute distress, sitting up in chair. HEENT: Moist mucous membranes. Neck: No JVD or lymphadenopathy Cardiac: RRR, No murmurs. Pulm: Diminished breath sounds b/l. Minimal wheezing with ronchi. Basal coarse breath sounds. Abd: NT/ND + BS Ext: 1+ pitting edema left lower extremity right lower extremity. Right above- knee amputation. No cyanosis. chronic stasis changes on the left leg. Labs and Radiology reviewed(see below) Assessment/Plan: 67-year-old male with significant past medical history of CKD stage IV, PAD with right sided AKA, diastolic heart failure, and COPD, obesity, Diabetes, CAD s/p stents, Hypertension, presenting with a week long history of progressively worsening weakness and shortness of breath. He admits to a cough productive of clear, thick sputum that he has chronically and denies any fevers, chills, rhinorrhea, or nasal congestion. Does admit to sick contacts in the past 2 weeks who have had common cold-like symptoms. He lives at home alone and says he hasn't been able to find his medications for the last week so he hasn't taken any of them for at least a week. He also states it is difficult for him to see the bottles because of his cataracts. Acute hypoxic respiratory failure due to CHF exacerbation due to RSV infection continues to require 4 liter oxygen . Does not use oxygen at home. continue oxygen supplementation Not responding well to diuretics with progressive CKD. . Now in stage V. received HD x3 sessions as inpt which will take care of the fluid issues. COPD with pulmonary hypertension secondary to RSV. s/p prednisone. respiratory issues thought to be secondary to fluid overload rather than an acute copd exacerbation. PRN nebs. Diastolic CHF exacerbation seems to be appearing to euvolemia. creatinine on the rise. He probably has significant CKD stage 4 to 5 and his creatinine before was underestimated due to fluid overload. fluid management as per Nephrology. s/p HD x 3 sessions. outpt HD arranged. ready to dc home. Uncontrolled diabetes mellitus- blood sugars elevated likely secondary to RSV as well as steroids. Increased Levemir dose. Sliding scale insulin. ESRD Was ckd V during admission with worsening with diuretics Initiated HD this admission and now is ESRD with outpt HD approved. History of peripheral artery disease will need outpatient follow-up History of left common iliac artery aneurysm for which patient had refused repair and surgery in the past. History of CAD status post PCI- continue home meds. Hypertension controlled continue current meds. History of morbid obesity complicated care. History of diabetic neuropathy History of schizoaffective disorder. Continue meds. History of left lower extremity DVT on Coumadin. will continue to monitor INR and adjust coumadin dosage as needed. currently therapeutic at current dose DVT prophy: On Coumadin. disposition: dc on 03/31/18 VS, I&O, 24H, Fishbone Vital Signs/I&O Vital Signs Date Time Temp Pulse Resp B/P (MAP) Pulse Ox O2 Delivery O2 Flow Rate FiO2 03/30/18 06:00 97.2 62 22 182/70 (107) 97 Nasal Cannula 2.0 I&O- Last 24 Hours up to 6 AM 03/30/18 06:00 Intake Total 1560 ml Output Total 2150 ml Balance -590 ml Laboratory Data 24H LABS Laboratory Tests 2 03/29/18 11:44: Bedside Glucose (Misc Panel) 245H 03/29/18 16:58: Bedside Glucose (Misc Panel) 178H 03/29/18 21:05: Bedside Glucose (Misc Panel) 214H 03/30/18 05:33: Immature Granulocyte % (Auto) 4.0H, White Blood Count 15.9H, Red Blood Count 3.14L, Hemoglobin 9.5L, Hematocrit 29.8L, Mean Corpuscular Volume 94.9, Mean Co rpuscular Hemoglobin 30.3, Mean Corpuscular Hemoglobin Concent 31.9L, Red Cell Distribution Width 13.2, Platelet Count 160, Neutrophils (%) (Auto) 80.2H, Lymphocytes (%) (Auto) 9.3L, Monocytes (%) (Auto) 5.7H, Eosinophils (%) (Auto) 0.6, Basophils (%) (Auto) 0.2, Neutrophils # (Auto) 12.7H, Lymphocytes # (Auto) 1.5, Monocytes # (Auto) 0.9H, Eosinophils # (Auto) 0.1, Basophils # (Auto) 0.0, Nucleated Red Blood Cells % (auto) 0.1H, Prothrombin Time 28.9H, Prothromb Time International Ratio 2.66, Anion Gap 8, Glomerular Filtration Rate 19.9L, Blood Urea Nitrogen 54H, Creatinine 3.31H, Sodium Level 141, Potassium Level 3.9, Chloride Level 108H, Carbon Dioxide Level 25, Calcium Level 7.6L CBC/BMP Laboratory Tests 03/30/18 05:33 Red Blood Count 3.14 L, Mean Corpuscular Volume 94.9, Mean Corpuscular Hemoglobin 30.3, Mean Corpuscular Hemoglobin Concent 31.9 L, Red Cell Dist ribution Width 13.2, Neutrophils (%) (Auto) 80.2 H, Lymphocytes (%) (Auto) 9.3 L, Monocytes (%) (Auto) 5.7 H, Eosinophils (%) (Auto) 0.6, Basophils (%) (Auto) 0.2, Neutrophils # (Auto) 12.7 H, Lymphocytes # (Auto) 1.5, Monocytes # (Auto) 0.9 H, Eosinophils # (Auto) 0.1, Basophils # (Auto) 0.0, Calcium Level 7.6 L TRELL ESPINOSA MD Mar 30, 2018 06:49
[2018-03-30] MEDS ORDERED: NICO21PAT TD (06:55)
[2018-03-30] MEDS ORDERED: HYDR5TAB PO (06:55)
[2018-03-30] MEDS ORDERED: NYAM10003 TOP (06:55)
[2018-03-30] MEDS ORDERED: INSUDET SC (06:55)
[2018-03-30] MEDS ORDERED: COUM7.5T PO (06:55)
[2018-03-30] MEDS ORDERED: OCEA0.654 (06:55)
[2018-03-30] MEDS ORDERED: **hydrALAZINE** 10 MG TAB PO ONE (07:00)
[2018-03-30] MEDS ORDERED: amLODIPine 10 MG TAB PO ONE (07:00)
[2018-03-30] MEDS: HALOPERIDOL 5 MG TAB PO SCH (07:33)
[2018-03-30] MEDS: SENOKOT S TAB PO SCH ×2 (07:33→22:35)
[2018-03-30] MEDS: ZIPRASIDONE 80 MG CAP (GEODON) PO SCH ×2 (07:33→22:35)
[2018-03-30] MEDS: GABAPENTIN 100 MG CAP PO SCH ×3 (07:33→22:34)
[2018-03-30] MEDS: ATENOLOL 50 MG TAB PO SCH (07:34)
[2018-03-30] MEDS: ASPIRIN 81 MG ENTERIC TAB PO SCH (07:35)
[2018-03-30] MEDS: NICOTINE 21MG/24HR 1 EA TRANSDERMAL TD SCH (07:36)
[2018-03-30] MEDS: NYSTATIN 100,000 UNITS/GM TOPICAL PWD 15 GM TOP SCH ×2 (07:37→22:35)
[2018-03-30] MEDS: HumaLOG INSULIN (NovoLOG) PER UNIT SC SCH ×4 (07:37→21:00)
[2018-03-30] MEDS: LEVEMIR (INSULIN DETEMIR) 1 UNITS/0.01ML SC SCH ×2 (07:38→22:36)
[2018-03-30] MEDS ORDERED: amLODIPine 10 MG TAB PO SCH (09:00)
[2018-03-30] MEDS: **hydrALAZINE** 10 MG TAB PO SCH ×2 (09:18→16:58)
--- NOTE | 2018-03-30 12:00 | IPN ---
DATE: 03/30/2018 Mr. Cisneros is seen this morning on his bedside. He is feeling well and is anticipating going home tomorrow. He denies any nausea or vomiting. He is still on 2 liters oxygen. There is no fever or chills. His leukocytosis persists; however, there is no obvious sign of infection and cultures have been negative. He denies any abdominal pain and chest x-ray was unremarkable just a couple of days ago. On physical examination, temperature 97.2 degrees Fahrenheit, heart rate 62 per minute and respiratory rate 20 per minute. Blood pressure 182/70 mmHg and oxygen saturation 97% on 2 liters oxygen. Head is atraumatic. Neck is supple and jugular venous distention (JVD) is not obviously visible. There is no oral thrush or ulcers. His heart sounds are regular and lungs sound clear to auscultation. Abdomen is obese, soft and nontender and bowel sounds are present. Extremities have no cyanosis or clubbing. Neurologically, he is awake, alert and at his baseline mentation. Today's labs show WBC count 15.9, hemoglobin 9.5 and hematocrit 29.8. Platelets are 160. Sodium 141, potassium 3.9, CO2 25, BUN 54 and creatinine 3.31. PROBLEMS: 1. End-stage renal disease. The patient is now dialysis dependent and will be dialyzed again this afternoon. He has been tolerating dialysis treatments very well. He will need an AV fistula at a later time as currently we are using a Perma-Cath. We will get ultrasound of his arms prior to discharge. 2. Hypertension. His blood pressure is high today and I will not increase his antihypertensive meds at this point as he is going to have dialysis this afternoon and will consider increasing his amlodipine dose to 10 mg daily if his blood pressure is not improved with dialysis and fluid removal. 3. Congestive heart failure and hypoxemia. He is still on 2 liters oxygen, however, his volume status has improved significantly. We will remove about 2 liters of fluid with dialysis today. 4. Anemia. Anemia is stable and he remains on Aranesp 100 mcg once a week. 5. Disposition. The patient is hoping to be discharged tomorrow.
[2018-03-30] MEDS ORDERED: HEPARIN 1,000 UNITS/ML 10ML VIAL (FOR RADIOLOGY& DIALYSIS ONLY) XX ONE (12:30)
[2018-03-30] MEDS ORDERED: HEPARIN 1,000 UNITS/ML 10ML VIAL (FOR RADIOLOGY& DIALYSIS ONLY) IV ONE (12:30)
[2018-03-30 16:00] VITALS: BP 176/82
[2018-03-30] MEDS: WARFARIN SOD 7.5 MG TAB PO SCH (16:58)
--- NOTE | 2018-03-30 19:44 | REP ---
BILATERAL UPPER EXTREMITY DUPLEX DOPPLER VENOUS ULTRASOUND WITH DUPLEX DOPPLER ARTERIAL AND VENOUS EVALUATION FOR MAPPING FOR AV FISTULA: Real time compression and duplex Doppler interrogation of the bilateral upper extremity deep venous systems is performed. No deep vein thrombosis is seen bilaterally, with the jugular, subclavian, axillary and brachial veins patent and compressible and containing no intraluminal thrombus. However there is thrombus in the peripheral right cephalic vein. Evaluation of the right upper extremity arterial and venous systems is performed. Right basilic veins measures 7 mm at the upper humerus, 5 mm at the mid-humerus, 4 mm in the antecubital region, 6 mm in the upper forearm, 4 mm in the midforearm and 2 mm at the wrist. Median cubital vein measures 5 mm. Right cephalic vein measures 4 mm at the level of the humerus and is not visualized more peripherally with thrombus seen in the antecubital region of the cephalic vein. The right upper extremity arterial system demonstrates diffuse triphasic wave forms and normal flow velocities. Right axillary artery measures 8 mm, brachial artery 5 mm, radial artery 3 mm and ulnar artery 4 mm. The right radial and ulnar arteries demonstrate moderate plaquing at the wrist. On the left the basilic vein measures 4 mm at the upper humerus, 3 mm in the mid-humerus and antecubital region, 4 mm at the level of the forearm and 2 mm at the wrist. The cephalic veins measures 3 mm at the upper humerus, 2 mm at the mid-humerus and antecubital region and 1 mm in the forearm. It is not visualized at the wrist. Left median cubital vein measures 4 mm. Left upper extremity arterial system demonstrates normal flow velocities with biphasic and triphasic wave forms. The left axillary artery measures 7 mm, brachial artery 6 mm, radial artery 3 mm and ulnar artery 4 mm. Electronically Signed by Prabhu Aguilar MD 03/30/2018 08:29 P
[2018-03-30] MEDS ORDERED: HYDR-3910 PO (20:49)
[2018-03-30 22:00] VITALS: BP 164/78
[2018-03-30] MEDS: ACETAMINOPHEN TAB 650MG DOSE (2X325MG) PO PRN (22:35)
[2018-03-31] MEDS: **hydrALAZINE HCL** 25 MG TAB PO SCH ×2 (00:39→05:28)
[2018-03-31 02:00] VITALS: BP 158/72
[2018-03-31] MEDS: SLF 3 ML SYR IV SCH (05:29)
[2018-03-31 06:00] VITALS: BP 168/79
[2018-03-31 06:21] LABS: BASO % 0.2 % (0.0-1.0); EOS # 0.4 10^3/uL (0.0-0.50); EOS % 2.5 % (0.0-3.0); HEMATOCRIT 31.7 % (42.0-52.0); HEMOGLOBIN 10.3 g/dl (13.5-17.5); LYMPH # 3.2 10^3/uL (1.5-4.5); LYMPH % 20.1 % (24.0-44.0); MEAN CORPUSCULAR HEMOGLOBIN 30.5 pg (27.0-33.0); MEAN CORPUSCULAR HGB CONC 32.5 g/dl (32.0-36.5); MEAN CORPUSCULAR VOLUME 93.8 fl (80.0-96.0); MONO # 1.4 10^3/uL (0.0-0.8); MONO % 8.7 % (0.0-5.0); NEUTROPHILS # 10.5 10^3/uL (1.8-7.7); NEUTROPHILS % 65.8 % (36.0-66.0); PLATELET COUNT, AUTOMATED 178 10^3/uL (150-450); RED BLOOD COUNT 3.38 10^6/uL (4.30-6.10); WHITE BLOOD COUNT 15.9 10^3/uL (4.0-10.0)
[2018-03-31 06:45] LABS: INR 2.82; PROTHROMBIN TIME 30.2 SECONDS (12.1-14.4)
[2018-03-31 06:49] LABS: CALCIUM LEVEL 7.7 MG/DL (8.8-10.2); CREATININE FOR GFR 2.52 MG/DL (0.70-1.30); GLOMERULAR FILTRATION RATE 27.3 (>49)
[2018-03-31] MEDS: IPRATROPIUM 0.5MG/ALBUTEROL 2.5MG INH SOL UD 3ML (DUONEB)(J7620) NEB SCH (07:08)
[2018-03-31] MEDS: HumaLOG INSULIN (NovoLOG) PER UNIT SC SCH (07:30)
[2018-03-31] MEDS: NICOTINE 21MG/24HR 1 EA TRANSDERMAL TD SCH (09:00)
[2018-03-31] MEDS: GABAPENTIN 100 MG CAP PO SCH (09:43)
[2018-03-31] MEDS: HALOPERIDOL 5 MG TAB PO SCH (09:43)
[2018-03-31] MEDS: SENOKOT S TAB PO SCH (09:43)
[2018-03-31] MEDS: ZIPRASIDONE 80 MG CAP (GEODON) PO SCH (09:43)
[2018-03-31] MEDS: ASPIRIN 81 MG ENTERIC TAB PO SCH (09:43)
[2018-03-31 09:47] VITALS: BP 179/55
[2018-03-31] MEDS: ATENOLOL 50 MG TAB PO SCH (09:47)
[2018-03-31] MEDS: NYSTATIN 100,000 UNITS/GM TOPICAL PWD 15 GM TOP SCH (09:48)
[2018-03-31 10:00] VITALS: BP 187/77
--- NOTE | 2018-03-31 12:46 | DS.PDOC ---
Discharge Summary General Date of Admission Mar 18, 2018 at 05:29 Date of Discharge 03/31/18 Discharge Summary CONSULTANTS: OCCUPATIONAL THERAPY SPECIALIST, DR. LUJAN DISCHARGE DIAGNOSES: Acute hypoxic respiratory failure due to CHF exacerbation, RSV infection AND proteus in sputum s/p iv abx COPD with pulmonary hypertension Diastolic CHF exacerbation Uncontrolled diabetes mellitus ESRD -Was ckd V during admission Initiated HD this admission History of peripheral artery disease History of left common iliac artery aneurysm for which patient had refused repair and surgery in the past. History of CAD status post PCI Hypertension History of morbid obesity History of diabetic neuropathy History of schizoaffective disorder. History of left lower extremity DVT on Coumadin. DISCHARGE MEDICATIONS: pls see below HISTORY OF PRESENTING ILLNESS: 67-year-old male with significant past medical history of CKD stage III, right sided AKA, diastolic heart failure, and COPD presenting with a week long history of progressively worsening weakness and shortness of breath. He admits to a cough productive of clear, thick sputum that he has chronically and denies any fevers, chills, rhinorrhea, or nasal congestion. Does admit to sick contacts in the past 2 weeks who have had common cold-like symptoms. He lives at home alone and says he hasn't been able to find his medications for the last week so he hasn't taken any of them for at least a week. He also states it is difficult for him to see the bottles because of his cataracts. HOSPITAL COURSE: Acute hypoxic respiratory failure due to CHF exacerbation due to RSV infection AND proteus in sputum s/p iv abx x 7 days continues to require 4 liter oxygen . Does not use oxygen at home. continue oxygen supplementation Not responding well to diuretics with progressive CKD. . Now in stage V. received HD x3 sessions as inpt which will take care of the fluid issues. COPD with pulmonary hypertension secondary to RSV. s/p prednisone. respiratory issues thought to be secondary to fluid overload rather than an acute copd exacerbation. PRN nebs. Diastolic CHF exacerbation seems to be appearing to euvolemia. creatinine on the rise. He probably has significant CKD stage 4 to 5 and his creatinine before was underestimated due to fluid overload. fluid management as per Nephrology. s/p HD x 3 sessions. outpt HD arranged. ready to dc home. Uncontrolled diabetes mellitus- blood sugars elevated likely secondary to RSV as well as steroids. Increased Levemir dose. Sliding scale insulin. ESRD Was ckd V during admission with worsening with diuretics Initiated HD this admission and now is ESRD with outpt HD approved. History of peripheral artery disease will need outpatient follow-up History of left common iliac artery aneurysm for which patient had refused r epair and surgery in the past. History of CAD status post PCI- continue home meds. Hypertension controlled continue current meds. History of morbid obesity complicated care. History of diabetic neuropathy History of schizoaffective disorder. Continue meds. History of left lower extremity DVT on Coumadin. will continue to monitor INR and adjust coumadin dosage as needed. currently therapeutic at current dose DVT prophy: On Coumadin. disposition: dc on 03/31/18 DISCHARGE PHYSICAL EXAMINATION: Vitals: (see below) General: No acute distress, sitting up in chair. HEENT: Moist mucous membranes. Neck: No JVD or lymphadenopathy Cardiac: RRR, No murmurs. Pulm: Diminished breath sounds b/l. Minimal wheezing with ronchi. Basal coarse breath sounds. Abd: NT/ND + BS Ext: 1+ pitting edema left lower extremity right lower extremity. Right above- knee amputation. No cyanosis. chronic stasis changes on the left leg. LABORATORY DATA, IMAGING STUDIES, MICROBIOLOGY: PLS SEE BELOW Acute renal failure. Technique: Real time aguilar scale ultrasound evaluation using curved array transducer. Findings: The kidneys are normal in size and reniform shape demonstrating mildly increased parenchymal echogenicity but no evidence for hydronephrosis, nephrolithiasis or renal mass lesion. Scattered renovascular calcifications are suggested bilaterally. Right kidney measures 11.8 x 4.6 x 4.6 cm with 8-0.4 x 2.4 x 1.8 cm mid pole cortical cyst. Left kidney measures 10.8 x 4.3 x 5.2 cm with 8-0.1 x 2.6 x 2.4 cm simple upper pole cyst. Bladder is collapsed. Impression: Findings consistent with age-related chronic renal disease. No hydronephrosis. Bilateral solitary cysts. Electronically Signed by Fredy Unger MD 03/18/2018 07:59 A EXAM: CT Chest Without Contrast EXAM DATE/TIME: 03/18/2018 5:29 AM CLINICAL HISTORY: 67 years old, male; Signs and symptoms; Dyspnea and shortness of breath TECHNIQUE: Axial computed tomography images of the chest without intravenous contrast. All CT scans at this facility use at least one of these dose optimization techniques: automated exposure control; mA and/or kV adjustment per patient size (includes targeted exams where dose is matched to clinical indication); or iterative reconstruction. Coronal and sagittal reformatted images were created and reviewed. MIP reconstructed images were created and reviewed. COMPARISON: CT Chest without contrast 09/21/2017 10:16 AM FINDINGS: Lungs: More focal area of scarring superior right lower lobe posteriorly measures 1.6 CM by 1.3 CM. Pleural space: Minor areas of pleural-parenchymal scarring bilaterally. Heart: Left ventricular prominent size. Mediastinum: Accentuation or thickening of the upper mediastinal esophagus. Aorta: Normal. No aortic aneurysm. Lymph nodes: Mediastinal lymphadenopathy with subcarinal lymph node measuring 2.7 CM. Bones/joints: Degenerative change of the spine. Degenerative change of the spine. Soft tissues: Unremarkable. Gallbladder and bile ducts: Calcified thoracic aorta with calcific and she and distribution of coronary arteries. Cholelithiasis. Kidneys and ureters: Likely right renal vascular calcification. IMPRESSION: 1. Areas of pleuroparenchymal scarring bilaterally. 2. Mediastinal adenopathy could be reactive. 3. Accentuation of the wall of the upper mediastinal esophagus. 4. Cholelithiasis. Electronically signed by: Cherelle Lobo On 03/18/2018 09:33:55 AM DD: CHERELLE LOBO DO 03/18/18 0529 DT: JAMES 03/18/18 0933 DS: NOREEN 03/18/1833 Ventilation-perfusion lung scan: History: Dyspnea. Comparison chest x-ray: March 21, 2018. Technique: 1.0 mCi technetium 99m DTPA aerosol is given for the ventilation study and is followed by a 5.3 mCi technetium 99 MAA dose intravenously for the perfusion exam. Eight planar images are acquired for each portion of the study. Scintigraphic findings: There is some central bronchial perihilar inspired tracer deposition bilaterally consistent with some degree of COPD. The perfusion study shows more homogeneous of bilateral pulmonary parenchymal distribution. There are small matched perfusion defects bilaterally. There is no visible mismatched defect. Impression: Low probability scan for pulmonary embolus. Electronically Signed by Sanjay Da Silva MD 03/22/2018 06:50 P BILATERAL UPPER EXTREMITY DUPLEX DOPPLER VENOUS ULTRASOUND WITH DUPLEX DOPPLER ARTERIAL AND VENOUS EVALUATION FOR MAPPING FOR AV FISTULA: Real time compression and duplex Doppler interrogation of the bilateral upper extremity deep venous systems is performed. No deep vein thrombosis is seen bilaterally, with the jugular, subclavian, axillary and brachial veins patent and compressible and containing no intraluminal thrombus. However there is thrombus in the peripheral right cephalic vein. Evaluation of the right upper extremity arterial and venous systems is performed. Right basilic veins measures 7 mm at the upper humerus, 5 mm at the mid-humerus, 4 mm in the antecubital region, 6 mm in the upper forearm, 4 mm in the midforearm and 2 mm at the wrist. Median cubital vein measures 5 mm. Right cephalic vein measures 4 mm at the level of the humerus and is not visualized more peripherally with thrombus seen in the antecubital region of the cephalic vein. The right upper extremity arterial system demonstrates diffuse triphasic wave forms and normal flow velocities. Right axillary artery measures 8 mm, brachial artery 5 mm, radial artery 3 mm and ulnar artery 4 mm. The right radial and ulnar arteries demonstrate moderate plaquing at the wrist. On the left the basilic vein measures 4 mm at the upper humerus, 3 mm in the mid-humerus and antecubital region, 4 mm at the level of the forearm and 2 mm at the wrist. The cephalic veins measures 3 mm at the upper humerus, 2 mm at the mid-humerus and antecubital region and 1 mm in the forearm. It is not visualized at the wrist. Left median cubital vein measures 4 mm. Left upper extremity arterial system demonstrates normal flow velocities with biphasic and triphasic wave forms. The left axillary artery measures 7 mm, brachial artery 6 mm, radial artery 3 mm and ulnar artery 4 mm. Electronically Signed by Prabhu Aguilar MD 03/30/2018 08:29 P TIME SPENT ON DISCHAR MINUTES Vital Signs/I&Os Vital Signs Date Time Temp Pulse Resp B/P (MAP) Pulse Ox O2 Delivery O2 Flow Rate FiO2 03/31/18 10:00 96.5 59 18 187/77 (113) 96 Room Air 03/30/18 22:00 2.0 I&O- Last 24 Hours up to 6 AM 03/31/18 06:00 Intake Total 1190 ml Output Total 3150 ml Balance -1960 ml Laboratory Data Labs 24H Laboratory Tests 2 03/30/18 12:59: Bedside Glucose (Misc Panel) 86 03/30/18 16:44: Bedside Glucose (Misc Panel) 182H 03/30/18 21:24: Bedside Glucose (Misc Panel) 210H 03/31/18 05:49: Bedside Glucose (Misc Panel) 59L 03/31/18 05:53: Immature Granulocyte % (Auto) 2.7, White Blood Count 15.9H, Red Blood Count 3.38L, Hemoglobin 10.3L, Hematocrit 31.7L, Mean Corpuscular Volume 93.8, Mean Corpuscular Hemoglobin 30.5, Mean Corpuscular Hemoglobin Concent 32.5, Red Cell Distribution Width 13.5, Platelet Count 178, Neutrophils (%) (Auto) 65.8, Lymphocytes (%) (Auto) 20.1L, Monocytes (%) (Auto) 8.7H, Eosinophils (%) (Auto) 2.5, Basophils (%) (Auto) 0.2, Neutrophils # (Auto) 10.5H, Lymphocytes # (Auto) 3.2, Monocytes # (Auto) 1.4H, Eosinophils # (Auto) 0.4, Basophils # (Auto) 0.0, Nucleated Red Blood Cells % (auto) 0.3H, Prothrombin Time 30.2H, Prothromb Time International Ratio 2.82, Anion Gap 6L, Glomerular Filtration Rate 27.3L, Blood Urea Nitrogen 28H, Creatinine 2.52H, Sodium Level 140, Potassium Level 4.0, Chloride Level 106, Carbon Dioxide Level 28, Calcium Level 7.7L 03/31/18 06:32: Bedside Glucose (Misc Panel) 80 CBC/BMP Laboratory Tests 03/31/18 05:53 Red Blood Count 3.38 L, Mean Corpuscular Volume 93.8, Mean Corpuscular Hemoglobin 30.5, Mean Corpuscular Hemoglobin Concent 32.5, Red Cell Distribution Width 13.5, Neutrophils (%) (Auto) 65.8, Lymphocytes (%) (Auto) 20.1 L, Monocytes (%) (Auto) 8.7 H, Eosinophils (%) (Auto) 2.5, Basophils (%) (Auto) 0.2, Neutrophils # (Auto) 10.5 H, Lymphocytes # (Auto) 3.2, Monocytes # (Auto) 1.4 H, Eosinophils # (Auto) 0.4, Basophils # (Auto) 0.0, Calcium Level 7.7 L FSBS Laboratory Tests Test 03/30/18 12:59 03/30/18 16:44 03/30/18 21:24 03/31/18 05:49 Range/Units Bedside Glucose (Misc Panel) 86 182 210 59 80-115 MG/DL Test 03/31/18 06:32 Range/Units Bedside Glucose (Misc Panel) 80 80-115 MG/DL Discharge Medications Scheduled Amlodipine Besylate (Amlodipine Besylate) 10 Mg Tab, 10 MG PO DAILY, (Reported) Aspirin (Aspirin) 81 Mg Tab, 81 MG PO DAILY, (Reported) Atenolol (Atenolol) 50 Mg Tab, 50 MG PO DAILY, (Reported) Gabapentin (Gabapentin) 100 Mg Cap, 100 MG PO TID, (Reported) Haloperidol (Haloperidol) 5 Mg Tab, 5 MG PO DAILY, (Reported) Hydralazine HCl (Hydralazine HCl) 25 Mg Tab, 25 MG PO TID Insulin Aspart (Novolog) 100 U/Ml Inj, 10 UNITS SC BID, (Reported) Insulin Aspart (Novolog) 100 U/Ml Inj, 5 UNITS SC QHS, (Reported) Insulin Detemir (Levemir) 1 Units/0.01 Ml Susp, 85 UNITS SC BID Nicotine (Nicotine Transdermal Syst) 21 Mg/24 Hr Dis, 1 PATCH TD DAILY Nystatin (Nyamyc) 100,000 Unit/Gm Pow, 0 DOSE TOP BID Warfarin Sod (Coumadin) 7.5 Mg Tab, 7.5 MG PO DAILY@17 Ziprasidone Hydrochloride (Ziprasidone HCl) 80 Mg Cap, 80 MG PO BID, (Reported) Scheduled PRN Nitroglycerin (Nitrostat) 0.4 Mg Subl, 0.4 MG SL NITRO PRN for CHEST PAIN, (Re ported) Sodium Chloride ([place] Nasal [place]) 0.65 % Spr, 2 SPRAY NA Q2HP PRN for NASAL DRYNESS Allergies Coded Allergies: Bupivacaine (Verified Adverse Reaction, Severe, INDUCES BRUGADA SYNDROME, 10/18/17) TRELL ESPINOSA MD Mar 31, 2018 12:35
--- NOTE | 2018-03-31 13:38 | IPN ---
DATE: 03/31/2018 SUBJECTIVE: The patient was seen and examined at the bedside today morning. The patient feels much better. He is afebrile, hemodynamically stable. He was dialyzed yesterday and he tolerated 2 liters of ultrafiltration. He reports that he is getting ready to be discharged today. OBJECTIVE: VITAL SIGNS: Temperature is 96.5 degrees Fahrenheit, blood pressure 187/77, pulse 59, respiratory rate of 18, saturating 96% on room air. Intake and output: Urine output was 1.9 liters yesterday, 2 liters of ultrafiltration was done yesterday. Weight on the bed scale is 115 kg. PHYSICAL EXAMINATION: GENERAL: The patient is awake, alert, oriented times three. Sitting up in the bed. No apparent distress. HEAD AND NECK EXAM: Extraocular muscles are intact. Pupils are equal, round and reactive to light. Mucous membranes are moist. Neck is supple. There is no jugular venous distention (JVD). He has a right IJ tunneled hemodialysis catheter. CARDIOVASCULAR: S1, S2. Regular rate. Trace edema of the lower extremities. RESPIRATORY: Chest is clear to auscultation bilaterally. Bilateral equal air entry. No rales or rhonchi. ABDOMEN: Soft. Positive bowel sounds. Morbidly obese. No organomegaly. MUSCULOSKELETAL: The patient is status post right above knee amputation and left transmetatarsal amputation. CENTRAL NERVOUS SYSTEM (HOME HEALTH SCHEDULER): No focal deficits. Power is 5/5 in bilateral upper extremities. LABORATORY REVIEW: CBC showed a WBC of 15.9, hemoglobin 10.3, platelets are 178. BMP showed sodium 140, potassium 4.4, chloride 106, bicarbonate 28, BUN 28, creatinine 2.5. CURRENT INPATIENT MEDICATIONS: The patient's medications were all reviewed by me. No change in the medications today as compared with yesterday. ASSESSMENT AND PLAN: 1. End stage renal disease. The patient is hemodialysis dependent. He was dialyzed yesterday. His next hemodialysis sessions will be as outpatient tomorrow morning. 2. Renal vascular hypertension. Blood pressure is still elevated. His volume status is being optimized. Continue the current antihypertensive regimen. The rest of the hypertensive medications will be adjusted at dialysis center after his volume status improves with further hemodialysis. 3. Anemia in end stage renal disease. Hemoglobin is 10.3, which is optimal now. Rest of the anemia management will be done as an outpatient. 4. Chronic diastolic congestive heart failure (CHF). Volume status is improving now. His urine output is also getting better. His dry weight will be adjusted at outpatient dialysis center. DISPOSITION: It is okay to discharge the patient from nephrology standpoint. He will be evaluated next week during hemodialysis.
--- NOTE | 2018-04-12 08:04 | REPIR ---
DATE OF PROCEDURE: 03/23/2018 PREPROCEDURE DIAGNOSIS: Chronic renal insufficiency approaching end stage renal disease requiring renal replacement therapy. POSTPROCEDURE DIAGNOSIS: Chronic renal insufficiency approaching end stage renal disease requiring renal replacement therapy. PROCEDURE: Ultrasound guided right internal jugular vein cannulation, fluoroscopic guided right internal jugular vein 19 cm tip to cuff tunneled central venous catheter with an AngioDynamic EvenMore PermCath. SURGEON: Dr. Maryana Jeffers TROLLEY CAR OPERATOR: Cari Dunbar and Julio C Wallace. INDICATIONS: The patient is a 67-year-old male with chronic renal insufficiency who has now reached end-stage renal disease and requires renal replacement therapy. The patient requires access for renal replacement therapy and will undergo a tunneled central venous catheter for hemodialysis access. The procedure was explained and described to the patient in detail including drawing of pictures demonstrated the procedure and anatomy. Risks, benefits and alternative treatment options were discussed with the patient. Alternative options included but were not limited to no intervention. Benefits included but were not limited to access for hemodialysis secondary to renal failure. Risks included but were not limited to infection, bleeding, pneumothorax, hemothorax, possible need for open surgical intervention, cerebrovascular accident, myocardial infarction, pulmonary embolus, deep venous thrombosis (DVT), loss of limb, loss of life, poor outcome and poor results. The patient voices understanding and acceptance of these risks, benefits and alternative treatment options of consents to proceed with a right internal jugular vein tunneled central venous catheter placement for hemodialysis access. ANESTHESIA: Local with 20 mL of 2% lidocaine. FLUORO TIME: 0.1 minutes. CONTRAST: None. COMPLICATIONS: None. DRAINS: None. SPECIMENS: None. IMPLANTS: Right internal jugular vein 19 cm tip to cuff tunneled central venous catheter with use of an AngioDynamic EvenMore catheter. PROCEDURE: The patient was taken to the angiography suite, placed on the angiography room table and prepped and draped in a standard surgical fashion. The right internal jugular vein was cannulated with a micropuncture needle after anesthetizing the overlying skin using ultrasound guidance with real-time concurrent visualization of the entry of the needle into the right internal jugular vein with a hard copy image preserved. The right internal jugular vein was easily compressible, widely patent and free of thrombus. The micropuncture wire was advanced through the micropuncture needle which was upsized to a micropuncture sheath. An Amplatz wire was advanced through the micropuncture sheath which was upsized to an introducer sheath after sequentially dilating the right internal jugular vein using fluoroscopic guidance. The introducer sheath was placed under fluoroscopic guidance. The catheter was tunneled through a puncture wound in the right chest and brought out through a puncture wound at the right internal jugular vein entry site. The catheter was advanced through the introducer sheath, positioned with the tip in the superior vena cava right atrial junction and the introducer sheath was peeled away and removed. The ports of the catheter were aspirated and noted to aspirate easily and then flushed with heparinized saline. The puncture wound in the right neck was closed using a #3-0 Vicryl suture in inverted interrupted fashion. The catheter was secured to the right anterior chest wall using #2-0 Prolene suture after anesthetizing the overlying skin with 2% lidocaine. Dressings were applied. The patient tolerated the procedure well. All instrument, sponge, and needle counts were correct at the end of the case. There were no complications. Dr. Jeffers was present for and directed the entire case. The patient was transferred to the holding and subsequently to hemodialysis in stable condition. The procedure results and description were discussed with the patient in the holding area and all of his questions were answered. The tunneled central venous catheter is stable for use for hemodialysis access. RADIOLOGY SUPERVISION INTERPRETATION: The ultrasound showed the right internal jugular vein to be easily compressible, widely patent, free of thrombus. Ultrasound was used to guide cannulation with real-time concurrent visualization of the entry of the micropuncture needle into the right internal jugular vein with a hard copy image preserved. The right internal jugular vein was sequentially dilated under fluoroscopic guidance. Final fluoroscopic image showed the catheter to be in good position and good alignment with the tip in the superior vena cava right atrial junction with no pneumo- or hemothorax noted. The right internal jugular vein tunneled central venous catheter is stable for use for hemodialysis access.
== END 2018-03-31 11:40 | disposition home health service (06) | DRG 673 ==
LOC: EDBD 02:21 → M ED 02:21 → EEVIPCON 05:29 → M ED INP 05:29 → M PCU 06:54 → M MS4PR 03-19 20:54 → M MS5PR 03-24 17:20
PROVIDERS: ADMIT Internal Medicine; ATTEND General Practice
PROC: 0JH63XZ Insertion of Tunneled Vascular Access Device into Chest Subcutaneous Tissue and Fascia, Percutaneous Approach (ICD-10-PCS; principal; 2018-03-23)
PROC: 02HV33Z Insertion of Infusion Device into Superior Vena Cava, Percutaneous Approach (ICD-10-PCS; 2018-03-23)
PROC: 5A1D70Z Performance of Urinary Filtration, Intermittent, Less than 6 Hours Per Day (ICD-10-PCS; 2018-03-24)
DX: N17.9 Acute kidney failure, unspecified (principal); I50.33 Acute on chronic diastolic (congestive) heart failure; J96.01 Acute respiratory failure with hypoxia; J44.1 Chronic obstructive pulmonary disease with (acute) exacerbation; I13.2 Hypertensive heart and chronic kidney disease with heart failure and with stage 5 chronic kidney disease, or end stage renal disease; N18.6 End stage renal disease; E11.51 Type 2 diabetes mellitus with diabetic peripheral angiopathy without gangrene; F25.9 Schizoaffective disorder, unspecified; B97.4 Respiratory syncytial virus as the cause of diseases classified elsewhere; I25.10 Atherosclerotic heart disease of native coronary artery without angina pectoris; I72.3 Aneurysm of iliac artery; E11.22 Type 2 diabetes mellitus with diabetic chronic kidney disease; E66.9 Obesity, unspecified; E11.65 Type 2 diabetes mellitus with hyperglycemia; N28.1 Cyst of kidney, acquired; E11.40 Type 2 diabetes mellitus with diabetic neuropathy, unspecified; Z89.611 Acquired absence of right leg above knee; Z95.5 Presence of coronary angioplasty implant and graft; Z87.891 Personal history of nicotine dependence; Z91.14 Patient's other noncompliance with medication regimen; Z79.82 Long term (current) use of aspirin; Z79.4 Long term (current) use of insulin; Z79.899 Other long term (current) drug therapy; Z88.4 Allergy status to anesthetic agent; Z86.718 Personal history of other venous thrombosis and embolism; Z79.01 Long term (current) use of anticoagulants; Z99.2 Dependence on renal dialysis; Z68.33 Body mass index [BMI] 33.0-33.9, adult

== ENCOUNTER → 2018-04-10 | Outpatient (REF) | payer MEDICARE, MEDICAID ==
[~2018-04-10] MED LIST changes: +AMLO10TA5 PO; +HYDR-3910 PO; +HYDR5TAB PO; +NICO21PAT TD; +OCEA0.654; +WARF-23 PO
[2018-04-10 17:39] LABS: INR 1.69; PROTHROMBIN TIME 20.2 SECONDS (12.1-14.4)
== END ==
LOC: M SHH 16:42 → M LAB REF 16:42
PROVIDERS: ATTEND Internal Medicine
DX: I82.220 Acute embolism and thrombosis of inferior vena cava (principal); Z79.01 Long term (current) use of anticoagulants

== ENCOUNTER → 2018-04-17 | Outpatient (REF) | payer MEDICARE, MEDICAID ==
[2018-04-17 19:33] LABS: INR 1.95; PROTHROMBIN TIME 22.6 SECONDS (12.1-14.4)
== END ==
LOC: M LAB REF 16:48
PROVIDERS: ATTEND Internal Medicine
DX: Z79.01 Long term (current) use of anticoagulants (principal); I82.220 Acute embolism and thrombosis of inferior vena cava

== ENCOUNTER → 2018-05-24 | Outpatient (CLI) | payer MEDICARE, MEDICAID | LOC: M RAD 12:51 | PROVIDERS: ATTEND Surgery Vascular Surgery | DX: N18.6 End stage renal disease (principal); Z53.9 Procedure and treatment not carried out, unspecified reason ==

== ENCOUNTER 2018-06-28 03:11 | Emergency (ER) | payer MEDICARE, MEDICAID ==
[~2018-06-28] VITALS: Ht 165.1 cm; Wt 102.3 kg
[~2018-06-28 03:11] MED LIST changes: +APAP325T4 PO; +CALC1CAP PO; +CLOT1CRE27 TOP; -CLOTR1CR TOP; -EUCE12CR TOP; +HYDR1CRE95 TOP; +NYST-15 TOP; -NYST10PW TOP; -SENN1TAB2 PO; +SENN1TAB40 PO; +SENN1TAB41 PO; -SENN8.6T7 PO; +VITA500T PO
[2018-06-28 04:15] LABS: BASO # 0.1 10^3/uL (0.0-0.2); BASO % 0.7 % (0.0-1.0); EOS # 0.1 10^3/uL (0.0-0.50); EOS % 1.1 % (0.0-3.0); HEMOGLOBIN 11.4 g/dl (13.5-17.5); LYMPH # 0.7 10^3/uL (1.5-4.5); LYMPH % 6.9 % (24.0-44.0); MEAN CORPUSCULAR HGB CONC 32.6 g/dl (32.0-36.5); MEAN CORPUSCULAR VOLUME 98.3 fl (80.0-96.0); MONO # 1.3 10^3/uL (0.0-0.8); MONO % 12.2 % (0.0-5.0); NEUTROPHILS % 77.9 % (36.0-66.0); PLATELET COUNT, AUTOMATED 196 10^3/uL (150-450); RED BLOOD COUNT 3.56 10^6/uL (4.30-6.10); WHITE BLOOD COUNT 10.3 10^3/uL (4.0-10.0)
[2018-06-28] MEDS ORDERED: IPRATROPIUM 0.5MG/ALBUTEROL 2.5MG INH SOL UD 3ML (DUONEB)(J7620) NEB ONE ×2 (04:15→05:30)
[2018-06-28] MEDS ORDERED: ACETAMINOPHEN TAB 650MG DOSE (2X325MG) PO ONE (04:15)
[2018-06-28 04:25] LABS: INR 1.76; PROTHROMBIN TIME 20.8 SECONDS (12.1-14.4)
[2018-06-28 04:47] LABS: INFLUENZA A AMPLIFICATION NEGATIVE (NEGATIVE); INFLUENZA B AMPLIFICATION NEGATIVE (NEGATIVE)
[2018-06-28 04:52] LABS: ALBUMIN 2.7 GM/DL (3.2-5.2); ALT/SGPT 22 U/L (12-78); BILIRUBIN,DIRECT < 0.1 MG/DL (0.0-0.2); BILIRUBIN,TOTAL 0.3 MG/DL (0.2-1.0); BLOOD UREA NITROGEN 18 MG/DL (7-18); CARBON DIOXIDE LEVEL 28 MEQ/L (21-32); CHLORIDE LEVEL 104 MEQ/L (98-107); CPK CREATINE PHOSPHOKINASE 141 U/L (39-308); CREATININE FOR GFR 3.08 MG/DL (0.70-1.30); GLOMERULAR FILTRATION RATE 21.7 (>49); GLUCOSE, FASTING 194 MG/DL (70-100); MB/CK RELATIVE INDEX 1.77 (< OR =4); POTASSIUM SERUM 4.4 MEQ/L (3.5-5.1); SODIUM LEVEL 139 MEQ/L (136-145); THYROID STIMULATING HORMONE 0.998 uIU/ML (0.358-3.740); TOTAL PROTEIN 6.4 GM/DL (6.4-8.2); TROPONIN I 0.03 NG/ML (< 0.10)
[2018-06-28] MEDS ORDERED: methylPREDNISolone INJ 125 MG/2 ML VIAL (J2930) IV ONE (05:30)
--- NOTE | 2018-06-28 05:37 | REPVR ---
EXAM: XR Chest, 2 Views EXAM DATE/TIME: 06/28/2018 4:11 AM CLINICAL HISTORY: 67 years old, male; Signs and symptoms; Cough and dyspnea; Additional info: Dyspnea/cough TECHNIQUE: Imaging protocol: XR of the chest, 2 views. COMPARISON: CR Chest, 2 view PA, Lat 03/29/2018 8:06 AM FINDINGS: Tubes, catheters and devices: Right sided hemodialysis catheter seen with its tip in the distal SVC. Lungs: There is mild diffuse increase interstitial lung markings. The retrocardiac region is not clearly seen on the frontal view and a lateral view is limited due to motion. Pleural space: Unremarkable. No pleural effusion. No pneumothorax. Heart/Mediastinum: The heart is enlarged. Bones/joints: Unremarkable. IMPRESSION: 1. Cardiomegaly with mild increased interstitial lung markings possibly due to interstitial edema. 2. Limited evaluation of the retrocardiac region. Otherwise no focal consolidation seen. 3. Right sided HD catheter with its tip in the distal SVC. Electronically signed by: Srikanth Templeton On 06/28/2018 05:37:32 AM
[2018-06-28] MEDS ORDERED: FUROSEMIDE 40 MG/4 ML VIAL (J1940) IV ONE (05:45)
[2018-06-28] MEDS ORDERED: PRED20TA PO (06:32)
--- NOTE | 2018-06-28 06:45 | ED PDOC ---
Post-Departure Follow-Up dr felix faxed formal report of cxr for fu stacieg Willard Pace MD Jun 28, 2018 06:45
[2018-06-28 06:47] VITALS: BP 155/72
--- NOTE | 2018-06-28 08:33 | ECGEPIP ---
Stationary ECG Study [facility] - ED Test Date: 2018-06-28 Pat Name: MICHAEL ALVAREZ Department: Room: - Gender: M Engine Emission Technician: theresa : 1950 Requested By: SAMPSON Ordaz Order Number: [id number] Reading MD: Linette Gonzales Measurements Intervals [place] Rate: 75 P: 59 TN: 159 QRS: -13 QRSD: 110 T: 82 QT: 396 QTc: 443 Interpretive Statements SINUS RHYTHM NONSPECIFIC T-WAVE ABNORMALITY SIMILAR 03/18/18 Electronically Signed On 06-28-2018 8:33:46 EDT by Linette Gonzales
== END 2018-06-28 07:00 | disposition home or self-care (01) ==
LOC: M ED 03:11
DX: J06.9 Acute upper respiratory infection, unspecified (principal); I25.10 Atherosclerotic heart disease of native coronary artery without angina pectoris; I13.10 Hypertensive heart and chronic kidney disease without heart failure, with stage 1 through stage 4 chronic kidney disease, or unspecified chronic kidney disease; I73.9 Peripheral vascular disease, unspecified; N18.9 Chronic kidney disease, unspecified; J44.9 Chronic obstructive pulmonary disease, unspecified; E66.9 Obesity, unspecified; F25.9 Schizoaffective disorder, unspecified; Z88.8 Allergy status to other drugs, medicaments and biological substances; Z79.899 Other long term (current) drug therapy; Z79.82 Long term (current) use of aspirin; Z79.4 Long term (current) use of insulin; Z79.01 Long term (current) use of anticoagulants
CPT/HCPCS: 71046; 80048; 80076; 82550; 82553; 84443; 84484; 85025; 85610; 87502; 87880; 93005; 93041; 94640; 94760; 96374; 96375; 99285; J1940; J2930

== ENCOUNTER 2018-08-17 10:25 | Emergency (ER) | payer MEDICARE, MEDICAID ==
[~2018-08-17 10:25] MED LIST changes: +PRED20TA PO
[2018-08-17 11:39] LABS: BASO # 0.1 10^3/uL (0.0-0.2); BASO % 0.9 % (0.0-1.0); EOS # 0.4 10^3/uL (0.0-0.50); EOS % 4.6 % (0.0-3.0); HEMATOCRIT 30.3 % (42.0-52.0); HEMOGLOBIN 10.6 g/dl (13.5-17.5); LYMPH # 1.1 10^3/uL (1.5-4.5); LYMPH % 14.3 % (24.0-44.0); MEAN CORPUSCULAR HEMOGLOBIN 34.6 pg (27.0-33.0); MONO # 0.9 10^3/uL (0.0-0.8); MONO % 11.2 % (0.0-5.0); NEUTROPHILS # 5.4 10^3/uL (1.8-7.7); PLATELET COUNT, AUTOMATED 136 10^3/uL (150-450); RED BLOOD COUNT 3.06 10^6/uL (4.30-6.10)
[2018-08-17 12:12] LABS: ALBUMIN 2.6 GM/DL (3.2-5.2); ALT/SGPT 25 U/L (12-78); BILIRUBIN,DIRECT < 0.1 MG/DL (0.0-0.2); BILIRUBIN,TOTAL 0.3 MG/DL (0.2-1.0); BLOOD UREA NITROGEN 33 MG/DL (7-18); CALCIUM LEVEL 8.7 MG/DL (8.8-10.2); CARBON DIOXIDE LEVEL 24 MEQ/L (21-32); CHLORIDE LEVEL 104 MEQ/L (98-107); GLOMERULAR FILTRATION RATE 14.7 (>49); GLUCOSE, FASTING 255 MG/DL (70-100); LIPASE 225 U/L (73-393); POTASSIUM SERUM 4.1 MEQ/L (3.5-5.1); SODIUM LEVEL 138 MEQ/L (136-145); TOTAL PROTEIN 6.2 GM/DL (6.4-8.2)
[2018-08-17 13:10] LABS: CPK CREATINE PHOSPHOKINASE 77 U/L (39-308); MB/CK RELATIVE INDEX 2.47 (< OR =4); TROPONIN I 0.03 NG/ML (< 0.10)
--- NOTE | 2018-08-17 15:15 | REP ---
Chest x-ray: Two views. History: Shortness of breath. Comparison study: June 28, 2018. Findings: A right-sided central venous catheter remains in place, unchanged. Mildly prominent heart is again seen unchanged. The lungs are well inflated and clear. Pleural angles are sharp. The aorta is somewhat calcific. No significant bony abnormality is seen. Impression: Right-sided tunneled central venous catheter. Somewhat elevated right hemidiaphragm. Borderline heart size. Otherwise no acute disease. Unreviewed
[2018-08-17 15:24] VITALS: BP 110/74
--- NOTE | 2018-08-18 05:53 | ECGEPIP ---
[facility] - ED Test Date: 2018-08-17 Pat Name: MICHAEL ALVAREZ Department: Room: - Gender: Male Retail Department Manager: karlie : 1950 Requested By: Linette Gonzales Order Number: [id number] Reading MD: Dino Luis Measurements Intervals [place] Rate: 69 P: 43 AK: 167 QRS: QRSD: 122 T: 85 QT: 409 QTc: 441 Interpretive Statements SINUS RHYTHM NONSPECIFIC T-WAVE ABNORMALITY SIMILAR TO 06/28/18 Electronically Signed on 08-18-2018 5:53:01 EDT by Dino Luis
== END 2018-08-17 17:36 | disposition home or self-care (01) ==
LOC: M ED 10:25
DX: R68.89 Other general symptoms and signs (principal); N18.6 End stage renal disease; Z99.2 Dependence on renal dialysis; R06.02 Shortness of breath; R10.10 Upper abdominal pain, unspecified; R19.7 Diarrhea, unspecified; E11.9 Type 2 diabetes mellitus without complications; I11.9 Hypertensive heart disease without heart failure; I25.10 Atherosclerotic heart disease of native coronary artery without angina pectoris; Z95.5 Presence of coronary angioplasty implant and graft; I87.2 Venous insufficiency (chronic) (peripheral); F20.9 Schizophrenia, unspecified; F32.9 Major depressive disorder, single episode, unspecified; Z79.899 Other long term (current) drug therapy; Z79.82 Long term (current) use of aspirin; Z79.4 Long term (current) use of insulin; Z79.01 Long term (current) use of anticoagulants; Z88.4 Allergy status to anesthetic agent

== ENCOUNTER 2018-09-19 19:12 | Inpatient (IN) | payer MEDICARE, MEDICAID ==
[~2018-09-19] VITALS: Ht 170.2 cm; Wt 100.0 kg
[2018-09-19 20:34] LABS: BASO # 0.1 10^3/uL (0.0-0.2); EOS # 1.1 10^3/uL (0.0-0.50); EOS % 12.1 % (0.0-3.0); HEMATOCRIT 30.1 % (42.0-52.0); LYMPH % 11.5 % (24.0-44.0); MEAN CORPUSCULAR HEMOGLOBIN 33.2 pg (27.0-33.0); MEAN CORPUSCULAR HGB CONC 33.2 g/dl (32.0-36.5); MONO % 10.9 % (0.0-5.0); NEUTROPHILS # 5.5 10^3/uL (1.8-7.7); NEUTROPHILS % 63.1 % (36.0-66.0); PLATELET COUNT, AUTOMATED 197 10^3/uL (150-450); RED BLOOD COUNT 3.01 10^6/uL (4.30-6.10); WHITE BLOOD COUNT 8.8 10^3/uL (4.0-10.0)
[2018-09-19 20:53] LABS: BLOOD UREA NITROGEN 52 MG/DL (7-18); CALCIUM LEVEL 7.9 MG/DL (8.8-10.2); CARBON DIOXIDE LEVEL 24 MEQ/L (21-32); CHLORIDE LEVEL 102 MEQ/L (98-107); CK-MB VALUE MASS 1.4 NG/ML (<3.6); CPK CREATINE PHOSPHOKINASE 125 U/L (39-308); CREATININE FOR GFR 6.09 MG/DL (0.70-1.30); GLOMERULAR FILTRATION RATE 9.8 (>49); GLUCOSE, FASTING 190 MG/DL (70-100); MB/CK RELATIVE INDEX 1.12 (< OR =4); NT-PRO BNP 4919 PG/ML (<125); POTASSIUM SERUM 4.3 MEQ/L (3.5-5.1); SODIUM LEVEL 137 MEQ/L (136-145); TROPONIN I < 0.02 NG/ML (< 0.10)
[2018-09-19 20:57] LABS: INR 1.28; PARTIAL THROMBOPLASTIN TIME 37.2 SECONDS (25.0-38.4); PROTHROMBIN TIME 15.7 SECONDS (11.8-14.0)
[2018-09-19] MEDS: DOCUSATE SODIUM 100 MG CAP PO SCH (21:00)
--- NOTE | 2018-09-19 22:31 | ECGEPIP ---
[facility] - ED Test Date: 2018-09-19 Pat Name: SATHISH ANTONIO Department: Room: - Gender: Male Concrete Pump Operator: kk : 1950 Requested By: CAROLYN Horvath Order Number: [id number] Reading MD: Sathish Frederick Measurements Intervals [place] Rate: 60 P: 60 ID: [id number] QRS: QRSD: 104 T: 82 QT: 437 QTc: 439 Interpretive Statements SINUS RHYTHM NONSPECIFIC T-WAVE ABNORMALITY Similar to tracing done 08-17-18 Electronically Signed on 09-19-2018 22:31:28 EDT by Sathish Frederick
[2018-09-19] MEDS ORDERED: HYDR-3910 PO (23:57)
[2018-09-19] MEDS ORDERED: OCEA0.654 (23:57)
[2018-09-19] MEDS ORDERED: WARF-23 PO (23:57)
[2018-09-19] MEDS ORDERED: ROPI0.253 PO (23:58)
[2018-09-19] MEDS ORDERED: SIMV20TA2 PO (23:58)
[2018-09-20] MEDS ORDERED: MOM 30ML SUSPENSION UDC PO PRN (00:45)
[2018-09-20] MEDS ORDERED: MAALOX 30 ML SUSP *UDC PO PRN (00:45)
[2018-09-20 02:30] VITALS: BP 189/89
[2018-09-20] MEDS ORDERED: GLUCAGON FOR INJ 1 MG VIAL (J1610) SC PRN (02:30)
[2018-09-20] MEDS ORDERED: **hydrALAZINE HCL** 25 MG TAB PO PRN (02:30)
[2018-09-20] MEDS ORDERED: GLUCOSE 4 GM CHEW TABLET PO PRN (02:30)
[2018-09-20] MEDS ORDERED: SODIUM CHLORIDE NASAL 0.65% SPRAY BTL (OCEAN) PRN (02:30)
[2018-09-20] MEDS ORDERED: DEXTROSE 50% 50 ML SYRINGE IV PRN (02:30)
--- NOTE | 2018-09-20 02:41 | HPEPDOC ---
General Date of Admission 09/20/18 Date of Service: Sep 20, 2018 Primary Care Physician: GAGE JADE MD Attending Physician: ADA GARCÍA DO Chief Complaint The patient is a 68-year-old male admitted with a reason for visit of General Illness. Source: Patient, Old records Exam Limitations: Mild cognitive slowing Timing/Duration: Unsure Associated Symptoms: Unobtainable (Denies ROS but states "feels real bad", "my nerves and parkinson are acting up") History of Present Illness 68 yo DM male with ESRD (CKD IV) non compliant with dialysis presents "feeling real bad" and "my legs are jumping" and "my nerves and parkinsons are acting up". 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 Additional information obtained from old records (last hospitalized 03/2018). Patient states he stopped going to dialysis 1 week ago because felt he didn't need it. He specifically denies SOB, CO, N, V and states still makes good urine output. Patient states does not know what medications he is on and does not know if he has run out or if he is taking meds Home Medications Scheduled Amlodipine Besylate (Amlodipine Besylate) 10 Mg Tab, 10 MG PO DAILY, (Reported) Aspirin (Aspirin EC) 81 Mg Tab, 81 MG PO DAILY, (Reported) Atenolol (Atenolol) 50 Mg Tab, 50 MG PO DAILY, (Reported) Gabapentin (Gabapentin) 100 Mg Cap, 100 MG PO TID, (Reported) Hydralazine HCl (Hydralazine HCl) 25 Mg Tablet, 25 MG PO TID, (Reported) Insulin Detemir (Levemir) 1 Units/0.01 Ml Susp, 55 UNITS SC DAILY, (Reported) Insulin Human Lispro (Novolog) 100 U/Ml Inj, 10 UNITS SC BID, (Reported) MORNING AND AFTERNOON Insulin Human Lispro (Novolog) 100 U/Ml Inj, 5 UNITS SC QHS, (Reported) Ropinirole HCl (Ropinirole HCl) 0.25 Mg Tablet, 0.25 MG PO QHS, (Reported) Simvastatin (Simvastatin) 20 Mg Tablet, 20 MG PO DAILY, (Reported) Warfarin Sodium (Warfarin Sodium) 5 Mg Tablet, Unknown Dose PO DAILY, (Reported) Scheduled PRN Nitroglycerin (Nitrostat) 0.4 Mg Subl, 0.4 MG SL NITRO PRN for CHEST PAIN, (Reported) Sodium Chloride ([place]) 104 Ml [place], 2 SPRAY NA Q2H PRN for NASAL DRYNESS, (Reported) EACH NOSTRIL Allergies Coded Allergies: bupivacaine (Verified Adverse Reaction, Severe, induces Brugada syndrome, 06/14/18) Past Medical History Medical History COPD with pulmonary hypertension Diastolic CHF exacerbation Uncontrolled diabetes mellitus ESRD -HD started in March History of peripheral artery disease History of left common iliac artery aneurysm for which patient had refused repair and surgery in the past. History of CAD status post PCI Hypertension History of morbid obesity History of diabetic neuropathy History of schizoaffective disorder. History of left lower extremity DVT on Coumadin. Surgical History right hemodialsyis port left toe amputation Right AKA Family History Significant Family History: No pertinent family hx mother from infection; father from [place] Social History * Smoker: greater than 1 pack/day (states chain smokes but doesn't know how much) Alcohol: Denies Drugs: denies A-FIB/CHADSVASC A-FIB History Current/History of A-Fib/PAF?: No Current PO Anticoag Therapy: Yes Review of Systems Other systems 10 systems reviewed and negative per pateint except as per HPI Physical Examination General Exam: Positive: Alert, Cooperative, No Acute Distress Eye Exam: Positive: PERRLA, Conjunctiva & lids normal, EOMI ENT Exam: Positive: Atraumatic, Mucous membr. moist/pink, Pharynx Normal Neck Exam: Positive: Supple, +2 carotid pulse wo bruit Chest Exam: Positive: Clear to auscultation, Normal air movement, Rales Heart Exam: Positive: Bradycardic Telemetry: Positive: Bradycardia Abdomen Exam: Positive: Normal bowel sounds, Soft (obese, NT ND) Extremity Exam: Positive: Other (right AKA, left metatarsal amputation with dry crusty skin but no cellulitis; jumping legs during exam) Skin Exam: Positive: Nl turgor and temperature Neuro Exam: Positive: Normal Speech, Normal Tone, Sensation Intact Psych Exam: Positive: Mental status NL, Mood NL, Oriented x 3 Other physical findings CXR report pending but images reveiwed with cardiomegally, pulmonary vascular congestion but no effusion Vital Signs Vital Signs Date Time Temp Pulse Resp B/P (MAP) Pulse Ox O2 Delivery O2 Flow Rate FiO2 09/19/18 23:18 56 20 151/72 (98) 97 Nasal Cannula 2.0 09/19/18 19:20 99.0 Laboratory Data Labs 24H Laboratory Tests 2 09/19/18 20:20: Prothrombin Time 15.7H, Prothromb Time International Ratio 1.28, Activated Partial Thromboplast Time 37.2 09/19/18 20:22: Immature Granulocyte % (Auto) 1.4, White Blood Count 8.8, Red Blood Count 3.01L, Hemoglobin 10.0L, Hematocrit 30.1L, Mean Corpuscular Volume 100.0H, Mean Corpuscular Hemoglobin 33.2H, Mean Corpuscular Hemoglobin Concent 33.2, Red Cell Distribution Width 13.3, Platelet Count 197, Neutrophils (%) (Auto) 63.1, Lymphocytes (%) (Auto) 11.5L, Monocytes (%) (Auto) 10.9H, Eosinophils (%) (Auto) 12.1H, Basophils (%) (Auto) 1.0, Neutrophils # (Auto) 5.5, Lymphocytes # (Auto) 1.0L, Monocytes # (Auto) 1.0H, Eosinophils # (Auto) 1.1H, Basophils # (Auto) 0.1, Nucleated Red Blood Cells % (auto) 0.0, Anion Gap 11, Glomerular Filtration Rate 9.8L, Blood Urea Nitrogen 52H, Creatinine 6.09H, Sodium Level 137, Potassium Level 4.3, Chloride Level 102, Carbon Dioxide Level 24, Calcium Level 7.9L, Total Creatine Kinase 125, Creatine Kinase MB 1.4, Creatine Kinase MB Relative Index 1.12, Troponin I < 0.02, QG-Syx-Y-Type Natriuretic Peptide 4919H 09/19/18 20:39: POC pH (Misc Panel) 7.362, POC Base Excess (Misc Panel) -6.0L, POC Saturated Percent O2 (Misc) 97, POC pO2 (Misc Panel) 94.0, POC pCO2 (Misc Panel) 34.0L, POC HCO3 (Misc Panel) 19.3L, POC Total CO2 (Misc Panel) 20.0L CBC/BMP Laboratory Tests 09/19/18 20:22 Red Blood Count 3.01 L, Mean Corpuscular Volume 100.0 H, Mean Corpuscular Hemoglobin 33.2 H, Mean Corpuscular Hemoglobin Concent 33.2, Red Cell Distribution Width 13.3, Neutrophils (%) (Auto) 63.1, Lymphocytes (%) (Auto) 11.5 L, Monocytes (%) (Auto) 10.9 H, Eosinophils (%) (Auto) 12.1 H, Basophils (%) (Auto) 1.0, Neutrophils # (Auto) 5.5, Lymphocytes # (Auto) 1.0 L, Monocytes # (Auto) 1.0 H, Eosinophils # (Auto) 1.1 H, Basophils # (Auto) 0.1, Calcium Level 7.9 L, Total Creatine Kinase 125 Microbiology Microbiology 09/19/18 Blood Culture, Received Pending 09/19/18 Blood Culture, Received Pending 09/19/18 Respiratory Virus Panel (PCR) ([facility]) - Final, Complete Assessment/Plan Acute diastolic CHF due to non compliance with dialysis Nephrology consulted. lasix given in ED with relief of prior SOB. ESRD stage V on hemodialysis Non compliant. nephrology consulted Diabetes - continue SSI, long acting insulin History of peripheral artery disease with History of left lower extremity DVT on Coumadin. - non compliant. INR subtherapeutic. pharmacy consulted for warfarin management. continue lovenox CODE: FULL DVT PROPH: enoxaprin, warfarin Plan / VTE VTE Prophylaxis Ordered?: Yes ADA GARCÍA DO Sep 20, 2018 00:32
[2018-09-20] MEDS: ACETAMINOPHEN TAB 650MG DOSE (2X325MG) PO PRN ×2 (02:57→13:29)
[2018-09-20 06:00] VITALS: BP 149/68
--- NOTE | 2018-09-20 07:54 | REP ---
Clinical: Cough and dyspnea. Technique: Single semiupright AP view of the chest. Comparison: 08/17/2018. Findings: Double-lumen catheter with tip in the SVC. Stable cardiomegaly and chronic interstitial changes are appreciated. No obvious focal consolidation, effusion, or pneumothorax. Skeletal structures intact. Impression: Chronic changes. No obvious acute process. If the patient remains symptomatic consider complete PA and lateral chest series or chest CT. Electronically Signed by Fredy Unger MD 09/20/2018 07:45 A
[2018-09-20] MEDS: GABAPENTIN 100 MG CAP PO SCH ×3 (08:32→21:24)
[2018-09-20] MEDS: SIMVASTATIN 20 MG TAB PO SCH (08:32)
[2018-09-20] MEDS: DOCUSATE SODIUM 100 MG CAP PO SCH ×2 (08:32→21:24)
[2018-09-20] MEDS: amLODIPine 10 MG TAB PO SCH (08:33)
[2018-09-20] MEDS: NICOTINE 21MG/24HR 1 EA TRANSDERMAL TD SCH (08:33)
[2018-09-20] MEDS: ASPIRIN 81 MG ENTERIC TAB PO SCH (08:33)
[2018-09-20] MEDS: ATENOLOL 50 MG TAB PO SCH (08:33)
[2018-09-20] MEDS: HEPARIN SOD (PORCINE) 5000 UNITS/ML VIAL SC SCH ×2 (08:34→21:27)
[2018-09-20] MEDS: HumaLOG INSULIN (NovoLOG) PER UNIT SC SCH ×5 (08:35→17:40)
[2018-09-20] MEDS: LEVEMIR (INSULIN DETEMIR) 1 UNITS/0.01ML SC SCH (08:35)
[2018-09-20] MEDS ORDERED: DARBEPOETIN 100 MCG/0.5 ML *DIALYSIS* SYRINGE (J0882) IV SCH (09:30)
[2018-09-20 09:45] LABS: FERRITIN 1864 NG/ML (26-388); IRON (FE) 92 UG/DL (65-175); PERCENT SATURATION 43.2 % (19.7-50.0); PHOSPHORUS LEVEL 7.2 MG/DL (2.5-4.9); TOTAL IRON BINDING CAPACITY 213 UG/DL (250-450)
[2018-09-20] MEDS ORDERED: HEPARIN 1,000 UNITS/ML 10ML VIAL (FOR RADIOLOGY& DIALYSIS ONLY) IV ONE (11:00)
[2018-09-20] MEDS ORDERED: HEPARIN 1,000 UNITS/ML 10ML VIAL (FOR RADIOLOGY& DIALYSIS ONLY) XX ONE (11:00)
[2018-09-20 14:00] VITALS: BP 195/89
[2018-09-20 14:26] VITALS: BP 135/65
--- NOTE | 2018-09-20 15:05 | IPNPDOC ---
Text Note Date of Service The patient was seen on 09/20/18. NOTE Subjective: Patient is a 68-year-old male with a PMHx of ESRD on HD, COPD / Pulmonary HTN, HTN, CAD s/p PCI, Diastolic CHF, PVD (s/p L BKA, R AKA), DM2, L common iliac artery aneurysm (Refused repair), Morbid obesity, Schizoaffective disorder, LLE DVT (on Coumadin), who presented to the emergency room with reports of feeling bad and his legs feeling jumpy. Patient was found to be noncompliant with dialysis for over 1-2 weeks. Patient was admitted to hospitalist service for further evaluation and treatment. Nephrology was called on consultation. Patient was seen and examined at the bedside. Patient reports that he has been noncompliant with his dialysis access. He feels like he does not believe in dialysis. Patient usually gets dialysis when he feels like it currently denies chest pain, short of breath or palpitations. Denies nausea, vomiting, has been eating her breakfast tray. Objective: Vitals (See below) General: Lying in bed, no acute distress, comfortable, AAOx3 HEENT: NC, AT CVS: RRR, +S1S2 Lungs: Fair air entry b/l, no appreciable rhonchi, rales or wheezing Abdomen: Soft, nondistended, nontender Extremities: L BKA, R AKA Assessment and plan: Missed HD for 1-2 weeks - Hx of ESRD on HD - Reported muscle spasms / not feeling well - Patient will go going for HD today - Nephrology on consult COPD / Pulmonary HTN - no evidence of exacerbation - c/w inhaled therapy as ordered HTN; s/p Hypertensive urgency - likely 2/2 missed HD - BP well controlled - c/w Amlodipine and Hydralazine CAD s/p PCI - c/w ASA and Simvastatin Diastolic CHF - No evidence of fluid overload - c/w Dialysis as stated above PVD - s/p L BKA, R AKA - c/w ASA and Simvastatin DM2 - c/w ISS and Levemir DLP - c/w Simvastatin L common iliac artery aneurysm - Had refused repair in the past Morbid obesity - Complicating medical care Schizoaffective disorder - Currently not on medications Neuropathy - c/w Gabapentin RLS - c/w Ropinirole LLE DVT - INR sup-therapeutic - likely 2/2 non-compliance - Currently on Coumadin DVT prophylaxis - c/w Heparin while INR is sub-therapeutic VS,Fishbone, I+O VS, Fishbone, I+O Laboratory Tests 09/19/18 20:22 Red Blood Count 3.01 L, Mean Corpuscular Volume 100.0 H, Mean Corpuscular Hemoglobin 33.2 H, Mean Corpuscular Hemoglobin Concent 33.2, Red Cell Distribution Width 13.3, Neutrophils (%) (Auto) 63.1, Lymphocytes (%) (Auto) 11.5 L, Monocytes (%) (Auto) 10.9 H, Eosinophils (%) (Auto) 12.1 H, Basophils (%) (Auto) 1.0, Neutrophils # (Auto) 5.5, Lymphocytes # (Auto) 1.0 L, Monocytes # (Auto) 1.0 H, Eosinophils # (Auto) 1.1 H, Basophils # (Auto) 0.1, Calcium Level 7.9 L, Phosphorus Level 7.2 H, Total Creatine Kinase 125 Vital Signs Date Time Temp Pulse Resp B/P (MAP) Pulse Ox O2 Delivery O2 Flow Rate FiO2 09/20/18 14:26 135/65 (88) 09/20/18 14:00 97.8 63 18 94 09/20/18 02:11 Nasal Cannula 2.0 I&O- Last 24 Hours up to 6 AM 09/20/18 06:00 Intake Total 0 ml Output Total 500 ml Balance -500 ml JERI SINGH MD Sep 20, 2018 15:05
[2018-09-20] MEDS ORDERED: NYSTATIN 100,000 UNITS/GM TOPICAL PWD 15 GM TOP PRN (16:00)
[2018-09-20] MEDS ORDERED: WARFARIN SOD 5 MG TAB PO SCH (17:00)
--- NOTE | 2018-09-20 18:37 | ECHO ---
DATE OF PROCEDURE: 09/20/2018 AGE: 68 GENDER: Male HEIGHT: 67 inches WEIGHT: 220 pounds BODY SURFACE AREA: 2.11 m2 PATIENT LOCATION: Inpatient, [address] [place] [address], room 4206 REFERRING PHYSICIAN: Alberta Dover MD INDICATION: Heart failure (unspecified). 2-D MEASUREMENTS: RV: 4.0 cm LV: 5.8 cm Septum: 1.3 cm Posterior wall: 1.3 cm Aortic root: 3.4 cm LA: 4.5 cm LVEF: 65% DOPPLER MEASUREMENTS: AV: 1.9 m/s LVOT: 1.0 cm LVOT diameter: 2.1 cm MV-E: 62, A: 109, EA ratio: 0.6 Early mitral deceleration time: 391 ms E prime: 4.4, A prime: 6.5, E/E prime ratio: 14 PCWP: 16.3 mmHg PV: 0.8 m/s Pulmonary artery acceleration time: 88 ms RVSP: 44 mmHg IVC: 1.6 cm COMMENTS Normal sinus rhythm - sinus bradycardia without intraventricular conduction disturbance. Technically challenging study in light of the patient's body habitus, but diagnostically useful information was still obtained. M-mode and two-dimensional echocardiography was performed with pulsed, continuous wave, color flow and tissue Doppler studies. At least mildly dilated left and hypertrophied left ventricle with normal appearing wall motion. Mild to moderately dilated left atrium with impairment of LV diastolic function and current estimated mean left atrial pressure mildly elevated. Normal right ventricular chamber size with normal wall motion and Doppler evidence of moderate pulmonary hypertension. Slightly dilated right atrium but normal IVC size with slightly reduced respiratory collapse in keeping with an elevated central venous pressure of approximately 10 mmHg. No apparent intracardiac mass or pericardial effusion. Aortic valvular sclerosis without stenosis. Normal aortic root size. Moderate mitral annular calcification without inflow tract obstruction and only very mild insufficiency. Normal appearing tricuspid valve with mild insufficiency.
[2018-09-20] MEDS ORDERED: rOPINIRole 0.25 MG TAB(REQUIP) PO SCH (21:00)
[2018-09-20] MEDS ORDERED: HumaLOG INSULIN (NovoLOG) PER UNIT SC SCH (21:00)
--- NOTE | 2018-09-20 21:35 | CR ---
DATE OF CONSULTATION: 09/20/2018 REQUESTING PHYSICIAN: Dr. Yaritza Sharpe. CONSULTING PHYSICIAN: Dr. Brar. REASON FOR CONSULTATION: Management of end-stage renal disease and hemodialysis. CHIEF COMPLAINT: Patient presented to the emergency room yesterday not feeling well after missing one week of hemodialysis. HISTORY OF PRESENT ILLNESS: Mr. Sathish Cisneros is a 68-year-old male with past medical history of end-stage renal disease on hemodialysis every Tuesday, , Tuesday. Last hemodialysis was more than a week ago, noncompliant with medications, fluid restrictions and outpatient dialysis. He presented to the hospital yesterday not feeling well after missing a week of dialysis. He reported that his legs were jumping and his nerves were acting up. He was found to be in fluid overload as well. He was admitted under the hospitalist service last night. Nephrology service was called for further help in the management of end-stage renal disease and hemodialysis. I saw and evaluated the patient today morning. I had already arranged his urgent hemodialysis to be done today morning because he had missed multiple sessions of dialysis. Patient was being dialyzed. He was still complaining of restless legs; however, his shortness of breath was improving with fluid removal. PAST MEDICAL HISTORY: 1. End-stage renal disease on hemodialysis every Tuesday, , Tuesday. 2. History of diabetes mellitus type 2. 3. History of restless leg syndrome. 4. Hypertension. 5. Chronic diastolic congestive heart failure. 6. Chronic obstructive pulmonary disease (COPD). 7. Coronary artery disease. 8. Morbid obesity. 9. Schizoaffective disorder. 10. History of deep venous thrombosis (DVT) of the left lower extremity, noncompliant with Coumadin. PAST SURGICAL HISTORY: 1. Right-sided tunneled hemodialysis catheter. 2. Left transmetatarsal site amputation. 3. Right above-knee amputation. ALLERGIES: Patient is allergic to BUPIVACAINE. FAMILY HISTORY: No significant family history of end-stage renal disease requiring hemodialysis. SOCIAL HISTORY: Patient is an active smoker. He smokes more than one pack a day. He denies any illicit drug abuse or alcohol abuse. Patient has very poor living conditions. REVIEW OF SYSTEMS: CONSTITUTIONAL: Patient denies any fevers or chills. He does report generalized not feeling well. EYES: He denies any blurry vision, double vision. EARS, NOSE AND THROAT (ENT): Denies any dysphagia, odynophagia. CARDIOVASCULAR: He denies any chest pain or palpitation. RESPIRATORY: He does report some shortness of breath. He denies any cough or phlegm. GASTROINTESTINAL (GI): He denies any nausea, vomiting. GENITOURINARY: He denies any dysuria or hematuria. MUSCULOSKELETAL: Patient is an amputee. He has right above-knee amputation, unable to walk. CENTRAL NERVOUS SYSTEM (HOME VISITOR): He denies any strokes or seizures. SKIN: He denies any rashes or ulcers. PSYCHOLOGIC: He has schizoaffective disorder. ENDOCRINE: He reports diabetes mellitus type 2. All other review of systems is negative. PHYSICAL EXAMINATION GENERAL: Patient is awake, alert, oriented times three, laying in bed getting hemodialysis done. VITAL SIGNS: Temperature is 97.7 degrees Fahrenheit, blood pressure is 136/72, pulse is 61, respiratory rate of 20, saturating 95% on room air. HEAD AND NECK EXAM: Extraocular muscles intact. Pupils equally round and reactive to light. Mucous membranes are moist. Neck is supple. There is mildly elevated jugular venous distention (JVD). CARDIOVASCULAR: S1, S2. Regular rate. 1+ edema of the left lower extremity. : RESPIRATORY: Mildly decreased breath sounds at the bases, otherwise no active rales or rhonchi. ABDOMEN: Obese, soft, positive bowel sounds. Nontender. MUSCULOSKELETAL: Patient has A left transmetatarsal site amputation. He has a right above-knee amputation. CENTRAL NERVOUS SYSTEM (HOME VISITOR): No focal deficit. He is able to move bilateral upper extremities site. PSYCHOLOGIC: Patient is agitated and complaining of restless leg. LABORATORY REVIEW: Complete blood count (CBC) showed a WBC 8.8, hemoglobin is 10, platelets are 197. Basic metabolic panel (BMP) showed sodium 137, potassium 4.3, chloride 102, bicarbonate 24, BUN 52, creatinine is 6. Pro-BNP was 4919. MICROBIOLOGY: Respiratory viral panel was negative. Blood cultures are negative so far. IMAGING STUDIES: The chest x-ray was done yesterday which showed chronic changes. No obvious acute process. CURRENT INPATIENT MEDICATIONS: Patient 's medications include: - Mylanta - Tylenol as needed - amlodipine 10 mg daily - aspirin 81 mg daily - atenolol 50 mg by mouth daily - Aranesp 100 mcg IV with dialysis - Colace 100 mg by mouth twice a day - gabapentin 100 mg by mouth three times a day - heparin subcutaneous - hydralazine 25 mg by mouth every 8 hours - insulin Levemir 5 units subcutaneous daily - insulin sliding scale - nicotine patch - Nystatin powder topically - Requip 0.25 mg nightly - simvastatin 20 mg daily - warfarin 5 mg by mouth daily ASSESSMENT: A 68-year-old male with history of end-stage renal disease on hemodialysis, chronic diastolic congestive heart failure, diabetes mellitus type 2, chronic left lower extremity deep venous thrombosis (DVT), admitted this time with decompensated congestive heart failure after missing hemodialysis. PLAN: 1. End-stage renal disease on hemodialysis. Patient is noncompliant with dialysis. He has missed one full week of dialysis today. He is off schedule; however, he is being emergently dialyzed for optimization of volume status. I will try to remove at least 3 kg of fluid. Next hemodialysis will be done tomorrow morning, as per his regular schedule. 2. Acute decompensated diastolic congestive heart failure. It is secondary to noncompliance with his hemodialysis. Volume status will be optimized with dialysis. Continue home dose of antihypertensives. 3. Hypertension with hypertensive heart disease in end-stage renal disease. Continue current dose of amlodipine 10 mg by mouth daily, atenolol 50 mg by mouth daily, hydralazine 25 mg every 8 hours with holding parameters. 4. Restless leg syndrome. Patient 's iron levels are adequate. Continue current dose of Requip 0.25 mg by mouth nightly. 5. Anemia in end-stage renal disease. Hemoglobin is 10. I have started the patient on Aranesp 100 mcg IV with hemodialysis. 6. Diabetes mellitus type 2, insulin dependent. Continue current dose of Levemir and continue insulin sliding scale. 7. Left leg DVT. Continue current dose of Coumadin. Patient is noncompliant. INR is subtherapeutic Thank you for involving me in the care of this patient. I shall be happy to follow the patient along with you tomorrow morning.
[2018-09-20 22:00] VITALS: BP 144/67
[2018-09-21] MEDS: ACETAMINOPHEN TAB 650MG DOSE (2X325MG) PO PRN (04:06)
[2018-09-21 06:00] VITALS: BP 122/71
[2018-09-21 06:31] LABS: HEMATOCRIT 31.9 % (42.0-52.0); HEMOGLOBIN 10.4 g/dl (13.5-17.5); MEAN CORPUSCULAR HGB CONC 32.6 g/dl (32.0-36.5); MEAN CORPUSCULAR VOLUME 101.3 fl (80.0-96.0); PLATELET COUNT, AUTOMATED 209 10^3/uL (150-450); RED BLOOD COUNT 3.15 10^6/uL (4.30-6.10)
[2018-09-21 06:57] LABS: CALCIUM LEVEL 7.9 MG/DL (8.8-10.2); CREATININE FOR GFR 4.69 MG/DL (0.70-1.30); GLOMERULAR FILTRATION RATE 13.3 (>49); POTASSIUM SERUM 3.5 MEQ/L (3.5-5.1)
[2018-09-21 08:07] VITALS: BP 136/69
[2018-09-21] MEDS: GABAPENTIN 100 MG CAP PO SCH (08:07)
[2018-09-21] MEDS: DOCUSATE SODIUM 100 MG CAP PO SCH (08:07)
[2018-09-21] MEDS: ATENOLOL 50 MG TAB PO SCH (08:07)
[2018-09-21] MEDS: amLODIPine 10 MG TAB PO SCH (08:07)
[2018-09-21] MEDS: ASPIRIN 81 MG ENTERIC TAB PO SCH (08:07)
[2018-09-21] MEDS: LEVEMIR (INSULIN DETEMIR) 1 UNITS/0.01ML SC SCH (08:08)
[2018-09-21] MEDS: HumaLOG INSULIN (NovoLOG) PER UNIT SC SCH ×2 (08:08→08:09)
[2018-09-21] MEDS: HEPARIN SOD (PORCINE) 5000 UNITS/ML VIAL SC SCH (08:08)
[2018-09-21] MEDS: NICOTINE 21MG/24HR 1 EA TRANSDERMAL TD SCH (08:09)
[2018-09-21] MEDS: SIMVASTATIN 20 MG TAB PO SCH (08:09)
--- NOTE | 2018-09-21 08:53 | REP ---
Clinical: CHF. Technique: AP and lateral. Comparison: 09/19/2018, 08/17/2018. Findings: Stable cardiomegaly. Double-lumen dialysis catheter with tip in the SVC. Lung garcia demonstrate chronic-appearing changes without definite pulmonary vascular congestion or interstitial edema. No obvious consolidation or effusion. No pneumothorax. Skeletal structures intact. Impression: Chronic stable changes. No obvious evidence for CHF/pulmonary vascular congestion. Electronically Signed by Fredy Unger MD 09/21/2018 08:45 A
[2018-09-21 09:34] LABS: INR 1.25; PROTHROMBIN TIME 15.4 SECONDS (11.8-14.0)
--- NOTE | 2018-09-21 10:39 | DS.PDOC ---
Discharge Summary General Date of Admission Sep 20, 2018 at 00:33 Date of Discharge 09/21/2018 Discharge Summary PROCEDURES PERFORMED DURING STAY: [None]. ADMITTING DIAGNOSES / DISCHARGE DIAGNOSES: Missed HD for 1-2 weeks COPD / Pulmonary HTN HTN; s/p Hypertensive urgency - likely 2/2 missed HD CAD s/p PCI Diastolic CHF PVD DM2 DLP L common iliac artery aneurysm Morbid obesity Schizoaffective disorder Neuropathy RLS LLE DVT DVT prophylaxis COMPLICATIONS/CHIEF COMPLAINT: Missed HD HISTORY OF PRESENT ILLNESS: Patient is a 68-year-old male with a PMHx of ESRD on HD, COPD / Pulmonary HTN, HTN, CAD s/p PCI, Diastolic CHF, PVD (s/p L BKA, R AKA), DM2, L common iliac artery aneurysm (Refused repair), Morbid obesity, Schizoaffective disorder, LLE DVT (on Coumadin), who presented to the emergency room with reports of feeling bad and his legs feeling jumpy. Patient was found to be noncompliant with dialysis for over 1-2 weeks. Patient was admitted to hospitalist service for further evaluation and treatment. Nephrology was called on consultation. HOSPITAL COURSE: Missed HD for 1-2 weeks - Hx of ESRD on HD (TTS) - Reported muscle spasms / not feeling well - Patient has received HD yesterday; will go to his outpatient HD today - Nephrology on consult COPD / Pulmonary HTN - no evidence of exacerbation - c/w inhaled therapy as ordered HTN; s/p Hypertensive urgency - likely 2/2 missed HD - BP well controlled - c/w Amlodipine and Hydralazine CAD s/p PCI - c/w ASA and Simvastatin Diastolic CHF - No evidence of fluid overload - c/w Dialysis as stated above PVD - s/p L BKA, R AKA - c/w ASA and Simvastatin DM2 - c/w ISS and Levemir DLP - c/w Simvastatin L common iliac artery aneurysm - Had refused repair in the past Morbid obesity - Complicating medical care Schizoaffective disorder - Currently not on medications Neuropathy - c/w Gabapentin RLS - c/w Ropinirole LLE DVT - INR sup-therapeutic - likely 2/2 non-compliance - Currently on Coumadin; will continue with current dose and have outpatient follow up with PCP DVT prophylaxis - c/w Heparin while INR is sub-therapeutic DISCHARGE MEDICATIONS: Please see below. ALLERGIES: Please see below. PHYSICAL EXAMINATION ON DISCHARGE: Vitals (See below) General: Lying in bed, no acute distress, comfortable, AAOx3 HEENT: NC, AT CVS: RRR, +S1S2 Lungs: Air entry is fair bilaterally without rhonchi, rales or wheezing Abdomen: Remains soft without distention or tenderness, morbidly obese Extremities: L BKA, R AKA LABORATORY DATA: Please see below. ACTIVITY: [As tolerated]. DISCHARGE PLAN: Follow-up with Dr. Anthony Casey and Dr. Brar within 7 days Remain compliant with treatment plan and medications Return to the ER if you experience any problems DISPOSITION: Home with services DISCHARGE CONDITION: [Stable]. TIME SPENT ON DISCHARGE: 35 minutes Vital Signs/I&Os Vital Signs Date Time Temp Pulse Resp B/P (MAP) Pulse Ox O2 Delivery O2 Flow Rate FiO2 09/21/18 08:07 66 136/69 09/21/18 06:00 96.1 20 96 09/20/18 02:11 Nasal Cannula 2.0 I&O- Last 24 Hours up to 6 AM 09/21/18 06:00 Intake Total 1650 ml Output Total 3225 ml Balance -1575 ml Laboratory Data Labs 24H Laboratory Tests 2 09/20/18 12:50: Bedside Glucose (Misc Panel) 137H 09/20/18 16:21: Bedside Glucose (Misc Panel) 195H 09/20/18 20:33: Bedside Glucose (Misc Panel) 161H 09/21/18 05:33: Nucleated Red Blood Cells % (auto) 0.0, Anion Gap 12, Glomerular Filtration Rate 13.3L, Blood Urea Nitrogen 33H, Creatinine 4.69H, Sodium Level 138, Potassium Level 3.5, Chloride Level 102, Carbon Dioxide Level 24, Calcium Level 7.9L 09/21/18 08:54: Prothrombin Time 15.4H, Prothromb Time International Ratio 1.25 CBC/BMP Laboratory Tests 09/21/18 05:33 Red Blood Count 3.15 L, Mean Corpuscular Volume 101.3 H, Mean Corpuscular Hemoglobin 33.0, Mean Corpuscular Hemoglobin Concent 32.6, Red Cell Distribution Width 13.7, Calcium Level 7.9 L FSBS Laboratory Tests Test 09/20/18 12:50 09/20/18 16:21 09/20/18 20:33 Range/Units Bedside Glucose (Misc Panel) 137 195 161 80-115 MG/DL Microbiology Microbiology 09/19/18 Blood Culture - Preliminary, Resulted No growth after 24 hours . All specim... 09/19/18 Blood Culture - Preliminary, Resulted No growth after 24 hours . All specim... 09/19/18 Respiratory Virus Panel (PCR) (SUKH) - Final, Complete Discharge Medications Scheduled Amlodipine Besylate (Amlodipine Besylate) 10 Mg Tab, 10 MG PO DAILY, (Reported) Aspirin (Aspirin EC) 81 Mg Tab, 81 MG PO DAILY, (Reported) Atenolol (Atenolol) 50 Mg Tab, 50 MG PO DAILY, (Reported) Gabapentin (Gabapentin) 100 Mg Cap, 100 MG PO TID, (Reported) Hydralazine HCl (Hydralazine HCl) 25 Mg Tablet, 25 MG PO TID, (Reported) Insulin Detemir (Levemir) 1 Units/0.01 Ml Susp, 55 UNITS SC DAILY, (Reported) Insulin Human Lispro (Novolog) 100 U/Ml Inj, 10 UNITS SC BID, (Reported) MORNING AND AFTERNOON Insulin Human Lispro (Novolog) 100 U/Ml Inj, 5 UNITS SC QHS, (Reported) Ropinirole HCl (Ropinirole HCl) 0.25 Mg Tablet, 0.25 MG PO QHS, (Reported) Simvastatin (Simvastatin) 20 Mg Tablet, 20 MG PO DAILY, (Reported) Warfarin Sodium (Warfarin Sodium) 5 Mg Tablet, Unknown Dose PO DAILY, (Reported) Scheduled PRN Nitroglycerin (Nitrostat) 0.4 Mg Subl, 0.4 MG SL NITRO PRN for CHEST PAIN, (Reported) Sodium Chloride ([place]) 104 Ml [place], 2 SPRAY NA Q2H PRN for NASAL DRYNESS, (Reported) EACH NOSTRIL Allergies Coded Allergies: bupivacaine (Verified Adverse Reaction, Severe, induces Brugada syndrome, 06/14/18) JERI SINGH MD Sep 21, 2018 10:39
--- NOTE | 2018-09-21 14:35 | IPN ---
DATE OF SERVICE: 09/21/2018 SUBJECTIVE: The patient was seen and examined at the bedside today morning. He is afebrile, hemodynamically stable. He was dialyzed yesterday. 3 liters of fluid was removed. He is feeling much better now. Today is the patient's regular day of dialysis. OBJECTIVE: Vital signs: Temperature is 96.1 degrees Fahrenheit, blood pressure 122/71, pulse is 93, respiratory rate of 20, saturating 96% on room air. Intake and output: Urine output recorded yesterday was 725 mL. He got 3 liters removed with dialysis. Weight in the bed scale was 100 kg yesterday. PHYSICAL EXAMINATION: General: The patient is awake, alert, oriented times three, lying in bed, in no apparent distress. Head and neck examination: Extraocular muscles intact. Pupils equally round and reactive to light. Mucous membranes are moist. Neck is supple. He has a right internal jugular (vein) (IJ) tunneled hemodialysis catheter. Cardiovascular: S1, S2, regular rate. 1+ edema of the left lower extremity. Respiratory: Chest is clear to auscultation bilaterally. Bilateral equal air entry. No rales or rhonchi. Abdomen: Soft, obese, positive bowel sounds. Musculoskeletal: Left transmetatarsal amputation and right above-knee amputation. Central nervous system ([employer]): No focal deficit. Power is 5/5 in bilateral upper extremities. LABORATORY REVIEW: Complete blood count (CBC) showed WBC of 9, hemoglobin 10.4, platelets are 209. Basic metabolic profile (BMP) showed sodium 138, potassium 3.5, chloride 102, bicarbonate 24, BUN 33, creatinine is 4.6. IMAGING: A chest x-ray was done today morning, which showed chronic stable changes. No evidence of congestive heart failure (CHF) or pulmonary congestion. CURRENT INPATIENT MEDICATIONS: The patient's medications were all reviewed by me. There is no change in the medications today as compared with yesterday. ASSESSMENT AND PLAN: 1. End-stage renal disease, on hemodialysis. Today is the patient's regular day of dialysis. I talked with the dialysis center. They have a spot open for him in the afternoon if the patient is discharged before the noontime and sent to outpatient dialysis. He can be dialyzed as outpatient today. 2. Chronic diastolic congestive heart failure. The patient's volume status is optimized now. He will get another session of dialysis today and get more fluid removed. He is hemodynamically stable. 3. Hypertension with hypertensive heart disease in end-stage renal disease. Continue current dose of amlodipine, atenolol, and hydralazine. The patient is noncompliant with medications at home. 4. Anemia in end-stage renal disease. The patient was given a dose of Aranesp with dialysis. The rest of the anemia management will be done as outpatient. DISPOSITION: It is okay to discharge the patient from nephrology standpoint.
== END 2018-09-21 10:40 | disposition home health service (06) | DRG 291 ==
LOC: M ED 19:12 → M ED INP 09-20 00:33 → M MSPAV 09-20 02:31
PROVIDERS: ADMIT Family Medicine; ATTEND Internal Medicine
PROC: 5A1D70Z Performance of Urinary Filtration, Intermittent, Less than 6 Hours Per Day (ICD-10-PCS; principal; 2018-09-20)
DX: I13.2 Hypertensive heart and chronic kidney disease with heart failure and with stage 5 chronic kidney disease, or end stage renal disease (principal); N18.6 End stage renal disease; I50.33 Acute on chronic diastolic (congestive) heart failure; J44.9 Chronic obstructive pulmonary disease, unspecified; I27.20 Pulmonary hypertension, unspecified; E11.65 Type 2 diabetes mellitus with hyperglycemia; E66.01 Morbid (severe) obesity due to excess calories; E11.22 Type 2 diabetes mellitus with diabetic chronic kidney disease; F17.200 Nicotine dependence, unspecified, uncomplicated; E11.51 Type 2 diabetes mellitus with diabetic peripheral angiopathy without gangrene; E78.5 Hyperlipidemia, unspecified; I72.3 Aneurysm of iliac artery; D63.1 Anemia in chronic kidney disease; I16.0 Hypertensive urgency; G25.81 Restless legs syndrome; I25.10 Atherosclerotic heart disease of native coronary artery without angina pectoris; E11.40 Type 2 diabetes mellitus with diabetic neuropathy, unspecified; F25.9 Schizoaffective disorder, unspecified; Z86.718 Personal history of other venous thrombosis and embolism; Z99.2 Dependence on renal dialysis; Z89.611 Acquired absence of right leg above knee; Z91.15 Patient's noncompliance with renal dialysis; Z79.01 Long term (current) use of anticoagulants; Z88.8 Allergy status to other drugs, medicaments and biological substances; Z79.4 Long term (current) use of insulin; Z79.82 Long term (current) use of aspirin; Z79.899 Other long term (current) drug therapy; Z68.34 Body mass index [BMI] 34.0-34.9, adult; Z89.512 Acquired absence of left leg below knee

== ENCOUNTER 2018-10-31 15:28 | Emergency (ER) | payer MEDICARE, MEDICAID ==
[~2018-10-31] VITALS: Ht 172.7 cm; Wt 99.1 kg
[~2018-10-31 15:28] MED LIST changes: -BENZ0.5T; -BENZ0.5T PO; +BENZ0.5T23; +BENZ0.5T23 PO; +ROPI0.253 PO
[2018-10-31] MEDS ORDERED: ACET-683 PO (15:45)
[2018-10-31] MEDS ORDERED: BREO1INH PO (15:55)
[2018-10-31] MEDS ORDERED: VITA500C24 PO (15:55)
[2018-10-31] MEDS ORDERED: ZIPR80CA12 PO (15:55)
[2018-10-31] MEDS ORDERED: HALO5TA PO (15:55)
[2018-10-31] MEDS ORDERED: VITA500045 PO (15:55)
[2018-10-31] MEDS ORDERED: CLOT1CRE2 TOP (15:55)
[2018-10-31] MEDS ORDERED: AURY1TAB PO (15:55)
[2018-10-31] MEDS ORDERED: WARF4TAB51 PO (15:55)
[2018-10-31] MEDS ORDERED: BENZ0.5T23 PO (15:55)
[2018-10-31 16:01] LABS: BASO # 0.1 10^3/uL (0.0-0.2); BASO % 0.9 % (0.0-1.0); EOS # 0.2 10^3/uL (0.0-0.50); EOS % 2.4 % (0.0-3.0); HEMATOCRIT 38.1 % (42.0-52.0); HEMOGLOBIN 12.9 g/dl (13.5-17.5); LYMPH # 1.1 10^3/uL (1.5-4.5); LYMPH % 14.7 % (24.0-44.0); MEAN CORPUSCULAR HEMOGLOBIN 34.7 pg (27.0-33.0); MEAN CORPUSCULAR HGB CONC 33.9 g/dl (32.0-36.5); MEAN CORPUSCULAR VOLUME 102.4 fl (80.0-96.0); MONO # 0.7 10^3/uL (0.0-0.8); MONO % 9.5 % (0.0-5.0); NEUTROPHILS # 5.6 10^3/uL (1.8-7.7); NEUTROPHILS % 71.9 % (36.0-66.0); PLATELET COUNT, AUTOMATED 195 10^3/uL (150-450); RED BLOOD COUNT 3.72 10^6/uL (4.30-6.10); WHITE BLOOD COUNT 7.8 10^3/uL (4.0-10.0)
[2018-10-31 16:38] LABS: ALT/SGPT 41 U/L (12-78); BILIRUBIN,DIRECT 0.1 MG/DL (0.0-0.2); BILIRUBIN,TOTAL 0.5 MG/DL (0.2-1.0); BLOOD UREA NITROGEN 12 MG/DL (7-18); CALCIUM LEVEL 8.5 MG/DL (8.8-10.2); CARBON DIOXIDE LEVEL 31 MEQ/L (21-32); CHLORIDE LEVEL 102 MEQ/L (98-107); CK-MB VALUE MASS 1.9 NG/ML (<3.6); CPK CREATINE PHOSPHOKINASE 99 U/L (39-308); CREATININE FOR GFR 2.54 MG/DL (0.70-1.30); GLUCOSE, FASTING 239 MG/DL (70-100); MB/CK RELATIVE INDEX 1.92 (< OR =4); POTASSIUM SERUM 3.6 MEQ/L (3.5-5.1); SODIUM LEVEL 140 MEQ/L (136-145); TOTAL PROTEIN 6.9 GM/DL (6.4-8.2); TROPONIN I < 0.02 NG/ML (< 0.10)
[2018-10-31 17:33] LABS: INR 1.22; PROTHROMBIN TIME 15.1 SECONDS (11.8-14.0)
[2018-10-31 17:34] VITALS: BP 161/81
--- NOTE | 2018-11-01 07:17 | ECGEPIP ---
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
== END 2018-10-31 18:48 | disposition home or self-care (01) ==
LOC: M ED 15:28 → EDBD 15:28 → M ED 18:48
DX: F25.9 Schizoaffective disorder, unspecified (principal); E11.9 Type 2 diabetes mellitus without complications; I12.0 Hypertensive chronic kidney disease with stage 5 chronic kidney disease or end stage renal disease; N18.6 End stage renal disease; Z99.2 Dependence on renal dialysis; Z79.899 Other long term (current) drug therapy; Z79.82 Long term (current) use of aspirin; Z79.4 Long term (current) use of insulin; Z79.01 Long term (current) use of anticoagulants; Z88.4 Allergy status to anesthetic agent; Z91.19 Patient's noncompliance with other medical treatment and regimen

== ENCOUNTER 2018-11-03 09:29 | Inpatient (IN) | payer MEDICARE, MEDICAID ==
[~2018-11-03] VITALS: Ht 170.2 cm; Wt 98.6 kg
[~2018-11-03 09:29] MED LIST changes: +ACET-683 PO; +AURY1TAB PO; +BREO1INH PO; +CLOT1CRE2 TOP; +SENN-53 PO; -SENN1TAB40 PO; -SIMV10TA2 PO; +SIMV10TA21 PO; -SIMV20TA2; -SIMV20TA2 PO; +SIMV20TA22; +SIMV20TA22 PO; +VITA500045 PO; +VITA500C24 PO; +WARF4TAB51 PO
[2018-11-03 11:01] LABS: ABG BASE EXCESS -0.8 (-2.0-2.0); ABG O2 SATURATION 97.7 % (95.0-99.0); ABG PARTIAL PRESSURE CO2 35.2 mmHg (35.0-45.0); ABG PARTIAL PRESSURE O2 94.5 mmHg (75.0-100.0); ABG STANDARD HCO3 23.8 MEQ/L (22.0-26.0); ABG TOTAL CO2 24.1 MEQ/L (23.0-31.0); ABG pH (ARTERIAL) 7.433 UNITS (7.350-7.450)
[2018-11-03 11:11] LABS: BASO % 0.2 % (0.0-1.0); HEMATOCRIT 36.1 % (42.0-52.0); HEMOGLOBIN 11.8 g/dl (13.5-17.5); LYMPH # 0.7 10^3/uL (1.5-4.5); LYMPH % 5.2 % (24.0-44.0); MEAN CORPUSCULAR HEMOGLOBIN 33.7 pg (27.0-33.0); MEAN CORPUSCULAR HGB CONC 32.7 g/dl (32.0-36.5); MEAN CORPUSCULAR VOLUME 103.1 fl (80.0-96.0); MONO # 1.5 10^3/uL (0.0-0.8); MONO % 11.2 % (0.0-5.0); NEUTROPHILS # 10.8 10^3/uL (1.8-7.7); PLATELET COUNT, AUTOMATED 194 10^3/uL (150-450)
--- NOTE | 2018-11-03 11:30 | REP ---
Chest x-ray: Two views. History: Cough and COPD. Comparison chest x-ray: September 21, 2018. Findings: A tunneled central venous catheter is noted in place on the right with its tip in the expected location of the superior vena cava. Heart is not enlarged. The lungs are well inflated and clear. Pleural angles are sharp. Pulmonary vasculature is not increased. Impression: No acute disease. Central venous tunnel catheter in place. Electronically Signed by Sanjay Da Silva MD 11/03/2018 11:21 A
[2018-11-03 11:37] LABS: ALBUMIN 2.8 GM/DL (3.2-5.2); BILIRUBIN,DIRECT 0.2 MG/DL (0.0-0.2); BILIRUBIN,TOTAL 0.6 MG/DL (0.2-1.0); CALCIUM LEVEL 8.6 MG/DL (8.8-10.2); CREATININE FOR GFR 4.32 MG/DL (0.70-1.30); GLOMERULAR FILTRATION RATE 14.6 (>49); POTASSIUM SERUM 4.4 MEQ/L (3.5-5.1); TOTAL PROTEIN 6.4 GM/DL (6.4-8.2)
--- NOTE | 2018-11-03 12:03 | REP ---
REASON: Atraumatic pain. COMPARISON: None. Syndesmophyte formation is seen along the right side of the thoracic spine. There is moderate disc space narrowing at every level. Cross-table lateral views were obtained. Grade 1 thoracic spine compression fractures are suspected at multiple levels difficult to evaluate on this limited exam. There is a double lumen central venous catheter in place, the tip of which is in the region of the superior vena cava. IMPRESSION: Chronic changes as described above. There is evidence to suggest DISH. Electronically Signed by Harman Mata DO 11/03/2018 02:14 P
--- NOTE | 2018-11-03 12:10 | REP ---
REASON: Atraumatic pain. There is disc space narrowing at every lumbar level. Lateral views are obtained cross-table. Endplate sclerosis and anterior lipping is seen at every level. There is a dextroconvex curve. Partial syndesmophyte formation is seen on the left at L3-4. There is no evidence of spondylolysis. IMPRESSION: Chronic changes as described above. Electronically Signed by Harman Mata DO 11/03/2018 02:14 P
[2018-11-03] MEDS ORDERED: ACETAMINOPHEN TAB 650MG DOSE (2X325MG) PO ONE (13:30)
--- NOTE | 2018-11-03 15:08 | REP ---
HISTORY: Fever of unknown origin. COMPARISON: 03/18/2018 The lack of intravenous contrast decreases the sensitivity of the exam. Limited evaluation of the mediastinum and pulmonary adrien show no gross abnormalities or significant changes from the prior exam. There is significant respiratory motion artifact throughout the exam. Bone window technique throughout the exam shows chronic changes with spinal degenerative changes. Evaluation of the lung garcia show respiratory motion artifact throughout the examination obscuring the detail. This is too such a degree, a significant nodule could be obscured. With that exception, there is no change from the prior exam. There is evidence of cylindrical bronchiectasis and fibrotic changes. IMPRESSION: Limited examination showing no acute disease with findings as described above. Electronically Signed by Harman Mata DO 11/03/2018 03:20 P
[2018-11-03] MEDS ORDERED: GLUCOSE 4 GM CHEW TABLET PO PRN (15:30)
[2018-11-03] MEDS ORDERED: GLUCAGON FOR INJ 1 MG VIAL (J1610) SC PRN (15:30)
[2018-11-03] MEDS ORDERED: DEXTROSE 50% 50 ML SYRINGE IV PRN (15:30)
[2018-11-03] MEDS ORDERED: NOVOINJ SC (15:44)
[2018-11-03] MEDS ORDERED: ATOR40TA75 PO (15:44)
--- NOTE | 2018-11-03 15:54 | REP ---
HISTORY: Fever of unknown origin. COMPARISON: 09/21/2017 The lack of intravenous contrast and oral bowel preparatory contrast significantly decreases the sensitivity of the exam. The exam is further limited by respiratory motion artifact and artifact secondary to the patient's arm seen strewn across his upper abdomen. Markedly limited evaluation of the solid intraabdominal organs show no gross abnormalities. There is cholelithiasis. Markedly limited evaluation of the pancreas and adrenal glands show no changes or gross abnormalities. Markedly limited evaluation of the kidneys show bilateral renovascular calcifications and a left renal cyst, which appears unchanged. Markedly limited evaluation of the abdominal aorta and periaortic regions show no significant changes from the prior exam. There is a large unchanged left common iliac artery aneurysm which measures 3.7 cm status quo. This is seen in conjunction with iliac arterial and common femoral arterial ectasia. A common femoral artery aneurysm on the left cannot be ruled out. It is unchanged. It measures approximately 1.9 cm. Markedly limited evaluation of the intraabdominal and intrapelvic bowel loops and the mesenteries show no significant changes from the prior exam. There is no intestinal obstruction. There is no evidence of free fluid or free air in the abdomen or the pelvis. Bone window technique throughout the exam shows no change in the appearance of the osseous structures. IMPRESSION: Markedly limited exam showing no significant change from the prior exam. There is cholelithiasis, status quo. Renal cysts and renovascular calcifications, status quo. Arterial aneurysms as described above, status quo. Other findings as described above. Electronically Signed by Harman Mata DO 11/03/2018 04:04 P
[2018-11-03] MEDS: GABAPENTIN 100 MG CAP PO SCH ×2 (16:00→20:40)
[2018-11-03] MEDS ORDERED: VANCOMYCIN HCL 1,000 MG, VIAL MATE ADAPTER 1 EACH in D5W 250 ML IV ONE (16:00)
--- NOTE | 2018-11-03 16:07 | HPEPDOC ---
[facility] Medical History & Physical Date of Admission Nov 03, 2018 Date of Service: Nov 03, 2018 History and Physical CHIEF COMPLAINT: Low back pain HISTORY OF PRESENT ILLNESS: This is a patient is a 68-year-old man with a history of known end-stage renal disease and nonadherence to medical therapies secondary to schizoaffective disorder, who reportedly was seen at dialysis several days ago which was felt to be quite agitated. The patient lives alone tells me he was recently evicted from his apartment and he hasn't November 17 to indicate the premises. He tells me that the pain in his back is been worsening until he could no longer take it prompting him to present to the emergency room today. He denies weight loss paresthesias or weakness or paralysis changes in bladder habits. He does describe some diarrhea and states that being incontinent of stool throughout his apartment was 1 factor leading to his infection. In the emergency room the patient was found to be febrile Otherwise patient denies hair loss, headache, visual changes, chest pain, shortness of breath, cough, nausea, vomiting, abdominal pain, muscle aches, worsening arthritis, change in mood PAST MEDICAL HISTORY: 1. End-stage renal disease on hemodialysis. 2. Schizoaffective disorder. 3. Diabetes mellitus 4 diastolic congestive heart failure 5 hypertension 6 hypertensive heart disease 7. Peripheral neuropathy 8 coronary artery disease 9. Morbid obesity 10 DVT 11 peripheral arterial disease 12 COPD 11 restless leg syndrome 12 anemia of end-stage renal disease. HOME MEDICATIONS: Please see below. ALLERGIES: Please see below PAST SURGICAL HISTORY: 1. Right tunneled HD catheter 2. Left transmetatarsal amputation. 3. Right above-knee amputation. SOCIAL HISTORY: Lives with: Alone, Employment: Disabled, Tobacco use: Active smoker approximately 100 pack years. ETOH: Denies, Illicit drug use: Denies, CODE STATUS: Full code FAMILY HISTORY:Reviewed and noncontributory REVIEW OF SYSTEMS: 10 systems reviewed and negative other than HPI PHYSICAL EXAMINATION: VITAL SIGNS: Temperature 101, pulse 99, respiratory rate 26, blood pressure 156/81, pulse oximetry 96 % on room air. GENERAL: Disheveled morbidly obese malodorous man laying in a stretcher at a 30 angle awake alert oriented speaking in complete sentences no acute distress HEENT: Dry mucous membranes no elevation in CVP CARDIOVASCULAR: S1 S2 regular no additional heart sounds appreciated. Mildly tachycardic at the time of my exam RESPIRATORY: Clear to auscultation bilaterally. Patient does not cooperate with examination of his back or sacral region and is unable to turn in bed ABDOMINAL: Bowel sounds present abdomen soft and diffusely tender to light palpation, his left inguinal region appears to have yeast under his pannus EXTREMITIES: No clubbing cyanosis or edema evidence of chronic venous stasis in the left lower extremity status post AKA on the right transmetatarsal" on the left NEUROLOGICAL: Spontaneously moves all 4 extremities cranial 2 through 12 grossly intact no gross focal deficits appreciated PSYCHOLOGICAL: At baseline as per review of previous documentation LABORATORY DATA: See below. MICROBIOLOGY: Please see below. IMAGING: Thoracic spine x-ray:There is moderate disc space narrowing at every level. Cross-table lateral views were obtained. Grade 1 thoracic spine compression fractures are suspected at multiple levels difficult to evaluate on this limited exam. There is a double lumen central venous catheter in place, the tip of which is in the region of the superior vena cava. Lumbar spine:Chronic changes Chest x-ray:No acute disease. Central venous tunnel catheter in place. Chest CT:Limited examination showing no acute disease with CT abdomen and pelvis: Report pending ASSESSMENT & PLAN: This is a 68-year-old man with end-stage renal disease presenting with fever. PROBLEMS: 1. Fever: Etiology is not immediately clear. The patient certainly has a very poor hygiene smelling is obvious oral himself urine. I will check blood cultures as well as a culture from his dialysis catheter. Follow-up CT scan of the abdomen and pelvis I will send a respiratory PCR panel as well as a GI PCR panel my concern initially is for an intra-abdominal source given his exam and history of diarrhea. However he is a dialysis patient I will provide him with a single dose of IV vancomycin and await further information. Given his history of back pain and fever I will check an MRI of the lumbosacral spine. I will check a lact ic acid pro calcitonin. He'll be admitted to inpatient status and follow closely. 2. End-stage renal disease on hemodialysis: I did place a consult to nephrology who will see the patient. He has a long history of nonadherence with her, complicated by his history of schizoaffective disorder. Involved as appears be fairly well optimized at this time if anything he appears mildly dry we'll monitor his blood pressure closely 3.Diabetes: Sliding scale insulin renal consistent carb diet. Continue with gabapentin for neuropathy 4.COPD: Patient normally on [place] lived at home he appears to be at his baseline respiratory status at this time 5. Coronary artery disease: The patient is on aspirin and statin beta ila L continue the beta ila with holding parameters 6. Hypertension and hypertensive heart disease: I'll continue atenolol and amlodipine with holding parameters we'll hold hydralazine for the time being and monitor his blood pressure as he is presenting with fever and is concern for possible infection 7. Restless leg syndrome: Continue with Requip daily at bedtime 8. DVT: Continue with Coumadin O check an INR 9. Back pain: Etiology is not immediately clear he has chronic back pain he has noted compression fractures on previous imaging I will provide him with Tylenol and follow the MRI of the lumbosacral spine 10. Homelessness: PFS cons place the patient will benefit from placement 11. Morbid obesity: Complicating care 12. Schizoaffective disorder: Other than Requip which is likely in combination for his restless leg as well he does not appear to be in any active medications for this 13. Anemia of end-stage renal disease: Stable acceptable no intervention needed at this time DVT PROPHYLAXIS: Coumadin DISPOSITION: Admitted to [facility] floor inpatient status Vital Signs Vital Signs Date Time Temp Pulse Resp B/P (MAP) Pulse Ox O2 Delivery O2 Flow Rate FiO2 11/03/18 15:00 99.3 11/03/18 14:30 99 156/81 (106) 96 11/03/18 09:40 26 Room Air Laboratory Data Labs 24H Laboratory Tests 2 11/03/18 10:51: Blood Gas Bicarbonate Standard 23.8, Arterial Blood pH 7.433, Arterial Blood Partial Pressure CO2 35.2, Arterial Blood Partial Pressure O2 94.5, Arterial Blood Total CO2 24.1, Arterial Blood HCO3 23.0, Arterial Blood Base Excess -0.8, Arterial Blood Oxygen Saturation 97.7 11/03/18 11:00: Immature Granulocyte % (Auto) 0.4, White Blood Count 13.0H, Red Blood Count 3.50L, Hemoglobin 11.8L, Hematocrit 36.1L, Mean Corpuscular Volume 103.1H, Mean Corpuscular Hemoglobin 33.7H, Mean Corpuscular Hemoglobin Concent 32.7, Red Cell Distribution Width 15.9H, Platelet Count 194, Neutrophils (%) (Auto) 83.0H, Lymphocytes (%) (Auto) 5.2L, Monocytes (%) (Auto) 11.2H, Eosinophils (%) (Auto) 0.0, Basophils (%) (Auto) 0.2, Neutrophils # (Auto) 10.8H, Lymphocytes # (Auto) 0.7L, Monocytes # (Auto) 1.5H, Eosinophils # (Auto) 0.0, Basophils # (Auto) 0.0, Nucleated Red Blood Cells % (auto) 0.0, Anion Gap 9, Glomerular Filtration Rate 14.6L, Calcium Level 8.6L, Aspartate Amino Transf (AST/SGOT) 21, Alanine Aminotransferase (ALT/SGPT) 27, Alkaline Phosphatase 63, Total Bilirubin 0.6, Direct Bilirubin 0.2, Total Protein 6.4, Albumin 2.8L, Albumin/Globulin Ratio 0.78L, Lipase 226 CBC/BMP Laboratory Tests 11/03/18 11:00 Red Blood Count 3.50 L, Mean Corpuscular Volume 103.1 H, Mean Corpuscular Hemoglobin 33.7 H, Mean Corpuscular Hemoglobin Concent 32.7, Red Cell Distr ibution Width 15.9 H, Neutrophils (%) (Auto) 83.0 H, Lymphocytes (%) (Auto) 5.2 L, Monocytes (%) (Auto) 11.2 H, Eosinophils (%) (Auto) 0.0, Basophils (%) (Auto) 0.2, Neutrophils # (Auto) 10.8 H, Lymphocytes # (Auto) 0.7 L, Monocytes # (Auto) 1.5 H, Eosinophils # (Auto) 0.0, Basophils # (Auto) 0.0 Home Medications Scheduled Acetaminophen (Acetaminophen) 500 Mg Tablet, 1 TAB PO Q4H for fever Amlodipine Besylate (Amlodipine Besylate) 10 Mg Tab, 10 MG PO DAILY Ascorbic Acid (Vitamin C) 500 Mg Capsule, 1 CAP PO DAILY Aspirin (Aspirin EC) 81 Mg Tab, 81 MG PO DAILY Atenolol (Atenolol) 50 Mg Tab, 50 MG PO DAILY Benztropine Mesylate (Benztropine Mesylate) 0.5 Mg Tablet, 1 TAB PO DAILY Clotrimazole (Clotrimazole) 1% 30GM Cream..g., 1 APLCT TOP QAM-PM apply to affected area(s) Ergocalciferol (Vitamin D2) (Vitamin D2) 50,000 Unit Capsule, 1 CAP PO Q7D Ferric Citrate (Auryxia) 210 Mg Tablet, 2 TAB PO TID Fluticasone/Vilanterol (Breo Ellipta 100-25 Mcg INH) 1 Each Blst.w.dev, 1 PUFF PO DAILY Gabapentin (Gabapentin) 100 Mg Cap, 100 MG PO TID Hydralazine HCl (Hydralazine HCl) 25 Mg Tablet, 25 MG PO TID Insulin Detemir (Levemir) 1 Units/0.01 Ml Susp, 55 UNITS SC DAILY Insulin Human Lispro (Novolog) 100 U/Ml Inj, 10 UNITS SC BID MORNING AND AFTERNOON Ropinirole HCl (Ropinirole HCl) 0.25 Mg Tablet, 0.25 MG PO QHS Simvastatin (Simvastatin) 20 Mg Tablet, 20 MG PO DAILY Warfarin Sodium (Warfarin Sodium) 2 Mg Tablet, 1 TAB PO DAILY Ziprasidone HCl (Ziprasidone HCl) 80 Mg Capsule, 1 CAP PO BID with food Scheduled PRN Nitroglycerin (Nitrostat) 0.4 Mg Subl, 0.4 MG SL NITRO PRN for CHEST PAIN Allergies Coded Allergies: bupivacaine (Verified Adverse Reaction, Severe, induces Brugada syndrome, 06/14/18) A-FIB/CHADSVASC A-FIB History Current/History of A-Fib/PAF?: SMITHA Matthews MD Nov 03, 2018 16:06
[2018-11-03 17:45] VITALS: BP 170/80
[2018-11-03] MEDS: ACETAMINOPHEN 500 MG TAB PO PRN (18:16)
[2018-11-03] MEDS: atenoloL 50 MG TAB PO SCH (18:19)
[2018-11-03] MEDS: ASPIRIN 81 MG ENTERIC TAB PO SCH (18:19)
[2018-11-03] MEDS: amLODIPine 10 MG TAB PO SCH (18:19)
[2018-11-03] MEDS: ASCORBIC ACID 500 MG TAB PO SCH (18:19)
[2018-11-03] MEDS: ATORVASTATIN 20 MG TAB PO SCH (18:19)
[2018-11-03] MEDS: HumaLOG INSULIN (NovoLOG) PER UNIT SC SCH ×2 (18:20→20:27)
[2018-11-03] MEDS: WARFARIN SOD 2 MG TAB PO SCH (18:20)
[2018-11-03 18:24] LABS: C REACTIVE PROTEIN QUANTITATIV 7.44 MG/DL (0.00-0.30); THYROID STIMULATING HORMONE 0.808 uIU/ML (0.358-3.740)
[2018-11-03 18:28] LABS: ERYTHROCYTE SEDIMENTATION RATE 84 mm/hr (0-20)
--- NOTE | 2018-11-03 20:14 | ECGEPIP ---
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
[2018-11-03] MEDS: rOPINIRole 0.25 MG TAB(REQUIP) PO SCH (20:40)
[2018-11-03] MEDS: PIPERACILLIN/TAZOBACTAM SOD 2.25 GM in D5W MINI-BAG PLUS 50 ML IV SCH (20:40)
--- NOTE | 2018-11-03 20:57 | REPVR ---
EXAM: CT Head Without Contrast EXAM DATE/TIME: 11/03/2018 7:52 PM CLINICAL HISTORY: 68 years old, male; Altered mental status/memory loss; Confusion or disorientation; Additional info: Acute confusion TECHNIQUE: Imaging protocol: Computed tomography images of the head without contrast. Radiation optimization: All CT scans at this facility use at least one of these dose optimization techniques: automated exposure control; mA and/or kV adjustment per patient size (includes targeted exams where dose is matched to clinical indication); or iterative reconstruction. COMPARISON: No relevant prior studies available. FINDINGS: Brain: There is white matter lucency indicating chronic microvascular disease. There is no acute infarct. There is no hemorrhage or extra-axial collection. There is no mass. Ventricles: Normal. No ventriculomegaly. Bones/joints: Unremarkable. No acute fracture. Sinuses: Visualized sinuses are unremarkable. No fluid levels. Mastoid air cells: Visualized mastoid air cells are well aerated. No mastoid effusion. Soft tissues: Unremarkable. Vasculature: There are vertebral and carotid artery calcifications. IMPRESSION: 1. There is chronic microvascular disease. 2. There is no acute intracranial lesion or injury. Electronically signed by: Rashad Willis On 11/03/2018 20:56:59 PM
[2018-11-03] MEDS ORDERED: HEPARIN SOD (PORCINE) 5000 UNITS/ML VIAL SC SCH (21:00)
[2018-11-03] MEDS: NYSTATIN 100,000 UNITS/GM TOPICAL PWD 15 GM TOP SCH (21:45)
[2018-11-03 22:00] VITALS: BP 146/71
[2018-11-04 06:00] VITALS: BP 148/70
[2018-11-04] MEDS: ASPIRIN 81 MG ENTERIC TAB PO SCH (06:09)
[2018-11-04] MEDS: ASCORBIC ACID 500 MG TAB PO SCH (06:09)
[2018-11-04] MEDS: ATORVASTATIN 20 MG TAB PO SCH (06:10)
[2018-11-04] MEDS: atenoloL 50 MG TAB PO SCH (06:10)
[2018-11-04] MEDS: ACETAMINOPHEN 500 MG TAB PO PRN ×3 (06:10→20:33)
[2018-11-04] MEDS: GABAPENTIN 100 MG CAP PO SCH ×3 (06:10→20:33)
[2018-11-04] MEDS: amLODIPine 10 MG TAB PO SCH (06:10)
[2018-11-04 06:43] LABS: HEMATOCRIT 33.6 % (42.0-52.0); HEMOGLOBIN 10.9 g/dl (13.5-17.5); MEAN CORPUSCULAR HEMOGLOBIN 32.8 pg (27.0-33.0); MEAN CORPUSCULAR HGB CONC 32.4 g/dl (32.0-36.5); MEAN CORPUSCULAR VOLUME 101.2 fl (80.0-96.0); PLATELET COUNT, AUTOMATED 188 10^3/uL (150-450); RED BLOOD COUNT 3.32 10^6/uL (4.30-6.10)
[2018-11-04 06:55] LABS: INR 1.22; PROTHROMBIN TIME 15.1 SECONDS (11.8-14.0)
[2018-11-04 07:04] LABS: CALCIUM LEVEL 8.4 MG/DL (8.8-10.2); GLOMERULAR FILTRATION RATE 12.3 (>49); POTASSIUM SERUM 4.1 MEQ/L (3.5-5.1); VANCOMYCIN RANDOM 13.3 UG/ML
[2018-11-04] MEDS ORDERED: VANCOMYCIN HCL 1,000 MG, VIAL MATE ADAPTER 1 EACH in D5W 250 ML IV SCH (08:00)
[2018-11-04] MEDS: PIPERACILLIN/TAZOBACTAM SOD 2.25 GM in D5W MINI-BAG PLUS 50 ML IV SCH ×2 (08:29→20:32)
[2018-11-04] MEDS: NYSTATIN 100,000 UNITS/GM TOPICAL PWD 15 GM TOP SCH ×2 (08:29→20:34)
[2018-11-04] MEDS: HumaLOG INSULIN (NovoLOG) PER UNIT SC SCH ×4 (08:30→20:34)
--- NOTE | 2018-11-04 08:39 | PHACANCOPD ---
PHARMACY VANCOMYCIN DOSING Pt Demographics Demographics Patient Age:68 , Weight:99.090 , Gender: male Adjusted Body Weight Date: 11/04/18, Adjusted Body Weight: Kg Events Past 24 Hours Events Past 24 Hours: YES: Dialysis, Change in CrCl, Fever, Elevation in WBC; NO: Diuretic Therapy, Pending Diagnostics, Pending Procedures, Other Vancomycin Vancomycin Target Ranges: 15-20 mcg/ml Vancomycin Load Y/N: Yes Load Dose Date Time Vancomycin Load Dose: 1G Date: 11/04/18 Time: Vancomycin Dose Date: 11/04/18. Current Vancomycin Dose: Intermittent Dosing?: No Labs Labs Vital Signs Label Value Date Time Patient Temperature 101.4 degrees F 11/04/18 0600 Temperature Source Oral 11/04/18 0600 Patient Temperature 100.1 degrees F 11/03/18 2200 Temperature Source Oral 11/03/18 2200 Patient Temperature 100.7 degrees F 11/03/18 194 Temperature Source Temporal 11/03/181942 Item Value Date Time White Blood Count 12.0 10^3/uL H 11/04/18 0607 White Blood Count 13.0 10^3/uL H 11/03/18 1100 Random Vancomycin Level 13.3 UG/ML 11/04/18 0607 Creatinine 5.00 MG/DL H 11/04/18 0607 Creatinine 4.32 MG/DL H # 11/03/18 1100 Micro Microbiology 11/03/18 Blood Culture, Received Pending 11/03/18 Blood Culture, Received Pending 11/03/18 MRSA Screen, Received Pending Creatinine Clearance Date:11/04/18. Creatinine Clearance: . Assessment and Plan Maintaining Current Dose?: No Reason for dose change: Trough too low Pharmacist Note Pharmacist Note Date: 11/04/18. Pharmacist note: Pt. is a 68 year old male with ESRD non- compliant with HD. At last outpatient HD session was found to be febrile. WBC are elevated. Pt was given Vanco 1G IV LD yesterday. Normal HD schedule is [facility] however pt is refusing dialysis today. Random this AM resulted at 13.3mcg/ml which is subtherapeutic. I have ordered the patient to receive another 500mg this AM. Should the patient change his mind and receive dialysis today he should get another 1G post dialysis. We will continue to monitor and adjust dose as needed. JULIANNA CALLE PHARMACY Nov 04, 2018 08:39
[2018-11-04] MEDS ORDERED: HEPARIN 1,000 UNITS/ML 10ML VIAL (FOR RADIOLOGY& DIALYSIS ONLY) XX ONE (09:30)
[2018-11-04] MEDS ORDERED: HEPARIN 1,000 UNITS/ML 10ML VIAL (FOR RADIOLOGY& DIALYSIS ONLY) IV ONE (09:30)
[2018-11-04] MEDS ORDERED: VANCOMYCIN HCL 500 MG in D5W MINI-BAG PLUS 100 ML IV ONE (10:00)
[2018-11-04 14:00] VITALS: BP 155/72
[2018-11-04 14:35] VITALS: BP 155/72
[2018-11-04] MEDS: WARFARIN SOD 2 MG TAB PO SCH (15:59)
[2018-11-04] MEDS: **VANCO AFTER HD** MISC XX SCH (16:00)
--- NOTE | 2018-11-04 17:12 | IPNPDOC ---
Date Seen The patient was seen on 11/04/18. Progress Note SUBJECTIVE: Patient presented for low back pain and fever. Patient continues to complain of back pain has not improved. He rates his pain in his low back a 4 out of 10 and has relief when he gets Tylenol and if he does not move. He has no other complaints though. He denies chest pain, shortness breath, nausea, vomiting, OBJECTIVE PHYSICAL EXAMINATION: VITAL SIGNS: Please see below. GENERAL: Disheveled morbidly obese malodorous man laying in the hospital bed on the left side awake alert oriented speaking in complete sentences but muffled due to poor dentition HEENT: Dry mucous membranes no elevation in CVP CARDIOVASCULAR: S1 S2 regular no additional heart sounds appreciated. RESPIRATORY: Clear to auscultation anteriorly & right posterior lung rhonchi is appreciated ABDOMINAL: Bowel sounds present abdomen soft but morbidly obese abdomen. slightly tender to light palpation, and has an umbilical hernia visible. EXTREMITIES: No clubbing cyanosis or edema evidence of chronic venous stasis in the left lower extremity. Right [id number] amputation and transmetatarsal amputation on the left NEUROLOGICAL: Spontaneously moves all 4 extremities cranial 2 through 12 grossly intact no gross focal deficits appreciated PSYCHOLOGICAL: At baseline LABORATORY DATA, MICROBIOLOGY: Please see below. IMAGING STUDIES: Thoracic spine x-ray: There is moderate disc space narrowing at every level. Cross-table lateral views were obtained. Grade 1 thoracic spine compression fractures are suspected at multiple levels difficult to evaluate on this limited exam. There is a double lumen central venous catheter in place, the tip of which is in the region of the superior vena cava. Lumbar spine: Chronic changes Chest x-ray:No acute disease. Central venous tunnel catheter in place. Chest CT:Limited examination showing no acute disease CT abdomen and pelvis: Markedly limited exam showing no significant change from the prior exam. There is cholelithiasis, status quo. Renal cysts and renovascular calcifications, status quo. Arterial aneurysms as described above, status quo. Other findings as described above. Lumbar spine MRI: Early discitis on L3-L4 disc levels. ASSESSMENT AND PLAN: This is a 68-year-old man with end-stage renal disease presenting with fever. PROBLEMS: Early discitis on L3-L4 -blood cultures x2 positive for gram positive cocci -Continue with vancomycin and Zosyn and de-escalate pending cultures. Antibiotics will be continued for 6 weeks. - Consider ID consultation if needed End-stage renal disease on hemodialysis -history of nonadherence -Tuesday//Tuesday -Consulted nephrology Diabetes: -ISS and gabapentin COPD -Breo at home -padmini Coronary artery disease -c/w aspirin, statin atenolol with holding parameters Hypertension and hypertensive heart disease -c/w atenolol and amlodipine with holding parameters -continue to hold hydralazine and monitor his blood pressure Restless leg syndrome -c/w Requip daily at bedtime DVT -c/w Coumadin Homelessness PFS cons - benefit from placement Morbid obesity -Complicating care Schizoaffective disorder - does not appear to be in any active medications Anemia of end-stage renal disease Stable DVT PROPHYLAXIS: Coumadin I saw and evaluated the patient. I agree with the findings and plan of care as documented in the above note VS, I&O, 24H, Fishbone Vital Signs/I&O Vital Signs Date Time Temp Pulse Resp B/P (MAP) Pulse Ox O2 Delivery O2 Flow Rate FiO2 11/04/18 15:41 99.3 84 24 91 2.0 11/04/18 14:00 155/72 (99) 11/03/18 09:40 Room Air I&O- Last 24 Hours up to 6 AM 11/04/18 05:59 Intake Total 120 ml Output Total 340 ml Balance -220 ml Laboratory Data 24H LABS Laboratory Tests 2 11/03/18 18:10: Bedside Glucose (Misc Panel) 238H 11/03/18 18:36: Lactic Acid Level 1.4, Procalcitonin 1.61 11/03/18 20:24: Bedside Glucose (Misc Panel) 190H 11/04/18 05:52: Bedside Glucose (Misc Panel) 172H 11/04/18 06:07: Nucleated Red Blood Cells % (auto) 0.0, Prothrombin Time 15.1H, Prothromb Time International Ratio 1.22, Anion Gap 10, Glomerular Filtration Rate 12.3L, Blood Urea Nitrogen 36H, Creatinine 5.00H, Sodium Level 137, Potassium Level 4.1, Chloride Level 102, Carbon Dioxide Level 25, Calcium Level 8.4L, Random V ancomycin Level 13.3 11/04/18 15:42: Bedside Glucose (Misc Panel) 159H CBC/BMP Laboratory Tests 11/04/18 06:07 Red Blood Count 3.32 L, Mean Corpuscular Volume 101.2 H, Mean Corpuscular Hemoglobin 32.8, Mean Corpuscular Hemoglobin Concent 32.4, Red Cell Distribution Width 15.7 H, Calcium Level 8.4 L Microbiology Microbiology 11/04/18 Blood Culture, Received Pending 11/04/18 Blood Culture, Received Pending 11/03/18 Blood Culture - Preliminary, Resulted 11/03/18 Blood Culture - Preliminary, Resulted 11/03/18 MRSA Screen, Received Pending VIRGINIA MARTINEZ DO Nov 04, 2018 17:12 SMITHA AYALA MD Nov 05, 2018 14:15
[2018-11-04] MEDS ORDERED: IPRATROPIUM 0.5MG/ALBUTEROL 2.5MG INH SOL UD 3ML (DUONEB)(J7620) NEB PRN (17:15)
[2018-11-04] MEDS: IPRATROPIUM 0.5MG/ALBUTEROL 2.5MG INH SOL UD 3ML (DUONEB)(J7620) NEB SCH (18:08)
[2018-11-04] MEDS: rOPINIRole 0.25 MG TAB(REQUIP) PO SCH (20:33)
[2018-11-04 22:00] VITALS: BP 155/77
[2018-11-05] MEDS: IPRATROPIUM 0.5MG/ALBUTEROL 2.5MG INH SOL UD 3ML (DUONEB)(J7620) NEB SCH ×4 (02:00→19:44)
[2018-11-05] MEDS: ACETAMINOPHEN 500 MG TAB PO PRN ×3 (04:46→20:28)
[2018-11-05 06:00] VITALS: BP 158/75
[2018-11-05 07:11] LABS: HEMATOCRIT 32.4 % (42.0-52.0); HEMOGLOBIN 10.6 g/dl (13.5-17.5); MEAN CORPUSCULAR HEMOGLOBIN 33.9 pg (27.0-33.0); MEAN CORPUSCULAR HGB CONC 32.7 g/dl (32.0-36.5); MEAN CORPUSCULAR VOLUME 103.5 fl (80.0-96.0); PLATELET COUNT, AUTOMATED 157 10^3/uL (150-450); RED BLOOD COUNT 3.13 10^6/uL (4.30-6.10); WHITE BLOOD COUNT 11.1 10^3/uL (4.0-10.0)
[2018-11-05 07:22] LABS: INR 1.19; PROTHROMBIN TIME 14.8 SECONDS (11.8-14.0)
[2018-11-05 07:42] LABS: CALCIUM LEVEL 8.9 MG/DL (8.8-10.2); CREATININE FOR GFR 4.21 MG/DL (0.70-1.30); GLOMERULAR FILTRATION RATE 15.1 (>49); POTASSIUM SERUM 3.9 MEQ/L (3.5-5.1); VANCOMYCIN RANDOM 19.5 UG/ML
--- NOTE | 2018-11-05 07:46 | PHACANCOPD ---
PHARMACY VANCOMYCIN DOSING Pt Demographics Demographics Patient Age:68 , Weight:97.300 , Gender: male Adjusted Body Weight Date: 11/04/18, Adjusted Body Weight: Kg Events Past 24 Hours Events Past 24 Hours: YES: Dialysis; NO: Diuretic Therapy, Change in CrCl, Fever, Elevation in WBC, Pending Diagnostics, Pending Procedures, Other Vancomycin Vancomycin Target Ranges: 15-20 mcg/ml Vancomycin Load Y/N: Yes Load Dose Date Time Vancomycin Load Dose: 1G Date: 11/04/18 Time: Vancomycin Dose Date: 11/04/18. Current Vancomycin Dose: Intermittent Dosing?: No Labs Labs Vital Signs Label Value Date Time Patient Temperature 98.8 degrees F 11/04/18 2200 Temperature Source Oral 11/04/18 2200 Patient Temperature 99.3 degrees F 11/04/18 1541 Temperature Source Oral 11/04/18 1541 Patient Temperature 100.7 degrees F 11/04/18 1400 Temperature Source Oral 11/04/18 1400 Item Value Date Time White Blood Count 12.0 10^3/uL H 11/04/18 0607 White Blood Count 11.1 10^3/uL H 11/05/18 0657 White Blood Count 13.0 10^3/uL H 11/03/18 1100 Creatinine 4.21 MG/DL H 11/05/18 0657 Creatinine 5.00 MG/DL H 11/04/18 0607 Creatinine 4.32 MG/DL H # 11/03/18 1100 Micro Microbiology 11/04/18 Blood Culture, Received Pending 11/04/18 Blood Culture, Received Pending 11/03/18 Blood Culture - Preliminary, Resulted 11/03/18 Blood Culture - Preliminary, Resulted 11/03/18 MRSA Screen, Received Pending Creatinine Clearance Date:11/04/18. Creatinine Clearance: . Assessment and Plan Maintaining Current Dose?: Yes Reason for dose change: No Dose Change Pharmacist Note Pharmacist Note 11/05/18: Random this AM resulted at 19.5mcg/ml. This pt will not require an additional dose. We will continue to monitor and adjust dose as needed. Date: 11/04/18. Pharmacist note: Pt. is a 68 year old male with ESRD non-com pliant with HD. At last outpatient HD session was found to be febrile. WBC are elevated. Pt was given Vanco 1G IV LD yesterday. Normal HD schedule is [facility] however pt is refusing dialysis today. Random this AM resulted at 13.3mcg/ml which is subtherapeutic. I have ordered the patient to receive another 500mg this AM. Should the patient change his mind and receive dialysis today he should get another 1G post dialysis. We will continue to monitor and adjust dose as needed. JULIANNA CALLE PHARMACY Nov 05, 2018 07:46
--- NOTE | 2018-11-05 09:15 | REP ---
MRI LUMBAR SPINE WITHOUT CONTRAST: 11/04/2018. Clinical history: Acute on chronic severe low back pain, with fever. Comparison: CT abdomen pelvis, lumbar x-rays 11/03/2018. Findings: Standard protocol followed. The sagittal images show normal gentle lordosis maintained. Vertebral body heights maintained. There are discogenic endplate changes at L3-4 and L2-3. There is loss of disc water signal and disc height at L3-4. Loss of disc water signal at all the other lumbar levels with loss of height only L2-3. Conus terminates at T12-L1. The T12-L1 and L1-2 disc levels show no significant bulge herniation and no spinal or foraminal stenosis. L2-L3 the broad-based disc bulge not causing central canal stenosis. The foramina show adequate perineural fat around the L2 roots. At L3-4 some mild broad-based disc bulge is noted centrally. This abuts the L4 nerve root in the central canal. There is some lateral recess stenosis. There is a left lateral disc protrusion into the foramen. There is compression of the left L3 nerve root at that level. The right L3 nerve root was intact. There is some ligamentum flavum and facet hypertrophy. However, at the lateral aspect of the L3-4 disc space away from the neural arch, there is some subtle increased T2 signal. This is not associated with any destruction of the endplates. However there is asymmetric appearance of the left psoas muscle and suspicion raised of very early diskitis. Some edema on the T2 sequences in the medial and anterior margin of the psoas at the disc level and just below is noted. At L4-L5 some mild broad-based disc bulge flattening the ventral thecal sac. Ligamentum and facet hypertrophy noted L5 nerve roots not displaced by the bulge. Within the foramina the nerve roots show decreased perineural fat without nerve root compression. L5-S1 broad-based disc bulge flattening ventral thecal sac but not abutting the S1 nerve roots or displacing them. However, marginal osteophytes, disc bulge and facet arthropathy combining to cause foraminal encroachment on the right L5 nerve root with compression, the L5 nerve root on the left was normal. Impression: 1. There are subtle changes in the lateral aspect of the L3-4 disc level with some hyperintense signal on T2 with extension into the adjacent psoas muscle with intramuscular T2 edema present and I suspect this represents early diskitis and paraspinal inflammatory process. Does not clearly represent abscess at this time. It may be early paraspinal phlegmon but does not represent epidural abscess. It does not involve the neural arch. However at this level, posterior to the suspected paraspinal inflammatory process, there is a left paracentral disc bulge and left lateral disc protrusion combined with facet arthritis and causing L3 nerve root compression in the foramen. The right L3 root is intact. 2. The L4-5 disc level shows disc bulge without central canal stenosis with combined factors causing some foraminal encroachment and loss of the perineural fat without L4 nerve root compression. 3. The L5-S1 disc level shows disc bulge without spinal stenosis but there is foraminal encroachment by combined factors compressing the right L5 nerve root. 4. The other disc levels show no significant finding. Electronically Signed by Tristian June MD 11/05/2018 07:41 A
[2018-11-05] MEDS: HumaLOG INSULIN (NovoLOG) PER UNIT SC SCH ×4 (09:48→20:30)
[2018-11-05] MEDS: ASCORBIC ACID 500 MG TAB PO SCH (09:49)
[2018-11-05] MEDS: ASPIRIN 81 MG ENTERIC TAB PO SCH (09:49)
[2018-11-05] MEDS: ATORVASTATIN 20 MG TAB PO SCH (09:49)
[2018-11-05] MEDS: PIPERACILLIN/TAZOBACTAM SOD 2.25 GM in D5W MINI-BAG PLUS 50 ML IV SCH ×2 (09:49→20:28)
[2018-11-05] MEDS: GABAPENTIN 100 MG CAP PO SCH ×3 (09:49→20:27)
[2018-11-05] MEDS: amLODIPine 10 MG TAB PO SCH (09:50)
[2018-11-05] MEDS: NYSTATIN 100,000 UNITS/GM TOPICAL PWD 15 GM TOP SCH ×2 (09:50→20:30)
[2018-11-05] MEDS: atenoloL 50 MG TAB PO SCH (09:50)
--- NOTE | 2018-11-05 11:51 | CR ---
DATE OF CONSULTATION: 11/04/2018 CONSULTATION FOR: Fanny Gonzalez MD REASON FOR CONSULTATION: To assist in the management of end-stage renal disease. HISTORY OF PRESENT ILLNESS: Mr. Cisneros is a 68-year-old gentleman with known history of diabetes, hypertension, end-stage renal disease, peripheral vascular disease, schizoaffective disorder and coronary artery disease. He was admitted to [facility] last evening due to low back pain and incontinence of stools. He reported that he is being evicted from his apartment due to incontinence of stools all over his apartment. The patient is due for dialysis today and nephrology consultation was requested. He was found to be febrile on admission and blood cultures have already come back positive for gram positive cocci. He does have a Perma-Cath for dialysis without any signs of infection or drainage at the exit site. The patient has declined AV fistula. PAST MEDICAL HISTORY (Significant for): 1. Type 2 diabetes. 2. Diastolic congestive heart failure. 3. Hypertension. 4. Peripheral vascular disease. 5. Coronary artery disease. 6. History of deep vein thrombosis (DVT) in the past. 7. History of chronic obstructive pulmonary disease (COPD). 8. End-stage renal disease. 9. History of schizoaffective disorder. 10. Restless leg syndrome. 11. Anemia of end-stage renal disease. 12. Hypertensive heart disease. PAST SURGICAL HISTORY (Significant for:) Hemodialysis catheter right internal jugular vein, left transmetatarsal amputation and right [id number] amputation. PERSONAL AND SOCIAL HISTORY: The patient lives alone. He is being evicted from his apartment. He is an active smoker and denies any alcohol or illicit drug use. FAMILY HISTORY: Negative for end-stage renal disease. MEDICATIONS: His home medications include amlodipine 10 mg daily, vitamin C 500 mg daily, aspirin 81 mg daily, atenolol 50 mg daily, benztropine 0.5 mg 1 tablet daily, vitamin D 50,000 units once a week, Auryxia 2 tablets t.i.d. with meals, gabapentin 100 mg three times a day, hydralazine 25 mg three times a day, Levemir insulin 55 units daily, Humalog insulin 10 units twice a day, Requip 0.25 mg at bedtime, simvastatin 20 mg daily, Coumadin 2 mg daily and ziprasidone 80 mg twice a day. ALLERGIES: The patient has reported allergy to BUPIVACAINE. REVIEW OF SYSTEMS: The patient had fever and back pain on admission. Blood cultures are positive for gram-positive cocci. He is just not feeling well and still has complaint of back pain. Ears, nose and throat are unremarkable. Cardiovascular system negative for dyspnea, chest pain or leg edema. Respiratory system is negative for hemoptysis or pleuritic type of chest pain. GI system negative for vomiting or diarrhea, but he does have fecal incontinence. Neurological system is significant for peripheral neuropathy. He denies any seizures. Hematological system significant for chronic anticoagulation due to prior deep vein thrombosis (DVT). Psychosocial system is significant for schizoaffective disorder and chronic noncompliance. Endocrine system is significant for secondary hyperparathyroidism and poorly controlled diabetes. Musculoskeletal system is significant for prior amputation of his left foot and right leg. PHYSICAL EXAMINATION: The patient is awake and somewhat restless in the bed. Temperature was 101.4 degrees Fahrenheit and heart rate 80 per minute. Respiratory rate 20 per minute and blood pressure 148/70 mmHg. Oxygen saturation is 90%. Head is atraumatic. There is no oral thrush or ulcers. Neck is supple and without jugular venous distention (JVD) or thyroid enlargement. Heart sounds are regular and there is no pericardial friction rub. Lungs sound clear to auscultation. Abdomen: Soft and nontender. Bowel sounds are present. On right upper chest, he has a Perma-Cath without any drainage or signs of infection at the exit site. Extremities have no cyanosis or clubbing. His leg stump is healed very well. There is no peripheral edema. Neurologically, he is at his baseline mentation. LABORATORY DATA: His blood cultures are positive for gram-positive cocci in clusters. WBC count is 12.0, hemoglobin 10.9 and hematocrit 33.6. Platelets 188. Sodium 137, potassium 4.1, CO2 25, BUN 36 and creatinine 5.0. His lactic acid level was 1.4 yesterday. The patient also had a CT scan of chest, abdomen and pelvis which did not show any acute infiltrate or effusion. PROBLEMS: 1. End-stage renal disease. The patient is regularly dialyzed on Tuesday, and Tuesday schedule. He will be dialyzed this afternoon. The patient had refused dialysis this morning; however, I have discussed with him now and explained to him about need for dialysis and the importance for compliance with it. He did consent and will this afternoon. He will be dialyzed for 3 hours. His volume status is well-compensated and electrolytes are within normal range. 2. Bacteremia. I am concerned about the possibility of catheter related infection. The patient is being treated with Zosyn and vancomycin. He should receive vancomycin 1 gram after each dialysis. If his fever does not improve within 24 hours, then we will consider to remove his Perma-Cath. 3. Hypertension. Blood pressure is reasonably well-controlled. At this point, we will continue with his chronic antihypertensive meds. 4. Anemia. His anemia is mild and stable. Thank you for involving me in the care of Mr. Cisneros. I will follow him along with you.
--- NOTE | 2018-11-05 13:23 | IPNPDOC ---
Date Seen The patient was seen on 11/05/18. Progress Note SUBJECTIVE: Patient tells me that his back pain is actually better today he is able to move more so. Otherwise he tells me he is tired and otherwise patient denies chest pain, shortness breath, nausea, vomiting, OBJECTIVE PHYSICAL EXAMINATION: VITAL SIGNS: Please see below. GENERAL: Disheveled morbidly obese malodorous man laying in bed awake alert oriented speaking in complete sentences no acute distress HEENT: Dry mucous membranes no elevation in CVP CARDIOVASCULAR: S1 S2 regular no additional heart sounds appreciated. RESPIRATORY: Clear to auscultation bilaterally. Patient does not cooperate with examination of his back ABDOMINAL: Bowel sounds present abdomen soft and nontender EXTREMITIES: No clubbing cyanosis or edema, evidence of chronic venous stasis in the left lower extremity status post AKA on the right transmetatarsal amputation on the left NEUROLOGICAL: Spontaneously moves all 4 extremities cranial 2 through 12 grossly intact no gross focal deficits appreciated PSYCHOLOGICAL: At baseline as per review of previous documentation LABORATORY DATA: See below. MICROBIOLOGY: Please see below. IMAGING: Thoracic spine x-ray:There is moderate disc space narrowing at every level. Cross-table lateral views were obtained. Grade 1 thoracic spine compression fractures are suspected at multiple levels difficult to evaluate on this limited exam. There is a double lumen central venous catheter in place, the tip of which is in the region of the superior vena cava. Lumbar spine:Chronic changes Chest x-ray:No acute disease. Central venous tunnel catheter in place. Chest CT:Limited examination showing no acute disease with CT abdomen and pelvis: Markedly limited exam showing no significant change from the prior exam. There is cholelithiasis, status quo. Renal cysts and renovascular calcifications, status quo. Arterial aneurysms as described in report, status quo. Other findings as described above. Head CT:1. There is chronic microvascular disease. 2. There is no acute intracranial lesion or injury. Lumbar spine MRI:1. There are subtle changes in the lateral aspect of the L3-4 disc level with some hyperintense signal on T2 with extension into the adjacent psoas muscle with intramuscular T2 edema present and I suspect this represents early diskitis and paraspinal inflammatory process. Does not clearly represent abscess at this time. It may be early paraspinal phlegmon but does not represent epidural abscess. It does not involve the neural arch. However at this level, posterior to the suspected paraspinal inflammatory process, there is a left paracentral disc bulge and left lateral disc protrusion combined with facet arthritis and causing L3 nerve root compression in the foramen. The right L3 root is intact. 2. The L4-5 disc level shows disc bulge without central canal stenosis with combined factors causing some foraminal encroachment and loss of the perineural fat without L4 nerve root compression. 3. The L5-S1 disc level shows disc bulge without spinal stenosis but there is foraminal encroachment by combined factors compressing the right L5 nerve root. 4. The other disc levels show no significant finding. ASSESSMENT & PLAN: This is a 68-year-old man with end-stage renal disease presenting with fever and gram-positive bacteremia. PROBLEMS: 1. Fever: Given his presentation there is concern for staph aureus bacteremia related to a tunneled hemodialysis catheter. He has some evidence of discitis and has improved on antibiotics but still remains febrile. I think he would benefit from vascular surgery consultation for removal of catheter and placement of a temporary catheter until he is able to clear his bacteremia, I will check an echocardiogram to rule out any valvular involvement. Would likely need infectious disease consultation 2. End-stage renal disease on hemodialysis:nephrology is greatly appreciated. He has a long history of nonadherence with her, complicated by his history of schizoaffective disorder, volume status appears be fairly well optimized at this time if anything he appears mildly dry we'll monitor his blood pressure closely 3.Diabetes: Sliding scale insulin renal consistent carb diet. Continue with gabapentin for neuropathy 4.COPD: Patient normally on off formulary inhalers at home he appears to be at his baseline respiratory status at this time we'll provided with DuoNeb's as needed 5. Coronary artery disease: The patient is on aspirin and statin beta ila which is being continued with holding parameters 6. Hypertension and hypertensive heart disease: I'll continue atenolol and amlodipine with holding parameters and monitor his blood pressure restart other home medications as needed 7. Restless leg syndrome: Continue with Requip daily at bedtime 8. DVT: Continue with Coumadin and check INR tomorrow after 2 doses I suspect he had been non-compliant with therapy at home if his INR is not elevated tomorrow consider increasing dose. 9. Back pain: Acute on chronic likely related to discitis as outlined above 10. Homelessness: PFS cons place the patient will benefit from placement 11. Morbid obesity: Complicating care 12. Schizoaffective disorder: Other than Requip which is likely in combination for his restless leg as well he does not appear to be in any active medications for this I suspect long-term he would benefit from close behavioral health follow-up outpatient 13. Anemia of end-stage renal disease: Stable acceptable no intervention needed at this time DVT PROPHYLAXIS: Coumadin, teds and sequentials while subtherapeutic DISPOSITION: Pending vascular and infectious disease consultations as well as PFS VS, I&O, 24H, Fishbone Vital Signs/I&O Vital Signs Date Time Temp Pulse Resp B/P (MAP) Pulse Ox O2 Delivery O2 Flow Rate FiO2 11/05/18 09:50 71 158/75 11/05/18 06:00 98.6 20 93 2.0 11/03/18 09:40 Room Air I&O- Last 24 Hours up to 6 AM 11/05/18 06:00 Intake Total 1315 ml Output Total 1000 ml Balance 315 ml Laboratory Data 24H LABS Laboratory Tests 2 11/04/18 15:42: Bedside Glucose (Misc Panel) 159H 11/04/18 17:05: Bedside Glucose (Misc Panel) 220H 11/04/18 20:07: Bedside Glucose (Misc Panel) 174H 11/05/18 06:57: Nucleated Red Blood Cells % (auto) 0.0, Prothrombin Time 14.8H, Prothromb Time International Ratio 1.19, Anion Gap 7L, Glomerular Filtration Rate 15.1L, Blood Urea Nitrogen 30H, Creatinine 4.21H, Sodium Level 137, Potassium Level 3.9, Chloride Level 102, Carbon Dioxide Level 28, Calcium Level 8.9, Random Vancomycin Level 19.5 11/05/18 11:28: Bedside Glucose (Misc Panel) 236H CBC/BMP Laboratory Tests 11/05/18 06:57 Red Blood Count 3.13 L, Mean Corpuscular Volume 103.5 H, Mean Corpuscular Hemoglobin 33.9 H, Mean Corpuscular Hemoglobin Concent 32.7, Red Cell Distribution Width 15.5 H, Calcium Level 8.9 Microbiology Microbiology 11/04/18 Blood Culture, Received Pending 11/04/18 Blood Culture - Preliminary, Resulted No growth after 24 hours . All specim... 11/03/18 Blood Culture - Preliminary, Resulted 8/16/19 Blood Culture - Preliminary, Resulted 11/03/18 MRSA Screen - Final, Complete SMITHA AYALA MD Nov 05, 2018 13:23
[2018-11-05 14:00] VITALS: BP 141/60
[2018-11-05] MEDS: **VANCO AFTER HD** MISC XX SCH (15:51)
[2018-11-05] MEDS: WARFARIN SOD 2 MG TAB PO SCH (16:43)
[2018-11-05 20:25] VITALS: BP 152/61
[2018-11-05] MEDS: rOPINIRole 0.25 MG TAB(REQUIP) PO SCH (20:27)
[2018-11-06] MEDS: IPRATROPIUM 0.5MG/ALBUTEROL 2.5MG INH SOL UD 3ML (DUONEB)(J7620) NEB SCH ×5 (00:09→23:05)
[2018-11-06] MEDS: ACETAMINOPHEN 500 MG TAB PO PRN ×6 (00:34→23:01)
[2018-11-06 05:15] VITALS: BP 154/66
[2018-11-06 06:41] LABS: HEMATOCRIT 32.1 % (42.0-52.0); HEMOGLOBIN 10.3 g/dl (13.5-17.5); MEAN CORPUSCULAR HEMOGLOBIN 32.6 pg (27.0-33.0); MEAN CORPUSCULAR HGB CONC 32.1 g/dl (32.0-36.5); MEAN CORPUSCULAR VOLUME 101.6 fl (80.0-96.0); PLATELET COUNT, AUTOMATED 170 10^3/uL (150-450); RED BLOOD COUNT 3.16 10^6/uL (4.30-6.10); WHITE BLOOD COUNT 9.3 10^3/uL (4.0-10.0)
[2018-11-06 06:51] LABS: INR 1.2; PROTHROMBIN TIME 14.9 SECONDS (11.8-14.0)
[2018-11-06 07:05] LABS: CALCIUM LEVEL 8.4 MG/DL (8.8-10.2); CREATININE FOR GFR 5.09 MG/DL (0.70-1.30); GLOMERULAR FILTRATION RATE 12.1 (>49); POTASSIUM SERUM 3.6 MEQ/L (3.5-5.1)
[2018-11-06] MEDS: ASPIRIN 81 MG ENTERIC TAB PO SCH (08:13)
[2018-11-06] MEDS: GABAPENTIN 100 MG CAP PO SCH ×3 (08:13→21:29)
[2018-11-06] MEDS: ATORVASTATIN 20 MG TAB PO SCH (08:13)
[2018-11-06] MEDS: ASCORBIC ACID 500 MG TAB PO SCH (08:14)
[2018-11-06] MEDS: amLODIPine 10 MG TAB PO SCH (08:14)
[2018-11-06] MEDS: atenoloL 50 MG TAB PO SCH (08:14)
[2018-11-06] MEDS: NYSTATIN 100,000 UNITS/GM TOPICAL PWD 15 GM TOP SCH ×2 (08:15→21:31)
[2018-11-06] MEDS: PIPERACILLIN/TAZOBACTAM SOD 2.25 GM in D5W MINI-BAG PLUS 50 ML IV SCH (08:16)
[2018-11-06] MEDS: HumaLOG INSULIN (NovoLOG) PER UNIT SC SCH ×4 (08:16→21:00)
[2018-11-06 14:00] VITALS: BP 144/68
--- NOTE | 2018-11-06 14:33 | CR.PDOC ---
General Date of Consultation: Nov 06, [address] Mak HPI: 68year old M admitted with fever and blood culture positive for gram positive cocci with concern for tunneled hemodialysis catheter as source of infe ction. Imaging with evidence of discitis, on antibiotics as per Medicine service. Vascular Surgery is consulted for removal of HD catheter. Denies any fevers, chills, weakness, fatigue, Headache, Chest Pain, Shortness of breath, cough, palpitations, abdominal pain, N/V/D or changes in bowel or jeff dder habits. PAST MEDICAL HISTORY: 1. End-stage renal disease on hemodialysis. 2. Schizoaffective disorder. 3. Diabetes mellitus 4 diastolic congestive heart failure 5 hypertension 6 hypertensive heart disease 7. Peripheral neuropathy 8 coronary artery disease 9. Morbid obesity 10 DVT 11 peripheral arterial disease 12 COPD 11 restless leg syndrome 12 anemia of end-stage renal disease. PAST SURGICAL HISTORY: 1. Right tunneled HD catheter 2. Left transmetatarsal amputation. 3. Right above-knee amputation. SOCHX: Tobacco use: smoker ETOH: denies ROS: As noted in HPI, otherwise 11pt ROS of systems reviewed and unremarkable. PE: GEN: 68yoM, No acute distress. Alert and oriented x 3. HEENT: Normocephalic, atraumatic. Moist mucous membranes. CHEST: Regular rate and rhythm, +S1, +S2 LUNGS: Clear to auscultation bilaterally. No wheezes, rales, or rhonchi. ABD: Round, soft, non-tender, non-distended. EXT: No lower extremity edema appreciated. SKIN: Permcath Rt chest with no drainage noted. NEURO: Alert and oriented x 3. No focal deficits appreciated. A&P: 1. Fever/bacteremia. Concern for bacteremia related to Rt chest tunneled hemodialysis catheter. Vascular surgery is consulted for removal of catheter and placement of a temporary catheter until he is able to clear his bacteremia. The pt is reviewed by Dr Mak. The pt was confirmed to be scheduled for HD Tue AM. Plan is to remove HD catheter after HD in AM and leave out until his next HD treatment. This will allow time for antibiotics with no catheter in place. Dr Mak will re place HD catheter for dialysis. Plan was discussed with medicine service as per Dr Mak. Vital Signs/I&O Vital Signs Date Time Temp Pulse Resp B/P (MAP) Pulse Ox O2 Delivery O2 Flow Rate FiO2 11/06/18 08:30 3.0 11/06/18 08:14 61 148/72 11/06/18 05:15 18 94 11/06/18 05:14 97.3 11/03/18 09:40 Room Air I&O- Last 24 Hours up to 6 AM 11/06/18 06:00 Intake Total 2150 ml Output Total 800 ml Balance 1350 ml Laboratory Data Labs 24H Laboratory Tests 2 11/05/18 17:06: Bedside Glucose (Misc Panel) 222H 11/05/18 19:55: Bedside Glucose (Misc Panel) 187H 11/06/18 06:13: Nucleated Red Blood Cells % (auto) 0.0, Prothrombin Time 14.9H, Prothromb Time International Ratio 1.20, Anion Gap 6L, Glomerular Filtration Rate 12.1L, Blood Urea Nitrogen 41H, Creatinine 5.09H, Sodium Level 135L, Potassium Level 3.6, Chloride Level 102, Carbon Dioxide Level 27, Calcium Level 8.4L 11/06/18 11:36: Bedside Glucose (Misc Panel) 233H CBC/BMP Laboratory Tests 11/06/18 06:13 Red Blood Count 3.16 L, Mean Corpuscular Volume 101.6 H, Mean Corpuscular Hemoglobin 32.6, Mean Corpuscular Hemoglobin Concent 32.1, Red Cell Distribution Width 14.9 H, Calcium Level 8.4 L Microbiology Microbiology 11/05/18 Blood Culture, Received Pending 11/04/18 Blood Culture - Preliminary, Resulted No growth after 24 hours . All specim... 11/04/18 Blood Culture - Preliminary, Resulted 11/03/18 Blood Culture - Final, Complete Enterococcus Faecalis 11/03/18 Blood Culture - Final, Complete Enterococcus Faecalis 11/03/18 MRSA Screen - Final, Complete Allergies Coded Allergies: bupivacaine (Verified Adverse Reaction, Severe, induces Brugada syndrome, 06/14/18) Home Medications Scheduled Amlodipine Besylate (Amlodipine Besylate) 10 Mg Tab, 10 MG PO DAILY, (Reported) Ascorbic Acid (Vitamin C) 500 Mg Capsule, 500 MG PO DAILY, (Reported) Aspirin (Aspirin EC) 81 Mg Tab, 81 MG PO DAILY, (Reported) Atenolol (Atenolol) 50 Mg Tab, 50 MG PO DAILY, (Reported) Atorvastatin Calcium (Atorvastatin Calcium) 40 Mg Tablet, 40 MG PO DAILY, (Reported) Fluticasone/Vilanterol (Breo Ellipta 100-25 Mcg INH) 1 Each Blst.w.dev, 1 PUFF PO DAILY, (Reported) Gabapentin (Gabapentin) 100 Mg Cap, 100 MG PO TID, (Reported) Hydralazine HCl (Hydralazine HCl) 25 Mg Tablet, 25 MG PO TID, (Reported) Insulin Aspart (Novolog) 100 Unit/1 Ml Cartridge, 5 UNITS SC QPM, (Reported) Insulin Detemir (Levemir) 1 Units/0.01 Ml Susp, 55 UNITS SC DAILY, (Reported) Insulin Human Lispro (Novolog) 100 U/Ml Inj, 10 UNITS SC BID, (Reported) MORNING AND AFTERNOON Ropinirole HCl (Ropinirole HCl) 0.25 Mg Tablet, 0.25 MG PO QHS, (Reported) Warfarin Sodium (Warfarin Sodium) 2 Mg Tablet, 2 MG PO DAILY, (Reported) Scheduled PRN Acetaminophen (Acetaminophen) 500 Mg Tablet, 500 MG PO Q4H PRN for PAIN / FEVER, (Reported) Nitroglycerin (Nitrostat) 0.4 Mg Subl, 0.4 MG SL NITRO PRN for CHEST PAIN, (Reported) Ce Jay Nov 06, 2018 14:33 KEENAN MAK MD Nov 06, 2018 15:22
--- NOTE | 2018-11-06 14:53 | IPNPDOC ---
Date Seen The patient was seen on 11/06/18. Progress Note SUBJECTIVE: Patient presented for low back pain and fever. States that his belly hurts a little bit that he has some shortness of breath. He denies chest pain, nausea, vomiting or diarrhea OBJECTIVE PHYSICAL EXAMINATION: VITAL SIGNS: Please see below. GENERAL: Disheveled morbidly obese s man laying in the hospital bed on her back. awake alert oriented speaking in complete sentences but muffled sound due to poor dentition HEENT: Dry mucous membranes no elevation in CVP CARDIOVASCULAR: S1 S2 regular no additional heart sounds appreciated. RESPIRATORY: Clear to auscultation anteriorly & right posterior lung rhonchi is appreciated ABDOMINAL: Bowel sounds present abdomen soft but morbidly obese abdomen. slightly tender to light palpation, and has an umbilical hernia visible. EXTREMITIES: No clubbing cyanosis or edema evidence of chronic venous stasis in the left lower extremity. Right [id number] amputation and transmetatarsal amputation on the left NEUROLOGICAL: Spontaneously moves all 4 extremities cranial 2 through 12 grossly intact no gross focal deficits appreciated PSYCHOLOGICAL: At baseline LABORATORY DATA, MICROBIOLOGY: Please see below. IMAGING STUDIES: Thoracic spine x-ray: There is moderate disc space narrowing at every level. Cross-table lateral views were obtained. Grade 1 thoracic spine compression fractures are suspected at multiple levels difficult to evaluate on this limited exam. There is a double lumen central venous catheter in place, the tip of which is in the region of the superior vena cava. Lumbar spine: Chronic changes Chest x-ray:No acute disease. Central venous tunnel catheter in place. Chest CT:Limited examination showing no acute disease CT abdomen and pelvis: Markedly limited exam showing no significant change from the prior exam. There is cholelithiasis, status quo. Renal cysts and renovascular calcifications, status quo. Arterial aneurysms as described above, status quo. Other findings as described above. Echo: PENDING Lumbar spine MRI: Early discitis on L3-L4 disc levels. ASSESSMENT AND PLAN: This is a 68-year-old man with end-stage renal disease presenting with fever. PROBLEMS: Bacteremia/Early discitis on L3-L4 -blood cultures x2 positive for E. Faecalis -Continue with vancomycin and Zosyn and de-escalate pending cultures and continued for 6 weeks. -ECHO pending -ID consultated, unsure if source is dialysis catheter, patient has very poor hygiene -Dr. Mak, consulted, for possible removal of the catheter in the morning after dialysis End-stage renal disease on hemodialysis -history of nonadherence -Tuesday//Tuesday -Consulted nephrology Diabetes: -ISS and gabapentin COPD -Breo at home -c/w duonebs Coronary artery disease -c/w aspirin, statin atenolol with holding parameters Hypertension and hypertensive heart disease -c/w atenolol and amlodipine with holding parameters -restart hydralazine today and monitor his blood pressure Restless leg syndrome -c/w Requip daily at bedtime DVT -INR : 2-3 -c/w Coumadin Homelessness PFS cons - benefit from placement Morbid obesity -Complicating care Schizoaffective disorder - does not appear to be in any active medications Anemia of end-stage renal disease Stable DVT PROPHYLAXIS: Coumadin I saw and evaluated the patient. I agree with the findings and plan of care as documented in the above note VS, I&O, 24H, Fishbone Vital Signs/I&O Vital Signs Date Time Temp Pulse Resp B/P (MAP) Pulse Ox O2 Delivery O2 Flow Rate FiO2 11/06/18 08:30 3.0 11/06/18 08:14 61 148/72 11/06/18 05:15 18 94 11/06/18 05:14 97.3 11/03/18 09:40 Room Air l I&O- Last 24 Hours up to 6 AM 11/06/18 06:00 Intake Total 2150 ml Output Total 800 ml Balance 1350 ml Laboratory Data 24H LABS Laboratory Tests 2 11/05/18 17:06: Bedside Glucose (Misc Panel) 222H 11/05/18 19:55: Bedside Glucose (Misc Panel) 187H 11/06/18 06:13: Nucleated Red Blood Cells % (auto) 0.0, Prothrombin Time 14.9H, Prothromb Time International Ratio 1.20, Anion Gap 6L, Glomerular Filtration Rate 12.1L, Blood Urea Nitrogen 41H, Creatinine 5.09H, Sodium Level 135L, Potassium Level 3.6, Chloride Level 102, Carbon Dioxide Level 27, Calcium Level 8.4L 11/06/18 11:36: Bedside Glucose (Misc Panel) 233H CBC/BMP Laboratory Tests 11/06/18 06:13 Red Blood Count 3.16 L, Mean Corpuscular Volume 101.6 H, Mean Corpuscular Hemoglobin 32.6, Mean Corpuscular Hemoglobin Concent 32.1, Red Cell Distribution Width 14.9 H, Calcium Level 8.4 L Microbiology Microbiology 11/05/18 Blood Culture, Received Pending 11/04/18 Blood Culture - Preliminary, Resulted No growth after 24 hours . All specim... 11/04/18 Blood Culture - Preliminary, Resulted 11/03/18 Blood Culture - Final, Complete Enterococcus Faecalis 11/03/18 Blood Culture - Final, Complete Enterococcus Faecalis 11/03/18 MRSA Screen - Final, Complete VIRGINIA MARTINEZ DO Nov 06, 2018 14:53 SMITHA AYALA MD Nov 25, 2018 10:07
[2018-11-06] MEDS ORDERED: GENTAMICIN 120 MG in D5W 50 ML IV ONE ×2 (16:15→20:00)
[2018-11-06] MEDS ORDERED: WARFARIN SOD 5 MG TAB PO ONE (17:00)
[2018-11-06] MEDS: **hydrALAZINE HCL** 25 MG TAB PO SCH ×2 (18:01→21:30)
[2018-11-06] MEDS: AMPICILLIN SOD 2 GM in D5W MINI-BAG PLUS 100 ML IV SCH (18:03)
[2018-11-06] MEDS: WARFARIN SOD 2 MG TAB PO SCH (18:03)
[2018-11-06] MEDS: MAALOX 30 ML SUSP *UDC PO PRN ×2 (18:32→23:01)
[2018-11-06] MEDS: cefTRIAXone SOD 2 GM in D5W MINI-BAG PLUS 50 ML IV SCH (19:17)
[2018-11-06 21:07] VITALS: BP 178/71
--- NOTE | 2018-11-06 21:26 | IPN ---
DATE: 11/03/2018 Mr. Brown is seen this afternoon on his bedside. He was admitted with fever and he has positive blood cultures for gram positive cocci with final report pending. He was given antibiotics and fever has improved. He was dialyzed yesterday. At present, he remains weak and denies any nausea or vomiting. He is on oxygen 2 liters via nasal cannula. PHYSICAL EXAMINATION: Temperature 98.6 degrees Fahrenheit, heart rate 70 per minute, respiratory rate 20 per minute. Blood pressure 158/75 mmHg and oxygen saturation 93% on 2 liters oxygen. Head atraumatic. Neck supple but JVD is difficult to be assessed. He has a right-sided internal jugular vein PermCath without any signs of infection. Heart sounds are regular and lungs with diminished breath sounds, but no wheezing or rales. Abdomen is obese, nontender and bowel sounds are present. Extremities: Without any cyanosis or clubbing. He has a remote right [id number] amputation and left transmetatarsal amputation. Today's labs show WBC count 11.1, hemoglobin 10.6 and hematocrit 32.4. Sodium 137, potassium 3.9, CO2 28, BUN 30 and creatinine 4.21. Calcium is 8.9. Initial blood cultures positive for gram positive cocci. Repeat blood cultures from are still negative. PROBLEMS: 1. End-stage renal disease. The patient was dialyzed yesterday and next dialysis will be due on Tuesday. There is no emergent need for dialysis today. His volume status is well-compensated and electrolytes are within normal range. 2. Gram positive bacteremia with sepsis. The patient is feeling better and fever has improved. He has been on antibiotics and repeat blood cultures are negative so far. 3. Diarrhea and incontinence. The patient had fecal incontinence with diarrheal stools at home and his apartment was found to be in filthy condition due to which he is being evicted from his apartment. The patient has multiple comorbid conditions and he is unable to help himself. I would strongly recommend for long-term longterm placement. 4. Chronic obstructive pulmonary disease (COPD) with active smoking. The patient has active smoking history and does have chronic lung disease. I would recommend to hospitalist service for possible nicotine placement and continue with his bronchodilator therapy as needed. 5. Hypertension. Blood pressure seems reasonably well-controlled. I would recommend to continue with current antihypertensive medications.
[2018-11-06] MEDS: FAMOTIDINE 20 MG TAB PO SCH (21:29)
[2018-11-06] MEDS: rOPINIRole 0.25 MG TAB(REQUIP) PO SCH (21:29)
--- NOTE | 2018-11-07 00:14 | ECHO ---
DATE OF PROCEDURE: 11/06/2018 REFERRING PHYSICIAN: Dr. Fanny Gonzalez INDICATION: Fever. HEIGHT: 170 cm WEIGHT: 97 kg 2D MEASUREMENTS: Ventricular septum: 1.22 cm Posterior wall: 1.29 cm Left ventricle diastole: 6.0 cm Aortic root: 3.4 cm Left atrium: 4.7 cm DOPPLER MEASUREMENTS: Aortic valve velocity: 162 cm/s LVOT velocity: 96.8 cm/s LVOT VTI: 23.8 cm Very mild mitral regurgitation. Mitral E velocity: 99.4 cm/s Mitral A velocity: 107 cm/s Mitral deceleration time: 208 ms Very mild tricuspid regurgitation. Very mild pulmonic regurgitation. Pulmonary artery systolic pressure: 21 mmHg. MITRAL ANNULAR TISSUE DOPPLER: E prime lateral: 7.2 cm/s E prime septal: 3.2 cm/s DESCRIPTION: Rhythm was sinus. Image quality was fair. This was a 2D, M-mode, color flow Doppler and pulse wave Doppler examination and included mitral annular tissue Doppler. CONCLUSIONS: 1. Mildly dilated left ventricle with mild mixed eccentric/concentric left ventricle hypertrophy. LV systolic function at the lower limits of normal. Left ventricular ejection fraction (LVEF) 50% (3D). 2. Moderate left atrial dilatation. 3. Moderate aortic valve sclerosis of a 3-cusp aortic valve. No aortic stenosis or regurgitation. 4. Mild mitral annular calcification with very mild mitral regurgitation. 5. No vegetations identified on the cardiac valves.
[2018-11-07] MEDS ORDERED: ONDANSETRON 4MG/2ML VIAL (J2405) IV PRN (01:45)
[2018-11-07] MEDS: AMPICILLIN SOD 2 GM in D5W MINI-BAG PLUS 100 ML IV SCH ×2 (05:18→17:48)
--- NOTE | 2018-11-07 05:31 | IPN ---
DATE OF VISIT: 11/06/2018 Mr. Blayne Felix is seen this morning on his bedside. He is feeling about the same but has no fever anymore. He denies any dyspnea or chest pain. There is no nausea or vomiting. His blood cultures did grow Enterococcus faecalis from November 03 and repeat blood cultures from the , one set is still growing Gram positive cocci and the other one was negative. PHYSICAL EXAMINATION: Vital signs: Temperature 97.3 degrees Fahrenheit, heart rate 60 per minute and respiratory rate 18 per minute. Blood pressure 148/72 mmHg and oxygen saturation 94%. HEENT: Head is atraumatic. Neck: Neck is supple and jugular venous distention (JVD) difficult to be assessed. Heart: Sounds regular. Lungs: Clear to auscultation. Abdomen: Obese, soft and nontender and bowel sounds are present. Extremities: Without any cyanosis or clubbing. He has a remote right [id number] amputation and left transmetatarsal amputation. LABORATORY DATA: Today's labs show WBC count 9.3, hemoglobin 10.3, hematocrit 32. Sodium 135, potassium 3.6, CO2 23, BUN 41 and creatinine 5.09. Glucose 156 and calcium 8.4. PROBLEMS: 1. End-stage renal disease. The patient is regularly dialyzed on Tuesday, and Tuesday schedule. He will be scheduled for dialysis tomorrow. His volume status is well-compensated and electrolytes are stable. 2. Enterococcus bacteremia, most likely related to his gastrointestinal (GI) problems. He does have history of diarrhea and fecal incontinence. Dialysis catheter looks without any signs of infection at the catheter exit site. The patient is being treated with antibiotics and he is already afebrile. We will see how his repeat blood cultures go. 3. Hypertension. Blood pressure is reasonably well-controlled on current antihypertensive meds. No changes are being made today. 4. Anemia. Anemia is stable at baseline and he does not need any urgent intervention.
[2018-11-07 05:49] LABS: HEMATOCRIT 34.9 % (42.0-52.0); HEMOGLOBIN 11.6 g/dl (13.5-17.5); MEAN CORPUSCULAR HEMOGLOBIN 33.8 pg (27.0-33.0); MEAN CORPUSCULAR HGB CONC 33.2 g/dl (32.0-36.5); MEAN CORPUSCULAR VOLUME 101.7 fl (80.0-96.0); PLATELET COUNT, AUTOMATED 188 10^3/uL (150-450); RED BLOOD COUNT 3.43 10^6/uL (4.30-6.10)
[2018-11-07 05:56] VITALS: BP 175/75
[2018-11-07 06:10] LABS: INR 1.19; PROTHROMBIN TIME 14.8 SECONDS (11.8-14.0)
[2018-11-07 06:17] LABS: CALCIUM LEVEL 8.6 MG/DL (8.8-10.2); CREATININE FOR GFR 5.26 MG/DL (0.70-1.30); GLOMERULAR FILTRATION RATE 11.6 (>49); POTASSIUM SERUM 3.9 MEQ/L (3.5-5.1)
[2018-11-07] MEDS: cefTRIAXone SOD 2 GM in D5W MINI-BAG PLUS 50 ML IV SCH ×2 (06:39→17:48)
[2018-11-07] MEDS: ONDANSETRON 4MG/2ML VIAL (J2405) IV SCH ×6 (06:39→23:55)
[2018-11-07] MEDS: amLODIPine 10 MG TAB PO SCH (07:00)
[2018-11-07] MEDS: ASPIRIN 81 MG ENTERIC TAB PO SCH (07:00)
[2018-11-07] MEDS: ATORVASTATIN 20 MG TAB PO SCH (07:00)
[2018-11-07] MEDS: ASCORBIC ACID 500 MG TAB PO SCH (07:00)
[2018-11-07] MEDS: **hydrALAZINE HCL** 25 MG TAB PO SCH ×3 (07:01→20:41)
[2018-11-07] MEDS: ACETAMINOPHEN 500 MG TAB PO PRN ×2 (07:01→17:51)
[2018-11-07] MEDS: atenoloL 50 MG TAB PO SCH (07:01)
[2018-11-07] MEDS: GABAPENTIN 100 MG CAP PO SCH ×3 (07:01→20:41)
[2018-11-07] MEDS: IPRATROPIUM 0.5MG/ALBUTEROL 2.5MG INH SOL UD 3ML (DUONEB)(J7620) NEB SCH ×3 (07:07→19:57)
[2018-11-07] MEDS: NYSTATIN 100,000 UNITS/GM TOPICAL PWD 15 GM TOP SCH ×2 (08:05→20:41)
[2018-11-07] MEDS: HumaLOG INSULIN (NovoLOG) PER UNIT SC SCH ×4 (08:05→22:07)
[2018-11-07 10:26] LABS: VANCOMYCIN RANDOM 12.7 UG/ML
--- NOTE | 2018-11-07 11:43 | IPNPDOC ---
Date Seen The patient was seen on 11/07/18. Progress Note SUBJECTIVE: Patient presented for low back pain and fever. States that his belly hurts a little bit and that he woke up in the middle the night to small nonbloody vomiting. He denies having any more episodes after the last one early this morning. Currently getting dialysis morning. He denies any chest pain shortness of breath any nausea prior to the vomiting or diarrhea. Is currently a little constipated since he's been admitted he has not had any bowel movements. OBJECTIVE PHYSICAL EXAMINATION: VITAL SIGNS: Please see below. GENERAL: Disheveled morbidly obese s man laying in the hospital bed on his back. awake alert oriented speaking in complete sentences but muffled sound due to poor dentition HEENT: Moist mucous membranes no elevation in CVP CARDIOVASCULAR: S1 S2 regular no additional heart sounds appreciated. RESPIRATORY: Clear to auscultation anteriorly & right posterior lung rhonchi is appreciated ABDOMINAL: Bowel sounds present abdomen soft but morbidly obese abdomen. sli ghtly tender to light palpation, and has an umbilical hernia visible. EXTREMITIES: No clubbing cyanosis or edema evidence of chronic venous stasis in the left lower extremity. Right [id number] amputation and transmetatarsal amputation on the left PSYCHOLOGICAL: At baseline LABORATORY DATA, MICROBIOLOGY: Please see below. IMAGING STUDIES: Thoracic spine x-ray: There is moderate disc space narrowing at every level. Cross-table lateral views were obtained. Grade 1 thoracic spine compression fractures are suspected at multiple levels difficult to evaluate on this limited exam. There is a double lumen central venous catheter in place, the tip of which is in the region of the superior vena cava. Lumbar spine: Chronic changes Chest x-ray:No acute disease. Central venous tunnel catheter in place. Chest CT:Limited examination showing no acute disease CT abdomen and pelvis: Markedly limited exam showing no significant change from the prior exam. There is cholelithiasis, status quo. Renal cysts and renovascular calcifications, status quo. Arterial aneurysms as described above, status quo. Other findings as described above. Lumbar spine MRI: Early discitis on L3-L4 disc levels. Echocardiogram 1. Mildly dilated left ventricle with mild mixed eccentric/concentric left ventricle hypertrophy. LV systolic function at the lower limits of normal. Left ventricular ejection fraction (LVEF) 50% (3D). 2. Moderate left atrial dilatation. 3. Moderate aortic valve sclerosis of a 3-cusp aortic valve. No aortic stenosis or regurgitation. 4. Mild mitral annular calcification with very mild mitral regurgitation. 5. No vegetations identified on the cardiac valves. ASSESSMENT AND PLAN: This is a 68-year-old man with end-stage renal disease presenting with fever. PROBLEMS: Bacteremia/Early discitis on L3-L4 -blood cultures x2 positive for E. Faecalis, possible source: tunneled dialysis catheter -Continue with antibiotics and continue with ID recommendations. -ECHO: above, negative for vegetation -ID consulted, appreciate recommendations -Dr. Mak, consulted, for removal of the catheter today after dialysis End-stage renal disease on hemodialysis -history of non-adherence -Tuesday//Tuesday -Consulted nephrology Diabetes: -ISS and gabapentin COPD -Breo at home -c/w duonebs Coronary artery disease -c/w aspirin, statin atenolol with holding parameters Hypertension and hypertensive heart disease -c/w atenolol and amlodipine with holding parameters, hydralazine Restless leg syndrome -c/w Requip daily at bedtime DVT -INR : 2-3 -c/w Coumadin Homelessness PFS cons - benefit from placement Morbid obesity -Complicating care Schizoaffective disorder - does not appear to be in any active medications Anemia of end-stage renal disease Stable Constipation -Possibly can contribute to emesis this morning -Kina Aburto on board DVT PROPHYLAXIS: Coumadin Attending Note I saw and evaluated the patient. I agree with the finding and plan of care as documented in the resident's note. VS, I&O, 24H, Fishbone Vital Signs/I&O Vital Signs Date Time Temp Pulse Resp B/P (MAP) Pulse Ox O2 Delivery O2 Flow Rate FiO2 11/07/18 09:20 3.0 11/07/18 07:00 71 175/75 11/07/18 05:56 97.3 20 99 11/03/18 09:40 Room Air I&O- Last 24 Hours up to 6 AM 11/07/18 06:00 Intake Total 1190 ml Output Total 1050 ml Balance 140 ml Laboratory Data 24H LABS Laboratory Tests 2 11/06/18 11:36: Bedside Glucose (Misc Panel) 233H 11/06/18 16:38: Bedside Glucose (Misc Panel) 250H 11/06/18 21:06: Bedside Glucose (Misc Panel) 197H 11/07/18 05:39: Nucleated Red Blood Cells % (auto) 0.0, Prothrombin Time 14.8H, Prothromb Time International Ratio 1.19, Anion Gap 11, Glomerular Filtration Rate 11.6L, Blood Urea Nitrogen 53H, Creatinine 5.26H, Sodium Level 138, Potassium Level 3.9, Chloride Level 99, Carbon Dioxide Level 28, Calcium Level 8.6L, Random Vancomycin Level 12.7 CBC/BMP Laboratory Tests 11/07/18 05:39 Red Blood Count 3.43 L, Mean Corpuscular Volume 101.7 H, Mean Corpuscular Hemoglobin 33.8 H, Mean Corpuscular Hemoglobin Concent 33.2, Red Cell Distribution Width 14.8 H, Calcium Level 8.6 L Microbiology Microbiology 11/07/18 Blood Culture, Received Pending 11/05/18 Blood Culture - Preliminary, Resulted No growth after 24 hours . All specim... 11/04/18 Blood Culture - Preliminary, Resulted No Growth after 48 hours. All Specime... 11/04/18 Blood Culture - Final, Complete Enterococcus Faecalis 11/03/18 Blood Culture - Final, Complete Enterococcus Faecalis 11/03/18 Blood Culture - Final, Complete Enterococcus Faecalis 11/03/18 MRSA Screen - Final, Complete VIRGINIA MARTINEZ DO Nov 07, 2018 11:43 CHEO MARSH MD Nov 07, 2018 16:13
[2018-11-07] MEDS: SENOKOT S TAB PO SCH ×2 (11:45→20:41)
[2018-11-07] MEDS ORDERED: LIDOCAINE W/EPINEPHRINE 1% 20ML VIAL As Ordered ONE (12:02)
--- NOTE | 2018-11-07 14:59 | ROOPDOC ---
[facility] Report Of Operation Report of Operation DATE OF PROCEDURE: 11/07/18 PREPROCEDURE DIAGNOSES: Right IJ PermCath with recent history of bacteremia, Enterococcus faecalis POSTPROCEDURE DIAGNOSES: Same PROCEDURE: Removal right IJ PermCath SURGEON: Keenan Mak MD ANESTHESIA: 5 mL local anesthesia. INDICATION FOR PROCEDURE: Mr. Cisneros is a 68-year-old gentleman with end-stage renal disease currently dialyzing with a right IJ PermCath. The patient was evaluated for AV fistula versus AV graft, but declined both. He was recently admitted with bacteremia and discitis, and vascular surgery was consult and for removal of the PermCath with plans for subsequent replacement to provide the patient with an intermittent line holiday. Risks benefits and alternatives to PermCath removal were explained at length to the patient. He is agreeable to proceed. Informed consent was obtained. PROCEDURE: The patient's catheter at the right chest was prepped with ChloraPrep and thoroughly cleaned. Local anesthesia was administered to the skin and subcutaneous tissue around the catheter and the cuff. Blunt and sharp dissection were used to loosen the cuff from the subcutaneous tissue. Pressure was held at the jugular access site and the catheter was removed. The catheter was examined and found to be completely intact, including the cuff and the tip, and no portion was left behind. Pressure was held at the jugular vein for 10 minutes for good hemostasis and sterile dressings were applied at the right chest site. The head of bed was elevated and the patient was allowed to transfer back to the floor in stable condition. He tolerated the procedure very well. ESTIMATED BLOOD LOSS: Approximately 2 mL. COMPLICATIONS: None. PLAN: Recommend keeping head of bed elevated 45 or more for the rest of the day to lower venous pressure in the neck and diminish risk of bleeding status post catheter removal. We plan to replace the PermCath on morning. This will give the patient 48 hours line holiday. KEENAN MAK MD Nov 07, 2018 14:59
--- NOTE | 2018-11-07 16:40 | CR ---
DATE OF CONSULTATION: 11/06/2018 INFECTIOUS DISEASE CONSULTATION Asked to consult by Dr. Simms for evaluation Enterococcus (E) faecalis bacteremia and discitis. HISTORY OF PRESENT ILLNESS: Mr. Cisneros is a 68-year-old gentleman with a history of end-stage renal disease who gets hemodialysis through a hemodialysis catheter in the right chest. The patient has a history of schizoaffective disorder and non-adherence to medical therapy. He was agitated at dialysis, and he had been recently evicted from his apartment. He was complaining of severe back pain, which has progressively gotten worse. He denied any weight loss, paresthesias, weakness upper or lower extremities He did have some diarrhea with incontinence with a fever. The patient had blood cultures that grew Enterococcus faecalis. The patient was started on vancomycin and Zosyn. Dr. Jeffers was consulted for removal of the hemodialysis catheter. Lumbar spine MRI done on 11/04/2018 was consistent with L3-L4 diskitis. Today the patient complains of epigastric pain, nausea, chest pain. He is kind of confused and uncomfortable in bed. His temperature was 102.1 on admission. He has been afebrile over the past 24 hours. PAST MEDICAL HISTORY: End-stage renal disease - on hemodialysis through a hemodialysis catheter, right chest, schizoaffective disorder, diabetes, diastolic congestive heart failure, hypertension, peripheral neuropathy, coronary artery disease, morbid obesity, deep vein thrombosis (DVT), peripheral vascular disease, chronic obstructive pulmonary disease (COPD), restless leg syndrome, anemia of renal disease. PAST SURGICAL HISTORY: Right tunneled hemodialysis catheter. Left transmetatarsal amputation, right above-knee amputation. SOCIAL HISTORY: He is a smoker. He denies alcohol use. He lives alone. REVIEW OF SYSTEMS: He complains of nausea, epigastric pain, abdominal pain. No diarrhea. No urinary symptoms. He has severe back pain. No upper or lower extremity weakness. ALLERGIES: BUPIVACAINE. MEDICATIONS: - vancomycin 1 gram with hemodialysis - Zosyn 2.25 grams every 12 hours - Requip 0.25 mg by mouth nightly - Mycostatin powder twice a day - warfarin 2 mg by mouth daily - Tylenol as needed - gabapentin 100 mg by mouth three times a day - Norvasc 10 mg by mouth daily - vitamin C 500 mg by mouth daily - aspirin 81 mg by mouth daily - atenolol 50 mg by mouth daily - Lipitor 40 mg by mouth daily - hydralazine 25 mg by mouth three times a day - albuterol/Atrovent nebs as needed - warfarin 5 mg daily LABORATORY DATA: White count was 13 on admission, today it was 9.3, hemoglobin 10.3, hematocrit 32.1, platelets 170. Sodium 135, potassium 3.6, chloride 102, bicarbonate 27, BUN 41, creatinine 5.09, glucose 156, calcium 8.4. Procalcitonin 1.619. Random vancomycin level is 19.5. Blood cultures on 11/03/2018, two sets, are positive for E. faecalis resistant to ciprofloxacin, resistant to gentamicin 500, sensitive to amoxicillin. Methicillin-resistant Staphylococcus aureus (MRSA) screen was negative. Blood culture on 11/04/2018, one out of two, was still positive. Blood culture on 11/05/2018 is pending. IMAGING STUDIES: Lumbar spine MRI shows L3-L4 diskitis early, paraspinal phlegmon but not an epidural abscess, L4-5 degenerative changes without central canal stenosis, L5- S1 disk bulge. Head CT, 11/03/2018: Some chronic microvascular changes. No acute intracranial pathology. CT abdomen and pelvis done on 11/03/2018 shows limited exam without contrast: Renal cyst and calcification, arterial aneurysm measuring 3.7 cm left common iliac artery and 1.9 cm femoral artery. Chest x-ray: No acute disease, tunneled catheter on the right side. PHYSICAL EXAMINATION: He is uncomfortable. Temperature is 97.8, pulse 74, respirations 18, blood pressure 144/68, oxygen saturation 96% on 3 liters nasal cannula. Chest: Right hemodialysis catheter, tunneled, with no redness or purulence. Heart: Normal S1, S2, distant. Lungs are clear. No wheezes, rales or rhonchi. Abdomen: Morbidly obese, soft, nontender with umbilical hernia. Back: No costovertebral angle tenderness, L3, L4, L5 tenderness localized. No paraspinal pain. Upper and lower extremity strength normal. Right amputation site well healed, left transmetatarsal site with scab and with dry skin. No evidence of infection at either amputation site. Neurologic Exam: Upper and lower extremity strength normal. IMPRESSION: A 68-year-old gentleman with a history of end-stage renal disease, hemodialysis catheter in the right chest who presents with Enterococcus faecalis bacteremia and evidence of diskitis. Most likely the source of seeding from the hemodialysis catheter. One should rule out as well endocarditis. The patient currently is having epigastric/chest pain. I suspect it is of GI origin. The patient ordered Mylanta to see if it helps and his nurse has been informed. PLAN: Discontinue vancomycin and Zosyn, switch him to IV ampicillin 2 grams every 12 hours along with ceftriaxone for synergy. The Enterococcus faecalis is gentamicin resistant and therefore could not use that for synergy. Please obtain echocardiogram to rule out endocarditis as that would require treatment with dual regimen, ampicillin and Rocephin for a minimum of 2 weeks as he is at high risk of having endocarditis. He will probably need residential placement for IV antibiotics. Repeat a second set of blood cultures tomorrow. Obtain echocardiogram. FLORENTINO
[2018-11-07] MEDS ORDERED: WARFARIN SOD 5 MG TAB PO ONE (17:00)
[2018-11-07] MEDS: WARFARIN SOD 2 MG TAB PO SCH (17:47)
[2018-11-07] MEDS: MAALOX 30 ML SUSP *UDC PO PRN (18:52)
[2018-11-07 18:54] VITALS: BP 169/72
--- NOTE | 2018-11-07 19:52 | IPN ---
DATE: 11/07/2018 Mr. Cisneros is seen during dialysis this morning. He reports nausea and vomiting through the night. He continues to have positive blood cultures though his fever has improved. He is scheduled to have his Perma-Cath removed today after dialysis. PHYSICAL EXAMINATION: Temperature 97.3 degrees Fahrenheit, heart rate 70 per minute and respiratory rate 20 per minute. Blood pressure 175/75 mmHg and oxygen saturation 99% on 3 liters oxygen. His head is atraumatic. Neck veins difficult to be assessed. Heart sounds are regular and lungs with diminished breath sounds. Abdomen obese and nontender. Bowel sounds normal. Extremities without any cyanosis or clubbing. He has a right [id number] amputation and left transmetatarsal amputation. Neurologically he is at his baseline mentation. Today's labs show WBC count 11.0, hemoglobin 11.6 and hematocrit 34.9. Random vancomycin level this morning was 12.7. Sodium 138, potassium 3.9, CO2 28, BUN 53 and creatinine 5.26. PROBLEMS: 1. End-stage renal disease. The patient is being dialyzed today and he is tolerating his dialysis treatment well. 2. Anemia. His anemia is stable and does not need any intervention at present. We will continue to monitor. 3. Enterococcus bacteremia. The patient has a Perma-Cath and likely it is infected. I agree with removal of Perma-Cath after dialysis today. He will need a new Perma-Cath in a couple of days. 4. Hypertension. Blood pressure is not very well controlled, probably related to his nausea and vomiting. We are removing about 1 liter of fluid today which might help with blood pressure control.
[2018-11-07] MEDS: rOPINIRole 0.25 MG TAB(REQUIP) PO SCH (20:41)
[2018-11-07] MEDS: FAMOTIDINE 20 MG TAB PO SCH (20:41)
[2018-11-07 21:08] VITALS: BP 140/66
[2018-11-08] MEDS: IPRATROPIUM 0.5MG/ALBUTEROL 2.5MG INH SOL UD 3ML (DUONEB)(J7620) NEB SCH ×4 (01:58→21:07)
[2018-11-08] MEDS: ONDANSETRON 4MG/2ML VIAL (J2405) IV SCH ×6 (03:46→23:15)
[2018-11-08] MEDS: AMPICILLIN SOD 2 GM in D5W MINI-BAG PLUS 100 ML IV SCH ×2 (05:22→18:02)
[2018-11-08 05:38] LABS: HEMATOCRIT 32.6 % (42.0-52.0); MEAN CORPUSCULAR HEMOGLOBIN 34.3 pg (27.0-33.0); MEAN CORPUSCULAR HGB CONC 33.7 g/dl (32.0-36.5); MEAN CORPUSCULAR VOLUME 101.6 fl (80.0-96.0); PLATELET COUNT, AUTOMATED 205 10^3/uL (150-450); RED BLOOD COUNT 3.21 10^6/uL (4.30-6.10); WHITE BLOOD COUNT 10.4 10^3/uL (4.0-10.0)
[2018-11-08 05:59] LABS: INR 1.22; PROTHROMBIN TIME 15.1 SECONDS (11.8-14.0)
[2018-11-08 06:01] LABS: CALCIUM LEVEL 8.9 MG/DL (8.8-10.2); CREATININE FOR GFR 4.29 MG/DL (0.70-1.30); GLOMERULAR FILTRATION RATE 14.7 (>49); POTASSIUM SERUM 4.4 MEQ/L (3.5-5.1)
[2018-11-08] MEDS: cefTRIAXone SOD 2 GM in D5W MINI-BAG PLUS 50 ML IV SCH ×2 (06:19→20:06)
[2018-11-08 06:27] VITALS: BP 156/76
[2018-11-08] MEDS: ASCORBIC ACID 500 MG TAB PO SCH (08:15)
[2018-11-08] MEDS: ASPIRIN 81 MG ENTERIC TAB PO SCH (08:15)
[2018-11-08] MEDS: SENOKOT S TAB PO SCH ×2 (08:15→21:04)
[2018-11-08] MEDS: ATORVASTATIN 20 MG TAB PO SCH (08:15)
[2018-11-08] MEDS: HumaLOG INSULIN (NovoLOG) PER UNIT SC SCH ×4 (08:15→21:00)
[2018-11-08] MEDS: GABAPENTIN 100 MG CAP PO SCH ×3 (08:16→21:04)
[2018-11-08] MEDS: **hydrALAZINE HCL** 25 MG TAB PO SCH ×3 (08:16→21:04)
[2018-11-08] MEDS: atenoloL 50 MG TAB PO SCH (08:16)
[2018-11-08] MEDS: amLODIPine 10 MG TAB PO SCH (08:16)
[2018-11-08] MEDS: NYSTATIN 100,000 UNITS/GM TOPICAL PWD 15 GM TOP SCH ×2 (08:16→21:04)
[2018-11-08] MEDS: ACETAMINOPHEN 500 MG TAB PO PRN ×3 (08:18→23:15)
[2018-11-08] MEDS ORDERED: FAMOTIDINE 20 MG TAB PO SCH (09:00)
--- NOTE | 2018-11-08 11:46 | IPNPDOC ---
Date Seen The patient was seen on 11/08/18. Progress Note SUBJECTIVE: Patient presented for low back pain and fever. Seen and examined laying comfortably in bed. Has not had any more emesis since yesterday morning. He'll had not had any bowel movements since admission complaints of some abdominal discomfort. Denies any chest pain, shortness of breath, trouble breathing nausea, vomiting. OBJECTIVE PHYSICAL EXAMINATION: VITAL SIGNS: Please see below. GENERAL: Disheveled morbidly obese s man laying in the hospital bed on his back. awake alert oriented speaking in complete sentences but muffled sound due to poor dentition HEENT: Moist mucous membranes no elevation in CVP CARDIOVASCULAR: S1 S2 regular no additional heart sounds appreciated. Dialysis catheter removed RESPIRATORY: Clear to auscultation anteriorly & right posterior lung rhonchi is appreciated ABDOMINAL: Bowel sounds present abdomen soft but morbidly obese abdomen. slightly tender to light palpation, and has an umbilical hernia visible. EXTREMITIES: No clubbing cyanosis or edema evidence of chronic venous stasis in the left lower extremity. Right [id number]-dog-trzl amputation and transmetatarsal amputation on the left PSYCHOLOGICAL: At baseline LABORATORY DATA, MICROBIOLOGY: Please see below. IMAGING STUDIES: Thoracic spine x-ray: There is moderate disc space narrowing at every level. Cross-table lateral views were obtained. Grade 1 thoracic spine compression fractures are suspected at multiple levels difficult to evaluate on this limited exam. There is a double lumen central venous catheter in place, the tip of which is in the region of the superior vena cava. Lumbar spine: Chronic changes Chest x-ray:No acute disease. Central venous tunnel catheter in place. Chest CT:Limited examination showing no acute disease CT abdomen and pelvis: Markedly limited exam showing no significant change from the prior exam. There is cholelithiasis, status quo. Renal cysts and renovascular calcifications, status quo. Arterial aneurysms as described above, status quo. Other findings as described above. Lumbar spine MRI: Early discitis on L3-L4 disc levels. Echocardiogram 1. Mildly dilated left ventricle with mild mixed eccentric/concentric left ventricle hypertrophy. LV systolic function at the lower limits of normal. Left ventricular ejection fraction (LVEF) 50% (3D). 2. Moderate left atrial dilatation. 3. Moderate aortic valve sclerosis of a 3-cusp aortic valve. No aortic stenosis or regurgitation. 4. Mild mitral annular calcification with very mild mitral regurgitation. 5. No vegetations identified on the cardiac valves. ASSESSMENT AND PLAN: This is a 68-year-old man with end-stage renal disease presenting with fever. PROBLEMS: Bacteremia/Early discitis on L3-L4 -blood cultures x2 positive for E. Faecalis, possible source: tunneled dialysis catheter -Continue with antibiotics and continue with ID recommendations. -ECHO: above, negative for vegetation -ID consulted, appreciate recommendations -Dr. Mak, consulted, replace the PermCath on morning, currently 48 hours line holiday End-stage renal disease on hemodialysis -history of non-adherence -Tuesday//Tuesday -Consulted nephrology Diabetes: -ISS and gabapentin COPD -Breo at home -c/w duonebs Coronary artery disease -c/w aspirin, statin atenolol with holding parameters Hypertension and hypertensive heart disease -c/w atenolol and amlodipine with holding parameters, hydralazine Restless leg syndrome -c/w Requip daily at bedtime DVT -INR : 2-3 -c/w Coumadin Homelessness PFS cons - benefit from placement Morbid obesity -Complicating care Schizoaffective disorder - does not appear to be in any active medications GERD -discontinue home Pepcid -Start Protonix 40 mg daily Anemia of end-stage renal disease Stable Constipation -c/w Senokot S and Colace on board DVT PROPHYLAXIS: Coumadin VS, I&O, 24H, Fishbone Vital Signs/I&O Vital Signs Date Time Temp Pulse Resp B/P (MAP) Pulse Ox O2 Delivery O2 Flow Rate FiO2 11/08/18 08:16 156/76 11/08/18 08:16 70 11/08/18 06:27 98.1 18 86 3.0 11/03/18 09:40 Room Air I&O- Last 24 Hours up to 6 AM 11/08/18 05:59 Intake Total 870 ml Output Total 1520 ml Balance -650 ml Laboratory Data 24H LABS Laboratory Tests 2 11/07/18 12:50: Bedside Glucose (Misc Panel) 170H 11/07/18 16:48: Bedside Glucose (Misc Panel) 212H 11/07/18 20:32: Bedside Glucose (Misc Panel) 287H 11/08/18 05:20: Nucleated Red Blood Cells % (auto) 0.0, Prothrombin Time 15.1H, Prothromb Time International Ratio 1.22, Anion Gap 7L, Glomerular Filtration Rate 14.7L, Blood Urea Nitrogen 40H, Creatinine 4.29H, Sodium Level 140, Potassium Level 4.4, Chloride Level 103, Carbon Dioxide Level 30, Calcium Level 8.9 CBC/BMP Laboratory Tests 11/08/18 05:20 Red Blood Count 3.21 L, Mean Corpuscular Volume 101.6 H, Mean Corpuscular Hemoglobin 34.3 H, Mean Corpuscular Hemoglobin Concent 33.7, Red Cell Distribution Width 14.6 H, Calcium Level 8.9 Microbiology Microbiology 11/07/18 Blood Culture - Preliminary, Resulted No growth after 24 hours . All specim... 11/05/18 Blood Culture - Preliminary, Resulted No Growth after 48 hours. All Specime... 11/04/18 Blood Culture - Preliminary, Resulted No Growth after 72 hours. All specime... 11/04/18 Blood Culture - Final, Complete Enterococcus Faecalis 11/03/18 Blood Culture - Final, Complete Enterococcus Faecalis 11/03/18 Blood Culture - Final, Complete Enterococcus Faecalis 11/03/18 MRSA Screen - Final, Complete VIRGINIA MARTINEZ DO Nov 08, 2018 11:46
[2018-11-08] MEDS: PANTOPRAZOLE 40MG TAB (PROTONIX) PO SCH (12:32)
[2018-11-08] MEDS ORDERED: POLYETHYLENE GLYCOL (MIRALAX) 238GM BOTTLE PO ONE (13:00)
[2018-11-08] MEDS ORDERED: MIRALAX *UNIT DOSE* 17GM PACKET PO ONE (13:00)
[2018-11-08 15:18] VITALS: BP 155/78
[2018-11-08] MEDS ORDERED: WARFARIN SOD 5 MG TAB PO ONE (17:00)
[2018-11-08] MEDS: WARFARIN SOD 2 MG TAB PO SCH (17:03)
[2018-11-08] MEDS: rOPINIRole 0.25 MG TAB(REQUIP) PO SCH (21:03)
[2018-11-08 22:00] VITALS: BP 130/57
[2018-11-09] MEDS: IPRATROPIUM 0.5MG/ALBUTEROL 2.5MG INH SOL UD 3ML (DUONEB)(J7620) NEB SCH ×5 (01:37→20:00)
[2018-11-09] MEDS: NORCO, ANEXSIA 5/325MG TABLET (HYDROcodone/ACETAMINOPHEN) PO PRN ×2 (03:12→14:50)
[2018-11-09] MEDS: ONDANSETRON 4MG/2ML VIAL (J2405) IV SCH ×6 (03:12→23:11)
[2018-11-09] MEDS: SODIUM CHLORIDE NASAL 0.65% SPRAY BTL (OCEAN) PRN (03:12)
[2018-11-09 06:00] VITALS: BP 138/56
[2018-11-09] MEDS: AMPICILLIN SOD 2 GM in D5W MINI-BAG PLUS 100 ML IV SCH ×2 (06:01→17:14)
[2018-11-09 07:00] LABS: HEMATOCRIT 28.9 % (42.0-52.0); HEMOGLOBIN 9.2 g/dl (13.5-17.5); MEAN CORPUSCULAR HEMOGLOBIN 32.9 pg (27.0-33.0); MEAN CORPUSCULAR HGB CONC 31.8 g/dl (32.0-36.5); MEAN CORPUSCULAR VOLUME 103.2 fl (80.0-96.0); PLATELET COUNT, AUTOMATED 207 10^3/uL (150-450)
[2018-11-09] MEDS ORDERED: LIDOCAINE 2% MDV 20 ML VIAL As Ordered ONE (07:04)
[2018-11-09] MEDS ORDERED: HEPARIN 1,000 UNITS/ML 10ML VIAL (FOR RADIOLOGY& DIALYSIS ONLY) As Ordered ONE (07:04)
[2018-11-09 07:08] LABS: INR 1.55; PROTHROMBIN TIME 18.4 SECONDS (11.8-14.0)
[2018-11-09] MEDS ORDERED: LIDOCAINE W/EPINEPHRINE 1% 20ML VIAL As Ordered ONE (07:09)
[2018-11-09 07:21] LABS: CALCIUM LEVEL 8.7 MG/DL (8.8-10.2); CREATININE FOR GFR 5.11 MG/DL (0.70-1.30); POTASSIUM SERUM 3.9 MEQ/L (3.5-5.1)
[2018-11-09] MEDS ORDERED: fentaNYL 100 MCG/2 ML INJECTION (J3010) As Ordered ONE (07:44)
[2018-11-09] MEDS ORDERED: ISOVUE-300 61% 50ML VIAL (Q9967) As Ordered ONE (08:05)
--- NOTE | 2018-11-09 08:48 | ROOPDOC ---
[facility] Report Of Operation Report of Operation DATE OF PROCEDURE: 11/09/18 PREPROCEDURE DIAGNOSES: End-stage renal disease on hemodialysis status post recent right IJ PermCath removal for bacteremia, now with negative blood cultures POSTPROCEDURE DIAGNOSES: Same PROCEDURE: 1. Ultrasound-guided access right internal jugular vein, right IJ PermCath aborted due to venous occlude more proximally 2. Ultrasound-guided access left internal jugular vein 3. Placement 27 cm left IJ PermCath, tunneled SURGEON: Keenan Mak MD ANESTHESIA: 20 mL 1% lidocaine local anesthesia. Moderate intravenous conscious sedation with supervised by Dr. Mak. The patient was independent only moderate by registered nurse assigned to the Department of radiology using automated blood pressure, EKG, and pulse oximetry. A detailed conscious sedation record is probably started in the hospital information system. The following is a conscious sedation record: Start time 07:48, stop time 08:27, fentanyl 25 g IV 1. INDICATION FOR PROCEDURE: Mr. Cisneros is a 68-year-old gentleman with end-stage renal disease on hemodialysis who was admitted with bacteremia with enterococcus faecalis, started on appropriate IV antibiotics and was hemodynamically stable. His right IJ PermCath was then removed after dialysis 2 days ago giving him a 48 hour line holiday. His subsequent blood cultures have been negative. Today we bring him for replacement of his PermCath. I examined his neck on the right and left in preop holding with ultrasound. He is right IJ is small but patent, which may indicate a more proximal occlusion. The patient would like his catheter back on the right, so we will certainly try to replace it on the right. This is not successful, we will place in left IJ which is widely patent and large on ultrasound. The patient was extensively counseled and was reluctantly agreeable to proceed. He has schizoaffective disorder and has difficulty accepting new procedures, and also has a lot of back pain making positioning difficult, but we assured him we would do her best to try to keep him as comfortable as possible. Informed consent was obtained after risks benefits and alternatives were explained. We will proceed for right versus left IJ PermCath placement. INTERPRETATION: 1. The right IJ is patent in the neck on ultrasound, but we were not able to pass a wire proximally into the SVC due to more proximal occlusion of the vein. This is likely due to long-term catheter placement prior to this procedure. We did attempt to pass the wire several times and see if we could cross the occlusion, but every time it simply went into a collateral vein. The right IJ procedure was aborted. 2. Ultrasound guidance to the left internal jugular vein was successful, but due to patient body habitus and rotation, it was not clear if the wire was in correct position, therefore we injected a small amount of contrast to make sure we were in the venous system and help us guide the wire. We were then able to pass the wire into the SVC and IVC. 3. Left IJ tunneled PermCath catheter in good position, no kinks in the catheter, tip freely mobile and the SVC right atrial junction, no pneumothorax noted on the right or left. PROCEDURE: Patient was brought to the angiographic suite in stable condition. He has a chronic cough and is constantly talking and moving, and when he is still, his oxygen saturation is 98-99%, but when he is talking and moving it is 90-94%. We did provide additional supplemental oxygen to help with oxygenation. He was placed supine on the fluoroscopic table with great difficulty due to chronic back pain and leg pain. Eventually, we were able to get him somewhat comfortable enough to proceed. His right neck and chest were first prepped and draped in a sterile fashion and a timeout was performed. Ultrasound was used to guide access to the right internal jugular vein after anesthetizing with local anesthesia. Unfortunately, we were not able to pass the wire to the SVC. There was an occlusion in the more proximal her jugular vein near the SVC junction, and we could not cross it. When we attempted to cross it, we noticed our wire passing into a collateral instead. After several attempts, the right IJ wire was removed, pressure was held for hemostasis, and this procedure was aborted. We then reprepped and draped the left neck and chest in a sterile fashion. Ultrasound was used to guide access to the jugular vein on the left, and due to patient rotation and positioning was difficult to tell if the wire was passing to the SVC, therefore we injected a small amount of contrast to make sure we were passing the wire the correct direction and the anatomy was suitable. We did see that the veins were widely patent from the left IJ to the SVC and therefore we were able to pass a J-wire through this access into the central system, first the SVC and then the IVC through micro-sheath. The micro-sheath was removed and a small incision was made at the jugular access site with the skin knife. We then anesthetized the skin and subcutaneous tissue on the left chest and upper over the clavicle from tunneling of the catheter. A small incision was made inferior to the clavicle on the left chest and a 27 cm PermCath was tunneled from the left chest to the jugular access site. We then performed 2 serial dilations over the wire under fluoroscopic guidance and placed in the peel-away sheath over the wire, all using a Seldinger technique. The inner cannula and wire were removed. The tips of the catheter were passed through the peel-away sheath into the central system under fluoroscopic guidance in the peel-away sheath was removed. The tips were freely mobile at the SVC right atrial junctio n. There was a small bend in the catheter at the jugular access site which we were able to improve with some gentle manipulation. Once we had the catheter in correct position, both ports serena back and flushed easily and were heparin locked. Her final images confirmed the catheter was in good position, no kinks in the catheter, the tips freely mobile and the right atrium SVC junction, no pneumothorax on the right or left. We then irrigated the jugular access site and closed with a deep and superficial interrupted Monocryl suture and the skin was sealed with Dermabond. Prolene suture was used to close the left chest access site and secure the catheter to the chest wall in 2 [address]. Sterile dressings were then applied. The patient was then transferred back to his hospital bed in stable condition. He will proceed to dialysis this morning. ESTIMATED BLOOD LOSS: Approximately 5 mL. COMPLICATIONS: None PLAN: It is okay to use the left IJ PermCath for dialysis. Recommend continuing to encourage the patient to proceed with fistula creation versus AV graft due to occlusion of the right internal jugular vein limiting options for future dial ysis access with catheters. KEENAN MAK MD Nov 09, 2018 08:48
[2018-11-09] MEDS: cefTRIAXone SOD 2 GM in D5W MINI-BAG PLUS 50 ML IV SCH ×2 (09:24→18:01)
[2018-11-09] MEDS: NYSTATIN 100,000 UNITS/GM TOPICAL PWD 15 GM TOP SCH ×2 (09:24→20:42)
[2018-11-09] MEDS: HumaLOG INSULIN (NovoLOG) PER UNIT SC SCH ×4 (09:27→21:00)
[2018-11-09] MEDS: ASPIRIN 81 MG ENTERIC TAB PO SCH (09:28)
[2018-11-09] MEDS: GABAPENTIN 100 MG CAP PO SCH ×3 (09:28→20:39)
[2018-11-09] MEDS: atenoloL 50 MG TAB PO SCH (09:29)
[2018-11-09] MEDS: SENOKOT S TAB PO SCH ×2 (09:29→20:39)
[2018-11-09] MEDS: ATORVASTATIN 20 MG TAB PO SCH (09:29)
[2018-11-09] MEDS: amLODIPine 10 MG TAB PO SCH (09:29)
[2018-11-09] MEDS: PANTOPRAZOLE 40MG TAB (PROTONIX) PO SCH (09:30)
[2018-11-09] MEDS ORDERED: DARBEPOETIN 100 MCG/0.5 ML *DIALYSIS* SYRINGE (J0882) IV SCH (09:30)
[2018-11-09] MEDS: **hydrALAZINE HCL** 25 MG TAB PO SCH ×3 (09:32→20:39)
[2018-11-09 10:00] VITALS: BP 152/80
[2018-11-09 10:27] LABS: PERCENT SATURATION 24.4 % (19.7-50.0)
[2018-11-09] MEDS ORDERED: HEPARIN 1,000 UNITS/ML 10ML VIAL (FOR RADIOLOGY& DIALYSIS ONLY) XX ONE (11:00)
--- NOTE | 2018-11-09 11:40 | IPNPDOC ---
Date Seen The patient was seen on 11/09/18. Progress Note SUBJECTIVE: seen this morning, eating his breakfest while laying down. Continue to admit to back pain and that is why he is laying down and eating. Denies any chest pain, shortness of breath, trouble breathing nausea, vomiting. Continues to be constipated. OBJECTIVE PHYSICAL EXAMINATION: VITAL SIGNS: Please see below. GENERAL: Disheveled morbidly obese male laying in the hospital bed on his back. awake alert oriented speaking in complete sentences but muffled sound due to poor dentition HEENT: Moist mucous membranes no elevation in CVP CARDIOVASCULAR: S1 S2 regular no additional heart sounds appreciated. new permcath of the left chest wall, RESPIRATORY: Clear to auscultation anteriorly ABDOMINAL: Bowel sounds present abdomen soft but morbidly obese abdomen. slightly tender to light palpation, and has an umbilical hernia visible. EXTREMITIES: No clubbing cyanosis or edema evidence of chronic venous stasis in the left lower extremity. Right [id number] amputation and transmetatarsal amputation on the left PSYCHOLOGICAL: At baseline LABORATORY DATA, MICROBIOLOGY: Please see below. IMAGING STUDIES: Thoracic spine x-ray: There is moderate disc space narrowing at every level. Cross-table lateral views were obtained. Grade 1 thoracic spine compression fractures are suspected at multiple levels difficult to evaluate on this limited exam. There is a double lumen central venous catheter in place, the tip of which is in the region of the superior vena cava. Lumbar spine: Chronic changes Chest x-ray:No acute disease. Central venous tunnel catheter in place. Chest CT:Limited examination showing no acute disease CT abdomen and pelvis: Markedly limited exam showing no significant change from the prior exam. There is cholelithiasis, status quo. Renal cysts and r enovascular calcifications, status quo. Arterial aneurysms as described above, status quo. Other findings as described above. Lumbar spine MRI: Early discitis on L3-L4 disc levels. Echocardiogram 1. Mildly dilated left ventricle with mild mixed eccentric/concentric left ventricle hypertrophy. LV systolic function at the lower limits of normal. Left ventricular ejection fraction (LVEF) 50% (3D). 2. Moderate left atrial dilatation. 3. Moderate aortic valve sclerosis of a 3-cusp aortic valve. No aortic stenosis or regurgitation. 4. Mild mitral annular calcification with very mild mitral regurgitation. 5. No vegetations identified on the cardiac valves. ASSESSMENT AND PLAN: This is a 68-year-old man with end-stage renal disease presenting with fever. PROBLEMS: Bacteremia/Early discitis on L3-L4 -blood cultures x2 positive for E. Faecalis, possible source: tunneled dialysis catheter -Continue with antibiotics and continue with ID recommendations. -ECHO: above, negative for vegetation -ID consulted, appreciate recommendations, possible anitbiotics for 4-6 weeks? -Dr. Mak, consulted, placed PermCath today End-stage renal disease on hemodialysis -history of non-adherence -Tuesday//Tuesday -Consulted nephrology Diabetes: -ISS and gabapentin COPD -Breo at home -c/w duonebs Coronary artery disease -c/w aspirin, statin atenolol with holding parameters Hypertension and hypertensive heart disease -c/w atenolol and amlodipine with holding parameters, hydralazine Restless leg syndrome -c/w Requip daily at bedtime DVT -INR : 2-3 -c/w Coumadin Homelessness PFS cons - benefit from placement Morbid obesity -Complicating care Schizoaffective disorder - does not appear to be in any active medications GERD -discontinue home Pepcid -c/w Protonix 40 mg daily Anemia of end-stage renal disease -iron studies ordered -Aranesp Constipation -c/w Senokot S and Colace on board PT/OT -OOB for meals DVT PROPHYLAXIS: Coumadin VS, I&O, 24H, Fishbone Vital Signs/I&O Vital Signs Date Time Temp Pulse Resp B/P (MAP) Pulse Ox O2 Delivery O2 Flow Rate FiO2 11/09/18 09:32 152/80 11/09/18 09:29 67 11/09/18 08:26 20 94 2 11/09/18 07:03 97.7 11/03/18 09:40 Room Air I&O- Last 24 Hours up to 6 AM 11/09/18 06:00 Intake Total 2080 ml Output Total 390 ml Balance 1690 ml Laboratory Data 24H LABS Laboratory Tests 2 11/08/18 12:05: Bedside Glucose (Misc Panel) 192H 11/08/18 16:57: Bedside Glucose (Misc Panel) 219H 11/08/18 20:29: Bedside Glucose (Misc Panel) 215H 11/09/18 06:34: Nucleated Red Blood Cells % (auto) 0.0, Prothrombin Time 18.4H, Prothromb Time International Ratio 1.55, Anion Gap 6L, Glomerular Filtration Rate 12.0L, Blood Urea Nitrogen 49H, Creatinine 5.11H, Sodium Level 133L, Potassium Level 3.9, Chloride Level 102, Carbon Dioxide Level 25, Calcium Level 8.7L, Iron Level 39L, Total Iron Binding Capacity 160L, Transferrin % Saturation 24.4, Ferritin 1119H CBC/BMP Laboratory Tests 11/09/18 06:34 Red Blood Count 2.80 L, Mean Corpuscular Volume 103.2 H, Mean Corpuscular Hemoglobin 32.9, Mean Corpuscular Hemoglobin Concent 31.8 L, Red Cell Dist ribution Width 14.7 H, Calcium Level 8.7 L Microbiology Microbiology 11/07/18 Blood Culture - Preliminary, Resulted No Growth after 48 hours. All Specime... 11/05/18 Blood Culture - Preliminary, Resulted No Growth after 72 hours. All specime... 11/04/18 Blood Culture - Preliminary, Resulted No Growth after 72 hours. All specime... 11/04/18 Blood Culture - Final, Complete Enterococcus Faecalis 11/03/18 Blood Culture - Final, Complete Enterococcus Faecalis 11/03/18 Blood Culture - Final, Complete Enterococcus Faecalis 11/03/18 MRSA Screen - Final, Complete VIRGINIA MARTINEZ DO Nov 09, 2018 11:40
--- NOTE | 2018-11-09 12:21 | IPNPDOC ---
Date Seen The patient was seen on 11/09/18. Progress Note Postop check: Mr Cisneros is a 68yo gentleman s/p LIJ permcath placement earlier this morning. He is running on dialysis at the moment, and per his HD RN, the catheter is working well. No significant bleeding noted, no hematoma noted. Pt has no post procedure related pain but still c/o significant ongoing back pain. No other issues. Continue HD with LIJ permcath and continue to encourage pt to consider AVF vs AVG. VS, I&O, 24H, Fishbone Vital Signs/I&O Vital Signs Date Time Temp Pulse Resp B/P (MAP) Pulse Ox O2 Delivery O2 Flow Rate FiO2 11/09/18 11:42 2.0 11/09/18 10:00 98.5 69 20 152/80 (104) 95 11/03/18 09:40 Room Air I&O- Last 24 Hours up to 6 AM 11/09/18 06:00 Intake Total 2080 ml Output Total 390 ml Balance 1690 ml Laboratory Data 24H LABS Laboratory Tests 2 11/08/18 16:57: Bedside Glucose (Misc Panel) 219H 11/08/18 20:29: Bedside Glucose (Misc Panel) 215H 11/09/18 06:34: Nucleated Red Blood Cells % (auto) 0.0, Prothrombin Time 18.4H, Prothromb Time International Ratio 1.55, Anion Gap 6L, Glomerular Filtration Rate 12.0L, Blood Urea Nitrogen 49H, Creatinine 5.11H, Sodium Level 133L, Potassium Level 3.9, Chloride Level 102, Carbon Dioxide Level 25, Calcium Level 8.7L, Iron Level 39L, Total Iron Binding Capacity 160L, Transferrin % Saturation 24.4, Ferritin 1119H CBC/BMP Laboratory Tests 11/09/18 06:34 Red Blood Count 2.80 L, Mean Corpuscular Volume 103.2 H, Mean Corpuscular Hemoglobin 32.9, Mean Corpuscular Hemoglobin Concent 31.8 L, Red Cell Distribution Width 14.7 H, Calcium Level 8.7 L Microbiology Microbiology 11/07/18 Blood Culture - Preliminary, Resulted No Growth after 48 hours. All Specime... 11/05/18 Blood Culture - Preliminary, Resulted No Growth after 72 hours. All specime... 11/04/18 Blood Culture - Preliminary, Resulted No Growth after 72 hours. All specime... 11/04/18 Blood Culture - Final, Complete Enterococcus Faecalis 11/03/18 Blood Culture - Final, Complete Enterococcus Faecalis 11/03/18 Blood Culture - Final, Complete Enterococcus Faecalis 11/03/18 MRSA Screen - Final, Complete KEENAN VAIL MD Nov 09, 2018 12:21
--- NOTE | 2018-11-09 12:57 | IPN ---
DATE: 11/08/2018 SUBJECTIVE: The patient was seen and examined at the bedside today morning. He is afebrile, hemodynamically stable. He is laying in the bed. He got dialysis done yesterday and one liter of fluid was removed. He also got his right internal jugular (IJ) tunneled hemodialysis catheter removed. He is getting a catheter holiday. He continues to be on IV antibiotics. OBJECTIVE: VITAL SIGNS: Temperature is 98.1 degrees Fahrenheit, blood pressure 156/76, pulse is 70, respiratory of 18, saturating 96% on nasal cannula at three liters. INTAKE AND OUTPUT: Ultrafiltration with hemodialysis was one liter yesterday. Urine output is 200 mL. Weight in the bed scale is 102.4 kg. PHYSICAL EXAMINATION: GENERAL: The patient is awake, alert, oriented times two, laying in bed, in no apparent distress. HEAD AND NECK: Extraocular muscles intact. Pupils equally round and reactive to light. Mucous membranes are moist. Neck is supple. There is no jugular venous distention (JVD). CARDIOVASCULAR: S1, S2, regular rate. Trace edema of the left lower extremity. RESPIRATORY: Chest is clear to auscultation bilaterally. Bilateral equal air entry. No rales or rhonchi. ABDOMEN: Soft, obese, positive bowel sounds, nontender. No organomegaly. MUSCULOSKELETAL: The patient has a left transmetatarsal amputation and right above-knee amputation. CENTRAL NERVOUS SYSTEM (GROUP CONTRACT ANALYST): No focal deficit. Power is 5/5 in bilateral upper extremities. LABORATORY REVIEW: CBC showed a WBC of 10.4, hemoglobin 11, platelets are 205. BMP showed sodium 140, potassium 4.4, chloride 103, bicarbonate 30, BUN 40, creatinine is 4.2. CURRENT INPATIENT MEDICATIONS: The patient's medications were all reviewed by me. There is no significant change in the medications today as compared with yesterday. ASSESSMENT AND PLAN: 1. End-stage renal disease on hemodialysis. The patient was dialyzed yesterday and one liter of fluid was removed. Next hemodialysis session will be tomorrow. 2. Enterococcus bacteremia. The patient's Perma-Cath was removed yesterday. He will get two days of Perma-Cath holiday. He will get a new catheter placed tomorrow. Continue IV antibiotics as recommended by infectious disease. 3. Hypertension with end-stage renal disease. Volume status is better and that has helped improve blood pressure as well. Continue current antihypertensive regimen. 4. Anemia and end-stage renal disease. Hemoglobin is 11 which is optimal.
[2018-11-09 15:20] VITALS: BP 168/80
[2018-11-09] MEDS ORDERED: WARFARIN SOD 5 MG TAB PO ONE (17:00)
[2018-11-09] MEDS: WARFARIN SOD 2 MG TAB PO SCH (17:15)
--- NOTE | 2018-11-09 17:39 | IPN ---
DATE: 11/09/2018 SUBJECTIVE: The patient was seen and examined at the bedside today morning. He was getting ready to eat his breakfast in the morning when I saw him. He just got left IJ tunneled hemodialysis catheter placed today morning. He is going to have his dialysis done in the afternoon. OBJECTIVE: VITAL SIGNS: Temperature is 98.5 degrees Fahrenheit, blood pressure 152/80, pulse is 69, respiratory rate of 20, saturating 95% on nasal cannula at 2 liters. INTAKE AND OUTPUT: Urine output is 565 mL. Weight in the bed scale is 99.6 kg. PHYSICAL EXAMINATION: GENERAL: The patient is awake, alert, oriented times two, sitting up in the bed in no apparent distress. HEAD AND NECK EXAM: Extraocular muscles intact. Pupils equally round and reactive to light. Mucous membranes are moist. Neck is supple. There is no JVD. CARDIOVASCULAR: S1, S2, regular rate. Trace edema of lower extremity. RESPIRATORY: Chest is clear to auscultation bilaterally. Bilateral equal air entry. No rales or rhonchi. The patient is wearing nasal cannula. ABDOMEN: Soft, obese, positive bowel sounds. Nontender. No organomegaly. MUSCULOSKELETAL: The patient has left transmetatarsal side amputation and right above-knee amputation. DRUGLESS DOCTOR: No focal deficit. He is oriented times two. Mentation at his baseline. LABORATORY REVIEW: CBC showed WBC 12, hemoglobin 9.2, platelets are 207. BMP showed sodium 133, potassium 3.9, chloride 102, bicarbonate 25, BUN 49, creatinine is 5.1, calcium 8.7, iron is 39, TIBC is 160, transferrin saturation is 24.4, ferritin is 1119. CURRENT INPATIENT MEDICATIONS: The patient's medications were all reviewed by me. I have started the patient on Aranesp 200 mcg IV with dialysis. I have stopped his vitamin C tablet. He continues to be on Coumadin. ASSESSMENT/PLAN: 1. End-stage renal disease on hemodialysis. The patient is being dialyzed today according to his Tuesday, , Tuesday schedule. Ultrafiltration goal will be around 2 liters as tolerated by his blood pressure. 2. Anemia in end-stage renal disease. The patient has been started on Aranesp. Iron levels are adequate. 3. Enterococcus bacteremia. The patient got the catheter holiday for 2 days. He got a new catheter placed today morning. Repeat blood cultures from 11/05/2018 and 11/07/2018 are negative. 4. Hypertension with end-stage renal disease. Continue current antihypertensive regimen. Blood pressures are optimized. Further optimization of fluid status will also improve the blood pressure.
[2018-11-09] MEDS: rOPINIRole 0.25 MG TAB(REQUIP) PO SCH (20:39)
[2018-11-09 21:06] VITALS: BP 133/66
[2018-11-10] MEDS: IPRATROPIUM 0.5MG/ALBUTEROL 2.5MG INH SOL UD 3ML (DUONEB)(J7620) NEB SCH ×4 (02:00→19:26)
[2018-11-10] MEDS: ONDANSETRON 4MG/2ML VIAL (J2405) IV SCH ×3 (03:44→12:30)
[2018-11-10 05:52] VITALS: BP 137/67
[2018-11-10] MEDS: AMPICILLIN SOD 2 GM in D5W MINI-BAG PLUS 100 ML IV SCH ×2 (06:11→17:29)
[2018-11-10] MEDS: cefTRIAXone SOD 2 GM in D5W MINI-BAG PLUS 50 ML IV SCH ×2 (06:48→18:27)
[2018-11-10 07:25] LABS: HEMATOCRIT 32.2 % (42.0-52.0); HEMOGLOBIN 10.2 g/dl (13.5-17.5); MEAN CORPUSCULAR HEMOGLOBIN 31.9 pg (27.0-33.0); MEAN CORPUSCULAR HGB CONC 31.7 g/dl (32.0-36.5); MEAN CORPUSCULAR VOLUME 100.6 fl (80.0-96.0); PLATELET COUNT, AUTOMATED 235 10^3/uL (150-450); WHITE BLOOD COUNT 12.4 10^3/uL (4.0-10.0)
[2018-11-10 07:35] LABS: INR 2.02; PROTHROMBIN TIME 22.6 SECONDS (11.8-14.0)
[2018-11-10 07:50] LABS: CALCIUM LEVEL 9.2 MG/DL (8.8-10.2); CREATININE FOR GFR 3.99 MG/DL (0.70-1.30); POTASSIUM SERUM 4.2 MEQ/L (3.5-5.1)
[2018-11-10] MEDS: HumaLOG INSULIN (NovoLOG) PER UNIT SC SCH ×4 (08:09→20:24)
[2018-11-10] MEDS: NYSTATIN 100,000 UNITS/GM TOPICAL PWD 15 GM TOP SCH ×2 (08:09→20:31)
[2018-11-10] MEDS: GABAPENTIN 100 MG CAP PO SCH ×3 (08:10→20:31)
[2018-11-10] MEDS: ATORVASTATIN 20 MG TAB PO SCH (08:10)
[2018-11-10] MEDS: ASPIRIN 81 MG ENTERIC TAB PO SCH (08:10)
[2018-11-10] MEDS: SENOKOT S TAB PO SCH ×2 (08:11→20:30)
[2018-11-10] MEDS: PANTOPRAZOLE 40MG TAB (PROTONIX) PO SCH (08:11)
[2018-11-10] MEDS: amLODIPine 10 MG TAB PO SCH (08:12)
[2018-11-10] MEDS: NORCO, ANEXSIA 5/325MG TABLET (HYDROcodone/ACETAMINOPHEN) PO PRN ×3 (08:12→20:31)
[2018-11-10] MEDS: **hydrALAZINE HCL** 25 MG TAB PO SCH ×3 (08:12→20:31)
[2018-11-10] MEDS: atenoloL 50 MG TAB PO SCH (08:13)
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
[2018-11-10 14:00] VITALS: BP 117/70
--- NOTE | 2018-11-10 14:53 | IPNPDOC ---
Date Seen The patient was seen on 11/10/18. Progress Note SUBJECTIVE: Seen sitting up eating his lunch. Continue to admit to back pain and that he is being poisoned with bacteria and that's why he has the infection. Very tangential in speech today But he does denies any chest pain, shortness of breath, trouble breathing nausea, vomiting. Continues to dying have any bowel movement since admission. OBJECTIVE PHYSICAL EXAMINATION: VITAL SIGNS: Please see below. GENERAL: Disheveled morbidly obese male sitting up in a wheelchair eating lunch. awake alert oriented speaking in complete sentences but muffled sound due to poor dentition HEENT: Moist mucous membranes no elevation in CVP CARDIOVASCULAR: S1 S2 regular no additional heart sounds appreciated. new permcath of the left chest wall, RESPIRATORY: Clear to auscultation anteriorly ABDOMINAL: Bowel sounds present abdomen soft but morbidly obese abdomen. slightly tender to light palpation, and has an umbilical hernia visible. EXTREMITIES: No clubbing cyanosis or edema evidence of chronic venous stasis in the left lower extremity. Right [id number] amputation and transmetatarsal amputation on the left PSYCHOLOGICAL: At baseline tangential speech LABORATORY DATA, MICROBIOLOGY: Please see below. IMAGING STUDIES: 1. Thoracic spine x-ray: There is moderate disc space narrowing at every level. Cross-table lateral views were obtained. Grade 1 thoracic spine compression fractures are suspected at multiple levels difficult to evaluate on this limited exam. There is a double lumen central venous catheter in place, the tip of which is in the region of the superior vena cava. 2. Lumbar spine: Chronic changes 3. Chest x-ray:No acute disease. Central venous tunnel catheter in place. 4. Chest CT:Limited examination showing no acute disease 5. CT abdomen and pelvis: Markedly limited exam showing no significant change from the prior exam. There is cholelithiasis, status quo. Renal cysts and renovascular calcifications, status quo. Arterial aneurysms as described above, status quo. Other findings as described above. 6. Lumbar spine MRI: Early discitis on L3-L4 disc levels. Echocardiogram 1. Mildly dilated left ventricle with mild mixed eccentric/concentric left ventricle hypertrophy. LV systolic function at the lower limits of normal. Left ventricular ejection fraction (LVEF) 50% (3D). 2. Moderate left atrial dilatation. 3. Moderate aortic valve sclerosis of a 3-cusp aortic valve. No aortic stenosis or regurgitation. 4. Mild mitral annular calcification with very mild mitral regurgitation. 5. No vegetations identified on the cardiac valves. ASSESSMENT AND PLAN: This is a 68-year-old man with end-stage renal disease presenting with fever. PROBLEMS: Bacteremia/Early discitis on L3-L4 -blood cultures x2 positive for E. Faecalis, possible source: tunneled dialysis catheter -Continue with antibiotics and with ID recommendations. -ECHO: above, negative for vegetation -ID consulted, appreciate recommendations, possible IV anitbiotics for 4-6 weeks, PICC placement -trend CRP, ESR -Norcro on board for pain control End-stage renal disease on hemodialysis -history of non-adherence -Tuesday//Tuesday -Consulted nephrology Diabetes: -ISS and gabapentin COPD -Breo at home -c/w duonebs Coronary artery disease -c/w aspirin, statin atenolol with holding parameters Hypertension and hypertensive heart disease -c/w atenolol and amlodipine with holding parameters, hydralazine Restless leg syndrome -c/w Requip daily at bedtime DVT -INR : 2-3 -c/w Coumadin Homelessness PFS cons - benefit from placement Morbid obesity -Complicating care Schizoaffective disorder - does not appear to be in any active medications -Consulted psychiatry to see if he needs it placed on any medication for he has some tangential thoughts. GERD -discontinue home Pepcid -c/w Protonix 40 mg daily Anemia of end-stage renal disease -iron studies ordered -Aranesp Constipation -c/w Senokot S, MOM, hernando and Colace PRN on board PT/OT -OOB for meals DVT PROPHYLAXIS: Coumadin VS, I&O, 24H, Fishbone Vital Signs/I&O Vital Signs Date Time Temp Pulse Resp B/P (MAP) Pulse Ox O2 Delivery O2 Flow Rate FiO2 11/10/18 14:00 98.6 74 16 117/70 (86) 95 11/10/18 09:00 2.0 I&O- Last 24 Hours up to 6 AM 11/10/18 06:00 Intake Total 1245 ml Output Total 4100 ml Balance -2855 ml Laboratory Data 24H LABS Laboratory Tests 2 11/09/18 17:44: Bedside Glucose (Misc Panel) 215H 11/09/18 21:08: Bedside Glucose (Misc Panel) 171H 11/10/18 06:54: Nucleated Red Blood Cells % (auto) 0.0, Prothrombin Time 22.6H, Prothromb Time International Ratio 2.02, Anion Gap 6L, Glomerular Filtration Rate 16.0L, Blood Urea Nitrogen 32H, Creatinine 3.99H, Sodium Level 135L, Potassium Level 4.2, Chloride Level 101, Carbon Dioxide Level 28, Calcium Level 9.2 11/10/18 11:22: Bedside Glucose (Misc Panel) 178H CBC/BMP Laboratory Tests 11/10/18 06:54 Red Blood Count 3.20 L, Mean Corpuscular Volume 100.6 H, Mean Corpuscular Hemoglobin 31.9, Mean Corpuscular Hemoglobin Concent 31.7 L, Red Cell Distribution Width 14.6 H, Calcium Level 9.2 Microbiology Microbiology 11/07/18 Blood Culture - Preliminary, Resulted No Growth after 72 hours. All specime... 11/05/18 Blood Culture - Preliminary, Resulted No Growth after 72 hours. All specime... 11/04/18 Blood Culture - Final, Complete NO GROWTH AFTER 5 DAYS 11/04/18 Blood Culture - Final, Complete Enterococcus Faecalis 11/03/18 Blood Culture - Final, Complete Enterococcus Faecalis 11/03/18 Blood Culture - Final, Complete Enterococcus Faecalis 11/03/18 MRSA Screen - Final, Complete VIRGINIA MARTINEZ DO Nov 10, 2018 14:53
[2018-11-10] MEDS ORDERED: ONDANSETRON 4MG/2ML VIAL (J2405) IV PRN (15:15)
--- NOTE | 2018-11-10 16:50 | IPN ---
DATE: 11/10/2018 SUBJECTIVE: The patient was seen and examined the bedside today morning. He is afebrile, hemodynamically stable. He was dialyzed yesterday. He tolerated the hemodialysis procedure well. Denies any active complaints apart from pain in the lower back. OBJECTIVE: Vital signs: Temperature is 98.7 degrees Fahrenheit, blood pressure 137/67, pulse is 64, respiratory of 16, saturating 90% on 2 liters via nasal cannula. Intake and output: Urine output recorded is 300 mL. Ultrafiltration with hemodialysis was 3.5 liters yesterday. Weight in the bed scale is 97.6 kg. PHYSICAL EXAMINATION: GENERAL: The patient is awake, alert, oriented times two, lying in bed in no apparent distress. HEAD AND NECK: Extraocular muscles intact. Pupils equally round and reactive to light. Mucous membranes are moist. Neck is supple. There is no jugular venous distention (JVD). CARDIOVASCULAR: S1, S2, regular rate. Trace edema of the lower extremities. RESPIRATORY: Chest is clear to auscultation bilaterally. Bilateral equal air entry. No rales or rhonchi. ABDOMEN: Soft, obese. Positive bowel sounds. Nontender. MUSCULOSKELETAL: Left transmetatarsal amputation and right above-knee amputation. CENTRAL NERVOUS SYSTEM: No focal deficit. Power is 5/5 in bilateral upper extremities. LABORATORY REVIEW: CBC showed a WBC 12.4, hemoglobin 10.2, platelets are 235. BMP showed sodium 135, potassium 4.2, chloride 101, bicarbonate 28, BUN 32, creatinine is 3.9. CURRENT INPATIENT MEDICATIONS: The patient's medications were all reviewed by me. There is no change in the medications today as compared with yesterday. ASSESSMENT AND PLAN: 1. End-stage renal disease, on hemodialysis. The patient's regular dialysis days are Tuesday, , Tuesday. He was dialyzed yesterday. Next dialysis session will be tomorrow morning. 2. Anemia and end-stage renal disease. Hemoglobin level is optimal. Continue current dose of Aranesp. 3. Enterococcus bacteremia. The patient got the catheter removed, and a new catheter was placed yesterday. Repeat cultures are negative. He continues to be on synergistic doses of ampicillin and ceftriaxone. 4. Hypertension with end-stage renal disease. Volume status is optimal. Continue current dose of amlodipine 10 mg daily, atenolol 50 mg daily, hydralazine 25 mg by mouth three times a day.
[2018-11-10] MEDS: WARFARIN SOD 2 MG TAB PO SCH (17:27)
[2018-11-10 18:00] VITALS: BP 144/67
[2018-11-10 20:07] VITALS: BP 138/71
[2018-11-10] MEDS: MOM 30ML SUSPENSION UDC PO SCH (20:30)
[2018-11-10] MEDS: rOPINIRole 0.25 MG TAB(REQUIP) PO SCH (20:31)
[2018-11-11] MEDS: IPRATROPIUM 0.5MG/ALBUTEROL 2.5MG INH SOL UD 3ML (DUONEB)(J7620) NEB SCH ×4 (02:00→19:19)
[2018-11-11] MEDS: AMPICILLIN SOD 2 GM in D5W MINI-BAG PLUS 100 ML IV SCH ×2 (05:56→17:57)
[2018-11-11] MEDS: MOM 30ML SUSPENSION UDC PO SCH ×2 (05:57→21:28)
[2018-11-11] MEDS: cefTRIAXone SOD 2 GM in D5W MINI-BAG PLUS 50 ML IV SCH ×2 (05:57→18:53)
[2018-11-11] MEDS: ASPIRIN 81 MG ENTERIC TAB PO SCH (06:00)
[2018-11-11] MEDS: SENOKOT S TAB PO SCH ×2 (06:00→21:28)
[2018-11-11] MEDS: GABAPENTIN 100 MG CAP PO SCH ×3 (06:00→21:32)
[2018-11-11] MEDS: ATORVASTATIN 20 MG TAB PO SCH (06:00)
[2018-11-11 06:03] VITALS: BP 154/53
[2018-11-11] MEDS: **hydrALAZINE HCL** 25 MG TAB PO SCH ×3 (06:03→21:32)
[2018-11-11] MEDS: amLODIPine 10 MG TAB PO SCH (06:04)
[2018-11-11] MEDS: atenoloL 50 MG TAB PO SCH (06:04)
[2018-11-11] MEDS: NORCO, ANEXSIA 5/325MG TABLET (HYDROcodone/ACETAMINOPHEN) PO PRN ×2 (06:04→15:39)
[2018-11-11] MEDS: PANTOPRAZOLE 40MG TAB (PROTONIX) PO SCH (06:05)
[2018-11-11] MEDS: NYSTATIN 100,000 UNITS/GM TOPICAL PWD 15 GM TOP SCH ×2 (06:05→21:32)
[2018-11-11 06:09] LABS: HEMATOCRIT 32.4 % (42.0-52.0); HEMOGLOBIN 10.3 g/dl (13.5-17.5); MEAN CORPUSCULAR HEMOGLOBIN 32.7 pg (27.0-33.0); MEAN CORPUSCULAR HGB CONC 31.8 g/dl (32.0-36.5); MEAN CORPUSCULAR VOLUME 102.9 fl (80.0-96.0); PLATELET COUNT, AUTOMATED 237 10^3/uL (150-450); RED BLOOD COUNT 3.15 10^6/uL (4.30-6.10); WHITE BLOOD COUNT 12.9 10^3/uL (4.0-10.0)
[2018-11-11 06:22] LABS: INR 2.23; PROTHROMBIN TIME 24.5 SECONDS (11.8-14.0)
[2018-11-11 06:29] LABS: ERYTHROCYTE SEDIMENTATION RATE > 140 mm/hr (0-20)
[2018-11-11 06:34] LABS: C REACTIVE PROTEIN QUANTITATIV 9.2 MG/DL (0.00-0.30); CREATININE FOR GFR 5.17 MG/DL (0.70-1.30); GLOMERULAR FILTRATION RATE 11.9 (>49); POTASSIUM SERUM 4.1 MEQ/L (3.5-5.1)
[2018-11-11] MEDS ORDERED: FLEET OIL RETENTION ENEMA PR ONE (07:30)
[2018-11-11] MEDS: HumaLOG INSULIN (NovoLOG) PER UNIT SC SCH ×4 (07:30→21:00)
[2018-11-11] MEDS ORDERED: LORazepam 2 MG/ML VIAL (J2060) IV ONE (08:30)
[2018-11-11] MEDS ORDERED: HEPARIN 1,000 UNITS/ML 10ML VIAL (FOR RADIOLOGY& DIALYSIS ONLY) XX ONE (09:45)
[2018-11-11] MEDS ORDERED: HEPARIN 1,000 UNITS/ML 10ML VIAL (FOR RADIOLOGY& DIALYSIS ONLY) IV ONE (09:45)
--- NOTE | 2018-11-11 12:56 | IPNPDOC ---
Date Seen The patient was seen on 11/11/18. Progress Note SUBJECTIVE: Continue to admit to back pain and it is not improving. He continues to believe that he is being poisoned with bacteria and that's why he has the infection. He does denies any chest pain, shortness of breath, trouble breathing nausea, vomiting. Continue to have no bowl movement since admission. OBJECTIVE PHYSICAL EXAMINATION: VITAL SIGNS: Please see below. GENERAL: Disheveled morbidly obese male sitting up in a wheelchair eating lunch. awake alert oriented speaking in complete sentences but muffled sound due to poor dentition HEENT: Moist mucous membranes no elevation in CVP CARDIOVASCULAR: S1 S2 regular no additional heart sounds appreciated. new permcath of the left chest wall, RESPIRATORY: Clear to auscultation anteriorly ABDOMINAL: Bowel sounds present abdomen soft but morbidly obese abdomen. slightly tender to light palpation, and has an umbilical hernia visible. BACK: Tenderness on palpation of the lumbar spine paraspinal. No erythema and no swelling noted EXTREMITIES: No clubbing cyanosis or edema evidence of chronic venous stasis in the left lower extremity. Right [id number] amputation and transmetatarsal amputation on the left PSYCHOLOGICAL: At baseline tangential speech LABORATORY DATA, MICROBIOLOGY: Please see below. IMAGING STUDIES: 1. Thoracic spine x-ray: There is moderate disc space narrowing at every level. Cross-table lateral views were obtained. Grade 1 thoracic spine compression fractures are suspected at multiple levels difficult to evaluate on this limited exam. There is a double lumen central venous catheter in place, the tip of which is in the region of the superior vena cava. 2. Lumbar spine: Chronic changes 3. Chest x-ray:No acute disease. Central venous tunnel catheter in place. 4. Chest CT:Limited examination showing no acute disease 5. CT abdomen and pelvis: Markedly limited exam showing no significant change from the prior exam. There is cholelithiasis, status quo. Renal cysts and renovascular calcifications, status quo. Arterial aneurysms as described above, status quo. Other findings as described above. 6. Lumbar spine MRI: Early discitis on L3-L4 disc levels. Echocardiogram 1. Mildly dilated left ventricle with mild mixed eccentric/concentric left ventricle hypertrophy. LV systolic function at the lower limits of normal. Left ventricular ejection fraction (LVEF) 50% (3D). 2. Moderate left atrial dilatation. 3. Moderate aortic valve sclerosis of a 3-cusp aortic valve. No aortic stenosis or regurgitation. 4. Mild mitral annular calcification with very mild mitral regurgitation. 5. No vegetations identified on the cardiac valves. ASSESSMENT AND PLAN: This is a 68-year-old man with end-stage renal disease presenting with fever. PROBLEMS: Bacteremia/Early discitis on L3-L4 -blood cultures x2 positive for E. Faecalis, possible source: tunneled dialysis catheter -Continue with antibiotics and with ID recommendations. -ECHO: above, negative for vegetation -ID consulted, appreciate recommendations, IV anitbiotics for 4-6 weeks, PICC placement Tuesday morning -trend CRP, ESR -repeat MRI to assess for epidural abscess -Deidre on board for pain control End-stage renal disease on hemodialysis -history of non-adherence -Tuesday//Tuesday -Consulted nephrology Diabetes: -ISS and gabapentin COPD -Breo at home -c/w duonebs Coronary artery disease -c/w aspirin, statin atenolol with holding parameters Hypertension and hypertensive heart disease -c/w atenolol and amlodipine with holding parameters, hydralazine Restless leg syndrome -c/w Requip daily at bedtime DVT -INR : 2-3 -c/w Coumadin Homelessness PFS cons - benefit from placement Morbid obesity -Complicating care Schizoaffective disorder - does not appear to be in any active medications -Consulted psychiatry, appreciate recommendations GERD -discontinue home Pepcid -c/w Protonix 40 mg daily Anemia of end-stage renal disease -iron studies ordered -Aranesp Constipation -c/w Senokot S, MOM, hernando and Colace PRN on board -Mineral EnemaX1 PT/OT -OOB for meals DVT PROPHYLAXIS: Coumadin Disposition: MRI evaluate for epidural abscess. PICC placement Tuesday. If clinically stable and can be discharged to keep home to continue long-term IV antibiotics VS, I&O, 24H, Fishbone Vital Signs/I&O Vital Signs Date Time Temp Pulse Resp B/P (MAP) Pulse Ox O2 Delivery O2 Flow Rate FiO2 11/11/18 06:34 16 11/11/18 06:04 66 154/53 11/11/18 06:03 97.9 93 2.0 11/10/18 19:27 Nasal Cannula I&O- Last 24 Hours up to 6 AM 11/11/18 06:00 Intake Total 980 ml Output Total 450 ml Balance 530 ml Laboratory Data 24H LABS Laboratory Tests 2 11/10/18 16:33: Bedside Glucose (Misc Panel) 314H 11/10/18 20:12: Bedside Glucose (Misc Panel) 246H 11/11/18 05:41: Nucleated Red Blood Cells % (auto) 0.2H, Erythrocyte Sedimentation Rate > 140H, Prothrombin Time 24.5H, Prothromb Time International Ratio 2.23, Anion Gap 7L, Glomerular Filtration Rate 11.9L, Blood Urea Nitrogen 45H, Creatinine 5.17H, Sodium Level 134L, Potassium Level 4.1, Chloride Level 100, Carbon Dioxide Level 27, Calcium Level 9.0, C-Reactive Protein, Quantitative 9.20H 11/11/18 12:26: Bedside Glucose (Misc Panel) 153H CBC/BMP Laboratory Tests 11/11/18 05:41 Red Blood Count 3.15 L, Mean Corpuscular Volume 102.9 H, Mean Corpuscular Hemoglobin 32.7, Mean Corpuscular Hemoglobin Concent 31.8 L, Red Cell Distribution Width 14.6 H, Calcium Level 9.0 Microbiology Microbiology 11/07/18 Blood Culture - Preliminary, Resulted No Growth after 72 hours. All specime... 11/05/18 Blood Culture - Final, Complete NO GROWTH AFTER 5 DAYS 11/04/18 Blood Culture - Final, Complete NO GROWTH AFTER 5 DAYS 11/04/18 Blood Culture - Final, Complete Enterococcus Faecalis 11/03/18 Blood Culture - Final, Complete Enterococcus Faecalis 11/03/18 Blood Culture - Final, Complete Enterococcus Faecalis 11/03/18 MRSA Screen - Final, Complete VIRGINIA MARTINEZ DO Nov 11, 2018 12:56
[2018-11-11 14:00] VITALS: BP 150/64
--- NOTE | 2018-11-11 16:49 | REPVR ---
EXAM: MR Lumbar Spine Without Contrast. EXAM DATE/TIME: 11/11/2018 4:20 PM CLINICAL HISTORY: 68 years old, male; Condition or disease; Other: Epidural abcess; Prior surgery; Surgery date: 6+ months; Surgery type: Prior infection removal; Additional info: Epidural abscess TECHNIQUE: Imaging protocol: Multiplanar magnetic resonance images of the lumbar spine without intravenous contrast. COMPARISON: MRI-Spine, L.S. without con 11/04/2018 10:07 AM FINDINGS: Vertebrae: Unremarkable. Spinal cord: Normal signal. No cord compression. L1-L2: No significant disc disease. No significant spinal stenosis. L2-L3: No significant disc disease. No significant spinal stenosis. L3-L4: Examination demonstrates abnormal marrow signal in the inferior aspect of L3 and superior aspect of L4 associated with disc space narrowing at L3-4. There is a linear focus of T2 intermediate signal measuring 2.2 x 9 mm projecting over the left paracentral aspect of the spinal canal not fully characterized on this limited scan. L4-L5: Mild annular bulge. No significant spinal stenosis. L5-S1: Mild annular bulge. No significant spinal stenosis. Soft tissues: Unremarkable. Other findings: Examination limited as the patient was unable to fully complete examination and as such no pulse sequences were obtained. Examination limited to a coronal T2 STIR image, and sagittal T1 and T2-weighted images. IMPRESSION: Examination demonstrates abnormal marrow signal in the inferior aspect of L3 and superior aspect of L4 associated with disc space narrowing at L3-4. There is a linear focus of T2 intermediate signal measuring 2.2 x 9 mm projecting over the left paracentral aspect of the spinal canal not fully characterized on this limited scan. Suggest repeat study when patient able to tolerate a complete examination. Electronically signed by: Stephon Atkinson On 11/11/2018 16:49:10 PM
[2018-11-11] MEDS: ACETAMINOPHEN 500 MG TAB PO PRN (17:11)
[2018-11-11] MEDS: WARFARIN SOD 2 MG TAB PO SCH (17:11)
[2018-11-11] MEDS: rOPINIRole 0.25 MG TAB(REQUIP) PO SCH (21:28)
[2018-11-11 22:00] VITALS: BP 141/48
[2018-11-12] MEDS: IPRATROPIUM 0.5MG/ALBUTEROL 2.5MG INH SOL UD 3ML (DUONEB)(J7620) NEB SCH ×4 (01:48→19:42)
[2018-11-12] MEDS: NORCO, ANEXSIA 5/325MG TABLET (HYDROcodone/ACETAMINOPHEN) PO PRN ×4 (02:35→18:41)
[2018-11-12 05:57] LABS: HEMATOCRIT 33.3 % (42.0-52.0); HEMOGLOBIN 10.6 g/dl (13.5-17.5); MEAN CORPUSCULAR HGB CONC 31.8 g/dl (32.0-36.5); MEAN CORPUSCULAR VOLUME 103.7 fl (80.0-96.0); PLATELET COUNT, AUTOMATED 259 10^3/uL (150-450); RED BLOOD COUNT 3.21 10^6/uL (4.30-6.10); WHITE BLOOD COUNT 12.3 10^3/uL (4.0-10.0)
[2018-11-12 06:09] LABS: INR 1.86; PROTHROMBIN TIME 21.2 SECONDS (11.8-14.0)
[2018-11-12] MEDS: AMPICILLIN SOD 2 GM in D5W MINI-BAG PLUS 100 ML IV SCH ×2 (06:11→18:46)
[2018-11-12 06:14] LABS: C REACTIVE PROTEIN QUANTITATIV 11.3 MG/DL (0.00-0.30); CALCIUM LEVEL 8.9 MG/DL (8.8-10.2); CREATININE FOR GFR 4.29 MG/DL (0.70-1.30); GLOMERULAR FILTRATION RATE 14.7 (>49); POTASSIUM SERUM 4.1 MEQ/L (3.5-5.1)
[2018-11-12] MEDS: cefTRIAXone SOD 2 GM in D5W MINI-BAG PLUS 50 ML IV SCH ×2 (06:48→18:46)
[2018-11-12] MEDS: SENOKOT S TAB PO SCH ×2 (07:58→21:33)
[2018-11-12] MEDS: atenoloL 50 MG TAB PO SCH (07:58)
[2018-11-12] MEDS: PANTOPRAZOLE 40MG TAB (PROTONIX) PO SCH (07:58)
[2018-11-12] MEDS: ATORVASTATIN 20 MG TAB PO SCH (07:58)
[2018-11-12] MEDS: amLODIPine 10 MG TAB PO SCH (07:58)
[2018-11-12] MEDS: **hydrALAZINE HCL** 25 MG TAB PO SCH ×3 (07:59→21:33)
[2018-11-12] MEDS: HumaLOG INSULIN (NovoLOG) PER UNIT SC SCH ×4 (07:59→21:33)
[2018-11-12] MEDS: GABAPENTIN 100 MG CAP PO SCH ×3 (07:59→21:33)
[2018-11-12] MEDS: ASPIRIN 81 MG ENTERIC TAB PO SCH (08:00)
[2018-11-12] MEDS: MOM 30ML SUSPENSION UDC PO SCH ×2 (08:01→21:33)
[2018-11-12] MEDS: NYSTATIN 100,000 UNITS/GM TOPICAL PWD 15 GM TOP SCH ×2 (08:02→21:33)
--- NOTE | 2018-11-12 10:16 | IPNPDOC ---
Subjective Date Seen The patient was seen on 11/12/18. Subjective Chief Complaint/HPI Patient seen and examined at the bedside. He reports that he is doing better today. Denies any worsening of his lower back pain. The patient has remained afebrile with a stable white blood cell count. No acute overnight events noted. Objective Physical Examination General Exam: Positive: Alert, Cooperative, No Acute Distress ENT Exam: Positive: Atraumatic, Mucous membr. moist/pink Neck Exam: Negative: JVD Chest Exam: Positive: Clear to auscultation, Normal air movement Heart Exam: Positive: Rate Normal, Normal S1, Normal S2 Abdomen Exam: Positive: Soft; Negative: Tenderness Extremity Exam: Positive: Other (right [id number] amputation noted); Negative: Tenderness, Swelling Neuro Exam: Positive: Sensation Intact Assessment /Plan Plan/VTE VTE Prophylaxis Ordered?: Yes Plan Bacteremia/Early discitis on L3-L4 -blood cultures x2 positive for E. Faecalis, possible source: tunneled dialysis catheter -Continue with antibiotics and with ID recommendations. -TE-ECHO: above, negative for vegetation -ID consulted, appreciate recommendations, IV antibiotics for 4-6 weeks, PICC placement Tuesday morning -trend CRP, ESR -Repeat MRI on 11/11 notable for abnormal marrow signal in the inferior aspect of L3, superior aspect of L4. There is also a linear focus of T2 intermediate signal measuring 2.2 x 9 mm projecting over the left paracentral aspect of the spinal canal. No definitive fluid collection or abscess noted on report. Repeat MRI of the LS was recommended. We will discuss this further with radiology. End-stage renal disease on hemodialysis -history of non-adherence -Tuesday//Tuesday -Consulted nephrology Diabetes: -ISS and gabapentin COPD -Breo at home -c/w duonebs Coronary artery disease -c/w aspirin, statin atenolol with holding parameters Hypertension and hypertensive heart disease -c/w atenolol and amlodipine with holding parameters, hydralazine Restless leg syndrome -c/w Requip daily at bedtime DVT -INR : 2-3 -c/w Coumadin Homelessness PFS cons - benefit from placement Morbid obesity -Complicating care Schizoaffective disorder - does not appear to be in any active medications -Consulted psychiatry, appreciate recommendations GERD -discontinue home Pepcid -c/w Protonix 40 mg daily Anemia of end-stage renal disease -iron studies ordered -Aranesp Constipation -c/w Senokot S, MOM, hernando and Colace PRN on board -Mineral EnemaX1 PT/OT -OOB for meals DVT PROPHYLAXIS: Coumadin VS, I&O, 24H, Fishbone Vital Signs/I&O Vital Signs Date Time Temp Pulse Resp B/P (MAP) Pulse Ox O2 Delivery O2 Flow Rate FiO2 11/12/18 07:59 141/48 11/12/18 07:58 78 11/12/18 07:18 20 11/11/18 22:00 98.5 91 11/11/18 06:03 2.0 11/10/18 19:27 Nasal Cannula I&O- Last 24 Hours up to 6 AM 11/12/18 06:00 Intake Total 420 ml Output Total 3350 ml Balance -2930 ml Laboratory Data 24H LABS Laboratory Tests 2 11/11/18 12:26: Bedside Glucose (Misc Panel) 153H 11/11/18 17:12: Bedside Glucose (Misc Panel) 176H 11/11/18 20:20: Bedside Glucose (Misc Panel) 195H 11/12/18 05:26: Prothrombin Time 21.2H, Prothromb Time International Ratio 1.86 11/12/18 05:27: Nucleated Red Blood Cells % (auto) 0.4H, Anion Gap 9, Glomerular Filtration Rate 14.7L, Blood Urea Nitrogen 33H, Creatinine 4.29H, Sodium Level 135L, Potassium Level 4.1, Chloride Level 99, Carbon Dioxide Level 27, Calcium Level 8.9, C- Reactive Protein, Quantitative 11.30H CBC/BMP Laboratory Tests 11/12/18 05:27 Red Blood Count 3.21 L, Mean Corpuscular Volume 103.7 H, Mean Corpuscular Hemoglobin 33.0, Mean Corpuscular Hemoglobin Concent 31.8 L, Red Cell Distribution Width 15.1 H, Calcium Level 8.9 Microbiology Microbiology 11/07/18 Blood Culture - Final, Complete NO GROWTH AFTER 5 DAYS 11/05/18 Blood Culture - Final, Complete NO GROWTH AFTER 5 DAYS 11/04/18 Blood Culture - Final, Complete NO GROWTH AFTER 5 DAYS 11/04/18 Blood Culture - Final, Complete Enterococcus Faecalis 11/03/18 Blood Culture - Final, Complete Enterococcus Faecalis 11/03/18 Blood Culture - Final, Complete Enterococcus Faecalis 11/03/18 MRSA Screen - Final, Complete CHEO MARSH MD Nov 12, 2018 10:16
[2018-11-12 10:29] LABS: ERYTHROCYTE SEDIMENTATION RATE 127 mm/hr (0-20)
[2018-11-12 14:00] VITALS: BP 141/62
[2018-11-12] MEDS: DOCUSATE SODIUM 100 MG CAP PO PRN (18:45)
[2018-11-12] MEDS: CYCLOBENZAPRINE 5MG TABLET PO PRN (18:45)
[2018-11-12 21:31] VITALS: BP 138/66
[2018-11-12] MEDS: rOPINIRole 0.25 MG TAB(REQUIP) PO SCH (21:33)
[2018-11-13] MEDS: IPRATROPIUM 0.5MG/ALBUTEROL 2.5MG INH SOL UD 3ML (DUONEB)(J7620) NEB SCH ×2 (01:40→09:49)
[2018-11-13] MEDS: NORCO, ANEXSIA 5/325MG TABLET (HYDROcodone/ACETAMINOPHEN) PO PRN ×4 (01:42→15:40)
[2018-11-13] MEDS: AMPICILLIN SOD 2 GM in D5W MINI-BAG PLUS 100 ML IV SCH ×2 (05:37→17:45)
[2018-11-13 06:00] VITALS: BP 137/49
[2018-11-13] MEDS: CYCLOBENZAPRINE 5MG TABLET PO PRN ×2 (06:44→21:32)
[2018-11-13] MEDS: cefTRIAXone SOD 2 GM in D5W MINI-BAG PLUS 50 ML IV SCH ×2 (06:44→17:45)
[2018-11-13 06:52] LABS: HEMATOCRIT 34.6 % (42.0-52.0); HEMOGLOBIN 11.2 g/dl (13.5-17.5); MEAN CORPUSCULAR HEMOGLOBIN 33.2 pg (27.0-33.0); MEAN CORPUSCULAR HGB CONC 32.4 g/dl (32.0-36.5); MEAN CORPUSCULAR VOLUME 102.7 fl (80.0-96.0); PLATELET COUNT, AUTOMATED 257 10^3/uL (150-450); RED BLOOD COUNT 3.37 10^6/uL (4.30-6.10); WHITE BLOOD COUNT 14.7 10^3/uL (4.0-10.0)
[2018-11-13 07:16] LABS: ERYTHROCYTE SEDIMENTATION RATE 99 mm/hr (0-20)
[2018-11-13 07:18] LABS: C REACTIVE PROTEIN QUANTITATIV 9.58 MG/DL (0.00-0.30); CALCIUM LEVEL 9.3 MG/DL (8.8-10.2); CREATININE FOR GFR 5.3 MG/DL (0.70-1.30); GLOMERULAR FILTRATION RATE 11.5 (>49); MAGNESIUM LEVEL 3.4 MG/DL (1.8-2.4)
[2018-11-13] MEDS: ASPIRIN 81 MG ENTERIC TAB PO SCH (08:43)
[2018-11-13] MEDS: amLODIPine 10 MG TAB PO SCH (08:43)
[2018-11-13] MEDS: HumaLOG INSULIN (NovoLOG) PER UNIT SC SCH ×4 (08:43→21:00)
[2018-11-13] MEDS: MOM 30ML SUSPENSION UDC PO SCH ×2 (08:43→21:31)
[2018-11-13] MEDS: SENOKOT S TAB PO SCH ×2 (08:43→21:33)
[2018-11-13] MEDS: **hydrALAZINE HCL** 25 MG TAB PO SCH ×3 (08:44→21:33)
[2018-11-13] MEDS: atenoloL 50 MG TAB PO SCH (08:45)
[2018-11-13] MEDS: PANTOPRAZOLE 40MG TAB (PROTONIX) PO SCH (08:45)
[2018-11-13] MEDS: ATORVASTATIN 20 MG TAB PO SCH (08:45)
[2018-11-13] MEDS: GABAPENTIN 100 MG CAP PO SCH ×3 (08:45→21:33)
[2018-11-13] MEDS: ACETAMINOPHEN 500 MG TAB PO PRN ×2 (08:45→21:32)
[2018-11-13] MEDS: NYSTATIN 100,000 UNITS/GM TOPICAL PWD 15 GM TOP SCH ×2 (08:46→21:34)
--- NOTE | 2018-11-13 09:27 | IPN ---
DATE: 11/11/2018 SUBJECTIVE: The patient was seen and examined at the bedside this morning during hemodialysis procedure. He is tolerating the hemodialysis procedure well. He still reports pain in the back. I got a call from the primary team and a chief medical officer as well. Patient's CRP is still elevated. His white cell count is still high day. They suspect epidural abscess they plan to do an MRI without contrast on the patient. OBJECTIVE: Vital signs: Temperature is 97.9 degrees Fahrenheit, blood pressure 154/53, pulse is 66, respiratory of 60, saturating 93% on 2 liters via nasal cannula. Intake and output: Urine output recorded is 300 mL. Weight in the bed scale is 97.3 kg. PHYSICAL EXAMINATION: GENERAL: The patient is awake, alert, oriented times two laying in bed getting hemodialysis done. HEAD AND NECK EXAM: Extraocular muscles intact. Pupils equally round and reactive to light. Mucous membranes are moist. NECK: Supple. There is no jugular venous distention (JVD). CARDIOVASCULAR: S1, S2 regular rate. Trace edema of the left lower extremity. RESPIRATORY: Chest is clear to auscultation bilaterally. Bilateral equal air entry. No rales or rhonchi. ABDOMEN: Soft, obese, positive bowel sounds. Nontender. MUSCULOSKELETAL: Left transmetatarsal amputation and right above-knee amputation. CENTRAL NERVOUS SYSTEM (FISHING LINE WINDING MACHINE OPERATOR): No focal deficit. Power is 5/5 in bilateral upper extremities. LAB REVIEW: CBC showed WBC of 12.9, hemoglobin 10.3, platelets of 237. ESR is more than 140, INR is 2.2. BMP showed sodium 134, potassium 4.1, chloride 100, bicarb 27, BUN 45, creatinine is 5.1, C-reactive protein is 9.2. CURRENT INPATIENT MEDICATIONS: The patient's medications were all reviewed by me. He continues to be on IV ceftriaxone and IV ampicillin. No other change in the medications today as compared with yesterday. ASSESSMENT/PLAN: 1. End-stage renal disease on hemodialysis: The patient is being dialyzed today according to his Tuesday, , Tuesday schedule. Ultrafiltration goal will be at least 3 liters as tolerated by his blood pressure. 2. Anemia and end-stage renal disease, hemoglobin level is optimal. Continue current dose of Aranesp 200 mcg IV with hemodialysis. 3. Enterococcus bacteremia: The patient is currently on synergistic dose of ampicillin and ceftriaxone. However, ESR and CRP is still high. Primary team wants to do MRI of the spine. Avoid using gadolinium because of risk of nephrogenic systemic fibrosis. Patient can get MRI without contrast or CT scan with IV contrast. 4. Hypertension with end-stage renal disease: Continue current dose of atenolol, amlodipine and hydralazine. Blood pressure levels are optimized.
[2018-11-13] MEDS ORDERED: LIDOCAINE 1% MDV 20ML VIAL As Ordered ONE (10:37)
--- NOTE | 2018-11-13 10:59 | IPNPDOC ---
Text Note Date of Service The patient was seen on 11/13/18. NOTE Subjective: Patient seen and examined at bedside. Patient says his back pain is doing better however, when the nurses move his bed up too quickly he becomes in a lot of pain. Patient is afebrile and white count is been stable. He continues on his antibiotics. Patient says he is otherwise doing well. Review of systems General: Patient denies fevers HEENT: Patient denies headaches Cardiovascular: Patient denies chest pain Respiratory: Patient denies shortness of breath, cough GI: Patient denies abdominal pain, nausea, vomiting, diarrhea : Patient denies pain or difficulty with urination Neurological: Patient denies numbness or tingling in extremities Extremities: Patient denies swelling or pain in extremities Objective: Vitals: (see below) General: No acute distress, laying comfortably in bed. HEENT: Normocephalic, atraumatic, moist mucous membranes. Neck: No JVD or lymphadenopathy Cardiac: RRR, No murmurs Pulm: Clear to auscultation b/l. No wheezing, rhonchi Abd: NT/ND + BS Ext: No edema present there is a right [id number] amputation noted Labs (see below) Images: Patient had an MRI of the lumbar spine performed on 11/11/2018 which demonstrated abnormal marrow signal in the inferior aspect of L3 and superior aspect of L4 with associated disc space narrowing at L3-L4. There is a linear focus of T2 intermediate signal measuring 2.2 x 9 mm projecting over the left paracentral aspect of the spinal canal that is not fully characterize on limited scan. In discussion with radiology today, this appears to be most likely a extension of the disc into the spinal canal. Suggest repeat imaging after antibiotic completion as there was no clinical change in the patient. Assessment/Plan 1. Bacteremia/early discitis L3-L4. Patient had positive blood cultures 2 for Enterococcus faecalis. Possible source was tunneled dialysis catheter. We'll continue with antibiotics as recommended with infectious disease. Patient is to get PICC line placed today. Transesophageal echo was negative for vegetation. After discussion with radiology, there is no drainable abscess and it was recommended by Dr. Moore to repeat imaging studies after completion of antibiotics for resolution of discitis. 2. End-stage renal disease on hemodialysis. Nephrology has been consulted. 3. Diabetes. Patient is on sliding scale and also on gabapentin for neuropathy. 4. COPD. On Breo at home. DuoNeb have been switched from scheduled to when necessary as the patient was requesting less treatment since that he was doing okay. 5. Coronary artery disease. Continue with aspirin statin and atenolol with hold parameters. 6. Hypertension and hypertensive heart disease. Continue with atenolol and amlodipine with holding parameters. Continue with hydralazine. 7. Restless leg syndrome. Continue Requip daily at bedtime. 8. DVT. INR between 2 and 3 and will continue with Coumadin. 9. Homelessness. PFS has been consulted. Because the patient's continued need to be on IV antibiotics for 4-6 weeks, patient will most likely need placement in a retirement for subacute rehabilitation and treatment. 10. Morbid obesity complicating care. 11. Schizoaffective disorder. Psychiatry has been consulted and recommended 25 mg of Seroquel daily at bedtime with Seroquel 25 mg 3 times a day when necessary for increased agitation to be increased over the next few days to 50 then to 100 mg. 12. GERD. Continue Protonix 40 mg daily 13. Anemia of end-stage renal disease. Iron studies have been ordered. 14. Constipation continue with Senokot S milk of magnesia scheduled in [place] when necessary. PT/OT out of bed for meals. DVT prophy: Coumadin Dispo: Pending placement in senior care facility for IV antibiotics and PICC line placement VS,Fishbone, I+O VS, Fishbone, I+O Laboratory Tests 11/13/18 06:24 Red Blood Count 3.37 L, Mean Corpuscular Volume 102.7 H, Mean Corpuscular Hemoglobin 33.2 H, Mean Corpuscular Hemoglobin Concent 32.4, Red Cell Distribution Width 15.0 H, Calcium Level 9.3 Vital Signs Date Time Temp Pulse Resp B/P (MAP) Pulse Ox O2 Delivery O2 Flow Rate FiO2 11/13/18 10:23 18 11/13/18 08:45 64 137/49 11/13/18 06:44 90 11/13/18 06:00 97.6 11/11/18 06:03 2.0 11/10/18 19:27 Nasal Cannula I&O- Last 24 Hours up to 6 AM 11/13/18 06:00 Intake Total 1640 ml Output Total 650 ml Balance 990 ml SOBEIDA THACKER DO Nov 13, 2018 10:59
--- NOTE | 2018-11-13 11:22 | IPN ---
DATE OF SERVICE: 11/12/2018 SUBJECTIVE: Patient was seen and examined at the bedside today morning. He got the MRI done yesterday. The result was not very conclusive because patient was unable to tolerate MRI procedure. He is still complaining of back pain. He was dialyzed yesterday; 3 liters of fluid was removed. There were no issues with dialysis yesterday. OBJECTIVE: Vital signs: Temperature is 98.5 degrees Fahrenheit, blood pressure 141/48, pulse is 78, respiratory of 20, saturating 91% on room air. Intake and output: Urine output recorded is 150 mL. Ultrafiltration with hemodialysis was 3 liters yesterday. Weight in the bed scale is 96.5 kg. PHYSICAL EXAM: General: Patient is awake, alert, oriented times three, laying in bed, mild painful distress. Head and neck exam: Extraocular muscles intact. Pupils equally round and reactive to light. Mucous membranes are moist. Neck is supple. There is no jugular venous distention (JVD). Cardiovascular: S1, S2, regular rate. Trace edema of the lower extremities. Respiratory: Chest is clear to auscultation bilaterally. Bilateral equal air entry. No rales or rhonchi. Abdomen: Soft, obese, positive bowel sounds. Nontender. Musculoskeletal: Decreased range of movement at the spine because of pain. He has a left transmetatarsal amputation and right above-knee amputation. Central nervous system (FLAT LOCK OPERATOR): No focal deficit. Power is 5/5 in bilateral upper extremities. LAB REVIEW: CBC showed WBC 12.3, hemoglobin 10.6, platelets of 159. ESR is 127. BMP showed sodium 135, potassium 4.1, chloride 99, bicarbonate 27, BUN 33, creatinine 4.2, calcium is 8.9, C-reactive protein is 11.3. CURRENT INPATIENT MEDICATIONS: The patient's medications were all reviewed by me. He continues to be on IV ampicillin and ceftriaxone. I see the Coumadin is on hold at this time. ASSESSMENT AND PLAN: 1. End-stage renal disease on hemodialysis. Patient was dialyzed according to Tuesday, , Tuesday schedule. Next hemodialysis will be next week on Tuesday. 2. Anemia in end-stage renal disease. Continue current dose of Aranesp. Hemoglobin level is optimal at 10.6. 3. Enterococcus bacteremia. Patient is on ampicillin and Rocephin as recommended by infectious disease. MRI of the spine was done, which was not conclusive for epidural abscess. C-reactive protein is still high. 4. Hypertension with end-stage renal disease. Continue current dose of hydralazine, atenolol, and amlodipine. Rest of the management is as per primary team.
[2018-11-13 12:49] LABS: INR 2.04; PROTHROMBIN TIME 22.8 SECONDS (11.8-14.0)
[2018-11-13 14:00] VITALS: BP 134/53
[2018-11-13] MEDS: WARFARIN SOD 2 MG TAB PO SCH (15:39)
[2018-11-13] MEDS: SODIUM CHLORIDE 0.9% INJ 10 ML SYR IV SCH (17:45)
[2018-11-13] MEDS ORDERED: QUEtiapine FUMARATE 25 MG TAB PO SCH (21:00)
--- NOTE | 2018-11-13 21:28 | IPN ---
DATE: 11/13/2018 Mr. Cisneros is seen this morning on his bedside. He is lying in the bed and reports back pain particularly when he moves. If he stays still then pain is tolerable. He denies any nausea or vomiting. There is no dyspnea or chest pain. PHYSICAL EXAMINATION: Temperature 97.8 degrees Fahrenheit, heart rate 72 per minute and respiratory rate 16 per minute. Blood pressure 137/49 mmHg and oxygen saturation 95% on room air. Head is atraumatic. Neck is supple and JVD difficult to be assessed. Heart sounds are regular and lungs have good bilateral air entry without any wheezing or rales. Abdomen soft and nontender and bowel sounds are normal. Extremities have no cyanosis or clubbing. He has a right qptlt-hwa-xlpy amputation. He also has left transmetatarsal amputation. Neurologically he is at his baseline mentation. Today's labs show WBC count 14.7, hemoglobin 11.2 and hematocrit 34.6. Platelets 257. Sodium 132, potassium 4.0, CO2 of 27, BUN 47 and creatinine 5.30. C-reactive protein is down to 9.58. MRI of his lumbar spine was done on 11/11/2018 and it did show disc space narrowing at L3 and L4 and there is a linear focus of T2 intermediate signal which measured about 2.42 into 9 mm. PROBLEMS: 1. End-stage renal disease. The patient is regularly dialyzed on Tuesday, and Tuesday schedule. He was last dialyzed on Tuesday and will be scheduled for next dialysis tomorrow. There is no emergent need for dialysis today. 2. Hyponatremia. This is mild and likely to correct with dialysis. No other intervention is indicated. 3. Enterococcus faecalis bacteremia and possible discitis. The patient remains afebrile at present on ampicillin 2 grams every 12 hours and ceftriaxone 2 grams every 12 hours. His Perma-Cath was removed and a new Perma-Cath has been placed. The patient had declined an AV fistula and unfortunately this is the result of his long-term Perma-Cath. I have explained to him and we will see if he will agree for an AV fistula once his condition improves. 4. Anemia. His anemia is stable at present and does not need any urgent intervention. 5. Hypertension. Blood pressure is very well controlled on current medications and no changes are being made today. 6. Back pain. This is related to infective etiology. The patient will continue with antibiotics and pain management. He is not a suitable candidate for NSAIDs.
[2018-11-13] MEDS: DOCUSATE SODIUM 100 MG CAP PO PRN (21:33)
[2018-11-13] MEDS: rOPINIRole 0.25 MG TAB(REQUIP) PO SCH (21:37)
[2018-11-13 22:00] VITALS: BP 143/70
[2018-11-14] MEDS: AMPICILLIN SOD 2 GM in D5W MINI-BAG PLUS 100 ML IV SCH ×2 (05:13→20:04)
[2018-11-14] MEDS: SODIUM CHLORIDE 0.9% INJ 10 ML SYR IV SCH ×2 (05:13→20:03)
[2018-11-14] MEDS: PANTOPRAZOLE 40MG TAB (PROTONIX) PO SCH (05:52)
[2018-11-14] MEDS: MOM 30ML SUSPENSION UDC PO SCH ×2 (05:52→20:59)
[2018-11-14] MEDS: cefTRIAXone SOD 2 GM in D5W MINI-BAG PLUS 50 ML IV SCH ×2 (05:52→20:58)
[2018-11-14] MEDS: ATORVASTATIN 20 MG TAB PO SCH (05:53)
[2018-11-14] MEDS: ASPIRIN 81 MG ENTERIC TAB PO SCH (05:53)
[2018-11-14] MEDS: SENOKOT S TAB PO SCH ×2 (05:53→20:59)
[2018-11-14] MEDS: GABAPENTIN 100 MG CAP PO SCH ×3 (05:53→20:58)
[2018-11-14] MEDS: amLODIPine 10 MG TAB PO SCH (05:54)
[2018-11-14] MEDS: **hydrALAZINE HCL** 25 MG TAB PO SCH ×3 (05:54→20:59)
[2018-11-14] MEDS: atenoloL 50 MG TAB PO SCH (05:55)
[2018-11-14 06:00] VITALS: BP 143/66
[2018-11-14] MEDS ORDERED: LACTULOSE 20 GM/30 ML SYRUP UD PO SCH ×2 (06:00→12:00)
[2018-11-14 06:15] LABS: HEMATOCRIT 31.2 % (42.0-52.0); HEMOGLOBIN 9.9 g/dl (13.5-17.5); MEAN CORPUSCULAR HEMOGLOBIN 32.9 pg (27.0-33.0); MEAN CORPUSCULAR HGB CONC 31.7 g/dl (32.0-36.5); MEAN CORPUSCULAR VOLUME 103.7 fl (80.0-96.0); PLATELET COUNT, AUTOMATED 251 10^3/uL (150-450); RED BLOOD COUNT 3.01 10^6/uL (4.30-6.10); WHITE BLOOD COUNT 12.8 10^3/uL (4.0-10.0)
[2018-11-14 06:26] LABS: INR 1.88; PROTHROMBIN TIME 21.4 SECONDS (11.8-14.0)
[2018-11-14 06:35] LABS: C REACTIVE PROTEIN QUANTITATIV 9.78 MG/DL (0.00-0.30); CALCIUM LEVEL 8.5 MG/DL (8.8-10.2); CREATININE FOR GFR 5.84 MG/DL (0.70-1.30); GLOMERULAR FILTRATION RATE 10.3 (>49); MAGNESIUM LEVEL 3.8 MG/DL (1.8-2.4); POTASSIUM SERUM 4.1 MEQ/L (3.5-5.1)
[2018-11-14 06:53] LABS: ERYTHROCYTE SEDIMENTATION RATE 104 mm/hr (0-20)
[2018-11-14] MEDS ORDERED: BISACODYL 10 MG SUPP PR ONE (08:00)
[2018-11-14] MEDS: HumaLOG INSULIN (NovoLOG) PER UNIT SC SCH ×4 (08:45→21:06)
[2018-11-14] MEDS: NYSTATIN 100,000 UNITS/GM TOPICAL PWD 15 GM TOP SCH ×2 (08:46→20:59)
[2018-11-14] MEDS: SODIUM CHLORIDE NASAL 0.65% SPRAY BTL (OCEAN) PRN (08:54)
--- NOTE | 2018-11-14 11:19 | IPNPDOC ---
Text Note Date of Service The patient was seen on 11/14/18. NOTE Subjective: Patient was seen and examined at his bedside. Patient was complaining that he did not a tray and was refusing to go down to dialysis. Patient had been refusing his breakfast tray earlier in the morning. After talking to the patient patient was going to get his breakfast tray and with the help of Dr. Cm of nephrology we're able to convince the patient to go get dialysis. Patient did not have any acute complaints today. Review of systems General: Patient denies fevers HEENT: Patient denies headaches Cardiovascular: Patient denies chest pain Respiratory: Patient denies shortness of breath, cough GI: Patient denies abdominal pain, nausea, vomiting, diarrhea : Patient denies pain or difficulty with urination Neurological: Patient denies numbness or tingling in extremities Extremities: Patient denies swelling or pain in extremities Objective: Vitals: (see below) General: No acute distress, laying comfortably in bed. HEENT: Normocephalic, atraumatic, moist mucous membranes. Neck: No JVD or lymphadenopathy Cardiac: RRR, No murmurs Pulm: Clear to auscultation b/l. No wheezing, rhonchi Abd: NT/ND + BS Ext: Patient has a right hahjn-ocl-mbfc amputation. Patient also has a left midfoot amputation.. Labs (see below) Images: No new imaging has been performed. Assessment/Plan 1. Bacteremia/early discitis L3-L4. Patient had positive blood cultures 2 for Enterococcus faecalis. Possible source was tunneled dialysis catheter. We will continue with antibiotics as recommended by infectious disease. Patient had PICC line placed yesterday. RICKEY was negative for vegetation. Patient should have repeat MRI at that completion of antibiotics assess for resolution of discitis. 2. End stage renal disease. Nephrology has been consulted and the patient is to receive dialysis today. 3. Diabetes. Patient is on sliding scale for sugar coverage and gabapentin for neuropathy. 4. COPD. Patient is on Breo at home. Patient's nebulizers have been switched to when necessary. 5. Coronary artery disease. Continue with aspirin, statin, and atenolol with hold parameters. 6. Hypertension and hypertensive heart disease. Continue with atenolol and amlodipine with holding parameters. Continue with hydralazine. 7. Restless leg syndrome. Continue Requip daily at bedtime. 8. DVT. INR between 2 and 3 and will continue with Coumadin. 9. Homelessness. Patient is currently being evicted from his apartment. Discharge planners are working with patient rn social work in order to prevent this however, the patient is going to need subacute rehabilitation placement for continuation of his IV antibiotic therapy as the patient will not be able to handle his IV antibiotics himself. It seems we are able to place the patient in [facility] tomorrow. 10. Morbid obesity complicated care. 11. Schizoaffective disorder. Psychiatry consulted and 25 mg a cervical started at that time however, the patient was more somnolent this been decreased to 12.5 mg. 12. GERD. Continue Protonix 40 mg daily. 13. Anemia of end-stage renal disease. 14. Constipation. Patient has been on Senokot S, milk of magnesia, sustained Colace. We have started the patient on lactulose and a suppository as the patient is a had a bowel movement in 10 days. DVT prophy: Coumadin Dispo: [facility]acement in [facility] for [facility]. VS,Fishbone, I+O VS, Fishbone, I+O Laboratory Tests 11/14/18 05:56 Red Blood Count 3.01 L, Mean Corpuscular Volume 103.7 H, Mean Corpuscular Hemoglobin 32.9, Mean Corpuscular Hemoglobin Concent 31.7 L, Red Cell Distribution Width 15.2 H, Calcium Level 8.5 L Vital Signs Date Time Temp Pulse Resp B/P (MAP) Pulse Ox O2 Delivery O2 Flow Rate FiO2 11/14/18 06:00 97.5 64 19 143/66 (91) 92 11/11/18 06:03 2.0 11/10/18 19:27 Nasal Cannula I&O- Last 24 Hours up to 6 AM 11/14/18 06:00 Intake Total 1480 ml Output Total 200 ml Balance 1280 ml GME ATTESTATION GME ATTESTATION My faculty preceptor for this patient encounter was physically present during the encounter and was fully available. All aspects of the patient interview, examination, medical decision making process, and medical care plan development were reviewed and approved by the faculty preceptor. The faculty preceptor is aware and concurs with the plan as stated in the body of this note and will attest to such by his/her cosignature. ATTENDING NOTE I, Yaritza Singh, have independently examined this patient and performed my own physical exam, as well as reviewed the documentation and edited where necessary. I have discussed in detail with the resident / student the findings and plan of treatment as documented by the resident / student and edited their note. I agree with their findings and treatment plan and have edited their documentation. I will continue to follow the patient during this hospital stay. SOBEIDA THACKER DO Nov 14, 2018 11:19 YARITZA SINGH MD Nov 14, 2018 15:23
[2018-11-14] MEDS: CYCLOBENZAPRINE 5MG TABLET PO PRN (13:22)
[2018-11-14] MEDS: NORCO, ANEXSIA 5/325MG TABLET (HYDROcodone/ACETAMINOPHEN) PO PRN ×2 (13:23→20:58)
[2018-11-14 14:00] VITALS: BP 130/45
[2018-11-14] MEDS: WARFARIN SOD 2 MG TAB PO SCH (15:14)
[2018-11-14] MEDS: rOPINIRole 0.25 MG TAB(REQUIP) PO SCH (20:59)
[2018-11-14] MEDS: QUEtiapine FUMARATE 12.5 MG HALF-TAB PO SCH (21:00)
[2018-11-14 22:00] VITALS: BP 160/65
--- NOTE | 2018-11-14 23:34 | REP ---
Procedure: PICC line insertion with Parisa-Tc The procedure was performed under the direct supervision of Dr. Aguilar. The risks and benefits of the procedure were explained to the patient and informed consent was obtained. The right basilic vein was localized using ultrasound guidance. The skin was prepped and draped in a sterile fashion. 1% lidocaine was used as a local anesthetic. Using ultrasound guidance the basilic vein was cannulated and a 0.018 guidewire was inserted and advanced to the SVC using fluoroscopic guidance. The needle was removed and a 4.5 Egyptian dilator and peel-away sheath was inserted over the guide wire. A 4.5 Egyptian single lumen catheter was cut to length of 43 in the cm. The dilator was removed and the catheter was inserted over the guide wire with the tip ending in the SVC. The peel-away sheath was removed and the catheter was flushed with heparinized saline as per Hospital protocol. The catheter was affixed to the skin and a sterile dressing was applied. The patient tolerated the procedure well and there were no immediate complications. 0.2 minutes of fluoro time was utilized for this procedure. Reviewed by HARMEET Alaniz 11/13/2018 04:33 P Electronically Signed by Prabhu Aguilar MD 11/14/2018 11:26 P
--- NOTE | 2018-11-15 00:09 | IPN ---
DATE: 11/14/2018 Mr. Cisneros is seen this morning on his bedside. He is not in good spirits this morning. He has been complaining of not getting good care from nursing staff. I did talk to the charge nurse yesterday. She has in turn also talked to the patient and nursing staff. Apparently the patient refused to go for dialysis this morning. He has been constipated and no bowel movement for the last 8 or 9 days. He denies any fever or chills at present. He did have an Enterococcus bacteremia, and his dialysis catheter was removed last week. Since then, his blood cultures have been negative. PHYSICAL EXAMINATION: Temperature 97.5 degrees Fahrenheit, heart rate 64 per minute and respiratory rate 19 per minute. Blood pressure 143/66 mmHg and oxygen saturation 92% on room air. His head is atraumatic. He is edentulous and without any thrush or ulcers. Neck veins are difficult to be assessed. He has a Perma-Cath in place for dialysis. Heart: Sounds are regular and lungs with diminished breath sounds. Abdomen is obese and nontender. Bowel sounds present. Extremities: Without any cyanosis or clubbing. He has a prior right vbvsv-oun-fsvz amputation and left transmetatarsal amputation. Neurologically, he is awake and at his baseline mentation. Today's labs showed WBC count 12.8, hemoglobin 9.9 and hematocrit 31.2. Sodium 134, potassium 4.1, CO2 of 25, BUN 58, creatinine 5.8, calcium 8.5 and magnesium 3.8. A C-reactive protein is 9.78. PROBLEM #1: End-stage renal disease. The patient has been refusing dialysis this morning. We did come to his room and talk to him. He is now willing to go for dialysis later and wants to have breakfast first. I have advised the nursing staff to feed him breakfast and then send him down to dialysis. PROBLEM #2: Hyponatremia. The patient has mild chronic hyponatremia, which is stable at this level of sodium 132-135 range. No intervention is needed. PROBLEM #3: Enterococcus bacteremia and back pain. He probably has infective discitis due to his Enterococcus bacteremia. He is currently afebrile and remains on antibiotics. The patient is being followed by infectious disease. PROBLEM #4: Anemia. His anemia is stable, and we will continue to monitor. He will receive Aranesp once a week during dialysis. PROBLEM #5: Congestive heart failure. So far his volume status is reasonably well compensated. The patient understands that he needs to follow his fluid restriction of 1500 mL per day. Apparently he gets upset when nursing staff tells him that he needs to follow his fluid restriction. Will try to remove about 3 liters of fluid with dialysis as tolerated. PROBLEM #6: Constipation. The patient has been given Milk of Magnesia, and he is already receiving his bowel care.
[2018-11-15] MEDS: CYCLOBENZAPRINE 5MG TABLET PO PRN ×2 (05:48→18:40)
[2018-11-15] MEDS: AMPICILLIN SOD 2 GM in D5W MINI-BAG PLUS 100 ML IV SCH ×2 (05:49→17:36)
[2018-11-15] MEDS: NORCO, ANEXSIA 5/325MG TABLET (HYDROcodone/ACETAMINOPHEN) PO PRN ×2 (05:49→20:51)
[2018-11-15 06:00] VITALS: BP 160/71
[2018-11-15] MEDS: cefTRIAXone SOD 2 GM in D5W MINI-BAG PLUS 50 ML IV SCH ×2 (06:27→18:40)
[2018-11-15] MEDS: SODIUM CHLORIDE 0.9% INJ 10 ML SYR IV SCH ×2 (06:28→19:41)
[2018-11-15 06:49] LABS: HEMATOCRIT 33.6 % (42.0-52.0); HEMOGLOBIN 10.6 g/dl (13.5-17.5); MEAN CORPUSCULAR HEMOGLOBIN 32.8 pg (27.0-33.0); MEAN CORPUSCULAR HGB CONC 31.5 g/dl (32.0-36.5); PLATELET COUNT, AUTOMATED 249 10^3/uL (150-450); RED BLOOD COUNT 3.23 10^6/uL (4.30-6.10); WHITE BLOOD COUNT 11.6 10^3/uL (4.0-10.0)
[2018-11-15 07:08] LABS: C REACTIVE PROTEIN QUANTITATIV 8.89 MG/DL (0.00-0.30); CALCIUM LEVEL 8.8 MG/DL (8.8-10.2); CREATININE FOR GFR 4.26 MG/DL (0.70-1.30); GLOMERULAR FILTRATION RATE 14.9 (>49); MAGNESIUM LEVEL 3.2 MG/DL (1.8-2.4); POTASSIUM SERUM 4.2 MEQ/L (3.5-5.1)
[2018-11-15 07:37] LABS: ERYTHROCYTE SEDIMENTATION RATE > 140 mm/hr (0-20)
[2018-11-15 07:47] LABS: INR 1.81; PROTHROMBIN TIME 20.7 SECONDS (11.8-14.0)
[2018-11-15] MEDS: NYSTATIN 100,000 UNITS/GM TOPICAL PWD 15 GM TOP SCH ×2 (08:08→20:51)
[2018-11-15] MEDS: PANTOPRAZOLE 40MG TAB (PROTONIX) PO SCH (08:09)
[2018-11-15] MEDS: SENOKOT S TAB PO SCH ×2 (08:09→20:51)
[2018-11-15] MEDS: ASPIRIN 81 MG ENTERIC TAB PO SCH (08:09)
[2018-11-15] MEDS: MOM 30ML SUSPENSION UDC PO SCH ×2 (08:09→20:51)
[2018-11-15] MEDS: HumaLOG INSULIN (NovoLOG) PER UNIT SC SCH ×4 (08:09→21:00)
[2018-11-15] MEDS: ATORVASTATIN 20 MG TAB PO SCH (08:09)
[2018-11-15] MEDS: atenoloL 50 MG TAB PO SCH (08:10)
[2018-11-15] MEDS: GABAPENTIN 100 MG CAP PO SCH ×3 (08:10→20:50)
[2018-11-15] MEDS: **hydrALAZINE HCL** 25 MG TAB PO SCH ×3 (08:10→20:50)
[2018-11-15] MEDS: amLODIPine 10 MG TAB PO SCH (08:10)
--- NOTE | 2018-11-15 11:06 | IPN ---
DATE: 11/14/2018 Mr. Cisneros was seen in dialysis this afternoon. He seems to be doing fairly well. He wants to go home to get some of his belongings, but agrees to be going to a [facility] for continued IV antibiotics. His back pain has improved. He has no nausea, vomiting or diarrhea. No abdominal pain. On physical exam, temperature is 97.3, pulse 65, respirations 20, blood pressure 130/45, O2 sat 93% on room air. Heart: Normal S1 and S2. No murmurs appreciated. Lungs are clear. No wheezes or rhonchi. Abdomen is soft, obese, nontender. No visceromegaly. Extremities: No edema. Right above-knee amputation, left transmetatarsal amputation both healed. Oropharynx dry. Neurologic Exam: At baseline, the patient does know my name and where he is. Laboratories: White count is 12.8, hemoglobin 9.9, hematocrit 31.2, platelets 251. ESR 104 down from over 140. Sodium 134, potassium 4.1, chloride 100, bicarb 25, BUN 58, creatinine 5.84, glucose 166, calcium 8.5, magnesium 3.8, CRP 9.78. MEDICATIONS: - IV ampicillin 2 grams every 12 hours - IV Rocephin 2 grams IV every 12 hours IMPRESSION: 1. Acute diskitis L3-L4 with culture positive for E. Faecalis. The patient had a followup MRI done on 11/11/2018 which was done without contrast due to renal failure, but was a limited exam due to patient discomfort. There was some concern of some linear focus measuring 2.2 x 9 mm in the left paracentral spinal canal. 2. End-stage renal disease on hemodialysis. Catheter has been changed. The patient had refused hemodialysis this morning, but now is undergoing his treatment. PLAN: The patient will need placement to finish IV antibiotics. End of therapy will be 6 weeks from first negative culture which was 11/05/2018. End of therapy would be 12/17/2018.
[2018-11-15 14:00] VITALS: BP 149/69
[2018-11-15] MEDS: WARFARIN SOD 2 MG TAB PO SCH (16:49)
--- NOTE | 2018-11-15 17:43 | IPNPDOC ---
Text Note Date of Service The patient was seen on 11/15/18. NOTE Subjective: Patient was seen and evaluated laying in bed. Patient was asking for a trace as he was hungry. Patient was okay with his possible discharge over to the [facility] today. Patient not complaining of any pain. There were no acute events overnight. Review of systems General: Patient denies fevers HEENT: Patient denies headaches Cardiovascular: Patient denies chest pain Respiratory: Patient denies shortness of breath, cough GI: Patient denies abdominal pain, nausea, vomiting, diarrhea : Patient denies pain or difficulty with urination Neurological: Patient denies numbness or tingling in extremities Extremities: Patient has an nghkp-hmd-gihm amputation on the right side. Objective: Vitals: (see below) General: No acute distress, laying comfortably in bed. HEENT: Normocephalic, atraumatic, moist mucous membranes. Neck: No JVD or lymphadenopathy Cardiac: RRR, No murmurs Pulm: Clear to auscultation b/l. No wheezing, rhonchi Abd: NT/ND + BS Ext: Patient is an rtfdt-fms-wokh amputation on the right side and a midfoot and dictation the left side. Patient also has some skin changes secondary to chronic vascular disease with some healed venous stasis ulcers. Labs (see below) Images: No imaging has been performed. Assessment/Plan 1. Bacteremia/early discitis and L3-L4. Patient has positive blood cultures 2 for Enterococcus faecalis. Possible source was tunneled dialysis catheter. We are continuing on the patient's 2 g of ampicillin and 2 g of ceftriaxone every 12 hours until 12/17/2018. Patient should have a repeat MRI at the end of therapy to reevaluate discitis. We appreciate Dr. Gaona's help in managing the patient. 2. End-stage renal disease. Nephrology has been consulted. The patient received dialysis yesterday and will receive dialysis again tomorrow. We appreciate Dr. Cm's help in managing the patient. 3. Diabetes. Patient is on a sliding scale and gabapentin 4. COPD. Patient is on breo at home and his nebulizer been switched when necessary. 5. Coronary artery disease. Continue with aspirin, statin, and atenolol with hold parameters. 6. Hypertension and hypertensive heart disease. Continue with atenolol and amlodipine with hold parameters. Continue hydralazine. 7. Restless leg syndrome. Continue Requip daily at bedtime. 8. DVT. INR between 2 and 3 and will continue with Coumadin. 9. Homelessness. Patient is currently being evicted from his apartment. Discharge planners are working with patient social sciences lecturer in order to prevent this however, the patient is going to need subacute rehabilitation placement for continuation of his IV antibiotic therapy as the patient will not be able to handle his IV antibiotics himself. It seems we are able to place the patient in [facility] tomorrow. 10. Morbid obesity complicated care. 11. Schizoaffective disorder. Psychiatry consulted and 25 mg a cervical started at that time however, the patient was more somnolent this been decreased to 12.5 mg. 12. GERD. Continue Protonix 40 mg daily. 13. Anemia of end-stage renal disease. 14. Constipation. Patient has been on Senokot S, milk of magnesia, sustained Colace. We have started the patient on lactulose and a suppository as the patient is a had a bowel movement in 10 days. DVT prophy: Warfarin Dispo: Placement in [facility] for continuation of IV antibiotics. VS,Fishbone, I+O VS, Fishbone, I+O Laboratory Tests 11/15/18 06:33 Red Blood Count 3.23 L, Mean Corpuscular Volume 104.0 H, Mean Corpuscular Hemoglobin 32.8, Mean Corpuscular Hemoglobin Concent 31.5 L, Red Cell Distribution Width 15.2 H, Calcium Level 8.8 Vital Signs Date Time Temp Pulse Resp B/P (MAP) Pulse Ox O2 Delivery O2 Flow Rate FiO2 11/15/18 16:49 148/69 11/15/18 14:00 98.0 66 18 95 11/11/18 06:03 2.0 11/10/18 19:27 Nasal Cannula I&O- Last 24 Hours up to 6 AM 11/15/18 06:00 Intake Total 750 ml Output Total 4050 ml Balance -3300 ml GME ATTESTATION GME ATTESTATION My faculty preceptor for this patient encounter was physically present during the encounter and was fully available. All aspects of the patient interview, examination, medical decision making process, and medical care plan development were reviewed and approved by the faculty preceptor. The faculty preceptor is aware and concurs with the plan as stated in the body of this note and will attest to such by his/her cosignature. ATTENDING NOTE I, Yaritza Sharpe, have independently examined this patient and performed my own physical exam, as well as reviewed the documentation and edited where necessary. I have discussed in detail with the resident / student the findings and plan of treatment as documented by the resident / student and edited their note. I agree with their findings and treatment plan and have edited their documentation. I will continue to follow the patient during this hospital stay. SOBEIDA THACKER DO Nov 15, 2018 17:43 YARITZA SHARPE MD Nov 20, 2018 14:52
--- NOTE | 2018-11-15 18:47 | IPN ---
DATE: 11/15/2018 Mr. Cisneros is seen this morning on his bedside. He was dialyzed yesterday after he initially refused. He did have three-hour treatment. The patient has chronic problems with noncompliance and poor cooperation. He has been complaining that nursing staff does not treat him well. He denies any nausea or vomiting. He is very limited in his mobility due to generalized weakness and amputation of his right lower extremity and partial amputation of his left foot. PHYSICAL EXAMINATION: Temperature 97.9 degrees Fahrenheit, heart rate 58 per minute and respiratory rate 16 per minute. Blood pressure 160/70 mmHg and oxygen saturation 95%. Head is atraumatic. Neck is supple and jugular venous distention (JVD) difficult to be assessed. Heart sounds regular. Lungs with diminished breath sounds. Abdomen is obese and nontender. Bowel sounds are normal. Extremities without any cyanosis or clubbing. He has a right ssaps-btp-xopx amputation and left transmetatarsal amputation. LABORATORY DATA: Today's laboratories show WBC count 11.6, hemoglobin 10.6 and hematocrit 33.6. Platelets 249. His ESR is greater than 140. Sodium 135, potassium 4.2, CO2 29, creatinine is 4.26 and C-reactive protein is 8.89. PROBLEMS: 1. End-stage renal disease. The patient was dialyzed yesterday and next dialysis will be scheduled for tomorrow. His volume status is well-compensated and electrolytes are stable. There is no need for emergent dialysis today. 2. Enterococcus bacteremia. The patient had his dialysis catheter removed which was felt to be the source of his infection. He had a new catheter placed last week which is currently being used for dialysis. He remains on ampicillin and ceftriaxone. His sedimentation rate is still quite elevated as is his C-reactive protein (CRP). 3. Anemia. At present, anemia is stable and we will continue to monitor. No urgent intervention is indicated. 4. Generalized weakness and deconditioning. The patient did have generalized weakness even prior to this infection issue. However, now he seems to be even much more debilitated. He will benefit from long-term long-term placement due to his multiple comorbid conditions and no support at home.
[2018-11-15] MEDS: rOPINIRole 0.25 MG TAB(REQUIP) PO SCH (20:50)
[2018-11-15] MEDS: QUEtiapine FUMARATE 12.5 MG HALF-TAB PO SCH (20:50)
[2018-11-15 22:00] VITALS: BP 145/68
[2018-11-16] MEDS: NORCO, ANEXSIA 5/325MG TABLET (HYDROcodone/ACETAMINOPHEN) PO PRN ×2 (04:19→21:25)
[2018-11-16] MEDS: AMPICILLIN SOD 2 GM in D5W MINI-BAG PLUS 100 ML IV SCH ×2 (05:43→17:10)
[2018-11-16 06:00] VITALS: BP 143/67
[2018-11-16 06:07] LABS: HEMATOCRIT 32.1 % (42.0-52.0); HEMOGLOBIN 10.3 g/dl (13.5-17.5); MEAN CORPUSCULAR HGB CONC 32.1 g/dl (32.0-36.5); MEAN CORPUSCULAR VOLUME 99.7 fl (80.0-96.0); PLATELET COUNT, AUTOMATED 258 10^3/uL (150-450); RED BLOOD COUNT 3.22 10^6/uL (4.30-6.10); WHITE BLOOD COUNT 14.5 10^3/uL (4.0-10.0)
[2018-11-16 06:18] LABS: INR 1.64; PROTHROMBIN TIME 19.2 SECONDS (11.8-14.0)
[2018-11-16 06:28] LABS: ERYTHROCYTE SEDIMENTATION RATE 98 mm/hr (0-20)
[2018-11-16] MEDS: cefTRIAXone SOD 2 GM in D5W MINI-BAG PLUS 50 ML IV SCH ×2 (06:33→18:36)
[2018-11-16] MEDS: GABAPENTIN 100 MG CAP PO SCH ×3 (06:34→21:25)
[2018-11-16] MEDS: ASPIRIN 81 MG ENTERIC TAB PO SCH (06:34)
[2018-11-16] MEDS: PANTOPRAZOLE 40MG TAB (PROTONIX) PO SCH (06:34)
[2018-11-16] MEDS: **hydrALAZINE HCL** 25 MG TAB PO SCH ×3 (06:34→21:26)
[2018-11-16] MEDS: atenoloL 50 MG TAB PO SCH (06:34)
[2018-11-16] MEDS: MOM 30ML SUSPENSION UDC PO SCH ×2 (06:35→21:00)
[2018-11-16] MEDS: amLODIPine 10 MG TAB PO SCH (06:35)
[2018-11-16] MEDS: NYSTATIN 100,000 UNITS/GM TOPICAL PWD 15 GM TOP SCH ×2 (06:35→21:26)
[2018-11-16] MEDS: SENOKOT S TAB PO SCH ×2 (06:35→21:00)
[2018-11-16] MEDS: ATORVASTATIN 20 MG TAB PO SCH (06:35)
[2018-11-16] MEDS: SODIUM CHLORIDE 0.9% INJ 10 ML SYR IV SCH ×2 (06:36→17:11)
[2018-11-16 06:40] LABS: C REACTIVE PROTEIN QUANTITATIV 7.96 MG/DL (0.00-0.30); CALCIUM LEVEL 8.3 MG/DL (8.8-10.2); CREATININE FOR GFR 5.15 MG/DL (0.70-1.30); GLOMERULAR FILTRATION RATE 11.9 (>49); MAGNESIUM LEVEL 3.4 MG/DL (1.8-2.4); POTASSIUM SERUM 4.2 MEQ/L (3.5-5.1)
[2018-11-16] MEDS: HumaLOG INSULIN (NovoLOG) PER UNIT SC SCH ×4 (08:10→21:00)
--- NOTE | 2018-11-16 10:32 | IPNPDOC ---
Text Note Date of Service The patient was seen on 11/16/18. NOTE Subjective: Patient was seen and examined while lying in bed. Patient was in good spirits. Patient said he was having trouble waking up. Patient says he slept through the night. There is no acute events overnight. Patient was going to dialysis today. Review of systems General: Patient denies fevers HEENT: Patient denies headaches Cardiovascular: Patient denies chest pain Respiratory: Patient denies shortness of breath, cough GI: Patient denies abdominal pain, nausea, vomiting, diarrhea : Patient denies pain or difficulty with urination Neurological: Patient denies numbness or tingling in extremities Extremities: Patient denies swelling or pain in his left lower extremity. Objective: Vitals: (see below) General: No acute distress, laying comfortably in bed. HEENT: Normocephalic, atraumatic, moist mucous membranes. Neck: No JVD or lymphadenopathy Cardiac: RRR, No murmurs Pulm: Clear to auscultation b/l. No wheezing, rhonchi Abd: NT/ND + BS Ext: Patient has a right zecfl-abj-veqq amputation. 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 There is some old healed venous stasis ulcers on the left briggs. Labs (see below) Images: No new imaging has been performed. Assessment/Plan 1. Bacteremia/early discitis and L3-L4. Patient has positive blood cultures 2 f or Enterococcus faecalis. Possible source was tunneled dialysis catheter. We are continuing on the patient's 2 g of ampicillin and 2 g of ceftriaxone every 12 hours until 12/17/2018. Patient should have a repeat MRI at the end of therapy to reevaluate discitis. We appreciate Dr. Gaona's help in managing the patient. 2. End-stage renal disease. Nephrology has been consulted. The patient received dialysis yesterday and will receive dialysis again tomorrow. We appreciate Dr. Cm's help in managing the patient. 3. Diabetes. Patient is on a sliding scale and gabapentin 4. COPD. Patient is on breo at home and his nebulizer been switched when necessary. 5. Coronary artery disease. Continue with aspirin, statin, and atenolol with hold parameters. 6. Hypertension and hypertensive heart disease. Continue with atenolol and amlodipine with hold parameters. Continue hydralazine. 7. Restless leg syndrome. Continue Requip daily at bedtime. 8. DVT. INR between 2 and 3 and will continue with Coumadin. 9. Homelessness. Patient is currently being evicted from his apartment. Discharge planners are working with patient psych social worker in order to prevent this however, the patient is going to need subacute rehabilitation placement for continuation of his IV antibiotic therapy as the patient will not be able to handle his IV antibiotics himself. It seems we are able to place the patient in [facility] tomorrow. 10. Morbid obesity complicated care. 11. Schizoaffective disorder. Psychiatry consulted and 25 mg a cervical started at that time however, the patient was more somnolent this been decreased to 12.5 mg. 12. GERD. Continue Protonix 40 mg daily. 13. Anemia of end-stage renal disease. 14. Constipation. Patient has been on Senokot S, milk of magnesia, sustained Colace. We have started patient on lactulose and the patient began having bowel movements. 15 seborrheic dermatitis. I started the patient on ketoconazole 2% cream to be applied to his face twice a day. DVT prophy: Warfarin Dispo: Pending placement in half-way facility for continuation of IV antibiotics. Patient will need ALC status today. VS,Fishbone, I+O VS, Fishbone, I+O Laboratory Tests 11/16/18 05:52 Red Blood Count 3.22 L, Mean Corpuscular Volume 99.7 H, Mean Corpuscular Hemoglobin 32.0, Mean Corpuscular Hemoglobin Concent 32.1, Red Cell Distribution Width 15.0 H, Calcium Level 8.3 L Vital Signs Date Time Temp Pulse Resp B/P (MAP) Pulse Ox O2 Delivery O2 Flow Rate FiO2 11/16/18 06:34 148/69 11/16/18 06:34 71 11/16/18 06:00 98.2 20 92 11/11/18 06:03 2.0 11/10/18 19:27 Nasal Cannula I&O- Last 24 Hours up to 6 AM 11/16/18 06:00 Intake Total 3140 ml Output Total 765 ml Balance 2375 ml GME ATTESTATION GME ATTESTATION My faculty preceptor for this patient encounter was physically present during the encounter and was fully available. All aspects of the patient interview, examination, medical decision making process, and medical care plan development were reviewed and approved by the faculty preceptor. The faculty preceptor is aware and concurs with the plan as stated in the body of this note and will a ttest to such by his/her cosignature. ATTENDING NOTE I, Yaritza Sharpe, have independently examined this patient and performed my own physical exam, as well as reviewed the documentation and edited where necessary. I have discussed in detail with the resident / student the findings and plan of treatment as documented by the resident / student and edited their note. I agree with their findings and treatment plan and have edited their documentation. I will continue to follow the patient during this hospital stay. SOBEIDA THACKER DO Nov 16, 2018 10:32 YARITZA SHARPE MD Nov 16, 2018 13:22
[2018-11-16] MEDS ORDERED: HEPARIN 1,000 UNITS/ML 10ML VIAL (FOR RADIOLOGY& DIALYSIS ONLY) XX ONE (10:45)
[2018-11-16] MEDS ORDERED: HEPARIN 1,000 UNITS/ML 10ML VIAL (FOR RADIOLOGY& DIALYSIS ONLY) IV ONE (11:00)
[2018-11-16] MEDS: KETOCONAZOLE 2% CREAM TOP SCH ×2 (11:57→21:26)
[2018-11-16] MEDS: WARFARIN SOD 2 MG TAB PO SCH (17:09)
--- NOTE | 2018-11-16 19:52 | IPN ---
DATE: 11/16/2018 Mr. Cisneros is seen this morning on his bedside. He is feeling well and denies any new problems. His back pain has improved now. He denies any nausea, vomiting, dyspnea, or chest pain. PHYSICAL EXAMINATION: Temperature 98.2 degrees Fahrenheit, heart rate 70 per minute, respiratory rate 20 per minute, blood pressure 148/69 mm of mercury, and oxygen saturation 92% on room air. His head is atraumatic. Neck is supple and jugular venous distention (JVD) difficult to be assessed. Heart sounds are regular and lungs clear to auscultation. Abdomen: Obese, soft, and nontender, and bowel sounds are normal. Extremities have no cyanosis or clubbing. He has remote right lcbsh-okc-udfe amputation and left transmetatarsal amputation of his foot. Neurologically, he is at his baseline mentation. Today's labs show WBC count 14.5, hemoglobin 10.3, hematocrit 32. Platelets 258. Sodium 133, potassium 4.2, CO2 of 25, BUN 40, and creatinine 5.15. C-reactive protein is gradually improving and today is 7.96. PROBLEMS: 1. End-stage renal disease. The patient is due for dialysis today and will be dialyzed this afternoon. His volume status is reasonably well compensated. 2. Hyponatremia. Mild and stable. No urgent intervention is needed. This will be corrected with dialysis. The patient should continue with fluid restriction of 1500 per day. 3. Anemia. His anemia is stable, and we will continue with weekly dose of Aranesp. 4. Leukocytosis and enterococcus bacteremia. The patient remains on antibiotics. I am concerned about worsening leukocytosis and only slow improvement in his C-reactive protein. He probably still has some remnants of his bacteremia.
[2018-11-16] MEDS: QUEtiapine FUMARATE 12.5 MG HALF-TAB PO SCH (21:00)
[2018-11-16] MEDS: rOPINIRole 0.25 MG TAB(REQUIP) PO SCH (21:25)
[2018-11-16] MEDS: QUEtiapine FUMARATE 25 MG TAB PO PRN (21:25)
[2018-11-17] MEDS: AMPICILLIN SOD 2 GM in D5W MINI-BAG PLUS 100 ML IV SCH ×2 (05:28→18:59)
[2018-11-17 06:00] VITALS: BP 152/75
[2018-11-17 06:03] LABS: HEMATOCRIT 33.3 % (42.0-52.0); HEMOGLOBIN 10.5 g/dl (13.5-17.5); MEAN CORPUSCULAR HEMOGLOBIN 32.5 pg (27.0-33.0); MEAN CORPUSCULAR HGB CONC 31.5 g/dl (32.0-36.5); MEAN CORPUSCULAR VOLUME 103.1 fl (80.0-96.0); PLATELET COUNT, AUTOMATED 244 10^3/uL (150-450); RED BLOOD COUNT 3.23 10^6/uL (4.30-6.10); WHITE BLOOD COUNT 12.8 10^3/uL (4.0-10.0)
[2018-11-17] MEDS: SODIUM CHLORIDE 0.9% INJ 10 ML SYR IV SCH ×2 (06:11→18:00)
[2018-11-17] MEDS: cefTRIAXone SOD 2 GM in D5W MINI-BAG PLUS 50 ML IV SCH ×2 (06:11→16:57)
[2018-11-17 06:15] LABS: INR 1.57; PROTHROMBIN TIME 18.5 SECONDS (11.8-14.0)
[2018-11-17 06:30] LABS: C REACTIVE PROTEIN QUANTITATIV 8.93 MG/DL (0.00-0.30); CALCIUM LEVEL 8.9 MG/DL (8.8-10.2); CREATININE FOR GFR 3.78 MG/DL (0.70-1.30); GLOMERULAR FILTRATION RATE 17.1 (>49); MAGNESIUM LEVEL 2.7 MG/DL (1.8-2.4); POTASSIUM SERUM 4.4 MEQ/L (3.5-5.1)
[2018-11-17 06:37] LABS: ERYTHROCYTE SEDIMENTATION RATE 99 mm/hr (0-20)
[2018-11-17] MEDS: SENOKOT S TAB PO SCH ×2 (07:38→21:24)
[2018-11-17] MEDS: ASPIRIN 81 MG ENTERIC TAB PO SCH (07:39)
[2018-11-17] MEDS: ATORVASTATIN 20 MG TAB PO SCH (07:39)
[2018-11-17] MEDS: NORCO, ANEXSIA 5/325MG TABLET (HYDROcodone/ACETAMINOPHEN) PO PRN ×3 (07:40→15:46)
[2018-11-17] MEDS: **hydrALAZINE HCL** 25 MG TAB PO SCH ×3 (07:41→21:24)
[2018-11-17] MEDS: GABAPENTIN 100 MG CAP PO SCH ×3 (07:42→21:24)
[2018-11-17] MEDS: amLODIPine 10 MG TAB PO SCH (07:42)
[2018-11-17] MEDS: PANTOPRAZOLE 40MG TAB (PROTONIX) PO SCH (07:42)
[2018-11-17] MEDS: atenoloL 50 MG TAB PO SCH (07:42)
[2018-11-17] MEDS: MOM 30ML SUSPENSION UDC PO SCH ×2 (07:42→21:24)
[2018-11-17] MEDS: NYSTATIN 100,000 UNITS/GM TOPICAL PWD 15 GM TOP SCH ×2 (07:43→21:26)
[2018-11-17] MEDS: KETOCONAZOLE 2% CREAM TOP SCH ×2 (07:44→21:26)
[2018-11-17] MEDS: HumaLOG INSULIN (NovoLOG) PER UNIT SC SCH ×4 (07:45→21:00)
[2018-11-17] MEDS: CYCLOBENZAPRINE 5MG TABLET PO PRN (11:41)
[2018-11-17 14:00] VITALS: BP 147/70
[2018-11-17] MEDS: WARFARIN SOD 2 MG TAB PO SCH (16:57)
--- NOTE | 2018-11-17 20:23 | IPN ---
DATE: 11/17/2018 Mr. Cisneros is seen this morning on his bedside. He called 9-1-1 this morning, and psychiatric social worker supervisor, hospitalist, and nursing staff were in his room just prior to my arrival. The patient reports that he does get delirium, and at times he gets confused. He is feeling well now. He denies any nausea or vomiting. PHYSICAL EXAMINATION: Temperature 98 degrees Fahrenheit, heart rate 68 per minute, respiratory rate 18 per minute, blood pressure is 147/70 mm of mercury, and oxygen saturation 93% on room air. His head is atraumatic. Neck is supple and jugular venous distention (JVD) difficult to be assessed. Heart sounds are regular and lungs clear to auscultation. Abdomen soft, and bowel sounds are present. Extremities without any cyanosis or clubbing. He has a right zbwxn-ipx-nfos amputation and left transmetatarsal amputation. Neurologically, he seems at his baseline mentation. Today's labs show WBC count 12.8, hemoglobin 10.5, and hematocrit 33.3. Sodium 137, potassium 4.4, BUN 24, and creatinine 3.78. PROBLEMS: 1. End-stage renal disease. The patient was dialyzed yesterday, and next dialysis will be scheduled for tomorrow. His volume status is well compensated. 2. Hyponatremia. Sodium level has corrected and does not need any intervention. 3. Anemia. Anemia has also been well controlled, and no intervention is indicated. 4. Enterococcus bacteremia and back pain. The patient did have bacteremia with possible discitis. He is currently afebrile, and most recent blood cultures have been negative so far. His last positive blood culture was from November 04. The patient needs to stay on intravenous antibiotics until end of November, and he is likely to stay here in the hospital, as [facility] has declined him.
[2018-11-17] MEDS: QUEtiapine FUMARATE 12.5 MG HALF-TAB PO SCH (21:24)
[2018-11-17] MEDS: rOPINIRole 0.25 MG TAB(REQUIP) PO SCH (21:24)
[2018-11-18] MEDS: NORCO, ANEXSIA 5/325MG TABLET (HYDROcodone/ACETAMINOPHEN) PO PRN ×2 (04:28→22:15)
[2018-11-18] MEDS: CYCLOBENZAPRINE 5MG TABLET PO PRN (04:32)
[2018-11-18] MEDS: AMPICILLIN SOD 2 GM in D5W MINI-BAG PLUS 100 ML IV SCH ×2 (05:45→17:25)
[2018-11-18 05:52] LABS: HEMATOCRIT 30.3 % (42.0-52.0); HEMOGLOBIN 9.6 g/dl (13.5-17.5); MEAN CORPUSCULAR HEMOGLOBIN 31.6 pg (27.0-33.0); MEAN CORPUSCULAR HGB CONC 31.7 g/dl (32.0-36.5); MEAN CORPUSCULAR VOLUME 99.7 fl (80.0-96.0); PLATELET COUNT, AUTOMATED 246 10^3/uL (150-450); RED BLOOD COUNT 3.04 10^6/uL (4.30-6.10); WHITE BLOOD COUNT 13.8 10^3/uL (4.0-10.0)
[2018-11-18 06:00] VITALS: BP 142/61
[2018-11-18 06:01] LABS: INR 1.3; PROTHROMBIN TIME 15.9 SECONDS (11.8-14.0)
[2018-11-18 06:14] LABS: CALCIUM LEVEL 8.5 MG/DL (8.8-10.2); CREATININE FOR GFR 4.85 MG/DL (0.70-1.30); GLOMERULAR FILTRATION RATE 12.8 (>49); MAGNESIUM LEVEL 2.8 MG/DL (1.8-2.4); POTASSIUM SERUM 4.3 MEQ/L (3.5-5.1)
[2018-11-18] MEDS: ASPIRIN 81 MG ENTERIC TAB PO SCH (06:23)
[2018-11-18] MEDS: PANTOPRAZOLE 40MG TAB (PROTONIX) PO SCH (06:23)
[2018-11-18] MEDS: MOM 30ML SUSPENSION UDC PO SCH ×2 (06:23→22:14)
[2018-11-18] MEDS: GABAPENTIN 100 MG CAP PO SCH ×3 (06:24→22:15)
[2018-11-18] MEDS: **hydrALAZINE HCL** 25 MG TAB PO SCH ×3 (06:25→22:15)
[2018-11-18] MEDS: SENOKOT S TAB PO SCH ×2 (06:25→22:15)
[2018-11-18] MEDS: amLODIPine 10 MG TAB PO SCH (06:25)
[2018-11-18] MEDS: atenoloL 50 MG TAB PO SCH (06:26)
[2018-11-18] MEDS: ATORVASTATIN 20 MG TAB PO SCH (06:26)
[2018-11-18] MEDS: cefTRIAXone SOD 2 GM in D5W MINI-BAG PLUS 50 ML IV SCH ×2 (06:26→17:26)
[2018-11-18] MEDS: HumaLOG INSULIN (NovoLOG) PER UNIT SC SCH ×4 (07:51→22:16)
[2018-11-18] MEDS: SODIUM CHLORIDE 0.9% INJ 10 ML SYR IV SCH ×2 (07:52→17:26)
[2018-11-18] MEDS: KETOCONAZOLE 2% CREAM TOP SCH ×2 (07:56→22:17)
[2018-11-18] MEDS: NYSTATIN 100,000 UNITS/GM TOPICAL PWD 15 GM TOP SCH ×2 (07:56→22:16)
[2018-11-18] MEDS ORDERED: HEPARIN 1,000 UNITS/ML 10ML VIAL (FOR RADIOLOGY& DIALYSIS ONLY) IV ONE (10:15)
[2018-11-18] MEDS ORDERED: HEPARIN 1,000 UNITS/ML 10ML VIAL (FOR RADIOLOGY& DIALYSIS ONLY) XX ONE (10:15)
[2018-11-18 14:20] VITALS: BP 158/75
--- NOTE | 2018-11-18 14:49 | IPN ---
DATE: 11/18/2018 SUBJECTIVE The patient was seen and examined at the bedside today morning. He was laying in the bed. Complains of mild pain in the back, otherwise afebrile, hemodynamically stable. Today is his regular day of dialysis. He is going to get dialysis in the afternoon. OBJECTIVE Vital signs: Temperature is 98.4 degrees Fahrenheit, blood pressure 141/62, pulse is 64, respiratory rate of 18, saturating 92% on room air. Intake and output: Urine output recorded as 150 mL. Weight in the bed scale is 91 kg. PHYSICAL EXAMINATION General: The patient is awake, alert, oriented times two; laying in bed, in no apparent distress. Head and neck examination: Extraocular muscles intact. Pupils equally round and reactive to light. Mucous membranes are moist. Neck is supple. There is no JVD. He has a left IJ tunneled hemodialysis catheter. Cardiovascular: S1, S2, regular rate. Trace edema of the left lower extremity. Respiratory: Chest is clear to auscultation bilaterally. Bilateral equal air entry. No rales or rhonchi. Abdomen: Soft, obese, positive bowel sounds. Nontender. Musculoskeletal: He has a left transmetatarsal amputation, right above-knee amputation, right arm has a PICC line. RECREATIONAL DIRECTOR: He is oriented times two. He follows commands. Moves extremities. Pain in the back. It decreases the mobility of the back. LAB REVIEW: CBC showed WBC of 13.8, hemoglobin 9.6, platelets of 246. BMP showed sodium 137, potassium 4.3, chloride 104, bicarb 26, BUN 41, creatinine is 4.8. CURRENT INPATIENT MEDICATIONS The patient's medications were all reviewed by me. He continues to be on IV antibiotics, ampicillin and ceftriaxone. No other change in the medications today as compared with yesterday. ASSESSMENT/PLAN 1. End-stage renal disease. Today is patient's day of dialysis. He will be dialyzed today in the afternoon. Ultrafiltration goal will be at least 3 liters as tolerated by his blood pressure. 2. Anemia and end-stage renal disease. The patient continues to be on Aranesp. Hemoglobin is slightly suboptimal. Continue current dose for now. 3. Enterococcus bacteremia and back pain. The patient is currently getting IV antibiotics for positive diskitis. He would need to finish the antibiotic until the end of November.
[2018-11-18] MEDS ORDERED: BISACODYL 10 MG SUPP PR PRN (16:30)
[2018-11-18] MEDS: WARFARIN SOD 2 MG TAB PO SCH (17:25)
[2018-11-18] MEDS: rOPINIRole 0.25 MG TAB(REQUIP) PO SCH (22:14)
[2018-11-18] MEDS: QUEtiapine FUMARATE 12.5 MG HALF-TAB PO SCH (22:15)
[2018-11-19 06:00] VITALS: BP 110/38
[2018-11-19] MEDS: cefTRIAXone SOD 2 GM in D5W MINI-BAG PLUS 50 ML IV SCH ×2 (06:36→18:06)
[2018-11-19] MEDS: SODIUM CHLORIDE 0.9% INJ 10 ML SYR IV SCH ×2 (06:36→18:07)
[2018-11-19] MEDS: AMPICILLIN SOD 2 GM in D5W MINI-BAG PLUS 100 ML IV SCH ×2 (06:37→18:07)
[2018-11-19] MEDS: NORCO, ANEXSIA 5/325MG TABLET (HYDROcodone/ACETAMINOPHEN) PO PRN ×3 (06:47→22:42)
[2018-11-19] MEDS: amLODIPine 10 MG TAB PO SCH (07:30)
[2018-11-19] MEDS: ATORVASTATIN 20 MG TAB PO SCH (08:14)
[2018-11-19] MEDS: GABAPENTIN 100 MG CAP PO SCH ×3 (08:18→22:41)
[2018-11-19] MEDS: ASPIRIN 81 MG ENTERIC TAB PO SCH (08:18)
[2018-11-19] MEDS: MOM 30ML SUSPENSION UDC PO SCH ×2 (08:18→22:40)
[2018-11-19] MEDS: atenoloL 50 MG TAB PO SCH (08:18)
[2018-11-19] MEDS: PANTOPRAZOLE 40MG TAB (PROTONIX) PO SCH (08:18)
[2018-11-19] MEDS: **hydrALAZINE HCL** 25 MG TAB PO SCH ×3 (08:18→22:45)
[2018-11-19] MEDS: SENOKOT S TAB PO SCH ×2 (08:18→22:41)
[2018-11-19] MEDS: NYSTATIN 100,000 UNITS/GM TOPICAL PWD 15 GM TOP SCH ×2 (08:19→22:42)
[2018-11-19] MEDS: KETOCONAZOLE 2% CREAM TOP SCH ×2 (08:19→22:43)
[2018-11-19 09:37] LABS: HEMATOCRIT 34.2 % (42.0-52.0); MEAN CORPUSCULAR HGB CONC 32.2 g/dl (32.0-36.5); MEAN CORPUSCULAR VOLUME 102.7 fl (80.0-96.0); PLATELET COUNT, AUTOMATED 262 10^3/uL (150-450); RED BLOOD COUNT 3.33 10^6/uL (4.30-6.10); WHITE BLOOD COUNT 14.9 10^3/uL (4.0-10.0)
[2018-11-19 09:51] LABS: INR 1.2; PROTHROMBIN TIME 14.9 SECONDS (11.8-14.0)
[2018-11-19 09:58] LABS: CALCIUM LEVEL 8.6 MG/DL (8.8-10.2); CREATININE FOR GFR 4.03 MG/DL (0.70-1.30); GLOMERULAR FILTRATION RATE 15.8 (>49); MAGNESIUM LEVEL 2.8 MG/DL (1.8-2.4); POTASSIUM SERUM 4.4 MEQ/L (3.5-5.1)
[2018-11-19] MEDS: HumaLOG INSULIN (NovoLOG) PER UNIT SC SCH ×4 (10:07→22:40)
[2018-11-19 14:00] VITALS: BP 118/92
[2018-11-19] MEDS: WARFARIN SOD 2 MG TAB PO SCH (17:00)
[2018-11-19 22:00] VITALS: BP 120/70
[2018-11-19] MEDS: rOPINIRole 0.25 MG TAB(REQUIP) PO SCH (22:42)
[2018-11-19] MEDS: QUEtiapine FUMARATE 12.5 MG HALF-TAB PO SCH (22:42)
[2018-11-20] MEDS: AMPICILLIN SOD 2 GM in D5W MINI-BAG PLUS 100 ML IV SCH ×2 (05:38→17:15)
[2018-11-20] MEDS: cefTRIAXone SOD 2 GM in D5W MINI-BAG PLUS 50 ML IV SCH ×2 (05:38→18:10)
[2018-11-20] MEDS: SODIUM CHLORIDE 0.9% INJ 10 ML SYR IV SCH ×2 (05:39→17:15)
[2018-11-20] MEDS: NORCO, ANEXSIA 5/325MG TABLET (HYDROcodone/ACETAMINOPHEN) PO PRN ×2 (05:42→18:30)
[2018-11-20 06:00] VITALS: BP 115/63
[2018-11-20] MEDS: NYSTATIN 100,000 UNITS/GM TOPICAL PWD 15 GM TOP SCH ×2 (08:57→20:43)
[2018-11-20] MEDS: GABAPENTIN 100 MG CAP PO SCH ×3 (08:57→20:42)
[2018-11-20] MEDS: **hydrALAZINE HCL** 25 MG TAB PO SCH ×3 (08:57→20:41)
[2018-11-20] MEDS: SENOKOT S TAB PO SCH ×2 (08:57→20:43)
[2018-11-20] MEDS: ASPIRIN 81 MG ENTERIC TAB PO SCH (08:57)
[2018-11-20] MEDS: atenoloL 50 MG TAB PO SCH (08:58)
[2018-11-20] MEDS: PANTOPRAZOLE 40MG TAB (PROTONIX) PO SCH (08:58)
[2018-11-20] MEDS: ATORVASTATIN 20 MG TAB PO SCH (08:58)
[2018-11-20] MEDS: HumaLOG INSULIN (NovoLOG) PER UNIT SC SCH ×4 (08:59→20:43)
[2018-11-20] MEDS: KETOCONAZOLE 2% CREAM TOP SCH ×2 (08:59→20:43)
[2018-11-20] MEDS: MOM 30ML SUSPENSION UDC PO SCH ×2 (08:59→20:40)
[2018-11-20] MEDS: amLODIPine 10 MG TAB PO SCH (08:59)
[2018-11-20 09:49] LABS: INR 1.22; PROTHROMBIN TIME 15.1 SECONDS (11.8-14.0)
[2018-11-20 14:00] VITALS: BP 113/63
[2018-11-20] MEDS: WARFARIN SOD 2 MG TAB PO SCH (17:14)
[2018-11-20] MEDS: MAALOX 30 ML SUSP *UDC PO PRN (17:14)
[2018-11-20 20:16] VITALS: BP 111/62
[2018-11-20] MEDS: rOPINIRole 0.25 MG TAB(REQUIP) PO SCH (20:42)
[2018-11-20] MEDS: CYCLOBENZAPRINE 5MG TABLET PO PRN (20:42)
[2018-11-20] MEDS: QUEtiapine FUMARATE 12.5 MG HALF-TAB PO SCH (20:42)
[2018-11-21] MEDS: NORCO, ANEXSIA 5/325MG TABLET (HYDROcodone/ACETAMINOPHEN) PO PRN ×4 (00:33→21:17)
[2018-11-21] MEDS: SODIUM CHLORIDE 0.9% INJ 10 ML SYR IV SCH ×2 (05:46→18:26)
[2018-11-21] MEDS: AMPICILLIN SOD 2 GM in D5W MINI-BAG PLUS 100 ML IV SCH ×2 (05:46→18:26)
[2018-11-21] MEDS: cefTRIAXone SOD 2 GM in D5W MINI-BAG PLUS 50 ML IV SCH ×2 (05:46→18:26)
[2018-11-21] MEDS: NYSTATIN 100,000 UNITS/GM TOPICAL PWD 15 GM TOP SCH ×2 (05:47→21:18)
[2018-11-21] MEDS: MOM 30ML SUSPENSION UDC PO SCH ×2 (05:47→21:16)
[2018-11-21] MEDS: amLODIPine 10 MG TAB PO SCH (05:50)
[2018-11-21 05:51] VITALS: BP 148/72
[2018-11-21] MEDS: SENOKOT S TAB PO SCH ×2 (05:51→21:17)
[2018-11-21] MEDS: QUEtiapine FUMARATE 25 MG TAB PO PRN (05:51)
[2018-11-21] MEDS: **hydrALAZINE HCL** 25 MG TAB PO SCH ×3 (05:51→21:17)
[2018-11-21] MEDS: GABAPENTIN 100 MG CAP PO SCH ×3 (05:51→21:17)
[2018-11-21] MEDS: ATORVASTATIN 20 MG TAB PO SCH (05:51)
[2018-11-21] MEDS: ASPIRIN 81 MG ENTERIC TAB PO SCH (05:51)
[2018-11-21] MEDS: atenoloL 50 MG TAB PO SCH (05:52)
[2018-11-21] MEDS: KETOCONAZOLE 2% CREAM TOP SCH ×2 (05:52→21:18)
[2018-11-21] MEDS: PANTOPRAZOLE 40MG TAB (PROTONIX) PO SCH (05:52)
[2018-11-21] MEDS: SODIUM CHLORIDE 0.9% INJ 10 ML SYR IV PRN (07:17)
[2018-11-21] MEDS: HumaLOG INSULIN (NovoLOG) PER UNIT SC SCH ×4 (08:02→21:00)
[2018-11-21 10:08] LABS: BASO # 0.1 10^3/uL (0.0-0.2); BASO % 0.4 % (0.0-1.0); EOS # 0.3 10^3/uL (0.0-0.5); EOS % 2.4 % (0.0-3.0); HEMOGLOBIN 9.4 g/dl (13.5-17.5); LYMPH # 1.4 10^3/uL (1.5-5.0); LYMPH % 10.2 % (24.0-44.0); MEAN CORPUSCULAR HGB CONC 31.3 g/dl (32.0-36.5); MONO # 1.1 10^3/uL (0.0-0.8); NEUTROPHILS # 10.7 10^3/uL (1.5-8.5); NEUTROPHILS % 78.3 % (36.0-66.0); PLATELET COUNT, AUTOMATED 258 10^3/uL (150-450); RED BLOOD COUNT 2.94 10^6/uL (4.30-6.10); WHITE BLOOD COUNT 13.7 10^3/uL (4.0-10.0)
[2018-11-21 10:25] LABS: ALBUMIN 2.1 GM/DL (3.2-5.2); CALCIUM LEVEL 8.8 MG/DL (8.8-10.2); CREATININE FOR GFR 5.9 MG/DL (0.70-1.30); GLOMERULAR FILTRATION RATE 10.2 (>49); PHOSPHORUS LEVEL 4.9 MG/DL (2.5-4.9); POTASSIUM SERUM 4.3 MEQ/L (3.5-5.1)
[2018-11-21] MEDS ORDERED: HEPARIN 1,000 UNITS/ML 10ML VIAL (FOR RADIOLOGY& DIALYSIS ONLY) IV ONE (11:00)
[2018-11-21] MEDS ORDERED: HEPARIN 1,000 UNITS/ML 10ML VIAL (FOR RADIOLOGY& DIALYSIS ONLY) XX ONE (11:00)
[2018-11-21 15:17] VITALS: BP 142/70
[2018-11-21 16:15] LABS: C REACTIVE PROTEIN QUANTITATIV 12.3 MG/DL (0.00-0.30)
[2018-11-21] MEDS: WARFARIN SOD 2 MG TAB PO SCH (16:48)
--- NOTE | 2018-11-21 20:46 | IPN ---
DATE: 11/21/2018 SUBJECTIVE: The patient was seen and examined the bedside today morning during hemodialysis. He is tolerating the hemodialysis procedure well. He denies any active complaints at this time. OBJECTIVE: Vital signs: Temperature is 99.8 degrees Fahrenheit, blood pressure 148/72, pulse is 70, respiratory rate of 16, saturating 89% on room air. Intake and output: Urine output recorded is 375 mL so far today since overnight. Weight in the bed scale is not available. PHYSICAL EXAMINATION: GENERAL: The patient is awake, alert, oriented times two, lying in bed getting hemodialysis done in no apparent distress. HEAD AND NECK: Extraocular muscles intact. Pupils equally round and reactive to light. Mucous membranes are moist. Neck is supple. She has a left internal jugular (IJ) tunneled hemodialysis catheter, which is being used for dialysis. CARDIOVASCULAR: S1, S2, regular rate. Trace edema of the left lower extremity. RESPIRATORY: Chest is clear to auscultation bilaterally. Bilateral equal air entry. No rales or rhonchi. ABDOMEN: Soft, obese. Positive bowel sounds. MUSCULOSKELETAL: Left transmetatarsal site amputation and right above-knee amputation were noted. Right arm has a peripherally inserted central catheter (PICC) line. CENTRAL NERVOUS SYSTEM: He is oriented times two, follows commands, moves all extremities. LABORATORY REVIEW: CBC showed WBC of 13.7, hemoglobin 9.4, platelets are 258. BMP showed sodium 135, potassium 4.3, chloride 100, bicarbonate 28, BUN 46, creatinine is 5.9. C-reactive protein is 12.3, albumin is 2.1. CURRENT INPATIENT MEDICATIONS: The patient's medications were all reviewed by me, and there is no change in the medications today as compared with yesterday. ASSESSMENT AND PLAN: 1. End-stage renal disease. The patient is being dialyzed today according to the Tuesday, , Tuesday schedule. Ultrafiltration goal will be 3 liters as tolerated by his blood pressure. 2. Anemia and end-stage renal disease. Hemoglobin level is 9.4, which is slightly suboptimal; however, continue current dose of Aranesp 200 mcg with hemodialysis. 3. Hypertension with end-stage renal disease. Blood pressure is optimal. Continue current dose of amlodipine 10 mg daily, atenolol 50 mg by mouth daily, hydralazine 25 mg by mouth three times a day. 4. Enterococcus bacteremia and possible discitis. The patient is currently on intravenous (IV) ampicillin and ceftriaxone. C-reactive protein continues to be high. Management is as per infectious disease recommendations.
[2018-11-21] MEDS: QUEtiapine FUMARATE 12.5 MG HALF-TAB PO SCH (21:16)
[2018-11-21] MEDS: rOPINIRole 0.25 MG TAB(REQUIP) PO SCH (21:17)
[2018-11-21 22:00] VITALS: BP 140/70
[2018-11-22] MEDS: AMPICILLIN SOD 2 GM in D5W MINI-BAG PLUS 100 ML IV SCH ×2 (05:18→17:14)
[2018-11-22] MEDS: SODIUM CHLORIDE 0.9% INJ 10 ML SYR IV SCH ×2 (05:19→17:13)
[2018-11-22] MEDS: NORCO, ANEXSIA 5/325MG TABLET (HYDROcodone/ACETAMINOPHEN) PO PRN ×3 (05:56→21:16)
[2018-11-22] MEDS: cefTRIAXone SOD 2 GM in D5W MINI-BAG PLUS 50 ML IV SCH ×2 (05:56→17:43)
[2018-11-22 06:00] VITALS: BP 141/72
[2018-11-22] MEDS: SODIUM CHLORIDE 0.9% INJ 10 ML SYR IV PRN (07:09)
[2018-11-22 07:12] LABS: HEMATOCRIT 32.8 % (42.0-52.0); HEMOGLOBIN 10.5 g/dl (13.5-17.5); MEAN CORPUSCULAR HEMOGLOBIN 32.7 pg (27.0-33.0); MEAN CORPUSCULAR VOLUME 102.2 fl (80.0-96.0); PLATELET COUNT, AUTOMATED 253 10^3/uL (150-450); RED BLOOD COUNT 3.21 10^6/uL (4.30-6.10); WHITE BLOOD COUNT 11.3 10^3/uL (4.0-10.0)
[2018-11-22 07:42] LABS: C REACTIVE PROTEIN QUANTITATIV 13.6 MG/DL (0.00-0.30); CALCIUM LEVEL 8.6 MG/DL (8.8-10.2); CREATININE FOR GFR 4.5 MG/DL (0.70-1.30); GLOMERULAR FILTRATION RATE 13.9 (>49); POTASSIUM SERUM 4.1 MEQ/L (3.5-5.1)
[2018-11-22 08:01] LABS: ERYTHROCYTE SEDIMENTATION RATE 128 mm/hr (0-20)
[2018-11-22] MEDS: PANTOPRAZOLE 40MG TAB (PROTONIX) PO SCH (08:10)
[2018-11-22] MEDS: HumaLOG INSULIN (NovoLOG) PER UNIT SC SCH ×4 (08:10→21:16)
[2018-11-22] MEDS: GABAPENTIN 100 MG CAP PO SCH ×3 (08:10→21:15)
[2018-11-22] MEDS: ASPIRIN 81 MG ENTERIC TAB PO SCH (08:10)
[2018-11-22] MEDS: amLODIPine 10 MG TAB PO SCH (08:11)
[2018-11-22] MEDS: atenoloL 50 MG TAB PO SCH (08:11)
[2018-11-22] MEDS: ATORVASTATIN 20 MG TAB PO SCH (08:11)
[2018-11-22] MEDS: SENOKOT S TAB PO SCH ×2 (08:11→21:14)
[2018-11-22] MEDS: **hydrALAZINE HCL** 25 MG TAB PO SCH ×3 (08:12→21:15)
[2018-11-22] MEDS: NYSTATIN 100,000 UNITS/GM TOPICAL PWD 15 GM TOP SCH ×2 (08:12→21:17)
[2018-11-22] MEDS: MOM 30ML SUSPENSION UDC PO SCH ×2 (08:12→21:14)
[2018-11-22] MEDS: KETOCONAZOLE 2% CREAM TOP SCH ×2 (08:13→21:15)
[2018-11-22] MEDS: WARFARIN SOD 2 MG TAB PO SCH (17:13)
[2018-11-22 20:32] VITALS: BP 145/71
[2018-11-22] MEDS: QUEtiapine FUMARATE 12.5 MG HALF-TAB PO SCH (21:14)
[2018-11-22] MEDS: rOPINIRole 0.25 MG TAB(REQUIP) PO SCH (21:14)
[2018-11-23 05:26] VITALS: BP 146/67
[2018-11-23] MEDS: AMPICILLIN SOD 2 GM in D5W MINI-BAG PLUS 100 ML IV SCH ×2 (06:12→17:10)
[2018-11-23] MEDS: SODIUM CHLORIDE 0.9% INJ 10 ML SYR IV SCH ×2 (06:14→18:03)
[2018-11-23] MEDS: cefTRIAXone SOD 2 GM in D5W MINI-BAG PLUS 50 ML IV SCH ×2 (06:42→18:03)
[2018-11-23] MEDS: GABAPENTIN 100 MG CAP PO SCH ×3 (06:54→21:17)
[2018-11-23] MEDS: MOM 30ML SUSPENSION UDC PO SCH ×2 (06:54→21:17)
[2018-11-23] MEDS: ASPIRIN 81 MG ENTERIC TAB PO SCH (06:54)
[2018-11-23] MEDS: PANTOPRAZOLE 40MG TAB (PROTONIX) PO SCH (06:55)
[2018-11-23] MEDS: NORCO, ANEXSIA 5/325MG TABLET (HYDROcodone/ACETAMINOPHEN) PO PRN ×3 (06:55→21:18)
[2018-11-23] MEDS: SENOKOT S TAB PO SCH ×2 (06:56→21:17)
[2018-11-23] MEDS: ATORVASTATIN 20 MG TAB PO SCH (06:56)
[2018-11-23] MEDS: amLODIPine 10 MG TAB PO SCH (06:56)
[2018-11-23] MEDS: **hydrALAZINE HCL** 25 MG TAB PO SCH ×3 (06:57→21:19)
[2018-11-23] MEDS: atenoloL 50 MG TAB PO SCH (06:57)
[2018-11-23] MEDS: HumaLOG INSULIN (NovoLOG) PER UNIT SC SCH ×4 (07:59→21:00)
[2018-11-23] MEDS ORDERED: HEPARIN 1,000 UNITS/ML 10ML VIAL (FOR RADIOLOGY& DIALYSIS ONLY) XX ONE (11:15)
[2018-11-23] MEDS ORDERED: HEPARIN 1,000 UNITS/ML 10ML VIAL (FOR RADIOLOGY& DIALYSIS ONLY) IV ONE (11:15)
[2018-11-23] MEDS: NYSTATIN 100,000 UNITS/GM TOPICAL PWD 15 GM TOP SCH ×2 (12:25→21:19)
[2018-11-23] MEDS: KETOCONAZOLE 2% CREAM TOP SCH ×2 (12:26→21:19)
--- NOTE | 2018-11-23 13:26 | IPN ---
DATE OF SERVICE: 11/23/2018 SUBJECTIVE: The patient was seen and examined the bedside today morning. He is afebrile, hemodynamically stable. He is being dialyzed. He is tolerating the hemodialysis procedure well. He denies any active complaints. OBJECTIVE: Vital signs: Temperature is 97.1 degrees Fahrenheit, blood pressure 146/61, pulse is 57, respiratory rate of 16, saturating 93% on room air. Intake and output: There is no urine output recorded. Weight in the bed scale is 99.8 kg. PHYSICAL EXAM: General: The patient is awake, alert, oriented times two, laying in bed, getting hemodialysis done. Head and neck exam: Extraocular muscles intact. Pupils equally round and reactive to light. Mucous membranes are moist. Neck is supple. Left internal jugular (IJ) tunneled hemodialysis catheter, which is being used for dialysis. Cardiovascular: S1, S2, regular rate. Trace edema of the left lower extremity. Respiratory: Chest is clear to auscultation bilaterally. Bilateral equal air entry. No rales or rhonchi. Abdomen is soft, obese. Positive bowel sounds. Musculoskeletal: Left transmetatarsal side amputation and left lower extremity edema, right above-knee amputation. Central nervous system ([employer]): He is oriented times two, moves all extremities and able to follow commands. LAB REVIEW: CBC was done yesterday, which showed a hemoglobin of 10.5 and BMP done yesterday showed a potassium of 4.1 and a creatinine of 4.5. C-reactive protein is still high at 13.6. CURRENT MEDICATIONS: The patient's medications were all reviewed by me. He continues to be on IV ceftriaxone and IV ampicillin. No other change in the medications today as compared with yesterday. ASSESSMENT AND PLAN: 1. End-stage renal disease. The patient is being dialyzed according to Tuesday, , Tuesday schedule. Ultrafiltration goal will be 3 liters. 2. Anemia in end-stage renal disease. Hemoglobin levels are optimal. Continue current dose of Aranesp. 3. Hypertension. Continue current dose of atenolol, amlodipine, and hydralazine. 4. Enterococcus bacteremia and discitis. He continues to be on ceftriaxone and ampicillin.
[2018-11-23 14:00] VITALS: BP 89/63
--- NOTE | 2018-11-23 14:06 | IPNPDOC ---
Text Note Date of Service The patient was seen on 11/23/18. NOTE Subjective: Patient was seen lying in bed while getting dialysis today. Patient is currently ALC status patient denies any complaints today and is feeling otherwise well. Patient is still getting his IV antibiotics for his discitis. Patient not complaining of any back pain. No events since the last visit 1 week ago. Review of systems General: Patient denies fevers HEENT: Patient denies headaches Cardiovascular: Patient denies chest pain Respiratory: Patient denies shortness of breath, cough GI: Patient denies abdominal pain, nausea, vomiting, diarrhea : Patient denies pain or difficulty with urination Neurological: Patient denies numbness or tingling in extremities Extremities: Patient denies swelling or pain in extremities Objective: Vitals: (see below) General: No acute distress, laying comfortably in bed. HEENT: Normocephalic, atraumatic, moist mucous membranes. Neck: No JVD or lymphadenopathy Cardiac: RRR, No murmurs Pulm: Clear to auscultation b/l. No wheezing, rhonchi Abd: NT/ND + BS Ext: Patient has an hutwr-blt-ayzu amputation of the right leg. The left briggs has some healed wounds. Dorsalis pedis pulse is present in the left foot. Gayr richards also has a midfoot amputation on the left foot. Labs (see below) Images: No new images have been performed Assessment/Plan 1. Bacteremia/early discitis of L3-L4. Patient had positive blood cultures 2 for Enterococcus faecalis. Possible source was tunneled dialysis catheter. Patient is continued on 2 g of ampicillin and 2 g ceftriaxone every 12 hours until 12/17/2018. A repeat MRI at the end of therapy should be done to reevaluate discitis. We appreciate Dr. Gaona's help in managing the patient. 2. End-stage renal disease. Nephrology is following. Patient receives dialysis on a Tuesday, , Tuesday schedule. 3. Diabetes. Patient is on a sliding scale. 4. COPD. Patient is on breo at home and his nebulizer been switched when necessary. 5. Coronary artery disease. Continue with aspirin, statin, and atenolol with hold parameters. 6. Hypertension and hypertensive heart disease. Continue with atenolol and amlodipine with hold parameters. Continue hydralazine. 7. Restless leg syndrome. Continue Requip daily at bedtime. 8. DVT. INR between 2 and 3 and will continue with Coumadin. 9. Homelessness. Patient is currently being evicted from his apartment. Discharge planners are working with patient social media intern in order to prevent this however, the patient is going to need subacute rehabilitation placement for continuation of his IV antibiotic therapy as the patient will not be able to handle his IV antibiotics himself. We are hopeful that we will be able to place the patient at [facility] for further management of antibiotics. 10. Morbid obesity complicated care. 11. Schizoaffective disorder. Psychiatry consulted and 25 mg a cervical started at that time however, the patient was more somnolent this been decreased to 12.5 mg. 12. GERD. Continue Protonix 40 mg daily. 13. Anemia of end-stage renal disease. 14. Constipation. Patient has been on Senokot S, milk of magnesia, sustained Colace. We have started patient on lactulose and the patient began having bowel movements. 15 seborrheic dermatitis. I started the patient on ketoconazole 2% cream to be applied to his face twice a day. DVT prophy: Warfarin Dispo: Pending placement in a long-term facility or when the patient finishes his IV antibiotics. I saw and evaluated the patient. I agree with the findings and plan of care as documented in the above note VS,[place], I+O VS, [place], I+O Vital Signs Date Time Temp Pulse Resp B/P (MAP) Pulse Ox O2 Delivery O2 Flow Rate FiO2 11/23/18 12:57 16 11/23/18 06:57 146/67 11/23/18 06:57 57 11/23/18 05:26 97.1 93 I&O- Last 24 Hours up to 6 AM 11/23/18 06:00 Intake Total 1500 ml Output Total 150 ml Balance 1350 ml SOBEIDA THACKER DO Nov 23, 2018 14:06 SMITHA AYALA MD Nov 25, 2018 10:42
[2018-11-23] MEDS: WARFARIN SOD 2 MG TAB PO SCH (17:06)
[2018-11-23] MEDS: SODIUM CHLORIDE 0.9% INJ 10 ML SYR IV PRN (19:45)
[2018-11-23 20:51] VITALS: BP 120/68
[2018-11-23] MEDS: QUEtiapine FUMARATE 12.5 MG HALF-TAB PO SCH (21:17)
[2018-11-23] MEDS: rOPINIRole 0.25 MG TAB(REQUIP) PO SCH (21:18)
[2018-11-23] MEDS: CYCLOBENZAPRINE 5MG TABLET PO PRN (21:19)
[2018-11-24] MEDS: AMPICILLIN SOD 2 GM in D5W MINI-BAG PLUS 100 ML IV SCH ×2 (05:29→17:44)
[2018-11-24] MEDS: SODIUM CHLORIDE 0.9% INJ 10 ML SYR IV SCH ×2 (05:33→17:44)
[2018-11-24 05:36] VITALS: BP 151/73
[2018-11-24] MEDS: cefTRIAXone SOD 2 GM in D5W MINI-BAG PLUS 50 ML IV SCH ×2 (06:21→18:27)
[2018-11-24] MEDS: GABAPENTIN 100 MG CAP PO SCH ×3 (08:44→20:29)
[2018-11-24] MEDS: MOM 30ML SUSPENSION UDC PO SCH ×2 (08:44→20:29)
[2018-11-24] MEDS: **hydrALAZINE HCL** 25 MG TAB PO SCH ×3 (08:44→20:29)
[2018-11-24] MEDS: ASPIRIN 81 MG ENTERIC TAB PO SCH (08:44)
[2018-11-24] MEDS: amLODIPine 10 MG TAB PO SCH (08:44)
[2018-11-24] MEDS: PANTOPRAZOLE 40MG TAB (PROTONIX) PO SCH (08:45)
[2018-11-24] MEDS: SENOKOT S TAB PO SCH ×2 (08:45→20:29)
[2018-11-24] MEDS: ATORVASTATIN 20 MG TAB PO SCH (08:45)
[2018-11-24] MEDS: atenoloL 50 MG TAB PO SCH (08:45)
[2018-11-24] MEDS: NYSTATIN 100,000 UNITS/GM TOPICAL PWD 15 GM TOP SCH ×2 (08:46→20:30)
[2018-11-24] MEDS: HumaLOG INSULIN (NovoLOG) PER UNIT SC SCH ×4 (08:46→20:18)
[2018-11-24] MEDS: KETOCONAZOLE 2% CREAM TOP SCH ×2 (08:47→20:30)
[2018-11-24 10:22] LABS: INR 1.24; PROTHROMBIN TIME 15.3 SECONDS (11.8-14.0)
[2018-11-24] MEDS: WARFARIN SOD 4 MG TAB PO SCH (16:13)
[2018-11-24] MEDS: rOPINIRole 0.25 MG TAB(REQUIP) PO SCH (20:29)
[2018-11-24] MEDS: QUEtiapine FUMARATE 12.5 MG HALF-TAB PO SCH (20:29)
[2018-11-25] MEDS: AMPICILLIN SOD 2 GM in D5W MINI-BAG PLUS 100 ML IV SCH ×2 (05:57→18:44)
[2018-11-25] MEDS: SODIUM CHLORIDE 0.9% INJ 10 ML SYR IV SCH ×2 (06:00→18:44)
[2018-11-25 06:07] VITALS: BP 108/53
[2018-11-25] MEDS: SENOKOT S TAB PO SCH ×2 (06:54→21:13)
[2018-11-25] MEDS: ATORVASTATIN 20 MG TAB PO SCH (06:54)
[2018-11-25] MEDS: SODIUM CHLORIDE NASAL 0.65% SPRAY BTL (OCEAN) PRN (06:54)
[2018-11-25] MEDS: MOM 30ML SUSPENSION UDC PO SCH ×2 (06:54→21:13)
[2018-11-25] MEDS: cefTRIAXone SOD 2 GM in D5W MINI-BAG PLUS 50 ML IV SCH ×2 (06:55→18:44)
[2018-11-25] MEDS: PANTOPRAZOLE 40MG TAB (PROTONIX) PO SCH (06:55)
[2018-11-25 07:32] LABS: HEMATOCRIT 31.8 % (42.0-52.0); HEMOGLOBIN 10.1 g/dl (13.5-17.5); MEAN CORPUSCULAR HGB CONC 31.8 g/dl (32.0-36.5); MEAN CORPUSCULAR VOLUME 100.6 fl (80.0-96.0); PLATELET COUNT, AUTOMATED 262 10^3/uL (150-450); RED BLOOD COUNT 3.16 10^6/uL (4.30-6.10)
[2018-11-25 07:47] LABS: C REACTIVE PROTEIN QUANTITATIV 9.63 MG/DL (0.00-0.30); CALCIUM LEVEL 8.6 MG/DL (8.8-10.2); CREATININE FOR GFR 5.75 MG/DL (0.70-1.30); GLOMERULAR FILTRATION RATE 10.5 (>49); POTASSIUM SERUM 4.7 MEQ/L (3.5-5.1)
[2018-11-25 08:00] LABS: ERYTHROCYTE SEDIMENTATION RATE 128 mm/hr (0-20)
[2018-11-25] MEDS: **hydrALAZINE HCL** 25 MG TAB PO SCH ×3 (08:41→21:13)
[2018-11-25] MEDS: amLODIPine 10 MG TAB PO SCH (08:41)
[2018-11-25] MEDS: HumaLOG INSULIN (NovoLOG) PER UNIT SC SCH ×4 (08:45→20:47)
[2018-11-25] MEDS: GABAPENTIN 100 MG CAP PO SCH ×3 (09:00→21:13)
[2018-11-25] MEDS: atenoloL 50 MG TAB PO SCH (09:00)
[2018-11-25] MEDS: KETOCONAZOLE 2% CREAM TOP SCH ×2 (13:59→21:14)
[2018-11-25] MEDS: ASPIRIN 81 MG ENTERIC TAB PO SCH (14:00)
[2018-11-25] MEDS: NYSTATIN 100,000 UNITS/GM TOPICAL PWD 15 GM TOP SCH ×2 (14:00→21:00)
[2018-11-25] MEDS: NORCO, ANEXSIA 5/325MG TABLET (HYDROcodone/ACETAMINOPHEN) PO PRN ×3 (14:00→23:15)
[2018-11-25 14:07] LABS: INR 1.23; PROTHROMBIN TIME 15.2 SECONDS (11.8-14.0)
--- NOTE | 2018-11-25 14:24 | IPN ---
DATE: 11/25/2018 Mr. Cisneros is seen this morning during hemodialysis. He is resting comfortably and denies any new issues. He has no dyspnea, chest pain, fever or chills. PHYSICAL EXAMINATION: Temperature 97.8 degrees Fahrenheit, heart rate 62 per minute and respiratory rate 20 per minute. Blood pressure 108/53 mmHg and oxygen saturation 96% on room air. Head is atraumatic. Neck is supple and jugular venous distention (JVD) is difficult to be assessed. Heart sounds are regular and lungs clear to auscultation. Abdomen is obese, soft and nontender. Extremities are without any cyanosis or clubbing. He has a right mfgqs-zom-bdri amputation and left transmetatarsal amputation previously. Today's labs show WBC count 10.0, hemoglobin 10.1 and hematocrit 31.8. Platelets 262. His ESR is still elevated at 128. Sodium is 131, potassium 4.7, CO2 25, BUN 43 and creatinine 5.75. Calcium 8.6 and a C-reactive protein is 9.6. PROBLEMS: 1. End-stage renal disease. The patient is being dialyzed and he is tolerating dialysis treatment reasonably well. His Perma-Cath is functioning. 2. Hyponatremia. Sodium level have worsened over the last few days related to end-stage renal disease. This will improve with dialysis today. His electrolytes will be checked again next week. 3. Anemia. His anemia is stable and we will continue with Aranesp once a week during dialysis. 4. Enterococcus bacteremia. The patient remains on antibiotics and he is currently afebrile. He is on ampicillin 2 grams every 12 hours now and ceftriaxone 2 grams every 12 hours, which he is going to continue until end of November. 5. Hypertension. Blood pressure has been reasonably well-controlled. It is somewhat low during dialysis now. I will have to watch closely. We may have to cut down his hydralazine dose and hold the morning dose on dialysis days.
[2018-11-25] MEDS: WARFARIN SOD 4 MG TAB PO SCH (17:03)
[2018-11-25] MEDS: QUEtiapine FUMARATE 12.5 MG HALF-TAB PO SCH (21:13)
[2018-11-25] MEDS: rOPINIRole 0.25 MG TAB(REQUIP) PO SCH (21:13)
[2018-11-25] MEDS: CYCLOBENZAPRINE 5MG TABLET PO PRN (23:15)
[2018-11-26] MEDS: AMPICILLIN SOD 2 GM in D5W MINI-BAG PLUS 100 ML IV SCH ×2 (05:53→17:20)
[2018-11-26 06:00] VITALS: BP 106/49
[2018-11-26] MEDS: cefTRIAXone SOD 2 GM in D5W MINI-BAG PLUS 50 ML IV SCH ×2 (06:52→18:27)
[2018-11-26] MEDS: SODIUM CHLORIDE 0.9% INJ 10 ML SYR IV SCH ×2 (06:53→17:20)
[2018-11-26 07:23] LABS: INR 1.35; PROTHROMBIN TIME 16.4 SECONDS (11.8-14.0)
[2018-11-26] MEDS: ATORVASTATIN 20 MG TAB PO SCH (08:07)
[2018-11-26] MEDS: GABAPENTIN 100 MG CAP PO SCH ×3 (08:08→20:43)
[2018-11-26] MEDS: SENOKOT S TAB PO SCH ×2 (08:08→20:43)
[2018-11-26] MEDS: ASPIRIN 81 MG ENTERIC TAB PO SCH (08:08)
[2018-11-26] MEDS: PANTOPRAZOLE 40MG TAB (PROTONIX) PO SCH (08:08)
[2018-11-26] MEDS: amLODIPine 10 MG TAB PO SCH (08:09)
[2018-11-26] MEDS: NORCO, ANEXSIA 5/325MG TABLET (HYDROcodone/ACETAMINOPHEN) PO PRN ×2 (08:09→18:46)
[2018-11-26] MEDS: MOM 30ML SUSPENSION UDC PO SCH ×2 (08:09→20:42)
[2018-11-26] MEDS: NYSTATIN 100,000 UNITS/GM TOPICAL PWD 15 GM TOP SCH ×2 (08:10→20:47)
[2018-11-26] MEDS: atenoloL 50 MG TAB PO SCH (08:10)
[2018-11-26] MEDS: KETOCONAZOLE 2% CREAM TOP SCH ×2 (08:10→20:47)
[2018-11-26] MEDS: **hydrALAZINE HCL** 25 MG TAB PO SCH ×3 (08:39→20:43)
[2018-11-26] MEDS: HumaLOG INSULIN (NovoLOG) PER UNIT SC SCH ×4 (09:04→21:00)
[2018-11-26 15:24] VITALS: BP 151/70
[2018-11-26] MEDS: WARFARIN SOD 4 MG TAB PO SCH (17:19)
[2018-11-26] MEDS: rOPINIRole 0.25 MG TAB(REQUIP) PO SCH (20:43)
[2018-11-26] MEDS: QUEtiapine FUMARATE 12.5 MG HALF-TAB PO SCH (20:43)
[2018-11-27] MEDS: SODIUM CHLORIDE 0.9% INJ 10 ML SYR IV PRN (05:41)
[2018-11-27 06:00] VITALS: BP 151/65
[2018-11-27] MEDS: SODIUM CHLORIDE 0.9% INJ 10 ML SYR IV SCH (06:13)
[2018-11-27] MEDS: cefTRIAXone SOD 2 GM in D5W MINI-BAG PLUS 50 ML IV SCH (06:13)
[2018-11-27] MEDS: AMPICILLIN SOD 2 GM in D5W MINI-BAG PLUS 100 ML IV SCH (06:14)
[2018-11-27 08:01] LABS: HEMATOCRIT 31.3 % (42.0-52.0); HEMOGLOBIN 9.9 g/dl (13.5-17.5); MEAN CORPUSCULAR HEMOGLOBIN 31.5 pg (27.0-33.0); MEAN CORPUSCULAR HGB CONC 31.6 g/dl (32.0-36.5); MEAN CORPUSCULAR VOLUME 99.7 fl (80.0-96.0); PLATELET COUNT, AUTOMATED 298 10^3/uL (150-450); RED BLOOD COUNT 3.14 10^6/uL (4.30-6.10); WHITE BLOOD COUNT 10.4 10^3/uL (4.0-10.0)
[2018-11-27 08:16] LABS: CALCIUM LEVEL 8.9 MG/DL (8.8-10.2); CREATININE FOR GFR 6.26 MG/DL (0.70-1.30); GLOMERULAR FILTRATION RATE 9.5 (>49); INR 1.4; POTASSIUM SERUM 4.9 MEQ/L (3.5-5.1); PROTHROMBIN TIME 16.9 SECONDS (11.8-14.0)
[2018-11-27] MEDS: PANTOPRAZOLE 40MG TAB (PROTONIX) PO SCH (08:38)
[2018-11-27] MEDS: **hydrALAZINE HCL** 25 MG TAB PO SCH (08:38)
[2018-11-27] MEDS: MOM 30ML SUSPENSION UDC PO SCH (08:38)
[2018-11-27] MEDS: amLODIPine 10 MG TAB PO SCH (08:38)
[2018-11-27] MEDS: ATORVASTATIN 20 MG TAB PO SCH (08:38)
[2018-11-27 08:39] VITALS: BP 151/65
[2018-11-27] MEDS: ACETAMINOPHEN 500 MG TAB PO PRN (08:39)
[2018-11-27] MEDS: GABAPENTIN 100 MG CAP PO SCH (08:39)
[2018-11-27] MEDS: SENOKOT S TAB PO SCH (08:39)
[2018-11-27] MEDS: atenoloL 50 MG TAB PO SCH (08:39)
[2018-11-27] MEDS: ASPIRIN 81 MG ENTERIC TAB PO SCH (08:39)
[2018-11-27] MEDS: KETOCONAZOLE 2% CREAM TOP SCH (08:40)
[2018-11-27] MEDS: NYSTATIN 100,000 UNITS/GM TOPICAL PWD 15 GM TOP SCH (08:40)
[2018-11-27] MEDS: HumaLOG INSULIN (NovoLOG) PER UNIT SC SCH ×2 (08:48→11:58)
[2018-11-27] MEDS ORDERED: QUET1TAB7 PO (09:56)
[2018-11-27] MEDS ORDERED: COUM1TAB14 PO (10:16)
--- NOTE | 2018-11-27 11:26 | DS.PDOC ---
Discharge Summary General Date of Admission Nov 03, 2018 at 14:54 Date of Discharge 11/27/18 Attending Physician: SMITHA AYALA MD Specialist/Consultants Involve: KEENAN VAIL MD Specialist/Consultants Involve Jose Francisco Gaona MD; Beny Henderson DO; Eugene Jeffers MD; Tadeo Cm MD Discharge Summary Primary care provider: Alok Casey M.D. PROCEDURES PERFORMED DURING STAY: Tunneled permacath placement in left internal jugular vein. ADMITTING/DISCHARGE DIAGNOSES: 1. Bacteremia/early discitis of L3-L4 2. End-stage renal disease 3. Diabetes mellitus 4. Chronic obstructive pulmonary disease 5. Coronary artery disease 6. Hypertension and hypertensive heart disease 7. Restless leg syndrome 8. DVT 9. Homelessness 10. Morbid obesity complicating care 11. Schizoaffective disorder 12. GERD 13. Anemia of end-stage renal disease 14. Constipation 15. Seborrheic dermatitis COMPLICATIONS/CHIEF COMPLAINT: Low back pain HISTORY OF PRESENT ILLNESS/HOSPITAL COURSE: Patient is a 68-year-old male who presented to the emergency department on 11/03/2018 with a chief complaint of low back pain. Patient was saying his back pain worsening and he can no longer tolerate it which prompted him to present to the emergency room. In the emerge ncy room patient was found to be febrile. According to patient, he's been having diarrhea has been incontinent of stool in different areas of his apartment. Patient does have a dialysis cath in place. Patient is nonadherent with medical therapies. Patient was admitted initially for a fever of unknown origin. Blood cultures were drawn and did show Enterococcus faecalis. Patient had an MRI of his lumbar spine ordered on 11/04/2018 which showed possible early discitis. Because of the patient's positive blood cultures for Enterococcus faecalis, patient was thought to have hematological spread of bacteria to the disk between L3 and L4. Infectious disease was consulted and started the patient on c eftriaxone 2 g of ampicillin 2 g IV twice a day. Patient was being evicted from his apartment as of 11/17/2018. Patient's dialysis port was believed to be the source of infection. His port was removed and was replaced with a tunneled permacath in his left IJ. Patient also received a PICC line with plans to send the patient home on 6 weeks of IV antibiotics. Because the patient was unable to take care of himself and had no one that would be able to do the antibiotics, patient would have to go to a detention facility for further care. At first, it was difficult to find placement for the patient as the patient has schizoaffective disorder and has had issues with detention facilities in the past. Patient was seen by psychiatry who offered Seroquel at night. This has controlled the patient's behaviors and the patient has been cooperative and participating in his care since starting on Seroquel. Patient was made ALC status a week and a half ago as he waited placement. Patient was placed at [facility] and was deemed ready for discharge on 11/27/2018. Patient was discharged to [facility] and will continue with his IV antibiotics until 12/17/2018. DISCHARGE MEDICATIONS: Please see below. ALLERGIES: Please see below. PHYSICAL EXAMINATION ON DISCHARGE: Vitals: (see below) General: No acute distress, laying comfortably in bed. HEENT: Moist mucous membranes. Neck: No JVD or lymphadenopathy Cardiac: RRR, No murmurs Pulm: Clear to auscultation b/l. No wheezing, rhonchi Abd: NT/ND + BS Ext: Patient has a right veoly-kgq-nike amputation. Patient's left leg has some healed wounds on the briggs. 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 LABORATORY DATA: Please see below. IMAGING: A thoracic spine x-ray performed on 11/03/2017 showed chronic changes there is evidence to suggest diffuse idiopathic skeletal hyperostosis. A lumbar x-ray performed on 11/03/2017 showed chronic changes with a partial syndesmophyte formation seen left of L3-4. A chest x-ray performed on 11/03/2018 showed no acute disease, central venous tunneled catheter in place. A CT of the chest performed without contrast on 11/03/2018 showed limited examination showing no acute disease. A CT of the abdomen and pelvis performed without contrast on 11/03/2018 showed no significant change from prior exams there is cholelithiasis, status quo. Renal cysts and renal vascular calcifications status quo. Arterial aneurysms status quo. A CT of the head without contrast on 11/03/2018 showed chronic microvascular disease, no acute intracranial lesion or injury. A MRI of the lumbar spine without contrast performed on 11/04/2017 shows subtle changes in the lateral aspect of the L3-4 disc level with some hyperintense signal on T2 with extension into the adjacent psoas muscle with intramuscular T2 edema present and I suggest this from presents early discitis and paraspinal inflammatory process. It is not clearly represent abscess at this time. It may be early paraspinal phlegmon but does not represent epidural abscess. It does not involve the neural arch. However at this level posterior to the suspected paraspinal inflammatory process, there is a left paracentral disc bulge in the lateral disc protrusion combined with facet arthritis and causing L3 nerve root compression in the foramen. The L3 right root is intact. The L4-5 disc level shows bulge without central canal stenosis with combined factors causing foraminal encroachment and loss of perineural fat without L4 nerve root compression. The L5-S1 disc level shows disc bulge without spinal stenosis and there is foraminal encroachment by combined factors compressing the right L5 nerve root. The other disc level showed no significant finding. A MRI of the lumbar spine without contrast performed 11/11/2017 shows abnormal marrow signal in the inferior aspect of L3 in the superior aspect of L4 asso ciated with dyspnea on the L3-4 disc space. There is a linear focus of T2 intermediate signal measuring 2.9 x 9 mm projecting over the left paracentral aspect of the spinal canal not fully characterized on this limited scan. Suggest repeat study when patient was able tolerate a more complete exam. I did speak with radiology after this exam and they reviewed the study and the believe that this foci was extension of the disc and not an abscess or phlegmon. PROGNOSIS: Fair ACTIVITY: As tolerated. DIET: Consistent carbohydrate and renal DISCHARGE PLAN/DISPOSITION: Discharge to [facility] detention facility DISCHARGE INSTRUCTIONS: 1. Follow-up with provider at [facility] when he arrived to the facility. 2. Continue with ceftriaxone 2 g and ampicillin 2 g IV twice a day and he'll 1928 2018. 3. Continue to follow ESR, CRP. 4. Patient's INR was subtherapeutic and his Coumadin dose had been increased. Please monitor patient's INR. 5. Repeat MRI after completion of antibiotics for resolution of discitis 6. Return to emergency department if symptoms worsen. DISCHARGE CONDITION: Stable. I saw and evaluated the patient. I agree with the findings and plan of care as documented in the documenters note. I spent 45 minutes coordinating this patient's discharge. Vital Signs/I&Os Vital Signs Date Time Temp Pulse Resp B/P (MAP) Pulse Ox O2 Delivery O2 Flow Rate FiO2 11/27/18 08:39 94 151/65 11/27/18 06:00 98.4 18 94 I&O- Last 24 Hours up to 6 AM 11/27/18 05:59 Intake Total 1810 ml Output Total 550 ml Balance 1260 ml Laboratory Data Labs 24H Laboratory Tests 2 11/26/18 12:00: Bedside Glucose (Misc Panel) 189H 11/26/18 16:40: Bedside Glucose (Misc Panel) 174H 11/26/18 20:30: Bedside Glucose (Misc Panel) 170H 11/27/18 06:34: Bedside Glucose (Misc Panel) 167H 11/27/18 07:47: Nucleated Red Blood Cells % (auto) 0.0, Prothrombin Time 16.9H, Prothromb Time International Ratio 1.40, Anion Gap 12, Glomerular Filtration Rate 9.5L, Blood Urea Nitrogen 43H, Creatinine 6.26H, Sodium Level 133L, Potassium Level 4.9, Chloride Level 97L, Carbon Dioxide Level 24, Calcium Level 8.9 CBC/BMP Laboratory Tests 11/27/18 07:47 Red Blood Count 3.14 L, Mean Corpuscular Volume 99.7 H, Mean Corpuscular Hemoglobin 31.5, Mean Corpuscular Hemoglobin Concent 31.6 L, Red Cell Distribution Width 15.8 H, Calcium Level 8.9 FSBS Laboratory Tests Test 11/26/18 12:00 11/26/18 16:40 11/26/18 20:30 11/27/18 06:34 Range/Units Bedside Glucose (Misc Panel) 189 174 170 167 80-115 MG/DL Discharge Medications Scheduled Amlodipine Besylate (Amlodipine Besylate) 10 Mg Tab, 10 MG PO DAILY, (Reported) Ascorbic Acid (Vitamin C) 500 Mg Capsule, 500 MG PO DAILY, (Reported) Aspirin (Aspirin EC) 81 Mg Tab, 81 MG PO DAILY, (Reported) Atenolol (Atenolol) 50 Mg Tab, 50 MG PO DAILY, (Reported) Atorvastatin Calcium (Atorvastatin Calcium) 40 Mg Tablet, 40 MG PO DAILY, (Reported) Fluticasone/Vilanterol (Breo Ellipta 100-25 Mcg INH) 1 Each Blst.w.dev, 1 PUFF PO DAILY, (Reported) Gabapentin (Gabapentin) 100 Mg Cap, 100 MG PO TID, (Reported) Hydralazine HCl (Hydralazine HCl) 25 Mg Tablet, 25 MG PO TID, (Reported) Insulin Aspart (Novolog) 100 Unit/1 Ml Cartridge, 5 UNITS SC QPM, (Reported) Insulin Detemir (Levemir) 1 Units/0.01 Ml Susp, 55 UNITS SC DAILY, (Reported) Insulin Human Lispro (Novolog) 100 U/Ml Inj, 10 UNITS SC BID, (Reported) MORNING AND AFTERNOON Quetiapine Fumarate (Quetiapine Fumarate) 25 Mg Tablet, 12.5 MG PO QHS Ropinirole HCl (Ropinirole HCl) 0.25 Mg Tablet, 0.25 MG PO QHS, (Reported) Warfarin Sodium (Coumadin) 4 Mg Tablet, 4 MG PO DAILY@17 Scheduled PRN Acetaminophen (Acetaminophen) 500 Mg Tablet, 500 MG PO Q4H PRN for PAIN / FEVER, (Reported) Nitroglycerin (Nitrostat) 0.4 Mg Subl, 0.4 MG SL NITRO PRN for CHEST PAIN, (Reported) Allergies Coded Allergies: bupivacaine (Verified Adverse Reaction, Severe, induces Brugada syndrome, 06/14/18) SOBEIDA THACKER DO Nov 27, 2018 11:26 SMITHA AYALA MD Dec 05, 2018 12:06
--- NOTE | 2018-11-27 21:31 | IPN ---
DATE: 11/24/2018 Mr. Cisneros is doing fairly well. He has agreed to [facility] a pen[facility]iary [facility]. He states that he does not have a home and he was evicted. He denies any nausea, vomiting or diarrhea. He does complain of back pain. He has no fever or chills, nausea, vomiting or diarrhea. No other complaints. Temperature is 97.8, pulse 58, respirations 18, blood pressure 151/73, oxygen saturation 92% on room air, T max was 100 on 11/20. Heart: Normal S1-S2. No murmurs. Lungs: Clear. No wheezes, rales or rhonchi. Abdomen: Obese, soft, nontender. Extremities: Left transmetatarsal amputation, healed right above-knee amputation. Back: Mild lumbosacral tenderness around L2/3/4 . LABORATORY DATA: White count 11.3, hemoglobin 10.5, hematocrit 32.8, platelets to 253. ESR 128, which has been fluctuating between 80 and 148. Sodium 132, potassium 4.1, chloride 99, bicarbonate 27, BUN 35, creatinine 4.5, glucose 157, calcium 8.6, CRP 13.6 which has slowly increased since admission from 7.44. Blood cultures were positive on 11/03 and 11/04, negative on 11/05. Removal of right IJ PermaCath was done on 11/07, placement of left IJ PermaCath was placed on 11/[address] Mak. IMPRESSION: 1. Enterococcus faecalis bacteremia with lumbar diskitis on IV ampicillin and Rocephin. The patient clinically is doing better. Back pain has improved but the erythrocyte sedimentation rate (ESR) has remained elevated and C-reactive protein (CRP) continues to increase. Currently, he is on day number 19 of combination therapy with ampicillin and Rocephin, day number . 2. Placement issue. 3. End-stage renal disease on hemodialysis through a left internal jugular PermaCath. PLAN: Placement is an issue with the patient, according to Rachelle, charge nurse, a penitentiary will not take him with twice daily dosing of ampicillin and Rocephin. He will remain on this combination antibiotic over the weekend and may consider decreasing the dose of Rocephin if CRP decreases or even possibly switching him to vancomycin for hemodialysis. Will discuss the case with infectious disease at [facility] for a second opinion. In the meantime, continue same antibiotics.
== END 2018-11-27 12:35 | DRG 314 ==
LOC: M ED 09:29 → EDBD 09:29 → M ED INP 14:54 → M MS5PR 17:45
PROVIDERS: ADMIT Internal Medicine; ATTEND Internal Medicine
PROC: 02PY33Z Removal of Infusion Device from Great Vessel, Percutaneous Approach (ICD-10-PCS; 2018-11-07)
PROC: 02HV33Z Insertion of Infusion Device into Superior Vena Cava, Percutaneous Approach (ICD-10-PCS; 2018-11-09)
PROC: 0JH63XZ Insertion of Tunneled Vascular Access Device into Chest Subcutaneous Tissue and Fascia, Percutaneous Approach (ICD-10-PCS; principal; 2018-11-09 07:00)
PROC: 02HV33Z Insertion of Infusion Device into Superior Vena Cava, Percutaneous Approach (ICD-10-PCS; 2018-11-14)
DX: T82.7XXA Infection and inflammatory reaction due to other cardiac and vascular devices, implants and grafts, initial encounter (principal); N18.6 End stage renal disease; A41.9 Sepsis, unspecified organism; I13.2 Hypertensive heart and chronic kidney disease with heart failure and with stage 5 chronic kidney disease, or end stage renal disease; I50.32 Chronic diastolic (congestive) heart failure; E87.1 Hypo-osmolality and hyponatremia; M46.46 Discitis, unspecified, lumbar region; Z59.0 Homelessness; E66.01 Morbid (severe) obesity due to excess calories; J44.9 Chronic obstructive pulmonary disease, unspecified; I25.10 Atherosclerotic heart disease of native coronary artery without angina pectoris; G25.81 Restless legs syndrome; D63.1 Anemia in chronic kidney disease; K59.00 Constipation, unspecified; L21.9 Seborrheic dermatitis, unspecified; F25.9 Schizoaffective disorder, unspecified; Z79.899 Other long term (current) drug therapy; Z79.82 Long term (current) use of aspirin; Z88.8 Allergy status to other drugs, medicaments and biological substances; Z79.4 Long term (current) use of insulin; E11.51 Type 2 diabetes mellitus with diabetic peripheral angiopathy without gangrene; Z86.718 Personal history of other venous thrombosis and embolism; F17.200 Nicotine dependence, unspecified, uncomplicated; Z89.611 Acquired absence of right leg above knee; R19.7 Diarrhea, unspecified; Z91.19 Patient's noncompliance with other medical treatment and regimen; Y83.1 Surgical operation with implant of artificial internal device as the cause of abnormal reaction of the patient, or of later complication, without mention of misadventure at the time of the procedure

== ENCOUNTER → 2018-11-29 | Outpatient (REF) ==
[~2018-11-29] MED LIST changes: +ATOR40TA75 PO; +NOVOINJ SC; +QUET1TAB7 PO; -SENN-53 PO; +SENN1TAB40 PO; +SIMV10TA2 PO; -SIMV10TA21 PO; +SIMV20TA2; +SIMV20TA2 PO; -SIMV20TA22; -SIMV20TA22 PO
[2018-11-29 09:12] LABS: HEMATOCRIT 34.3 % (42.0-52.0); HEMOGLOBIN 10.6 g/dl (13.5-17.5); MEAN CORPUSCULAR HEMOGLOBIN 31.5 pg (27.0-33.0); MEAN CORPUSCULAR HGB CONC 30.9 g/dl (32.0-36.5); MEAN CORPUSCULAR VOLUME 102.1 fl (80.0-96.0); PLATELET COUNT, AUTOMATED 330 10^3/uL (150-450); RED BLOOD COUNT 3.36 10^6/uL (4.30-6.10); WHITE BLOOD COUNT 9.4 10^3/uL (4.0-10.0)
[2018-11-29 09:25] LABS: INR 1.51; PROTHROMBIN TIME 17.9 SECONDS (11.8-14.0)
[2018-11-29 09:27] LABS: C REACTIVE PROTEIN QUANTITATIV 5.62 MG/DL (0.00-0.30); CHOLESTEROL RISK RATIO 3.466 (<5)
[2018-11-29 09:33] LABS: ERYTHROCYTE SEDIMENTATION RATE 106 mm/hr (0-20)
== END ==
PROVIDERS: ATTEND Internal Medicine
DX: Z79.01 Long term (current) use of anticoagulants (principal)

== ENCOUNTER → 2018-12-01 | Outpatient (REF) | payer MEDICARE, MEDICAID ==
[~2018-12-01] MED LIST changes: +SENN-53 PO; -SENN1TAB40 PO; -SIMV10TA2 PO; +SIMV10TA21 PO; -SIMV20TA2; -SIMV20TA2 PO; +SIMV20TA22; +SIMV20TA22 PO
[2018-12-01 13:50] LABS: INR 1.2; PROTHROMBIN TIME 14.9 SECONDS (11.8-14.0)
== END ==
PROVIDERS: ATTEND Internal Medicine
DX: N18.6 End stage renal disease (principal)

== ENCOUNTER → 2018-12-06 | Outpatient (REF) ==
[~2018-12-06] MED LIST changes: -SENN-53 PO; +SENN1TAB40 PO; +SIMV10TA2 PO; -SIMV10TA21 PO; +SIMV20TA2; +SIMV20TA2 PO; -SIMV20TA22; -SIMV20TA22 PO
[2018-12-06 09:35] LABS: INR 1.51; PROTHROMBIN TIME 17.9 SECONDS (11.8-14.0)
== END ==
PROVIDERS: ATTEND Internal Medicine
DX: Z79.01 Long term (current) use of anticoagulants (principal)

== ENCOUNTER → 2018-12-11 | Outpatient (REF) ==
[~2018-12-11] MED LIST changes: +SENN-53 PO; -SENN1TAB40 PO; -SIMV10TA2 PO; +SIMV10TA21 PO; -SIMV20TA2; -SIMV20TA2 PO; +SIMV20TA22; +SIMV20TA22 PO
[2018-12-11 12:51] LABS: INR 1.93; PROTHROMBIN TIME 21.8 SECONDS (11.8-14.0)
== END ==
PROVIDERS: ATTEND Internal Medicine
DX: Z79.01 Long term (current) use of anticoagulants (principal)

== ENCOUNTER → 2018-12-11 | Outpatient (REF) ==
[~2018-12-11] MED LIST changes: -SENN-53 PO; +SENN1TAB40 PO; +SIMV10TA2 PO; -SIMV10TA21 PO; +SIMV20TA2; +SIMV20TA2 PO; -SIMV20TA22; -SIMV20TA22 PO
--- NOTE | 2018-12-11 18:40 | REP ---
Left hip: Two views: History: Left hip pain. Findings: AP and frog-leg views of the left hip demonstrate extensive vascular calcification. There is osteoarthritic acetabular spurring. There is mild degenerative sclerosis at the symphysis. Femoral head is smooth and rounded. Periarticular soft tissues are otherwise unremarkable. No acute abnormality. Impression: Mild osteoarthritis. Extensive vascular calcification. There are left inguinal surgical clips. Electronically Signed by Sanjay Da Silva MD 12/12/2018 08:49 A
== END ==
LOC: M RAD 12:59
PROVIDERS: ATTEND Internal Medicine
DX: M16.12 Unilateral primary osteoarthritis, left hip (principal)

== ENCOUNTER → 2018-12-13 | Outpatient (REF) ==
[2018-12-13 10:14] LABS: HEMATOCRIT 33.4 % (42.0-52.0); HEMOGLOBIN 10.3 g/dl (13.5-17.5); MEAN CORPUSCULAR HEMOGLOBIN 30.5 pg (27.0-33.0); MEAN CORPUSCULAR HGB CONC 30.8 g/dl (32.0-36.5); MEAN CORPUSCULAR VOLUME 98.8 fl (80.0-96.0); PLATELET COUNT, AUTOMATED 271 10^3/uL (150-450); RED BLOOD COUNT 3.38 10^6/uL (4.30-6.10); WHITE BLOOD COUNT 10.4 10^3/uL (4.0-10.0)
[2018-12-13 10:27] LABS: INR 2.07; PROTHROMBIN TIME 23.1 SECONDS (11.8-14.0)
[2018-12-13 10:36] LABS: C REACTIVE PROTEIN QUANTITATIV 2.94 MG/DL (0.00-0.30); CALCIUM LEVEL 8.7 MG/DL (8.8-10.2); CREATININE FOR GFR 4.42 MG/DL (0.70-1.30); ERYTHROCYTE SEDIMENTATION RATE 86 mm/hr (0-20); GLOMERULAR FILTRATION RATE 14.2 (>49); POTASSIUM SERUM 4.6 MEQ/L (3.5-5.1)
== END ==
PROVIDERS: ATTEND Internal Medicine
DX: M46.40 Discitis, unspecified, site unspecified (principal)

== ENCOUNTER → 2018-12-20 | Outpatient (REF) ==
[2018-12-20 09:00] LABS: BASO # 0.1 10^3/uL (0.0-0.2); BASO % 1.1 % (0.0-1.0); EOS # 0.8 10^3/uL (0.0-0.5); EOS % 7.7 % (0.0-3.0); HEMATOCRIT 35.7 % (42.0-52.0); LYMPH # 1.5 10^3/uL (1.5-5.0); MEAN CORPUSCULAR HGB CONC 30.8 g/dl (32.0-36.5); MEAN CORPUSCULAR VOLUME 100.6 fl (80.0-96.0); NEUTROPHILS # 7.3 10^3/uL (1.5-8.5); PLATELET COUNT, AUTOMATED 250 10^3/uL (150-450); RED BLOOD COUNT 3.55 10^6/uL (4.30-6.10); WHITE BLOOD COUNT 10.9 10^3/uL (4.0-10.0)
[2018-12-20 09:08] LABS: INR 1.74; PROTHROMBIN TIME 20.1 SECONDS (11.8-14.0)
[2018-12-20 09:35] LABS: ERYTHROCYTE SEDIMENTATION RATE 83 mm/hr (0-20)
== END ==
PROVIDERS: ATTEND Internal Medicine
DX: I48.91 Unspecified atrial fibrillation (principal)

== ENCOUNTER → 2018-12-20 | Outpatient (CLI) | payer MEDICARE, MEDICAID ==
--- NOTE | 2018-12-20 14:01 | REP ---
MRI lumbar spine without contrast: History: Discitis. The patient reports progressive low back pain. Comparison MRI lumbar spine studies are from November 11, 2018. Technique: Sagittal and axial T1 and T2-weighted scans are acquired in the usual fashion with and without fat saturation. Sequences include spin echo, turbo spin-echo, and STIR imaging sequences. MRI findings: There is evidence of progression in the abnormality previously noted at the L3-4 disc. There is now extensive low T1 and mixed signal intensity abnormality throughout the L4 and most of the L3 vertebral body. There is extensive T2 hyperintense signal within the L3-4 disc space. There is extensive extra vertebral and prevertebral soft tissue edema on the left side of midline and in the left psoas muscle region adjacent to the spine consistent with paraspinal inflammation. There is evidence of mixed signal intensity material extruding from the disc and extending cephalad along the left ventral margin of the spinal canal compressing the thecal sac. This cephalad epidural process measures 16 mm craniocaudal by 11 mm anteroposterior by 13 mm right to left. This is much more prominent than on the prior study. These changes are compatible with acute discitis at the L3-4 disc level. The STIR images demonstrate some T2 hyperintense edema along the right lateral paravertebral region tissues as well. Degenerative disc changes are again noted at L2-3, L4-5, and L5-S1. There is facet hypertrophy bilaterally at L5-S1 and to a lesser extent L4-5. These findings are unchanged. Impression: Progressive marrow signal intensity abnormalities, increased signal within the disc space, and findings suggestive of developing left ventral epidural abscess at the L3-4 disc level. There is progressive paravertebral soft tissue inflammation. Electronically Signed by Sanjay Da Silva MD 12/20/2018 04:03 P
== END ==
LOC: M RAD 08:44
PROVIDERS: ATTEND Physician Assistant
DX: M46.46 Discitis, unspecified, lumbar region (principal)

== ENCOUNTER → 2018-12-22 | Outpatient (REF) ==
[~2018-12-22] MED LIST changes: +SENN-53 PO; -SENN1TAB40 PO; -SIMV10TA2 PO; +SIMV10TA21 PO; -SIMV20TA2; -SIMV20TA2 PO; +SIMV20TA22; +SIMV20TA22 PO
[2018-12-22 12:02] LABS: INR 1.89; PROTHROMBIN TIME 21.5 SECONDS (11.8-14.0)
== END ==
PROVIDERS: ATTEND Internal Medicine
DX: I48.91 Unspecified atrial fibrillation (principal)

== ENCOUNTER → 2019-01-03 | Outpatient (REF) ==
[~2019-01-03] MED LIST changes: -SENN-53 PO; +SENN1TAB40 PO; +SIMV10TA2 PO; -SIMV10TA21 PO; +SIMV20TA2; +SIMV20TA2 PO; -SIMV20TA22; -SIMV20TA22 PO
[2019-01-03 09:21] LABS: INR 1.42; PROTHROMBIN TIME 17.1 SECONDS (11.8-14.0)
== END ==
PROVIDERS: ATTEND Internal Medicine
DX: N18.6 End stage renal disease (principal)

== ENCOUNTER → 2019-01-05 | Outpatient (REF) ==
[2019-01-05 12:04] LABS: INR 1.79; PROTHROMBIN TIME 20.6 SECONDS (11.8-14.0)
== END ==
PROVIDERS: ATTEND Internal Medicine
DX: I48.91 Unspecified atrial fibrillation (principal)

== ENCOUNTER → 2019-01-08 | Outpatient (REF) ==
[~2019-01-08] MED LIST changes: +SENN-53 PO; -SENN1TAB40 PO
[2019-01-08 14:54] LABS: INR 1.82; PROTHROMBIN TIME 20.9 SECONDS (11.8-14.0)
== END ==
PROVIDERS: ATTEND Internal Medicine
DX: I48.91 Unspecified atrial fibrillation (principal)

== ENCOUNTER → 2019-01-10 | Outpatient (REF) ==
[2019-01-10 13:04] LABS: INR 1.86; PROTHROMBIN TIME 21.2 SECONDS (11.8-14.0)
[2019-01-10 13:13] LABS: BASO # 0.1 10^3/uL (0.0-0.2); BASO % 0.9 % (0.0-1.0); EOS # 0.8 10^3/uL (0.0-0.5); EOS % 7.7 % (0.0-3.0); HEMATOCRIT 31.3 % (42.0-52.0); HEMOGLOBIN 9.9 g/dl (13.5-17.5); LYMPH # 1.6 10^3/uL (1.5-5.0); LYMPH % 16.6 % (24.0-44.0); MEAN CORPUSCULAR HEMOGLOBIN 32.1 pg (27.0-33.0); MEAN CORPUSCULAR HGB CONC 31.6 g/dl (32.0-36.5); MEAN CORPUSCULAR VOLUME 101.6 fl (80.0-96.0); MONO % 10.6 % (0.0-5.0); NEUTROPHILS # 6.2 10^3/uL (1.5-8.5); NEUTROPHILS % 63.4 % (36.0-66.0); PLATELET COUNT, AUTOMATED 195 10^3/uL (150-450); RED BLOOD COUNT 3.08 10^6/uL (4.30-6.10); WHITE BLOOD COUNT 9.8 10^3/uL (4.0-10.0)
[2019-01-10 13:48] LABS: ERYTHROCYTE SEDIMENTATION RATE 70 mm/hr (0-20)
[2019-01-10 13:50] LABS: C REACTIVE PROTEIN QUANTITATIV 1.29 MG/DL (0.00-0.30); CALCIUM LEVEL 8.1 MG/DL (8.8-10.2); CREATININE FOR GFR 4.1 MG/DL (0.70-1.30); GLOMERULAR FILTRATION RATE 15.5 (>49); POTASSIUM SERUM 4.2 MEQ/L (3.5-5.1)
== END ==
PROVIDERS: ATTEND Internal Medicine
DX: N18.9 Chronic kidney disease, unspecified (principal); D63.1 Anemia in chronic kidney disease

== ENCOUNTER → 2019-01-12 | Outpatient (CLI) | payer MEDICARE, MEDICAID ==
--- NOTE | 2019-01-12 20:43 | REP ---
BILATERAL UPPER EXTREMITY DUPLEX DOPPLER VENOUS AND ARTERIAL ULTRASOUND FOR AV FISTULA MAPPING: Real-time ultrasound evaluation and duplex Doppler interrogation of bilateral upper extremity venous and arterial systems is performed. There is no evidence for deep vein thrombosis in the bilateral upper extremities. On the right, the basilic vein measures 7 mm at the upper humerus, 4 mm at the lower humerus, 3 mm in the upper forearm and 2 mm in the lower forearm and wrist. Median cubital vein measures 7 mm. Cephalic vein measures 5 mm at the upper humerus, 7 mm at the lower humerus and 2 mm throughout the forearm and wrist. Triphasic waveforms are seen throughout the right upper extremity arterial structures except that the distal ulnar artery appears occluded with diffuse significant plaquing throughout the right ulnar artery. Right axillary artery measures 7 mm, brachial artery 6 mm, radial artery 3 mm and proximal ulnar artery 4 mm. On the left, the basilic vein measures 6 mm at the upper humerus, 4 mm at the lower humerus and in the upper forearm and 2 mm in the lower forearm and wrist. Median cubital vein measures 5 mm. Cephalic vein measures 3 mm at the level of the upper and lower humerus, 2 mm in the upper forearm and 3 mm in the lower forearm and wrist. Left upper extremity arterial structures demonstrate triphasic waveforms except that the distal left ulnar artery demonstrates slow flow with diffuse plaquing and monophasic waveform at the wrist. Velocity at the wrist in the left ulnar artery is 12.8 cm/s. Flow velocities proximally throughout the remaining left upper extremity arterial structures are essentially within normal range. Left axillary artery measures 5 mm, brachial artery 6 mm, radial artery 3 mm proximally and 2 mm distally and ulnar artery 6 mm proximally and 1 mm distally. Electronically Signed by Prabhu Aguilar MD 01/13/2019 03:34 P
== END ==
LOC: M RAD 08:43
PROVIDERS: ATTEND Surgery Vascular Surgery
DX: Z01.818 Encounter for other preprocedural examination (principal); N18.6 End stage renal disease

== ENCOUNTER → 2019-01-17 | Outpatient (REF) ==
[2019-01-17 12:42] LABS: BASO # 0.1 10^3/uL (0.0-0.2); BASO % 0.9 % (0.0-1.0); EOS # 0.6 10^3/uL (0.0-0.5); EOS % 6.3 % (0.0-3.0); HEMATOCRIT 30.9 % (42.0-52.0); HEMOGLOBIN 9.6 g/dl (13.5-17.5); LYMPH # 1.4 10^3/uL (1.5-5.0); LYMPH % 16.1 % (24.0-44.0); MEAN CORPUSCULAR HEMOGLOBIN 31.5 pg (27.0-33.0); MEAN CORPUSCULAR HGB CONC 31.1 g/dl (32.0-36.5); MEAN CORPUSCULAR VOLUME 101.3 fl (80.0-96.0); MONO # 0.9 10^3/uL (0.0-0.8); MONO % 10.5 % (0.0-5.0); NEUTROPHILS # 5.7 10^3/uL (1.5-8.5); NEUTROPHILS % 64.7 % (36.0-66.0); PLATELET COUNT, AUTOMATED 175 10^3/uL (150-450); RED BLOOD COUNT 3.05 10^6/uL (4.30-6.10); WHITE BLOOD COUNT 8.8 10^3/uL (4.0-10.0)
[2019-01-17 13:05] LABS: C REACTIVE PROTEIN QUANTITATIV 1.34 MG/DL (0.00-0.30); CALCIUM LEVEL 8.3 MG/DL (8.8-10.2); CREATININE FOR GFR 3.97 MG/DL (0.70-1.30); GLOMERULAR FILTRATION RATE 16.1 (>49); POTASSIUM SERUM 4.5 MEQ/L (3.5-5.1)
[2019-01-17 13:19] LABS: ERYTHROCYTE SEDIMENTATION RATE 64 mm/hr (0-20)
[2019-01-17 13:44] LABS: INR 1.87; PROTHROMBIN TIME 21.3 SECONDS (11.8-14.0)
== END ==
PROVIDERS: ATTEND Internal Medicine
DX: N18.9 Chronic kidney disease, unspecified (principal)

== ENCOUNTER → 2019-01-24 | Outpatient (REF) ==
[2019-01-24 10:08] LABS: BASO # 0.1 10^3/uL (0.0-0.2); BASO % 0.8 % (0.0-1.0); EOS # 0.7 10^3/uL (0.0-0.5); EOS % 8.4 % (0.0-3.0); HEMATOCRIT 33.1 % (42.0-52.0); HEMOGLOBIN 10.1 g/dl (13.5-17.5); LYMPH # 1.4 10^3/uL (1.5-5.0); LYMPH % 16.3 % (24.0-44.0); MEAN CORPUSCULAR HEMOGLOBIN 31.4 pg (27.0-33.0); MEAN CORPUSCULAR HGB CONC 30.5 g/dl (32.0-36.5); MEAN CORPUSCULAR VOLUME 102.8 fl (80.0-96.0); MONO # 1.2 10^3/uL (0.0-0.8); MONO % 13.4 % (0.0-5.0); NEUTROPHILS # 5.2 10^3/uL (1.5-8.5); NEUTROPHILS % 60.1 % (36.0-66.0); PLATELET COUNT, AUTOMATED 169 10^3/uL (150-450); RED BLOOD COUNT 3.22 10^6/uL (4.30-6.10); WHITE BLOOD COUNT 8.6 10^3/uL (4.0-10.0)
[2019-01-24 10:25] LABS: C REACTIVE PROTEIN QUANTITATIV 2.65 MG/DL (0.00-0.30); CALCIUM LEVEL 8.7 MG/DL (8.8-10.2); CREATININE FOR GFR 3.85 MG/DL (0.70-1.30); GLOMERULAR FILTRATION RATE 16.7 (>49); POTASSIUM SERUM 4.9 MEQ/L (3.5-5.1)
[2019-01-24 11:04] LABS: ERYTHROCYTE SEDIMENTATION RATE 65 mm/hr (0-20)
== END ==
PROVIDERS: ATTEND Internal Medicine
DX: N18.9 Chronic kidney disease, unspecified (principal); D63.1 Anemia in chronic kidney disease

== ENCOUNTER → 2019-01-31 | Outpatient (REF) ==
[2019-01-31 07:08] LABS: BASO # 0.1 10^3/uL (0.0-0.2); BASO % 1.1 % (0.0-1.0); EOS # 0.6 10^3/uL (0.0-0.5); EOS % 8.8 % (0.0-3.0); HEMATOCRIT 31.5 % (42.0-52.0); HEMOGLOBIN 9.8 g/dl (13.5-17.5); LYMPH % 14.2 % (24.0-44.0); MEAN CORPUSCULAR HEMOGLOBIN 32.2 pg (27.0-33.0); MEAN CORPUSCULAR HGB CONC 31.1 g/dl (32.0-36.5); MEAN CORPUSCULAR VOLUME 103.6 fl (80.0-96.0); MONO % 14.2 % (0.0-5.0); NEUTROPHILS # 4.2 10^3/uL (1.5-8.5); NEUTROPHILS % 60.3 % (36.0-66.0); PLATELET COUNT, AUTOMATED 170 10^3/uL (150-450); RED BLOOD COUNT 3.04 10^6/uL (4.30-6.10)
[2019-01-31 07:32] LABS: ERYTHROCYTE SEDIMENTATION RATE 77 mm/hr (0-20)
[2019-01-31 07:35] LABS: C REACTIVE PROTEIN QUANTITATIV 3.5 MG/DL (0.00-0.30); CALCIUM LEVEL 8.2 MG/DL (8.8-10.2); CREATININE FOR GFR 3.75 MG/DL (0.70-1.30); GLOMERULAR FILTRATION RATE 17.2 (>49); POTASSIUM SERUM 4.5 MEQ/L (3.5-5.1)
== END ==
PROVIDERS: ATTEND Internal Medicine
DX: N18.9 Chronic kidney disease, unspecified (principal); D63.1 Anemia in chronic kidney disease

== ENCOUNTER → 2019-02-07 | Outpatient (REF) ==
[2019-02-07 14:17] LABS: BASO # 0.1 10^3/uL (0.0-0.2); BASO % 0.8 % (0.0-1.0); EOS # 0.7 10^3/uL (0.0-0.5); EOS % 8.1 % (0.0-3.0); HEMATOCRIT 32.1 % (42.0-52.0); HEMOGLOBIN 9.8 g/dl (13.5-17.5); LYMPH # 1.3 10^3/uL (1.5-5.0); LYMPH % 15.8 % (24.0-44.0); MEAN CORPUSCULAR HEMOGLOBIN 32.1 pg (27.0-33.0); MEAN CORPUSCULAR HGB CONC 30.5 g/dl (32.0-36.5); MEAN CORPUSCULAR VOLUME 105.2 fl (80.0-96.0); MONO # 1.1 10^3/uL (0.0-0.8); NEUTROPHILS % 60.7 % (36.0-66.0); PLATELET COUNT, AUTOMATED 189 10^3/uL (150-450); RED BLOOD COUNT 3.05 10^6/uL (4.30-6.10); WHITE BLOOD COUNT 8.3 10^3/uL (4.0-10.0)
[2019-02-07 14:21] LABS: C REACTIVE PROTEIN QUANTITATIV 2.45 MG/DL (0.00-0.30); CALCIUM LEVEL 8.8 MG/DL (8.8-10.2); CREATININE FOR GFR 3.75 MG/DL (0.70-1.30); GLOMERULAR FILTRATION RATE 17.2 (>49); POTASSIUM SERUM 4.9 MEQ/L (3.5-5.1)
[2019-02-07 14:38] LABS: ERYTHROCYTE SEDIMENTATION RATE 70 mm/hr (0-20)
== END ==
PROVIDERS: ATTEND Internal Medicine
DX: N18.9 Chronic kidney disease, unspecified (principal)

== ENCOUNTER → 2019-02-21 | Outpatient (REF) ==
[~2019-02-21] MED LIST changes: -SIMV10TA2 PO; +SIMV10TA21 PO; -SIMV20TA2; -SIMV20TA2 PO; +SIMV20TA22; +SIMV20TA22 PO
[2019-02-21 12:47] LABS: BASO # 0.1 10^3/uL (0.0-0.2); BASO % 1.3 % (0.0-1.0); EOS # 0.6 10^3/uL (0.0-0.5); EOS % 7.5 % (0.0-3.0); HEMATOCRIT 30.7 % (42.0-52.0); HEMOGLOBIN 9.6 g/dl (13.5-17.5); LYMPH # 1.3 10^3/uL (1.5-5.0); LYMPH % 16.1 % (24.0-44.0); MEAN CORPUSCULAR HEMOGLOBIN 32.9 pg (27.0-33.0); MEAN CORPUSCULAR HGB CONC 31.3 g/dl (32.0-36.5); MEAN CORPUSCULAR VOLUME 105.1 fl (80.0-96.0); MONO # 1.1 10^3/uL (0.0-0.8); MONO % 13.8 % (0.0-5.0); NEUTROPHILS # 4.9 10^3/uL (1.5-8.5); NEUTROPHILS % 59.5 % (36.0-66.0); PLATELET COUNT, AUTOMATED 160 10^3/uL (150-450); RED BLOOD COUNT 2.92 10^6/uL (4.30-6.10); WHITE BLOOD COUNT 8.2 10^3/uL (4.0-10.0)
[2019-02-21 13:12] LABS: ERYTHROCYTE SEDIMENTATION RATE 65 mm/hr (0-20)
[2019-02-21 13:16] LABS: C REACTIVE PROTEIN QUANTITATIV 1.08 MG/DL (0.00-0.30); CALCIUM LEVEL 9.3 MG/DL (8.8-10.2); CREATININE FOR GFR 4.3 MG/DL (0.70-1.30); GLOMERULAR FILTRATION RATE 14.7 (>49); POTASSIUM SERUM 5.1 MEQ/L (3.5-5.1)
== END ==
PROVIDERS: ATTEND Internal Medicine
DX: M46.49 Discitis, unspecified, multiple sites in spine (principal)

== ENCOUNTER → 2019-02-28 | Outpatient (REF) ==
[2019-02-28 10:16] LABS: C REACTIVE PROTEIN QUANTITATIV 1.08 MG/DL (0.00-0.30); CALCIUM LEVEL 9.3 MG/DL (8.8-10.2); CREATININE FOR GFR 4.3 MG/DL (0.70-1.30); GLOMERULAR FILTRATION RATE 14.7 (>49); POTASSIUM SERUM 5.1 MEQ/L (3.5-5.1)
== END ==
PROVIDERS: ATTEND Internal Medicine
DX: M46.40 Discitis, unspecified, site unspecified (principal)

== ENCOUNTER → 2019-03-07 | Outpatient (REF) ==
[2019-03-07 11:23] LABS: BASO # 0.1 10^3/uL (0.0-0.2); EOS # 0.5 10^3/uL (0.0-0.5); EOS % 5.8 % (0.0-3.0); HEMATOCRIT 33.8 % (42.0-52.0); HEMOGLOBIN 10.2 g/dl (13.5-17.5); LYMPH # 1.4 10^3/uL (1.5-5.0); LYMPH % 16.1 % (24.0-44.0); MEAN CORPUSCULAR HEMOGLOBIN 32.5 pg (27.0-33.0); MEAN CORPUSCULAR HGB CONC 30.2 g/dl (32.0-36.5); MEAN CORPUSCULAR VOLUME 107.6 fl (80.0-96.0); MONO # 1.1 10^3/uL (0.0-0.8); MONO % 12.5 % (0.0-5.0); NEUTROPHILS # 5.7 10^3/uL (1.5-8.5); NEUTROPHILS % 63.8 % (36.0-66.0); PLATELET COUNT, AUTOMATED 187 10^3/uL (150-450); RED BLOOD COUNT 3.14 10^6/uL (4.30-6.10)
[2019-03-07 11:43] LABS: ERYTHROCYTE SEDIMENTATION RATE 58 mm/hr (0-20)
[2019-03-07 12:07] LABS: C REACTIVE PROTEIN QUANTITATIV 0.94 MG/DL (0.00-0.30); CALCIUM LEVEL 9.4 MG/DL (8.8-10.2); CREATININE FOR GFR 4.88 MG/DL (0.70-1.30); GLOMERULAR FILTRATION RATE 12.7 (>49); POTASSIUM SERUM 5.2 MEQ/L (3.5-5.1)
== END ==
PROVIDERS: ATTEND Internal Medicine
DX: N18.6 End stage renal disease (principal)

== ENCOUNTER → 2019-03-19 | Outpatient (REF) ==
[2019-03-19 11:47] LABS: BASO # 0.1 10^3/uL (0.0-0.2); BASO % 0.8 % (0.0-1.0); EOS # 0.6 10^3/uL (0.0-0.5); EOS % 5.9 % (0.0-3.0); HEMATOCRIT 30.1 % (42.0-52.0); HEMOGLOBIN 9.5 g/dl (13.5-17.5); LYMPH # 1.6 10^3/uL (1.5-5.0); LYMPH % 14.9 % (24.0-44.0); MEAN CORPUSCULAR HEMOGLOBIN 33.2 pg (27.0-33.0); MEAN CORPUSCULAR HGB CONC 31.6 g/dl (32.0-36.5); MEAN CORPUSCULAR VOLUME 105.2 fl (80.0-96.0); MONO # 1.1 10^3/uL (0.0-0.8); MONO % 10.7 % (0.0-5.0); NEUTROPHILS # 7.2 10^3/uL (1.5-8.5); NEUTROPHILS % 66.9 % (36.0-66.0); PLATELET COUNT, AUTOMATED 170 10^3/uL (150-450); RED BLOOD COUNT 2.86 10^6/uL (4.30-6.10); WHITE BLOOD COUNT 10.7 10^3/uL (4.0-10.0)
[2019-03-19 12:19] LABS: C REACTIVE PROTEIN QUANTITATIV 1.28 MG/DL (0.00-0.30); CALCIUM LEVEL 9.4 MG/DL (8.8-10.2); CREATININE FOR GFR 5.19 MG/DL (0.70-1.30); GLOMERULAR FILTRATION RATE 11.8 (>49); POTASSIUM SERUM 5.6 MEQ/L (3.5-5.1)
[2019-03-19 12:55] LABS: ERYTHROCYTE SEDIMENTATION RATE 65 mm/hr (0-20)
== END ==
PROVIDERS: ATTEND Internal Medicine
DX: M46.40 Discitis, unspecified, site unspecified (principal)

== ENCOUNTER → 2019-03-30 | Outpatient (REF) ==
--- NOTE | 2019-03-30 14:40 | REP ---
LUMBOSACRAL SPINE SERIES: Five views of the lumbosacral spine performed. There is no compression fracture. There is normal lumbar lordosis. There is no spondylolysis or spondylolisthesis. There is mild diffuse spurring with a bridging osteophyte on the left at the L3-4 level. There is mild disc space narrowing with subchondral sclerosis and vacuum phenomenon at L2-3. There is moderate narrowing with subchondral sclerosis and vacuum at L3-4. There is mild narrowing at L4-5, L5-S1 disc spaces with subchondral sclerosis. There are diffuse sclerosis and spurring at the posterior facet joints, most significantly at L4-5 and L5-S1. Posterior elements are intact. There is mild curvature toward the right. IMPRESSION: Degenerative changes as above without fracture or dislocation. The appearance is similar to the prior study of 11/03/2018. Electronically Signed by Prabhu Aguilar MD 03/31/2019 03:23 P
== END ==
LOC: M RAD 13:13
PROVIDERS: ATTEND Internal Medicine
DX: G06.2 Extradural and subdural abscess, unspecified (principal)

== ENCOUNTER → 2019-04-20 | Outpatient (REF) ==
[2019-04-20 09:57] LABS: HEMATOCRIT 29.2 % (42.0-52.0); MEAN CORPUSCULAR HEMOGLOBIN 33.2 pg (27.0-33.0); MEAN CORPUSCULAR HGB CONC 30.8 g/dl (32.0-36.5); MEAN CORPUSCULAR VOLUME 107.7 fl (80.0-96.0); PLATELET COUNT, AUTOMATED 180 10^3/uL (150-450); RED BLOOD COUNT 2.71 10^6/uL (4.30-6.10); WHITE BLOOD COUNT 9.9 10^3/uL (4.0-10.0)
[2019-04-20 10:19] LABS: C REACTIVE PROTEIN QUANTITATIV 1.82 MG/DL (0.00-0.30); CALCIUM LEVEL 8.9 MG/DL (8.8-10.2); CREATININE FOR GFR 4.16 MG/DL (0.70-1.30); GLOMERULAR FILTRATION RATE 15.3 (>49); POTASSIUM SERUM 4.5 MEQ/L (3.5-5.1)
[2019-04-20 10:53] LABS: ERYTHROCYTE SEDIMENTATION RATE 66 mm/hr (0-20)
== END ==
PROVIDERS: ATTEND Internal Medicine
DX: M46.46 Discitis, unspecified, lumbar region (principal)

== ENCOUNTER → 2019-04-30 | Outpatient (REF) | PROVIDERS: ATTEND Physician Assistant | DX: R05 Cough (principal) ==

== ENCOUNTER → 2019-05-02 | Outpatient (REF) ==
[2019-05-02 11:15] LABS: HEMATOCRIT 26.7 % (42.0-52.0); HEMOGLOBIN 8.4 g/dl (13.5-17.5); MEAN CORPUSCULAR HEMOGLOBIN 34.3 pg (27.0-33.0); MEAN CORPUSCULAR HGB CONC 31.5 g/dl (32.0-36.5); PLATELET COUNT, AUTOMATED 133 10^3/uL (150-450); RED BLOOD COUNT 2.45 10^6/uL (4.30-6.10)
--- NOTE | 2019-05-02 16:01 | REPPI ---
Clinical: Hypoxia. Comparison: 11/03/2018. Findings: Examination is markedly limited due to underpenetration and poor inspiratory effort. Cardiomegaly and pulmonary vascular congestion along with left lower lobe opacity cannot be excluded. A double-lumen central venous catheter extends into the right atrium via a left jugular approach. No pneumothorax. Impression: Severely limited examination suggesting cardiomegaly and pulmonary edema. Correlation is required. Electronically Signed by Fredy Unger MD 05/02/2019 03:52 P
== END ==
PROVIDERS: ATTEND Internal Medicine
DX: J06.9 Acute upper respiratory infection, unspecified (principal)

== ENCOUNTER → 2019-05-16 | Outpatient (REF) ==
[2019-05-16 09:49] LABS: HEMATOCRIT 29.3 % (42.0-52.0); HEMOGLOBIN 9.5 g/dl (13.5-17.5); MEAN CORPUSCULAR HEMOGLOBIN 34.8 pg (27.0-33.0); MEAN CORPUSCULAR HGB CONC 32.4 g/dl (32.0-36.5); MEAN CORPUSCULAR VOLUME 107.3 fl (80.0-96.0); PLATELET COUNT, AUTOMATED 181 10^3/uL (150-450); RED BLOOD COUNT 2.73 10^6/uL (4.30-6.10); WHITE BLOOD COUNT 9.5 10^3/uL (4.0-10.0)
[2019-05-16 10:20] LABS: ERYTHROCYTE SEDIMENTATION RATE 65 mm/hr (0-20)
[2019-05-16 10:53] LABS: BLOOD UREA NITROGEN 37 MG/DL (7-18); CALCIUM LEVEL 8.9 MG/DL (8.8-10.2); CARBON DIOXIDE LEVEL 21 MEQ/L (21-32); CHLORIDE LEVEL 105 MEQ/L (98-107); CK-MB VALUE MASS 1.6 NG/ML (<3.6); CPK CREATINE PHOSPHOKINASE 68 U/L (39-308); CREATININE FOR GFR 4.62 MG/DL (0.70-1.30); GLOMERULAR FILTRATION RATE 13.5 (>49); GLUCOSE, FASTING 156 MG/DL (70-100); MB/CK RELATIVE INDEX 2.35 (< OR =4); POTASSIUM SERUM 4.7 MEQ/L (3.5-5.1); SODIUM LEVEL 137 MEQ/L (136-145); TROPONIN I < 0.02 NG/ML (< 0.10)
== END ==
PROVIDERS: ATTEND Internal Medicine
DX: N18.6 End stage renal disease (principal)

== ENCOUNTER → 2019-06-13 | Outpatient (REF) ==
[2019-06-13 09:52] LABS: HEMATOCRIT 32.3 % (42.0-52.0); HEMOGLOBIN 10.2 g/dl (13.5-17.5); MEAN CORPUSCULAR HEMOGLOBIN 34.5 pg (27.0-33.0); MEAN CORPUSCULAR HGB CONC 31.6 g/dl (32.0-36.5); MEAN CORPUSCULAR VOLUME 109.1 fl (80.0-96.0); PLATELET COUNT, AUTOMATED 196 10^3/uL (150-450); RED BLOOD COUNT 2.96 10^6/uL (4.30-6.10); WHITE BLOOD COUNT 8.5 10^3/uL (4.0-10.0)
[2019-06-13 10:16] LABS: C REACTIVE PROTEIN QUANTITATIV 2.93 MG/DL (0.00-0.30); CALCIUM LEVEL 9.5 MG/DL (8.8-10.2); CREATININE FOR GFR 5.33 MG/DL (0.70-1.30); GLOMERULAR FILTRATION RATE 11.5 (>49); POTASSIUM SERUM 4.9 MEQ/L (3.5-5.1)
[2019-06-13 10:19] LABS: ERYTHROCYTE SEDIMENTATION RATE 70 mm/hr (0-20)
== END ==
PROVIDERS: ATTEND Internal Medicine
DX: N18.6 End stage renal disease (principal)

== ENCOUNTER → 2019-07-16 | Outpatient (REF) ==
[~2019-07-16] MED LIST changes: +VITA-243 PO; -VITA500T PO
[2019-07-16 11:43] LABS: HEMATOCRIT 31.5 % (42.0-52.0); HEMOGLOBIN 9.9 g/dl (13.5-17.5); MEAN CORPUSCULAR HEMOGLOBIN 34.5 pg (27.0-33.0); MEAN CORPUSCULAR HGB CONC 31.4 g/dl (32.0-36.5); MEAN CORPUSCULAR VOLUME 109.8 fl (80.0-96.0); PLATELET COUNT, AUTOMATED 158 10^3/uL (150-450); RED BLOOD COUNT 2.87 10^6/uL (4.30-6.10); WHITE BLOOD COUNT 9.5 10^3/uL (4.0-10.0)
[2019-07-16 12:04] LABS: ERYTHROCYTE SEDIMENTATION RATE 49 mm/hr (0-20)
== END ==
PROVIDERS: ATTEND Internal Medicine
DX: M46.40 Discitis, unspecified, site unspecified (principal)

== ENCOUNTER → 2019-08-06 | Outpatient (REF) | PROVIDERS: ATTEND Internal Medicine | DX: Z03.818 Encounter for observation for suspected exposure to other biological agents ruled out (principal) ==

== ENCOUNTER → 2019-08-14 | Outpatient (REF) | PROVIDERS: ATTEND Internal Medicine | DX: M46.40 Discitis, unspecified, site unspecified (principal) ==

== ENCOUNTER → 2019-09-12 | Outpatient (REF) ==
[~2019-09-12] MED LIST changes: -AMLO10TA5 PO; +AMLO1TAB24 PO; +AMLO1TAB25 PO; -AMLO5TAB6 PO; +ASPI-546 PO; -ASPI1TAB15 PO; -CLOT1CRE2 TOP; +CLOT1CRE56 TOP; -COUM1TAB14 PO; +COUM4TAB8 PO; -COUM6TAB PO; +COUM6TAB10 PO; -COUM7.5T PO; +COUM7.5T6 PO; -DOK100TA; +DOK100TA2; -QUET1TAB7 PO; +QUET25TA3 PO; -STOO1CAP9 PO; +STOO240C PO
[2019-09-12 11:26] LABS: HEMATOCRIT 37.1 % (42.0-52.0); HEMOGLOBIN 11.5 g/dl (13.5-17.5); MEAN CORPUSCULAR HEMOGLOBIN 32.5 pg (27.0-33.0); MEAN CORPUSCULAR VOLUME 104.8 fl (80.0-96.0); PLATELET COUNT, AUTOMATED 184 10^3/uL (150-450); RED BLOOD COUNT 3.54 10^6/uL (4.30-6.10); WHITE BLOOD COUNT 9.7 10^3/uL (4.0-10.0)
[2019-09-12 12:00] LABS: C REACTIVE PROTEIN QUANTITATIV 4.36 MG/DL (0.00-0.30); CALCIUM LEVEL 9.1 MG/DL (8.8-10.2); CREATININE FOR GFR 4.89 MG/DL (0.70-1.30); GLOMERULAR FILTRATION RATE 12.6 (>49); POTASSIUM SERUM 4.4 MEQ/L (3.5-5.1)
[2019-09-12 12:02] LABS: ERYTHROCYTE SEDIMENTATION RATE 56 mm/hr (0-20)
== END ==
PROVIDERS: ATTEND Internal Medicine
DX: N18.9 Chronic kidney disease, unspecified (principal)

== ENCOUNTER → 2019-10-02 | Outpatient (REF) ==
[~2019-10-02] MED LIST changes: +AMLO10TA5 PO; -AMLO1TAB24 PO; -AMLO1TAB25 PO; +AMLO5TAB6 PO; -ASPI-546 PO; +ASPI1TAB15 PO; +DOK100TA; -DOK100TA2; +QUET1TAB7 PO; -QUET25TA3 PO; +STOO1CAP9 PO; -STOO240C PO
[2019-10-02 11:07] LABS: BASO # 0.1 10^3/uL (0.0-0.2); BASO % 0.7 % (0.0-1.0); EOS # 0.3 10^3/uL (0.0-0.5); HEMATOCRIT 32.1 % (42.0-52.0); HEMOGLOBIN 9.9 g/dl (13.5-17.5); LYMPH # 1.1 10^3/uL (1.5-5.0); LYMPH % 15.8 % (24.0-44.0); MEAN CORPUSCULAR HEMOGLOBIN 32.6 pg (27.0-33.0); MEAN CORPUSCULAR HGB CONC 30.8 g/dl (32.0-36.5); MEAN CORPUSCULAR VOLUME 105.6 fl (80.0-96.0); MONO # 0.6 10^3/uL (0.0-0.8); MONO % 8.9 % (0.0-5.0); NEUTROPHILS # 4.7 10^3/uL (1.5-8.5); NEUTROPHILS % 69.2 % (36.0-66.0); PLATELET COUNT, AUTOMATED 147 10^3/uL (150-450); RED BLOOD COUNT 3.04 10^6/uL (4.30-6.10); WHITE BLOOD COUNT 6.8 10^3/uL (4.0-10.0)
[2019-10-02 11:27] LABS: ERYTHROCYTE SEDIMENTATION RATE 52 mm/hr (0-20)
== END ==
PROVIDERS: ATTEND Internal Medicine
DX: M46.40 Discitis, unspecified, site unspecified (principal)

== ENCOUNTER → 2019-10-17 | Outpatient (REF) | payer MEDICARE, MEDICAID ==
[~2019-10-17] MED LIST changes: -AMLO10TA5 PO; +AMLO1TAB24 PO; +AMLO1TAB25 PO; -AMLO5TAB6 PO; +ASPI-546 PO; -ASPI1TAB15 PO
[2019-11-30 10:29] LABS: BASO # 0.1 10^3/uL (0.0-0.2); EOS # 0.4 10^3/uL (0.0-0.5); HEMATOCRIT 35.3 % (42.0-52.0); HEMOGLOBIN 10.8 g/dl (13.5-17.5); LYMPH # 1.3 10^3/uL (1.5-5.0); MEAN CORPUSCULAR HEMOGLOBIN 32.3 pg (27.0-33.0); MEAN CORPUSCULAR HGB CONC 30.6 g/dl (32.0-36.5); MEAN CORPUSCULAR VOLUME 105.7 fl (80.0-96.0); MONO # 0.9 10^3/uL (0.0-0.8); MONO % 11.7 % (0.0-5.0); NEUTROPHILS # 4.6 10^3/uL (1.5-8.5); NEUTROPHILS % 63.5 % (36.0-66.0); PLATELET COUNT, AUTOMATED 150 10^3/uL (150-450); RED BLOOD COUNT 3.34 10^6/uL (4.30-6.10); WHITE BLOOD COUNT 7.2 10^3/uL (4.0-10.0)
[2019-11-30 10:31] LABS: ERYTHROCYTE SEDIMENTATION RATE 49 mm/hr (0-20)
== END ==
PROVIDERS: ATTEND Internal Medicine
DX: M46.40 Discitis, unspecified, site unspecified (principal)

== ENCOUNTER → 2019-12-07 | Outpatient (REF) | payer MEDICARE, MEDICAID ==
[2019-12-07 11:03] LABS: HEMATOCRIT 34.9 % (42.0-52.0); HEMOGLOBIN 10.7 g/dl (13.5-17.5); MEAN CORPUSCULAR HEMOGLOBIN 32.6 pg (27.0-33.0); MEAN CORPUSCULAR HGB CONC 30.7 g/dl (32.0-36.5); MEAN CORPUSCULAR VOLUME 106.4 fl (80.0-96.0); PLATELET COUNT, AUTOMATED 199 10^3/uL (150-450); RED BLOOD COUNT 3.28 10^6/uL (4.30-6.10); WHITE BLOOD COUNT 9.7 10^3/uL (4.0-10.0)
[2019-12-07 11:32] LABS: ERYTHROCYTE SEDIMENTATION RATE 56 mm/hr (0-20)
== END ==
PROVIDERS: ATTEND Internal Medicine
DX: M46.40 Discitis, unspecified, site unspecified (principal)

== ENCOUNTER → 2020-01-04 | Outpatient (REF) | payer MEDICARE, MEDICAID ==
[2020-01-04 12:16] LABS: HEMOGLOBIN 9.5 g/dl (13.5-17.5); MEAN CORPUSCULAR HEMOGLOBIN 32.6 pg (27.0-33.0); MEAN CORPUSCULAR HGB CONC 30.6 g/dl (32.0-36.5); MEAN CORPUSCULAR VOLUME 106.5 fl (80.0-96.0); PLATELET COUNT, AUTOMATED 163 10^3/uL (150-450); RED BLOOD COUNT 2.91 10^6/uL (4.30-6.10); WHITE BLOOD COUNT 13.9 10^3/uL (4.0-10.0)
[2020-01-04 18:52] LABS: APPEARANCE, URINE CLEAR (CLEAR); BACTERIA, URINE AUTO 1+ (NEGATIVE); BILIRUBIN, URINE AUTO NEGATIVE (NEGATIVE); BLOOD, URINE BLOOD NEGATIVE (NEGATIVE); COLOR, URINE YELLOW (YELLOW); GLUCOSE, URINE (UA) AUTO NEGATIVE (NEGATIVE); KETONE, URINE AUTO NEGATIVE (NEGATIVE); LEUKOCYTE ESTERASE, URINE AUTO 1+ (NEGATIVE); NITRITE, URINE AUTO NEGATIVE (NEGATIVE); PROTEIN, URINE AUTO 2+ mg/dL (NEGATIVE); RBC, URINE AUTO 1 /HPF (0-3); SPECIFIC GRAVITY URINE AUTO 1.013 (1.002-1.035); SQUAMOUS EPITHELIAL CELL UR AU 0 /HPF (0-6); UROBILINOGEN, URINE AUTO 0.2 mg/dL (0.0-2.0); WBC, URINE AUTO 29 /HPF (0-3)
== END ==
PROVIDERS: ATTEND Physician Assistant
DX: D64.9 Anemia, unspecified (principal); Z79.899 Other long term (current) drug therapy

== ENCOUNTER → 2020-01-07 | Outpatient (REF) | payer MEDICARE, MEDICAID ==
[2020-01-07 13:31] LABS: HEMATOCRIT 34.9 % (42.0-52.0); HEMOGLOBIN 10.5 g/dl (13.5-17.5); MEAN CORPUSCULAR HEMOGLOBIN 31.6 pg (27.0-33.0); MEAN CORPUSCULAR HGB CONC 30.1 g/dl (32.0-36.5); MEAN CORPUSCULAR VOLUME 105.1 fl (80.0-96.0); PLATELET COUNT, AUTOMATED 223 10^3/uL (150-450); RED BLOOD COUNT 3.32 10^6/uL (4.30-6.10); WHITE BLOOD COUNT 11.5 10^3/uL (4.0-10.0)
[2020-01-07 14:01] LABS: ERYTHROCYTE SEDIMENTATION RATE 73 mm/hr (0-20)
== END ==
PROVIDERS: ATTEND Internal Medicine
DX: Z87.39 Personal history of other diseases of the musculoskeletal system and connective tissue (principal)

== ENCOUNTER → 2020-01-07 | Outpatient (CLI) | payer MEDICARE, MEDICAID ==
--- NOTE | 2020-01-07 14:06 | REPVR ---
PROCEDURE INFORMATION: Exam: MR Lumbar Spine Without Contrast. Exam date and time: 01/07/2020 1:42 PM Age: 69 years old Clinical indication: Pain; Other: Lt leg weakness, HX discitis TECHNIQUE: Imaging protocol: Multiplanar magnetic resonance images of the lumbar spine without intravenous contrast. COMPARISON: MRI-Spine, L.S. without con 12/20/2018 9:02 AM FINDINGS: Vertebrae: There is a mild lumbar dextroscoliosis. There is no fracture or listhesis. There is moderate to severe intervertebral disc space loss at L5/S1, with endplate changes, compatible with sequelae of preceding discitis/osteomyelitis. Spinal cord: Normal signal. No cord compression. L1-L2: There is shallow disc bulging. There is mild facet hypertrophy. The spinal canal and neural foramina are patent. L2-L3: There is shallow disc bulging. There is mild facet and ligamentous hypertrophy. Trace fluid is noted within the facet joints. There is mild left neural foraminal narrowing. L3-L4: There is disc bulging. There is moderate facet hypertrophy asymmetric to the left. There is mild right and moderate left neural foraminal narrowing. L4-L5: There is diffuse disc bulging. There is moderate to severe facet hypertrophy. There is a [id number]-[id number] bilateral neural foraminal narrowing. L5-S1: There is shallow disc bulging. There is mild facet hypertrophy. There is severe right and mild left neural foraminal narrowing. Soft tissues: Unremarkable. Other: There is a large 3.6 cm left common iliac artery aneurysm. IMPRESSION: 1. Degenerative disc disease and spondylosis. At L5/S1, changes contribute to severe right neural foraminal narrowing. 2. Sequelae of previous discitis/osteomyelitis at L3/4. 3. 3.6 cm left common iliac artery aneurysm. Electronically signed by: Jannie Barajas On 01/07/2020 14:06:41 PM
== END ==
LOC: M RAD 11:48
PROVIDERS: ATTEND Physician Assistant
DX: M51.36 Other intervertebral disc degeneration, lumbar region (principal); R53.1 Weakness; D72.829 Elevated white blood cell count, unspecified; Z87.39 Personal history of other diseases of the musculoskeletal system and connective tissue

== ENCOUNTER → 2020-01-31 | Outpatient (REF) | PROVIDERS: ATTEND Internal Medicine | DX: Z20.828 Contact with and (suspected) exposure to other viral communicable diseases (principal) ==

== ENCOUNTER → 2020-02-07 | Outpatient (REF) | payer MEDICARE, MEDICAID ==
[~2020-02-07] MED LIST changes: -DOK100TA; +DOK100TA2; -QUET1TAB7 PO; +QUET25TA3 PO; -STOO1CAP9 PO; +STOO240C PO
== END ==
LOC: EDSTATUS 03-17 12:24
PROVIDERS: ATTEND Internal Medicine
DX: Z20.828 Contact with and (suspected) exposure to other viral communicable diseases (principal)

== ENCOUNTER → 2020-02-12 | Outpatient (REF) ==
[~2020-02-12] MED LIST changes: +DOK100TA; -DOK100TA2; +QUET1TAB7 PO; -QUET25TA3 PO; +STOO1CAP9 PO; -STOO240C PO
[2020-02-12 11:43] LABS: BASO # 0.1 10^3/uL (0.0-0.2); BASO % 1.2 % (0.0-1.0); EOS # 0.4 10^3/uL (0.0-0.5); EOS % 5.6 % (0.0-3.0); HEMATOCRIT 33.1 % (42.0-52.0); LYMPH % 14.3 % (24.0-44.0); MEAN CORPUSCULAR HEMOGLOBIN 31.7 pg (27.0-33.0); MEAN CORPUSCULAR HGB CONC 30.2 g/dl (32.0-36.5); MEAN CORPUSCULAR VOLUME 105.1 fl (80.0-96.0); MONO # 0.7 10^3/uL (0.0-0.8); MONO % 10.1 % (0.0-5.0); NEUTROPHILS # 4.6 10^3/uL (1.5-8.5); NEUTROPHILS % 67.1 % (36.0-66.0); PLATELET COUNT, AUTOMATED 169 10^3/uL (150-450); RED BLOOD COUNT 3.15 10^6/uL (4.30-6.10); WHITE BLOOD COUNT 6.9 10^3/uL (4.0-10.0)
[2020-02-12 12:06] LABS: ERYTHROCYTE SEDIMENTATION RATE 52 mm/hr (0-20)
== END ==
PROVIDERS: ATTEND Internal Medicine
DX: M46.40 Discitis, unspecified, site unspecified (principal)

== ENCOUNTER → 2020-02-13 | Outpatient (REF) | payer MEDICARE, MEDICAID ==
[~2020-02-13] MED LIST changes: -DOK100TA; +DOK100TA2; -QUET1TAB7 PO; +QUET25TA3 PO; -STOO1CAP9 PO; +STOO240C PO
== END ==
PROVIDERS: ATTEND Internal Medicine
DX: Z20.828 Contact with and (suspected) exposure to other viral communicable diseases (principal)

== ENCOUNTER → 2020-03-02 | Outpatient (REF) ==
[~2020-03-02] MED LIST changes: +QUET1TAB7 PO; -QUET25TA3 PO
== END ==
PROVIDERS: ATTEND Internal Medicine
DX: Z20.828 Contact with and (suspected) exposure to other viral communicable diseases (principal)

== ENCOUNTER → 2020-03-06 | Outpatient (REF) | PROVIDERS: ATTEND Internal Medicine | DX: Z20.828 Contact with and (suspected) exposure to other viral communicable diseases (principal) ==

== ENCOUNTER → 2020-03-12 | Outpatient (REF) | PROVIDERS: ATTEND Internal Medicine | DX: Z20.828 Contact with and (suspected) exposure to other viral communicable diseases (principal) ==

== ENCOUNTER → 2020-03-18 | Outpatient (REF) | PROVIDERS: ATTEND Internal Medicine | DX: Z20.828 Contact with and (suspected) exposure to other viral communicable diseases (principal) ==

== ENCOUNTER → 2020-03-24 | Outpatient (REF) | payer MEDICARE, MEDICAID | PROVIDERS: ATTEND Internal Medicine | DX: Z20.822 Contact with and (suspected) exposure to COVID-19 (principal) ==

== ENCOUNTER → 2020-03-28 | Outpatient (REF) | payer MEDICARE, MEDICAID | PROVIDERS: ATTEND Internal Medicine | DX: Z20.822 Contact with and (suspected) exposure to COVID-19 (principal) ==

== ENCOUNTER → 2020-04-02 | Outpatient (REF) | payer MEDICARE, MEDICAID | PROVIDERS: ATTEND Internal Medicine | DX: Z20.822 Contact with and (suspected) exposure to COVID-19 (principal) ==

== ENCOUNTER → 2020-04-09 | Outpatient (REF) | payer MEDICARE, MEDICAID | PROVIDERS: ATTEND Internal Medicine | DX: Z20.822 Contact with and (suspected) exposure to COVID-19 (principal) ==

== ENCOUNTER → 2020-04-15 | Outpatient (REF) | payer MEDICARE, MEDICAID | PROVIDERS: ATTEND Internal Medicine | DX: M46.40 Discitis, unspecified, site unspecified (principal) ==

== ENCOUNTER → 2020-04-16 | Outpatient (REF) | payer MEDICARE, MEDICAID | PROVIDERS: ATTEND Internal Medicine | DX: Z20.822 Contact with and (suspected) exposure to COVID-19 (principal) ==

== ENCOUNTER → 2020-04-23 | Outpatient (REF) | payer MEDICARE, MEDICAID | PROVIDERS: ATTEND Internal Medicine | DX: Z20.822 Contact with and (suspected) exposure to COVID-19 (principal) ==

== ENCOUNTER → 2020-04-30 | Outpatient (REF) | payer MEDICARE, MEDICAID ==
[~2020-04-30] MED LIST changes: -QUET1TAB7 PO; +QUET25TA3 PO
== END ==
PROVIDERS: ATTEND Internal Medicine
DX: Z20.822 Contact with and (suspected) exposure to COVID-19 (principal)

== ENCOUNTER → 2020-05-07 | Outpatient (REF) | payer MEDICARE, MEDICAID | PROVIDERS: ATTEND Internal Medicine | DX: Z20.822 Contact with and (suspected) exposure to COVID-19 (principal) ==

== ENCOUNTER → 2020-05-14 | Outpatient (REF) | payer MEDICARE, MEDICAID ==
[~2020-05-14] MED LIST changes: -PEG1POW PO; +POLY17PO18 PO
== END ==
PROVIDERS: ATTEND Internal Medicine
DX: Z20.822 Contact with and (suspected) exposure to COVID-19 (principal)

== ENCOUNTER → 2020-05-21 | Outpatient (REF) | payer MEDICARE, MEDICAID | PROVIDERS: ATTEND Internal Medicine | DX: Z20.822 Contact with and (suspected) exposure to COVID-19 (principal) ==

== ENCOUNTER → 2020-05-28 | Outpatient (REF) | payer MEDICARE, MEDICAID | PROVIDERS: ATTEND Internal Medicine | DX: Z11.52 Encounter for screening for COVID-19 (principal) ==

== ENCOUNTER → 2020-07-01 | Outpatient (REF) | payer MEDICARE, MEDICAID | PROVIDERS: ATTEND Internal Medicine | DX: Z20.822 Contact with and (suspected) exposure to COVID-19 (principal) ==

== ENCOUNTER → 2020-07-08 | Outpatient (REF) | payer MEDICARE, MEDICAID | PROVIDERS: ATTEND Internal Medicine | DX: Z20.822 Contact with and (suspected) exposure to COVID-19 (principal) ==

== ENCOUNTER 2020-08-09 13:06 | Emergency (ER) | payer MEDICARE, MEDICAID ==
[~2020-08-09] VITALS: Ht 170.2 cm; Wt 106.4 kg
[2020-08-09 15:17] VITALS: BP 170/73
== END 2020-08-09 15:20 | disposition home or self-care (01) ==
LOC: EDBD 13:06 → M ED 13:06
DX: H26.9 Unspecified cataract (principal); J44.9 Chronic obstructive pulmonary disease, unspecified; I11.0 Hypertensive heart disease with heart failure; I50.9 Heart failure, unspecified; N18.6 End stage renal disease; E11.9 Type 2 diabetes mellitus without complications; F25.9 Schizoaffective disorder, unspecified; Z79.899 Other long term (current) drug therapy; Z79.82 Long term (current) use of aspirin; Z79.4 Long term (current) use of insulin; Z79.01 Long term (current) use of anticoagulants; Z88.4 Allergy status to anesthetic agent; Z99.2 Dependence on renal dialysis; F17.210 Nicotine dependence, cigarettes, uncomplicated

== ENCOUNTER → 2020-12-01 | Outpatient (CLI) | payer MEDICARE, MEDICAID ==
[~2020-12-01] MED LIST changes: +QUET1TAB17 PO; -QUET25TA3 PO
--- NOTE | 2020-12-01 14:46 | REP ---
INDICATION: PVD PT IN CT HOLDING AREA. COMPARISON: 10/25/2016. TECHNIQUE: Real time aguilar scale and Duplex Doppler evaluation of the right lower extremity arterial vasculature using linear high frequency transducer. FINDINGS: . Duplex doppler interrogation demonstrates heavily calcified vessels diffusely. Left common iliac artery could not be visualized due to bowel gas. Left external iliac artery demonstrates peak systolic velocity 77.9 centimeter/second. There are diffuse monophasic waveforms. The arterial structures of the leg are not optimally visualized due to soft tissue edema. No focal stenosis is seen in the thigh. The posterior tibial artery is not visualized and may be occluded. PSV(cm/sec) Common femoral artery: 57 cm/s Profunda femoris artery: 52 cm/s Proximal superficial femoral artery: 55 cm/s Mid superficial femoral artery: 28 cm/s Distal superficial femoral artery: 36 cm/s Popliteal artery: 18 cm/s Proximal SAEED: 23 cm/s Tibioperoneal trunk: 35 cm/s Proximal RESOLUTION MANAGER: Not visualized Distal RESOLUTION MANAGER: Not visualized Distal SAEED: 52 cm/s IMPRESSION: Heavily calcified arterial system of the left lower extremity. Limited evaluation due to soft tissue edema. Diffuse monophasic waveforms. No compelling duplex Doppler sonographic evidence for focal stenosis. Posterior tibial artery is not visualized and may be occluded. <Electronically signed by Prabhu Aguilar > 12/01/20 [id number]
== END ==
LOC: M RAD 13:42
PROVIDERS: ATTEND Physician Assistant
DX: I73.9 Peripheral vascular disease, unspecified (principal)

== ENCOUNTER → 2020-12-11 | Outpatient (REF) | payer MEDICARE, MEDICAID | PROVIDERS: ATTEND Physician Assistant | DX: E11.9 Type 2 diabetes mellitus without complications (principal); Z53.8 Procedure and treatment not carried out for other reasons ==

== ENCOUNTER → 2021-06-08 | Outpatient (REF) | payer MEDICARE, MEDICAID ==
[~2021-06-08] MED LIST changes: -FLUC200T2 PO; +FLUC200T4 PO; -HALO5TA; -HALO5TA PO; +HALO5TAB33; +HALO5TAB33 PO
== END ==
PROVIDERS: ATTEND Internal Medicine
DX: N18.9 Chronic kidney disease, unspecified (principal); Z53.9 Procedure and treatment not carried out, unspecified reason

== ENCOUNTER → 2021-07-09 | Outpatient (REF) | payer MEDICARE, MEDICAID | PROVIDERS: ATTEND Internal Medicine | DX: R05.9 Cough, unspecified (principal) ==

== ENCOUNTER → 2021-07-31 | Outpatient (REF) | payer MEDICARE, MEDICAID ==
[2021-07-31 14:11] LABS: HEMATOCRIT 34.4 % (42.0-52.0); HEMOGLOBIN 10.9 g/dl (13.5-17.5); MEAN CORPUSCULAR HEMOGLOBIN 32.2 pg (27.0-33.0); MEAN CORPUSCULAR HGB CONC 31.7 g/dl (32.0-36.5); MEAN CORPUSCULAR VOLUME 101.8 fl (80.0-96.0); PLATELET COUNT, AUTOMATED 158 10^3/uL (150-450); RED BLOOD COUNT 3.38 10^6/uL (4.30-6.10); WHITE BLOOD COUNT 9.8 10^3/uL (4.0-10.0)
== END ==
PROVIDERS: ATTEND Internal Medicine
DX: R22.42 Localized swelling, mass and lump, left lower limb (principal)

== ENCOUNTER → 2021-08-10 | Outpatient (REF) | payer MEDICARE, MEDICAID | PROVIDERS: ATTEND Internal Medicine | DX: Z53.9 Procedure and treatment not carried out, unspecified reason (principal) ==

== ENCOUNTER → 2022-02-16 | Outpatient (REF) | payer MEDICARE, MEDICAID ==
[~2022-02-16] MED LIST changes: +ACET-907 PO; +ALB2.5NEB NEB; +CLOP75TA99 PO; +DEPA1CAP PO; +ELIQ2.5T PO; +EUCECRE12 TOP; +FLUC150T9 PO; +GABA-282 PO; +INSU100V3 SQ; +OLAN7.5T8 PO; -PLAV1TAB2 PO; +SENN-23 PO; +SEVE800T3 PO; +VASEGEL6 TOP
== END ==
PROVIDERS: ATTEND Internal Medicine
DX: R09.02 Hypoxemia (principal); N18.6 End stage renal disease

== ENCOUNTER → 2022-02-16 | Outpatient (REF) | payer MEDICARE, MEDICAID | PROVIDERS: ATTEND Internal Medicine | DX: R09.02 Hypoxemia (principal); Z53.8 Procedure and treatment not carried out for other reasons ==

== ENCOUNTER 2022-02-17 12:45 | Observation (INO) | payer MEDICARE, MEDICAID ==
[~2022-02-17] VITALS: Ht 170.2 cm; Wt 98.5 kg
[~2022-02-17 12:45] MED LIST changes: -ACET-907 PO; -ALB2.5NEB NEB; -DEPA1CAP PO; -ELIQ2.5T PO; -EUCECRE12 TOP; -FLUC150T9 PO; -GABA-282 PO; -INSU100V3 SQ; -OLAN7.5T8 PO; -SENN-23 PO; -SEVE800T3 PO; -VASEGEL6 TOP
[2022-02-17 14:08] LABS: ABG BASE EXCESS -2.2 (-2.0-2.0); ABG PARTIAL PRESSURE CO2 35.6 mmHg (35.0-45.0); ABG PARTIAL PRESSURE O2 57.5 mmHg (75.0-100.0); ABG STANDARD HCO3 22.5 MEQ/L (22.0-26.0); ABG TOTAL CO2 23.1 MEQ/L (23.0-31.0); ABG pH (ARTERIAL) 7.409 UNITS (7.350-7.450)
[2022-02-17 14:29] LABS: BASO # 0.1 10^3/uL (0.0-0.2); BASO % 0.7 % (0.0-1.0); EOS # 0.4 10^3/uL (0.0-0.5); HEMATOCRIT 33.6 % (42.0-52.0); HEMOGLOBIN 10.7 g/dl (13.5-17.5); LYMPH # 1.1 10^3/uL (1.5-5.0); MEAN CORPUSCULAR HEMOGLOBIN 35.2 pg (27.0-33.0); MEAN CORPUSCULAR HGB CONC 31.8 g/dl (32.0-36.5); MEAN CORPUSCULAR VOLUME 110.5 fl (80.0-96.0); MONO # 1.3 10^3/uL (0.0-0.8); MONO % 11.1 % (2.0-8.0); NEUTROPHILS # 9.1 10^3/uL (1.5-8.5); NEUTROPHILS % 75.7 % (36.0-66.0); PLATELET COUNT, AUTOMATED 160 10^3/uL (150-450); RED BLOOD COUNT 3.04 10^6/uL (4.30-6.10)
[2022-02-17 14:52] LABS: BILIRUBIN,DIRECT 0.1 MG/DL (<0.4)
[2022-02-17 14:53] LABS: ALBUMIN 2.8 G/DL (3.2-5.2); BILIRUBIN,TOTAL 0.3 MG/DL (0.3-1.2); CALCIUM LEVEL 7.5 MG/DL (8.3-10.6); CREATININE FOR GFR 6.8 MG/DL (0.70-1.30); GLOMERULAR FILTRATION RATE 8.6 (>42); POTASSIUM SERUM 5.1 MMOL/L (3.5-5.1); TOTAL PROTEIN 6.1 G/DL (5.7-8.2)
[2022-02-17 14:56] LABS: THYROXINE (T4) 7.9 UG/DL (4.5-10.9)
[2022-02-17 14:57] LABS: THYROID STIMULATING HORMONE 2.491 uIU/ML (0.55-4.78)
[2022-02-17 15:34] LABS: INR 1.17; PROTHROMBIN TIME 15.2 SECONDS (12.5-14.5)
[2022-02-17] MEDS ORDERED: ISOVUE-370 76% 100ML VIAL As Ordered ONE (15:56)
[2022-02-17] MEDS ORDERED: cefTRIAXone SOD 1 GM in D5W MINI-BAG PLUS 50 ML IV ONE (16:45)
[2022-02-17] MEDS ORDERED: AZITHROMYCIN INJ 500 MG, VIAL MATE ADAPTER 1 EACH in D5W 250 ML IV ONE (16:45)
[2022-02-17] MEDS ORDERED: MAALOX 30 ML SUSP *UDC PO PRN (18:35)
[2022-02-17] MEDS ORDERED: MOM 30ML SUSPENSION UDC PO PRN (18:35)
[2022-02-17] MEDS ORDERED: ACETAMINOPHEN TAB 650MG DOSE (2X325MG) PO PRN (18:35)
[2022-02-17] MEDS ORDERED: EUCECRE12 TOP (19:13)
[2022-02-17] MEDS ORDERED: INSU100V3 SQ ×2 (19:27)
[2022-02-17] MEDS ORDERED: SENN-23 PO (19:27)
[2022-02-17] MEDS ORDERED: DEPA1CAP PO (19:27)
[2022-02-17] MEDS ORDERED: OLAN7.5T8 PO (19:27)
[2022-02-17] MEDS ORDERED: VASEGEL6 TOP (19:27)
[2022-02-17] MEDS ORDERED: ELIQ2.5T PO (19:27)
[2022-02-17] MEDS ORDERED: HYDR-3910 PO (19:30)
[2022-02-17] MEDS ORDERED: SEVE800T3 PO (19:36)
[2022-02-17] MEDS ORDERED: ACET-907 PO (19:39)
[2022-02-17] MEDS ORDERED: GABA-282 PO (19:39)
[2022-02-17] MEDS ORDERED: FUROSEMIDE 100MG/10ML VIAL IV ONE (19:40)
[2022-02-17] MEDS ORDERED: HOME MED LIST COMPLETE! XX SCH (19:45)
[2022-02-17] MEDS ORDERED: GLUCOSE 4GM CHEW TABLET PO PRN (20:00)
[2022-02-17] MEDS ORDERED: DEXTROSE 50% 50ML SYRINGE IV PRN (20:00)
[2022-02-17] MEDS ORDERED: GLUCAGON INJ 1MG VIAL SC PRN (20:00)
[2022-02-17] MEDS ORDERED: GABAPENTIN 300 MG CAP PO PRN (20:05)
[2022-02-17] MEDS ORDERED: **hydrALAZINE HCL** 25 MG TAB PO PRN (20:15)
[2022-02-17] MEDS ORDERED: NITROGLYCERIN 0.4MG SUBL TABLET SL PRN (20:15)
[2022-02-17] MEDS: SENOKOT S TAB PO SCH (21:00)
[2022-02-17] MEDS ORDERED: FLUCONAZOLE 50MG TABLET PO ONE (21:00)
[2022-02-17] MEDS ORDERED: LEVEMIR (INSULIN DETEMIR) 1 UNITS/0.01ML SC SCH (21:00)
[2022-02-17] MEDS: OLANZapine 2.5MG TABLET PO SCH (21:00)
[2022-02-17] MEDS: INSULIN LISPRO (NovoLOG) PER UNIT SC SCH (21:00)
[2022-02-17] MEDS: ATORVASTATIN 20 MG TAB PO SCH (22:32)
[2022-02-17] MEDS: DOXYCYCLINE HYCLATE 100 MG in D5W MINI-BAG PLUS 100 ML IV SCH (22:32)
[2022-02-17] MEDS: APIXABAN 2.5 MG TAB (ELIQUIS) PO SCH (22:33)
[2022-02-17] MEDS: DIVALPROEX SPRINKLE 125 MG CAP PO SCH (22:33)
[2022-02-18] MEDS ORDERED: ALBUTEROL SULFATE 2.5MG/0.5ML INH NEB SOLN NEB PRN (07:25)
[2022-02-18] MEDS: INSULIN LISPRO (NovoLOG) PER UNIT SC SCH ×4 (07:30→20:20)
[2022-02-18 08:00] VITALS: BP 114/97
[2022-02-18] MEDS ORDERED: AZITHROMYCIN 250MG TABLET PO SCH ×2 (09:00→18:00)
[2022-02-18] MEDS ORDERED: HEPARIN 1,000UNITS/ML 10ML VIAL (FOR RADIOLOGY & DIALYSIS ONLY) XX SCH (09:25)
[2022-02-18] MEDS ORDERED: SODIUM CHLORIDE 0.9% 1000ML IV PRN (09:25)
[2022-02-18] MEDS ORDERED: LIDOCAINE 1% SDV 5ML VIAL SC PRN (09:25)
[2022-02-18] MEDS ORDERED: HEPARIN 1,000UNITS/ML 10ML VIAL (FOR RADIOLOGY & DIALYSIS ONLY) IV PRN (09:25)
[2022-02-18 09:37] LABS: BASO # 0.1 10^3/uL (0.0-0.2); BASO % 0.9 % (0.0-1.0); EOS # 0.5 10^3/uL (0.0-0.5); EOS % 5.3 % (0.0-3.0); HEMATOCRIT 32.6 % (42.0-52.0); HEMOGLOBIN 10.2 g/dl (13.5-17.5); LYMPH # 1.4 10^3/uL (1.5-5.0); LYMPH % 16.8 % (24.0-44.0); MEAN CORPUSCULAR HGB CONC 31.3 g/dl (32.0-36.5); MEAN CORPUSCULAR VOLUME 108.7 fl (80.0-96.0); NEUTROPHILS # 5.5 10^3/uL (1.5-8.5); NEUTROPHILS % 64.2 % (36.0-66.0); PLATELET COUNT, AUTOMATED 139 10^3/uL (150-450); WHITE BLOOD COUNT 8.6 10^3/uL (4.0-10.0)
[2022-02-18 10:08] LABS: CALCIUM LEVEL 7.5 MG/DL (8.3-10.6); CREATININE FOR GFR 7.12 MG/DL (0.70-1.30); GLOMERULAR FILTRATION RATE 8.1 (>42); POTASSIUM SERUM 4.9 MMOL/L (3.5-5.1)
[2022-02-18] MEDS: DIVALPROEX SPRINKLE 125 MG CAP PO SCH ×2 (10:26→22:52)
[2022-02-18] MEDS: ASPIRIN 81MG ENTERIC TABLET PO SCH (10:26)
[2022-02-18] MEDS: APIXABAN 2.5 MG TAB (ELIQUIS) PO SCH ×2 (10:26→22:17)
[2022-02-18] MEDS: LEVEMIR (INSULIN DETEMIR) 1 UNITS/0.01ML SC SCH (10:27)
[2022-02-18] MEDS: (RENVELA) SEVELAMER **CARBONate** 800 MG TAB PO SCH ×3 (10:27→17:45)
[2022-02-18] MEDS: DOXYCYCLINE HYCLATE 100 MG in D5W MINI-BAG PLUS 100 ML IV SCH (10:28)
[2022-02-18] MEDS: atenoloL 50 MG TAB PO SCH (10:31)
[2022-02-18] MEDS ORDERED: FLUCONAZOLE 50MG TABLET PO ONE (16:00)
[2022-02-18 16:15] VITALS: BP 105/58
[2022-02-18] MEDS ORDERED: FLUC150T9 PO (16:16)
[2022-02-18] MEDS ORDERED: cefTRIAXone SOD 1 GM in D5W MINI-BAG PLUS 50 ML IV SCH (18:00)
[2022-02-18 20:15] VITALS: BP 104/60
[2022-02-18] MEDS: SENOKOT S TAB PO SCH (20:57)
[2022-02-18] MEDS ORDERED: DOXYCYCLINE HYCLATE 100MG TABLET PO SCH (21:00)
[2022-02-18] MEDS: ATORVASTATIN 20 MG TAB PO SCH (22:16)
[2022-02-18] MEDS: OLANZapine 2.5MG TABLET PO SCH (22:17)
[2022-02-19 06:00] VITALS: BP 155/71
[2022-02-19] MEDS: INSULIN LISPRO (NovoLOG) PER UNIT SC SCH ×2 (07:30→13:18)
[2022-02-19] MEDS ORDERED: IPRATROPIUM 0.5MG/ALBUTEROL 2.5MG INH SOL UD 3ML (DUONEB) NEB ONE (08:25)
[2022-02-19 08:47] LABS: BASO # 0.1 10^3/uL (0.0-0.2); BASO % 0.9 % (0.0-1.0); EOS # 0.4 10^3/uL (0.0-0.5); EOS % 5.3 % (0.0-3.0); HEMATOCRIT 33.4 % (42.0-52.0); HEMOGLOBIN 10.6 g/dl (13.5-17.5); LYMPH # 1.2 10^3/uL (1.5-5.0); LYMPH % 14.9 % (24.0-44.0); MEAN CORPUSCULAR HEMOGLOBIN 34.3 pg (27.0-33.0); MEAN CORPUSCULAR HGB CONC 31.7 g/dl (32.0-36.5); MEAN CORPUSCULAR VOLUME 108.1 fl (80.0-96.0); MONO # 0.9 10^3/uL (0.0-0.8); MONO % 11.7 % (2.0-8.0); NEUTROPHILS # 5.3 10^3/uL (1.5-8.5); NEUTROPHILS % 66.3 % (36.0-66.0); PLATELET COUNT, AUTOMATED 146 10^3/uL (150-450); RED BLOOD COUNT 3.09 10^6/uL (4.30-6.10); WHITE BLOOD COUNT 7.9 10^3/uL (4.0-10.0)
[2022-02-19] MEDS: (RENVELA) SEVELAMER **CARBONate** 800 MG TAB PO SCH ×2 (08:55→13:18)
[2022-02-19] MEDS: ASPIRIN 81MG ENTERIC TABLET PO SCH (08:55)
[2022-02-19 08:56] VITALS: BP 147/69
[2022-02-19] MEDS: atenoloL 50 MG TAB PO SCH (08:56)
[2022-02-19] MEDS: DIVALPROEX SPRINKLE 125 MG CAP PO SCH (08:56)
[2022-02-19] MEDS: APIXABAN 2.5 MG TAB (ELIQUIS) PO SCH (08:57)
[2022-02-19] MEDS: LEVEMIR (INSULIN DETEMIR) 1 UNITS/0.01ML SC SCH (09:00)
[2022-02-19] MEDS ORDERED: LEVEMIR (INSULIN DETEMIR) 1 UNITS/0.01ML SC ONE (09:05)
[2022-02-19 09:42] LABS: CALCIUM LEVEL 7.7 MG/DL (8.3-10.6); CREATININE FOR GFR 5.13 MG/DL (0.70-1.30); GLOMERULAR FILTRATION RATE 11.9 (>42); POTASSIUM SERUM 4.6 MMOL/L (3.5-5.1)
[2022-02-19] MEDS ORDERED: ALB2.5NEB NEB (11:13)
== END 2022-02-19 13:40 ==
LOC: M ED 12:45 → M ED INP 12:46 → M MSPAV 02-18 16:20
PROVIDERS: ADMIT Internal Medicine; ATTEND Internal Medicine
DX: N18.6 End stage renal disease (principal); Z99.2 Dependence on renal dialysis; Z91.15 Patient's noncompliance with renal dialysis; J96.01 Acute respiratory failure with hypoxia; J44.9 Chronic obstructive pulmonary disease, unspecified; G47.9 Sleep disorder, unspecified; R53.83 Other fatigue; R91.8 Other nonspecific abnormal finding of lung field; R29.810 Facial weakness; B37.89 Other sites of candidiasis; I25.10 Atherosclerotic heart disease of native coronary artery without angina pectoris; I12.0 Hypertensive chronic kidney disease with stage 5 chronic kidney disease or end stage renal disease; E11.42 Type 2 diabetes mellitus with diabetic polyneuropathy; F25.9 Schizoaffective disorder, unspecified; I73.9 Peripheral vascular disease, unspecified; Z86.718 Personal history of other venous thrombosis and embolism; Z95.5 Presence of coronary angioplasty implant and graft; I25.2 Old myocardial infarction; R56.9 Unspecified convulsions; Z89.422 Acquired absence of other left toe(s); Z89.611 Acquired absence of right leg above knee; Z87.891 Personal history of nicotine dependence; Z88.4 Allergy status to anesthetic agent; Z79.899 Other long term (current) drug therapy; Z79.01 Long term (current) use of anticoagulants; Z79.82 Long term (current) use of aspirin; Z79.4 Long term (current) use of insulin
CPT/HCPCS: 36415; 36600; 70450; 71045; 71275; 80048; 80076; 82803; 83880; 84145; 84436; 84443; 85025; 85610; 87040; 87486; 87581; 87633; 87635; 87798; 93005; 93041; 94640; 94760; 96365; 96368; 96375; 96376; 99285; G0257; G0378; J0456; J0696; J1815; J1940; Q9967

== ENCOUNTER → 2022-02-17 | Outpatient (REF) | payer MEDICARE, MEDICAID | LOC: M PLAIMG 09:12 | PROVIDERS: ATTEND Internal Medicine | DX: N18.6 End stage renal disease (principal); I51.7 Cardiomegaly ==

== ENCOUNTER → 2022-02-17 | Outpatient (REF) | payer MEDICARE, MEDICAID ==
[2022-02-17 12:08] LABS: BASO # 0.1 10^3/uL (0.0-0.2); BASO % 0.7 % (0.0-1.0); EOS # 0.4 10^3/uL (0.0-0.5); EOS % 3.7 % (0.0-3.0); HEMATOCRIT 34.3 % (42.0-52.0); HEMOGLOBIN 10.7 g/dl (13.5-17.5); LYMPH # 1.3 10^3/uL (1.5-5.0); LYMPH % 12.3 % (24.0-44.0); MEAN CORPUSCULAR HEMOGLOBIN 34.9 pg (27.0-33.0); MEAN CORPUSCULAR HGB CONC 31.2 g/dl (32.0-36.5); MEAN CORPUSCULAR VOLUME 111.7 fl (80.0-96.0); MONO # 1.1 10^3/uL (0.0-0.8); MONO % 9.9 % (2.0-8.0); NEUTROPHILS # 7.8 10^3/uL (1.5-8.5); NEUTROPHILS % 72.8 % (36.0-66.0); PLATELET COUNT, AUTOMATED 159 10^3/uL (150-450); RED BLOOD COUNT 3.07 10^6/uL (4.30-6.10); WHITE BLOOD COUNT 10.7 10^3/uL (4.0-10.0)
== END ==
PROVIDERS: ATTEND Internal Medicine
DX: R09.02 Hypoxemia (principal)

== ENCOUNTER → 2022-03-12 | Outpatient (REF) | payer MEDICARE, MEDICAID ==
[~2022-03-12] MED LIST changes: +ACET-907 PO; +ALB2.5NEB NEB; +DEPA1CAP PO; +ELIQ2.5T PO; +EUCECRE12 TOP; +FLUC150T9 PO; +GABA-282 PO; +INSU100V3 SQ; +OLAN7.5T8 PO; +SENN-23 PO; +SEVE800T3 PO; +VASEGEL6 TOP
== END ==
PROVIDERS: ATTEND Internal Medicine
DX: R05.9 Cough, unspecified (principal)